=== PATIENT | female | born 1955 | race Caucasian/White ===

== ENCOUNTER → 2020-09-25 09:35 | Outpatient (CLI) | payer MEDICARE, SELFPAY ==
[2020-09-25 08:30] VITALS: BMI 42.5
[2020-09-25 10:24] LABS: Erythrocyte Sedimentation Rate 15 mm/hr (0-30); Hematocrit 40.1 % (37-47); Hemoglobin 12.8 g/dL (12.0-15.0); Mean Corp Hgb Conc 31.9 g/dL (32-36); Mean Corpuscular Hgb 29.9 pg (27.0-32.0); Mean Corpuscular Volume 93.7 fL (81-99); Mean Platelet Vol. 11.2 fl (6.2-12.0); Platelet Count 310 K/mm3 (150-450); Red Blood Count 4.28 M/mm3 (4.2-5.4); White Blood Count 9.5 K/mm3 (4.4-11.0)
[2020-09-25 10:48] LABS: PTHIN 321.1 pg/mL (18.4-80.1)
[2020-09-25 10:52] LABS: Vitamin B12 502 pg/mL (211-911)
[2020-09-25 10:58] LABS: ALB/GLOB Ratio 0.9 RATIO (0.9-2.4); AST(SGOT) 45 U/L (15-37); Alanine Aminotransfer ALT/SGPT 51 U/L (13-56); Albumin, Serum 3.9 g/dL (3.2-5.0); Alkaline Phosphatase 238 U/L (45-117); Anion Gap 6 (5-15); BUN 26 mg/dL (7-18); BUN/Creat Ratio 14.8 RATIO (10-20); Chloride 104 mmol/L (98-107); Creatinine, Serum 1.76 mg/dL (0.55-1.02); EST Glomerular Filtration Rate 31 mL/min (>60); Est Glom Filt Rate - Afr Amer 37 mL/min (>60); Globulin 4.3 g/dL (2.2-4.2); Glucose 156 mg/dL (74-106); Potassium 3.9 mmol/L (3.5-5.1); Protein, Total 8.2 g/dL (6.4-8.2); Sodium Level 139 mmol/L (136-145); Thyroid Stim Hormone (TSH) 4.77 uIU/mL (0.358-3.74)
[2020-09-25 18:34] LABS: CPK Total, Creatine Kinase 1081 U/L (26-192)
[2020-09-27 20:07] LABS: Free Kappa Light Chains 47.9 mg/L (3.3-19.4); Free Lambda Light Chains 24.2 mg/L (5.7-26.3)
[2020-09-29 16:07] LABS: Aldolase 12.3 U/L (3.3-10.3)
[2020-09-29 16:31] LABS: ANTINUCLEAR ANTIBODIES DIRECT Negative (Negative)
[2020-09-29 16:33] LABS: Myoglobin, Serum 908 ng/mL (25-58)
== END ==
PROVIDERS: Referring Provider Psychiatry & Neurology Neurology; Visit Provider Psychiatry & Neurology Neurology
DX: G62.9 Polyneuropathy, unspecified (principal); H02.409 Unspecified ptosis of unspecified eyelid; E11.9 Type 2 diabetes mellitus without complications; E55.9 Vitamin D deficiency, unspecified; E83.52 Hypercalcemia; M79.10 Myalgia, unspecified site; Z86.39 Personal history of other endocrine, nutritional and metabolic disease
CPT/HCPCS: 36415; 80053; 82085; 82550; 82607; 82652; 82746; 83874; 83883; 83970; 84443; 85027; 85652; 86038; 86225; 86235

== ENCOUNTER → 2020-10-09 15:36 | Outpatient (CLI) | payer MEDICARE, SELFPAY ==
[2020-09-25 08:30] VITALS: BMI 42.5
== END ==
PROVIDERS: Referring Provider Psychiatry & Neurology Neurology; Visit Provider Psychiatry & Neurology Neurology
DX: H02.409 Unspecified ptosis of unspecified eyelid (principal); G43.909 Migraine, unspecified, not intractable, without status migrainosus; G62.9 Polyneuropathy, unspecified; Z86.39 Personal history of other endocrine, nutritional and metabolic disease

== ENCOUNTER → 2020-11-06 15:23 | Outpatient (CLI) | payer MEDICARE, SELFPAY ==
[2020-11-06 14:34] VITALS: BMI 40.6
[2020-11-06 16:52] LABS: Hemoglobin A1c 6.5 % (3.8-5.6)
[2020-11-06 16:56] LABS: Cholesterol 279 mg/dL (200); High Density Lipoprotein 37 mg/dL; T4 Free Direct 1.09 ng/dL (0.76-1.46); Thyroid Stim Hormone (TSH) 1.46 uIU/mL (0.358-3.74); Triglycerides 399 mg/dL; Very Low Density Lipoprotein 80 mg/dL (5-40)
[2020-11-06 16:59] LABS: Microalbumin:Creatinine Ratio 93.6 mg/g CRE (<30 mg/g CRE)
== END ==
PROVIDERS: PCP Internal Medicine; Referring Provider Internal Medicine; Visit Provider Internal Medicine
DX: E11.9 Type 2 diabetes mellitus without complications (principal); R79.89 Other specified abnormal findings of blood chemistry; I10 Essential (primary) hypertension
CPT/HCPCS: 36415; 80061; 82043; 82570; 83036; 84439; 84443

== ENCOUNTER → 2020-11-19 15:45 | Outpatient (CLI) | payer MEDICARE, SELFPAY ==
[2020-11-06 14:34] VITALS: BMI 40.6
[2020-11-19 15:49] LABS: Bacteria 0 SEEN /hpf (None Seen); Mucous, Urine 0 SEEN /hpf (<or=2+); Red Blood Cells-Urine 0 SEEN /hpf (0-5); Squamous Epithelial Cells - UA 0 SEEN /hpf (5-10)
[2020-11-19 16:17] LABS: Color, Urine Yellow (Yellow); Glucose, Dipstick Normal (Normal); Ketone-Dipstick Negative (Negative); Leukocyte Esterase-Dipstick 500 /ul (Negative); Nitrite-Dipstick Negative (Negative); Occult Blood-Urine Negative /ul (Negative); Protein-Dipstick 15 mg/dl (Negative); Urine Bilirubin Dipstick Negative (Negative); Urine Clarity Sl. Cloudy (Clear); Urine Urobilinogen Normal (Normal)
[2020-11-19 17:36] LABS: Hyaline Cast 5-10 SEEN /lpf (0-5)
[2020-11-19 17:38] LABS: Transitional Epithelial - Ur 0-5 SEEN /hpf (0-5); White Blood Cells 10-25 SEEN /hpf (0-5)
[2020-11-19 17:40] LABS: Renal Epithelial Cells 0-5 SEEN /hpf (0-5)
== END ==
PROVIDERS: PCP Internal Medicine; Visit Provider Internal Medicine Nephrology
DX: N18.32 Chronic kidney disease, stage 3b (principal); N39.0 Urinary tract infection, site not specified
CPT/HCPCS: 81001; 87086; 87088

== ENCOUNTER → 2020-11-28 11:17 | Outpatient (CLI) | payer MEDICARE, SELFPAY ==
[2020-11-06 14:34] VITALS: BMI 40.6
--- NOTE | 2020-11-28 11:23 | US_ITS ---
STUDY: RENAL ULTRASOUND - COMPLETE REASON FOR EXAM: Female, 65 years old. CKD3B TECHNIQUE: Ultrasound evaluation of the kidneys was performed with real-time and static blake-scale imaging. COMPARISON: None. FINDINGS: RIGHT KIDNEY: Normal location of the right kidney, which is normal in size. The right kidney measures 9.2 cm x 5.4 cm x 5 cm. There is a normal cortex of the right kidney. The renal cortex measures 1.3 cm. There is no right renal mass or cyst. There are no right renal calculi. There is no right hydronephrosis. DISTAL RIGHT URETER: There is non-visualization of the distal right ureter. There is no demonstrated right ureterovesical junction calculus. There is no demonstrated right ureteral jet. LEFT KIDNEY: Normal location of the left kidney, which is normal in size. The left kidney measures 9.8 cm x 4.77 x 5.7 cm. There is a normal cortex of the left kidney. The renal cortex measures 2.1 cm. There is a 1.3 cm x 1.6 cm x 1.3 cm left renal cyst. There are no left renal calculi. There is no left hydronephrosis. DISTAL LEFT URETER: There is non-visualization of the distal left ureter. There is no demonstrated left ureterovesical junction calculus. There is no demonstrated left ureteral jet. BLADDER: The distended urinary bladder has a volume of 63 ml. The bladder cannot be assessed adequately due to lack of distention. US/Kidney and Bladder IMPRESSION: Left renal cyst. Electronically Signed: Bernardo Queen MD at 12:35 EST , Service support ,
[2020-11-28 13:34] LABS: CPK Total, Creatine Kinase 982 U/L (26-192); T4 Free Direct 0.86 ng/dL (0.76-1.46); Thyroid Stim Hormone (TSH) 3.74 uIU/mL (0.358-3.74)
[2020-12-02 20:07] LABS: Albumin 3.4 g/dL (2.9-4.4); Aldolase 10.9 U/L (3.3-10.3); Alpha-1-Globulins 0.2 g/dL (0.0-0.4); Alpha-2-Globulins 1.1 g/dL (0.4-1.0); Immunoglobulin A 164 mg/dL (87-352); Immunoglobulin G 1061 mg/dL (586-1602); Immunoglobulin M 77 mg/dL (26-217); PROEL- TOTAL PROTEIN 6.8 g/dL (6.0-8.5)
[2020-12-03 13:01] LABS: Myoglobin, Serum 966 ng/mL (25-58)
== END ==
PROVIDERS: Psychiatry & Neurology Neurology; PCP Internal Medicine; Referring Provider Internal Medicine Nephrology; Visit Provider Internal Medicine Nephrology
DX: N18.32 Chronic kidney disease, stage 3b (principal); E03.9 Hypothyroidism, unspecified; G62.9 Polyneuropathy, unspecified; G72.9 Myopathy, unspecified
CPT/HCPCS: 36415; 76770; 82085; 82550; 82784; 83874; 84165; 84439; 84443; 86334; 86335

== ENCOUNTER → 2020-12-31 11:55 | Outpatient (CLI) | payer MEDICARE, SELFPAY ==
[2020-11-06 14:34] VITALS: BMI 40.6
[2020-12-31 13:01] LABS: PTHIN 404.3 pg/mL (18.4-80.1)
[2020-12-31 13:14] LABS: Vitamin D,25 Hydroxy 11.6 ng/mL
[2020-12-31 13:35] LABS: Albumin, Serum 3.7 g/dL (3.2-5.0); BUN 25 mg/dL (7-18); BUN/Creat Ratio 14.6 RATIO (10-20); Calcium,Total 9.7 mg/dL (8.5-10.1); Chloride 102 mmol/L (98-107); Creatinine, Serum 1.71 mg/dL (0.55-1.02); EST Glomerular Filtration Rate 32 mL/min (>60); Est Glom Filt Rate - Afr Amer 38 mL/min (>60); Glucose 132 mg/dL (74-106); Phosphorus 2.5 mg/dL (2.5-4.9); Potassium 4.7 mmol/L (3.5-5.1); Sodium Level 135 mmol/L (136-145)
[2021-01-02 15:28] LABS: Vitamin D 1,25-Dihydroxy 61.7 pg/mL (19.9-79.3)
== END ==
PROVIDERS: PCP Internal Medicine; Visit Provider Internal Medicine Nephrology
DX: N18.32 Chronic kidney disease, stage 3b (principal); E21.0 Primary hyperparathyroidism; E83.52 Hypercalcemia
CPT/HCPCS: 36415; 80069; 82306; 82652; 83970

== ENCOUNTER → 2021-02-20 13:09 | Outpatient (CLI) | payer MEDICARE, SELFPAY ==
[2021-02-10 10:41] VITALS: BMI 40.6
[2021-02-20 15:34] LABS: Albumin, Serum 3.7 g/dL (3.2-5.0); BUN 22 mg/dL (7-18); BUN/Creat Ratio 12.3 RATIO (10-20); CPK Total, Creatine Kinase 912 U/L (26-192); Calcium,Total 11.1 mg/dL (8.5-10.1); Chloride 100 mmol/L (98-107); Creatinine, Serum 1.79 mg/dL (0.55-1.02); EST Glomerular Filtration Rate 30 mL/min (>60); Est Glom Filt Rate - Afr Amer 36 mL/min (>60); Glucose 188 mg/dL (74-106); Potassium 4.1 mmol/L (3.5-5.1); Sodium Level 138 mmol/L (136-145)
[2021-02-22 13:54] LABS: Myoglobin, Serum 935 ng/mL (25-58)
== END ==
PROVIDERS: Psychiatry & Neurology Neurology; PCP Internal Medicine; Visit Provider Internal Medicine
DX: G72.9 Myopathy, unspecified (principal); N18.32 Chronic kidney disease, stage 3b; E21.0 Primary hyperparathyroidism
CPT/HCPCS: 36415; 80069; 82550; 83874; 83970

== ENCOUNTER → 2021-03-13 14:21 | Outpatient (CLI) | payer MEDICARE, SELFPAY ==
[2020-11-06 14:34] VITALS: BMI 40.6
[2021-02-24 13:59] VITALS: BMI 40.6
[2021-03-13 15:43] LABS: Albumin, Serum 3.8 g/dL (3.2-5.0); BUN 39 mg/dL (7-18); BUN/Creat Ratio 22.9 RATIO (10-20); Calcium,Total 10.4 mg/dL (8.5-10.1); Chloride 100 mmol/L (98-107); EST Glomerular Filtration Rate 32 mL/min (>60); Est Glom Filt Rate - Afr Amer 39 mL/min (>60); Glucose 158 mg/dL (74-106); Phosphorus 3.3 mg/dL (2.5-4.9); Potassium 4.2 mmol/L (3.5-5.1); Sodium Level 136 mmol/L (136-145)
[2021-03-16 07:57] LABS: PTHIN 269.5 pg/mL (18.4-80.1)
== END ==
PROVIDERS: PCP Internal Medicine; Referring Provider Internal Medicine Nephrology; Visit Provider Internal Medicine Nephrology
DX: N18.32 Chronic kidney disease, stage 3b (principal); E21.0 Primary hyperparathyroidism
CPT/HCPCS: 36415; 80069; 83970

== ENCOUNTER → 2021-03-19 15:51 | Outpatient (CLI) | payer MEDICARE, SELFPAY ==
[2021-03-19 14:06] VITALS: BMI 40.6
--- NOTE | 2021-03-19 15:55 | RAD_ITS ---
STUDY: X-RAY - LEFT FOOT CLINICAL: Female, 66 years old. possible foreign body TECHNIQUE: 2 view(s) of the foot. COMPARISON: None. FINDINGS: There is a plantar calcaneal spur. Normal visualized subtalar, talonavicular, calcaneocuboid, tarsal and tarsometatarsal articulations. Normal metatarsi. There is degenerative arthrosis of the metatarsophalangeal joint of the hallux . Normal tibial and fibular sesamoid bones. Normal interphalangeal joint of the great toe. Normal phalanges of the great toe. Normal second through fifth metatarsophalangeal joints. Normal interphalangeal joints and phalanges of the lesser toes. The soft tissue structures are unremarkable. RAD/Foot 2 Views IMPRESSION: Degenerative changes of the first MTP joint. No demonstrate a radiopaque foreign body. If there is high index of suspicion for radiolucent foreign body (including glass), ultrasound recommended. Electronically Signed: aJcob Gastelum MD ([place]) at 14:48 EDT , Service support ,
== END ==
PROVIDERS: PCP Internal Medicine; Referring Provider Internal Medicine Endocrinology, Diabetes & Metabolism; Visit Provider Internal Medicine Endocrinology, Diabetes & Metabolism
DX: S99.922A Unspecified injury of left foot, initial encounter (principal)
CPT/HCPCS: 73620

== ENCOUNTER 2021-05-15 12:47 | Emergency (ER) | payer MEDICARE, SELFPAY ==
[2021-05-15 12:48] VITALS: BP 143/87; PULSE 99; RESP 20; TEMP 36.4; O2SAT 97; BMI 41.5
--- NOTE | 2021-05-15 13:54 | RAD_ITS ---
STUDY: X-RAY CHEST REASON FOR EXAM: Female, 66 years old. Cough TECHNIQUE: Single AP portable view of the chest. COMPARISON: None. FINDINGS: There is elevation of the right hemidiaphragm. The lungs are clear and expanded. There is no demonstrated pleural abnormality. Normal size heart. Normal mediastinum and khai. Normal visualized pulmonary arteries. There is atherosclerotic tortuosity of the aortic arch and descending thoracic aorta. There are diffuse degenerative changes of the visualized thoracic spine. Normal visualized ribs, clavicles, and shoulders. There is no demonstrated abnormality of the visualized soft tissue structures of the upper abdomen. RAD/Chest 1 View (Portable) IMPRESSION: No acute abnormality is seen. Electronically Signed: Bernardo Queen MD at 15:12 EDT , Service support ,
--- NOTE | 2021-05-15 13:54 | CT_ITS ---
STUDY: CT ABDOMEN AND PELVIS WITHOUT CONTRAST REASON FOR EXAM: Female, 66 years old. Right flank pain RADIATION DOSAGE (If Supplied By Facility): CTDIvol = ( 22.25 ) mGy, DLP = ( 1107.00 ) mGycm TECHNIQUE: Transaxial images were obtained from the dome of the diaphragm to the symphysis pubis without oral contrast, and without intravenous contrast. Sagittal and coronal images were reconstructed. Individualized dose optimization techniques were used for this CT. COMPARISON: None. FINDINGS: Calcified right hilar lymph nodes. Mild increased linear markings at the lung bases more prominent on the left side suggestive of scarring. The visualized portions of the heart are within normal limits. Normal liver. There are surgical clips in the gallbladder fossa consistent with a prior cholecystectomy. Normal spleen. Normal pancreas. Normal bilateral adrenal glands. Normal right kidney. 2 mm nonobstructive calculus in the upper pole calyx of the left kidney. Normal visualized stomach. Normal small intestine. Normal colon. The appendix is visualized and appears normal. There is scattered atherosclerotic calcification of the abdominal aorta, without a demonstrated aneurysm. Normal inferior vena cava. Normal retroperitoneum. Normal urinary bladder. Normal abdominal wall. There are diffuse degenerative changes of the visualized lumbar spine. CT/Abdomen/Pelvis without Cont IMPRESSION: Nonobstructive 2 mm calculus in the left kidney. The patient is status post cholecystectomy. Electronically Signed: Bernardo Queen MD at 15:10 EDT , Service support ,
--- NOTE | 2021-05-15 13:57 | EDS_ITS ---
HPI HPI - GI History of Present Illness Chief Complaint: Flank Pain Informant: patient Abdominal Pain/Flank Pain Onset: Today Context: Gradual Onset Timing: Continuous Location: Right Flank Current Severity: Mild Maximum Severity: Mild Nausea/Vomiting/Emesis GI Symptom: Negative for Nausea and Vomiting Diarrhea/Melena/Hematochezia GI Symptom: Negative for Diarrhea Associated Symptoms Associated Symptoms: Negative for Dysuria, Frequency, Hematuria and Urgency Narrative Narrative: Six 6-year-old female history of insulin-dependent diabetes, hypertension and prior kidney stones for which she is never needed surgery. States that she has had right flank pain dull and aching at times sharp this morning. Denies any nausea vomiting diarrhea. Denies any fever or chills. Denies any dysuria. She is never needed any surgical intervention for the k idney stones. Also states last night she did have an episode where she felt diaphoretic but was not having any pain at the time. She has had a cough. She wants to make sure she does not have pneumonia. Prior similar symptoms: Yes Recent Illness/Hospitalization: No PFSH PFSH Medical History (Updated 05/15/21 @ 16:[address] Robert Gottlieb MD) Anxiety Bilateral leg edema Chronic fatigue syndrome CKD (chronic kidney disease), stage III Depression Fibromyalgia GERD (gastroesophageal reflux disease) Glaucoma Gout History of thyroid nodule Hypertension Insomnia Lyme disease Macular degeneration Morbid obesity BENTLEY on CPAP Osteoporosis Sensorineural hearing loss of both ears Type 2 diabetes mellitus Vitamin D deficiency Home Medications CPAP #1 ea 09/24/20 [History Last Taken Unknown] aspirin 81 mg tablet,delayed release 81 mg PO DAILY 09/24/20 [History Last Taken Unknown] blood pressure monitor #1 ea 09/24/20 [History Last Taken Unknown] blood sugar diagnostic #10 ea 09/24/20 [History Last Taken Unknown] blood-glucose meter #1 ea 09/24/20 [History Last Taken Unknown] fluticasone propionate 50 mcg/actuation nasal spray,suspension 2 spray INTRANASAL DAILY 09/24/20 [History Last Taken Unknown] insulin aspart U-100 100 unit/mL (3 mL) subcutaneous pen See Rx Instructions .ROUTE .COMPLEX 09/24/20 [History Last Taken Unknown] lancets #100 ea 09/24/20 [History Last Taken Unknown] pen needle, diabetic 32 gauge x 1/4 #50 ea 09/24/20 [History Last Taken Unknown] vit C,E,zinc,Ky-fnpez-3-lutein-zeaxanthin 250 mg-2.5 mg-0.5 mg capsule 1 cap PO DAILY cap 09/24/20 [History Last Taken Unknown] alendronate 70 mg tablet 70 mg PO QWEEK #12 tab 11/26/20 [Rx Last Taken Unknown] allopurinol 300 mg tablet 300 mg PO DAILY #90 tab 11/26/20 [Rx Last Taken Unknown] duloxetine 60 mg capsule,delayed release 120 mg PO DAILY #180 cap 11/26/20 [Rx Last Taken Unknown] lisinopril 5 mg tablet 5 mg PO DAILY #90 tab 11/26/20 [Rx Last Taken Unknown] simethicone 80 mg chewable tablet 80 mg PO 4X/DAY PRN #30 tab 11/26/20 [Rx Last Taken Unknown] folic acid 1 mg tablet 1 mg PO DAILY #30 tab 01/06/21 [Rx Last Taken Unknown] insulin degludec 100 unit/mL (3 mL) subcutaneous pen 38 unit SC QHS ml 02/24/21 [History Last Taken Unknown] latanoprost 0.005 % eye drops 1 drp OPHTHALMIC (EYE) DAILY 02/24/21 [History Last Taken Unknown] saliva substitute combo no.9 15 ml MUCOUS MEMBRANE BID-QID PRN #1000 ml 02/24/21 [Rx Last Taken Unknown] dulaglutide 1.5 mg/0.5 mL subcutaneous pen injector 1.5 mg SC QWEEK #2 ml 02/27/21 [Rx Last Taken Unknown] ergocalciferol (vitamin D2) 1,250 mcg (50,000 unit) capsule 1,250 mcg PO .twice a week #24 cap 03/19/21 [Rx Last Taken Unknown] famotidine 20 mg tablet 20 mg PO DAILY PRN #30 tab 03/31/21 [Rx Last Taken Unknown] furosemide 20 mg tablet 40 mg PO DAILY #180 tab 03/31/21 [Rx Last Taken Unknown] amitriptyline 100 mg tablet 100 mg PO QHS #90 tab 04/06/21 [Rx Last Taken Unknown] buspirone 10 mg tablet 10 mg PO TID #270 tab 04/06/21 [Rx Last Taken Unknown] pantoprazole 40 mg tablet,delayed release 40 mg PO DAILY #90 tab 05/06/21 [Rx Last Taken Unknown] Allergy/AdvReac Type Severity Reaction Status Date / Time gemfibrozil AdvReac Unknown Myalgia Verified 05/15/21 12:50 Family History Brother Diabetes Mother Diabetes Heart disease Hypertension Grandmother Diabetes Sister Diabetes Heart disease Hypertension Thyroid disorder Father Kidney disease Grandfather Kidney disease Surgical History H/O: hysterectomy History of bilateral knee arthroplasty History of cholecystectomy Social History Smoking Status: Never smoker alcohol intake: never substance use type: does not use ROS ROS ED ROS Narrative Right flank pain. Review of Systems ROS Unobtainable: Denies due to encephalopathy Constitutional Constitutional ED: Denies fever(s) ENT ENT ED: Denies ear pain or sore throat Cardiovascular Cardiovascular: Denies chest pain Respiratory/Chest Respiratory/Chest: Reports cough; Denies dyspnea Gastrointestinal Gastrointestinal: Reports abdominal pain; Denies diarrhea, nausea or vomiting Genitourinary Genitourinary ED: Denies dysuria or hematuria Musculoskeletal Musculoskeletal: Denies myalgias Integumentary Denies rash Neurologic Neurologic: Denies headache(s) Psychiatric Psychiatric: Denies depression Endocrine Endocrinology: Denies polyuria Hematologic/Lymphatic Hematologic/Lymphatic: Denies easy bruising Allergic/Immunologic Allergic/Immunologic ED: Denies urticaria EXAM Physical Exam Narrative Exam Narrative: Well-appearing female no acute distress. Vital signs stable afebrile. HEENT exam normal. Lungs clear to auscultation bilaterally. Heart regular rate and rhythm no murmur. Abdomen soft nontender nondistended normal bowel sounds no peritoneal signs. When I push on her right upper quadrant the pains in her right CVA region. Moving all 4 extremities. Back nontender. Neurologically awake alert with no focal motor deficits. Const Vital Signs: 05/15/21 12:48 Temperature 97.5 F L Temperature Source Temporal Pulse Rate 99 Respiratory Rate 20 H Blood Pressure 143/87 H Blood Pressure Mean 105 Pulse Ox 97 Oxygen Delivery Method Room Air Positive well nourished, well developed and obese; Negative for cachectic, contractures or unkempt General Appearance ED: well developed and NAD; Negative for unkempt, cachectic or contractures Nutritional Appearance: obese; Negative for cachectic HEENT Reports moist mucous membranes normocephalic and atraumatic; Negative for trauma or tenderness Eyes PERRL and EOMs intact bilaterally General Eye ED: Negative for pale conjunctiva Neck no lymphadenopathy, supple and no JVD General: Negative for tenderness Resp normal respiratory effort and clear to auscultation bilaterally Auscultation: Negative for rales, rhonchi or wheezes Cardio regular rate, regular rhythm, S1 normal heart sound, S2 normal heart sound and no murmurs GI non-tender, non-distended and no masses Inspection: Negative for abdominal distention Auscultation: normoactive bowel sounds Palpation: soft; Negative for tender, guarding, rigid or rebound tenderness present Back/Spine no CVA tenderness General Back: Negative for CVA tenderness Cervical Spine: Negative for cervical spine tenderness Thoracic Spine / Upper Back: Negative for thoracic spinal tenderness Extremity full ROM General Extremety ED: Negative for edema or tenderness General Extremity: Negative for edema Neuro moves all extremities Sensorium / Orientation: alert, oriented to person, oriented to place and oriented to time; Negative for orientation impaired or confused Motor Exam: strength 5/5 throughout Psych mental status grossly normal Appearance: Negative for unkempt Skin Lesions: no lesions Rashes: no rashes MDM MDM MDM Narrative Medical decision making narrative: 66-year-old female with right flank pain. Concern for kidney stone. CAT scan labs are pending. She currently did not want anything for pain or nausea. She is also had a recent cough and 1 to be ruled out for pneumonia so a chest x-ray and a Covid test are also pending. Repeat exam patient doing well at 4:10 PM. Abdomen is benign. She now involved her test. She will be discharged home with follow-up with primary care physician. Urine had 6-10 white cells will be sent for urine culture but there was no blood or nitrites or any urinary symptoms so I am holding off on treatment. Lab Data Attestation: I reviewed the patient's lab results. Lab results narrative: CBC shows white count 6.9. Hemoglobin 11.6. Electrolytes unremarkable gap 6. Creatinine slightly elevated 1.44. Liver enzymes unremarkable alk phos 144. UA shows 5-10 white cells no bacteria no nitrates. Chest x-ray unremarkable read by myself the radiologist. CT flank study she has a renal stone but no acute ureteral calculi read by the radiologist and reviewed by me. Covid test negative. Labs: Laboratory Results - last 24 hr 05/15/21 05/15/21 05/15/21 13:30 13:30 14:35 WBC 6.9 RBC 3.78 L Hgb 11.6 L Hct 36.1 L MCV 95.5 MCH 30.7 MCHC 32.1 RDW Std Deviation 50.4 H RDW Coeff of Paulo 14.5 Plt Count 225 MPV 11.4 Immature Gran % (Auto) 0.400 Neut % (Auto) 55.0 Lymph % (Auto) 25.6 Sunflower % (Auto) 6.5 Eos % (Auto) 12.2 H Baso % (Auto) 0.3 Absolute Neuts (auto) 3.8 Absolute Lymphs (auto) 1.76 Nucleated RBC % 0 Sodium 138 Potassium 4.2 Chloride 107 Carbon Dioxide 25.0 Anion Gap 6 BUN 44 H Creatinine 1.44 H Estim Creat Clear Calc 29.00 Est GFR (MDRD) Af Amer 47 L Est GFR (MDRD) Non-Af 39 L BUN/Creatinine Ratio 30.6 H Glucose 167 H Calcium 10.0 Total Bilirubin 0.40 AST 45 H ALT 47 Alkaline Phosphatase 144 H Total Protein 7.5 Albumin 3.6 Globulin 3.9 Albumin/Globulin Ratio 0.9 Urine Color Yellow Urine Clarity Clear Urine pH 5.0 Ur Specific [place] 1.015 Urine Protein 15 H Urine Glucose (UA) Normal Urine Ketones Negative Urine Occult Blood Negative Urine Nitrite Negative Urine Bilirubin Negative Urine Urobilinogen Normal Ur Leukocyte Esterase 500 H Urine RBC 0 SEEN Urine WBC 5-10 SEEN Ur Squamous Epith Cells 0-5 SEEN Urine Bacteria 0 SEEN Urine Mucus 0 SEEN Radiography Diagnostic Testing: Radiology Impression Abdomen/Pelvis CT 05/15/21 13:54 IMPRESSION: Nonobstructive 2 mm calculus in the left kidney. The patient is status post cholecystectomy. Electronically Signed: Bernardo Queen MD at 15:10 EDT , Service support , Chest X-Ray 05/15/21 13:54 IMPRESSION: No acute abnormality is seen. Electronically Signed: Bernardo Queen MD at 15:12 EDT , Service support , Discharge Plan Triage Chief Complaint: Flank Pain ED Provider: Robert Gottlieb Dx/Rx/DC Orders Clinical Impression: Acute right flank pain Instructions: ED Flank Pain, Uncertain Cause Prescriptions: No Action (DME) lancets [Accu-Chek Softclix Lancets] Misc See Rx Instructions .ROUTE .MEDSUPPLY Qty: 100 RF: 0 (DME) Accu-Chek Christi Plus test strp Strip See Rx Instructions .ROUTE .MEDSUPPLY Qty: 10 RF: 0 vit C,E,zinc,Fv-kkhty-0-lutein-zeaxanthin 250 mg-2.5 mg-0.5 mg capsule 250-2.5-0.5 mg capsule 1 cap PO DAILY RF: 0 insulin aspart U-100 [Novolog Flexpen U-100 Insulin] 100 unit/mL (3 mL) insulin pen See Rx Instructions .ROUTE .COMPLEX RF: 0 (DME) pen needle, diabetic [Novofine 32] 32 gauge x 1/4 needle See Rx Instructions .ROUTE .MEDSUPPLY Qty: 50 RF: 0 (DME) CPAP See Rx Instructions .Route .MEDSUPPLY Qty: 1 RF: 0 (DME) blood-glucose meter Misc See Rx Instructions .ROUTE .MEDSUPPLY Qty: 1 RF: 0 (DME) blood pressure monitor [Blood Pressure Kit] Kit See Rx Instructions .ROUTE .MEDSUPPLY Qty: 1 RF: 0 aspirin 81 mg tablet,delayed release (DR/EC) 81 mg PO DAILY RF: 0 fluticasone propionate 50 mcg/actuation spray,suspension 2 spray INTRANASAL DAILY RF: 0 ergocalciferol (vitamin D2) 1,250 mcg (50,000 unit) capsule 1,250 mcg PO .twice a week Qty: 24 RF: 0 latanoprost 0.005 % drops 1 drp ophthalmic (eye) DAILY RF: 0 Tresiba FlexTouch U-100 100 unit/mL (3 mL) insulin pen 38 unit SC QHS RF: 0 Biotene Dry Mouth Oral Rinse Mouthwash 15 ml mucous membrane BID-QID PRN (Reason: dry mouth) Qty: 1000 RF: 2 folic acid 1 mg tablet 1 mg PO DAILY Qty: 30 RF: 0 buspirone 10 mg tablet 10 mg PO TID Qty: 270 RF: 0 amitriptyline 100 mg tablet 100 mg PO QHS Qty: 90 RF: 0 alendronate 70 mg tablet 70 mg PO QWEEK Qty: 12 RF: 2 allopurinol 300 mg tablet 300 mg PO DAILY Qty: 90 RF: 1 duloxetine 60 mg capsule,delayed release(DR/EC) 120 mg PO DAILY Qty: 180 RF: 1 lisinopril 5 mg tablet 5 mg PO DAILY Qty: 90 RF: 2 simethicone 80 mg tablet,chewable 80 mg PO 4X/DAY PRN (Reason: Flatulence) Qty: 30 RF: 1 Trulicity 1.5 mg/0.5 mL pen injector 1.5 mg SC QWEEK Qty: 2 RF: 2 famotidine 20 mg tablet 20 mg PO DAILY PRN (Reason: gerd) Qty: 30 RF: 1 furosemide 20 mg tablet 40 mg PO DAILY Qty: 180 RF: 1 pantoprazole 40 mg tablet,delayed release (DR/EC) 40 mg PO DAILY Qty: 90 RF: 2 Primary Care Provider: Vamsi Epperson Referrals: Vamsi Epperson MD [Primary Care Provider] - 3-5 Days if not improving Activity Restrictions/Additional Instructions: Plenty of fluids and rest. Tylenol Motrin for pain. Follow-up with your doctor if not improving in 3 to 5 days. We did send a urine culture if that shows any signs of infection we will notify you. Disposition Disposition: Home, Self Care
[2021-05-15 14:16] LABS: Absolute Lymphocyte Count 1.76 X10^3/uL (0.83-4.51); Absolute Neutrophil Count 3.8 X10^3/uL (2.0-7.7); Basophil# 0.02 X10^3/uL; Basophil% 0.3 % (0-1); Eosinophil# 0.84 X10^3/uL; Eosinophils% 12.2 % (0-5); Hematocrit 36.1 % (37-47); Hemoglobin 11.6 g/dL (12.0-15.0); Lymphocyte # 1.76 X10^3/ul (0.83-4.51); Lymphocyte % 25.6 % (19-41); Mean Corp Hgb Conc 32.1 g/dL (32-36); Mean Corpuscular Hgb 30.7 pg (27.0-32.0); Mean Corpuscular Volume 95.5 fL (81-99); Mean Platelet Vol. 11.4 fl (6.2-12.0); Monocyte# 0.45 X10^3/uL; Monocyte% 6.5 % (0-10); NRBC Flagged by Analyzer 0 % (0-5); Neutrophil # 3.78 X10^3/uL (2.7-7.7); Platelet Count 225 K/mm3 (150-450); RBC Distribution Width CV 14.5 % (11.6-14.6); RBC Distribution Width SD 50.4 fl (35.1-43.9); Red Blood Count 3.78 M/mm3 (4.2-5.4); White Blood Count 6.9 K/mm3 (4.4-11.0)
[2021-05-15 14:29] LABS: ALB/GLOB Ratio 0.9 RATIO (0.9-2.4); AST(SGOT) 45 U/L (15-37); Alanine Aminotransfer ALT/SGPT 47 U/L (13-56); Albumin, Serum 3.6 g/dL (3.2-5.0); Alkaline Phosphatase 144 U/L (45-117); Anion Gap 6 (5-15); BUN 44 mg/dL (7-18); BUN/Creat Ratio 30.6 RATIO (10-20); Chloride 107 mmol/L (98-107); Creatinine, Serum 1.44 mg/dL (0.55-1.02); EST Glomerular Filtration Rate 39 mL/min (>60); Est Glom Filt Rate - Afr Amer 47 mL/min (>60); Globulin 3.9 g/dL (2.2-4.2); Glucose 167 mg/dL (74-106); Potassium 4.2 mmol/L (3.5-5.1); Protein, Total 7.5 g/dL (6.4-8.2); Sodium Level 138 mmol/L (136-145)
[2021-05-15 14:42] LABS: Bacteria 0 SEEN /hpf (None Seen); Color, Urine Yellow (Yellow); Glucose, Dipstick Normal (Normal); Ketone-Dipstick Negative (Negative); Leukocyte Esterase-Dipstick 500 /ul (Negative); Mucous, Urine 0 SEEN /hpf (<or=2+); Nitrite-Dipstick Negative (Negative); Occult Blood-Urine Negative /ul (Negative); Protein-Dipstick 15 mg/dl (Negative); Red Blood Cells-Urine 0 SEEN /hpf (0-5); Specific Gravity, Urine 1.015 (1.002-1.030); Urine Bilirubin Dipstick Negative (Negative); Urine Clarity Clear (Clear); Urine Urobilinogen Normal (Normal)
[2021-05-15 14:50] LABS: Squamous Epithelial Cells - UA 0-5 SEEN /hpf (5-10); White Blood Cells 5-10 SEEN /hpf (0-5)
[2021-05-15] MEDS: 0.9% Normal Saline 1,000 ML 125 ML IV (15:09)
[2021-05-15 17:10] VITALS: BP 128/81; PULSE 87; PULSE 89; RESP 16; O2SAT 95
== END 2021-05-15 17:21 | disposition home or self-care (01) ==
PROVIDERS: Emergency Provider Emergency Medicine; PCP Internal Medicine
DX: R10.9 Unspecified abdominal pain (principal); E66.9 Obesity, unspecified; I12.9 Hypertensive chronic kidney disease with stage 1 through stage 4 chronic kidney disease, or unspecified chronic kidney disease; H40.9 Unspecified glaucoma; G47.33 Obstructive sleep apnea (adult) (pediatric); K21.9 Gastro-esophageal reflux disease without esophagitis; F41.9 Anxiety disorder, unspecified; F32.9 Major depressive disorder, single episode, unspecified; N18.30 Chronic kidney disease, stage 3 unspecified; Z79.82 Long term (current) use of aspirin; Z87.442 Personal history of urinary calculi; Z79.899 Other long term (current) drug therapy
CPT/HCPCS: 71045; 74176; 80053; 81001; 85025; 87086; 87088; 87426; 96360; 96361; 99284; J7030

== ENCOUNTER → 2021-05-18 13:51 | Outpatient (CLI) | payer MEDICARE, SELFPAY ==
[2021-05-18 15:37] LABS: Vitamin D,25 Hydroxy 51.6 ng/mL
[2021-05-18 15:46] LABS: Microalbumin,Random Urine 57.3 mg/L (NO RANGE EST.); Microalbumin:Creatinine Ratio 112.6 mg/g CRE (<30 mg/g CRE)
== END ==
PROVIDERS: PCP Internal Medicine; Referring Provider Nurse Practitioner Family; Visit Provider Nurse Practitioner Family
DX: E11.22 Type 2 diabetes mellitus with diabetic chronic kidney disease (principal); N18.32 Chronic kidney disease, stage 3b
CPT/HCPCS: 36415; 82043; 82306; 82570

== ENCOUNTER → 2021-06-23 16:34 | Outpatient (CLI) | payer MEDICARE, SELFPAY ==
[2020-11-06 14:34] VITALS: BMI 40.6
--- NOTE | 2021-06-23 16:36 | MRI_ITS ---
EXAM: MR HEAD WITHOUT INTRAVENOUS CONTRAST CLINICAL INDICATION: worsening headaches; ptosis TECHNIQUE: Multiplanar and multisequence MR images of the brain were obtained without intravenous contrast. This report was created using [employer] report generation technology. COMPARISON: None. FINDINGS: BRAIN AND EXTRA-AXIAL SPACES: Unremarkable. No intra- or extra-axial hemorrhage. No evidence of acute infarct. No intracranial mass or mass effect. There is preservation of the monzon/white matter interface. Posterior fossa structures are unremarkable. Ventricles are appropriate for age. No hydrocephalus. Basal cisterns are patent. SELLA: Unremarkable. Normal sella turcica, pituitary gland, infundibular stalk, optic chiasm and hypothalamus. AUDITORY SYSTEM: Unremarkable. The internal auditory canals are patent. BONES/JOINTS: Unremarkable. No discrete lytic or blastic abnormalities. SINUSES: Ethmoid and right frontal sinus disease. MASTOID AIR CELLS: Unremarkable as visualized. Clear. ORBITS: Unremarkable as visualized. Both globes, extraocular muscles, optic nerves and retrobulbar fat appear unremarkable. VASCULATURE: Unremarkable as visualized. Normal flow voids in the major intracranial circulation. MRI/Brain without Contrast IMPRESSION: Ethmoid and right frontal sinus disease. Electronically Signed: Osmel Chaney MD at 17:43 EDT , Service support ,
== END ==
PROVIDERS: PCP Internal Medicine; Referring Provider Psychiatry & Neurology Neurology; Visit Provider Psychiatry & Neurology Neurology
DX: H02.409 Unspecified ptosis of unspecified eyelid (principal); R51.9 Headache, unspecified
CPT/HCPCS: 70551

== ENCOUNTER → 2021-06-25 11:23 | Outpatient (CLI) | payer MEDICARE, SELFPAY ==
--- NOTE | 2021-06-25 17:09 | STRESSREP ---
Stress Test Report Date: 06-25-2021 Procedure: Exercise tolerance test/imaging study Indications: Fatigue, hypertension Consent: Per the patient Procedure: The patient exercised on a [place] protocol for 41 seconds completing not completing Stage I achieving a peak heart rate of 118 bpm (76% predicted maximal heart rate) with a peak blood pressure 118/70 mmHg and a peak MET capacity of 3 METs. The baseline ECG demonstrated sinus rhythm. The peak exercise ECG demonstrated somatic/motion artifact with no obvious ECG changes. There were no cardiac dysrhythmias pretest, during exercise, or recovery. The functional capacity was considered decreased. There was left shoulder discomfort pretest, during exercise, and recovery. The examination was discontinued secondary to dyspnea [place]: I cannot keep up, have to stop .. Impression: 1. Technically inadequate (percent predicted maximal heart rate less than 85%) exercise tolerance test 2. Peak exercise ECG somatic/motion artifact with no obvious ECG changes 3. There were no cardiac dysrhythmias pretest, during exercise, or recovery This note was generated with [employer] software. It may contain incorrect words, spelling, and punctuation that were not noted in checking the note before signing.
== END ==
PROVIDERS: PCP Internal Medicine; Referring Provider Nurse Practitioner Family; Visit Provider Nurse Practitioner Family
DX: I12.9 Hypertensive chronic kidney disease with stage 1 through stage 4 chronic kidney disease, or unspecified chronic kidney disease (principal); E78.00 Pure hypercholesterolemia, unspecified; N18.32 Chronic kidney disease, stage 3b; E11.22 Type 2 diabetes mellitus with diabetic chronic kidney disease; E11.65 Type 2 diabetes mellitus with hyperglycemia; Z79.4 Long term (current) use of insulin; R06.00 Dyspnea, unspecified; E66.01 Morbid (severe) obesity due to excess calories
CPT/HCPCS: 93017

== ENCOUNTER → 2021-07-24 06:13 | Outpatient (CLI) | payer MEDICARE, SELFPAY ==
--- NOTE | 2021-07-24 08:09 | STRESSREP ---
Stress Test Report Date: 07-24-2021 Procedure: Pharmacologic stress nuclear imaging study Indications: Shortness of breath/dyspnea on exertion; hypertension; mitral valve prolapse Consent: Per the patient Procedure: The patient underwent pharmacologic (Regadenoson 0.4mg ) evaluation with a peak heart rate of 100 beats per minute (64%predicted maximal heart rate) and a peak blood pressure of 120/60 mmHg. The baseline ECG demonstrated sinus rhythm. The peak pharmacologic ECG demonstrated no obvious ECG changes. There were no cardiac dysrhythmias pretest, during pharmacologic infusion, or recovery. There was no complaint of chest discomfort during pharmacologic infusion or recovery. The examination was discontinued secondary to completion of protocol. Impression: 1. Pharmacologic (Regadenoson) evaluation 2. Peak pharmacologic ECG with no obvious ECG changes. 3. There were no cardiac dysrhythmias pretest, during pharmacologic infusion, or recovery. 4. Nuclear images pending Myocardial perfusion imaging study: Technique: The patient was injected with millicuries of technetium 99m Cardiolite and subsequently rest SPECT Cardiolite nuclear imaging was obtained in the horizontal long, vertical long, and short axis views. The patient underwent pharmacologic (Regadenoson) evaluation with a peak heart rate of 100 beats per minute (64% percent predicted maximal heart rate) and a peak blood pressure of 120/60 mmHg. The patient was injected with millicuries of technetium 99m Cardiolite and subsequently stress SPECT Cardiolite nuclear imaging was obtained in the horizontal long, vertical long, and short axis views. A gated Cardiolite study at peak stress was obtained. Interpretation: Rest and stress SPECT Cardiolite nuclear imaging status post realignment, normalization, and attenuation correction demonstrate relative uniform tracer uptake and myocardial perfusion appearing within normal limits. There is end systolic thickening and brightening. The gated Cardiolite study demonstrates myocardial thickening and inward wall motion. The reported LVEF is 78%. Impression: 1. Rest and stress SPECT Cardiolite nuclear imaging demonstrate relative uniform tracer uptake and myocardial perfusion appearing within normal limits. 2. The gated Cardiolite study reports an LVEF of 78%. This note was generated with [employer] software. It may contain incorrect words, spelling, and punctuation that were not noted in checking the note before signing.
== END ==
PROVIDERS: PCP Internal Medicine; Referring Provider Nurse Practitioner Family; Visit Provider Nurse Practitioner Family
DX: R06.02 Shortness of breath (principal); R06.00 Dyspnea, unspecified; I34.1 Nonrheumatic mitral (valve) prolapse; E11.65 Type 2 diabetes mellitus with hyperglycemia; E66.01 Morbid (severe) obesity due to excess calories; E78.5 Hyperlipidemia, unspecified; I10 Essential (primary) hypertension; Z79.4 Long term (current) use of insulin
CPT/HCPCS: 78452; 93017; A9500; A4216; J2785

== ENCOUNTER 2021-09-17 11:31 | Emergency (ER) | payer MEDICARE, SELFPAY ==
[2021-09-17 11:32] VITALS: PULSE 109; RESP 18; TEMP 36.3; O2SAT 96; BMI 42.3
[2021-09-17 11:36] VITALS: BP 113/80
--- NOTE | 2021-09-17 11:52 | CT_ITS ---
STUDY: CT SOFT TISSUE NECK WITHOUT CONTRAST REASON FOR EXAM: Female, 66 years old. Swelling of the throat following ingestion of Biotene. RADIATION DOSAGE (If Supplied By Facility): CTDIvol = ( 19.11 ) mGy, DLP = ( 1069.37 ) mGycm TECHNIQUE: The patient was scanned in a multi-detector CT scanner. High resolution transaxial imaging was performed without the administration of intravenous contrast material. Sagittal and coronal images were reconstructed. Individualized dose optimization techniques were used for this CT. COMPARISON: None. FINDINGS: Normal bilateral parotid glands. 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 Normal bilateral parapharyngeal spaces. Normal bilateral carotid spaces. Normal bilateral sublingual and submandibular glands and spaces. Normal visualized nasopharynx. Normal retropharyngeal space. Normal perivertebral space. Calcific deposits are seen in the bilateral faucil tonsils. The visualized tongue, tongue base and oropharynx are normal. There are minimally enlarged lymph nodes of the neck, with preservation of normal saad architecture, consistent with a reactive lymph hyperplasia. There is no demonstrated solid or cystic mass lesion. Normal epiglottis, bilateral vallecula and hypopharynx. The pre-epiglottic and paraglottic adipose spaces are normal. Normal visualized bilateral piriform sinuses, aryepiglottic folds, vocal cords, and arytenoid-cricoid articulations. Normal subglottic trachea. Normal bilateral lobes of the thyroid gland. Normal visualized pulmonary apices. Normal visualized paranasal sinuses. There is degenerative changes of the cervical spine. CT/Soft Tissue Neck without Contr IMPRESSION: Clusters of small calcifications are seen within the tonsils. This may be secondary to chronic tonsillitis. Electronically Signed: Bernardo Queen MD at 12:30 EST , Service support ,
--- NOTE | 2021-09-17 11:55 | EX.ED.DYSGE1 ---
HPI History of Present Illness Chief Complaint: Foreign Body Informant: patient and EMS Onset/Context/Timing Onset: Today (20 minutes ago) Context: Sudden Onset Timing: Continuous Quality: see below Location: throat Current Severity: Moderate Maximum Severity: Moderate Worsened by: nothing Relieved by: nothing Narrative Narrative: Patient states she had a dry mouth this morning so she sprayed some Biotene in her mouth, she states it is kind of a gel that she switched around for a minute and then when she went to swallow it she had sudden onset of symptoms that she has had intermittently for the past several months, for which she went to see Dr. Sofia with gastroenterology yesterday and is scheduled for an EGD; symptoms include shortness of breath and trouble swallowing because of a tickle sensation in her throat. She points to the middle of her throat. She denies any chest symptoms but states it is hard to get a breath then. She states she felt fine prior to swallowing; she did not feel like she inhaled anything accidentally or aspirated. She has been coughing and choking ever since then. [facility] Medical History Anxiety Bilateral leg edema Chronic fatigue syndrome CKD (chronic kidney disease), stage III Diabetes Fibromyalgia GERD (gastroesophageal reflux disease) Glaucoma Gout Health care maintenance High cholesterol History of thyroid nodule Hyperlipidemia Hypertension Insomnia Lyme disease Macular degeneration Morbid obesity Obesity BENTLEY on CPAP Osteoporosis Sensorineural hearing loss of both ears Type 2 diabetes mellitus Vitamin D deficiency Home Medications CPAP #1 ea 09/24/20 [History Last Taken Unknown] aspirin 81 mg tablet,delayed release 81 mg PO DAILY 09/24/20 [History Last Taken Unknown] blood pressure monitor #1 ea 09/24/20 [History Last Taken Unknown] blood sugar diagnostic #10 ea 09/24/20 [History Last Taken Unknown] blood-glucose meter #1 ea 09/24/20 [History Last Taken Unknown] lancets #100 ea 09/24/20 [History Last Taken Unknown] pen needle, diabetic 32 gauge x 1/4 #50 ea 09/24/20 [History Last Taken Unknown] vit C,E,zinc,Hn-esxvp-1-lutein-zeaxanthin 250 mg-2.5 mg-0.5 mg capsule 1 cap PO DAILY cap 09/24/20 [History Last Taken Unknown] simethicone 80 mg chewable tablet 80 mg PO 4X/DAY PRN #30 tab 11/26/20 [Rx Last Taken Unknown] latanoprost 0.005 % eye drops 1 drp OPHTHALMIC (EYE) DAILY 02/24/21 [History Last Taken Unknown] saliva substitute combo no.9 15 ml MUCOUS MEMBRANE BID-QID PRN #1000 ml 02/24/21 [Rx Last Taken Unknown] furosemide 20 mg tablet 40 mg PO DAILY #180 tab 03/31/21 [Rx Last Taken Unknown] pantoprazole 40 mg tablet,delayed release 40 mg PO DAILY #90 tab 05/06/21 [Rx Last Taken Unknown] Tresiba FlexTouch U-100 100 unit/mL (3 mL) subcutaneous pen 44 unit SC QHS #15 ml NS 05/18/21 [Rx Last Taken Unknown] ezetimibe 10 mg tablet 10 mg PO DAILY #90 tab 05/19/21 [Rx Last Taken Unknown] insulin lispro 100 unit/mL subcutaneous pen 12 unit SUBCUT TID #15 ml 05/19/21 [Rx Last Taken Unknown] lisinopril 10 mg tablet 10 mg PO DAILY #90 tab 05/19/21 [Rx Last Taken Unknown] ergocalciferol (vitamin D2) 1,250 mcg (50,000 unit) capsule 1,250 mcg PO .twice a week #24 cap 06/03/21 [Rx Last Taken Unknown] fluticasone propionate 50 mcg/actuation nasal spray,suspension 2 spray INTRANASAL DAILY #16 g 06/15/21 [Rx Last Taken Unknown] amitriptyline 100 mg tablet 100 mg PO QHS #90 tab 07/06/21 [Rx Last Taken Unknown] buspirone 10 mg tablet 10 mg PO TID #270 tab 07/06/21 [Rx Last Taken Unknown] folic acid 1 mg tablet 1 mg PO DAILY #30 tab 07/06/21 [Rx Last Taken Unknown] loratadine 10 mg tablet 10 mg PO DAILY #30 tab 07/06/21 [Rx Last Taken Unknown] alendronate 70 mg tablet 70 mg PO QWEEK #12 tab 08/17/21 [Rx Last Taken Unknown] famotidine 20 mg tablet 20 mg PO DAILY PRN #30 tab 08/17/21 [Rx Last Taken Unknown] Trulicity 4.5 mg/0.5 mL subcutaneous pen injector 4.5 mg SUBCUT QWEEK #2 ml NS 08/18/21 [Rx Last Taken Unknown] allopurinol 300 mg tablet 300 mg PO DAILY #90 tab 09/16/21 [Rx Last Taken Unknown] duloxetine 60 mg capsule,delayed release 120 mg PO DAILY #180 cap 09/16/21 [Rx Last Taken Unknown] sucralfate 100 mg/mL oral suspension 10 ml PO QAC #1000 ml 09/16/21 [Rx Last Taken Unknown] Allergy/AdvReac Type Severity Reaction Status Date / Time gemfibrozil AdvReac Unknown Myalgia Verified 09/17/21 11:32 Family History Brother Diabetes Mother Diabetes Heart disease Hypertension Grandmother Diabetes Sister Diabetes Heart disease Hypertension Thyroid disorder Father Kidney disease Grandfather Kidney disease Surgical History H/O: hysterectomy History of bilateral knee arthroplasty History of cholecystectomy Social History Smoking Status: Never smoker alcohol intake: never substance use type: does not use ROS ROS ED Constitutional Constitutional ED: Denies chills or fever(s) Eyes Eyes: Denies change in vision or diplopia ENT ENT ED: Reports as per HPI and other Details: Denies excessive secretions ; Denies rhinorrhea or sore throat Cardiovascular Cardiovascular: Denies chest pain or palpitations Respiratory/Chest Respiratory/Chest: Reports as per HPI, cough and dyspnea; Denies chest tightness, dyspnea on exertion or hemoptysis Gastrointestinal Gastrointestinal: Denies abdominal pain, diarrhea, nausea or vomiting Genitourinary Genitourinary ED: Denies dysuria or hematuria Musculoskeletal Musculoskeletal: Denies back pain or neck pain Integumentary Denies abscess or rash Neurologic Neurologic: Denies headache(s), paresthesias or weakness Psychiatric Psychiatric: Denies anxiety or suicidal thoughts EXAM Physical Exam Const Vital Signs: 09/17/21 11:32 09/17/21 11:36 09/17/21 12:51 Temperature 97.3 F L Temperature Source Temporal Pulse Rate 109 H 96 Respiratory Rate 18 16 Blood Pressure 113/80 116/66 Blood Pressure Mean 91 82 Pulse Ox 96 93 Oxygen Delivery Method Room Air Room Air 09/17/21 14:03 Temperature Temperature Source Pulse Rate 99 Respiratory Rate 18 Blood Pressure 109/70 Blood Pressure Mean 83 Pulse Ox 97 Oxygen Delivery Method Room Air Positive well nourished and well developed General Appearance ED: well developed and NAD HEENT Reports moist mucous membranes HEENT Narrative: With tongue depressor to assist visualization, posterior oropharynx appears symmetric and without abnormality, however visualization is limited by strong gag reflex. No stridor. Externally neck normal in appearance. normocephalic and atraumatic Eyes PERRL and EOMs intact bilaterally Neck full ROM and supple Resp normal respiratory effort and clear to auscultation bilaterally Cardio regular rate, regular rhythm and no murmurs GI non-tender and non-distended Auscultation: normoactive bowel sounds Palpation: soft Back/Spine no CVA tenderness General Back: other FROM Extremity normal to inspection General Extremety ED: Negative for edema, pulses abnormal or tenderness General Extremity: Negative for edema or pulses abnormal Neuro oriented x3, CN's II-XII intact bilaterally and no sensory deficits noted Sensorium / Orientation: awake and alert Motor Exam: strength 5/5 throughout Psych Psych Narrative: Anxious Skin no rashes or lesions noted and no wounds MDM MDM MDM Narrative Medical decision making narrative: I did a CT to rule out epiglottis abnormality, mass/asymmetry, or other explanation for the patient's discomfort that could be seen on imaging. The chronic findings of possible tonsilloliths were noted, I did not see them clinically however it was a limited eval, unknown if these are related to her symptoms or not. The patient was improving with observation and no specific treatment, we gave her some water to drink and she drink without any difficulty and when I reevaluated her, she was well-appearing without any apparent discomfort, unlike before, and agreed that she was feeling much better. I discussed her clinical symptoms and her exam with Dr. Ruiz with otolaryngology, he is not in the office today given the holiday, but would be happy to see the patient as an outpatient after the weekend. He also asked if the patient was recently recovering from Covid as they have seen some laryngospasm-type symptoms and recovered Covid patients some of which you have long Covid. She has been vaccinated but has never had Covid and did not have it recently. Radiography Diagnostic Testing: Clinical Impression(s) from Imaging Studies Soft Tissue Neck CT 09/17/21 11:52 IMPRESSION: Clusters of small calcifications are seen within the tonsils. This may be secondary to chronic tonsillitis. Electronically Signed: Bernardo Queen MD at 12:30 EST , Service support , Discharge Plan Triage Chief Complaint: Foreign Body ED Provider: Javan Luther Dx/Rx/DC Orders Clinical Impression: Throat discomfort, Laryngospasm Instructions: Understanding Dysphagia Prescriptions: No Action (DME) lancets [Accu-Chek Softclix Lancets] Misc See Rx Instructions .ROUTE .MEDSUPPLY Qty: 100 RF: 0 (DME) Accu-Chek Christi Plus test strp Strip See Rx Instructions .ROUTE .MEDSUPPLY Qty: 10 RF: 0 vit C,E,zinc,Rd-vjnrv-0-lutein-zeaxanthin 250 mg-2.5 mg-0.5 mg capsule 250-2.5-0.5 mg capsule 1 cap PO DAILY RF: 0 (DME) pen needle, diabetic [Novofine 32] 32 gauge x 1/4 needle See Rx Instructions .ROUTE .MEDSUPPLY Qty: 50 RF: 0 (DME) CPAP See Rx Instructions .Route .MEDSUPPLY Qty: 1 RF: 0 (DME) blood-glucose meter Misc See Rx Instructions .ROUTE .MEDSUPPLY Qty: 1 RF: 0 (DME) blood pressure monitor [Blood Pressure Kit] Kit See Rx Instructions .ROUTE .MEDSUPPLY Qty: 1 RF: 0 aspirin 81 mg tablet,delayed release (DR/EC) 81 mg PO DAILY RF: 0 latanoprost 0.005 % drops 1 drp ophthalmic (eye) DAILY RF: 0 Biotene Dry Mouth Oral Rinse Mouthwash 15 ml mucous membrane BID-QID PRN (Reason: dry mouth) Qty: 1000 RF: 2 Tresiba FlexTouch U-100 100 unit/mL (3 mL) insulin pen 44 unit SC QHS Qty: 15 RF: 6 Trulicity 4.5 mg/0.5 mL pen injector 4.5 mg subcut QWEEK Qty: 2 RF: 6 amitriptyline 100 mg tablet 100 mg PO QHS Qty: 90 RF: 1 folic acid 1 mg tablet 1 mg PO DAILY Qty: 30 RF: 3 loratadine 10 mg tablet 10 mg PO DAILY Qty: 30 RF: 3 buspirone 10 mg tablet 10 mg PO TID Qty: 270 RF: 1 sucralfate [Carafate] 100 mg/mL suspension 10 ml PO QAC Qty: 1000 RF: 0 simethicone 80 mg tablet,chewable 80 mg PO 4X/DAY PRN (Reason: Flatulence) Qty: 30 RF: 1 furosemide 20 mg tablet 40 mg PO DAILY Qty: 180 RF: 1 pantoprazole 40 mg tablet,delayed release (DR/EC) 40 mg PO DAILY Qty: 90 RF: 2 insulin lispro [Humalog KwikPen Insulin] 100 unit/mL insulin pen 12 unit subcut TID Qty: 15 RF: 6 lisinopril 10 mg tablet 10 mg PO DAILY Qty: 90 RF: 3 ezetimibe [Zetia] 10 mg tablet 10 mg PO DAILY Qty: 90 RF: 3 ergocalciferol (vitamin D2) 1,250 mcg (50,000 unit) capsule 1,250 mcg PO .twice a week Qty: 24 RF: 3 fluticasone propionate 50 mcg/actuation spray,suspension 2 spray INTRANASAL DAILY Qty: 16 RF: 0 alendronate 70 mg tablet 70 mg PO QWEEK Qty: 12 RF: 2 famotidine 20 mg tablet 20 mg PO DAILY PRN (Reason: gerd) Qty: 30 RF: 1 allopurinol 300 mg tablet 300 mg PO DAILY Qty: 90 RF: 1 duloxetine 60 mg capsule,delayed release(DR/EC) 120 mg PO DAILY Qty: 180 RF: 1 Primary Care Provider: Vamsi Epperson Referrals: Salvador Ruiz MD [STAFF PHYSICIAN] - (Call for appointment to be seen after the weekend) Vamsi Epperson MD [Primary Care Provider] - Disposition Disposition: Home, Self Care
[2021-09-17 12:51] VITALS: BP 116/66; PULSE 96; RESP 16; O2SAT 93
[2021-09-17 14:03] VITALS: BP 109/70; PULSE 99; RESP 18; O2SAT 97
[2021-09-17 14:44] VITALS: BP 101/70; PULSE 97; RESP 20; O2SAT 95
--- NOTE | 2021-09-17 14:44 | ED.RN ---
called hospital transportation to inquire about a ride home
== END 2021-09-17 14:50 | disposition home or self-care (01) ==
PROVIDERS: Emergency Provider Emergency Medicine; PCP Internal Medicine
DX: J38.5 Laryngeal spasm (principal); R09.89 Other specified symptoms and signs involving the circulatory and respiratory systems; I12.9 Hypertensive chronic kidney disease with stage 1 through stage 4 chronic kidney disease, or unspecified chronic kidney disease; N18.30 Chronic kidney disease, stage 3 unspecified; E11.22 Type 2 diabetes mellitus with diabetic chronic kidney disease; E66.01 Morbid (severe) obesity due to excess calories; E78.00 Pure hypercholesterolemia, unspecified; G47.33 Obstructive sleep apnea (adult) (pediatric); K21.9 Gastro-esophageal reflux disease without esophagitis; F41.9 Anxiety disorder, unspecified; E55.9 Vitamin D deficiency, unspecified; M81.0 Age-related osteoporosis without current pathological fracture; M10.9 Gout, unspecified; M79.7 Fibromyalgia; Z68.41 Body mass index [BMI] 40.0-44.9, adult; Z79.4 Long term (current) use of insulin; Z79.82 Long term (current) use of aspirin; Z79.899 Other long term (current) drug therapy
CPT/HCPCS: 70490; 99283

== ENCOUNTER → 2021-09-22 14:37 | Outpatient (CLI) | payer MEDICARE, SELFPAY ==
--- NOTE | 2021-09-22 14:38 | BI_ITS ---
MAMMOGRAPHY - BILATERAL SCREENING 3-D TOMOSYNTHESIS REASON FOR EXAM: Female, 66 years old. Breast cancer screening PERTINENT HISTORY: No significant family history. TECHNIQUE: 2-D mammograms and 3-D Tomosynthesis of the breast (s) were performed. CAD was performed. COMPARISON: 08/22/2017 FINDINGS: The breast composition is composed of scattered fibroglandular density. Scattered benign calcifications are seen. No dense spiculated masses or suspicious microcalcifications are identified. No architectural distortion is identified. There is no skin thickening or retraction. There has been no significant change since the prior study. BI/SCRN MAMM (CAD)W/MIKALA BILAT IMPRESSION: No mammographic signs of malignancy. Routine yearly mammograms recommended. ASSESSMENT CATEGORY: BIRADS Category 1: Negative. A letter regarding these results will be sent to the patient by the facility within 30 days. FOLLOW UP RECOMMENDATION: Yearly follow up mammogram recommended. (A) Approximately 10% of breast cancers are not detected by mammography. A normal mammogram should not delay biopsy of a clinically suspicious abnormality. Electronically Signed: Haja Tanner MD at 16:19 EST Tel , Service support ,
--- NOTE | 2021-09-22 14:42 | BD_ITS ---
STUDY: DUAL ENERGY X-RAY ABSORPTIOMETRY / DXA REASON FOR EXAM: Female, 66 years old. Patient is postmenopausal. TECHNIQUE: Bone Mineral Density (BMD) measurements of lumbar spine and bilateral hips were obtained. COMPARISON: None. FINDINGS: Lumbar Spine (L1-L4): g/cm2 (0.915) / T-score (-1.2) / Z-score (0.7) Findings are suggestive of osteopenia with a low fracture risk. Left Femur Total: g/cm2 (0.855) / T-score (-0.7) / Z-score (0.6) Left Femoral Neck: g/cm2 (0.564) / T-score (-2.6) / Z-score (-1.0) Right Femur Total: g/cm2 (0.838) / T-score (-0.9) / Z-score (0.5) Right Femoral Neck: g/cm2 (0.573) / T-score (-2.5) / Z-score (-0.9) BD/Dexa Bone Density Study IMPRESSION: The patient is considered osteoporotic as outlined below according to World Fidel Organization (WHO) criteria with a high fracture risk. Reference Information: The T-score is the number of standard deviations above or below the standard which is normal for young adults at their peak bone mineral density. The World Health Organization (WHO) interprets the T-scores as follows: Above -1 Normal bone density Between -1 and -2.5 Osteopenia Equal to / or below -2.5 Osteoporosis As a practical clinical guideline, osteopenia may be graded as follows: Mild -1 through -1.5 Moderate -1.6 through -2.0 Severe -2.1 through -2.4 The Z-score is the number of standard deviations above or below age-matched controls. A Z-score of less than -1.5 would be considered abnormal. References: 1. NIH Osteoporosis and Related Bone Diseases www osteo.org 2. International Society for Clinical Densitometry www iscd.org 3. National Osteoporosis Foundation www nof.org Electronically Signed: Bernardo Queen MD at 15:12 EST , Service support ,
== END ==
PROVIDERS: PCP Internal Medicine; Visit Provider Nurse Practitioner Family
DX: M81.0 Age-related osteoporosis without current pathological fracture (principal); Z12.31 Encounter for screening mammogram for malignant neoplasm of breast
CPT/HCPCS: 77063; 77067; 77080

== ENCOUNTER 2021-09-29 09:51 | Outpatient (CLI) | payer MEDICARE, SELFPAY ==
--- NOTE | 2021-09-29 09:53 | US_ITS ---
STUDY: ABDOMINAL ULTRASOUND - RIGHT UPPER QUADRANT REASON FOR VISIT: Female, 66 years old hepatosplenomegaly TECHNIQUE: Ultrasound evaluation of the right upper quadrant was performed with real-time and static monzon-scale imaging. TECHNICAL QUALITY: Adequate. COMPARISON: None. FINDINGS: Liver: The liver is slightly enlarged and measures 18.6 cm. There is increased echogenicity consistent with fatty infiltration. The bile ducts are within normal limits. There is hepatic color flow. The direction of portal flow is hepatopetal. There is no demonstrated mass lesion. Gallbladder: The patient is status post cholecystectomy. Common Bile Duct (C.B.D.): The common bile duct measures 3.4 mm. Pancreas: Normal size of the head, body and tail of the pancreas. There is increased echogenicity of the pancreas. There is no demonstrated pancreatic mass or cyst. Right Kidney: Normal size of the right kidney. The right kidney measures 10 cm x 5.9 cm x 4.6 cm. Normal renal cortex. The right cortex measures 1 cm. There is no demonstrated renal mass or cyst. There is no right hydronephrosis. IMPRESSION: Fatty infiltration of the liver. Electronically Signed: Bernardo Queen MD at 15:39 EST , Service support , STUDY: ABDOMINAL ULTRASOUND - ELASTOGRAPHY REASON FOR VISIT: Female, 66 years old. Hepatosplenomegaly. TECHNIQUE: Liver stiffness measurements were obtained on a GeoVario RS 85 ultrasound machine using a CA 1-7 probe following the SRU guidelines. 3 measurements were obtained using a 2-D-SWE method. TheIQR/M was 18% suggesting a quality data set. TECHNICAL QUALITY: Adequate. COMPARISON: Comparison is made with prior study done earlier in the day. FINDINGS: Liver: Fatty infiltration of the liver. Median liver stiffness measured 10 kPa. US/Abdomen Limited IMPRESSION: Liver stiffness measures 10 kPa compatible with F3 Metavir score. Electronically Signed: Bernardo Queen MD at 15:40 EST , Service support ,
== END 2021-09-29 23:59 | disposition short-term general hospital (02) ==
LOC: US 09:52
PROVIDERS: PCP Internal Medicine; Referring Provider Internal Medicine Gastroenterology; Visit Provider Internal Medicine Gastroenterology
DX: R16.2 Hepatomegaly with splenomegaly, not elsewhere classified (principal)
CPT/HCPCS: 76705; 76981

== ENCOUNTER 2021-10-14 09:54 | Day surgery (SDC) | payer MEDICARE, SELFPAY ==
[2021-10-14] VITALS (8 sets, daily range): BP systolic 80–106; BP diastolic 44–70; PULSE 88–97; RESP 14–17; TEMP 36.2; O2SAT 92–100; BMI 41.6
--- NOTE | 2021-10-14 | IMM_PTH ---
PATIENT: YVES NIÑO LOC: EN U#:[id number] AGE/SX: 66/F ROOM: RE10/14/[address]: Dr. Earle Sofia DO : 1955 BED: DIS: 10/14/2021 SPEC #: [id number] RECD: 10/15/21 14:39 STATUS: SOU[facility]urtis REQ #: [id number] RHYS: 10/14/21 00:[address]: Earle Sofia DEPT: IMMUNOHISTOCHEMISTRY RECD BY: Karlee Barnhart ENTERED: 10/15/21 14:40 SP TYPE: IMMUNO OTHR DR: Dr. Vamsi Epperson MD Tissues: Stomach, NOS Procedures: H Pylori (initial) PHYSICIAN & INSTITUTION [facility] [id number] SPECIMEN INFORMATION: Tissue Source: A ? Lesser curvature of stomach Clinical Info: GERD, dysphagia Specimen Number: [id number] CPT code: 87006 METHODOLOGY: Deparaffinized sections of prefer/formalin-fixed tissue or PAP/DQ stained slides are incubated with monoclonal/polyclonal antibodies/oligonucleotide probes. Localization is made via biotin free immunoperoxidase method. Appropriate controls are performed and reacted as expected. Results on target cell population are indicated in the following table: RESULTS: ANTIBODY / CLONE RESULT Block A H Pylori (polyclonal) negative These tests were developed and their performance characteristics determined by [facility]. They may not have been cleared or approved by the U.S. Food and Drug Administration. The FDA has determined that such clearance or approval is not necessary. INTERPRETATION: A. Lesser curvature of stomach, biopsy: Negative for Helicobacter pylori organisms. PARISA:vinita 10/19/2021
[2021-10-14 10:40] LABS: Bedside Glucose 86 mg/dL (70-110)
[2021-10-14] MEDS: Lactated Ringers 1,000 ML 15 ML IV (10:44)
--- NOTE | 2021-10-14 11:02 | HP.PCM_ITS ---
History and Physical Date of Admission: 10/14/21 66 F who presents to the office today for GERD symptoms including burning in her stomach extending into throat, abdominal bloating for a majority of the time and belching. Protonix and famotidine utilized without improvement. CT abd/pel performed 05/15/21 with findings of calcified right hilar lymph nodes, mild increased linear markings at lung bases suggestive of scarring. Abdominal aorta showed scattered atherosclerotic calcification. History of DM II and follows endocrinology with most recent A1c 6.1. History of osteoporosis with recommended DEXA scan in the future. Uses CPAP machine at home, she has not set up with pulmonology in the area yet for sleep apnea; would like a referral. Fibromyalgia, Lyme disease, gout, chronic fatigue, CKD III. Prior to moving to this area she was being seen by speech therapy for difficulty swallowing with choking without aspiration. Has not required Heimlich maneuver or ED presentation for bolus removal. Reports a procedure that indicated the lower part of her esophagus was/is red and inflamed. Feels that she is filled with air and belches routinely and her mouth and tongue will become sore. Denies pain/discomfort. Previously taking Pepcid, charcoal tablets, protonix and one other medication she can?t recall. These would help sometimes and not other times. Has attempted diet change to reduce gas. Sometimes symptoms improve and worsen spontaneously. ROS Const Constitutional: Positive for fatigue, headache(s) and weakness Eyes Eyes: Positive for blurry vision ENT ENT: Positive for hearing loss, nasal congestion, headache(s), difficulty swallowing, hoarseness and sore throat Resp Respiratory: Positive for cough Cardio Cardiology: Positive for shortness of breath Gastro GI: Positive for bloating, heartburn and difficulty swallowing Musc Musculoskeletal: Positive for abnormal gait, joint pain, back pain, muscle cramps, muscle weakness, numbness, stiffness, tingling, Arthritis, sciatica and leg pain at night Neuro Neurology: Positive for abnormal gait, weakness, headache(s), numbness and tingling Psych Psychiatric: Positive for anxiety and Positive for depression Endo Endocrine: Positive for fatigue Exam Const General: cooperative and comfortable Nutritional Appearance: average body habitus and well nourished HENMT Head: normal to inspection Ears: hearing grossly normal bilaterally Nose: external nose normal Face and sinus: normal facial exam Mouth: oral mucosae normal Throat: posterior oropharynx normal Eyes General: appearance normal, both eyes and all related structures Neck Neck: normal visual inspection Chest Chest palpation & inspection: normal inspection of the chest and normal palpation of entire chest wall Resp Effort & Inspection: normal respiratory effort Auscultation: Bilateral: Clear to Auscultation Cardio Palpation: normal PMI Rate: regular rate Rhythm: regular rhythm GI Inspection: normal to inspection Auscultation: normal bowel sounds Percussion: normal to percussion Palpation: no hepatosplenomegaly Skin General: no rashes or lesions noted Neuro General: patient alert Extrem General: normal to inspection Psych Affect: normal affect Quality Reporting Tobacco Screening ([facility] 138) Smoking Status: Never smoker Assessment and Plan Assessment and Plan (1) GERD (gastroesophageal reflux disease): Status: Acute Plan - Dr. Og Friend, DO: I suspect that some of her symptoms of GERD and bloating are coming from her BiPAP machine. That does not lead to a lot of bloating and abdominal discomfort. Also under diagnosis could be hiatal hernia. She did have a small wound that was seen on CT scan but there was not a dynamic study. (2) Dysphagia: Status: Acute Orders: Orders: EGD Today Elastography Parenchyma/Organ Today Plan - Dr. Og Friend, DO: She will undergo an upper endoscopy to evaluate her upper GI tract and. Diagnosis does include eosinophilic esophagitis, esophagitis, esophageal ring, esophageal web and also hiatal hernia. She was explained alternatives benefits indication arguably if accepts a perforated like to have EGD to have ASA 3. Plan Details Other Medications: New: sucralfate (Carafate) Take three times a day, one hour before meals on an empty stomach. 10 mL PO QAC 1,000 mL 0RF I have re-examined the patient. There are no clinical changes since date of exam.
--- NOTE | 2021-10-14 11:15 | EGD_PTH ---
PATIENT: YVES NIÑO LOC: EN U#:[id number] AGE/SX: 66/F ROOM: RE10/14/[address]: Dr. Earle Sofia DO : 1955 BED: DIS: 10/14/2021 SPEC #: [id number] RECD: 10/14/21 12:43 STATUS: JEF REQ #: [id number] RHYS: 10/14/21 11:[address]: Earle Sofia DEPT: SURGICAL PATHOLOGY RECD BY: Flori Card ENTERED: 10/14/21 13:16 SP TYPE: EGD BIOPSY OT DR: Dr. Vamsi Epperson MD Tissues: A - Stomach, NOS B - Esophagus, NOS Procedures: Special Stain Group II Surgery Specimen Level IV Alcian Blue/PAS (control) HEADER OPERATION: EGD ([facility]) with biopsy and dilation PRE-OP DIAGNOSIS: GERD, dysphagia TISSUE SUBMITTED: A ? Lesser curvature of stomach, biopsy, B ? Distal esophagus biopsy MICROSCOPIC DIAGNOSIS A. Lesser curvature of stomach, biopsy: Mild gastritis. See microscopic description and comment. B. Distal esophagus, biopsy: Fragments of gastric mucosa with chronic inflammation. Intestinal metaplasia (goblet cell metaplasia) not identified. See comment. SJ:rg 10/15/2021 COMMENT A. The results of immunohistochemistry for Helicobacter pylori will be reported separately ([id number]). B. Alcian blue/PAS stain with matched control is used in the evaluation of the specimen. MICROSCOPIC DESCRIPTION Slides are reviewed. A. The specimen shows fragments of gastric mucosa with chronic inflammatory cell infiltrates in the lamina propria consisting of lymphocytes and plasma cells, consistent with mild chronic gastritis. Mild mucosal congestion and hemorrhage are also noted. GROSS DESCRIPTION A - Received in fixative is one container labeled with the patient's name and designated lesser curvature of stomach biopsy. The specimen consists of three irregular fragments of light bella soft tissue that in aggregate measure 0.8 x 0.5 x 0.1 cm. The specimen is totally submitted in one cassette. B - Received in fixative is one container labeled with the patient's name and designated distal esophagus biopsy. The specimen consists of three irregular fragments of light bella soft tissue that in aggregate measure 0.8 x 0.3 x 0.1 cm. The specimen is totally submitted in one cassette. / PARISA:vinita 10/14/2021 TC:3 CPT: 92718 x2, 99637
--- NOTE | 2021-10-14 11:36 | OP.EGD_ITS ---
Patient Name: Shawnee Mohr Procedure Date: 10/14/2021 11:01 AM Date of : 1955 Age: 66 Procedure: Upper GI endoscopy Indications: Dysphagia, Heartburn Providers: Earle Sofia DO Medicines: See the Anesthesia note for documentation of the administered medications Patient Profile: This is a 66 year old female. Refer to note in patient chart for documentation of history and physical. Patient has symptoms of chronic dysphagia and dysphagia with both liquids and solids. Complications: No immediate complications. Procedure: Pre-Anesthesia Assessment: - Prior to the procedure, a History and Physical was performed, and patient medications and allergies were reviewed. The patient is competent. The risks and benefits of the procedure and the sedation options and risks were discussed with the patient. All questions were answered and informed consent was obtained. Patient identification and proposed procedure were verified by the physician in the pre-procedure area. Mental Status Examination: alert and oriented. Airway Examination: normal oropharyngeal airway and neck mobility. Respiratory Examination: clear to auscultation. CV Examination: normal. Prophylactic Antibiotics: The patient does not require prophylactic antibiotics. Prior Anticoagulants: The patient has taken no previous anticoagulant or antiplatelet agents. ASA Grade Assessment: II - A patient with mild systemic disease. After reviewing the risks and benefits, the patient was deemed in satisfactory condition to undergo the procedure. The anesthesia plan was to use moderate sedation / analgesia (conscious sedation). Immediately prior to administration of medications, the patient was re-assessed for adequacy to receive sedatives. The heart rate, respiratory rate, oxygen saturations, blood pressure, adequacy of pulmonary ventilation, and response to care were monitored throughout the procedure. The physical status of the patient was re-assessed after the procedure. After obtaining informed consent, the endoscope was passed under direct vision. Throughout the procedure, the patient's blood pressure, pulse, and oxygen saturations were monitored continuously. The Endoscope was introduced through the mouth, and advanced to the second part of duodenum. The upper GI endoscopy was accomplished without difficulty. The patient tolerated the procedure well. Moderate Sedation: Moderate (conscious) sedation was administered by the endoscopy nurse and supervised by the endoscopist. The following parameters were monitored: oxygen saturation, heart rate, blood pressure, respiratory rate, EKG, adequacy of pulmonary ventilation, and response to care. Total physician intraservice time was 15 minutes. Scope In: 11:17:13 AM Scope Out: 11:25:29 AM Total Procedure Duration Time 0 hours 8 minutes 16 seconds Findings: GERD findings were visualized including intra-arytenoid mucosal thickening (posterior laryngitis). LA Grade A (one or more mucosal breaks less than 5 mm, not extending between tops of 2 mucosal folds) esophagitis with no bleeding was found 34 to 35 cm from the incisors. Biopsies were taken with a cold forceps for histology. Verification of patient identification for the specimen was done. Estimated blood loss was minimal. One benign-appearing, intrinsic stenosis was found 34 to 38 cm from the incisors. This stenosis was moderately severe and measured 6 cm (in length). The stenosis was traversed. A guidewire was placed and the scope was withdrawn. Dilation was performed with a Savary dilator with no resistance at 54 Fr. The dilation site was examined following endoscope reinsertion and showed moderate improvement in luminal narrowing. Estimated blood loss was minimal. Localized mild inflammation characterized by congestion (edema) was found on the lesser curvature of the stomach. Biopsies were taken with a cold forceps for histology. Verification of patient identification for the specimen was done. Estimated blood loss was minimal. The second portion of the duodenum was normal. Impression: - Intra-arytenoid mucosal thickening was found. - LA Grade A reflux esophagitis. Biopsied. - Benign-appearing esophageal stenosis. Dilated. - Gastritis. Biopsied. - Normal second portion of the duodenum. Recommendation: - Discharge patient to home. - Full liquid diet today. - Continue present medications. - Await pathology results. - Return to my office. -Gastric emptying study Procedure Code(s): --- Professional --- 09960, Esophagogastroduodenoscopy, flexible, transoral; with insertion of guide wire followed by passage of dilator(s) through esophagus over guide wire 70946, 59, Esophagogastroduodenoscopy, flexible, transoral; with biopsy, single or multiple 74782, 59, Moderate sedation services provided by the same physician or other qualified health family day care worker performing the diagnostic or therapeutic service that the sedation supports, requiring the presence of an independent trained observer to assist in the monitoring of the patient's level of consciousness and physiological status; initial 15 minutes of intraservice time, patient age 5 years or older CPT copyright 2017 [employer]. All rights reserved. The codes documented in this report are preliminary and upon director of outside sales review may be revised to meet current compliance requirements. Earle Sofia DO 10/14/2021 11:36:33 AM This report has been signed electronically. Number of Addenda: 1 Note Initiated On: 10/14/2021 11:01 AM Addendum Number: 1 Addendum Date: 06/03/2022 6:18:33 AM MAC was used instead of moderate sedation for the patient. Earle Sofia DO 06/03/2022 6:18:37 AM This report has been signed electronically.
--- NOTE | 2021-10-14 11:37 | OP.CCLET_ITS ---
06/03/2022 Vamsi Epperson MD [address] [place] [address] [place] [address] Re : Upper GI endoscopy procedure for Shawnee Mohr Dear Dr. Epperson This procedure was performed on Thursday, October 14, 2021. My impressions and recommendations are as follows: Impressions : - Intra-arytenoid mucosal thickening was found. - LA Grade A reflux esophagitis. Biopsied. - Benign-appearing esophageal stenosis. Dilated. - Gastritis. Biopsied. - Normal second portion of the duodenum. Recommendations : - Discharge patient to home. - Full liquid diet today. - Continue present medications. - Await pathology results. - Return to my office. -Gastric emptying study My findings are described in the full procedure note, which is enclosed. If I can be of further assistance, please feel free to contact me at . Sincerely, Earle Friend, 10/14/2021 11:36:33 AM This report has been signed electronically.
== END 2021-10-14 23:59 | disposition home or self-care (01) ==
LOC: EN 09:58 → AC 09:58
PROVIDERS: PCP Internal Medicine; Referring Provider Internal Medicine; Visit Provider Internal Medicine Gastroenterology
PROC: 0DJ08ZZ Inspection of Upper Intestinal Tract, Via Natural or Artificial Opening Endoscopic (ICD-10-PCS; CPT 43235; principal; 2021-10-14 11:10)
DX: K29.70 Gastritis, unspecified, without bleeding (principal); E11.22 Type 2 diabetes mellitus with diabetic chronic kidney disease; E11.40 Type 2 diabetes mellitus with diabetic neuropathy, unspecified; E11.39 Type 2 diabetes mellitus with other diabetic ophthalmic complication; J84.10 Pulmonary fibrosis, unspecified; Z79.4 Long term (current) use of insulin; N18.30 Chronic kidney disease, stage 3 unspecified; K21.00 Gastro-esophageal reflux disease with esophagitis, without bleeding; K22.2 Esophageal obstruction; F41.9 Anxiety disorder, unspecified; F32.A Depression, unspecified; I12.9 Hypertensive chronic kidney disease with stage 1 through stage 4 chronic kidney disease, or unspecified chronic kidney disease; M79.7 Fibromyalgia; G43.909 Migraine, unspecified, not intractable, without status migrainosus; M10.9 Gout, unspecified; E78.00 Pure hypercholesterolemia, unspecified; H35.30 Unspecified macular degeneration; E66.9 Obesity, unspecified; M81.0 Age-related osteoporosis without current pathological fracture; E55.9 Vitamin D deficiency, unspecified; G47.33 Obstructive sleep apnea (adult) (pediatric); H42 Glaucoma in diseases classified elsewhere; Z86.72 Personal history of thrombophlebitis; G25.81 Restless legs syndrome; Z79.899 Other long term (current) drug therapy; Z79.82 Long term (current) use of aspirin
CPT/HCPCS: 43248; 43239; 82962; 88305; 88313; 88342; J7120; C1769; J2405

== ENCOUNTER 2021-12-10 10:38 | Outpatient (CLI) | payer MEDICARE, SELFPAY ==
[2021-12-10 12:47] LABS: ALB/GLOB Ratio 0.9 RATIO (0.9-2.4); AST(SGOT) 37 U/L (15-37); Alanine Aminotransfer ALT/SGPT 41 U/L (13-56); Albumin, Serum 3.4 g/dL (3.2-5.0); Alkaline Phosphatase 149 U/L (45-117); Anion Gap 7 (5-15); BUN 68 mg/dL (7-18); BUN/Creat Ratio 27.3 RATIO (10-20); Calcium,Total 9.9 mg/dL (8.5-10.1); Chloride 105 mmol/L (98-107); Cholesterol 207 mg/dL (200); Creatinine, Serum 2.49 mg/dL (0.55-1.02); EST Glomerular Filtration Rate 21 mL/min (>60); Est Glom Filt Rate - Afr Amer 25 mL/min (>60); Globulin 3.6 g/dL (2.2-4.2); Glucose 172 mg/dL (74-106); High Density Lipoprotein 34 mg/dL; Potassium 5.1 mmol/L (3.5-5.1); Sodium Level 135 mmol/L (136-145); Thyroid Stim Hormone (TSH) 4.34 uIU/mL (0.358-3.74); Triglycerides 424 mg/dL
== END 2021-12-10 23:59 | disposition home or self-care (01) ==
LOC: BIMLAB 10:39
PROVIDERS: PCP Internal Medicine; Referring Provider Nurse Practitioner Family; Visit Provider Nurse Practitioner Family
DX: E11.22 Type 2 diabetes mellitus with diabetic chronic kidney disease (principal); Z79.4 Long term (current) use of insulin; N18.32 Chronic kidney disease, stage 3b; I12.9 Hypertensive chronic kidney disease with stage 1 through stage 4 chronic kidney disease, or unspecified chronic kidney disease; F41.9 Anxiety disorder, unspecified
CPT/HCPCS: 36415; 80053; 80061; 82306; 84443

== ENCOUNTER 2021-12-15 10:22 | Outpatient (CLI) | payer MEDICARE, SELFPAY ==
--- NOTE | 2021-12-15 10:25 | RAD_ITS ---
STUDY: AP AND BILATERAL DECUBITUS ABDOMEN SERIES (5 VIEWS) OF 0946 HOURS ON 12/15/2021 REASON FOR EXAM: 66-year-old female with abdominal pain--evaluate for constipation. TECHNIQUE: A 5 view abdomen series was performed including bilateral decubitus views. COMPARISON: None. FINDINGS: The intestinal gas pattern is unremarkable. The findings of mild constipation. There is no evidence of abnormal intra-abdominal calcifications or collections of air. There is no evidence of free air. The patient''s had a previous cholecystectomy. There is no organomegaly. There is mild demineralization. There are mild osteophytic degenerative changes of the lower thoracic and lumbar spine. RAD/Abd Inc Decub and/or Erect IMPRESSION: 1. Mild constipation. 2. Otherwise, unremarkable intestinal gas pattern. 3. No abnormal intra-abdominal calcifications or collections of air, nor evidence of free air. 4. No abdominal organomegaly. 5. Previous cholecystectomy. Electronically Signed: Duarte Rose MD at 17:27 EDT ,
== END 2021-12-15 23:59 | disposition home or self-care (01) ==
LOC: RAD 10:24
PROVIDERS: PCP Internal Medicine; Referring Provider Internal Medicine Gastroenterology; Visit Provider Internal Medicine Gastroenterology
DX: K59.00 Constipation, unspecified (principal)
CPT/HCPCS: 74019

== ENCOUNTER → 2022-01-27 | Outpatient (CLI) | payer MEDICARE, SELFPAY ==
[2022-01-27 12:23] LABS: Hematocrit 36.9 % (37-47); Hemoglobin 11.6 g/dL (12.0-15.0); Mean Corp Hgb Conc 31.4 g/dL (32-36); Mean Corpuscular Hgb 31.4 pg (27.0-32.0); Mean Corpuscular Volume 99.7 fL (81-99); Mean Platelet Vol. 12.2 fl (6.2-12.0); Platelet Count 234 K/mm3 (150-450); RBC Distribution Width CV 14.6 % (11.6-14.6); RBC Distribution Width SD 53.7 fl (35.1-43.9); White Blood Count 11.7 K/mm3 (4.4-11.0)
[2022-01-27 12:51] LABS: ALB/GLOB Ratio 0.9 RATIO (0.9-2.4); AST(SGOT) 45 U/L (15-37); Alanine Aminotransfer ALT/SGPT 49 U/L (13-56); Albumin, Serum 3.6 g/dL (3.2-5.0); Alkaline Phosphatase 154 U/L (45-117); Anion Gap 5 (5-15); BUN 47 mg/dL (7-18); BUN/Creat Ratio 20.3 RATIO (10-20); Calcium,Total 11.4 mg/dL (8.5-10.1); Chloride 102 mmol/L (98-107); Creatinine, Serum 2.31 mg/dL (0.55-1.02); EST Glomerular Filtration Rate 22 mL/min (>60); Est Glom Filt Rate - Afr Amer 27 mL/min (>60); Globulin 4.1 g/dL (2.2-4.2); Glucose 96 mg/dL (74-106); Potassium 5.1 mmol/L (3.5-5.1); Protein, Total 7.7 g/dL (6.4-8.2); Sodium Level 133 mmol/L (136-145)
== END | disposition home or self-care (01) ==
LOC: BIMLAB 09:54
PROVIDERS: PCP Internal Medicine; Referring Provider Nurse Practitioner Family; Visit Provider Nurse Practitioner Family
DX: R60.0 Localized edema (principal); N18.4 Chronic kidney disease, stage 4 (severe); R42 Dizziness and giddiness
CPT/HCPCS: 36415; 80053; 85027

== ENCOUNTER → 2022-01-28 | Outpatient (CLI) | payer MEDICARE, SELFPAY ==
[2022-01-28 12:47] LABS: Vitamin D,25 Hydroxy 90.8 ng/mL
[2022-01-28 13:10] LABS: PTHIN 169.1 pg/mL (18.4-80.1)
== END | disposition home or self-care (01) ==
LOC: POLAB3 10:56
PROVIDERS: PCP Internal Medicine; Visit Provider Internal Medicine Nephrology
DX: E67.3 Hypervitaminosis D (principal); E21.0 Primary hyperparathyroidism
CPT/HCPCS: 36415; 82306; 83970

== ENCOUNTER → 2022-03-03 | Outpatient (CLI) | payer MEDICARE, SELFPAY ==
[2022-03-03 15:28] LABS: Albumin, Serum 3.4 g/dL (3.2-5.0); BUN 45 mg/dL (7-18); BUN/Creat Ratio 24.7 RATIO (10-20); Calcium,Total 10.4 mg/dL (8.5-10.1); Chloride 105 mmol/L (98-107); Creatinine, Serum 1.82 mg/dL (0.55-1.02); EST Glomerular Filtration Rate 29 mL/min (>60); Est Glom Filt Rate - Afr Amer 36 mL/min (>60); Glucose 121 mg/dL (74-106); Sodium Level 136 mmol/L (136-145)
[2022-03-03 15:36] LABS: T4 Free Direct 0.78 ng/dL (0.76-1.46); Thyroid Stim Hormone (TSH) 1.96 uIU/mL (0.358-3.74)
== END | disposition home or self-care (01) ==
LOC: BIMLAB 11:44
PROVIDERS: PCP Internal Medicine; Referring Provider Internal Medicine Nephrology; Visit Provider Internal Medicine Nephrology
DX: N17.9 Acute kidney failure, unspecified (principal); R94.6 Abnormal results of thyroid function studies; R79.89 Other specified abnormal findings of blood chemistry
CPT/HCPCS: 36415; 80069; 84439; 84443

== ENCOUNTER → 2022-04-02 | Outpatient (CLI) | payer MEDICARE, SELFPAY ==
--- NOTE | 2022-04-02 11:18 | NEURO_ITS ---
NCS and/or EMG Patient Report Ordering Doctor: Judah Mora DATE OF SERVICE: 04/02/22 Indication: Bilateral upper extremity pain and weakness. Intermittent nerve pain in both hands. History of diabetes mellitus. Evaluate for neurogenic causes of pain. Findings: Nerve conduction studies were performed in the right and left upper extremities. The right median motor study recording the abductor pollicis brevis showed a normal amplitude, prolonged distal latency and slowed conduction velocity. The right ulnar motor study recording the abductor digiti minimi showed a normal amplitude, normal distal latency and normal conduction velocity. No conduction block or focal slowing was present across the elbow. The right median sensory response recording digit two showed a borderline amplitude, prolonged latency and markedly slowed conduction velocity. The right ulnar sensory response recording digit five showed a borderline amplitude, normal latency and mildly slowed conduction velocity. The right radial sensory response recording over the extensor snuff box showed a borderline amplitude, normal latency and mildly slowed conduction velocity. The left median motor study recording the abductor pollicis brevis showed a normal amplitude, prolonged distal latency and normal conduction velocity. The left ulnar motor study recording the abductor digiti minimi showed a normal amplitude, normal distal latency and normal conduction velocity. No conduction block or focal slowing was present across the elbow. The left median sensory response recording digit two showed a borderline amplitude, prolonged latency and markedly slowed conduction velocity. The left ulnar sensory response recording digit five showed a borderline amplitude, normal latency and mildly slowed conduction velocity. The left radial sensory response recording over the extensor snuff box showed a borderline amplitude, normal latency and mildly slowed conduction velocity. Needle EMG of the right upper extremity and cervical paraspinal muscles was performed. No denervation was seen in any muscle. Motor units in the deltoid w ere slightly large amplitude and long duration with normal recruitment. Motor units in the biceps were slightly long duration and mildly polyphasic with normal recruitment. All motor unit morphology, activation and recruitment patterns were normal. Needle EMG of the left abductor pollicis brevis was performed. Sparse active denervation was seen. All motor unit morphology and activation were normal, but there was a slightly reduced recruitment pattern. Impression: This is an abnormal study. There is electrophysiologic evidence of median neuropathy across the wrist on both sides. The pathophysiology is demyelination though there is evidence of mild axonal loss on the right. These findings are compatible with the clinical diagnosis of carpal tunnel syndrome. In addition, there is electrophysiologic evidence suggestive of a superimposed, mild, left C5/6 radiculopathy. Finally, the diffusely low sensory amplitudes as well as the diffusely slow conduction velocities are suggestive of an underlying peripheral polyneuropathy. This will be evaluated further when the patient returns for examination of her lower extremities next week. Axel Linton D.O. Multi Select Codes Neurology Neurology Interp Codes: 21976-15 Musc tst done w/nerv tst kumar (interp) (59), 43065-98 Musc test done w/n test comp (interp) and 39264-86 Nrv cndj test 9-10 studies (interp)
== END | disposition home or self-care (01) ==
LOC: PSN 09:59
PROVIDERS: PCP Internal Medicine; Referring Provider Psychiatry & Neurology Neurology; Visit Provider Psychiatry & Neurology Neurology
DX: E11.43 Type 2 diabetes mellitus with diabetic autonomic (poly)neuropathy (principal); M54.12 Radiculopathy, cervical region; M79.7 Fibromyalgia
CPT/HCPCS: 95885; 95886; 95911

== ENCOUNTER → 2022-04-07 | Outpatient (CLI) | payer MEDICARE, SELFPAY ==
--- NOTE | 2022-04-07 14:46 | NEURO ---
NCS and/or EMG Patient Report Ordering Doctor: Judah Mora DATE OF SERVICE: 04/07/22 Shawnee presents for electrodiagnostic testing of the lower limbs. She reports numbness and tingling in both legs with frequent falls. Electrodiagnostic findings: Left peroneal motor nerve demonstrates prolonged distal latency with reduced amplitude and normal conduction velocity. Right peroneal motor nerve demonstrates decreased amplitude. Left tibial motor nerve demonstrates prolonged distal latency with reduced amplitude and reduced conduction velocity. Right tibial motor nerve demonstrates normal distal latency with reduced amplitude and reduced conduction velocity. Prolonged tibial F wave bilaterally. Prolonged H reflex bilaterally. Sensory responses were unobtainable. On needle EMG, motor units of increased amplitude and duration noted bilaterally in the tibialis anterior, peroneus longus and gastrocnemius. No denervation noted in lumbar paraspinals. Electrodiagnostic impression: This is an abnormal study in the lower limbs. 1. Electrodiagnostic findings consistent with peripheral polyneuropathy, with motor and sensory nerve involvement. There is evidence of axonal loss. 2. No electrodiagnostic evidence is noted for lumbosacral radiculopathy
== END | disposition home or self-care (01) ==
LOC: PSN 08:51
PROVIDERS: PCP Internal Medicine; Referring Provider Psychiatry & Neurology Neurology; Visit Provider Psychiatry & Neurology Neurology
DX: M79.7 Fibromyalgia (principal); G62.9 Polyneuropathy, unspecified
CPT/HCPCS: 95886; 95912

== ENCOUNTER 2022-06-02 15:07 | Emergency (ER) | payer MEDICARE, SELFPAY ==
[2022-06-02 15:08] VITALS: BP 146/119; PULSE 104; RESP 18; TEMP 36.6; O2SAT 98; BMI 44.4
--- NOTE | 2022-06-02 16:36 | RAD_ITS ---
STUDY: LEFT ELBOW X-RAY SERIES OF 1721 HOURS ON 06/02/2022 REASON FOR EXAM: 67-year-old female with trauma to the elbow TECHNIQUE: 3 view(s) of the elbow. COMPARISON: None. FINDINGS: Mild to moderate osteophytic degenerative changes anteriorly in the joint. No fractures or dislocations. No osseous lytic, sclerotic or mass lesions are present. Normal surrounding soft tissues. RAD/Elbow min 3 Views IMPRESSION: 1. No fractures or dislocations. 2. Mild osteophytic degenerative changes anteriorly in the left elbow joint. 3. Minimal surrounding soft tissues. Electronically Signed: Duarte Rose MD at 18:31 EDT ,
--- NOTE | 2022-06-02 16:54 | EDS_ITS ---
HPI HPI - Fall History of Present Illness Chief Complaint: Fall Informant: patient Narrative Narrative: Patient was holding up her who was falling. She felt fine. But she could not hold him up. She lowered him down but she kind of fell herself. She fell backwards hit her head on the ground. She hit her elbows. She has a slight headache but no neck pain. She does not think she lost consciousness but is not sure. Her states that he sure she was at least dazed and confused for a period of time but not sure how long. She is not on any anticoagulation. She has soreness in both elbows but no numbness tingling or weakness. She also feels that she has a slightly sore back on the right but only if she moves or twists. No lower extremity pain. [facility] Medical History Abnormal thyroid function test Anemia Anxiety Arthritis Back pain Bilateral leg edema Blackout Chronic neck and back pain CKD (chronic kidney disease), stage III CPAP (continuous positive airway pressure) dependence Diabetes Dietary restriction Difficulty balancing when standing Dizziness Fatigue Fibromyalgia Gastric reflux GERD (gastroesophageal reflux disease) Glaucoma Gout Health care maintenance High cholesterol History of echocardiogram History of pain when walking History of renal disease History of stress test History of thyroid nodule Hx of phlebitis Hyperlipidemia Hypertension Hypertension Insomnia Insulin dependent diabetes mellitus Leg cramps Limb weakness Liver disease Loss of hearing Lyme disease Macular degeneration Migraine headache Morbid obesity Non-smoker Obesity BENTLEY on CPAP Osteoporosis Restless legs Sensorineural hearing loss of both ears Shoulder pain Type 2 diabetes mellitus Vitamin D deficiency Wears glasses Home Medications CPAP #1 ea 09/24/20 [History Last Taken Unknown] aspirin 81 mg tablet,delayed release 81 mg PO DAILY 09/24/20 [History Last Taken Unknown] blood pressure monitor (Blood Pressure Kit) #1 ea 09/24/20 [History Last Taken Unknown] blood sugar diagnostic (Accu-Chek Christi Plus test strips) #10 ea 09/24/20 [History Last Taken Unknown] blood-glucose meter #1 ea 09/24/20 [History Last Taken Unknown] lancets (Accu-Chek Softclix Lancets) #100 ea 09/24/20 [History Last Taken Unknown] pen needle, diabetic 32 gauge x 1/4 (Novofine 32) #50 ea 09/24/20 [History Last Taken Unknown] vit C,E,zinc,Me-kuxnl-7-lutein-zeaxanthin 250 mg-2.5 mg-0.5 mg capsule 1 cap PO DAILY 09/24/20 [History Last Taken Unknown] latanoprost 0.005 % eye drops 1 drp ophthalmic (eye) DAILY 02/24/21 [History Last Taken Unknown] furosemide 20 mg tablet 40 mg PO DAILY #180 tabs 03/31/21 [Rx Last Taken Unknown] ezetimibe 10 mg tablet (Zetia) 10 mg PO DAILY #90 tabs 05/19/21 [Rx Last Taken Unknown] ergocalciferol (vitamin D2) 1,250 mcg (50,000 unit) capsule 1,250 mcg PO .twice a week #24 caps 06/03/21 [Rx Last Taken Unknown] fluticasone propionate 50 mcg/actuation nasal spray,suspension 2 spray intranasal DAILY #16 grams 06/15/21 [Rx Last Taken Unknown] alendronate 70 mg tablet 70 mg PO QWEEK #12 tabs 08/17/21 [Rx Last Taken Unknown] insulin lispro 100 unit/mL subcutaneous pen (Humalog KwikPen (U-100) Insulin) 12 unit (0.12 mL) subcut TID #15 mL 11/18/21 [Rx Last Taken Unknown] allopurinol 300 mg tablet 300 mg PO DAILY #90 tabs 12/07/21 [Rx Last Taken Unknown] simethicone 80 mg chewable tablet 80 mg PO 4X/DAY PRN Flatulence #30 tabs 12/07/21 [Rx Last Taken Unknown] duloxetine 60 mg capsule,delayed release 120 mg PO DAILY #180 caps 12/21/21 [Rx Last Taken Unknown] lisinopril 2.5 mg tablet 2.5 mg PO DAILY #90 tabs 01/27/22 [Rx Last Taken Unknown] amitriptyline 150 mg tablet 150 mg PO QHS #30 tabs 01/28/22 [Rx Last Taken Unknown] buspirone 10 mg tablet 10 mg PO TID #270 tabs 01/28/22 [Rx Last Taken Unknown] folic acid 1 mg tablet 1 mg PO DAILY #30 tabs 01/28/22 [Rx Last Taken Unknown] loratadine 10 mg tablet 10 mg PO DAILY #30 tabs 01/28/22 [Rx Last Taken Unknown] famotidine 40 mg tablet 40 mg PO DAILY #30 tabs 02/08/22 [Rx Last Taken Unknown] ursodiol 250 mg tablet 250 mg PO BID #60 tabs 02/08/22 [Rx Last Taken Unknown] vitamin E 268 mg (400 unit) capsule 800 unit PO DAILY #60 caps 02/08/22 [Rx Last Taken Unknown] insulin degludec 100 unit/mL (3 mL) subcutaneous pen (Tresiba FlexTouch U-100 insulin) 40 unit (0.4 mL) subcut QHS #36 mL 02/23/22 [Rx Last Taken Unknown] Trulicity 4.5 mg/0.5 mL subcutaneous pen injector (dulaglutide) 4.5 mg (0.5 mL) subcut QWEEK #2 mL 04/06/22 [Rx Last Taken Unknown] cyclobenzaprine 10 mg tablet 5 - 10 mg PO TID PRN muscle spasm #30 tabs 05/24/22 [Rx Last Taken Unknown] metoclopramide HCl 5 mg tablet 5 mg PO QAC #90 tabs 05/28/22 [Rx Last Taken Unknown] Allergy/AdvReac Type Severity Reaction Status Date / Time saliva substitute Allergy Angioedema Verified 06/02/22 15:12 combination no.9 [From [employer] PBF] [id number] Reductase Allergy muscle pain Verified 06/02/22 15:12 Inhibitor gemfibrozil AdvReac Unknown Myalgia Verified 06/02/22 15:12 Family History Brother Diabetes Mother Diabetes Heart disease Hypertension Grandmother Diabetes Sister Diabetes Heart disease Hypertension Thyroid disorder Father Kidney disease Grandfather Kidney disease Surgical History H/O: hysterectomy History of bilateral knee arthroplasty History of cholecystectomy Hx of colonoscopy Social History Smoking Status: Never smoker alcohol intake: never substance use type: does not use ROS ROS ED Constitutional Constitutional ED: Denies chills, fever(s) or subjective Eyes Eyes: Denies change in vision ENT ENT ED: Denies rhinorrhea or sore throat Cardiovascular Cardiovascular: Denies chest pain, palpitations or racing heartbeat Respiratory/Chest Respiratory/Chest: Denies cough or dyspnea Gastrointestinal Gastrointestinal: Denies nausea or vomiting Genitourinary Genitourinary ED: Denies dysuria, hematuria or urinary frequency Musculoskeletal Musculoskeletal: Reports arthralgias and back pain; Denies neck pain Integumentary Denies Abrasions or rash Neurologic Neurologic: Reports headache(s); Denies paresthesias or weakness Hematologic/Lymphatic Hematologic/Lymphatic: Denies easy bleeding or easy bruising Allergic/Immunologic Allergic/Immunologic ED: Denies urticaria EXAM Physical Exam Const Vital Signs: 06/02/22 15:08 06/02/22 16:28 Temperature 97.9 F Temperature Source Temporal Pulse Rate 104 H Respiratory Rate 18 Respiratory Effort Normal Non-Labored Blood Pressure 146/119 H Blood Pressure Mean 128 Pulse Ox 98 Oxygen Delivery Method Room Air Positive well nourished and well developed Constitutional Narrative: Patient is awake alert nontoxic General Appearance ED: well developed and NAD HEENT Reports normocephalic HEENT Narrative: I am not seeing external trauma at this time. No contusion abrasion or bleeding. But she does have tenderness over the occiput. No cervical tenderness Eyes PERRL and EOMs intact bilaterally Neck full ROM and no lymphadenopathy General: Negative for tenderness Chest Wall inspection of chest normal and palpation of chest normal Resp normal respiratory effort Auscultation: Negative for rales, rhonchi or wheezes Cardio regular rate and regular rhythm GI non-tender, non-distended and no masses Palpation: soft Back/Spine Back/Spine Narrative: Mild soreness of the right paraspinal area. No midline tenderness. No rib tenderness. Neuro oriented x3, no focal motor deficits and no sensory deficits noted Sensorium / Orientation: alert Psych mental status grossly normal Skin Lesions: no lesions Rashes: no rashes Trauma: Negative for abrasion or laceration MDM MDM MDM Narrative Medical decision making narrative: CT scan of head is normal. X-rays of both elbows are negative. Urinalysis shows no significant sign of blood. I think patient can go home. Tylenol rest and ice is appropriate. We discussed reasons to return. Lab Data Attestation: I reviewed the patient's lab results. Labs: Laboratory Results - last 24 hr 06/02/22 17:30 Urine Color Yellow Urine Clarity Clear Urine pH 5.0 Ur Specific [place] 1.015 Urine Protein 30 H Urine Glucose (UA) 50 H Urine Ketones Negative Urine Occult Blood 10 H Urine Nitrite Negative Urine Bilirubin Negative Urine Urobilinogen Normal Ur Leukocyte Esterase 500 H Urine RBC 0-5 SEEN Urine WBC 5-10 SEEN Ur Squamous Epith Cells 0-5 SEEN Urine Bacteria 0 SEEN Urine Mucus 0 SEEN Radiography Diagnostic Testing: Clinical Impression(s) from Imaging Studies Elbow X-Ray 06/02/22 16:36 IMPRESSION: 1. No fractures or dislocations. 2. Mild osteophytic degenerative changes anteriorly in the left elbow joint. 3. Minimal surrounding soft tissues. Electronically Signed: Duarte Rose MD at 18:31 EDT , Brain CT 06/02/22 17:02 IMPRESSION: 1. No intracranial pathology. 2. No subdural, epidural, or intracerebral hematoma, hemorrhage or contusions. 3. No infarcts or mass lesions. 4. Normal calvarium without fractures 5. Findings compatible with a chronic right maxillary and right ethmoid sinusitis. Electronically Signed: Duarte Rose MD at 18:14 EDT Reading Location ID and State: [place] / [place] Tel , Service support , Elbow X-Ray 06/02/22 17:09 IMPRESSION: 1. No fractures or dislocations. 2. Mild osteophytic degenerative changes of the right elbow. 3. Normal surrounding soft tissues. Electronically Signed: Duarte Rose MD at 18:28 EDT , Discharge Plan Triage Chief Complaint: Fall ED Provider: Tuan Glover Dx/Rx/DC Orders Clinical Impression: Fall from slip, trip, or stumble, Closed head injury, Contusion of elbow, left, Contusion of elbow, right Instructions: ED Contusion, Elbow, ED Head Injury (Adult) Prescriptions: No Action (DME) lancets [Accu-Chek Softclix Lancets] Misc See Rx Instructions .ROUTE .MEDSUPPLY Qty: 100 Rx Instructions: As directed, Test 4 times daily before meals and at bedtime (DME) Accu-Chek Christi Plus test strp Strip See Rx Instructions .ROUTE .MEDSUPPLY Qty: 10 Rx Instructions: As directed; Test 4 times daily before meals and at bedtime vit C,E,zinc,Ir-ksaca-0-lutein-zeaxanthin 250 mg-2.5 mg-0.5 mg capsule 250-2.5-0.5 mg capsule 1 cap PO DAILY (DME) pen needle, diabetic [Novofine 32] 32 gauge x 1/4 needle See Rx Instructions .ROUTE .MEDSUPPLY Qty: 50 Rx Instructions: As directed; 4x/day (DME) CPAP See Rx Instructions .Route .MEDSUPPLY Qty: 1 Rx Instructions: 14 cm H2O (DME) blood-glucose meter [facility] [place] [facility] See Rx Instructions .ROUTE .MEDSUPPLY Qty: 1 Rx Instructions: As directed (DME) blood pressure monitor [Blood Pressure Kit] Kit See Rx Instructions .ROUTE .MEDSUPPLY Qty: 1 Rx Instructions: As directed aspirin 81 mg tablet,delayed release (DR/EC) 81 mg PO DAILY latanoprost 0.005 % drops 1 drp ophthalmic (eye) DAILY folic acid 1 mg tablet 1 mg PO DAILY Qty: 30 3RF amitriptyline 150 mg tablet 150 mg PO QHS Qty: 30 4RF buspirone 10 mg tablet 10 mg PO TID Qty: 270 1RF loratadine 10 mg tablet 10 mg PO DAILY Qty: 30 3RF famotidine 40 mg tablet 40 mg PO DAILY Qty: 30 5RF ursodiol 250 mg tablet 250 mg PO BID Qty: 60 5RF vitamin E 400 unit capsule 800 unit PO DAILY Qty: 60 5RF lisinopril 2.5 mg tablet 2.5 mg PO DAILY Qty: 90 2RF furosemide 20 mg tablet 40 mg PO DAILY Qty: 180 1RF ezetimibe [Zetia] 10 mg tablet 10 mg PO DAILY Qty: 90 3RF ergocalciferol (vitamin D2) 1,250 mcg (50,000 unit) capsule 1,250 mcg PO .twice a week Qty: 24 3RF fluticasone propionate 50 mcg/actuation spray,suspension 2 spray INTRANASAL DAILY Qty: 16 0RF Rx Instructions: administer into each nostril alendronate 70 mg tablet 70 mg PO QWEEK Qty: 12 2RF insulin lispro [Humalog KwikPen Insulin] 100 unit/mL insulin pen 12 unit subcut TID Qty: 15 6RF Rx Instructions: 12u with meals, 6u with snacks. +SSI 180-210+2; 211-240+3; 241-300+5; >300 +7 MDD 50 allopurinol 300 mg tablet 300 mg PO DAILY Qty: 90 0RF simethicone 80 mg tablet,chewable 80 mg PO 4X/DAY PRN (Reason: Flatulence) Qty: 30 1RF duloxetine 60 mg capsule,delayed release(DR/EC) 120 mg PO DAILY Qty: 180 1RF Tresiba FlexTouch U-100 100 unit/mL (3 mL) insulin pen 40 unit SC QHS Qty: 36 1RF Trulicity 4.5 mg/0.5 mL pen injector 4.5 mg subcut QWEEK Qty: 2 4RF cyclobenzaprine 10 mg tablet 5 - 10 mg PO TID PRN (Reason: muscle spasm) Qty: 30 0RF metoclopramide HCl 5 mg tablet 5 mg PO QAC Qty: 90 2RF Primary Care Provider: Vamsi Epperson Referrals: Vamsi Epperson MD [Primary Care Provider] - 3-5 Days if not improving Disposition Disposition: Home, Self Care
--- NOTE | 2022-06-02 17:02 | CT_ITS ---
STUDY: CT OF THE HEAD WITHOUT CONTRAST ADMINISTRATION OF 1707 HOURS ON 06/02/2022 REASON FOR EXAM: 67-year-old female with head trauma. RADIATION DOSAGE (If Supplied By Facility): CTDIvol = ( 44.99 ) mGy, DLP = ( 812.98 ) mGycm. TECHNIQUE: Transaxial CT imaging of the brain was performed without administration of intravenous contrast material. COMPARISON: No relevant priors. FINDINGS: Normal ventricular system amount of midline shift. No subdural, epidural, or intracerebral hematoma, hemorrhage or contusion. No infarcts or mass lesions. Normal sella and pituitary. Normal posterior fossa and brainstem. Normal calvarium without linear or depressed skull fractures. Complete opacification right maxillary sinus and opacification of the anterior right ethmoid sinus--findings compatible with a chronic right maxillary and right ethmoid sinusitis. CT/Brain/Head without Contrast IMPRESSION: 1. No intracranial pathology. 2. No subdural, epidural, or intracerebral hematoma, hemorrhage or contusions. 3. No infarcts or mass lesions. 4. Normal calvarium without fractures 5. Findings compatible with a chronic right maxillary and right ethmoid sinusitis. Electronically Signed: Duarte Rose MD at 18:14 EDT ,
--- NOTE | 2022-06-02 17:09 | RAD_ITS ---
STUDY: RIGHT ELBOW X-RAY SERIES OF 1715 HOURS ON 06/02/2022 REASON FOR EXAM: 67-year-old female with trauma to right elbow. TECHNIQUE: 3 view(s) of the elbow. COMPARISON: None. FINDINGS: No fractures or dislocations. Mild osteophytic degenerative changes of the elbow joint. No osseous lytic, sclerotic or mass lesions are evident. The surrounding soft tissues are normal. RAD/Elbow min 3 Views IMPRESSION: 1. No fractures or dislocations. 2. Mild osteophytic degenerative changes of the right elbow. 3. Normal surrounding soft tissues. Electronically Signed: Duarte Rose MD at 18:28 EDT ,
[2022-06-02 17:41] LABS: Bacteria 0 SEEN /hpf (None Seen); Mucous, Urine 0 SEEN /hpf (<or=2+)
[2022-06-02 17:44] LABS: Color, Urine Yellow (Yellow); Glucose, Dipstick 50 mg/dl (Normal); Ketone-Dipstick Negative (Negative); Leukocyte Esterase-Dipstick 500 /ul (Negative); Nitrite-Dipstick Negative (Negative); Occult Blood-Urine 10 /ul (Negative); Protein-Dipstick 30 mg/dl (Negative); Specific Gravity, Urine 1.015 (1.002-1.030); Urine Bilirubin Dipstick Negative (Negative); Urine Clarity Clear (Clear); Urine Urobilinogen Normal (Normal)
[2022-06-02 18:17] LABS: Squamous Epithelial Cells - UA 0-5 SEEN /hpf (5-10); White Blood Cells 5-10 SEEN /hpf (0-5)
[2022-06-02 18:18] LABS: Red Blood Cells-Urine 0-5 SEEN /hpf (0-5)
== END 2022-06-02 18:52 | disposition home or self-care (01) ==
PROVIDERS: Emergency Provider Emergency Medicine; PCP Internal Medicine; Visit Provider Emergency Medicine
DX: S09.8XXA Other specified injuries of head, initial encounter (principal); E11.22 Type 2 diabetes mellitus with diabetic chronic kidney disease; Z79.4 Long term (current) use of insulin; N18.30 Chronic kidney disease, stage 3 unspecified; E78.5 Hyperlipidemia, unspecified; R41.0 Disorientation, unspecified; I12.9 Hypertensive chronic kidney disease with stage 1 through stage 4 chronic kidney disease, or unspecified chronic kidney disease; S50.01XA Contusion of right elbow, initial encounter; S50.02XA Contusion of left elbow, initial encounter; Z79.82 Long term (current) use of aspirin; W01.10XA Fall on same level from slipping, tripping and stumbling with subsequent striking against unspecified object, initial encounter
CPT/HCPCS: 70450; 73080; 81001; 99282

== ENCOUNTER → 2022-06-03 | Outpatient (CLI) | payer MEDICARE, SELFPAY ==
[2022-06-03 16:56] LABS: Vitamin D,25 Hydroxy 19.4 ng/mL
== END | disposition home or self-care (01) ==
LOC: BIMLAB 15:18
PROVIDERS: PCP Internal Medicine; Referring Provider Internal Medicine; Visit Provider Internal Medicine
DX: M81.0 Age-related osteoporosis without current pathological fracture (principal)
CPT/HCPCS: 36415; 82306

== ENCOUNTER → 2022-06-07 | Outpatient (CLI) | payer MEDICARE, SELFPAY ==
[2022-06-07 17:49] LABS: Absolute Lymphocyte Count 1.93 X10^3/uL (0.83-4.51); Absolute Neutrophil Count 3.9 X10^3/uL (2.0-7.7); Basophil# 0.02 X10^3/uL; Basophil% 0.3 % (0-1); Eosinophils% 14.4 % (0-5); Hematocrit 39.1 % (37-47); Hemoglobin 12.4 g/dL (12.0-15.0); Lymphocyte # 1.93 X10^3/ul (0.83-4.51); Lymphocyte % 25.3 % (19-41); Mean Corp Hgb Conc 31.7 g/dL (32-36); Mean Corpuscular Hgb 29.9 pg (27.0-32.0); Mean Corpuscular Volume 94.2 fL (81-99); Mean Platelet Vol. 11.8 fl (6.2-12.0); Monocyte% 7.9 % (0-10); NRBC Flagged by Analyzer 0 % (0-5); Neutrophil # 3.94 X10^3/uL (2.7-7.7); Neutrophil % 51.7 % (47-70); Platelet Count 195 K/mm3 (150-450); RBC Distribution Width CV 13.4 % (11.6-14.6); RBC Distribution Width SD 46.8 fl (35.1-43.9); Red Blood Count 4.15 M/mm3 (4.2-5.4); White Blood Count 7.6 K/mm3 (4.4-11.0)
[2022-06-07 18:09] LABS: Erythrocyte Sedimentation Rate 40 mm/hr (0-30)
[2022-06-07 18:17] LABS: ALB/GLOB Ratio 0.8 RATIO (0.9-2.4); AST(SGOT) 39 U/L (15-37); Alanine Aminotransfer ALT/SGPT 38 U/L (13-56); Albumin, Serum 3.3 g/dL (3.2-5.0); Alkaline Phosphatase 159 U/L (45-117); Anion Gap 8 (5-15); BUN 29 mg/dL (7-18); CPK Total, Creatine Kinase 794 U/L (26-192); CRP 8.81 mg/L (0.0-3.0); Calcium,Total 9.8 mg/dL (8.5-10.1); Chloride 106 mmol/L (98-107); Creatinine, Serum 1.61 mg/dL (0.55-1.02); EST Glomerular Filtration Rate 34 mL/min (>60); Est Glom Filt Rate - Afr Amer 41 mL/min (>60); Globulin 4.1 g/dL (2.2-4.2); Glucose 122 mg/dL (74-106); Potassium 4.4 mmol/L (3.5-5.1); Protein, Total 7.4 g/dL (6.4-8.2); Sodium Level 139 mmol/L (136-145)
[2022-06-09 17:07] LABS: Aldolase 11.4 U/L (3.3-10.3)
[2022-06-10 11:03] LABS: Myoglobin, Serum 735 ng/mL (25-58)
== END | disposition home or self-care (01) ==
LOC: MTLAB 15:11
PROVIDERS: PCP Internal Medicine; Referring Provider Psychiatry & Neurology Neurology; Visit Provider Psychiatry & Neurology Neurology
DX: G72.9 Myopathy, unspecified (principal); I10 Essential (primary) hypertension
CPT/HCPCS: 36415; 80053; 82085; 82550; 83874; 85025; 85652; 86140

== ENCOUNTER → 2022-07-30 | Day surgery (SDC) | payer MEDICARE, SELFPAY ==
[2022-07-30] MEDS: Lidocaine Jelly 2% 20 ML Syringe (URO-JET) 1 APPLIC (09:00)
[2022-07-30 09:06] VITALS: BP 153/87; PULSE 98; RESP 16; TEMP 36.2; O2SAT 99
== END | disposition home or self-care (01) ==
PROVIDERS: PCP Internal Medicine; Referring Provider Internal Medicine; Visit Provider Internal Medicine Gastroenterology
PROC: F00ZJWZ Instrumental Swallowing and Oral Function Assessment using Swallowing Equipment (ICD-10-PCS; CPT 43235; principal; 2022-07-30 07:55)
DX: Z53.8 Procedure and treatment not carried out for other reasons (principal)
CPT/HCPCS: 91010

== ENCOUNTER 2022-09-07 11:43 | Day surgery (SDC) | payer MEDICARE, SELFPAY ==
[2022-09-07] VITALS (7 sets, daily range): BP systolic 109–131; BP diastolic 72–94; PULSE 76–91; RESP 16–18; TEMP 36.4–36.9; O2SAT 94–99; BMI 43.2
--- NOTE | 2022-09-07 | IMM_PTH ---
PATIENT: YVES NIÑO LOC: EN U#:[id number] AGE/SX: 67/F ROOM: RE09/07/[address]: Dr. Earle Sofia DO : 1955 BED: DIS: 09/07/2022 SPEC #: [id number] RECD: 09/10/22 07:38 STATUS: JEF REQ #: [id number] RHYS: 09/07/22 00:[address]: Earle Sofia DEPT: IMMUNOHISTOCHEMISTRY RECD BY: Karlee Barnhart ENTERED: 09/10/22 07:39 SP TYPE: IMMUNO OTHR DR: Dr. Vamsi Epperson MD Tissues: Esophagus, NOS Procedures: P53 (initial) KI-67 (add) PHYSICIAN & INSTITUTION [place] [id number] SPECIMEN INFORMATION: Tissue Source: Esophagus Clinical Info: Regurgitation Specimen Number: [id number] CPT code: 61432, 09829 METHODOLOGY: Deparaffinized sections of prefer/formalin-fixed tissue or PAP/DQ stained slides are incubated with monoclonal/polyclonal antibodies/oligonucleotide probes. Localization is made via biotin free immunoperoxidase method. Appropriate controls are performed and reacted as expected. Results on target cell population are indicated in the following table: RESULTS: ANTIBODY / CLONE RESULT P53 (DO-7) negative Ki-67 (30-9) positive, very low These tests were developed and their performance characteristics determined by [facility]. They may not have been cleared or approved by the U.S. Food and Drug Administration. The FDA has determined that such clearance or approval is not necessary. The above immunohistochemical/dualISH markers are ordered and reviewed by the Pathologist. INTERPRETATION: Esophagus, random biopsy: Negative for dysplasia. PARISA:vinita 09/10/2022
--- NOTE | 2022-09-07 11:49 | PCM.HP.BLA ---
History and Physical Date of Admission: 09/07/22 YVES NIÑO, is a 67 F who presents to the office today for 2 month f/u dysphagia, GERD, constipation, NAFLD. Her main concern is ongoing reflux of stomach contents; she reports this began yrs ago, no better with any treatments so far. Currently taking famotidine and metoclopramide, no improvement with either. No PPI due to CKD. The reflux doesn't seem acidic. It is typically the food she has just eaten. No feeling of food sticking on the way down. Reflux and regurgitation every day. She eats very carefully, small bite followed by liquid. Reports stomach pressure, pushes everything up all the way to her sinuses, can have stomach contents come out her nose then. She had swallowing therapy in [place] over a year ago before moving here, didn't help. Lots of belching. Denies abdominal bloating. Can have surprise flatus. Constipation better, having BM 2x per wk. Mouth is dry when she awakes. She uses CPAP w/ humidification. Tongue is red in morning. Has been tried on charcoal, simethicone, PPI w/o relief. Dilation of esophageal stenosis in 09/[address] Sofia has recommended repeat endoscopy in the future to and have a Hopper study in order to quantify how much the pH of her acid in her esophagus that may be contributing to her symptoms. She is frustrated with long hx of elevated CK, myoglobin w/o known cause. NAFLD -- Nonalcoholic steatohepatitis secondary to diabetes mellitus, obesity and metabolic syndrome.? Her fibrosis score is an F2 to F3.? It is closer to F3 to an F2.? She is on ursodiol, vitamin E and we considered a statin.? However she is allergic to statins.? We had wanted to introduce niacin but she cannot tolerate the side effects.? We encourage weight loss.? Myopathy may be contributing to MERCER diagnosis as studies have shown this inflammation affects kidneys and the liver. US abdomen 09.29.21 found liver measurement 18.6 cm with fatty infiltration. Increased echogenicity of the pancreas. Liver stiffness 10 kPa compatible with F3 Metavir Score. EGD performed 10.14.21 finding intra-arytenoid mucosal thickening; LA Grade A reflux esophagitis; benign-appearing esophageal stenosis, dilated to 54 Tunisian; gastritis. ROS Const Constitutional: Positive for fatigue, frequent falls, headache(s) and weakness ENT ENT: Positive for headache(s) and difficulty swallowing Gastro GI: Positive for bloating, difficulty swallowing and excessive flatus; No abdominal pain, belching, change in bowel habits, change in stool character, coffee ground emesis, constipation, cramping, diarrhea, heartburn, feeling full early, incontinent of stools, Vomiting blood/hematemesis, Blood in stool, loose stools, Black,tarry stools, nausea/dyspepsia, pain with swallowing, vomiting or other Musc Musculoskeletal: Positive for abnormal gait, joint pain, back pain, joint swelling, muscle weakness, numbness, stiffness, tingling, Arthritis and sciatica Skin Skin: No yellowing of the eye or itchy eyes Neuro Neurology: Positive for abnormal gait, weakness, frequent falls, headache(s), numbness and tingling Psych Psychiatric: Positive for anxiety, Positive for depression and Positive for obsessions/compulsions Endo Endocrine: Positive for fatigue Aller/Imm Allergy/Immunologic: No itchy eyes Brandon/Lymp Hematologic/Lymphatic: No easy bleeding or easy bruising Exam Const General: cooperative, comfortable and no acute distress Nutritional Appearance: obese Orientation: alert, awake and oriented x3 GI Inspection: obesity Palpation: soft Quality Reporting Tobacco Screening ([facility] 138) Smoking Status: Never smoker Assessment and Plan Assessment and Plan (1) Regurgitation of food: ?Status:?Acute ?Plan: 67 yr old female with chronic reflux and regurgitation. We will schedule her for EGD with Hopper pH. We will also get esophageal manometry. Continue famotidine Consider d/c reglan, consider gastric emptying study f/u after endoscopy I have examined the patient and the H&P has been reviewed. There are no clinical changes since date of exam.
[2022-09-07] MEDS: Lactated Ringers 1,000 ML 15 ML IV (12:50)
[2022-09-07 13:10] LABS: Bedside Glucose 102 mg/dL (74-106)
--- NOTE | 2022-09-07 13:30 | EGD_PTH ---
PATIENT: YVES NIÑO LOC: [facility] U#:[id number] AGE/SX: 67/F ROOM: RE09/07/[address]: Dr. Earle Sofia DO : 1955 BED: DIS: 09/07/2022 SPEC #: [id number] RECD: 09/07/22 15:43 STATUS: JEF REBlayne #: [id number] RHYS: 09/07/22 13:[address]: Earle Sofia DEPT: SURGICAL PATHOLOGY RECD BY: Benigno Siegel ENTERED: 09/08/22 10:11 SP TYPE: EGD BIOPSY MCKAY DR: Dr. Vamsi Epperson MD Tissues: Esophagus, NOS Procedures: Special Stain Group II Surgery Specimen Level IV Alcian Blue/PAS (control) HEADER OPERATION: EGD ? 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 Moderate chronic inflammation. Negative for dysplasia. See comment. PARISA:vinita 09/09/2022 COMMENT Alcian blue/PAS stain with matched control is used in the evaluation of the specimen. Immunohistochemistry ([id number]) for P53 and Ki-67 will be performed and results will be reported separately. MICROSCOPIC DESCRIPTION Slides are reviewed. GROSS DESCRIPTION Received in fixative is one container labeled with the patient's name and designated random esophagus. The specimen consists of multiple irregular fragments of light bella soft tissue that in aggregate measure 1 x 0.2 x 0.1 cm. The specimen is totally submitted in one cassette. / AM:vinita 09/08/2022 TC:3 CPT: 82492, 18361
--- NOTE | 2022-09-07 14:01 | OP.EGD_ITS ---
Patient Name: Shawnee Mohr Procedure Date: 09/07/2022 1:34 PM Date of : 1955 Age: 67 Procedure: Upper GI endoscopy Indications: Heartburn, Failure to respond to medical treatment Providers: Earle Sofia DO Referring MD: Vamsi Epperson MD Medicines: Monitored Anesthesia Care Patient Profile: This is a 67 year old female. Refer to note in patient chart for documentation of history and physical. Patient has symptoms of chronic chest pain, chronic cough and chronic heartburn. Complications: No immediate complications. Procedure: Pre-Anesthesia Assessment: - Prior to the procedure, a History and Physical was performed, and patient medications and allergies were reviewed. The risks and benefits of the procedure and the sedation options and risks were discussed with the patient. All questions were answered and informed consent was obtained. Patient identification and proposed procedure were verified by the physician. Mental Status Examination: normal. Prophylactic Antibiotics: The patient does not require prophylactic antibiotics. Prior Anticoagulants: The patient has taken no previous anticoagulant or antiplatelet agents. After reviewing the risks and benefits, the patient was deemed in satisfactory condition to undergo the procedure. The anesthesia plan was to use monitored anesthesia care (MAC). Immediately prior to administration of medications, the patient was re-assessed for adequacy to receive sedatives. The heart rate, respiratory rate, oxygen saturations, blood pressure, adequacy of pulmonary ventilation, and response to care were monitored throughout the procedure. The physical status of the patient was re-assessed after the procedure. After obtaining informed consent, the endoscope was passed under direct vision. Throughout the procedure, the patient's blood pressure, pulse, and oxygen saturations were monitored continuously. The gastroscope was introduced through the mouth, and advanced to the second part of duodenum. The upper GI endoscopy was accomplished without difficulty. The patient tolerated the procedure well. Scope In: 1:46:18 PM Scope Out: 1:52:16 PM Total Procedure Duration Time 0 hours 5 minutes 58 seconds Findings: Mucosal changes including ringed esophagus and small-caliber esophagus were found in the middle third of the esophagus and in the lower third of the esophagus. Biopsies were obtained from the proximal and distal esophagus with cold forceps for histology of suspected eosinophilic esophagitis. Verification of patient identification for the specimen was done. Estimated blood loss was minimal. The MCLEAN capsule with delivery system was introduced through the mouth and advanced into the esophagus, such that the MCLEAN pH capsule was positioned 40 cm from the incisors, which was 6 cm proximal to the GE junction. Suction was applied to the well of the MCLEAN pH capsule to suck in the adjacent mucosa of the esophagus using the external vacuum pump set at a minimum vacuum pressure of 550 mmHg for 30 seconds. The MCLEAN pH capsule was then deployed by depressing the plunger on top of the handle to advance the locking pin into the mucosa, thereby attaching the capsule to the esophagus. The plunger was then rotated a quarter turn clockwise to release the capsule from the delivery system. The delivery system was then withdrawn. Endoscopy was utilized for probe placement and diagnostic evaluation. Diffuse atrophic mucosa was found in the entire examined stomach. The second portion of the duodenum was normal. Impression: - Esophageal mucosal changes suggestive of eosinophilic esophagitis. Biopsied. - Gastric mucosal atrophy. - Normal second portion of the duodenum. - The MCLEAN pH capsule was positioned 40 cm from the incisors, which was 6 cm proximal to the GE junction. Recommendation: - Discharge patient to home. - Resume previous diet. - Continue present medications. - Await pathology results. - Repeat upper endoscopy in 1 year for surveillance based on pathology results. Procedure Code(s): --- Professional --- 55791, Esophagogastroduodenoscopy, flexible, transoral; with biopsy, single or multiple CPT copyright 2017 [employer]. All rights reserved. The codes documented in this report are preliminary and upon incident response coordinator review may be revised to meet current compliance requirements. Earle Sofia DO 09/07/2022 2:00:48 PM This report has been signed electronically. Number of Addenda: 0 Note Initiated On: 09/07/2022 1:34 PM
--- NOTE | 2022-09-07 14:02 | OP.CCLET_ITS ---
09/07/2022 Vamsi Epperson MD [address] [place] [address] [place] [address] Re : Upper GI endoscopy procedure for Shawnee Mohr Dear Dr. Epperson This procedure was performed on Wednesday, September 07, 2022. My impressions and recommendations are as follows: Impressions : - Esophageal mucosal changes suggestive of eosinophilic esophagitis. Biopsied. - Gastric mucosal atrophy. - Normal second portion of the duodenum. - The MCLEAN pH capsule was positioned 40 cm from the incisors, which was 6 cm proximal to the GE junction. Recommendations : - Discharge patient to home. - Resume previous diet. - Continue present medications. - Await pathology results. - Repeat upper endoscopy in 1 year for surveillance based on pathology results. My findings are described in the full procedure note, which is enclosed. If I can be of further assistance, please feel free to contact me at . Sincerely, Earle Friend, 09/07/2022 2:00:48 PM This report has been signed electronically.
--- NOTE | 2022-09-23 13:51 | HP.PCM_ITS ---
History and Physical Date of Admission: 09/07/22 Study: 48-hour?Hopper?pH capsule was placed on esophagus during EGD on 09/07/22 Study Findings?? ? 48-hour overview: no significant acid exposures ? Using data from the worst of the two days, acid exposure time is 1.7%.?Percent acid exposure time?is the single parameter which has been shown to best correlate with endoscopic damage. Normal is <4.4% on the worst day, therefore this result is?normal.? ? The?DeMeester Score?(normal is <14.72) on the worst of the two days is 6.9 which is?normal.?The DeMeester Score is a method of adding weights to six common pH me asurement parameters, and presenting esophageal acid exposure data as a cumulative score.? ? Symptom Index (SI)?>50% is significant (it indicates that >50% of the observed symptoms were associated with reflux).? In this study, the SI is 0% which is not significant. ? Symptom Association Probability (SAP)?helps to determine if there is a true correlation between symptoms and reflux. SAP >95% indicates a likely correlation.? In this study, the SAP is 0% which does not indicate a true correlation.? ? Interpretation ? Normal result Charges/Coding Procedures Gastroenterology [facility] Procedures [id number]: [id number] Gastroesophageal reflux test
== END 2022-09-07 15:07 | disposition home or self-care (01) ==
LOC: EN 11:44 → AC 11:47
PROVIDERS: PCP Internal Medicine; Referring Provider Internal Medicine; Visit Provider Internal Medicine Gastroenterology
PROC: (CPT 43239; principal; 2022-09-07 13:25)
DX: K22.70 Barrett's esophagus without dysplasia (principal); E11.22 Type 2 diabetes mellitus with diabetic chronic kidney disease; N18.4 Chronic kidney disease, stage 4 (severe); Z79.4 Long term (current) use of insulin; I12.9 Hypertensive chronic kidney disease with stage 1 through stage 4 chronic kidney disease, or unspecified chronic kidney disease; K76.0 Fatty (change of) liver, not elsewhere classified; G47.33 Obstructive sleep apnea (adult) (pediatric); E66.9 Obesity, unspecified; F41.9 Anxiety disorder, unspecified; F32.9 Major depressive disorder, single episode, unspecified; Z79.82 Long term (current) use of aspirin; Z79.899 Other long term (current) drug therapy
CPT/HCPCS: 43239; 82962; 88305; 88313; 88341; 88342; J7120; J2405

== ENCOUNTER → 2022-09-16 | Outpatient (CLI) | payer MEDICARE, SELFPAY ==
[2022-09-16 16:26] LABS: Bacteria 0 SEEN /hpf (None Seen); Red Blood Cells-Urine 0 SEEN /hpf (0-5)
[2022-09-16 17:09] LABS: Color, Urine Yellow (Yellow); Glucose, Dipstick Normal (Normal); Ketone-Dipstick 5 mg/dl (Negative); Leukocyte Esterase-Dipstick 25 /ul (Negative); Nitrite-Dipstick Negative (Negative); Occult Blood-Urine Negative /ul (Negative); Protein-Dipstick 30 mg/dl (Negative); Urine Bilirubin Dipstick Negative (Negative); Urine Clarity Sl. Cloudy (Clear); Urine Urobilinogen Normal (Normal)
[2022-09-16 17:36] LABS: Amorphous Sediment 1+ URATE; Hyaline Cast 0-5 SEEN /lpf (0-5); Mucous, Urine RARE /hpf (<or=2+); Squamous Epithelial Cells - UA 0-5 SEEN /hpf (5-10); White Blood Cells 0-5 SEEN /hpf (0-5)
[2022-09-16 18:22] LABS: Anion Gap 5 (5-15); BUN 36 mg/dL (7-18); BUN/Creat Ratio 23.5 RATIO (10-20); Chloride 106 mmol/L (98-107); Creatinine, Serum 1.53 mg/dL (0.55-1.02); EST Glomerular Filtration Rate 36 mL/min (>60); Est Glom Filt Rate - Afr Amer 44 mL/min (>60); Glucose 82 mg/dL (74-106); Potassium 4.7 mmol/L (3.5-5.1); Sodium Level 138 mmol/L (136-145)
== END | disposition home or self-care (01) ==
LOC: BIMLAB 16:25
PROVIDERS: PCP Internal Medicine; Referring Provider Internal Medicine; Visit Provider Internal Medicine
DX: R31.9 Hematuria, unspecified (principal); E11.9 Type 2 diabetes mellitus without complications
CPT/HCPCS: 36415; 80048; 81001

== ENCOUNTER → 2022-09-22 | Outpatient (CLI) | payer MEDICARE, SELFPAY ==
[2022-09-22 17:09] LABS: Vitamin B12 542 pg/mL (211-911)
[2022-09-22 17:46] LABS: Ferritin 39 ng/mL (8-252); Iron 37 ug/dL (50-170); Iron Binding Capacity,Total 252 ug/dL (250-450); PERCENT IRON SATURATION 14.7 % (15.0-55.0)
[2022-09-26 12:46] LABS: Gastrin, Serum 16 pg/mL (0-115)
== END | disposition home or self-care (01) ==
LOC: LAB 15:44
PROVIDERS: PCP Internal Medicine; Referring Provider Nurse Practitioner Adult Health; Visit Provider Nurse Practitioner Adult Health
DX: E11.65 Type 2 diabetes mellitus with hyperglycemia (principal); Z79.4 Long term (current) use of insulin; K29.40 Chronic atrophic gastritis without bleeding
CPT/HCPCS: 36415; 82607; 82728; 82746; 82941; 83540; 83550

== ENCOUNTER → 2023-01-11 | Outpatient (CLI) | payer MEDICARE, SELFPAY ==
--- NOTE | 2023-01-11 07:55 | US_ITS ---
STUDY: ABDOMINAL ULTRASOUND - ELASTOGRAPHY REASON FOR VISIT: Female, 67 years old. NAFLD TECHNIQUE: Liver stiffness measurements were obtained on a [employer] RS 85 ultrasound machine using a CA 1-7 probe following the SRU guidelines. 3 measurements were obtained using a 2-D-SWE method. TheIQR/M was 23% suggesting a quality data set. TECHNICAL QUALITY: Adequate. COMPARISON: Comparison is made with prior study done earlier in the day. FINDINGS: Liver: Fatty infiltration of the liver. Median liver stiffness measured 10.1 kPa. Abdomen: There is no demonstrated mass lesion. US/Elastography Parenchyma/Organ IMPRESSION: Liver stiffness measures 10.1 kPa compatible with F2-F3 (Mild to moderate liver fibrosis) Metavir score. Electronically Signed: Bernardo Queen MD at 15:39 EDT ,
--- NOTE | 2023-01-11 07:55 | US_ITS ---
STUDY: ABDOMINAL ULTRASOUND - RIGHT UPPER QUADRANT REASON FOR VISIT: Female, 67 years old . NAFLD TECHNIQUE: Ultrasound evaluation of the right upper quadrant was performed with real-time and static monzon-scale imaging. TECHNICAL QUALITY: Adequate. COMPARISON: Comparison is made with prior study dated September 29, 2021. FINDINGS: Liver: The liver is enlarged and measures 18 cm. There is increased echogenicity consistent with fatty infiltration. Focal fatty sparing is seen adjacent to the gallbladder fossa. The bile ducts are within normal limits. There is hepatic color flow. The direction of portal flow is hepatopetal. There is no demonstrated mass lesion. Gallbladder: The patient is status post cholecystectomy. Common Bile Duct (C.B.D.): The common bile duct measures 2.4 mm. Pancreas: Normal size of the head, body of the pancreas. The tail portion is obscured due to overlying bowel gas. There is normal echogenicity of the pancreas. There is no demonstrated pancreatic mass or cyst. Right Kidney: Normal size of the right kidney. The right kidney measures 10.3 cm x 5.7 cm x 5.1 cm. Normal renal cortex. The right cortex measures 1.1 cm. There is a 1.1 cm x 1.2 cm x 1 cm cyst. There is no right hydronephrosis. US/Abdomen Limited IMPRESSION: Hepatomegaly and fatty infiltration of the liver. Small right renal cyst. Electronically Signed: Bernardo Queen MD at 15:37 EDT ,
== END | disposition home or self-care (01) ==
LOC: US 07:50
PROVIDERS: PCP Internal Medicine; Referring Provider Nurse Practitioner Adult Health; Visit Provider Nurse Practitioner Adult Health
DX: K76.0 Fatty (change of) liver, not elsewhere classified (principal)
CPT/HCPCS: 76705; 76981

== ENCOUNTER → 2023-01-13 | Outpatient (CLI) | payer MEDICARE, SELFPAY ==
--- NOTE | 2023-01-13 09:57 | NM_ITS ---
CLINICAL: 67-year-old female with history of early satiety. SEMI-SOLID PHASE 99m Tc SULFUR COLLOID GASTRIC EMPTYING STUDY COMPARISON: Abdominal ultrasound report 01/11/2023 FINDINGS: The patient was administered 1.2 mCi of 99m Tc sulfur colloid mixed with oatmeal and consumed per os. Image acquisitions in the anterior-posterior projections were obtained for 60 minutes. There is prompt visualization of the stomach. There is no gastroesophageal reflux identified. The T ? linear fit was calculated to be 109.31 minutes, (Normal: 12-56 minutes). NM/Gastric Emptying Study IMPRESSION: 1. ABNORMAL 99m Tc sulfur colloid semi-solid phase (oatmeal) gastric emptying imaging examination. A. There is delayed semi-solid phase gastric emptying compared to normal controls with maintained first order kinetics throughout all components of the examination. (Hector et al, J Nucl Med Tech 38: 186, 2010). Electronically Signed: Haja Winn, at 21:53 EDT ,
== END | disposition home or self-care (01) ==
LOC: NM 09:54
PROVIDERS: PCP Internal Medicine; Referring Provider Nurse Practitioner Adult Health; Visit Provider Nurse Practitioner Adult Health
DX: R11.10 Vomiting, unspecified (principal)
CPT/HCPCS: 78264; A9541

== ENCOUNTER → 2023-02-28 | Outpatient (CLI) | payer MEDICARE, SELFPAY ==
[2023-02-28 12:02] LABS: Absolute Lymphocyte Count 1.07 X10^3/uL (0.83-4.51); Basophil# 0.03 X10^3/uL; Basophil% 0.3 % (0-1); Eosinophil# 0.27 X10^3/uL; Hemoglobin 12.7 g/dL (12.0-15.0); Lymphocyte # 1.07 X10^3/ul (0.83-4.51); Lymphocyte % 11.8 % (19-41); Mean Corpuscular Hgb 28.9 pg (27.0-32.0); Mean Corpuscular Volume 93.2 fL (81-99); Mean Platelet Vol. 11.1 fl (6.2-12.0); Monocyte# 0.62 X10^3/uL; Monocyte% 6.9 % (0-10); NRBC Flagged by Analyzer 0 % (0-5); Neutrophil # 7.02 X10^3/uL (2.7-7.7); Neutrophil % 77.8 % (47-70); Platelet Count 229 K/mm3 (150-450); RBC Distribution Width CV 14.6 % (11.6-14.6); RBC Distribution Width SD 50.1 fl (35.1-43.9)
[2023-02-28 12:32] LABS: ALB/GLOB Ratio 0.9 RATIO (0.9-2.4); AST(SGOT) 48 U/L (15-37); Alanine Aminotransfer ALT/SGPT 41 U/L (13-56); Albumin, Serum 3.5 g/dL (3.2-5.0); Alkaline Phosphatase 153 U/L (45-117); Anion Gap -1 (5-15); BUN 33 mg/dL (7-18); BUN/Creat Ratio 21.6 RATIO (10-20); Calcium,Total 9.7 mg/dL (8.5-10.1); Chloride 111 mmol/L (98-107); Cholesterol 250 mg/dL (200); Creatinine, Serum 1.53 mg/dL (0.55-1.02); EST Glomerular Filtration Rate 36 mL/min (>60); Est Glom Filt Rate - Afr Amer 43 mL/min (>60); Globulin 3.7 g/dL (2.2-4.2); Glucose 94 mg/dL (74-106); High Density Lipoprotein 48 mg/dL; Phosphorus 2.4 mg/dL (2.5-4.9); Protein, Total 7.2 g/dL (6.4-8.2); Sodium Level 135 mmol/L (136-145); Triglycerides 228 mg/dL; Very Low Density Lipoprotein 46 mg/dL (5-40)
[2023-02-28 12:35] LABS: PTHIN 197.2 pg/mL (18.4-80.1)
== END | disposition home or self-care (01) ==
LOC: LAB.FUTURE 11:18 → BIMLAB 11:19
PROVIDERS: PCP Internal Medicine; Visit Provider Internal Medicine Nephrology
DX: N18.32 Chronic kidney disease, stage 3b (principal); E11.22 Type 2 diabetes mellitus with diabetic chronic kidney disease; E83.52 Hypercalcemia
CPT/HCPCS: 36415; 80053; 80061; 82306; 82570; 83970; 84100; 84156; 85025

== ENCOUNTER → 2023-09-01 | Outpatient (CLI) | payer MEDICARE, SELFPAY ==
[2023-09-01 12:26] LABS: Hematocrit 40.7 % (37-47); Hemoglobin 12.4 g/dL (12.0-15.0); Mean Corp Hgb Conc 30.5 g/dL (32-36); Mean Corpuscular Hgb 28.6 pg (27.0-32.0); Mean Corpuscular Volume 93.8 fL (81-99); Mean Platelet Vol. 10.2 fl (6.2-12.0); Platelet Count 268 K/mm3 (150-450); RBC Distribution Width CV 15.1 % (11.6-14.6); RBC Distribution Width SD 51.8 fl (35.1-43.9); Red Blood Count 4.34 M/mm3 (4.2-5.4); White Blood Count 6.5 K/mm3 (4.4-11.0)
[2023-09-01 12:54] LABS: Vitamin B12 885 pg/mL (211-911); Vitamin D,25 Hydroxy 53.2 ng/mL
[2023-09-01 13:12] LABS: ALB/GLOB Ratio 0.8 RATIO (0.9-2.4); AST(SGOT) 48 U/L (15-37); Alanine Aminotransfer ALT/SGPT 36 U/L (13-56); Albumin, Serum 3.3 g/dL (3.2-5.0); Alkaline Phosphatase 173 U/L (45-117); Anion Gap 5 (5-15); BUN 29 mg/dL (7-18); Calcium,Total 9.6 mg/dL (8.5-10.1); Chloride 108 mmol/L (98-107); Cholesterol 217 mg/dL (200); Creatinine, Serum 1.53 mg/dL (0.55-1.02); EST Glomerular Filtration Rate 36 mL/min (>60); Est Glom Filt Rate - Afr Amer 43 mL/min (>60); Ferritin 34 ng/mL (8-252); Globulin 4.1 g/dL (2.2-4.2); Glucose 95 mg/dL (74-106); High Density Lipoprotein 44 mg/dL; Iron 45 ug/dL (50-170); Magnesium 2.1 mg/dL (1.6-2.6); Potassium 4.1 mmol/L (3.5-5.1); Protein, Total 7.4 g/dL (6.4-8.2); Sodium Level 139 mmol/L (136-145); Thyroid Stim Hormone (TSH) 1.92 uIU/mL (0.358-3.74); Triglycerides 267 mg/dL; Very Low Density Lipoprotein 53 mg/dL (5-40)
[2023-09-01 13:39] LABS: Hemoglobin A1c 6.1 % (3.8-5.6)
[2023-09-13 15:08] LABS: Cotinine Screen Blood <1.0 ng/mL (.); Nicotine Blood <1.0 ng/mL (.); Vitamin B1, Thiamine 135.6 nmol/L (66.5-200.0); Zinc, Plasma or Serum 79 ug/dL (44-115)
== END | disposition home or self-care (01) ==
LOC: LAB.FUTURE 11:36 → BIMLAB 11:54
PROVIDERS: PCP Internal Medicine
DX: Z01.812 Encounter for preprocedural laboratory examination (principal); E66.01 Morbid (severe) obesity due to excess calories; E11.9 Type 2 diabetes mellitus without complications; G47.33 Obstructive sleep apnea (adult) (pediatric); K21.9 Gastro-esophageal reflux disease without esophagitis; I10 Essential (primary) hypertension; Z01.89 Encounter for other specified special examinations
CPT/HCPCS: 36415; 80053; 80061; 80323; 82306; 82607; 82728; 82746; 83036; 83540; 83735; 84425; 84443; 84630; 85027; G0480

== ENCOUNTER 2023-09-11 13:59 | Emergency (ER) | payer MEDICARE, SELFPAY ==
[2023-09-11 14:00] VITALS: BP 167/100; PULSE 96; RESP 18; TEMP 35.8; O2SAT 94
[2023-09-11 14:09] VITALS: BMI 46.7
--- NOTE | 2023-09-11 14:37 | EKG12_ITS ---
Test Reason : Blood Pressure : / mmHG Vent. Rate : 092 BPM Atrial Rate : 092 BPM P-R Int : 166 ms QRS Dur : 098 ms QT Int : 358 ms P-R-T Axes : 042 -23 057 degrees QTc Int : 442 ms Normal sinus rhythm Moderate voltage criteria for LVH, may be normal variant ( R in aVL , [employer] product ) Nonspecific ST abnormality Abnormal ECG Confirmed by TIFFANIE GLEASON, ADELINA ([id number]), fashion editor EN GUTIERREZ ([id number]) on 09/12/2023 1:02:31 PM Referred By: GREG Confirmed By:ADELINA MORENO MD
--- NOTE | 2023-09-11 14:40 | NURSING ---
NO OLD EKG
--- NOTE | 2023-09-11 15:10 | RAD_ITS ---
EXAM: XR CHEST, 2 VIEWS CLINICAL INDICATION: SOB TECHNIQUE: Frontal and lateral views of the chest. COMPARISON: 05.15.21 FINDINGS: LUNGS AND PLEURAL SPACES: Lower lobe atelectasis. No pneumothorax. No effusion. HEART: Unremarkable. Cardiac silhouette not enlarged. MEDIASTINUM: Central airways and mediastinal contour are unremarkable. BONES/JOINTS: Unremarkable. No acute fracture. SOFT TISSUES: Unremarkable. RAD/Chest PA and Lateral IMPRESSION: Lower lobe atelectasis. Electronically Signed: Osmel Chaney MD at 15:27 EST ,
[2023-09-11 15:18] LABS: Absolute Lymphocyte Count 1.53 X10^3/uL (0.83-4.51); Absolute Neutrophil Count 5.5 X10^3/uL (2.0-7.7); Basophil# 0.05 X10^3/uL; Basophil% 0.6 % (0-1); Eosinophils% 7.2 % (0-5); Hematocrit 36.3 % (37-47); Hemoglobin 11.4 g/dL (12.0-15.0); Lymphocyte # 1.53 X10^3/ul (0.83-4.51); Lymphocyte % 18.4 % (19-41); Mean Corp Hgb Conc 31.4 g/dL (32-36); Mean Corpuscular Hgb 29.1 pg (27.0-32.0); Mean Corpuscular Volume 92.6 fL (81-99); Mean Platelet Vol. 9.9 fl (6.2-12.0); Monocyte# 0.59 X10^3/uL; Monocyte% 7.1 % (0-10); NRBC Flagged by Analyzer 0 % (0-5); Neutrophil # 5.48 X10^3/uL (2.7-7.7); Platelet Count 244 K/mm3 (150-450); Red Blood Count 3.92 M/mm3 (4.2-5.4); White Blood Count 8.3 K/mm3 (4.4-11.0)
--- NOTE | 2023-09-11 15:23 | ED.VIS.DYS ---
HPI <EMILY Emanuel - Last Filed: 09/11/23 16:38> History of Present Illness Chief Complaint: Shortness of Breath Narrative Narrative: Patient presenting today due to a dry cough and shortness of breath that she has had over the past few days. She reports that she feels like she cannot catch her breath. She reports having a little bit of midsternal chest tightness but denies chest pain. Symptoms are worsened with exertion. She does have a history of asthma, she has not had much wheezing. She denies any sick contacts. She reports that she has felt hot and cold at times. She denies any other flu-like symptoms. PE Risk Factors: Negative for Cancer, Prior DVT or PE, Recent immobilization, Recent surgery or Recent travel PFS <EMILY Emaunel - Last Filed: 09/11/23 16:38> [facility] Medical History Abnormal thyroid function test Anemia Anxiety Anxiety and depression Arthritis Back pain Bilateral leg edema Bilateral lower extremity edema Blackout Chronic neck and back pain CKD (chronic kidney disease), stage III CPAP (continuous positive airway pressure) dependence Depression Diabetes Dietary restriction Difficulty balancing when standing Difficulty swallowing Dizziness Essential hypertension Fatigue Fatty liver Fibromyalgia Fibrosis of liver Flu vaccine need GERD (gastroesophageal reflux disease) Glaucoma Gout Health care maintenance Hematuria High cholesterol History of echocardiogram History of pain when walking History of renal disease History of stress test History of thyroid nodule Hx of phlebitis Hyperlipidemia Injury of foot, left Insomnia Insulin dependent diabetes mellitus Leg cramps Limb weakness Liver disease Loss of hearing Lyme disease Macular degeneration Migraine headache Morbid obesity Myositis Non-smoker Obesity BENTLEY on CPAP Osteoporosis Polymyositis Restless legs Sensorineural hearing loss of both ears Shoulder pain Sinusitis Type 2 diabetes mellitus Vitamin D deficiency Wears glasses Home Medications CPAP #1 ea 09/24/20 [History Last Taken Unknown] aspirin 81 mg tablet,delayed release 81 mg PO DAILY 09/24/20 [History Last Taken Unknown] blood pressure monitor (Blood Pressure Kit) #1 ea 09/24/20 [History Last Taken Unknown] blood sugar diagnostic (Accu-Chek Christi Plus test strips) #10 ea 09/24/20 [History Last Taken Unknown] blood-glucose meter #1 ea 09/24/20 [History Last Taken Unknown] lancets (Accu-Chek Softclix Lancets) #100 ea 09/24/20 [History Last Taken Unknown] vit C,E,zinc,Ze-ammjf-6-lutein-zeaxanthin 250 mg-2.5 mg-0.5 mg capsule 1 cap PO DAILY 09/24/20 [History Last Taken Unknown] latanoprost 0.005 % eye drops 1 drp ophthalmic (eye) PRN PRN MACULAR DEGENRATION 02/24/21 [History Last Taken Unknown] simethicone 80 mg chewable tablet 80 mg PO 4X/DAY PRN Flatulence #30 tabs 12/07/21 [Rx Last Taken Unknown] vitamin E 268 mg (400 unit) capsule 800 unit PO DAILY #60 caps 02/08/22 [Rx Last Taken Unknown] Bilateral wrist splints #2 ea 06/07/22 [Rx Last Taken Unknown] Trulicity 4.5 mg/0.5 mL subcutaneous pen injector (dulaglutide) 4.5 mg (0.5 mL) subcut QWEEK #2 mL 07/27/22 [Rx Last Taken Unknown] pen needle, diabetic 32 gauge x 1/4 (Novofine 32) #200 ea 07/27/22 [Rx Last Taken Unknown] cholestyramine (with sugar) 4 gram oral powder 4 g PO DAILY #348.6 grams 08/12/22 [Rx Last Taken Unknown] fluticasone propionate 50 mcg/actuation nasal spray,suspension 2 spray intranasal PRN PRN Nasal Congestion 09/06/22 [History Last Taken Unknown] ursodiol 250 mg tablet See Rx Instructions .Route .COMPLEX #180 tabs 10/14/22 [Rx Last Taken Unknown] lisinopril 2.5 mg tablet See Rx Instructions .Route .COMPLEX #90 TABLETS 10/26/22 [Rx Last Taken Unknown] pantoprazole 40 mg tablet,delayed release 40 mg PO BID #180 tabs 01/04/23 [Rx Last Taken Unknown] ezetimibe 10 mg tablet (Zetia) 10 mg PO DAILY #60 tabs 02/28/23 [Rx Last Taken Unknown] insulin lispro 100 unit/mL subcutaneous pen (Humalog KwikPen (U-100) Insulin) 12 unit subcut TID 02/28/23 [History Last Taken Unknown] Jardiance 10 mg tablet (empagliflozin) 10 mg PO DAILY #30 tabs 03/14/23 [Rx Last Taken Unknown] denosumab 60 mg/mL subcutaneous syringe (Prolia) 60 mg subcut [id number] #1 mL 03/17/23 [Rx Last Taken Unknown] insulin degludec 100 unit/mL (3 mL) subcutaneous pen (Tresiba FlexTouch U-100 insulin) 40 unit (0.4 mL) subcut QHS #36 mL 07/11/23 [Rx Last Taken Unknown] duloxetine 60 mg capsule,delayed release See Rx Instructions .Route .COMPLEX #180 caps 08/01/23 [Rx Last Taken Unknown] cholecalciferol (vitamin D3) 1,250 mcg (50,000 unit) capsule 1,250 mcg PO QWEEK #30 caps 08/22/23 [Rx Last Taken Unknown] amitriptyline 100 mg tablet 200 mg (2 x 100 mg) PO QHS #180 tabs 08/23/23 [Rx Last Taken Unknown] buspirone 10 mg tablet 10 mg PO TID #270 tabs 08/23/23 [Rx Last Taken Unknown] cyclobenzaprine 10 mg tablet 5 - 10 mg (0.5 - 1 x 10 mg) PO TID PRN muscle spasm #270 tabs 08/23/23 [Rx Last Taken Unknown] loratadine 10 mg tablet 10 mg PO DAILY #90 tabs 08/23/23 [Rx Last Taken Unknown] pregabalin 150 mg capsule 150 mg PO BID #180 caps 08/23/23 [Rx Last Taken Unknown] rimegepant 75 mg disintegrating tablet (Nurtec ODT) 75 mg PO DAILY PRN migraine headache #8 tabs 08/23/23 [Rx Last Taken Unknown] albuterol sulfate 90 mcg/actuation aerosol inhaler (Ventolin HFA) 1 - 2 puff inhalation Q4H PRN PRN Wheezing #1 inh 09/11/23 [Rx Last Taken Unknown] Allergy/AdvReac Type Severity Reaction Status Date / Time saliva substitute Allergy Severe Angioedema Verified 09/11/23 14:00 combination no.9 [From Biotene PBF] gemfibrozil AdvReac Severe Myalgia Verified 09/11/23 14:00 [id number] Reductase AdvReac Severe muscle pain Verified 09/11/23 14:00 Inhibitor Family History Brother Diabetes Mother Diabetes Heart disease Hypertension Grandmother Diabetes Sister Diabetes Heart disease Hypertension Thyroid disorder Father Kidney disease Grandfather Kidney disease Surgical History H/O: hysterectomy History of bilateral knee arthroplasty History of cholecystectomy History of esophagogastroduodenoscopy (EGD) Hx of colonoscopy Social History Smoking Status: Never smoker second hand exposure: No alcohol intake: never substance use type: does not use yessenia/christian: Advent seatbelt use: always ROS <EMILY Emanuel - Last Filed: 09/11/23 16:38> ROS ED Constitutional Constitutional ED: Denies chills or fever(s) Cardiovascular Cardiovascular: Denies chest pain or palpitations Respiratory/Chest Respiratory/Chest: Reports cough, dyspnea and dyspnea on exertion Gastrointestinal Gastrointestinal: Denies abdominal pain, nausea or vomiting Musculoskeletal Musculoskeletal: Denies arthralgias or myalgias Integumentary Denies rash Neurologic Neurologic: Denies weakness EXAM <EMILY Emanuel - Last Filed: 09/11/23 16:38> Physical Exam Const Vital Signs: 09/11/23 14:00 09/11/23 14:10 09/11/23 16:11 Temperature 96.4 F L Temperature Source Temporal Pulse Rate 96 81 Respiratory Rate 18 20 H Respiratory Effort Short of Breath Respiratory Depth Normal Respiratory Pattern Normal Normal Blood Pressure 167/100 H Blood Pressure Mean 122 Pulse Ox 94 Oxygen Delivery Method Room Air Room Air Positive well nourished, well developed and no apparent distress General Appearance ED: well developed HEENT Reports normocephalic and head/scalp atraumatic Mouth ED: Yes moist mucous membranes normal Eyes PERRL and EOMs intact bilaterally Neck full ROM and supple Chest Wall inspection of chest normal Resp normal respiratory effort and clear to auscultation bilaterally Cardio regular rate and regular rhythm GI soft to palpation, non-tender, non-distended and no masses Back/Spine normal ROM and normal to inspection Extremity normal to inspection and full ROM Neuro oriented x3, CN's II-XII intact bilaterally, moves all extremities, no focal motor deficits and no sensory deficits noted Sensorium / Orientation: awake and alert Psych mental status grossly normal and thought process normal Skin no rashes or lesions noted and no wounds <Dr. Salvador Brennan, DO - Last Filed: 09/11/23 22:10> Physical Exam Const Vital Signs: 09/11/23 14:00 09/11/23 14:10 09/11/23 16:11 Temperature 96.4 F L Temperature Source Temporal Pulse Rate 96 81 Respiratory Rate 18 20 H Respiratory Effort Short of Breath Respiratory Depth Normal Respiratory Pattern Normal Normal Blood Pressure 167/100 H Blood Pressure Mean 122 Pulse Ox 94 Oxygen Delivery Method Room Air Room Air MDM <EMILY Emanuel - Last Filed: 09/11/23 16:38> [facility] MDM Narrative Medical decision making narrative: Patient presenting due to shortness of breath she has had over the past few days. She is nontoxic-appearing and in no acute distress, vitals are unremarkable aside from being hypertensive. Labs will be obtained to rule out leukocytosis, anemia, electrolyte abnormality, MARIO, and ACS. Chest x-ray will be obtained to rule out infiltrate and other cardiopulmonary abnormality. COVID and flu swabs will be obtained. She will be given breathing treatments. On reexamination patient reports that she has had a dry cough as well over the past few days. Initially she told me that she had a history of COPD, but talking with her further she does not have COPD. She does have an albuterol inhaler to use as needed for her asthma and is almost out of this, I will give her a refill. Examination is consistent with a viral illness. CBC shows a mild anemia, BMP shows CKD consistent with previous labs. Chest x-ray unremarkable. Given is not hypoxic, she will be discharged home in stable condition and is comfortable with plan. Lab Data Attestation: I reviewed the patient's lab results. Lab results narrative: H&H 11.4 and 36.3, BUN 28, creatinine 1.53, GFR 36, troponin 34 Labs: Laboratory Results - last 24 hr 09/11/23 15:06 WBC 8.3 RBC 3.92 L Hgb 11.4 L Hct 36.3 L MCV 92.6 MCH 29.1 MCHC 31.4 L RDW Std Deviation 51.0 H RDW Coeff of Paulo 15.0 H Plt Count 244 MPV 9.9 Immature Gran % (Auto) 0.700 Neut % (Auto) 66.0 Lymph % (Auto) 18.4 L Payette % (Auto) 7.1 Eos % (Auto) 7.2 H Baso % (Auto) 0.6 Absolute Neuts (auto) 5.5 Absolute Lymphs (auto) 1.53 Nucleated RBC % 0 Sodium 139 Potassium 4.2 Chloride 109 H Carbon Dioxide 27.0 Anion Gap 3 L BUN 28 H Creatinine 1.53 H Estim Creat Clear Calc 25.28 Est GFR (MDRD) Af Amer 43 L Est GFR (MDRD) Non-Af 36 L BUN/Creatinine Ratio 18.3 Glucose 103 Calcium 9.7 Troponin I High Sens 34 Radiography X-Ray: Read by ED Physician and Read by Radiologist Diagnostic Testing: Clinical Impression(s) from Imaging Studies Chest X-Ray 09/11/23 15:10 IMPRESSION: Lower lobe atelectasis. Electronically Signed: Osmel Chaney MD at 15:27 EST , EKG Initial EKG: Comments: 92 bpm, normal sinus rhythm, nonspecific ST abnormality, no ST elevation, reviewed and interpreted by attending ED physician <Dr. Salvador Brennan, DO - Last Filed: 09/11/23 22:10> [facility] Lab Data Labs: Laboratory Results - last 24 hr 09/11/23 15:06 WBC 8.3 RBC 3.92 L Hgb 11.4 L Hct 36.3 L MCV 92.6 MCH 29.1 MCHC 31.4 L RDW Std Deviation 51.0 H RDW Coeff of Paulo 15.0 H Plt Count 244 MPV 9.9 Immature Gran % (Auto) 0.700 Neut % (Auto) 66.0 Lymph % (Auto) 18.4 L Payette % (Auto) 7.1 Eos % (Auto) 7.2 H Baso % (Auto) 0.6 Absolute Neuts (auto) 5.5 Absolute Lymphs (auto) 1.53 Nucleated RBC % 0 Sodium 139 Potassium 4.2 Chloride 109 H Carbon Dioxide 27.0 Anion Gap 3 L BUN 28 H Creatinine 1.53 H Estim Creat Clear Calc 25.28 Est GFR (MDRD) Af Amer 43 L Est GFR (MDRD) Non-Af 36 L BUN/Creatinine Ratio 18.3 Glucose 103 Calcium 9.7 Troponin I High Sens 34 Radiography Diagnostic Testing: Clinical Impression(s) from Imaging Studies Chest X-Ray 09/11/23 15:10 IMPRESSION: Lower lobe atelectasis. Electronically Signed: Osmel Chaney MD at 15:27 EST Reading Location ID and State: [facility] / [place] , Service support , Treatment and Re-Evaluation :: I have personally performed a face to face assessment of the patient and have reviewed the IRAM Note. I performed a substantive portion of the visit including all aspects of the following. My collazo findings include: History: Patient presents with shortness of breath that has been getting worse over the past few days. Patient states her breathing is worse with any exertion. Patient states it is also worse when she goes out in the cold and when she lays flat. Patient states she is coughing up some green and yellow sputum. Patient admits to some subjective fevers and chills but did not take her temperature. Patient admits to some tightness in her chest. Exam: Vital signs are stable. Patient is afebrile. Patient is in no acute distress. Oral mucosa is pink and moist. Oropharynx is clear. Airway is patent. Neck is supple. Trachea is midline. There is no JVD. Heart was regular rate and rhythm. Lungs are clear and equal bilateral. Abdomen is soft. Bowel sounds are normal. There is no tenderness. Cranial nerves II through XII are intact. There are no focal motor or sensory deficits noted. Medical Decision Making: Differential diagnosis includes pneumonia, viral infection, cardiac dysrhythmia, cardiac ischemia, and electrolyte abnormality. COVID-19 rapid antigen will be obtained to assess for COVID-19 infection. Influenza a and influenza B antigens will be obtained to assess for influenza infection. EKG will be obtained to assess for cardiac dysrhythmia and cardiac ischemia. PA and lateral chest x-ray will be obtained to assess for pneumonia and pneumothorax. CBC will be obtained to assess for leukocytosis and anemia. Basic metabolic profile will be obtained to assess for electrolyte abnormality and renal function. High-sensitivity troponin will be obtained to assess for cardiac ischemia. Patient was given a DuoNeb aerosol here. Patient was also given a albuterol aerosol. EKG was obtained. On my independent interpretation, it shows normal sinus rhythm with a rate of 92. NV interval was within normal limits. QRS interval was within normal limits. QTc interval was within normal limits. There is borderline left axis deviation at -23. There are nonspecific ST-T wave changes noted. PA and lateral chest x-ray was obtained. There are 2 views. On my independent interpretation, lung gardner showed bibasilar atelectasis. There is normal cardiac silhouette. Bony thorax is normal. There is no acute process noted. Radiologist also interpreted the x-ray and agrees. CBC was reviewed. There is a mild anemia with a hemoglobin of 11.4 hematocrit 36.3. The remainder is within normal limits. Basic metabolic profile was reviewed. Creatinine was slightly elevated at 1.53 and BUN was 28. These are consistent with prior results. High-sensitivity troponin was reviewed and was normal at 34. COVID-19 rapid antigen was reviewed and was negative. Influenza A and influenza B antigens were reviewed and were negative. Patient was feeling better on reevaluation. Patient was advised of her findings. Patient was instructed to follow-up with her primary care physician in 5 to 7 days. Patient was instructed to return if worse in any way. Patient understood and was agreeable with the plan. All questions were answered. Discharge Plan Triage Chief Complaint: Shortness of Breath ED Midlevel Provider: Fabi Tabares ED Provider: Salvador Brennan Dx/Rx/DC Orders Prescriptions: No Action (DME) lancets [Accu-Chek Softclix Lancets] Misc See Rx Instructions .ROUTE .MEDSUPPLY Qty: 100 Rx Instructions: As directed, Test 4 times daily before meals and at bedtime (DME) Accu-Chek Christi Plus test strp Strip See Rx Instructions .ROUTE .MEDSUPPLY Qty: 10 Rx Instructions: As directed; Test 4 times daily before meals and at bedtime vit C,E,zinc,Qp-ejegj-7-lutein-zeaxanthin 250 mg-2.5 mg-0.5 mg capsule 250-2.5-0.5 mg capsule 1 cap PO DAILY (DME) CPAP See Rx Instructions .Route .MEDSUPPLY Qty: 1 Rx Instructions: 14 cm H2O (DME) blood-glucose meter Misc See Rx Instructions .ROUTE .MEDSUPPLY Qty: 1 Rx Instructions: As directed (DME) blood pressure monitor [Blood Pressure Kit] Kit See Rx Instructions .ROUTE .MEDSUPPLY Qty: 1 Rx Instructions: As directed aspirin 81 mg tablet,delayed release (DR/EC) 81 mg PO DAILY latanoprost 0.005 % drops 1 drp ophthalmic (eye) PRN PRN (Reason: MACULAR DEGENRATION) vitamin E 400 unit capsule 800 unit PO DAILY Qty: 60 5RF (DME) pen needle, diabetic [Novofine 32] 32 gauge x 1/4 needle See Rx Instructions .ROUTE .MEDSUPPLY Qty: 200 6RF Rx Instructions: As directed; 4x/day Trulicity 4.5 mg/0.5 mL pen injector 4.5 mg subcut QWEEK Qty: 2 4RF (DME) Bilateral wrist splints See Rx Instructions .Route .MEDSUPPLY Qty: 2 0RF Rx Instructions: As directed insulin lispro [Humalog KwikPen Insulin] 100 unit/mL insulin pen 12 unit subcut TID Rx Instructions: 12u with meals, 6u with snacks. +SSI 180-210+2; 211-240+3; 241-300+5; >300 +7 MDD 50 pantoprazole 40 mg tablet,delayed release (DR/EC) 40 mg PO BID Qty: 180 1RF buspirone 10 mg tablet 10 mg PO TID Qty: 270 1RF loratadine 10 mg tablet 10 mg PO DAILY Qty: 90 1RF amitriptyline 100 mg tablet 200 mg PO QHS Qty: 180 1RF Nurtec ODT 75 mg tablet,disintegrating 75 mg PO DAILY PRN (Reason: migraine headache) Qty: 8 5RF pregabalin 150 mg capsule 150 mg PO BID Qty: 180 1RF cyclobenzaprine 10 mg tablet 5 - 10 mg PO TID PRN (Reason: muscle spasm) Qty: 270 1RF fluticasone propionate 50 mcg/actuation spray,suspension 2 spray INTRANASAL PRN PRN (Reason: Nasal Congestion) Rx Instructions: administer into each nostril simethicone 80 mg tablet,chewable 80 mg PO 4X/DAY PRN (Reason: Flatulence) Qty: 30 1RF cholestyramine (with sugar) 4 gram powder 4 g PO DAILY Qty: 348.6 0RF Rx Instructions: administer w/meal; avoid other meds within 1hr before or 4-6hr after dose ursodiol 250 mg tablet See Rx Instructions .ROUTE .COMPLEX Qty: 180 3RF Dose Instruction: TAKE 1 TABLET BY MOUTH TWICE DAILY Rx Instructions: TAKE 1 TABLET BY MOUTH TWICE DAILY lisinopril 2.5 mg tablet See Rx Instructions .ROUTE .COMPLEX Qty: 90 2RF Dose Instruction: TAKE 1 TABLET BY MOUTH EVERY DAY Rx Instructions: TAKE 1 TABLET BY MOUTH EVERY DAY ezetimibe [Zetia] 10 mg tablet 10 mg PO DAILY Qty: 60 2RF Jardiance 10 mg tablet 10 mg PO DAILY Qty: 30 6RF Prolia 60 mg/mL syringe 60 mg subcut [id number] Qty: 1 0RF Tresiba FlexTouch U-100 100 unit/mL (3 mL) insulin pen 40 unit SC QHS Qty: 36 1RF duloxetine 60 mg capsule,delayed release(DR/EC) See Rx Instructions .ROUTE .COMPLEX Qty: 180 1RF Dose Instruction: TAKE 2 CAPSULES BY MOUTH DAILY Rx Instructions: TAKE 2 CAPSULES BY MOUTH DAILY cholecalciferol (vitamin D3) 1,250 mcg (50,000 unit) capsule 1,250 mcg PO QWEEK Qty: 30 1RF Primary Care Provider: Vamsi Epperson Referrals: Vamsi Epperson MD [Primary Care Provider] -
[2023-09-11 15:47] LABS: Anion Gap 3 (5-15); BUN 28 mg/dL (7-18); BUN/Creat Ratio 18.3 RATIO (10-20); Calcium,Total 9.7 mg/dL (8.5-10.1); Chloride 109 mmol/L (98-107); Creatinine, Serum 1.53 mg/dL (0.55-1.02); EST Glomerular Filtration Rate 36 mL/min (>60); Est Glom Filt Rate - Afr Amer 43 mL/min (>60); Estimated Creatinine Clearance 25.28 ml/min; Glucose 103 mg/dL (74-106); Potassium 4.2 mmol/L (3.5-5.1); Sodium Level 139 mmol/L (136-145); Troponin-I HS 34 pg/mL (3.0-54.0)
[2023-09-11 16:11] VITALS: PULSE 81; RESP 20
[2023-09-11] MEDS: Albuterol 2.5 MG/3 ML VIAL.NEB. INHALATION (16:11)
[2023-09-11] MEDS: Ipratropium/Albuterol Sulfate 3 ML AMPUL.NEB INHALATION (16:11)
== END 2023-09-11 16:31 | disposition home or self-care (01) ==
PROVIDERS: Physician Assistant; Emergency Provider Emergency Medicine; PCP Internal Medicine; Visit Provider Emergency Medicine
DX: R06.02 Shortness of breath (principal); E11.22 Type 2 diabetes mellitus with diabetic chronic kidney disease; Z79.4 Long term (current) use of insulin; N18.30 Chronic kidney disease, stage 3 unspecified; E78.00 Pure hypercholesterolemia, unspecified; I12.9 Hypertensive chronic kidney disease with stage 1 through stage 4 chronic kidney disease, or unspecified chronic kidney disease; Z99.89 Dependence on other enabling machines and devices; Z79.82 Long term (current) use of aspirin; Z79.899 Other long term (current) drug therapy; Z79.85 Long-term (current) use of injectable non-insulin antidiabetic drugs; K21.9 Gastro-esophageal reflux disease without esophagitis; M81.0 Age-related osteoporosis without current pathological fracture; G43.909 Migraine, unspecified, not intractable, without status migrainosus; F41.8 Other specified anxiety disorders; Z90.710 Acquired absence of both cervix and uterus; Z90.49 Acquired absence of other specified parts of digestive tract
CPT/HCPCS: 71046; 80048; 84484; 85025; 87428; 93005; 94640; 99283; A4216

== ENCOUNTER 2023-09-13 23:24 | Emergency (ER) | payer MEDICARE, SELFPAY ==
[2023-09-13 23:27] VITALS: BP 166/115; PULSE 105; RESP 20; TEMP 36.4; O2SAT 93; BMI 44.3
--- NOTE | 2023-09-13 23:28 | EX.ED.DYSGE1 ---
HPI History of Present Illness Chief Complaint: Weakness Informant: patient Narrative Narrative: Patient states that she is having trouble putting weight on her feet due to gout. She has a long history of gout. She used to be on allopurinol but has been off of it for a long time and she is not sure why. She states she has gout in her left foot now. This is a typical spot for it. It will sometimes occur in her right foot and her left wrist but it is not there too much. She states the left wrist is perfectly fine and the right foot is just minimally sore. She did slip getting out of bed this morning but she did not hurt herself. There was no impact. I also talked to her about her visit 2 days ago. She was evidently visiting her roommate/significant other in the ED. She had walked up the ramp. She states her foot was hurting so she got short of breath just from the effort of walking up the ramp. It was recommended she get seen. She is not having any pulmonary symptoms now. She is not having fevers or chills. No vomiting. Again, she slipped getting out of bed but did not hurt herself. Patient also states that she has an appointment here at 6 AM to get some blood work and EKG done for preoperative clearance. But she does not know what this is. I told her she did have blood work and EKG just on the 17 of this month and it certainly possible that that may substitute but I cannot say that for sure. I did not order the outpatient testing and cannot see on the computer what she is going to be tested for. [facility] Medical History Abnormal thyroid function test Anemia Anxiety Anxiety and depression Arthritis Back pain Bilateral lower extremity edema Blackout Chronic neck and back pain CKD (chronic kidney disease), stage III CPAP (continuous positive airway pressure) dependence Depression Diabetes Dietary restriction Difficulty balancing when standing Difficulty swallowing Dizziness Essential hypertension Fatigue Fatty liver Fibromyalgia Fibrosis of liver Flu vaccine need GERD (gastroesophageal reflux disease) Glaucoma Gout Hematuria High cholesterol History of echocardiogram History of pain when walking History of renal disease History of stress test History of thyroid nodule Hx of phlebitis Hyperlipidemia Insomnia Insulin dependent diabetes mellitus Leg cramps Limb weakness Liver disease Loss of hearing Lyme disease Macular degeneration Migraine headache Morbid obesity Myositis Non-smoker Obesity [place] on CPAP Osteoporosis Polymyositis Restless legs Sensorineural hearing loss of both ears Shoulder pain Sinusitis Type 2 diabetes mellitus Vitamin D deficiency Wears glasses Home Medications CPAP #1 ea 09/24/20 [History Last Taken Unknown] aspirin 81 mg tablet,delayed release 81 mg PO DAILY 09/24/20 [History Last Taken Unknown] blood pressure monitor (Blood Pressure Kit) #1 ea 09/24/20 [History Last Taken Unknown] blood sugar diagnostic (Accu-Chek Christi Plus test strips) #10 ea 09/24/20 [History Last Taken Unknown] blood-glucose meter #1 ea 09/24/20 [History Last Taken Unknown] lancets (Accu-Chek Softclix Lancets) #100 ea 09/24/20 [History Last Taken Unknown] vit C,E,zinc,Sb-opnbw-9-lutein-zeaxanthin 250 mg-2.5 mg-0.5 mg capsule 1 cap PO DAILY 09/24/20 [History Last Taken Unknown] latanoprost 0.005 % eye drops 1 drp ophthalmic (eye) PRN PRN MACULAR DEGENRATION 02/24/21 [History Last Taken Unknown] simethicone 80 mg chewable tablet 80 mg PO 4X/DAY PRN Flatulence #30 tabs 12/07/21 [Rx Last Taken Unknown] vitamin E 268 mg (400 unit) capsule 800 unit PO DAILY #60 caps 02/08/22 [Rx Last Taken Unknown] Bilateral wrist splints #2 ea 06/07/22 [Rx Last Taken Unknown] Trulicity 4.5 mg/0.5 mL subcutaneous pen injector (dulaglutide) 4.5 mg (0.5 mL) subcut QWEEK #2 mL 07/27/22 [Rx Last Taken Unknown] pen needle, diabetic 32 gauge x 1/4 (Novofine 32) #200 ea 07/27/22 [Rx Last Taken Unknown] cholestyramine (with sugar) 4 gram oral powder 4 g PO DAILY #348.6 grams 08/12/22 [Rx Last Taken Unknown] fluticasone propionate 50 mcg/actuation nasal spray,suspension 2 spray intranasal PRN PRN Nasal Congestion 09/06/22 [History Last Taken Unknown] ursodiol 250 mg tablet See Rx Instructions .Route .COMPLEX #180 tabs 10/14/22 [Rx Last Taken Unknown] lisinopril 2.5 mg tablet See Rx Instructions .Route .COMPLEX #90 TABLETS 10/26/22 [Rx Last Taken Unknown] pantoprazole 40 mg tablet,delayed release 40 mg PO BID #180 tabs 01/04/23 [Rx Last Taken Unknown] ezetimibe 10 mg tablet (Zetia) 10 mg PO DAILY #60 tabs 02/28/23 [Rx Last Taken Unknown] insulin lispro 100 unit/mL subcutaneous pen (Humalog KwikPen (U-100) Insulin) 12 unit subcut TID 02/28/23 [History Last Taken Unknown] Jardiance 10 mg tablet (empagliflozin) 10 mg PO DAILY #30 tabs 03/14/23 [Rx Last Taken Unknown] denosumab 60 mg/mL subcutaneous syringe (Prolia) 60 mg subcut [id number] #1 mL 03/17/23 [Rx Last Taken Unknown] insulin degludec 100 unit/mL (3 mL) subcutaneous pen (Tresiba FlexTouch U-100 insulin) 40 unit (0.4 mL) subcut QHS #36 mL 07/11/23 [Rx Last Taken Unknown] duloxetine 60 mg capsule,delayed release See Rx Instructions .Route .COMPLEX #180 caps 08/01/23 [Rx Last Taken Unknown] cholecalciferol (vitamin D3) 1,250 mcg (50,000 unit) capsule 1,250 mcg PO QWEEK #30 caps 08/22/23 [Rx Last Taken Unknown] amitriptyline 100 mg tablet 200 mg (2 x 100 mg) PO QHS #180 tabs 08/23/23 [Rx Last Taken Unknown] buspirone 10 mg tablet 10 mg PO TID #270 tabs 08/23/23 [Rx Last Taken Unknown] cyclobenzaprine 10 mg tablet 5 - 10 mg (0.5 - 1 x 10 mg) PO TID PRN muscle spasm #270 tabs 08/23/23 [Rx Last Taken Unknown] loratadine 10 mg tablet 10 mg PO DAILY #90 tabs 08/23/23 [Rx Last Taken Unknown] pregabalin 150 mg capsule 150 mg PO BID #180 caps 08/23/23 [Rx Last Taken Unknown] rimegepant 75 mg disintegrating tablet (Nurtec ODT) 75 mg PO DAILY PRN migraine headache #8 tabs 08/23/23 [Rx Last Taken Unknown] albuterol sulfate 90 mcg/actuation aerosol inhaler (Ventolin HFA) 1 - 2 puff inhalation Q4H PRN PRN Wheezing #1 inh 09/11/23 [Rx Last Taken Unknown] oxycodone-acetaminophen 5 mg-325 mg tablet 1 tab PO Q6H PRN PRN Pain 3 days #12 TABLETS 09/13/23 [Rx Last Taken Unknown] prednisone 20 mg tablet 40 mg (2 x 20 mg) PO DAILY 5 days #10 TABLETS 09/13/23 [Rx Last Taken Unknown] Allergy/AdvReac Type Severity Reaction Status Date / Time saliva substitute Allergy Severe Angioedema Verified 09/13/23 23:26 combination no.9 [From [email or web address] [facility]] gemfibrozil AdvReac Severe Myalgia Verified 09/13/23 23:26 [id number] Reductase AdvReac Severe muscle pain Verified 09/13/23 23:26 Inhibitor Family History Brother Diabetes Mother Diabetes Heart disease Hypertension Grandmother Diabetes Sister Diabetes Heart disease Hypertension Thyroid disorder Father Kidney disease Grandfather Kidney disease Surgical History H/O: hysterectomy History of bilateral knee arthroplasty History of cholecystectomy History of esophagogastroduodenoscopy (EGD) Hx of colonoscopy Social History Smoking Status: Never smoker second hand exposure: No alcohol intake: never substance use type: does not use yessenia/cheondoism: [employer] seatbelt use: always ROS ROS ED Constitutional Constitutional ED: Denies chills, fever(s), subjective or sweats ENT ENT ED: Denies sore throat Cardiovascular Cardiovascular: Denies chest pain or palpitations Respiratory/Chest Respiratory/Chest: Denies cough or dyspnea Gastrointestinal Gastrointestinal: Denies nausea or vomiting Musculoskeletal Musculoskeletal: Reports arthralgias and other Details: See history of present illness Integumentary Denies abscess Neurologic Neurologic: Denies paresthesias Hematologic/Lymphatic Hematologic/Lymphatic: Denies easy bleeding or easy bruising Allergic/Immunologic Allergic/Immunologic ED: Denies urticaria EXAM Physical Exam Narrative Exam Narrative: General: Patient awake alert very pleasant nontoxic appearing as I walk in the room. HEENT: No swelling. Oropharynx is normal. Speech is normal. She does look well-hydrated. Neck is supple. Heart is regular. She has a rate of about 85 now. I hear no murmur on her. Pulses including her left foot this mostly involved with the gout is normal. Lungs are clear bilaterally. Saturations are anywhere 93-96% on room air on the monitor showing no hypoxia. Abdomen is obese but otherwise normal bowel sounds soft and completely nontender. Extremities: She has bunions on both feet. There is minimal erythema on the right first MTP. There is some swelling and erythema on the left MTP. But no lymphangitic streaking. This looks to be most consistent with gout and is not typical for infection. There is no involvement of her left wrist that sometimes will get involved with gout. No swelling of the legs or arms. No pitting edema. No cord. No palpable lymphadenopathy. Neurologically she is awake alert appropriate no acute distress. Const Vital Signs: 09/13/23 23:27 09/13/23 23:30 09/14/23 00:57 Temperature 97.6 F L Temperature Source Temporal Pulse Rate 105 H 96 Respiratory Rate 20 H 18 Respiratory Effort Short of Breath Respiratory Pattern Tachypnea Blood Pressure 166/115 H 162/92 H Blood Pressure Mean 132 115 Pulse Ox 93 92 Oxygen Delivery Method Room Air Room Air MDM MDM MDM Narrative Medical decision making narrative: I talked with patient about options. She states she has had gout for many years. This is a typical location for her gout. This is a typical feeling for gout. It just hurts and she is having trouble walking because of this. We discussed that it is possible to admit her to the hospital but it would probably be better if we could control her symptoms and avoid exposure to illnesses that we may have inpatient. She is fine with that plan. She states she has taken prednisone before and has tolerated it without problems with her blood sugar. I will give her dose of that and pain meds here. I will not start allopurinol now as it is likely to worsen this. I did review her blood work just from 2 days ago. She has chronic renal insufficiency. But I do not think we need to repeat this blood work as she has been eating and drinking and doing well since that. I do not think x-rays are needed as she has not had trauma to this foot. She did slip out of bed but denies hurting this foot. The reason she slipped was because of soreness in this foot from her gout. I also reviewed her online prescribing report that shows no narcotics. Discharge Plan Triage Chief Complaint: Weakness ED Provider: Tuan Glover Dx/Rx/DC Orders Clinical Impression: Acute gout of left foot, History of gout Instructions: ED Gout Prescriptions: New prednisone 20 mg tablet 40 mg PO DAILY 5 Days Qty: 10 0RF oxycodone-acetaminophen [oxycodone-acetaminophen] 5-325 mg tablet 1 tab PO Q6H PRN PRN (Reason: Pain) 3 Days Qty: 12 0RF No Action (DME) lancets [Accu-Chek Softclix Lancets] Misc See Rx Instructions .ROUTE .MEDSUPPLY Qty: 100 Rx Instructions: As directed, Test 4 times daily before meals and at bedtime (DME) Accu-Chek Christi Plus test strp Strip See Rx Instructions .ROUTE .MEDSUPPLY Qty: 10 Rx Instructions: As directed; Test 4 times daily before meals and at bedtime vit C,E,zinc,Ff-gagxy-4-lutein-zeaxanthin 250 mg-2.5 mg-0.5 mg capsule 250-2.5-0.5 mg capsule 1 cap PO DAILY (DME) CPAP See Rx Instructions .Route .MEDSUPPLY Qty: 1 Rx Instructions: 14 cm H2O (DME) blood-glucose meter Misc See Rx Instructions .ROUTE .MEDSUPPLY Qty: 1 Rx Instructions: As directed (DME) blood pressure monitor [Blood Pressure Kit] Kit See Rx Instructions .ROUTE .MEDSUPPLY Qty: 1 Rx Instructions: As directed aspirin 81 mg tablet,delayed release (DR/EC) 81 mg PO DAILY latanoprost 0.005 % drops 1 drp ophthalmic (eye) PRN PRN (Reason: MACULAR DEGENRATION) vitamin E 400 unit capsule 800 unit PO DAILY Qty: 60 5RF (DME) pen needle, diabetic [Novofine 32] 32 gauge x 1/4 needle See Rx Instructions .ROUTE .MEDSUPPLY Qty: 200 6RF Rx Instructions: As directed; 4x/day Trulicity 4.5 mg/0.5 mL pen injector 4.5 mg subcut QWEEK Qty: 2 4RF (DME) Bilateral wrist splints See Rx Instructions .Route .MEDSUPPLY Qty: 2 0RF Rx Instructions: As directed insulin lispro [Humalog KwikPen Insulin] 100 unit/mL insulin pen 12 unit subcut TID Rx Instructions: 12u with meals, 6u with snacks. +SSI 180-210+2; 211-240+3; 241-300+5; >300 +7 MDD 50 pantoprazole 40 mg tablet,delayed release (DR/EC) 40 mg PO BID Qty: 180 1RF buspirone 10 mg tablet 10 mg PO TID Qty: 270 1RF loratadine 10 mg tablet 10 mg PO DAILY Qty: 90 1RF amitriptyline 100 mg tablet 200 mg PO QHS Qty: 180 1RF Nurtec ODT 75 mg tablet,disintegrating 75 mg PO DAILY PRN (Reason: migraine headache) Qty: 8 5RF pregabalin 150 mg capsule 150 mg PO BID Qty: 180 1RF cyclobenzaprine 10 mg tablet 5 - 10 mg PO TID PRN (Reason: muscle spasm) Qty: 270 1RF fluticasone propionate 50 mcg/actuation spray,suspension 2 spray INTRANASAL PRN PRN (Reason: Nasal Congestion) Rx Instructions: administer into each nostril albuterol sulfate [Ventolin HFA] 90 mcg/actuation HFA aerosol inhaler 1 - 2 puff inhalation Q4H PRN PRN (Reason: Wheezing) Qty: 1 0RF simethicone 80 mg tablet,chewable 80 mg PO 4X/DAY PRN (Reason: Flatulence) Qty: 30 1RF cholestyramine (with sugar) 4 gram powder 4 g PO DAILY Qty: 348.6 0RF Rx Instructions: administer w/meal; avoid other meds within 1hr before or 4-6hr after dose ursodiol 250 mg tablet See Rx Instructions .ROUTE .COMPLEX Qty: 180 3RF Dose Instruction: TAKE 1 TABLET BY MOUTH TWICE DAILY Rx Instructions: TAKE 1 TABLET BY MOUTH TWICE DAILY lisinopril 2.5 mg tablet See Rx Instructions .ROUTE .COMPLEX Qty: 90 2RF Dose Instruction: TAKE 1 TABLET BY MOUTH EVERY DAY Rx Instructions: TAKE 1 TABLET BY MOUTH EVERY DAY ezetimibe [Zetia] 10 mg tablet 10 mg PO DAILY Qty: 60 2RF Jardiance 10 mg tablet 10 mg PO DAILY Qty: 30 6RF Prolia 60 mg/mL syringe 60 mg subcut [id number] Qty: 1 0RF Tresiba FlexTouch U-100 100 unit/mL (3 mL) insulin pen 40 unit SC QHS Qty: 36 1RF duloxetine 60 mg capsule,delayed release(DR/EC) See Rx Instructions .ROUTE .COMPLEX Qty: 180 1RF Dose Instruction: TAKE 2 CAPSULES BY MOUTH DAILY Rx Instructions: TAKE 2 CAPSULES BY MOUTH DAILY cholecalciferol (vitamin D3) 1,250 mcg (50,000 unit) capsule 1,250 mcg PO QWEEK Qty: 30 1RF Primary Care Provider: Vamsi Epperson Referrals: Vamsi Epperson MD [Primary Care Provider] - Disposition Disposition: Home, Self Care Discharge Date/Time: 09/14/23 00:58
[2023-09-13] MEDS: predniSONE 20 MG Tablet 60 MG PO (23:58)
[2023-09-13] MEDS: oxyCODONE 5 MG Tablet PO (23:58)
[2023-09-14 00:57] VITALS: BP 162/92; PULSE 96; RESP 18; O2SAT 92
== END 2023-09-14 00:58 | disposition home or self-care (01) ==
LOC: ED 23:53
PROVIDERS: Emergency Provider Emergency Medicine; PCP Internal Medicine; Visit Provider Emergency Medicine
DX: M10.9 Gout, unspecified (principal); E11.22 Type 2 diabetes mellitus with diabetic chronic kidney disease; N18.30 Chronic kidney disease, stage 3 unspecified; E78.00 Pure hypercholesterolemia, unspecified; I12.9 Hypertensive chronic kidney disease with stage 1 through stage 4 chronic kidney disease, or unspecified chronic kidney disease
CPT/HCPCS: 99283

== ENCOUNTER 2023-09-20 09:29 | Inpatient (IN) | payer MEDICARE, SELFPAY ==
[2023-09-20] VITALS (13 sets, daily range): BP systolic 131–190; BP diastolic 84–112; PULSE 88–109; RESP 18–30; TEMP 36.8–37; O2SAT 76–96; BMI 44.2; BMI 43.3
--- NOTE | 2023-09-20 09:46 | EKG12_ITS ---
Test Reason : DYSPNEA Blood Pressure : / mmHG Vent. Rate : 106 BPM Atrial Rate : 106 BPM P-R Int : 138 ms QRS Dur : 094 ms QT Int : 334 ms P-R-T Axes : 053 -36 028 degrees QTc Int : 443 ms Sinus tachycardia Left axis deviation Minimal voltage criteria for LVH, may be normal variant ( R in aVL ) Abnormal ECG Confirmed by TIFFANIE GLEASON, ADELINA ([id number]), international editorial producer ALEXANDER HUNTER ([id number]) on 09/27/2023 8:16:24 AM Referred By: KARY Confirmed By:ADELINA MORENO MD
--- NOTE | 2023-09-20 09:48 | EX.ED.DYSGE1 ---
HPI History of Present Illness Chief Complaint: Shortness of Breath Informant: patient Onset/Context/Timing Onset: Days Context: Gradual Onset Narrative Narrative: Patient present secondary to increasing shortness of breath. She was seen here on the with shortness of breath and some chest heaviness. Workup was rather unremarkable. She was seen a few days later with gout in her left foot. She is currently on prednisone and oxycodone. Patient states that she continues to get increasing shortness of breath with cough. She was noted to be 76% on room air on arrival to the emergency room. She does report having a fever at home up to 101. [facility] Medical History Abnormal thyroid function test Anemia Anxiety Anxiety and depression Arthritis Back pain Bilateral lower extremity edema Blackout Chronic neck and back pain CKD (chronic kidney disease), stage III CPAP (continuous positive airway pressure) dependence Depression Diabetes Dietary restriction Difficulty balancing when standing Difficulty swallowing Dizziness Essential hypertension Fatigue Fatty liver Fibromyalgia Fibrosis of liver Flu vaccine need GERD (gastroesophageal reflux disease) Glaucoma Gout Hematuria High cholesterol History of echocardiogram History of pain when walking History of renal disease History of stress test History of thyroid nodule Hx of phlebitis Hyperlipidemia Insomnia Insulin dependent diabetes mellitus Leg cramps Limb weakness Liver disease Loss of hearing Lyme disease Macular degeneration Migraine headache Morbid obesity Myositis Non-smoker Obesity BENTLEY on CPAP Osteoporosis Polymyositis Restless legs Sensorineural hearing loss of both ears Shoulder pain Sinusitis Type 2 diabetes mellitus Vitamin D deficiency Wears glasses Home Medications CPAP #1 ea 09/24/20 [History Last Taken Unknown] aspirin 81 mg tablet,delayed release 81 mg PO DAILY 09/24/20 [History Last Taken Unknown] blood pressure monitor (Blood Pressure Kit) #1 ea 09/24/20 [History Last Taken Unknown] blood sugar diagnostic (Accu-Chek Christi Plus test strips) #10 ea 09/24/20 [History Last Taken Unknown] blood-glucose meter #1 ea 09/24/20 [History Last Taken Unknown] lancets (Accu-Chek Softclix Lancets) #100 ea 09/24/20 [History Last Taken Unknown] vit C,E,zinc,Bt-egwei-0-lutein-zeaxanthin 250 mg-2.5 mg-0.5 mg capsule 1 cap PO DAILY 09/24/20 [History Last Taken Unknown] latanoprost 0.005 % eye drops 1 drp ophthalmic (eye) PRN PRN MACULAR DEGENRATION 02/24/21 [History Last Taken Unknown] simethicone 80 mg chewable tablet 80 mg PO 4X/DAY PRN Flatulence #30 tabs 12/07/21 [Rx Last Taken Unknown] vitamin E 268 mg (400 unit) capsule 800 unit PO DAILY #60 caps 02/08/22 [Rx Last Taken Unknown] Bilateral wrist splints #2 ea 06/07/22 [Rx Last Taken Unknown] Trulicity 4.5 mg/0.5 mL subcutaneous pen injector (dulaglutide) 4.5 mg (0.5 mL) subcut QWEEK #2 mL 07/27/22 [Rx Last Taken Unknown] pen needle, diabetic 32 gauge x 1/4 (Novofine 32) #200 ea 07/27/22 [Rx Last Taken Unknown] cholestyramine (with sugar) 4 gram oral powder 4 g PO DAILY #348.6 grams 08/12/22 [Rx Last Taken Unknown] fluticasone propionate 50 mcg/actuation nasal spray,suspension 2 spray intranasal PRN PRN Nasal Congestion 09/06/22 [History Last Taken Unknown] ursodiol 250 mg tablet See Rx Instructions .Route .COMPLEX #180 tabs 10/14/22 [Rx Last Taken Unknown] lisinopril 2.5 mg tablet See Rx Instructions .Route .COMPLEX #90 TABLETS 10/26/22 [Rx Last Taken Unknown] pantoprazole 40 mg tablet,delayed release 40 mg PO BID #180 tabs 01/04/23 [Rx Last Taken Unknown] ezetimibe 10 mg tablet (Zetia) 10 mg PO DAILY #60 tabs 02/28/23 [Rx Last Taken Unknown] insulin lispro 100 unit/mL subcutaneous pen (Humalog KwikPen (U-100) Insulin) 12 unit subcut TID 02/28/23 [History Last Taken Unknown] Jardiance 10 mg tablet (empagliflozin) 10 mg PO DAILY #30 tabs 03/14/23 [Rx Last Taken Unknown] denosumab 60 mg/mL subcutaneous syringe (Prolia) 60 mg subcut [id number] #1 mL 03/17/23 [Rx Last Taken Unknown] insulin degludec 100 unit/mL (3 mL) subcutaneous pen (Tresiba FlexTouch U-100 insulin) 40 unit (0.4 mL) subcut QHS #36 mL 07/11/23 [Rx Last Taken Unknown] duloxetine 60 mg capsule,delayed release See Rx Instructions .Route .COMPLEX #180 caps 08/01/23 [Rx Last Taken Unknown] cholecalciferol (vitamin D3) 1,250 mcg (50,000 unit) capsule 1,250 mcg PO QWEEK #30 caps 08/22/23 [Rx Last Taken Unknown] amitriptyline 100 mg tablet 200 mg (2 x 100 mg) PO QHS #180 tabs 08/23/23 [Rx Last Taken Unknown] buspirone 10 mg tablet 10 mg PO TID #270 tabs 08/23/23 [Rx Last Taken Unknown] cyclobenzaprine 10 mg tablet 5 - 10 mg (0.5 - 1 x 10 mg) PO TID PRN muscle spasm #270 tabs 08/23/23 [Rx Last Taken Unknown] loratadine 10 mg tablet 10 mg PO DAILY #90 tabs 08/23/23 [Rx Last Taken Unknown] pregabalin 150 mg capsule 150 mg PO BID #180 caps 08/23/23 [Rx Last Taken Unknown] rimegepant 75 mg disintegrating tablet (Nurtec ODT) 75 mg PO DAILY PRN migraine headache #8 tabs 08/23/23 [Rx Last Taken Unknown] albuterol sulfate 90 mcg/actuation aerosol inhaler (Ventolin HFA) 1 - 2 puff inhalation Q4H PRN PRN Wheezing #1 inh 09/11/23 [Rx Last Taken Unknown] oxycodone-acetaminophen 5 mg-325 mg tablet 1 tab PO Q6H PRN PRN Pain 3 days #12 TABLETS 09/13/23 [Rx Last Taken Unknown] prednisone 20 mg tablet 40 mg (2 x 20 mg) PO DAILY 5 days #10 TABLETS 09/13/23 [Rx Last Taken Unknown] Allergy/AdvReac Type Severity Reaction Status Date / Time saliva substitute Allergy Severe Angioedema Verified 09/20/23 09:31 combination no.9 [From [employer] [facility]] gemfibrozil AdvReac Severe Myalgia Verified 09/20/23 09:31 [id number] Reductase AdvReac Severe muscle pain Verified 09/20/23 09:31 Inhibitor Family History Brother Diabetes Mother Diabetes Heart disease Hypertension Grandmother Diabetes Sister Diabetes Heart disease Hypertension Thyroid disorder Father Kidney disease Grandfather Kidney disease Surgical History H/O: hysterectomy History of bilateral knee arthroplasty History of cholecystectomy History of esophagogastroduodenoscopy (EGD) Hx of colonoscopy Social History Smoking Status: Never smoker second hand exposure: No alcohol intake: never substance use type: does not use yessenia/advent: Sabianist seatbelt use: always ROS ROS ED Constitutional Constitutional ED: Reports fever(s); Denies chills Eyes Eyes: Denies change in vision or discharge from eye(s) ENT ENT ED: Denies discharge from eye(s), rhinorrhea or sore throat Cardiovascular Cardiovascular: Reports chest pain; Denies palpitations Respiratory/Chest Respiratory/Chest: Reports cough and dyspnea Gastrointestinal Gastrointestinal: Denies abdominal pain, nausea or vomiting Genitourinary Genitourinary ED: Denies dysuria Musculoskeletal Musculoskeletal: Reports extremity pain; Denies back pain Integumentary Denies Abrasions or rash Neurologic Neurologic: Denies headache(s) or weakness Psychiatric Psychiatric: Denies anxiety or depression Allergic/Immunologic Allergic/Immunologic ED: Denies lip swelling or urticaria EXAM Physical Exam Const Vital Signs: 09/20/23 09:31 09/20/23 09:35 09/20/23 09:37 Temperature 98.5 F 98.5 F Temperature Source Oral Oral Pulse Rate 109 H 109 H Respiratory Rate 20 H 22 H Respiratory Effort Respiratory Pattern Blood Pressure 152/112 H 152/112 H Blood Pressure Mean 125 125 Pulse Ox 76 90 95 Oxygen Delivery Method Room Air Nasal Cannula Nasal Cannula Oxygen Flow Rate (L/min) 6 6 09/20/23 10:06 09/20/23 10:21 Temperature Temperature Source Pulse Rate 107 H Respiratory Rate 30 H Respiratory Effort Short of Breath Respiratory Pattern Tachypnea Blood Pressure Blood Pressure Mean Pulse Ox Oxygen Delivery Method Oxygen Flow Rate (L/min) Positive obese Nutritional Appearance: obese HEENT Reports dry mucous membranes Mouth ED: Yes dry mucous membranes Mouth: dry mucous membranes Eyes EOMs intact bilaterally Chest Wall inspection of chest normal and palpation of chest normal Resp Resp Narrative: Tachypnea with mild decreased air movement bilaterally. Cardio Rate: tachycardic GI non-tender Palpation: soft Extremity Extremity Narrative: Bilateral lower extremity edema. Increased edema to the left foot with some mild erythema over the MTP joints. No open wounds. Neuro oriented x3 and no sensory deficits noted Psych mental status grossly normal MDM MDM MDM Narrative Medical decision making narrative: At the time of my examination patient is on 6 L nasal cannula and satting 95%. She states she does have home oxygen that she can use as needed and typically only uses 2 L. Patient placed on director of cardiac rehabilitation. IV line established. Labwork obtained to evaluate for leukocytosis, anemia, and electrolyte derangement. EKG obtained to evaluate for cardiac arrhythmia/ischemia. Chest x-ray obtained to evaluate for acute lung pathology, cardiac size, or mediastinal abnormality. Aerosol treatments provided. History & Record Review Discussion w/independent historian: EMS personnel and Patient Additional record(s) reviewed:: Prior ED visit and Prior labs Lab Data Attestation: I reviewed the patient's lab results. Labs: Laboratory Results - last 24 hr 09/20/23 10:00 WBC 8.7 RBC 4.06 L Hgb 12.1 Hct 37.5 MCV 92.4 MCH 29.8 MCHC 32.3 RDW Std Deviation 50.9 H RDW Coeff of Paulo 15.0 H Plt Count 283 MPV 10.0 Immature Gran % (Auto) 1.400 H Neut % (Auto) 76.2 H Lymph % (Auto) 10.4 L Mercer % (Auto) 10.4 H Eos % (Auto) 1.3 Baso % (Auto) 0.3 Absolute Neuts (auto) 6.6 Absolute Lymphs (auto) 0.90 Nucleated RBC % 0 D-Dimer Quant (PE/DVT) 1.63 H* Sodium 139 Potassium 4.0 Chloride 108 H Carbon Dioxide 26.0 Anion Gap 5 BUN 22 H Creatinine 1.28 H Estim Creat Clear Calc 31.74 Est GFR (MDRD) Af Amer 53 L Est GFR (MDRD) Non-Af 44 L BUN/Creatinine Ratio 17.2 Glucose 162 H Lactic Acid 1.2 Calcium 9.9 Total Bilirubin 0.40 Direct Bilirubin 0.08 AST 17 ALT 29 Alkaline Phosphatase 161 H Troponin I High Sens 522 H* B-Natriuretic Peptide 226.2 H Total Protein 7.2 Albumin 3.1 L Globulin 4.1 Radiography Chest X-Ray - ED: 1 View, Read by ED Physician and Chronic Changes Diagnostic Testing: Clinical Impression(s) from Imaging Studies Chest X-Ray 09/20/23 10:40 IMPRESSION: Persistent bibasilar atelectasis, no interval change since the previous study Electronically Signed: Chencho Desai MD at 11:04 EST Reading Location ID and State: [address] [place] [address] , Service support , EKG Initial EKG: Attestation: I personally reviewed and interpreted this EKG as follows: Interpretation: Sinus Tachycardia (Tach at 106 with no evidence of acute ischemia.) Treatment and Re-Evaluation :: CBC reveals white count of 8.7 with a hemoglobin of 12.1. 76% neutrophils noted. Chemistry studies reveal a BUN of 22 and creatinine 1.28. This appears consistent with her prior values. Glucose is 162. Troponin is elevated at 522 and D-dimer is 1.63. BNP is 226. Lactic acid is normal at 1.2. Portable chest x-ray per my interpretation reveals chronic changes. Radiology interpretation reviewed. EKG is sinus tach at 106. Patient sent for CTA of the chest. On my interpretation of the CTA she does have large pulmonary emboli noted. She has started on a heparin bolus and drip. Patient's COVID test does come back positive. Patient has been updated with her test results and will be admitted. I will speak with the hospitalist. Discharge Plan Triage Chief Complaint: Shortness of Breath ED Provider: Allegra Juan Dx/Rx/DC Orders Clinical Impression: COVID-19, Respiratory failure, Elevated troponin, Pulmonary emboli Prescriptions: No Action (DME) lancets [Accu-Chek Softclix Lancets] Misc See Rx Instructions .ROUTE .MEDSUPPLY Qty: 100 Rx Instructions: As directed, Test 4 times daily before meals and at bedtime (DME) Accu-Chek Christi Plus test strp Strip See Rx Instructions .ROUTE .MEDSUPPLY Qty: 10 Rx Instructions: As directed; Test 4 times daily before meals and at bedtime vit C,E,zinc,Jv-flttl-8-lutein-zeaxanthin 250 mg-2.5 mg-0.5 mg capsule 250-2.5-0.5 mg capsule 1 cap PO DAILY (DME) CPAP See Rx Instructions .Route .MEDSUPPLY Qty: 1 Rx Instructions: 14 cm H2O (DME) blood-glucose meter Misc See Rx Instructions .ROUTE .MEDSUPPLY Qty: 1 Rx Instructions: As directed (DME) blood pressure monitor [Blood Pressure Kit] Kit See Rx Instructions .ROUTE .MEDSUPPLY Qty: 1 Rx Instructions: As directed aspirin 81 mg tablet,delayed release (DR/EC) 81 mg PO DAILY latanoprost 0.005 % drops 1 drp ophthalmic (eye) PRN PRN (Reason: MACULAR DEGENRATION) vitamin E 400 unit capsule 800 unit PO DAILY Qty: 60 5RF (DME) pen needle, diabetic [Novofine 32] 32 gauge x 1/4 needle See Rx Instructions .ROUTE .MEDSUPPLY Qty: 200 6RF Rx Instructions: As directed; 4x/day Trulicity 4.5 mg/0.5 mL pen injector 4.5 mg subcut QWEEK Qty: 2 4RF (DME) Bilateral wrist splints See Rx Instructions .Route .MEDSUPPLY Qty: 2 0RF Rx Instructions: As directed insulin lispro [Humalog KwikPen Insulin] 100 unit/mL insulin pen 12 unit subcut TID Rx Instructions: 12u with meals, 6u with snacks. +SSI 180-210+2; 211-240+3; 241-300+5; >300 +7 MDD 50 pantoprazole 40 mg tablet,delayed release (DR/EC) 40 mg PO BID Qty: 180 1RF buspirone 10 mg tablet 10 mg PO TID Qty: 270 1RF loratadine 10 mg tablet 10 mg PO DAILY Qty: 90 1RF amitriptyline 100 mg tablet 200 mg PO QHS Qty: 180 1RF Nurtec ODT 75 mg tablet,disintegrating 75 mg PO DAILY PRN (Reason: migraine headache) Qty: 8 5RF pregabalin 150 mg capsule 150 mg PO BID Qty: 180 1RF cyclobenzaprine 10 mg tablet 5 - 10 mg PO TID PRN (Reason: muscle spasm) Qty: 270 1RF fluticasone propionate 50 mcg/actuation spray,suspension 2 spray INTRANASAL PRN PRN (Reason: Nasal Congestion) Rx Instructions: administer into each nostril albuterol sulfate [Ventolin HFA] 90 mcg/actuation HFA aerosol inhaler 1 - 2 puff inhalation Q4H PRN PRN (Reason: Wheezing) Qty: 1 0RF prednisone 20 mg tablet 40 mg PO DAILY 5 Days Qty: 10 0RF oxycodone-acetaminophen [oxycodone-acetaminophen] 5-325 mg tablet 1 tab PO Q6H PRN PRN (Reason: Pain) 3 Days Qty: 12 0RF simethicone 80 mg tablet,chewable 80 mg PO 4X/DAY PRN (Reason: Flatulence) Qty: 30 1RF cholestyramine (with sugar) 4 gram powder 4 g PO DAILY Qty: 348.6 0RF Rx Instructions: administer w/meal; avoid other meds within 1hr before or 4-6hr after dose ursodiol 250 mg tablet See Rx Instructions .ROUTE .COMPLEX Qty: 180 3RF Dose Instruction: TAKE 1 TABLET BY MOUTH TWICE DAILY Rx Instructions: TAKE 1 TABLET BY MOUTH TWICE DAILY lisinopril 2.5 mg tablet See Rx Instructions .ROUTE .COMPLEX Qty: 90 2RF Dose Instruction: TAKE 1 TABLET BY MOUTH EVERY DAY Rx Instructions: TAKE 1 TABLET BY MOUTH EVERY DAY ezetimibe [Zetia] 10 mg tablet 10 mg PO DAILY Qty: 60 2RF Jardiance 10 mg tablet 10 mg PO DAILY Qty: 30 6RF Prolia 60 mg/mL syringe 60 mg subcut [id number] Qty: 1 0RF Tresiba FlexTouch U-100 100 unit/mL (3 mL) insulin pen 40 unit SC QHS Qty: 36 1RF duloxetine 60 mg capsule,delayed release(DR/EC) See Rx Instructions .ROUTE .COMPLEX Qty: 180 1RF Dose Instruction: TAKE 2 CAPSULES BY MOUTH DAILY Rx Instructions: TAKE 2 CAPSULES BY MOUTH DAILY cholecalciferol (vitamin D3) 1,250 mcg (50,000 unit) capsule 1,250 mcg PO QWEEK Qty: 30 1RF Primary Care Provider: Vamsi Epperson Referrals: Vamsi Epperson MD [Primary Care Provider] - Disposition Disposition: Acute Care Hospital [facility]
[2023-09-20] MEDS: Ipratropium/Albuterol Sulfate 3 ML AMPUL.NEB INHALATION (10:08)
[2023-09-20 10:14] LABS: Absolute Neutrophil Count 6.6 X10^3/uL (2.0-7.7); Basophil# 0.03 X10^3/uL; Basophil% 0.3 % (0-1); Eosinophil# 0.11 X10^3/uL; Eosinophils% 1.3 % (0-5); Hematocrit 37.5 % (37-47); Hemoglobin 12.1 g/dL (12.0-15.0); Lymphocyte % 10.4 % (19-41); Mean Corp Hgb Conc 32.3 g/dL (32-36); Mean Corpuscular Hgb 29.8 pg (27.0-32.0); Mean Corpuscular Volume 92.4 fL (81-99); Monocyte% 10.4 % (0-10); NRBC Flagged by Analyzer 0 % (0-5); Neutrophil % 76.2 % (47-70); Platelet Count 283 K/mm3 (150-450); RBC Distribution Width SD 50.9 fl (35.1-43.9); Red Blood Count 4.06 M/mm3 (4.2-5.4); White Blood Count 8.7 K/mm3 (4.4-11.0)
[2023-09-20] MEDS: Albuterol 2.5 MG/3 ML VIAL.NEB. INHALATION ×2 (10:15→10:19)
[2023-09-20 10:26] LABS: BNP,B-Type NATRIURETIC PEPTIDE 226.2 pg/mL (0-100)
[2023-09-20 10:28] LABS: D-Dimer Quantitative (DVT/PE) 1.63 FEU/ug/m (0.27-0.49)
--- NOTE | 2023-09-20 10:29 | ED.RN ---
d dimer 1.63. dr notrh
[2023-09-20 10:34] LABS: AST(SGOT) 17 U/L (15-37); Alanine Aminotransfer ALT/SGPT 29 U/L (13-56); Albumin, Serum 3.1 g/dL (3.2-5.0); Alkaline Phosphatase 161 U/L (45-117); Anion Gap 5 (5-15); BUN 22 mg/dL (7-18); BUN/Creat Ratio 17.2 RATIO (10-20); Bilirubin, Direct 0.08 mg/dL (0.00-0.30); Calcium,Total 9.9 mg/dL (8.5-10.1); Chloride 108 mmol/L (98-107); Creatinine, Serum 1.28 mg/dL (0.55-1.02); EST Glomerular Filtration Rate 44 mL/min (>60); Est Glom Filt Rate - Afr Amer 53 mL/min (>60); Estimated Creatinine Clearance 31.74 ml/min; Globulin 4.1 g/dL (2.2-4.2); Glucose 162 mg/dL (74-106); Lactic Acid 1.2 mmol/L (0.4-1.9); Protein, Total 7.2 g/dL (6.4-8.2); Sodium Level 139 mmol/L (136-145); Troponin-I HS (w/2H Reflex) 522 pg/mL (3.0-54.0)
--- NOTE | 2023-09-20 10:40 | RAD_ITS ---
STUDY: X-RAY CHEST REASON FOR EXAM: Female, 68 years old. sob TECHNIQUE: Single AP portable view of the chest. COMPARISON: 09/11/2023 FINDINGS: EKG leads overlie the chest Lungs are expanded with persistent bibasilar atelectatic changes, no interval change since the previous study. Normal size heart. Normal mediastinum and khai. Normal visualized pulmonary arteries. Normal visualized aortic arch and descending thoracic aorta. There are diffuse degenerative changes of the visualized thoracic spine. Normal visualized ribs, clavicles, and shoulders. There is no demonstrated abnormality of the visualized soft tissue structures of the upper abdomen. RAD/Chest 1 View (Portable) IMPRESSION: Persistent bibasilar atelectasis, no interval change since the previous study Electronically Signed: Chencho Desai MD at 11:04 EST ,
--- NOTE | 2023-09-20 11:40 | CT_ITS ---
We are attempting to reach an attending provider to discuss findings. An addendum with communication details will be sent when the communication is complete. EXAM: CT ANGIOGRAPHY CHEST WITHOUT AND WITH INTRAVENOUS CONTRAST CLINICAL INDICATION: pulmonary embolism TECHNIQUE: Helically acquired angiography images were obtained of the chest without and with intravenous contrast. This CT exam was performed using one or more of the following dose reduction techniques: automated exposure control, adjustment of the mA and/or kV according to patient size, and/or use of iterative reconstruction technique. MIP reconstructed images were created and reviewed. CONTRAST: IV 100mL Isovue-370 RADIATION DOSE: CTDIvol = 14.98 mGy, DLP = 523.92 mGy-cm COMPARISON: No relevant prior studies available. FINDINGS: PULMONARY ARTERIES: Abnormal intraluminal filling defect in the posterior aspect of the right main pulmonary artery bifurcation extending to the right upper lobe and right lower lobe pulmonary arteries. Normal in caliber. AORTA: Unremarkable. Normal in caliber. No evidence of dissection. GREAT VESSELS OF AORTIC ARCH: Unremarkable. Normal in caliber. No evidence of dissection. LUNGS AND PLEURAL SPACES: Peripheral peribronchial wall thickening in the lower lobes. Partial atelectasis in the left peripheral lung base. HEART: Unremarkable. Heart size is normal. No pericardial effusion. No significant coronary artery calcifications. MEDIASTINUM: Unremarkable. No mediastinal or hilar adenopathy. Esophagus is unremarkable. No hiatal hernia. THYROID: Unremarkable. No thyroid lesions. BONES/JOINTS: Unremarkable. No suspicious lytic or blastic abnormality. CT/CTA Chest W/WO Contrast IMPRESSION: 1. Positive for pulmonary thromboemboli in the right main pulmonary artery bifurcation extending to the right upper lobe and right lower lobe pulmonary arteries. 2. No CT evidence of right heart strain. 3. No CTA evidence of thoracic aortic aneurysm or dissection. 4. Surgical clips in the right upper quadrant of the abdomen from previous cholecystectomy. Electronically Signed: Hesham Funes MD at 12:09 EST ,
--- NOTE | 2023-09-20 12:06 | HP.PCM_ITS ---
HPI - General General Date of Admission: 09/20/23 Date of Service: 09/20/23 Chief Complaint: shortness of breath HPI Narrative YVES NIÑO, is a 68 F with a PMH as outlined who presents via the ED on 09/20/2023 with a complaint of shortness of breath. Her symptoms had been going on for over a week. She had been seen in the ED on 09/11/2023 for similar symptoms and associated chest heaviness. Workup then was reported as unremarkable. She was subsequently seen in the ED again for gout and discharged home on po prednisone and oxycodone. SHortness of breath however persisted so she came into the ED. She had an associated cough. Patient has oxygen at home that she uses for shortness of breath as needed. Upon arrival in the ED she was saturating at 76% on room air. She had also had a fever at home. Vitals with temperature of 98.5 Fahrenheit with pulse rate of 107, blood pressure 152/112 and respiratory rate of 30. She was saturating at 95% on 6 L of oxygen. CBC was unremarkable. Initial D-dimer was 1.63. Chemistry was significant for creatinine of 1.28 and initial troponin of 522. BNP was due to 6.2. CTA of the chest per my review showed large pulmonary emboli in the right main pulmonary artery and its branches. She has been admitted to be managed for acute hypoxic respiratory failure due to submassive PE with evidence of right heart strain. [facility] Medical History Abnormal thyroid function test Anemia Anxiety Anxiety and depression Arthritis Back pain Bilateral lower extremity edema Blackout Chronic neck and back pain CKD (chronic kidney disease), stage III CPAP (continuous positive airway pressure) dependence Depression Diabetes Dietary restriction Difficulty balancing when standing Difficulty swallowing Dizziness Essential hypertension Fatigue Fatty liver Fibromyalgia Fibrosis of liver Flu vaccine need GERD (gastroesophageal reflux disease) Glaucoma Gout Hematuria High cholesterol History of echocardiogram History of pain when walking History of renal disease History of stress test History of thyroid nodule Hx of phlebitis Hyperlipidemia Insomnia Insulin dependent diabetes mellitus Leg cramps Limb weakness Liver disease Loss of hearing Lyme disease Macular degeneration Migraine headache Morbid obesity Myositis Non-smoker Obesity [place] on CPAP Osteoporosis Polymyositis Restless legs Sensorineural hearing loss of both ears Shoulder pain Sinusitis Type 2 diabetes mellitus Vitamin D deficiency Wears glasses Home Medications CPAP #1 ea 09/24/20 [History Last Taken Unknown] aspirin 81 mg tablet,delayed release 81 mg PO DAILY 09/24/20 [History Last Taken Unknown] blood pressure monitor (Blood Pressure Kit) #1 ea 09/24/20 [History Last Taken Unknown] blood sugar diagnostic (Accu-Chek Christi Plus test strips) #10 ea 09/24/20 [Hist ory Last Taken Unknown] blood-glucose meter #1 ea 09/24/20 [History Last Taken Unknown] lancets (Accu-Chek Softclix Lancets) #100 ea 09/24/20 [History Last Taken Unknown] vit C,E,zinc,Zi-fnfsf-9-lutein-zeaxanthin 250 mg-2.5 mg-0.5 mg capsule 1 cap PO DAILY 09/24/20 [History Last Taken Unknown] latanoprost 0.005 % eye drops 1 drp ophthalmic (eye) PRN PRN MACULAR DEGENRATION 02/24/21 [History Last Taken Unknown] simethicone 80 mg chewable tablet 80 mg PO 4X/DAY PRN Flatulence #30 tabs 12/07/21 [Rx Last Taken Unknown] vitamin E 268 mg (400 unit) capsule 800 unit PO DAILY #60 caps 02/08/22 [Rx Last Taken Unknown] Bilateral wrist splints #2 ea 06/07/22 [Rx Last Taken Unknown] Trulicity 4.5 mg/0.5 mL subcutaneous pen injector (dulaglutide) 4.5 mg (0.5 mL) subcut QWEEK #2 mL 07/27/22 [Rx Last Taken Unknown] pen needle, diabetic 32 gauge x 1/4 (Novofine 32) #200 ea 07/27/22 [Rx Last Taken Unknown] cholestyramine (with sugar) 4 gram oral powder 4 g PO DAILY #348.6 grams 08/12/22 [Rx Last Taken Unknown] fluticasone propionate 50 mcg/actuation nasal spray,suspension 2 spray intranasal PRN PRN Nasal Congestion 09/06/22 [History Last Taken Unknown] ursodiol 250 mg tablet See Rx Instructions .Route .COMPLEX #180 tabs 10/14/22 [Rx Last Taken Unknown] lisinopril 2.5 mg tablet See Rx Instructions .Route .COMPLEX #90 TABLETS 10/26/22 [Rx Last Taken Unknown] pantoprazole 40 mg tablet,delayed release 40 mg PO BID #180 tabs 01/04/23 [Rx Last Taken Unknown] ezetimibe 10 mg tablet (Zetia) 10 mg PO DAILY #60 tabs 02/28/23 [Rx Last Taken Unknown] insulin lispro 100 unit/mL subcutaneous pen (Humalog KwikPen (U-100) Insulin) 12 unit subcut TID 02/28/23 [History Last Taken Unknown] Jardiance 10 mg tablet (empagliflozin) 10 mg PO DAILY #30 tabs 03/14/23 [Rx Last Taken Unknown] denosumab 60 mg/mL subcutaneous syringe (Prolia) 60 mg subcut [id number] #1 mL 03/17/23 [Rx Last Taken Unknown] insulin degludec 100 unit/mL (3 mL) subcutaneous pen (Tresiba FlexTouch U-100 insulin) 40 unit (0.4 mL) subcut QHS #36 mL 07/11/23 [Rx Last Taken Unknown] duloxetine 60 mg capsule,delayed release See Rx Instructions .Route .COMPLEX #180 caps 08/01/23 [Rx Last Taken Unknown] cholecalciferol (vitamin D3) 1,250 mcg (50,000 unit) capsule 1,250 mcg PO QWEEK #30 caps 08/22/23 [Rx Last Taken Unknown] amitriptyline 100 mg tablet 200 mg (2 x 100 mg) PO QHS #180 tabs 08/23/23 [Rx Last Taken Unknown] buspirone 10 mg tablet 10 mg PO TID #270 tabs 08/23/23 [Rx Last Taken Unknown] cyclobenzaprine 10 mg tablet 5 - 10 mg (0.5 - 1 x 10 mg) PO TID PRN muscle spasm #270 tabs 08/23/23 [Rx Last Taken Unknown] loratadine 10 mg tablet 10 mg PO DAILY #90 tabs 08/23/23 [Rx Last Taken Unknown] pregabalin 150 mg capsule 150 mg PO BID #180 caps 08/23/23 [Rx Last Taken Unknown] rimegepant 75 mg disintegrating tablet (Nurtec ODT) 75 mg PO DAILY PRN migraine headache #8 tabs 08/23/23 [Rx Last Taken Unknown] albuterol sulfate 90 mcg/actuation aerosol inhaler (Ventolin HFA) 1 - 2 puff inhalation Q4H PRN PRN Wheezing #1 inh 09/11/23 [Rx Last Taken Unknown] oxycodone-acetaminophen 5 mg-325 mg tablet 1 tab PO Q6H PRN PRN Pain 3 days #12 TABLETS 09/13/23 [Rx Last Taken Unknown] prednisone 20 mg tablet 40 mg (2 x 20 mg) PO DAILY 5 days #10 TABLETS 09/13/23 [Rx Last Taken Unknown] Allergy/AdvReac Type Severity Reaction Status Date / Time saliva substitute Allergy Severe Angioedema Verified 09/20/23 09:31 combination no.9 [From Immunity Project [facility]] gemfibrozil AdvReac Severe Myalgia Verified 09/20/23 09:31 Pdfnbfr-ULY-BmA Reductase AdvReac Severe muscle pain Verified 09/20/23 09:31 Inhibitor Family History Brother Diabetes Mother Diabetes Heart disease Hypertension Grandmother Diabetes Sister Diabetes Heart disease Hypertension Thyroid disorder Father Kidney disease Grandfather Kidney disease Surgical History H/O: hysterectomy History of bilateral knee arthroplasty History of cholecystectomy History of esophagogastroduodenoscopy (EGD) Hx of colonoscopy Social History Smoking Status: Never smoker second hand exposure: No alcohol intake: never substance use type: does not use yessenia/religious: Nondenominational seatbelt use: always ROS Review of Systems ROS Unobtainable: Denies due to encephalopathy Constitutional Constitutional: Reports malaise and weakness; Denies anorexia, chills, fatigue or fever(s) Eyes Eyes: Denies change in vision ENT HEENT: Denies dysphagia, epistaxis, headache(s), sore throat or throat swelling Cardiovascular Cardiovascular: Reports chest pain, orthopnea, palpitations and paroxysmal nocturnal dyspnea; Denies edema or syncope Respiratory/Chest Respiratory/Chest: Reports cough, shortness of breath at rest and shortness of breath with exertion; Denies wheezing Gastrointestinal Gastrointestinal: Denies abdominal pain, constipation, diarrhea, nausea or vomiting Musculoskeletal Musculoskeletal: Denies muscle weakness Integumentary Integumentary: Denies dry skin Neurologic Neurologic: Denies confusion, dizziness, focal weakness, headache(s) or numbness Psychiatric Psychiatric: Denies anxiety or depression Endocrine Endocrinology: Denies change in body appearance Hematologic/Lymphatic Hematologic/Lymphatic: Denies anemia Vital Signs Vital Signs Vital Signs: 09/20/23 09:31 09/20/23 09:35 09/20/23 09:37 Temperature 98.5 F 98.5 F Temperature Source Oral Oral Pulse Rate 109 H 109 H Respiratory Rate 20 H 22 H Respiratory Effort Respiratory Pattern Blood Pressure 152/112 H 152/112 H Blood Pressure Mean 125 125 Pulse Ox 76 90 95 Oxygen Delivery Method Room Air Nasal Cannula Nasal Cannula Oxygen Flow Rate (L/min) 6 6 09/20/23 10:06 09/20/23 10:21 Temperature Temperature Source Pulse Rate 107 H Respiratory Rate 30 H Respiratory Effort Short of Breath Respiratory Pattern Tachypnea Blood Pressure Blood Pressure Mean Pulse Ox Oxygen Delivery Method Oxygen Flow Rate (L/min) Weight Weight: 234 lb 5.622 oz Body Mass Index (BMI) 44.2 Physical Exam Const alert, oriented x3 and no apparent distress General Appearance: cooperative and well developed HEENT normocephalic, head/scalp atraumatic, moist oral mucous membranes and oropharynx normal Eyes PERRL and EOMs intact bilaterally Neck no lymphadenopathy, supple and no JVD Resp Resp Narrative: on 6L of oxygen by nasal canula. diminished breath sounds bibasally, no wheezes or crackles. Cardio regular rate, regular rhythm, S1 normal heart sound, S2 normal heart sound and no murmurs GI normal to inspection, nondistended, normoactive bowel sounds, soft to palpation and non-tender Extremity normal capillary refill, no clubbing, cyanosis or edema and no calf tenderness General Extremity: no tenderness to palpation of joints or extremities Skin General Skin Exam: no breakdown Neuro CN's II-XII intact bilaterally, no focal motor deficits, no sensory deficits noted and deep tendon reflexes 2+ bilaterally Psych thought process normal, cooperative and affect normal Appearance: appropriate Results Lab / Micro Data 09/20/23 10:00 09/20/23 10:00 Labs: Laboratory Results - last 24 hr 09/20/23 10:00: WBC 8.7, RBC 4.06 L, Hgb 12.1, Hct 37.5, MCV 92.4, MCH 29.8, MCHC 32.3, RDW Std Deviation 50.9 H, RDW Coeff of Paulo 15.0 H, Plt Count 283, MPV 10.0, Immature Gran % (Auto) 1.400 H, Neut % (Auto) 76.2 H, Lymph % (Auto) 10.4 L, [place] % (Auto) 10.4 H, Eos % (Auto) 1.3, Baso % (Auto) 0.3, Absolute Neuts (auto) 6.6, Absolute Lymphs (auto) 0.90, Nucleated RBC % 0, D-Dimer Quant (PE/DVT) 1.63 H*, Sodium 139, Potassium 4.0, Chloride 108 H, Carbon Dioxide 26.0, Anion Gap 5, BUN 22 H, Creatinine 1.28 H, Estim Creat Clear Calc 31.74, Est GFR (MDRD) Af Amer 53 L, Est GFR (MDRD) Non-Af 44 L, BUN/Creatinine Ratio 17.2, Glucose 162 H, Lactic Acid 1.2, Calcium 9.9, Total Bilirubin 0.40, Direct Bilirubin 0.08, AST 17, ALT 29, Alkaline Phosphatase 161 H, Troponin I High Sens 522 H*, B-Natriuretic Peptide 226.2 H, Total Protein 7.2, Albumin 3.1 L, Globulin 4.1 Micro: Microbiology 09/20/23 09:56 Nasal Secretion SARS-CoV-2 & FLU Antigen (Rapid) - Final SARS-CoV-2 (COVID 19) Imagaing Radiology Impression Chest X-Ray 09/20/23 10:40 IMPRESSION: Persistent bibasilar atelectasis, no interval change since the previous study Electronically Signed: Chencho Desai MD at 11:04 EST , Assessment & Plan Assessment/Plan (1) Pulmonary emboli: (2) Elevated troponin: (3) Respiratory failure: (4) COVID-19: PLAN: Plan #Acute hypoxic respiratory failure due to submassive PE with right ventricular strain * Admit to PCU * Started on heparin drip. * Check INR. Started on Remdesivir and Decadron also due to COVID. * Get 2D echo. Titrate oxygen to maintain saturation above 90%. * I think the elevated troponin and elevated BNP all due to the submassive PE a nd unnecessarily and non-STEMI. * consult pulmonology * will hold off on cardiology consult for now as elevated troponin may be due to PE; await 2D echo findings, and if it indicates otherwise, will consult cardiology. * #COVID-19 infection: As above. Start on remdesivir and decadron. Breathing treatment with bronchodilators. Titrate oxygen to maintain sats >90% #Submassive PE with right ventricular strain: As above #Type 2 diabetes mellitus on Lantus 40 units nightly. Insulin sliding scale. T actics ACHS. Also on Jardiance. #Hypertension: On lisinopril 2.5 mg daily as well as metoprolol. Also on Trulicity. #Recent diagnosis of gout: On prednisone and oxycodone #History of headaches: Has a history of migraines. On rimegapant. #Depression: On amitriptyline and buspirone DVT prophylaxis: On heparin drip as above CODE STATUS: Full code * Patient counseled extensively about different types of CODE STATUS including full code, DNR CCA and DNR CCA. Patient elects to be full code. * Total [id number] time 17 minutes. Total time spent on evaluation and management of patient, reviewing chart and specialist notes, discussing plan with patient, discussion with nursing and ancillary staff as well as documentation: 75mins Charges/Coding Visit Charges Inpatient E&M: 62305 Init Hosp L3 Procedures Hospitalists Procedures: 69727 Advncd Care Plan 30 Min
[2023-09-20 12:07] LABS: Reflex Troponin-HS? (from REC) Y
[2023-09-20 12:10] LABS: Prothrombin Time (Protime)PT. 13.2 SECONDS (11.7-14.9)
[2023-09-20] MEDS: Heparin Injection (Vial) 5,000 UNIT/ML VIAL 8000 UNIT IV (12:37)
[2023-09-20] MEDS: HEPARIN/D5w 25,000 UNITS 25,000 UNITS/250 ML IV.SOLN. 15 UNITS CONT INF ×2 (12:40→15:22)
[2023-09-20 12:41] LABS: Troponin-I HS 557 pg/mL (3.0-54.0)
--- NOTE | 2023-09-20 12:48 | ECHOD_ITS ---
Reason For Study: EMBOLI Procedure This was a limited 2D transthoracic echocardiogram. Exam performed portable in patient room. The exam was abbreviated due to the COVID 19 protocol. Left Ventricle Mildly dilated left ventricle. The estimated ejection fraction is 45-50 %. Right Ventricle Mildly dilated right ventricle. Mild global right ventricular systolic dysfunction. Atria Normal left atrium. The right atrium is mildly enlarged. Mitral Valve There is mild mitral annular calcification. No mitral valve insufficiency. Tricuspid Valve Normal tricuspid valve. Unable to estimate RV systolic pressure due to insufficient tricuspid regurgitant envelope. Aortic Valve Mild focal aortic valve calcification. Pulmonic Valve The pulmonic valve is not well visualized. Great Vessels Normal aortic root. Pericardium/Pleural No pericardial effusion. MMode/2D Measurements & Calculations LVIDd: 5.2 cm IVSd: 1.2 cm Ao root diam: 3.5 cm LVIDs: 3.7 cm LVPWd: 1.1 cm RVDd: 3.0 cm FS: 28.9 % LAV(MOD-bp): 52.9 ml LVAd ap4: 27.2 cm2 LVAd ap2: 25.6 cm2 LAV(MOD-bp) Indexed: 25.9 ml/m2 LVLd ap4: 8.2 cm LVLd ap2: 7.8 cm LAV(MOD-sp2): 47.9 ml EDV(MOD-sp4): 75.3 ml EDV(MOD-sp2): 69.7 ml LAV(MOD-sp4): 54.7 ml EDV(sp4-el): 76.0 ml EDV(sp2-el): 71.4 ml LVAs ap4: 17.7 cm2 LVAs ap2: 17.3 cm2 LVLs ap4: 7.1 cm LVLs ap2: 7.1 cm ESV(MOD-sp4): 37.9 ml ESV(MOD-sp2): 34.9 ml ESV(sp4-el): 37.6 ml ESV(sp2-el): 35.7 ml EF(MOD-sp4): 49.6 % EF(MOD-sp2): 50.0 % EF(sp4-el): 50.6 % SV(MOD-sp4): 37.4 ml SV(MOD-sp2): 34.8 ml SV(sp4-el): 38.4 ml LA dimension(2D): 3.8 cm LA A4 area: 19.1 cm2 RA A4 area: 14.7 cm2 ECHO/Echo Complete Interpretation Summary The estimated ejection fraction is 45-50 %. Mild LV systolic dysfunction There is mild global LV hypokinesia Mild RV systolic dysfunction with mildly dilated RV. No prior echocardiogram to compare Ordering Physician: Amara Cardenas Referring Physician: Vamsi Epperson Performed By: Melanie Manzo RDCS, RVT
[2023-09-20] MEDS: dexAMETHasone 4 MG Tablet 6 MG PO (15:12)
[2023-09-20] MEDS: Remdesivir 200 MG in 0.9% Normal Saline (250mL Bag) 210 ML 250 MG IV (15:39)
[2023-09-20 15:44] LABS: Alkaline Phosphatase 151 U/L (45-117); Troponin-I HS 509 pg/mL (3.0-54.0)
[2023-09-20 16:00] LABS: Bedside Glucose 113 mg/dL (74-106)
[2023-09-20 16:55] LABS: Troponin-I HS 469 pg/mL (3.0-54.0)
[2023-09-20 20:59] LABS: Troponin-I HS 302 pg/mL (3.0-54.0)
[2023-09-20] MEDS: busPIRone 5 MG Tablet 10 MG PO (22:24)
[2023-09-20] MEDS: Ursodiol 250 MG Tablet PO (22:25)
[2023-09-20] MEDS: Pantoprazole Sodium 40 MG Tablet PO (22:25)
[2023-09-20] MEDS: Amitriptyline 100 MG Tablet 200 MG PO (22:25)
[2023-09-20] MEDS: Pregabalin 75 MG Capsule 150 MG PO (22:26)
[2023-09-20] MEDS: Insulin Glargine-YFGN 100 UNIT/ML Pen 40 UNIT SC (22:27)
[2023-09-20] MEDS: Insulin Lispro 100 UNIT/ML INSULN.PEN SC (22:28)
[2023-09-20 22:54] LABS: Bedside Glucose 154 mg/dL (74-106)
[2023-09-21 03:10] LABS: Absolute Lymphocyte Count 1.68 X10^3/uL (0.83-4.51); Basophil# 0.03 X10^3/uL; Basophil% 0.4 % (0-1); Eosinophil# 0.04 X10^3/uL; Eosinophils% 0.5 % (0-5); Hematocrit 37.1 % (37-47); Hemoglobin 11.3 g/dL (12.0-15.0); Lymphocyte # 1.68 X10^3/ul (0.83-4.51); Lymphocyte % 21.4 % (19-41); Mean Corp Hgb Conc 30.5 g/dL (32-36); Mean Corpuscular Hgb 28.5 pg (27.0-32.0); Mean Corpuscular Volume 93.7 fL (81-99); Mean Platelet Vol. 10.2 fl (6.2-12.0); Monocyte% 12.7 % (0-10); NRBC Flagged by Analyzer 0 % (0-5); Neutrophil # 4.98 X10^3/uL (2.7-7.7); Neutrophil % 63.5 % (47-70); Platelet Count 281 K/mm3 (150-450); RBC Distribution Width CV 15.1 % (11.6-14.6); RBC Distribution Width SD 51.8 fl (35.1-43.9); Red Blood Count 3.96 M/mm3 (4.2-5.4); White Blood Count 7.9 K/mm3 (4.4-11.0)
[2023-09-21 03:34] LABS: ALB/GLOB Ratio 0.7 RATIO (0.9-2.4); AST(SGOT) 22 U/L (15-37); Alanine Aminotransfer ALT/SGPT 26 U/L (13-56); Albumin, Serum 2.9 g/dL (3.2-5.0); Alkaline Phosphatase 151 U/L (45-117); Anion Gap 5 (5-15); BUN 28 mg/dL (7-18); Calcium,Total 9.8 mg/dL (8.5-10.1); Chloride 107 mmol/L (98-107); Creatinine, Serum 1.75 mg/dL (0.55-1.02); EST Glomerular Filtration Rate 31 mL/min (>60); Est Glom Filt Rate - Afr Amer 37 mL/min (>60); Estimated Creatinine Clearance 23.22 ml/min; Globulin 3.9 g/dL (2.2-4.2); Glucose 124 mg/dL (74-106); Potassium 4.5 mmol/L (3.5-5.1); Protein, Total 6.8 g/dL (6.4-8.2); Sodium Level 139 mmol/L (136-145)
[2023-09-21 04:05] VITALS: BP 146/101; PULSE 86; RESP 18; TEMP 36.6; O2SAT 100
[2023-09-21 04:09] VITALS: O2SAT 95
[2023-09-21] MEDS: busPIRone 5 MG Tablet 10 MG PO ×3 (06:19→22:17)
[2023-09-21 09:00] VITALS: BP 140/93; PULSE 87; RESP 20; TEMP 36.9; O2SAT 93
[2023-09-21 09:02] LABS: Partial Thromboplast Time 56.8 Seconds (24.1-36.2)
[2023-09-21] MEDS: Remdesivir 100 MG in 0.9% Normal Saline (250mL Bag) 230 ML 250 MG IV (09:05)
[2023-09-21] MEDS: 0.9% Saline Lock 10 ML Syringe IV ×2 (09:05→14:52)
[2023-09-21] MEDS: Furosemide 40 MG/4 ML Vial IV (09:05)
[2023-09-21] MEDS: Loratadine 10 MG Tablet PO (09:12)
[2023-09-21] MEDS: Ursodiol 250 MG Tablet PO ×2 (09:12→22:18)
[2023-09-21] MEDS: Pregabalin 75 MG Capsule 150 MG PO ×2 (09:12→22:18)
[2023-09-21] MEDS: Aspirin E.C. 81 MG Tablet PO (09:12)
[2023-09-21] MEDS: Lisinopril 2.5 MG Tablet PO (09:12)
[2023-09-21] MEDS: Ezetimibe 10 MG Tablet PO (09:13)
[2023-09-21] MEDS: DULoxetine Hcl 60 MG Capsule 120 MG PO (09:13)
[2023-09-21] MEDS: Empagliflozin 10 MG Tablet PO (09:13)
[2023-09-21] MEDS: Pantoprazole Sodium 40 MG Tablet PO ×2 (09:13→22:18)
[2023-09-21] MEDS: HEPARIN/D5w 25,000 UNITS 25,000 UNITS/250 ML IV.SOLN. 13 UNITS CONT INF (09:17)
[2023-09-21 09:36] LABS: Bedside Glucose 112 mg/dL (74-106)
--- NOTE | 2023-09-21 10:37 | PCM.PROGNOTE ---
Subjective Subjective Patient seen and examined. She is starting to feel better. She is on 4L of oxygen. Review of systms is otherwise negative. Objective Data Objective Data Vital Signs: Vital Signs Temp Pulse Resp BP Pulse Ox O2 Del Method O2 Flow Rate 98.4 F 87 20 H 140/93 H 93 Nasal Cannula 4 09/21/23 09:00 09/21/23 09:00 09/21/23 09:00 09/21/23 09:00 09/21/23 09:00 09/21/23 09:00 09/21/23 09:00 Oxygen Flow Rate (L/min) 4 Oxygen Delivery Method Nasal Cannula Weight: 229 lb 8.019 oz Body Mass Index (BMI) 43.3 Intake & Output: Intake and Output for Last 24 Hours 09/19/23 09/20/23 09/21/23 23:59 23:59 23:59 Intake Total 914.75 / 914.75 282.5 / 282.5 Balance 914.75 / 914.75 282.5 / 282.5 Lab / Micro Data 09/21/23 02:54 09/21/23 02:54 Labs: Laboratory Results - last 24 hr 09/20/23 10:00: PT 13.2, INR 1.0, APTT 24.0 L 09/20/23 12:15: Troponin I High Sens 557 H* 09/20/23 14:36: Alkaline Phosphatase 151 H, Troponin I High Sens 509 H* 09/20/23 15:41: POC Glucose 113 H 09/20/23 16:16: Troponin I High Sens 469 H* 09/20/23 18:30: APTT 94.0 H* 09/20/23 20:20: Troponin I High Sens 302 H* 09/20/23 22:18: POC Glucose 154 H 09/21/23 02:54: WBC 7.9, RBC 3.96 L, Hgb 11.3 L, Hct 37.1, MCV 93.7, MCH 28.5, MCHC 30.5 L D, RDW Std Deviation 51.8 H, RDW Coeff of Paulo 15.1 H, Plt Count 281, MPV 10.2, Immature Gran % (Auto) 1.500 H, Neut % (Auto) 63.5, Lymph % (Auto) 21.4, [place] % (Auto) 12.7 H, Eos % (Auto) 0.5, Baso % (Auto) 0.4, Absolute Neuts (auto) 5.0, Absolute Lymphs (auto) 1.68, Nucleated RBC % 0, APTT 66.0 H, Sodium 139, Potassium 4.5, Chloride 107, Carbon Dioxide 27.0, Anion Gap 5, BUN 28 H, Creatinine 1.75 H, Estim Creat Clear Calc 23.22, Est GFR (MDRD) Af Amer 37 L, Est GFR (MDRD) Non-Af 31 L, BUN/Creatinine Ratio 16.0, Glucose 124 H, Calcium 9.8, Total Bilirubin 0.30, AST 22, ALT 26, Alkaline Phosphatase 151 H, Total Protein 6.8, Albumin 2.9 L, Globulin 3.9, Albumin/Globulin Ratio 0.7 L 09/21/23 08:40: APTT 56.8 H 09/21/23 09:04: POC Glucose 112 H Micro: Microbiology 09/20/23 09:56 Nasal Secretion SARS-CoV-2 & FLU Antigen (Rapid) - Final SARS-CoV-2 (COVID 19) Radiography Diagnostic Testing: Radiology Impression Chest X-Ray 09/20/23 10:40 IMPRESSION: Persistent bibasilar atelectasis, no interval change since the previous study Electronically Signed: Chencho Desai MD at 11:04 EST , Chest CTA 09/20/23 11:40 IMPRESSION: 1. Positive for pulmonary thromboemboli in the right main pulmonary artery bifurcation extending to the right upper lobe and right lower lobe pulmonary arteries. 2. No CT evidence of right heart strain. 3. No CTA evidence of thoracic aortic aneurysm or dissection. 4. Surgical clips in the right upper quadrant of the abdomen from previous cholecystectomy. Electronically Signed: Hesham Funes MD at 12:09 EST , ADDENDUM: 09/20/23 1228 IMPRESSION: 1. Positive for pulmonary thromboemboli in the right main pulmonary artery bifurcation extending to the right upper lobe and right lower lobe pulmonary arteries. 2. No CT evidence of right heart strain. 3. No CTA evidence of thoracic aortic aneurysm or dissection. 4. Surgical clips in the right upper quadrant of the abdomen from previous cholecystectomy. N.B. : The above Results were Read Back by Hesham Funes MD to Allegra Juan MD, and understanding confirmed on 09/20/2023 12:21:50 (ET). Electronically Signed: Hesham Funes MD at 12:09 EST , Echocardiogram 09/20/23 12:48 Interpretation Summary The estimated ejection fraction is 45-50 %. Mild LV systolic dysfunction There is mild global LV hypokinesia Mild RV systolic dysfunction with mildly dilated RV. No prior echocardiogram to compare Ordering Physician: Amara Cardenas Referring Physician: Vamsi Epperson Performed By: Melanie Manzo, RDCS, RVT Physical Exam Const alert, oriented x3 and no apparent distress General Appearance: cooperative and well developed HEENT normocephalic, head/scalp atraumatic, moist oral mucous membranes and oropharynx normal Eyes PERRL and EOMs intact bilaterally Neck no lymphadenopathy, supple and no JVD Resp Resp Narrative: on 4 L of oxygen by nasal canula. diminished breath sounds bibasally, no wheezes or crackles. Cardio regular rate, regular rhythm, S1 normal heart sound, S2 normal heart sound and no murmurs GI normal to inspection, nondistended, normoactive bowel sounds, soft to palpation and non-tender Extremity normal capillary refill, no clubbing, cyanosis or edema and no calf tenderness General Extremity: no tenderness to palpation of joints or extremities Skin General Skin Exam: no breakdown Neuro CN's II-XII intact bilaterally, no focal motor deficits, no sensory deficits noted and deep tendon reflexes 2+ bilaterally Motor Exam: strength 5/5 throughout and general weakness Psych thought process normal, cooperative and affect normal Appearance: appropriate Assessment & Plan Assessment/Plan (1) Pulmonary emboli: (2) Elevated troponin: (3) Respiratory failure: (4) COVID-19: PLAN: Plan #Acute hypoxic respiratory failure due to submassive PE with right ventricular strain Remains on heparin drip. Down to 4 L of oxygen. On remdesivir and Decadron for COVID. Troponins trended down. Elevated BNP also likely due to PE 2D echo showed EF of 45 to 50% with mild left ventricular systolic dysfunction and mild global ventricular hypokinesis with mild right ventricular systolic dysfunction with mildly dilated right ventricle. On heparin drip. pulmonology consulted In light of the decreased EF and left ventricular systolic dysfunction, cardiology also consulted. Dr. Elliott Tate informed by phone #COVID-19 infection: As above. Start on remdesivir and decadron. Breathing treatment with bronchodilators. Titrate oxygen to maintain sats >90% #Submassive PE with right ventricular strain: As above #Type 2 diabetes mellitus on Lantus 40 units nightly. Insulin sliding scale. Accuchecks ACHS. Also on Jardiance. #Hypertension: On lisinopril 2.5 mg daily as well as metoprolol. Also on Trulicity. #Recent diagnosis of gout: On prednisone and oxycodone #History of headaches: Has a history of migraines. On rimegapant. #Depression: On amitriptyline and buspirone DVT prophylaxis: On heparin drip as above CODE STATUS: Full code Total time spent on evaluation and management of patient, reviewing chart, discussing plan with patient, discussion with nursing and ancillary staff as well as documentation:42 mins Charges/Coding Visit Charges Inpatient E&M: 58818 [facility] Hosp L3
[2023-09-21] MEDS: RIMEGEPANT SULFATE 75 MG TAB.RAPDIS PO (10:42)
[2023-09-21] MEDS: dexAMETHasone 4 MG Tablet 6 MG PO (10:42)
[2023-09-21] MEDS: Cholestyramine/Sucrose 4 GM/PACKET PO (12:41)
--- NOTE | 2023-09-21 12:51 | EX.PCM.CONCC ---
Assessment & Plan Assessment/Plan (1) Pulmonary emboli: PLAN: Plan RECOMMENDATIONS: 1. Continue supplemental oxygen to maintain saturations at or above 90%. 2. Continue remdesivir and Decadron as ordered. 3. Okay to transition from heparin to either Eliquis or Xarelto, when feasible. 4. Anticipate 3 months of systemic anticoagulation after discharge. 5. Encourage incentive spirometer use and mobilize patient as tolerated. 6. Will sign off at this time. Please call with any additional questions. IMPRESSIONS: 1. Shortness of breath with associated hypoxemia Likely multifactorial in etiology with underlying pulmonary emboli and COVID-19 contributing. I suspect that her pulmonary emboli are likely the consequence of her COVID-19 infection. She does not endorse a history of prior thromboembolic disease or any recent prolonged immobility or travel. Recommend continuing supplemental oxygen to maintain saturations at or above 90%. The patient has already been initiated on remdesivir and Decadron, both of which will be continued. When feasible, the patient can be transition from heparin to either Eliquis or Xarelto. I would anticipate that the patient will require 3 months of therapy. Encourage incentive spirometer use and mobilize patient as tolerated. 2. History of morbid obesity/diabetes mellitus/depression/hypertension/gout Complicates care, management, recovery and prognosis. Continue home medications as indicated. This note was generated with [employer] dictation software. It may contain incorrect words, spelling, and punctuation that were not noted in checking the note before signing. HPI Consult Data Date of Consult: 09/22/23 HPI Narrative Reason for Consultation: Pulmonary embolism HPI Narrative: The patient is a 68-year-old female, with a history as outlined below, who presented to the emergency department on September 20 with progressive shortness of breath. The patient denies any history of venous thromboembolic disease. She denies any recent prolonged immobility or prolonged travel. The patient reported that she does not utilize supplemental oxygen at her baseline. She did report the presence of subjective fevers and chills prior to presentation to the emergency department. On presentation to the emergency department, the patient was noted to be afebrile and hemodynamically stable. She was hypoxemic, saturating 76% on room air. Initial laboratory evaluation revealed no evidence of a leukocytosis. Coagulation profile was notable for a D-dimer of 1.63. Chemistry profile was notable for a creatinine of 1.28. Troponin was elevated at 522 with a BNP of 226. Rapid COVID testing was positive. CTA chest was positive for pulmonary emboli in the right upper and lower lobes. There was no CT evidence of right heart strain. The patient was subsequently admitted to the hospital and has been placed on a continuous heparin infusion along with remdesivir and Decadron. Surface echocardiogram demonstrated a mildly dilated LV with an ejection fraction of 45 to 50%. The RV was mildly dilated with mild global RV systolic dysfunction. Right ventricular systolic pressure was unable to be estimated. [facility] Medical History Abnormal thyroid function test Anemia Anxiety Anxiety and depression Arthritis Back pain Bilateral lower extremity edema Blackout Chronic neck and back pain CKD (chronic kidney disease), stage III CPAP (continuous positive airway pressure) dependence Depression Diabetes Dietary restriction Difficulty balancing when standing Difficulty swallowing Dizziness Essential hypertension Fatigue Fatty liver Fibromyalgia Fibrosis of liver Flu vaccine need GERD (gastroesophageal reflux disease) Glaucoma Gout Hematuria High cholesterol History of echocardiogram History of pain when walking History of renal disease History of stress test History of thyroid nodule Hx of phlebitis Hyperlipidemia Insomnia Insulin dependent diabetes mellitus Leg cramps Limb weakness Liver disease Loss of hearing Lyme disease Macular degeneration Migraine headache Morbid obesity Myositis Non-smoker Obesity BENTLEY on CPAP Osteoporosis Polymyositis Restless legs Sensorineural hearing loss of both ears Shoulder pain Sinusitis Type 2 diabetes mellitus Vitamin D deficiency Wears glasses Home Medications CPAP #1 ea 09/24/20 [History Last Taken Unknown] aspirin 81 mg tablet,delayed release 81 mg PO DAILY 09/24/20 [History Last Taken Unknown] blood pressure monitor (Blood Pressure Kit) #1 ea 09/24/20 [History Last Taken Unknown] blood sugar diagnostic (Accu-Chek Christi Plus test strips) #10 ea 09/24/20 [History Last Taken Unknown] blood-glucose meter #1 ea 09/24/20 [History Last Taken Unknown] lancets (Accu-Chek Softclix Lancets) #100 ea 09/24/20 [History Last Taken Unknown] vit C,E,zinc,Kq-rsldi-3-lutein-zeaxanthin 250 mg-2.5 mg-0.5 mg capsule 1 cap PO DAILY 09/24/20 [History Last Taken Unknown] latanoprost 0.005 % eye drops 1 drp ophthalmic (eye) PRN PRN MACULAR DEGENRATION 02/24/21 [History Last Taken Unknown] simethicone 80 mg chewable tablet 80 mg PO 4X/DAY PRN Flatulence #30 tabs 12/07/21 [Rx Last Taken Unknown] vitamin E 268 mg (400 unit) capsule 800 unit PO DAILY #60 caps 02/08/22 [Rx Last Taken Unknown] Bilateral wrist splints #2 ea 06/07/22 [Rx Last Taken Unknown] Trulicity 4.5 mg/0.5 mL subcutaneous pen injector (dulaglutide) 4.5 mg (0.5 mL) subcut QWEEK #2 mL 07/27/22 [Rx Last Taken Unknown] pen needle, diabetic 32 gauge x 1/4 (Novofine 32) #200 ea 07/27/22 [Rx Last Taken Unknown] cholestyramine (with sugar) 4 gram oral powder 4 g PO DAILY #348.6 grams 08/12/22 [Rx Last Taken Unknown] fluticasone propionate 50 mcg/actuation nasal spray,suspension 2 spray intranasal PRN PRN Nasal Congestion 09/06/22 [History Last Taken Unknown] ursodiol 250 mg tablet See Rx Instructions .Route .COMPLEX #180 tabs 10/14/22 [Rx Last Taken Unknown] lisinopril 2.5 mg tablet See Rx Instructions .Route .COMPLEX #90 TABLETS 10/26/22 [Rx Last Taken Unknown] pantoprazole 40 mg tablet,delayed release 40 mg PO BID #180 tabs 01/04/23 [Rx Last Taken Unknown] ezetimibe 10 mg tablet (Zetia) 10 mg PO DAILY #60 tabs 02/28/23 [Rx Last Taken Unknown] insulin lispro 100 unit/mL subcutaneous pen (Humalog KwikPen (U-100) Insulin) 12 unit subcut TID 02/28/23 [History Last Taken Unknown] Jardiance 10 mg tablet (empagliflozin) 10 mg PO DAILY #30 tabs 03/14/23 [Rx Last Taken Unknown] denosumab 60 mg/mL subcutaneous syringe (Prolia) 60 mg subcut [id number] #1 mL 03/17/23 [Rx Last Taken Unknown] insulin degludec 100 unit/mL (3 mL) subcutaneous pen (Tresiba FlexTouch U-100 insulin) 40 unit (0.4 mL) subcut QHS #36 mL 10/16/23 [Rx Last Taken Unknown] duloxetine 60 mg capsule,delayed release See Rx Instructions .Route .COMPLEX #180 caps 08/01/23 [Rx Last Taken Unknown] cholecalciferol (vitamin D3) 1,250 mcg (50,000 unit) capsule 1,250 mcg PO QWEEK #30 caps 08/22/23 [Rx Last Taken Unknown] amitriptyline 100 mg tablet 200 mg (2 x 100 mg) PO QHS #180 tabs 08/23/23 [Rx Last Taken Unknown] buspirone 10 mg tablet 10 mg PO TID #270 tabs 08/23/23 [Rx Last Taken Unknown] cyclobenzaprine 10 mg tablet 5 - 10 mg (0.5 - 1 x 10 mg) PO TID PRN muscle spasm #270 tabs 08/23/23 [Rx Last Taken Unknown] loratadine 10 mg tablet 10 mg PO DAILY #90 tabs 08/23/23 [Rx Last Taken Unknown] pregabalin 150 mg capsule 150 mg PO BID #180 caps 08/23/23 [Rx Last Taken Unknown] rimegepant 75 mg disintegrating tablet (Nurtec ODT) 75 mg PO DAILY PRN migraine headache #8 tabs 08/23/23 [Rx Last Taken Unknown] albuterol sulfate 90 mcg/actuation aerosol inhaler (Ventolin HFA) 1 - 2 puff inhalation Q4H PRN PRN Wheezing #1 inh 09/11/23 [Rx Last Taken Unknown] oxycodone-acetaminophen 5 mg-325 mg tablet 1 tab PO Q6H PRN PRN Pain 3 days #12 TABLETS 09/13/23 [Rx Last Taken Unknown] prednisone 20 mg tablet 40 mg (2 x 20 mg) PO DAILY 5 days #10 TABLETS 09/13/23 [Rx Last Taken Unknown] Allergy/AdvReac Type Severity Reaction Status Date / Time saliva substitute Allergy Severe Angioedema Verified 09/20/23 09:31 combination no.9 [From [facility]] gemfibrozil AdvReac Severe Myalgia Verified 09/20/23 09:31 [id number] Reductase AdvReac Severe muscle pain Verified 09/20/23 09:31 Inhibitor Family History Brother Diabetes Mother Diabetes Heart disease Hypertension Grandmother Diabetes Sister Diabetes Heart disease Hypertension Thyroid disorder Father Kidney disease Grandfather Kidney disease Surgical History H/O: hysterectomy History of bilateral knee arthroplasty History of cholecystectomy History of esophagogastroduodenoscopy (EGD) Hx of colonoscopy Social History Smoking Status: Never smoker second hand exposure: No alcohol intake: never substance use type: does not use yessenia/yazidi: Islam seatbelt use: always ROS ROS Narrative 10 systems were reviewed with pertinent positives as noted in the HPI above. Physical Exam Const alert and no apparent distress Constitutional Narrative: Morbidly obese. General Appearance: cooperative HEENT normocephalic and head/scalp atraumatic Eyes PERRL, EOMs intact bilaterally and conjunctivae normal Neck supple General: trachea midline Chest inspection of chest normal Resp normal respiratory effort Auscultation: diminished lung sounds; Negative for rales, rhonchi or wheezes Cardio regular rate and regular rhythm GI normal to inspection, nondistended, normoactive bowel sounds Extremity no clubbing, cyanosis or edema Skin no rashes or lesions noted Neuro oriented x3, moves all extremities and no focal motor deficits Psych cooperative and affect normal Lab / Micro Data 09/22/23 03:19 09/22/23 03:19 Labs: Laboratory Results - last 24 hr 09/20/23 14:36: Alkaline Phosphatase 151 H, Troponin I High Sens 509 H* 09/20/23 15:41: POC Glucose 113 H 09/20/23 16:16: Troponin I High Sens 469 H* 09/20/23 18:30: APTT 94.0 H* 09/20/23 20:20: Troponin I High Sens 302 H* 09/20/23 22:18: POC Glucose 154 H 09/21/23 02:54: WBC 7.9, RBC 3.96 L, Hgb 11.3 L, Hct 37.1, MCV 93.7, MCH 28.5, MCHC 30.5 L D, RDW Std Deviation 51.8 H, RDW Coeff of Paulo 15.1 H, Plt Count 281, MPV 10.2, Immature Gran % (Auto) 1.500 H, Neut % (Auto) 63.5, Lymph % (Auto) 21.4, Young % (Auto) 12.7 H, Eos % (Auto) 0.5, Baso % (Auto) 0.4, Absolute Neuts (auto) 5.0, Absolute Lymphs (auto) 1.68, Nucleated RBC % 0, APTT 66.0 H, Sodium 139, Potassium 4.5, Chloride 107, Carbon Dioxide 27.0, Anion Gap 5, BUN 28 H, Creatinine 1.75 H, Estim Creat Clear Calc 23.22, Est GFR (MDRD) Af Amer 37 L, Est GFR (MDRD) Non-Af 31 L, BUN/Creatinine Ratio 16.0, Glucose 124 H, Calcium 9.8, Total Bilirubin 0.30, AST 22, ALT 26, Alkaline Phosphatase 151 H, Total Protein 6.8, Albumin 2.9 L, Globulin 3.9, Albumin/Globulin Ratio 0.7 L 09/21/23 08:40: APTT 56.8 H 09/21/23 09:04: POC Glucose 112 H Micro: Microbiology 09/20/23 09:56 Nasal Secretion SARS-CoV-2 & FLU Antigen (Rapid) - Final SARS-CoV-2 (COVID 19) Imagaing Radiology Impression Echocardiogram 09/20/23 12:48 Interpretation Summary The estimated ejection fraction is 45-50 %. Mild LV systolic dysfunction There is mild global LV hypokinesia Mild RV systolic dysfunction with mildly dilated RV. No prior echocardiogram to compare Ordering Physician: Amara Cardenas Referring Physician: Vamsi Epperson Performed By: Melanie Manzo, TONY, RVT Charges/Coding Visit Charges Inpatient E&M: 37499 Init Hosp L3
[2023-09-21 13:01] LABS: Bedside Glucose 109 mg/dL (74-106)
[2023-09-21 14:36] LABS: Partial Thromboplast Time 46.5 Seconds (24.1-36.2)
[2023-09-21 14:50] VITALS: O2SAT 86
[2023-09-21] MEDS: Heparin Injection (Vial) 5,000 UNIT/ML VIAL IV (14:57)
[2023-09-21 15:00] VITALS: BP 133/84; PULSE 101; RESP 20; TEMP 36.9; O2SAT 94
--- NOTE | 2023-09-21 16:30 | CASEMGMT ---
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 Pt voices understanding and consents to?assessment?at this time.? Pt is A/O at this time and answers all questions appropriately.?? Care providers, pharmacy, and demographics verified/updated at this time. PCP:Dr Epperson Specialists:Dr Cruz-neuro, Dr Sofia-GI, Dr Nagel-cardiology, Dr Cookie Londono-pulm Preferred Pharmacy:[facility] @ [place]. Insurance: [facility] Prescription Benefit:?yes LNOK: 23-yr-old son, Oliver. Sig other, Chau Mac Living Arrangements: Pt lives w/sig other, Chau, and 23-yr-old son, Oliver, in one-story apt w/no steps to enter. Pt states Chau is currently @ [facility] and she thinks he should be returning home around Oct 01. Pt states she is independent @ home w/ADL's and IADL's and manages her own appts and medications. Pt and Oliver usually get groceries together. Transportation:?Pt states drives self and states no transportation concerns at this time.? DME: States has the following DME:?shower chair, cane, walker, rollator, transport chair, functioning glucometer w/supplies. Pt states she had a pulse ox, but it is not working and she needs a new one. Pt does not have home O2. She states, if she is able to discharge home and needs O2, [employer] is her 1st preference. Pt states no need for further DME at this time.? HHC/SNF: No hx of either. Discussed discharge planning, including SNF and HHC. Pt states she is feeling weak and she is not sure that she will be able to discharge home, stating she is not sure how she will feel when she is ready for discharge and does not want to make that decision at this time. PLAN:??TBD by course of treatment and progress w/therapy. SNF vs Home w/HHC. Geovanna BSN?RN?CM
[2023-09-21 17:52] LABS: Bedside Glucose 151 mg/dL (74-106)
--- OUTSIDE RECORDS SUMMARY | 2023-09-21 19:44 | XMS RPT_ITS | CCD ---
Author Name Unknown Address [address] [place] [address] Organization [facility] Care Team Providers Care Fire Equipment Inspector Name Role Phone GAIL CUADRA Unavailable Unavailable CHELSEY CH Unavailable Unavailable Adedipe, Adefunke G Primary Care Provider Adedipe, Adefunke G Primary Care Provider EDGAR DENNIS Referring Unavailable ADEDIPE, ADEFUNKE G Primary Care Unavailable EDGAR DENNIS Referring Unavailable ADEDIPE, ADEFUNKE G Primary Care Unavailable EDGAR DENNIS Referring Unavailable ADEDIPE, ADEFUNKE G Primary Care Unavailable RAMOS, SAJAN R Referring Unavailable ADEDIPE, ADEFUNKE G Primary Care Unavailable NASH CUELLAR Referring Unavailable ADEDIPE, ADEFUNKE G Primary Care Unavailable JACK ROSA Referring Unavailable ADEDIPE, ADEFUNKE G Primary Care Unavailable RAMOS, SAJAN R Referring Unavailable ADEDIPE, ADEFUNKE G Primary Care Unavailable RAMOS, SAJAN R Referring Unavailable ADEDIPE, ADEFUNKE G Primary Care Unavailable RAMOS, SAJAN R Referring Unavailable ADEDIPE, ADEFUNKE G Primary Care Unavailable RAMOS, SAJAN R Referring Unavailable ADEDIPE, ADEFUNKE G Primary Care Unavailable RAMOS, SAJAN R Referring Unavailable ADEDIPE, ADEFUNKE G Primary Care Unavailable RAMOS, SAJAN R Referring Unavailable ADEDIPE, ADEFUNKE G Primary Care Unavailable RAMOS, SAJAN R Referring Unavailable ADEDIPE, ADEFUNKE G Primary Care Unavailable RAMOS, SAJAN R Referring Unavailable ADEDIPE, ADEFUNKE G Primary Care Unavailable RAMOS, SAJAN R Referring Unavailable ADEDIPE, ADEFUNKE G Primary Care Unavailable RAMOS, SAJAN R Referring Unavailable ADEDIPE, ADEFUNKE G Primary Care Unavailable RAMOS, SAJAN R Referring Unavailable ADEDIPE, ADEFUNKE G Primary Care Unavailable RAMOS, SAJAN R Referring Unavailable ADEDIPE, ADEFUNKE G Primary Care Unavailable ADEDIPE, ADEFUNKE G Primary Care Unavailable RAMOS, SAJAN R Referring Unavailable ADEDIPE, ADEFUNKE G Primary Care Unavailable Oleghe, Efewongbe B Primary Care Provider Ole Faulkner MD Unavailable [phone] Oleghe, Efewongbe B Primary Care Provider Ole Faulkner MD Unavailable Oleghe, Efewongbe B Primary Care Provider Oleghe, Efewongbe B Primary Care Provider TIFFANY WALDEN Attending Unavailable OLEGHE, EFEWONGBE Primary Care Unavailable CIRA, OLE Attending Unavailable STEPHANIE PEREIRA Referring Unavailable OLEGHE, EFEWONGBE Primary Care Unavailable CIRA, OLE Attending Unavailable OLEGHE, EFEWONGBE Primary Care Unavailable BRENT BANG Attending Unavailable OLEGHE, EFEWONGBE Primary Care Unavailable BRENT BAGN Attending Unavailable OLEGHE, EFEWONGBE Primary Care Unavailable BRENT BANG Attending Unavailable OLEGHE, EFEWONGBE Primary Care Unavailable CIRA, OLE Attending Unavailable OLEGHE, EFEWONGBE Primary Care Unavailable CIRA, OLE Attending Unavailable OLEGHE, EFEWONGBE Primary Care Unavailable TIFFANY WALDEN Attending Unavailable OLEGHE, EFEWONGBE Primary Care Unavailable CIRA, OLE Attending Unavailable CIRA, OLE Admitting Unavailable OLEGHE, EFEWONGBE Primary Care Unavailable BERNADINE ALVARADO Attending Unavailable BERNADINE ALVARADO Referring Unavailable OLEGHE, EFEWONGBE Primary Care Unavailable CIRA, OLE Admitting Unavailable CIRA, OLE Attending Unavailable OLEGHE, EFEWONGBE Primary Care Unavailable Allergies Allergy Classification Reported Allergen(s) Allergy Type Date of Onset Reaction(s) Facility (20 sources) Gemfibrozil Drug Allergy 0 Other (See Comments) [place] (20 sources) Biotin Drug Allergy 3 Anaphylaxis [facility] (20 sources) HMG-CoA reductase inhibitor Propensity to adverse reactions 3 Other [facility] (3 sources) Sodium Fluoride Drug Allergy 3 Shortness of breath [facility] Medications Current Medications Medication Drug Class(es) Dates Sig (Normalized) Sig (Original) activated charcoal 260 mg oral capsule (20 sources) Start: 03-10-2020 take 1 capsule by mouth twice daily as needed CHARCOCAPS 260 MG CAPS Take 1 capsule by mouth 2 times daily as needed for Flatulence (bloating, belching) 120 capsule 3 03/10/2020 Active Completed/Discontinued Medications Medication Drug Class(es) Dates Sig (Normalized) Sig (Original) barium sulfate 40 % reconsitutable suspension (1 source) Start: 02-25-2020 End: 02-25-2020 barium sulfate 40 % reconsitutable suspension barium sulfate 40 % suspension 80 mL (1 source) Start: 02-25-2020 End: 02-25-2020 barium sulfate 40 % suspension 80 mL 1 ml ketorolac tromethamine 15 mg/ml cartridge (1 source) Nonsteroidal Anti-inflammatory Drug, Cyclooxygenase Inhibitor Start: 05-20-2020 End: 05-20-2020 ketorolac (TORADOL) injection 15 mg 1000 ml sodium chloride 9 mg/ml injection (2 sources) Start: 08-29-2023 End: 08-29-2023 sodium chloride 0.9 % infusion technetium sestamibi (CARDIOLITE) injection 25 millicurie (1 source) Start: 11-22-2019 End: 11-22-2019 technetium sestamibi (CARDIOLITE) injection 25 millicurie technetium Tc-99m sulfur colloid (Nycomed-SC) radio-isotope solution 1.1 millicurie (2 sources) Start: 06-30-2023 End: 06-30-2023 technetium Tc-99m sulfur colloid (Nycomed-SC) radio-isotope solution 1.1 millicurie Problems Active Problems Problem Classification Problem Date Documented Date Episodic/Chronic Abdominal pain (3 sources) Indigestion; Translations: [Epigastric pain] Onset: 3 06-23-2023 Episodic Anxiety disorders (20 sources) Mixed anxiety and depressive disorder; Translations: [Anxiety and depression] Onset: 8 07-25-2018 Chronic Chronic kidney disease (20 sources) Chronic kidney disease, stage 3 (moderate); Translations: [Chronic kidney disease stage 3] Onset: 7 07-25-2018 Chronic Diabetes mellitus with complications (2 sources) Diabetes mellitus; Translations: [Other specified diabetes mellitus with other specified complication] 05-12-2023 Chronic Diabetes mellitus without complication (20 sources) Type 2 diabetes mellitus; Translations: [Diabetes mellitus] Onset: 8 07-25-2018 Chronic Disorders of lipid metabolism (20 sources) Mixed hyperlipidemia; Translations: [Mixed hyperlipidemia] Onset: 8 07-25-2018 Chronic Esophageal disorders (20 sources) Gastroesophageal reflux disease; Translations: [Gastroesophageal reflux disease without esophagitis] Onset: 8 07-25-2018 Chronic Essential hypertension (20 sources) Hypertensive disorder; Translations: [Essential (primary) hypertension] Onset: 8 07-25-2018 Chronic Gout and other crystal arthropathies (20 sources) Gout; Translations: [Gout] Onset: 8 07-25-2018 Chronic Malaise and fatigue (20 sources) Chronic fatigue syndrome; Translations: [Chronic fatigue syndrome] Onset: 8 07-25-2018 Chronic Menopausal disorders (20 sources) Postmenopausal bleeding; Translations: [PMB (postmenopausal bleeding)] Onset: 9 01-10-2019 Chronic Nutritional deficiencies (20 sources) Vitamin D deficiency; Translations: [Vitamin D deficiency] Onset: 7 07-25-2018 Chronic Osteoporosis (20 sources) Osteoporosis; Translations: [Osteoporosis] Onset: 8 07-25-2018 Chronic Other connective tissue disease (20 sources) Impingement syndrome of right shoulder region; Translations: [Impingement syndrome of right shoulder] Onset: 8 07-25-2018 Other connective tissue disease (20 sources) Impingement syndrome of left shoulder region; Translations: [Impingement syndrome of left shoulder] Onset: 8 07-25-2018 Other diseases of kidney and ureters (20 sources) Hyperparathyroidism due to renal insufficiency; Translations: [Hyperparathyroidism due to renal insufficiency] Onset: 8 08-08-2018 Chronic Other diseases of kidney and ureters (20 sources) Cyst of kidney; Translations: [Cyst of right kidney] Onset: 8 07-25-2018 Other disorders of stomach and duodenum (14 sources) Delayed gastric emptying; Translations: [Functional dyspepsia] 06-23-2023 Episodic Other disorders of stomach and duodenum (2 sources) Functional dyspepsia; Translations: [Functional dyspepsia] Onset: 3 Episodic Other female genital disorders (20 sources) Complex endometrial hyperplasia; Translations: [Complex endometrial hyperplasia] Onset: 9 02-15-2019 Chronic Other female genital disorders (20 sources) Endometrial hyperplasia; Translations: [Endometrial hyperplasia] 03-15-2019 Chronic Other nervous system disorders (20 sources) Postoperative pain ; Translations: [Postoperative pain] 03-15-2019 Episodic Other nervous system disorders (20 sources) Meralgia paresthetica of left leg; Translations: [Meralgia paraesthetica, left] Onset: 0 02-11-2020 Other nutritional; endocrine; and metabolic disorders (20 sources) Morbid obesity; Translations: [Morbid (severe) obesity due to excess calories] Onset: 8 07-25-2018 Chronic Other nutritional; endocrine; and metabolic disorders (4 sources) H/O: metabolic disorder; Translations: [History of hypercalcemia] Onset: 8 08-08-2018 Episodic Other nutritional; endocrine; and metabolic disorders (2 sources) Weight loss; Translations: [Weight Loss] Onset: 3 Episodic Residual codes; unclassified (20 sources) Obstructive sleep apnea syndrome; Translations: [Obstructive sleep apnea (adult) (pediatric)] Onset: 8 09-01-2018 Chronic Residual codes; unclassified (2 sources) Obstructive sleep apnea (adult) (pediatric); Translations: [Obstructive sleep apnea (adult) (pediatric)] Onset: 3 Chronic Retinal detachments; defects; vascular occlusion; and retinopathy (20 sources) Degenerative disorder of macula ; Translations: [Macular degeneration] Onset: 8 07-25-2018 Chronic Spondylosis; intervertebral disc disorders; other back problems (1 source) Cervical radiculopathy; Translations: [Cervical radiculopathy] Chronic Thyroid disorders (20 sources) Goiter; Translations: [Thyromegaly] Onset: 0 10-22-2019 Chronic Past or Other Problems Problem Classification Problem Date Documented Da te Episodic/Chronic Other aftercare (20 sources) Surgical follow-up; Translations: [Postop check] Onset: 04-14-2019 Resolved: 05-14-2019 05-14-2019 Episodic Other and unspecified benign neoplasm (20 sources) Parathyroid adenoma; Translations: [Parathyroid adenoma] Onset: 11-13-2019 11-13-2019 Episodic Other connective tissue disease (20 sources) Fibromyalgia; Translations: [Fibromyalgia] Onset: 07-25-2018 07-25-2018 Episodic Other connective tissue disease (20 sources) Muscle atrophy; Translations: [Atrophy of muscle of thigh] Onset: 02-11-2020 02-11-2020 Episodic Other diseases of kidney and ureters (1 source) Cyst of kidney, acquired; Translations: [Cyst of kidney, acquired] Onset: 11-24-2017 Episodic Other female genital disorders (20 sources) Polyp of corpus uteri; Translations: [Polyp, corpus uteri] Onset: 02-15-2019 02-15-2019 Episodic Other gastrointestinal disorders (20 sources) Oropharyngeal dysphagia; Translations: [Oropharyngeal dysphagia] Onset: 10-22-2019 10-22-2019 Episodic Other infections; including parasitic (20 sources) History of Lyme disease; Translations: [History of Lyme disease] Onset: 07-25-2018 07-25-2018 Episodic Other liver diseases (20 sources) Alkaline phosphatase raised; Translations: [Elevated alkaline phosphatase level] Onset: 11-23-2016 07-25-2018 Episodic Other lower respiratory disease (20 sources) Dyspnea; Translations: [Dyspnea] Onset: 11-29-2019 02-08-2020 Episodic Residual codes; unclassified (20 sources) Postmenopausal state; Translations: [Postmenopausal] Onset: 01-10-2019 01-10-2019 Episodic Residual codes; unclassified (20 sources) Insomnia; Translations: [Insomnia] Onset: 07-25-2018 07-25-2018 Episodic Residual codes; unclassified (20 sources) Edema of lower extremity; Translations: [Bilateral leg edema] Onset: 07-25-2018 07-25-2018 Episodic Residual codes; unclassified (20 sources) H/O: Disorder; Translations: [H/O metabolic and nutritional disorder] Onset: 08-08-2018 02-08-2020 Episodic Spondylosis; intervertebral disc disorders; other back problems (2 sources) Low back pain; Translations: [Neck pain] Episodic Unclassified (1 source) Encounter for screening mammogram for malignant neoplasm of breast; Translations: [Encounter for screening mammogram for malignant neoplasm of breast] Onset: 08-22-2017 Episodic Unclassified (20 sources) Patient encounter status; Translations: [Screening for HPV (human papillomavirus)] Onset: 01-10-2019 Resolved: 02-09-2019 02-09-2019 Results Test Name Value Interpretation Reference Range Facil ity Vital Signs Date Time Vital Sign Value Performing Clinician Faci [facility] 08-29-2023 11:35-0500 Diastolic blood pressure 86 mm[Hg] Ole Faulkner MD Work Phone: [employer] [facility] 08-29-2023 11:35-0500 Heart rate 75 /min Ole Faulkner MD Work Phone: [employer] [facility] 08-29-2023 11:35-0500 Respiratory rate 18 /min Ole Faulkner MD Work Phone: [facility] 08-29-2023 11:35-0500 SaO2% (BldA) [Mass fraction] 98 % Ole Faulkner MD Work Phone: [employer] [facility] 08-29-2023 11:35-0500 Systolic blood pressure 128 mm[Hg] Ole Faulkner MD Work Phone: [employer] [facility] 08-29-2023 11:17-0500 Body temperature 97.5 [degF] Ole Faulkner MD Work Phone: [facility] 08-08-2023 10:05-0500 Body height 154.3 cm Brent Bang MD Work Phone: [employer] [facility] 08-08-2023 10:05-0500 Body mass index (BMI) [Ratio] 43.25 kg/m2 Brent Bang MD Work Phone: [employer] [facility] 08-08-2023 10:05-0500 Body weight 102.97 kg Brent Bang MD Work Phone: [facility] [employer] [facility] 08-08-2023 10:05-0500 Diastolic blood pressure 85 mm[Hg] Brent Bang MD Work Phone: [facility] 08-08-2023 10:05-0500 Heart rate 92 /min Brent Bang MD Work Phone: [facility] 08-08-2023 10:05-0500 Systolic blood pressure 131 mm[Hg] Brent Bang MD Work Phone: [facility] 07-25-2023 09:11-0400 Body height 154.3 cm Brent Bang MD Work Phone: [facility] 07-25-2023 09:11-0400 Body mass index (BMI) [Ratio] 43.74 kg/m2 Brent Bang MD Work Phone: [facility] 07-25-2023 09:11-0400 Body weight 104.15 kg Brent Bang MD Work Phone: [facility] 07-25-2023 09:11-0400 Diastolic blood pressure 85 mm[Hg] Brent Bang MD Work Phone: [facility] 07-25-2023 09:11-0400 Heart rate 93 /min Brent Bang MD Work Phone: [facility] 07-25-2023 09:11-0400 Systolic blood pressure 127 mm[Hg] Brent Bang MD Work Phone: [facility] 06-23-2023 10:20-0400 Diastolic blood pressure 97 mm[Hg] Ole Faulkner MD Work Phone: [facility] 06-23-2023 10:20-0400 Heart rate 91 /min Ole Faulkner MD Work Phone: [facility] 06-23-2023 10:20-0400 SaO2% (BldA) [Mass fraction] 95 % Ole Faulkner MD Work Phone: [facility] [facility] 06-23-2023 10:20-0400 Systolic blood pressure 113 mm[Hg] Ole Faulkner MD Work Phone: [facility] [facility] [employer] [facility] 06-23-2023 09:59-0400 Body temperature 98.2 [degF] Ole Faulkner MD Work Phone: [facility] 06-23-2023 09:59-0400 Respiratory rate 16 /min Ole Faulkner MD Work Phone: [facility] [facility] 06-23-2023 09:28-0400 Body height 154.3 cm Ole Faulkner MD Work Phone: [facility] 06-23-2023 09:28-0400 Body mass index (BMI) [Ratio] 44.39 kg/m2 Ole Faulkner MD Work Phone: [facility] 06-23-2023 09:28-0400 Body weight 105.69 kg Ole Faulkner MD Work Phone: [facility] [facility] [employer] [facility] 02-18-2023 13:36-0400 Body height 154.[address] Work Phone: [facility] 02-18-2023 13:36-0400 Body mass index (BMI) [Ratio] 44.5 kg/m2 Estephania Wniter RD Work Phone: [facility] 02-18-2023 13:36-0400 Body weight 105.[address] Work Phone: [employer] [facility] 05-20-2020 11:49-0400 BMI (Body Mass Index) 40.24 kg/m2 [facility] [place] [place] 05-20-2020 11:49-0400 Body Temperature 98.2 [degF] [facility] [employer] [facility], [place] 05-20-2020 11:49-0400 Body [facility] [place] [facility] [place] 05-20-2020 11:49-0400 BP Diastolic 89 mm[Hg] [facility] [employer] [facility] [place] 05-20-2020 11:49-0400 BP Systolic 143 mm[Hg] [facility] [place] 05-20-2020 11:49-0400 Height 157.5 cm [facility] [place] 05-20-2020 11:49-0400 Pulse (Heart Rate) 89 /min [employer] [facility] [employer] [facility], [place] 05-20-2020 11:49-0400 Pulse Oximetry 98 % [facility] [place] 05-20-2020 11:49-0400 Respiratory Rate 16 /min [facility] Encounters Encounter Date Encounter Type Care Provider Facility Start: 09-07-2023 End: 09-07-2023 ambulatory TIFFANYJONO WALDEN [facility] Start: 09-05-2023 End: 09-05-2023 ambulatory OLE FAULKNER [facility] Start: 09-05-2023 End: 09-05-2023 Telemedicine consultation with patient Ole Faulkner MD Work Phone: [facility] [place] Procedures Date Procedure Procedure Detail Performing Clinician Start: 06-30-2023 Gastric emptying cynthia ging study Bernadine Alvarado [employer] TECHNICIAN Work Phone: Start: 09-22-[address] Work Phone: Start: 05-30-2020 Mri spinal canal cer vical w/o contrast matrl EDGAR DENNIS Start: 05-30-2020 Mri spinal canal cer vical w/o contrast matrl Sajan Yaw Ramos Work Phone: Start: 05-20-2020 Radex spine cervical 4 or 5 views EDGAR DENNIS Start: 05-20-2020 Radex spine thoracic 3 views EDGAR DENNIS Start: 02-29-2020 Brncdilat rspse spmt ry pre&post-brncdilat admn EDGAR DENNIS Start: 02-29-2020 Us retroperitoneal r eal time w/image limited EDGAR DENNIS Start: 02-29-2020 Brncdilat rspse spmt ry pre&post-brncdilat admn Nash Cuellar Work Phone: Start: 02-29-2020 Us retroperitoneal r eal time w/image limited Jack Rosa Work Phone: Start: 02-26-2020 BOTANICAL TECHNICAL OFFICER EVAL AND TREAT ZAC DENNIS Start: 02-25-2020 Swallowing funcj w/cineradiograpy/vidradiog EDGAR TEDDY Start: 11-22-2019 Parathyroid planar i maging w/wo subtraction EDGAR MCCRAYENS Start: 11-22-2019 Parathyroid planar i maging w/wo subtraction Edgar Dennis Work Phone: Start: 11-10-2019 Us soft tissue head & neck real time imge docm EDGARAAYUSH DENNIS Start: 11-10-2019 Echo tthrc r-t 2d w/ wom-mode compl spec&colr d EDGARAAYUSH DENNIS Start: 11-10-2019 Echo transthorac r-t 2d w/wo m-mode rec comp EDGAR DENNIS Plan of Treatment Date Care Activity Detail Author Start: 09-28-2026 Colon cancer screen [facility]: Start: 09-28-2026 Screening for malignant neoplasm of colon Colon cancer screen colonoscopy [place], [place] Start: 07-29-2026 DTaP/Tdap/Td vaccine (2 - Td) DTaP/Tdap/Td vaccine (2 - Td) [facility] Work Phone: Start: 07-29-2026 DTaP/Tdap/Td Vaccines (2 - Td or Tdap) DTaP/Tdap/Td Vaccines (2 - Td or Tdap) [employer] [facility] Start: 09-05-2023 End: 09-05-2023 Telemedicine consultation with patient 09/05/2023 2:00 PM EST Telemed[facility] [place] [address] [place] [address] [place] [address] [facility] [place] Start: 08-29-2023 End: 08-29-2023 Admission to same day surgery center 08/29/2023 12:00 PM EST - 08/29/2023 12:20 PM EST Surgery [facility] End[facility] [address] [place] [address] Ole Faulkner MD [address] [place] [address] EGD WITH BIOPSY [51211 (CPT )] [facility] Endoscopy Immunizations Immunization Date Immunization Notes Care Provider Fa cility 06-26-2021 influenza virus vacc ine, unspecified formulation Brent Bang MD Work Phone: [facility] [employer] [facility] 05-27-2021 influenza virus vacc ine, unspecified formulation Estephania Winter RD Work Phone: [facility] 06-13-2019 influenza virus vacc ine, unspecified formulation [facility] [employer] Work Phone: 01-29-2019 zoster recombinant adjuvanted vaccine (SHINGRIX) 50 MCG/0.5ML SUSR injection [facility] [employer] [facility] Work Phone: 07-26-2018 Influenza Vaccine, unspecified formulation [facility] [employer] Phone: 07-26-2018 influenza, injectabl e, quadrivalent, contains preservative [facility] [employer] Phone: 08-22-2017 Influenza Vaccine, unspecified formulation [facility] [employer] [facility] Work Phone: 08-22-2017 influenza virus vacc ine, unspecified formulation [facility] [employer] [facility] Work Phone: 08-22-2017 influenza, injectabl e, quadrivalent, contains preservative [facility] [employer] Phone: 08-22-2017 pneumococcal conjuga te vaccine, 13 valent [facility] [employer] Phone: 07-29-2016 pneumococcal polysaccharide vaccine, 23 valent [facility] [employer] [facility] Work Phone: 07-29-2016 tetanus toxoid, redu sadaf diphtheria toxoid, and acellular pertussis vaccine, adsorbed [facility] [employer] [facility] Work Phone: Payers Date Payer Category Payer Medicare [facility] MEDICARE [facility] MEDICARE ADVANTAGE [id number] 2022-Present [phone] [address] [address] [place] [address] Medicare HMO [id number] 2019 Medicare [facility] MEDICARE [facility] MEDICARE COMPLETE xxxxxxxxx 2019-Present xxxxxxxxx [id number] 2019 Medicare UHC MEDICARE UHC MEDICARE COMPLETE [id number] 2019-Present [id number] 2019 Medicare [id number] 2018 Unknown YONATHAN CHAVEZ [facility] xxxxxxxxxxx 2018-Present [phone] [address] [place] [address] xxxxxxxxxxx [id number] 2018 Unknown [id number] 1955 Unknown [id number] [id number]2 1955 Unknown [id number] 2.16.840.1.215887.3.579.2.182 1955 Unknown [id number] 2.16.840.1.037543.3.579.2.182 1955 Unknown [id number] 2.16.840.1.788970.3.579.2.182 1955 Unknown [id number] 2.16.840.1.898443.3.579.2.182 1955 Unknown [id number] 2.16.840.1.300446.3.579.2.182 1955 Unknown [id number] 2.16.840.1.671674.3.579.2.182 1955 Unknown [id number] 2.16.840.1.866353.3.579.2.182 1955 Unknown [id number] 2.16.840.1.705777.3.579.2. 1955 Unknown [id number] 2.16.840.1.031963.3.579.2.182 1955 Unknown [id number] 2.16840.1.805024.3.579.2. 1955 Unknown [id number] 2.16.840.1.689436.3.579.2.182 1955 Unknown [id number] 2.16.840.1.996078.3.579.2. 1955 Unknown [id number] 2.16.840.1.635912.3.579.2.182 1955 Unknown [id number] 2.16.840.1.004868.3.579.2.182 1955 Unknown [id number] 2.16.840.1.353356.3.579.2.182 1955 Unknown [id number] 2.16.840.1.998975.3.579.2. 1955 Unknown [id number] 2.16.840.1.421809.3.579.2. 1955 Unknown [id number] 2.16.840.1.793193.3.579.2. 1955 Unknown [id number] [id number]2 Social History Date Type Detail Facility Start: 10-31-2019 End: 02-08-2023 Tobacco smoking status NHIS Never smoker [employer] Phone: Start: 10-31-2019 End: 03-27-2020 Alcohol intake Current non-drinker of alcohol (finding) [facility]: Sex Assigned At Female [employer] Phone: Exposure to SARS-CoV -2 (event) Unable to assess [facility] Start: 03-27-2020 End: 02-08-2023 Tobacco use and exposure Never used [facility] Start: 05-20-2020 Alcohol intake Lifetime non-d gabriel (finding) [facility] Start: 05-20-2020 History SDOH Alcohol Frequency 1 [facility] Start: 02-08-2023 End: 05-12-2023 Exposure to SARS-CoV-2 (event) Not sure [facility] Start: 02-08-2023 Alcohol intake Ex-drinker (finding) [facility] Start: 1955 Sex Assigned At Not on file [facility] [employer] Start: 02-08-2023 History of Social function [facility] Start: 02-08-2023 [facility] Procedure Code Equipment Code Equipment Origin al Text Equipment Identifier Dates Use TWICE DAILY [id number] Start: 06-20-2019 Pt test 4x daily befire meals and bedtime dx e11.65 [id number] Start: 03-26-2019 1 Device by Does not apply route 4 times daily (before meals and nightly) [id number] Start: 03-26-2019 Test 4x daily Dx E11.65 [id number] Start: 01-09-2020 Test 4 times emanuel ly before meals and bedtime [id number] Start: 01-09-2020 Use 4 times axel y (before meals and nightly) [id number] Start: 04-02-2020 Clinical Notes 04-21-2021 to 09-05-2023 Estephania Winter, RD - 09/05/2023 2:00 PM ESTOp Note - Ole Faulkner MD - 08/29/2023 10:57 AM ESTOp Note - Ole Faulkner MD - 08/29/2023 10:57 AM Kulwinder Faulkner MD - 08/29/2023 10:38 AM EST Note Date & Type Note Facility 09-05-2023 History of Present illness Narrative [facility] NUTRITION ASSESSMENT / DIET & EXERCISE SURGICAL WEIGHT LOSS MANAGEMENT PROGRAM Date: 09/05/23 Patient Name: Shawnee Mohr Date of : 1955 Type of Assessment: [x] Surgical Patient - Pre-op Follow Up Assessment Weight Metrics: Today's Height: N/A-VV Today's Weight: N/A_VV Surgeon: Dr. 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 Depression Diabetes (HCC) Difficulty sleeping Dizziness Fatigue Fatty liver GERD (gastroesophageal reflux disease) HTN (hypertension) Hx: UTI (urinary tract infection) Liver fibrosis Memory difficulties Morbid obesity, unspecified obesity type (HCC) Muscle weakness BENTLEY (obstructive sleep apnea) Snoring SOBOE (shortness of breath on exertion) Current Medications: has a current medication list which includes the following prescription(s): amitriptyline, buspirone, cholecalciferol, cyanocobalamin, duloxetine, folic acid, insulin lispro, jardiance, latanoprost, linzess, lisinopril, loratadine, metoclopramide, multiple vitamins-minerals, pantoprazole, pregabalin, caretouch cpap & bipap hose, rimegepant sulfate, tresiba flextouch, trulicity, ursodiol, and vitamin e. Weight History Patient has been considering weight loss surgery for months Primary reason(s) for weight loss improve health Number of years over weight > 10 PREVIOUS WEIGHT LOSS ATTEMPTS Method When Amount lost Amount regained Most successful Tops Years ago 10 lb Weight Watchers Years ago 30 lb Post Weight Loss Surgery- Type: Patient's current diet quality, relative to the Past weight loss surgery diet is: [x] N/A CURRENT MEAL PLANNING Self Meals planned by X Food shopping done by X Meals cooked by X EXERCISE/CURRENT ACTIVITY ADLs CURRENT EATING HABITS/ADDITIONAL INFORMATION 24 Hour Recall completed: Yes Breakfast: cream of wheat; protein shake Lunch: 1 slice of bread with meat or plain meat Dinner: baked pork chop (loin) with carrots and mashed potatoes Snack: SF jello Drinks: mostly water throughout the day SUPPORT SYSTEM A. Family knowledgeable about/supportive of plans for weight loss surgery: Yes B. Patient understands that they must have someone in their home 18/04 for the first week following surgery, or that they must be able to stay with someone for the first week Yes C. Co-workers knowledgeable about/supportive of plans for weight loss surgery: N/A KNOWLEDGE AND EDUCATION ASSESSMENT AND PLAN Patient's level of knowledge regarding the changes that will have to be made in their diet following weight loss surgery is: [x] Excellent - patient is well informed. RECOMMENDATIONS AND PLAN [x] Educational Materials Provided [x]Strategies for Eating handout given to and discussed with patient [x] Patient cleared for weight loss surgery Patient able to state major diet changes that need to be made following surgery Patient states/demonstrates readiness to make necessary diet changes Diagnoses: GERD Note: Pt presents virtually for follow up BNA. Pt last seen by this RD January 2023. Per diet recall, noted above, pt has not been skipping meals and is including protein q meal/snack. Pt drinking water throughout the day. Pt asking what more appointments has to complete. Routing to team. Pt without further nutrition questions. Pt doing well. Pt cleared by nutrition for WLS. Pt informed at time of visit. Goals: Continue frequent meals and protein q meal Materials Provided:None Follow up: PRN Pt encouraged to call/MyChart with questions. Patient was identified and seen today via Telehealth by agreement and consent. I used the following Telehealth technology: Audio capability only. Total length of call 20 minutes. The patient was offered and advised video for a more comprehensive evaluation, but the patient declined or was unable to use video. Patient location: Patient Location: Home. This patient encounter is appropriate and reasonable under the circumstances: Pt preference . The patient has been advised of the potential risks and limitations of this mode of treatment (including but not limited to the absence of in-person examination) and has agreed to be treated in a remote fashion in spite of them. Any and all of the patient's/patient's family's questions on this issue have been answered and I have made no promises or guarantees to the patient. The patient has also been advised to contact this office for worsening conditions or problems, and seek emergency medical treatment and/or call 911 if the patient deems either necessary. The patient stated that they are currently in the state [facility]. If the patient is a minor, permission has been obtained by the parent or guardian for the patient to receive medical care at this visit. Bariatric Nutrition Assessment completed by: Estephania Winter RD documented in this encounter [facility] 08-29-2023 Note Patient: Shawnee das Procedure Summary Date: 08/29/23 Room / Location: [place] [address] / [facility] Gastroenterology Anesthesia Start: 1100 Anesthesia Stop: 1115 Procedure: EGD WITH BIOPSY Diagnosis: GERD (gastroesophageal reflux disease) (GERD (gastroesophageal reflux disease) [K21.9]) Providers: Ole Faulkner MD Responsible Provider: Darius Tong MD Anesthesia Type: TIVA ASA Status: 3 Anesthesia Type: TIVA Vitals Value Taken Time BP 138/81 08/29/23 1115 Temp 36.1 ?C (97 ?F) 08/29/23 1115 Pulse 72 08/29/23 1115 Resp 16 08/29/23 1115 SpO2 97 % 08/29/23 1115 Anesthesia Post Evaluation Patient location during evaluation: PACU Patient participation: complete - patient participated Level of consciousness: awake and alert Pain management: satisfactory to patient Airway patency: patent Dental Injury: no Cardiovascular status: acceptable, blood pressure returned to baseline and hemodynamically stable Respiratory status: acceptable and spontaneous ventilation Hydration status: euvolemic Nausea/Vomiting: controlled No notable events documented. Patient can be discharged once all PACU criteria has been met. [facility] 08-29-2023 Note Patient: Shawnee das Procedure Summary Date: 08/29/23 Room / Location: [place] [address] / [facility] Gastroenterology Anesthesia Start: 1100 Anesthesia Stop: 1115 Procedure: EGD WITH BIOPSY Diagnosis: GERD (gastroesophageal reflux disease) (GERD (gastroesophageal reflux disease) [K21.9]) Providers: Ole Faulkner MD Responsible Provider: Darius Tong MD Anesthesia Type: TIVA ASA Status: 3 Anesthesia Type: TIVA Vitals Value Taken Time BP 138/81 08/29/23 1115 Temp 36.1 ?C (97 ?F) 08/29/23 1115 Pulse 72 08/29/23 1115 Resp 16 08/29/23 1115 SpO2 97 % 08/29/23 1115 Anesthesia Post Evaluation Patient location during evaluation: PACU Patient participation: complete - patient participated Level of consciousness: awake and alert Pain management: satisfactory to patient Multimodal analgesia pain management approach Airway patency: patent Two or more strategies used to mitigate risk of obstructive sleep apnea Cardiovascular status: acceptable and hemodynamically stable Respiratory status: acceptable Hydration status: acceptable No notable events documented. MIPS #430 PONV Patient did not receive an inhalational anesthetic (XX430) MIPS # 424 Perioperative Temperature Management Anesthesia time was less than 60 minutes (4256F) MIPS #477 Multimodal Pain Management Not emergent case Patient was not administered multimodal pain management (G2149) Patient reports no pain in PACU (G2149) MIPS #404 Anesthesiology Smoking Abstinence The patient is not a current smoker (e.g. cigarette, cigar, pipe, e-cigarette/vaping/marijuana) If no stop here (G9644) I completed my handoff to the receiving clinician during which we: 1. Identified the patient 2. Identified the responsible provider 3. Reviewed the pertinent medical history 4. Discussed the surgical course 5. Reviewed intra-op anesthesia management and issues during anesthesia 6. Set expectations for post-procedure period 7. Allowed opportunity for questions and acknowledgement of understanding. [facility] 08-29-2023 Note [facility] Patient Name: Shawnee Mohr Procedure Date: 08/29/2023 10:57 AM Gender: Female Date of : 1955 Age: 68 Admit Type: Outpatient Note Status: Finalized Endoscopist: Ole Faulkner MD, [id number] Procedure: Upper GI endoscopy Indications: Heartburn Findings: Mild inflammation was found in the gastric antrum. Biopsies were taken with a cold forceps for Helicobacter pylori testing. A small hiatal hernia was present. Fluid was found in the middle third of the esophagus, mucousy consistency. LA Grade A (one or more mucosal breaks less than 5 mm, not extending between tops of 2 mucosal folds) esophagitis with no bleeding was found at the gastroesophageal junction. Biopsies were taken with a cold forceps for histology. Impression: - Gastritis. Biopsied. - Small hiatal hernia. - Fluid in the middle third of the esophagus, mucousy. - LA Grade A reflux esophagitis with no bleeding. Rule out Ghosh's esophagus. Biopsied. Recommendation: - Patient has a contact number available for emergencies. The signs and symptoms of potential delayed complications were discussed with the patient. Return to normal activities tomorrow. Written discharge instructions were provided to the patient. - Resume previous diet. - Continue present medications. - Await pathology results. Referring MD: Alexis Epperson Medicines: Monitored Anesthesia Care Procedure: Pre-Anesthesia Assessment: - Prior to the procedure, a History and Physical was performed, and patient medications and allergies were reviewed. The patient's tolerance of previous anesthesia was also reviewed. The risks and benefits of the procedure and the sedation options and risks were discussed with the patient. All questions were answered, and informed consent was obtained. Prior Anticoagulants: The patient has taken no anticoagulant or antiplatelet agents. ASA Grade Assessment: per anesthesia endoscopic documentation. After reviewing the risks and benefits, the patient was deemed in satisfactory condition to undergo the procedure. - The anesthesia plan was to use monitored anesthesia care (MAC). After obtaining informed consent, the endoscope was passed under direct vision. Throughout the procedure, the patient's blood pressure, pulse, and oxygen saturations were monitored continuously. The Endoscope was introduced through the mouth, and advanced to the second part of duodenum. The upper GI endoscopy was accomplished without difficulty. The patient tolerated the procedure well. Complications: No immediate complications. Procedure Code(s): --- Professional --- 64078, Esophagogastroduodenoscopy, flexible, transoral; with biopsy, single or multiple --- Technical --- 46792, Esophagogastroduodenoscopy, flexible, transoral; with biopsy, single or multiple Diagnosis Code(s): --- Professional --- K29.70, Gastritis, unspecified, without bleeding K44.9, Diaphragmatic hernia without obstruction or gangrene R12, Heartburn --- Technical --- K29.70, Gastritis, unspecified, without bleeding K44.9, Diaphragmatic hernia without obstruction or gangrene R12, Heartburn CPT copyright 2021 [employer]. All rights reserved. The codes documented in this report are preliminary and upon service rig operator review may be revised to meet current compliance requirements. Attending Participation: I personally performed the entire procedure. Ole Faulkner MD. Ole Faulkner MD 08/29/2023 12:32:54 PM This report has been signed electronically. 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 No date: Depression No date: Diabetes (HCC) No date: Difficulty sleeping No date: Dizziness No date: Fatigue No date: Fatty liver No date: GERD (gastroesophageal reflux disease) No date: HTN (hypertension) No date: Hx: UTI (urinary tract infection) No date: Liver fibrosis No date: Memory difficulties No date: Morbid obesity, unspecified obesity type (HCC) No date: Muscle weakness No date: BENTLEY (obstructive sleep apnea) No date: Snoring No date: SOBOE (shortness of breath on exertion) Past Surgical History: Past Surgical History: No date: CHOLECYSTECTOMY Comment: Freddy MEDINA 2018: HYSTERECTOMY Comment: Yaneli No date: TOTAL KNEE ARTHROPLASTY; Right Comment: Christy MEDINA No date: TOTAL KNEE ARTHROPLASTY; Left Social History: TOBACCO: reports that she has never smoked. She has never used smokeless tobacco. ETOH: reports that she does not currently use alcohol. Social History Substance and Sexual Activity Drug Use Not Currently Family History: Family History Problem Relation Name Age of Onset ? Diabetes Mother ? Multiple sclerosis Mother ? Clotting disorder Father ? Arthritis Sister Screening: Postmenopausal Clinical information reviewed: Meds Physical Exam Airway Mallampati: II TM distance: >3 FB Neck ROM: full Mouth Open: normalendotracheal tube in place Cardiovascular Dental dentition normal Pulmonary Abdominal Anesthesia Plan patient is NPO appropriate Any family history or previous problems with anesthesia no ASA 3 TIVA Any family history or previous problems with anesthesia no The patient is not a current smoker. Anesthetic plan and risks discussed with patient. BENTLEY Screening Labs: No results found for: WBC , HGB , HCT , MCV , PLT No results found for: NA , K , CL , CO2 , BUN , CREATININE , GLUCOSE , CALCIUM , PROT , BILIRUBINFL , ALKPHOS , AST , ALT , EGFR , GLOB No echocardiogram results found for the past 14 days No results found for this or any previous visit. [facility] 08-29-2023 Note Endoscopy History an d Physical HPI: Shawnee Mohr is a 68 y.o. female who presents with gerd history of ghosh's and is undergoing preoperative workup for weight reduction surgery. BMI is There is no height or weight on file to calculate BMI. 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 Depression Diabetes (HCC) Difficulty sleeping Dizziness Fatigue Fatty liver GERD (gastroesophageal reflux disease) HTN (hypertension) Hx: UTI (urinary tract infection) Liver fibrosis Memory difficulties Morbid obesity, unspecified obesity type (HCC) Muscle weakness BENTLEY (obstructive sleep apnea) Snoring SOBOE (shortness of breath on exertion) PSHx: Past Surgical History: Procedure Laterality Date CHOLE[place]STECTOMY [place] [facility] [place]STERECT[place] 2018 [place] TOTAL KNEE ARTHROPLASTY Right [place] [facility] TOTAL KNEE ARTHROPLASTY Left PFMHx: Family History Problem Relation Name Age of Onset Diabetes Mother Multiple sclerosis Mother Clotting disorder Father Arthritis Sister ALL: Allergies Allergen Reactions Biotin Anaphylaxis Statins Other Muscle pain / fatigue, dry mouth MEDS: @MEDCMED@ SOCIAL Hx: Social History Socioeconomic History Marital status: Spouse name: Not on file Number of children: Not on file Years of education: Not on file Highest education level: Not on file Occupational History Not on file Tobacco Use Smoking status: Never Smokeless tobacco: Never Substance and Sexual Activity Alcohol use: Not Currently Drug use: Not Currently Sexual activity: Not Currently Other Topics Concern Not on file Social History Narrative Not on file Social Determinants of Health Financial Resource Strain: Not on file Food Insecurity: Not on file Transportation Needs: Not on file Physical Activity: Not on file Stress: Not on file Social Connections: Not on file Intimate Partner Violence: Not on file Housing Stability: Not on file Review of Systems: I personally reviewed the patient intake form with the patient. The ROS is negative except for what is listed in HPI. Physical Examination: There were no vitals taken for this visit. She stands @FLOWAMB(11)@ tall with a weight of @FLOWAMB(14)@ , resulting in a BMI of There is no height or weight on file to calculate BMI.. General: The patient is awake, alert, and oriented, and is in no apparent distress. Normal affect. Head and Neck: Normocephalic and atraumatic. Supple, no thyromegaly. Cardiac: Regular rate and rhythm without evidence of murmur. No obvious carotid bruits. Respiratory: Clear to auscultation bilaterally. Good inspiratory effort. Abdomen: Soft, non tender, non distended Extremities: Ambulatory without assistance. Neurological: Intact sensation in 4 extremities, no focal deficits notes. Skin: No rashes or lesions noted. Warm and dry. Rectal: Not done. Hernia: no hernias found on exam Assessment and Plan Active Problems: There are no active Hospital Problems. Plan: 68 y.o. female who presents with gerd Morbid obesity with There is no height or weight on file to calculate BMI.. EGD with biopsy Patient counseled on risks, benefits, and alternatives of treatment plan at length. Patient states an understanding and willingness to proceed with plan. [facility] 08-29-2023 Note Formatting of this n ote might be different from the original. [facility]: Shawnee Moh[facility] Procedure Date: 08/29/2023 10:57 AM Gender: Female Date of : 1955 Age: 68 Admit Type: Outpatient Note Status: Finalized Endoscopist: Ole Faulkner MD, [id number] Procedure: Upper GI endoscopy Indications: Heartburn Findings: Mild inflammation was found in the gastric antrum. Biopsies were taken with a cold forceps for Helicobacter pylori testing. A small hiatal hernia was present. Fluid was found in the middle third of the esophagus, mucousy consistency. LA Grade A (one or more mucosal breaks less than 5 mm, not extending between tops of 2 mucosal folds) esophagitis with no bleeding was found at the gastroesophageal junction. Biopsies were taken with a cold forceps for histology. Impression: - Gastritis. Biopsied. - Small hiatal hernia. - Fluid in the middle third of the esophagus, mucousy. - LA Grade A reflux esophagitis with no bleeding. Rule out Ghosh's esophagus. Biopsied. Recommendation: - Patient has a contact number available for emergencies. The signs and symptoms of potential delayed complications were discussed with the patient. Return to normal activities tomorrow. Written discharge instructions were provided to the patient. - Resume previous diet. - Continue present medications. - Await pathology results. Referring MD: Alexis Epperson Medicines: Monitored Anesthesia Care Procedure: Pre-Anesthesia Assessment: - Prior to the procedure, a History and Physical was performed, and patient medications and allergies were reviewed. The patient's tolerance of previous anesthesia was also reviewed. The risks and benefits of the procedure and the sedation options and risks were discussed with the patient. All questions were answered, and informed consent was obtained. Prior Anticoagulants: The patient has taken no anticoagulant or antiplatelet agents. ASA Grade Assessment: per anesthesia endoscopic documentation. After reviewing the risks and benefits, the patient was deemed in satisfactory condition to undergo the procedure. - The anesthesia plan was to use monitored anesthesia care (MAC). After obtaining informed consent, the endoscope was passed under direct vision. Throughout the procedure, the patient's blood pressure, pulse, and oxygen saturations were monitored continuously. The Endoscope was introduced through the mouth, and advanced to the second part of duodenum. The upper GI endoscopy was accomplished without difficulty. The patient tolerated the procedure well. Complications: No immediate complications. Procedure Code(s): --- Professional --- 53441, Esophagogastroduodenoscopy, flexible, transoral; with biopsy, single or multiple --- Technical --- 52966, Esophagogastroduodenoscopy, flexible, transoral; with biopsy, single or multiple Diagnosis Code(s): --- Professional --- K29.70, Gastritis, unspecified, without bleeding K44.9, Diaphragmatic hernia without obstruction or gangrene R12, Heartburn --- Technical --- K29.70, Gastritis, unspecified, without bleeding K44.9, Diaphragmatic hernia without obstruction or gangrene R12, Heartburn CPT copyright 2021 [employer]. All rights reserved. The codes documented in this report are preliminary and upon service rig operator review may be revised to meet current compliance requirements. Attending Participation: I personally performed the entire procedure. Ole Faulkner MD. Ole Faulkner MD 08/29/2023 12:32:54 PM This report has been signed electronically. Number of Addenda: 0 Note Initiated On: 08/29/2023 10:57 AM [facility] 08-29-2023 Note Formatting of this n ote might be different from the original. [facility] Name: Shawnee Mohr Procedure Date: 08/29/2023 10:57 AM Gender: Female Date of : 1955 Age: 68 Admit Type: Outpatient Note Status: Finalized Endoscopist: Ole Faulkner MD, [id number] Procedure: Upper GI endoscopy Indications: Heartburn Findings: Mild inflammation was found in the gastric antrum. Biopsies were taken with a cold forceps for Helicobacter pylori testing. A small hiatal hernia was present. Fluid was found in the middle third of the esophagus, mucousy consistency. LA Grade A (one or more mucosal breaks less than 5 mm, not extending between tops of 2 mucosal folds) esophagitis with no bleeding was found at the gastroesophageal junction. Biopsies were taken with a cold forceps for histology. Impression: - Gastritis. Biopsied. - Small hiatal hernia. - Fluid in the middle third of the esophagus, mucousy. - LA Grade A reflux esophagitis with no bleeding. Rule out Ghosh's esophagus. Biopsied. Recommendation: - Patient has a contact number available for emergencies. The signs and symptoms of potential delayed complications were discussed with the patient. Return to normal activities tomorrow. Written discharge instructions were provided to the patient. - Resume previous diet. - Continue present medications. - Await pathology results. Referring MD: Alexis Epperson Medicines: Monitored Anesthesia Care Procedure: Pre-Anesthesia Assessment: - Prior to the procedure, a History and Physical was performed, and patient medications and allergies were reviewed. The patient's tolerance of previous anesthesia was also reviewed. The risks and benefits of the procedure and the sedation options and risks were discussed with the patient. All questions were answered, and informed consent was obtained. Prior Anticoagulants: The patient has taken no anticoagulant or antiplatelet agents. ASA Grade Assessment: per anesthesia endoscopic documentation. After reviewing the risks and benefits, the patient was deemed in satisfactory condition to undergo the procedure. - The anesthesia plan was to use monitored anesthesia care (MAC). After obtaining informed consent, the endoscope was passed under direct vision. Throughout the procedure, the patient's blood pressure, pulse, and oxygen saturations were monitored continuously. The Endoscope was introduced through the mouth, and advanced to the second part of duodenum. The upper GI endoscopy was accomplished without difficulty. The patient tolerated the procedure well. Complications: No immediate complications. Procedure Code(s): --- Professional --- 71214, Esophagogastroduodenoscopy, flexible, transoral; with biopsy, single or multiple --- Technical --- 00500, Esophagogastroduodenoscopy, flexible, transoral; with biopsy, single or multiple Diagnosis Code(s): --- Professional --- K29.70, Gastritis, unspecified, without bleeding K44.9, Diaphragmatic hernia without obstruction or gangrene R12, Heartburn --- Technical --- K29.70, Gastritis, unspecified, without bleeding K44.9, Diaphragmatic hernia without obstruction or gangrene R12, Heartburn CPT copyright 202 [employer]. All rights reserved. The codes documented in this report are preliminary and upon service rig operator review may be revised to meet current compliance requirements. Attending Participation: I personally performed the entire procedure. Ole Faulkner MD. Ole Faulkner MD 08/29/2023 12:32:54 PM This report has been signed electronically. Number of Addenda: 0 Note Initiated On: 08/29/2023 10:57 AM [facility] 08-29-2023 [facility] Shawnee Moh[facility] Procedure Date: 08/29/2023 10:57 AM Gender: Female Date of : 1955 Age: 68 Admit Type: Outpatient Note Status: Finalized Endoscopist: Ole Faulkner MD, [id number] Procedure: Upper GI endoscopy Indications: Heartburn Findings: Mild inflammation was found in the gastric antrum. Biopsies were taken with a cold forceps for Helicobacter pylori testing. A small hiatal hernia was present. Fluid was found in the middle third of the esophagus, mucousy consistency. LA Grade A (one or more mucosal breaks less than 5 mm, not extending between tops of 2 mucosal folds) esophagitis with no bleeding was found at the gastroesophageal junction. Biopsies were taken with a cold forceps for histology. Impression: - Gastritis. Biopsied. - Small hiatal hernia. - Fluid in the middle third of the esophagus, mucousy. - LA Grade A reflux esophagitis with no bleeding. Rule out Ghosh's esophagus. Biopsied. Recommendation: - Patient has a contact number available for emergencies. The signs and symptoms of potential delayed complications were discussed with the patient. Return to normal activities tomorrow. Written discharge instructions were provided to the patient. - Resume previous diet. - Continue present medications. - Await pathology results. Referring MD: Alexis Epperson Medicines: Monitored Anesthesia Care Procedure: Pre-Anesthesia Assessment: - Prior to the procedure, a History and Physical was performed, and patient medications and allergies were reviewed. The patient's tolerance of previous anesthesia was also reviewed. The risks and benefits of the procedure and the sedation options and risks were discussed with the patient. All questions were answered, and informed consent was obtained. Prior Anticoagulants: The patient has taken no anticoagulant or antiplatelet agents. ASA Grade Assessment: per anesthesia endoscopic documentation. After reviewing the risks and benefits, the patient was deemed in satisfactory condition to undergo the procedure. - The anesthesia plan was to use monitored anesthesia care (MAC). After obtaining informed consent, the endoscope was passed under direct vision. Throughout the procedure, the patient's blood pressure, pulse, and oxygen saturations were monitored continuously. The Endoscope was introduced through the mouth, and advanced to the second part of duodenum. The upper GI endoscopy was accomplished without difficulty. The patient tolerated the procedure well. Complications: No immediate complications. Procedure Code(s): --- Professional --- 06054, Esophagogastroduodenoscopy, flexible, transoral; with biopsy, single or multiple --- Technical --- 63026, Esophagogastroduodenoscopy, flexible, transoral; with biopsy, single or multiple Diagnosis Code(s): --- Professional --- K29.70, Gastritis, unspecified, without bleeding K44.9, Diaphragmatic hernia without obstruction or gangrene R12, Heartburn --- Technical --- K29.70, Gastritis, unspecified, without bleeding K44.9, Diaphragmatic hernia without obstruction or gangrene R12, Heartburn CPT copyright 2021 [employer]. All rights reserved. The codes documented in this report are preliminary and upon service rig operator review may be revised to meet current compliance requirements. Attending Participation: I personally performed the entire procedure. Ole Faulkner MD. Ole Faulkner MD 08/29/2023 12:32:54 PM This report has been signed electronically. Number of Addenda: 0 Note Initiated On: 08/29/2023 10:57 AM documented in this encounter [facility] 08-29-2023 History and physical note Images from the original note were not included. Endoscopy History and Physical HPI: Shawnee Mohr is a 68 y.o. female who presents with gerd history of ghosh's and is undergoing preoperative workup for weight reduction surgery. BMI is There is no height or weight on file to calculate BMI. 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 Depression Diabetes (HCC) Difficulty sleeping Dizziness Fatigue Fatty liver GERD (gastroesophageal reflux disease) HTN (hypertension) Hx: UTI (urinary tract infection) Liver fibrosis Memory difficulties Morbid obesity, unspecified obesity type (HCC) Muscle weakness BENTLEY (obstructive sleep apnea) Snoring SOBOE (shortness of breath on exertion) PSHx: Past Surgical History: Procedure Laterality Date [place]LE[place]ST[place]OMY [place] [facility] [place]STERE[place] 2018 [place] TOTAL KNEE ARTHROPLASTY Right [place] TOTAL KNEE ARTHROPLASTY Left PFMHx: Family History Problem Relation Name Age of Onset Diabetes Mother Multiple sclerosis Mother Clotting disorder Father Arthritis Sister ALL: Allergies Allergen Reactions Biotin Anaphylaxis Statins Other Muscle pain / fatigue, dry mouth MEDS: @MEDCMED@ SOCIAL Hx: Social History Socioeconomic History Marital status: Spouse name: Not on file Number of children: Not on file Years of education: Not on file Highest education level: Not on file Occupational History Not on file Tobacco Use Smoking status: Never Smokeless tobacco: Never Substance and Sexual Activity Alcohol use: Not Currently Drug use: Not Currently Sexual activity: Not Currently Other Topics Concern Not on file Social History Narrative Not on file Social Determinants of Health Financial Resource Strain: Not on file Food Insecurity: Not on file Transportation Needs: Not on file Physical Activity: Not on file Stress: Not on file Social Connections: Not on file Intimate Partner Violence: Not on file Housing Stability: Not on file Review of Systems: I personally reviewed the patient intake form with the patient. The ROS is negative except for what is listed in HPI. Physical Examination: There were no vitals taken for this visit. She stands @FLOWAMB(11)@ tall with a weight of @FLOWAMB(14)@ , resulting in a BMI of There is no height or weight on file to calculate BMI.. General: The patient is awake, alert, and oriented, and is in no apparent distress. Normal affect. Head and Neck: Normocephalic and atraumatic. Supple, no thyromegaly. Cardiac: Regular rate and rhythm without evidence of murmur. No obvious carotid bruits. Respiratory: Clear to auscultation bilaterally. Good inspiratory effort. Abdomen: Soft, non tender, non distended Extremities: Ambulatory without assistance. Neurological: Intact sensation in 4 extremities, no focal deficits notes. Skin: No rashes or lesions noted. Warm and dry. Rectal: Not done. Hernia: no hernias found on exam Assessment and Plan Active Problems: There are no active Hospital Problems. Plan: 68 y.o. female who presents with gerd Morbid obesity with There is no height or weight on file to calculate BMI.. EGD with biopsy Patient counseled on risks, benefits, and alternatives of treatment plan at length. Patient states an understanding and willingness to proceed with plan. [facility] Phone: 08-29-2023 History and physical note Images from the original note were not included. Endoscopy History and Physical HPI: Shawnee Mohr is a 68 y.o. female who presents with gerd history of ghosh's and is undergoing preoperative workup for weight reduction surgery. BMI is There is no height or weight on file to calculate BMI. 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 Depression Diabetes (HCC) Difficulty sleeping Dizziness Fatigue Fatty liver GERD (gastroesophageal reflux disease) HTN (hypertension) Hx: UTI (urinary tract infection) Liver fibrosis Memory difficulties Morbid obesity, unspecified obesity type (HCC) Muscle weakness BENTLEY (obstructive sleep apnea) Snoring SOBOE (shortness of breath on exertion) PSHx: Past Surgical History: Procedure Laterality Date CHOLECYSTECTOMY [place] [facility] HYSTERECTOMY 2018 [place] TOTAL KNEE ARTHROPLASTY Right [place] TOTAL KNEE ARTHROPLASTY Left PFMHx: Family History Problem Relation Name Age of Onset Diabetes Mother Multiple sclerosis Mother Clotting disorder Father Arthritis Sister ALL: Allergies Allergen Reactions Biotin Anaphylaxis Statins Other Muscle pain / fatigue, dry mouth MEDS: @MEDCMED@ SOCIAL Hx: Social History Socioeconomic History Marital status: Spouse name: Not on file Number of children: Not on file Years of education: Not on file Highest education level: Not on file Occupational History Not on file Tobacco Use Smoking status: Never Smokeless tobacco: Never Substance and Sexual Activity Alcohol use: Not Currently Drug use: Not Currently Sexual activity: Not Currently Other Topics Concern Not on file Social History Narrative Not on file Social Determinants of Health Financial Resource Strain: Not on file Food Insecurity: Not on file Transportation Needs: Not on file Physical Activity: Not on file Stress: Not on file Social Connections: Not on file Intimate Partner Violence: Not on file Housing Stability: Not on file Review of Systems: I personally reviewed the patient intake form with the patient. The ROS is negative except for what is listed in HPI. Physical Examination: There were no vitals taken for this visit. She stands @FLOWAMB(11)@ tall with a weight of @FLOWAMB(14)@ , resulting in a BMI of There is no height or weight on file to calculate BMI.. General: The patient is awake, alert, and oriented, and is in no apparent distress. Normal affect. Head and Neck: Normocephalic and atraumatic. Supple, no thyromegaly. Cardiac: Regular rate and rhythm without evidence of murmur. No obvious carotid bruits. Respiratory: Clear to auscultation bilaterally. Good inspiratory effort. Abdomen: Soft, non tender, non distended Extremities: Ambulatory without assistance. Neurological: Intact sensation in 4 extremities, no focal deficits notes. Skin: No rashes or lesions noted. Warm and dry. Rectal: Not done. Hernia: no hernias found on exam Assessment and Plan Active Problems: There are no active Hospital Problems. Plan: 68 y.o. female who presents with gerd Morbid obesity with There is no height or weight on file to calculate BMI.. EGD with biopsy Patient counseled on risks, benefits, and alternatives of treatment plan at length. Patient states an understanding and willingness to proceed with plan. documented in this encounter [facility] 08-22-2023 Telephone encounter Note Spoke with this patient, she has been scheduled for phone visit for Nut with MB [facility] 08-22-2023 Miscellaneous Notes Spoke with this patient, she has been scheduled for phone visit for Nut with MB Call to patient to schedule with MB, had to [facility] asking for a call back to reschedule Addended by: BERNADINE ALVARADO on: 08/08/2023 02:15 PM Modules accepted: Orders Nicotine order signed. Addended by: MEAGAN BINGHAM on: 08/08/2023 02:10 PM Modules accepted: Orders Just spoke to patient. Can you call her to schedule follow up visit with MB? Thank you! Got her, spoke with patient, she was confirming future appts. Patient left me a VM, I think she is ret your call Tonja. 2nd voicemail asking for a call back for scheduling. Lvm asking patient to call us back to schedule with KASEY Please call patient to schedule bna fu with KASEY, thanks! Spoke with patient, she has been rescheduled for 07/[address] [place] [address] Bang. Please call patient to schedule d/e with Dr. Bang. Patient no showed April visit which was her 2nd. Spoke to patient on the phone and let her know that someone would reach out for scheduling. Authorization for Testing Initiated. Company Name & Number Contacted for Auth: [facility] Name of Pain Management Physician: Laxmi Hernandez Name of Procedure: GES Cpt Code: 26200 Diagnosis Code: E11.9, K30 Location of Procedure: Is Auth Required: Call Reference #: [id number] Pending Case #: Clinical Reviewer: Additional Info if given: Approved Case reference: [id number] Date Range for Approved Auth: 06/28/2023 - 08/12/2023 Test scheduled 06/30/2023, last dose of Trulicty was 06/19/2023. Insurance verification - Kareen @ [phone] called and given approval #. Called pt. Reviewed EGD findings. Discussed order for GES. To hold GLP1 dose for 7 days prior to test. Pt verbalized understanding. Given phone number for Central Scheduling. Addended by: BERNADINE ALVARADO on: 06/23/2023 10:09 AM Modules accepted: Orders Endoscopic Findings: Esophagus: Grossly normal to GE junction Esophagogastric junction: There was mild esophagitis, biopsy not taken due to significant food burden in stomach as below Stomach: Mild gastritis noted in the antrum, biopsies taken for H. Pylori with a cold forceps. There was a large amount of food in the stomach. Duodenum: Grossly normal, without ulcers or other lesions Note, the procedure was significantly obscured by food. Due to aspiration risk, the esophagus was not biopsied, this was due to minimal inflammation as well as the large food burden and aspiration risk for further time under anesthesia. GES ordered per TB. Orders mailed Addended by: BERNADINE ALVARADO on: 02/28/2023 08:37 AM Modules accepted: Orders Orders signed. Pt did have EGD 09/16. Will discuss need to repeat with TB. Addended by: ALLEGRA PALOMARES on: 02/26/2023 12:56 PM Modules accepted: Orders Orders pended, Pre-op checklist scanned, EGD order sent to [facility] Encounter Diagnoses Name Primary? BENTLEY (obstructive sleep apnea) Yes Primary hypertension Gastroesophageal reflux disease without esophagitis Type 2 diabetes mellitus without complication, unspecified whether predatory animal exterminator insulin use (HCC) I have recommended proceeding with the evaluation and work-up for the primary procedure as outlined below: Requested records from GI Specialist Dr. Latesha Faulkner PATIENT SUMMARY Shawnee Mohr 68 y.o. female with Body mass index is 43.36 kg/m . Laparoscopic Mat-en-Y Gastric Bypass and Laparoscopic Liver Biopsy DM[x] HTN[x] BENTLEY[x] GERD[x] HL[x] OA[] Date of Surgery: TBD ALEXIS EPPERSON INITIAL TESTING RESULTS Labwork [x] CMP, TSH, Fasting Lipid Profile, Mg, Zinc, Vit B1 (whole blood), Vit B12, 25-OH Vit D, Fe, Ferritin, Folate Tobacco [x] Serum Nicotine / Cotinine [] Negative [] Positive PLEASE ADD SERUM NICOTINE/COTININE WITH INITIAL LABS ON ALL LRYGB PROCEDURES EGD [x] Dx: [] GERD [x] Dyspepsia [] Other Pathology [x] H. pylori [] Negative [] Positive UGI [] [] not ordered US Abdomen [x] [] not ordered BENTLEY eval [] [] On CPAP / Obtain settings Hematology [] [] Hypercoagulation panel Toxicology [] [] Urine drug screen [] EtOH screen Addtional [x] [x] Hgb A1c INITIAL CONSULTATIONS CLEARANCE / MANAGEMENT Psychology [x] Dietitian [x] Cardiology [x] Pulmonary [x] Others [] []Heme/Onc []Psychiatry []Pain mgmt PSD [x] Physician supervised diet: []None [x]3 mos []6 mos Preop diet [x] Preop low calorie diet: []None []1 wk [x]2 wks FINAL PRE-OP TESTING RESULTS Labwork [x] [x]Pre-op CBC [x]BMP []Serum Nicotine / Cotinine EKG [x] CXR [x] POST-OP MEDICATIONS Ulcer Ppx [x] Omeprazole 20 mg PO [x]QD []BID Gallstone Ppx [x] Ursodiol 300 mg [x]BID DVT Ppx [x] DVT prophylaxis per final preop visit estimated risk Estimated calculated risk: % Schedule final pre-operative office visit with surgeon, pre-operative education class, and pre-operative exercise class prior to date of surgery ATTESTATION I reviewed with the patient the details of the proposed operation. The risks benefits and options were discussed. Risks included but were not limited to bleeding, infection, damage to other surrounding organs, cardio-pulmonary complications related to anesthesia, conversion from laparoscopic to and open procedure, the need for reoperative or endoscopic therapy, the potential for prolonged mechanical ventilation, and . All questions were fully answered to the patient's satisfaction and they wish to proceed with surgical intervention. Greater than 51% of the 45 minute visit was spent as face to face encounter, counseling the patient and discussing the risks,benefits and options of surgery as well as the perioperative care plan. The patient was seen and examined independently and relevant data including a full chart rreview was performed by myself. Initial New [facility] surgical patient Navigation & Financial Counseling Discussion Patient Communication: In office SURGEON: [] JZ [] AD [] MP [x] TB [] LM PROCEDURE: [] LRYGB [] LSG [] SAYRA-S [] SAYRA [] UNDECIDED [] REV: SPECIFY: Confirmed pt wants to continue with surgical program/plan [] YES [] NO (complete program withdrawal note/process) CO-MORBIDS: [] NONE [] DM []HTN [] BENTLEY []GERD [] OTH: PRIVATE PAY: [] NO []YES DATE OF INITIAL BENEFITS VERIFICATION: TRANSFER FU: [] YES [] NO PRIMARY INSURANCE: Payor: [employer] MEDICARE / Plan: [facility] MEDICARE ADVANTAGE [id number] / Product Type: Medicare HMO / BENEFIT ON PLAN: [] NO [] YES BENEFIT MAX: [] NO [] YES -- BENEFIT MAX: $ EMPLOYER: DIET AND EXERCISE (DE) REQUIREMENT PRIMARY [] NONE [x]3M [] 6M []9M [] Medicare 4 Months [] SPR (3M) []OTHER: SECONDARY INSURANCE: BENEFIT ON PLAN: [] NO [] YES BENEFIT MAX: [] NO [] YES -- BENEFIT MAX: $ AUTH REQUIRED FROM SECONDARY [] NO [] YES DIET AND EXERCISE REQUIREMENT SECONDARY [] NONE []3M [] 6M [] Medicare 4 months [] SPR (3M) []OTHER: ___ [x] Discussed with patient: Financial cost overview (document signed and pt given copy at new pt consult visit with surgeon), Initial appointments: Bariatric Nutrition Assessment (BNA) & Diet and Exercise (DE) Patient to look for yellow envelope in mail. This yellow envelope will contain orders for labs, testing and required clearances. Pt encouraged to complete early in program to prevent delays. Encourage blood work to be draw by 1st DE appointment. [x] Reviewed OOP cost, including: [] Optifast cost of approximately $130-140/week x weeks immediately prior to surgery - used to induce rapid weight loss which results in decrease in size of liver and therefore facilitates laparoscopically surgery approach. [x] Overview of inpatient admission benefits - estimated inpatient co-pays, deductibles and/or co-insurance - Estimated OOP costs form reviewed with patient, and copy given to patient at new pt visit. [x] Reviewed next steps with patient: 1) Scheduled at new pt surgeon visit: Licensing Worker (RD) for a Nutrition Assessment (BNA) and Pre-operative Diet and Exercise (DE) appointment #1. [x] Patient reminded to arrive 15 minutes early for check in. Late arrivals may need to be rescheduled. 2) Schedule: Diet and Exercise Apt #2 only scheduled after initial BNA and DE completed, 3) Behavioral Health apt scheduled after DE started. Reviewed rational and goal of Behavioral Health appointments. 4) [x] Reinforced need to cancel any WMI appointments 48 hours in advance. Cautioned NS/Same day cancellations may result in delay in program or program completion hold. Noted: DE series needs to be a monthly series or insurance company may require repeat of the entire series. 5) [x] Smoker/tobacco products including vaping: reviewed need for cessation before surgery clearance and life long abstinence after surgery for best outcomes. Patient navigation to surgery: [x] Explained to patient that average time from initial consult to date of surgery can be 6-8 months. - Process can take longer if there are cancelled appointments, delays in testing and/or additional clearances that needs to be completed. - Reviewed importance of patient active engagement in making and keeping appointments to keep the process moving. - Reinforced need to cancel appointments at least 48 hours in advance. Reviewed that instances of No Shows and Same Day Appointment Cancellations may result in program/surgery delay or hold. [x] Patient advised of importance of having voicemail and MyChart for office communications and lab/testing results before and after surgery. documented in this encounter [facility] 08-10-2023 History of Present illness Narrative ENDOSCOPY ORDERS To be scheduled with: Dr. Faulkner Patient is: Pre-op/Pre-Bariatric Surgery CPT code: EGD with biopsy- CPT 86944 Diagnosis: GERD- K21.9 If pre-op, Diet & Exercise Requirements are, and started/scheduled on : 3 months Home O2: No Known Difficult Intubation: No Is patient on a GLP-1 agonist? Yes If yes- which one? Trulicity (dulaglutide) Please advise that patient hold this medication for 1 week before EGD Will need to follow Clear Liquid Diet for 24 hours prior to test. Left VM for call back. documented in this encounter [facility] 08-10-2023 History of Present illness Narrative ENDOSCOPY ORDERS To be scheduled with: Dr. Faulkner Patient is: Pre-op/Pre-Bariatric Surgery CPT code: EGD with biopsy- CPT 64237 Diagnosis: GERD- K21.9 If pre-op, Diet & Exercise Requirements are, and started/scheduled on : 3 months Home O2: No Known Difficult Intubation: No Is patient on a GLP-1 agonist? Yes If yes- which one? Trulicity (dulaglutide) Please advise that patient hold this medication for 1 week before EGD Will need to follow Clear Liquid Diet for 24 hours prior to test. Left VM for call back. LVM Pt scheduled 08/29/23 at 12:00 [facility] printed documented in this encounter [facility] 08-08-2023 Note Addended by: BERNADINE JACKSON on: 08/08/2023 02:15 PM Modules accepted: [facility] 08-08-2023 Note Addended by: MEAGAN BINGHAM on: 08/08/2023 02:10 PM Modules accepted: [facility] 08-08-2023 Telephone encounter Note Call to patient to schedule with MB, had to [facility] asking for a call back to reschedule [facility] 08-08-2023 Miscellaneous Notes Call to patient to schedule with KASEY, had to [facility] asking for a call back to reschedule Addended by: BERNADINE ALVARADO on: 08/08/2023 02:15 PM Modules accepted: Orders Nicotine order signed. Addended by: MEAGAN BINGHAM on: 08/08/2023 02:10 PM Modules accepted: Orders Just spoke to patient. Can you call her to schedule follow up visit with MB? Thank you! Got her, spoke with patient, she was confirming future appts. Patient left me a VM, I think she is ret your call Tonja. 2nd voicemail asking for a call back for scheduling. Lvm asking patient to call us back to schedule with MB Please call patient to schedule bna fu with MB, thanks! Spoke with patient, she has been rescheduled for 07/[address] [place] [address] Bang. Please call patient to schedule d/e with Dr. Bang. Patient no showed April visit which was her 2nd. Spoke to patient on the phone and let her know that someone would reach out for scheduling. Authorization for Testing Initiated. Company Name & Number Contacted for Auth: [facility] Name of Pain Management Physician: Laxmi Hernandez Name of Procedure: GES Cpt Code: 04439 Diagnosis Code: E11.9, K30 Location of Procedure: Is Auth Required: Call Reference #: [id number] Pending Case #: Clinical Reviewer: Additional Info if given: Approved Case reference: [id number] Date Range for Approved Auth: 06/28/2023 - 08/12/2023 Test scheduled 06/30/2023, last dose of Trulicty was 06/19/2023. Insurance verification - Kareen @ [phone] called and given approval #. Called pt. Reviewed EGD findings. Discussed order for GES. To hold GLP1 dose for 7 days prior to test. Pt verbalized understanding. Given phone number for Central Scheduling. Addended by: BERNADINE ALVARADO on: 06/23/2023 10:09 AM Modules accepted: Orders Endoscopic Findings: Esophagus: Grossly normal to GE junction Esophagogastric junction: There was mild esophagitis, biopsy not taken due to significant food burden in stomach as below Stomach: Mild gastritis noted in the antrum, biopsies taken for H. Pylori with a cold forceps. There was a large amount of food in the stomach. Duodenum: Grossly normal, without ulcers or other lesions Note, the procedure was significantly obscured by food. Due to aspiration risk, the esophagus was not biopsied, this was due to minimal inflammation as well as the large food burden and aspiration risk for further time under anesthesia. GES ordered per TB. Orders mailed Addended by: BERNADINE ALVARADO on: 02/28/2023 08:37 AM Modules accepted: Orders Orders signed. Pt did have EGD 09/16. Will discuss need to repeat with TB. Addended by: ALLEGRA PALOMARES on: 02/26/2023 12:56 PM Modules accepted: Orders Orders pended, Pre-op checklist scanned, EGD order sent to ALS PLAN Encounter Diagnoses Name Primary? BENTLEY (obstructive sleep apnea) Yes Primary hypertension Gastroesophageal reflux disease without esophagitis Type 2 diabetes mellitus without complication, unspecified whether mcfp insulin use (HCC) I have recommended proceeding with the evaluation and work-up for the primary procedure as outlined below: Requested records from GI Specialist Dr. Latesha Faulkner PATIENT SUMMARY Shawnee Mohr 68 y.o. female with Body mass index is 43.36 kg/m . Laparoscopic Mat-en-Y Gastric Bypass and Laparoscopic Liver Biopsy DM[x] HTN[x] BENTLEY[x] GERD[x] HL[x] OA[] Date of Surgery: TBD ALEXIS EPPERSON INITIAL TESTING RESULTS Labwork [x] CMP, TSH, Fasting Lipid Profile, Mg, Zinc, Vit B1 (whole blood), Vit B12, 25-OH Vit D, Fe, Ferritin, Folate Tobacco [x] Serum Nicotine / Cotinine [] Negative [] Positive PLEASE ADD SERUM NICOTINE/COTININE WITH INITIAL LABS ON ALL LRYGB PROCEDURES EGD [x] Dx: [] GERD [x] Dyspepsia [] Other Pathology [x] H. pylori [] Negative [] Positive UGI [] [] not ordered US Abdomen [x] [] not ordered BENTLEY eval [] [] On CPAP / Obtain settings Hematology [] [] Hypercoagulation panel Toxicology [] [] Urine drug screen [] EtOH screen Addtional [x] [x] Hgb A1c INITIAL CONSULTATIONS CLEARANCE / MANAGEMENT Psychology [x] Dietitian [x] Cardiology [x] Pulmonary [x] Others [] []Heme/Onc []Psychiatry []Pain mgmt PSD [x] Physician supervised diet: []None [x]3 mos []6 mos Preop diet [x] Preop low calorie diet: []None []1 wk [x]2 wks FINAL PRE-OP TESTING RESULTS Labwork [x] [x]Pre-op CBC [x]BMP []Serum Nicotine / Cotinine EKG [x] CXR [x] POST-OP MEDICATIONS Ulcer Ppx [x] Omeprazole 20 mg PO [x]QD []BID Gallstone Ppx [x] Ursodiol 300 mg [x]BID DVT Ppx [x] DVT prophylaxis per final preop visit estimated risk Estimated calculated risk: % Schedule final pre-operative office visit with surgeon, pre-operative education class, and pre-operative exercise class prior to date of surgery ATTESTATION I reviewed with the patient the details of the proposed operation. The risks benefits and options were discussed. Risks included but were not limited to bleeding, infection, damage to other surrounding organs, cardio-pulmonary complications related to anesthesia, conversion from laparoscopic to and open procedure, the need for reoperative or endoscopic therapy, the potential for prolonged mechanical ventilation, and . All questions were fully answered to the patient's satisfaction and they wish to proceed with surgical intervention. Greater than 51% of the 45 minute visit was spent as face to face encounter, counseling the patient and discussing the risks,benefits and options of surgery as well as the perioperative care plan. The patient was seen and examined independently and relevant data including a full chart rreview was performed by myself. Initial New [facility] surgical patient Navigation & Financial Counseling Discussion Patient Communication: In office SURGEON: [] JCrispin [] AD [] MP [x] TB [] LM PROCEDURE: [] LRYGB [] LSG [] SAYRA-S [] SAYRA [] UNDECIDED [] REV: SPECIFY: Confirmed pt wants to continue with surgical program/plan [] YES [] NO (complete program withdrawal note/process) CO-MORBIDS: [] NONE [] DM []HTN [] BENTLEY []GERD [] OTH: PRIVATE PAY: [] NO []YES DATE OF INITIAL BENEFITS VERIFICATION: TRANSFER FU: [] YES [] NO PRIMARY INSURANCE: Payor: [employer] MEDICARE / Plan: [facility] MEDICARE ADVANTAGE [id number] / Product Type: Medicare HMO / BENEFIT ON PLAN: [] NO [] YES BENEFIT MAX: [] NO [] YES -- BENEFIT MAX: $ EMPLOYER: DIET AND EXERCISE (DE) REQUIREMENT PRIMARY [] NONE [x]3M [] 6M []9M [] Medicare 4 Months [] SPR (3M) []OTHER: SECONDARY INSURANCE: BENEFIT ON PLAN: [] NO [] YES BENEFIT MAX: [] NO [] YES -- BENEFIT MAX: $ AUTH REQUIRED FROM SECONDARY [] NO [] YES DIET AND EXERCISE REQUIREMENT SECONDARY [] NONE []3M [] 6M [] Medicare 4 months [] SPR (3M) []OTHER: ___ [x] Discussed with patient: Financial cost overview (document signed and pt given copy at new pt consult visit with surgeon), Initial appointments: Bariatric Nutrition Assessment (BNA) & Diet and Exercise (DE) Patient to look for yellow envelope in mail. This yellow envelope will contain orders for labs, testing and required clearances. Pt encouraged to complete early in program to prevent delays. Encourage blood work to be draw by 1st DE appointment. [x] Reviewed OOP cost, including: [] Optifast cost of approximately $130-140/week x weeks immediately prior to surgery - used to induce rapid weight loss which results in decrease in size of liver and therefore facilitates laparoscopically surgery approach. [x] Overview of inpatient admission benefits - estimated inpatient co-pays, deductibles and/or co-insurance - Estimated OOP costs form reviewed with patient, and copy given to patient at new pt visit. [x] Reviewed next steps with patient: 1) Scheduled at new pt surgeon visit: Licensing Worker (RD) for a Nutrition Assessment (BNA) and Pre-operative Diet and Exercise (DE) appointment #1. [x] Patient reminded to arrive 15 minutes early for check in. Late arrivals may need to be rescheduled. 2) Schedule: Diet and Exercise Apt #2 only scheduled after initial BNA and DE completed, 3) Behavioral Health apt scheduled after DE started. Reviewed rational and goal of Behavioral Health appointments. 4) [x] Reinforced need to cancel any WMI appointments 48 hours in advance. Cautioned NS/Same day cancellations may result in delay in program or program completion hold. Noted: DE series needs to be a monthly series or insurance company may require repeat of the entire series. 5) [x] Smoker/tobacco products including vaping: reviewed need for cessation before surgery clearance and life long abstinence after surgery for best outcomes. Patient navigation to surgery: [x] Explained to patient that average time from initial consult to date of surgery can be 6-8 months. - Process can take longer if there are cancelled appointments, delays in testing and/or additional clearances that needs to be completed. - Reviewed importance of patient active engagement in making and keeping appointments to keep the process moving. - Reinforced need to cancel appointments at least 48 hours in advance. Reviewed that instances of No Shows and Same Day Appointment Cancellations may result in program/surgery delay or hold. [x] Patient advised of importance of having voicemail and MyChart for office communications and lab/testing results before and after surgery. documented in this encounter [facility] 08-08-2023 Note Addended by: BERNADINE JACKSON on: 08/08/2023 02:15 PM Modules accepted: Orders [facility] 08-08-2023 Note Addended by: BERNADINE JACKSON on: 08/08/2023 02:15 PM Modules accepted: Orders [facility] 08-08-2023 Note Addended by: BERNADINE JACKSON on: 08/08/2023 02:15 PM Modules accepted: Orders [facility] 08-08-2023 Note Addended by: BERNADINE JACKSON on: 08/08/2023 02:15 PM Modules accepted: Orders [facility] 08-08-2023 Telephone encounter Note Nicotine order signed. [facility] 08-08-2023 Note Addended by: MEAGAN BINGHAM on: 08/08/2023 02:10 PM Modules accepted: Orders [facility] 08-08-2023 Note Addended by: MEAGAN BINGHAM on: 08/08/2023 02:10 PM Modules accepted: Orders [facility] 08-08-2023 Note Addended by: MEAGAN BINGHAM on: 08/08/2023 02:10 PM Modules accepted: Orders [facility] 08-08-2023 Note Addended by: MEAGAN BINGHAM on: 08/08/2023 02:10 PM Modules accepted: Orders [facility] 08-08-2023 Telephone encounter Note Just spoke to patient. Can you call her to schedule follow up visit with MB? Thank you! [facility] 11-13-2023 Note [facility] SURGICAL WEIGHT LOSS MANAGEMENT PROGRAM PROGRESS NOTE FOLLOW UP Patient: Shawnee Mohr Date of : 1955 Service Date: 08/08/2023 DE Visit number: 3 of 3 Pre Program Weight Metrics Date of Initial Consultation:@FLOWLAST([id number])@ Initial Weight: @FLOWLAST([id number])@ Initial BMI: @FLOWLAST([id number])@ [place] Body Weight: @FLOWLAST([id number])@ Excess Body Weight: @FLOWLAST([id number])@ Follow Up Weight Metrics Last Three Weights Including Today's Weight: Wt Readings from Last 3 Encounters: 08/08/23 227 lb (103 kg) 07/25/23 229 lb 9.6 oz (104 kg) 06/23/23 233 lb (106 kg) Today's BMI: BMI: 43.24 %EBWL: % EBWL: % Weight Chance Since Last Visit: Weight Change: -2.6 lbs Weight Change from Initial DE/SPR Weight: Total Weight Change: Non-Surg Weight on File> lbs Patient has the following question(s): none Falls Risk Assessment Patient doestake medications which affect BP or mental status Patient does not have newly prescribed or changed dosage of medications within past 30 days which affect BP or mental status Patient has fallen in the past 2 months Patient does notdemonstrate unsteady gait Patient uses the following ambulatory assistive devices: cane Patient states the presence of the following traits which increases risk of fall: weakness Patient is not on home O2 Completed by: Gabrielle Foster MA [facility] 08-08-2023 History of Present illness Narrative [facility] [place] SURGICAL WEIGHT LOSS MANAGEMENT PROGRAM PROGRESS NOTE FOLLOW UP Patient: Shawnee Mohr Date of : 1955 Service Date: 08/08/2023 DE Visit number: 3 of 3 Pre Program Weight Metrics Date of Initial Consultation:@FLOWLAST([id number])@ Initial Weight: @FLOWLAST([id number])@ Initial BMI: @FLOWLAST([id number])@ [place] Body Weight: @FLOWLAST([id number])@ Excess Body Weight: @FLOWLAST([id number])@ Follow Up Weight Metrics Last Three Weights Including Today's Weight: Wt Readings from Last 3 Encounters: 08/08/23 227 lb (103 kg) 07/25/23 229 lb 9.6 oz (104 kg) 06/23/23 233 lb (106 kg) Today's BMI: BMI: 43.24 %EBWL: % EBWL: <UNK>% Weight Chance Since Last Visit: Weight Change: -2.6 lbs Weight Change from Initial DE/SPR Weight: Total Weight Change: <No Previous Non-Surg Weight on File> lbs Patient has the following question(s): none Falls Risk Assessment Patient doestake medications which affect BP or mental status Patient does not have newly prescribed or changed dosage of medications within past 30 days which affect BP or mental status Patient has fallen in the past 2 months Patient does notdemonstrate unsteady gait Patient uses the following ambulatory assistive devices: cane Patient states the presence of the following traits which increases risk of fall: weakness Patient is not on home O2 Completed by: Gabrielle Foster MA [facility] WEIGHT LOSS MANAGEMENT PROGRAM PHYSICIAN SUPERVISED DIET AND EXERCISE SURGICAL PREPARATORY REGIMEN - FOLLOW UP Patient is here today for follow up of their physician supervised diet and exercise in preparation for weight loss surgery Weight trend since last visit: lost 3 pounds. This patient's excess weight is causing the following co-morbid conditions at this time: DM, GERD, Fatty Liver Disease, HTN, and BENTLEY with or without CPAP The patient does not have any acute complaints. Physical Examination: BP 131/85 Pulse 92 Ht 5' 0.75 (1.543 m) Wt 227 lb (103 kg) BMI 43.25 kg/m Awake, alert, and oriented, no apparent distress. No respiratory distress, no conversational dyspnea Neurologic: Intact x 4 extremities, no focal deficits notes. No slurred speech Ambulatory without assistance. Assessment of Current Diet and Exercise Current Diet After dinner / night eating: none Breakfast: daily (protein shake) Carbohydrate with protein: yes Cravings: no significant cravings Sugar sweetened beverages: none Plan: --Obesity Class III, Elevated BMI Diet and exercise (DE) Following with bariatric surgery Advised patient that they must adhere to regular monthly visits to meet the requirements of the insurance company. Additionally, they must demonstrate meal plan adoption to show readiness for the changes that will be required following surgery. Diet recommendations provided to patient verbally and in the form of handouts; they understood and agreed with plan. -Jardiance and Trulicity - tolerating well -Discussed cessation of the following prior to and after surgery: caffeine (will try making own decaffeinated tea) --HTN: stable, continue meds per outpatient providers --Diabetes, continue meds per outpatient providers --CKD: Ms. 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 --Sleep apnea: CPAP compliant --GERD: continue PPI --Fatty liver: continue lifestyle modifications, and plan for bariatric surgery. Follow up with PCP for further management and follow up --Ms. Mohr states she was told she has stomach and esophageal cancer, she has questions for the surgical team and she will reach out to them. I will also send a message to the surgeon Dr. Faulkner Advised patient to continue to adhere to regular monthly visits to meet the requirements of the insurance company. Additionally, they must adopt meal plan recommendations to demonstrate readiness for the changes that will be required following surgery. Patient's eating behaviors does demonstrates adoption of eating plan recommendations. Physician diet recommendations provided to the patient. Plan of care discussed with patient, all questions answered, they agree with plan of care. Medical decision making: Patient's medical conditions place them at a moderate risk of complications, morbidity, and mortality. Patient: [] To return in one month for follow up [x] Has completed insurance required monthly diet and exercise series [] Needs to continue monthly visits until authorization/surgery date obtained. (Matheson) No orders of the defined types were placed in this encounter. Current Meds Patient's Medications New Prescriptions No medications on file Previous Medications AMITRIPTYLINE (ELAVIL) 150 MG TABLET Take 150 mg by mouth Nightly. BUSPIRONE (BUSPAR) 10 MG TABLET Take 10 mg by mouth 3 times daily. CHOLECALCIFEROL (VITAMIN D-3) 1.25 MG (32540 UT) CAPSULE Take 50,000 Units by mouth 1 (one) time per week. CYANOCOBALAMIN (VITAMIN B-12 IJ) Inject as directed every 30 (thirty) days. DULOXETINE (CYMBALTA) [address] CAPSULE Take 120 mg by mouth daily. FOLIC ACID (FOLVITE) 1 MG TABLET Take 1,000 mcg by mouth daily. INSULIN LISPRO (HUMALOG) 100 UNIT/ML INJECTION 12 Units 3 times daily. Plus sliding scale JARDIANCE 10 MG Take 10 mg by mouth daily. LATANOPROST (XALATAN) 0.005 % OPHTHALMIC SOLUTION 1 drop before bedtime. LINZESS 145 MCG CAPSULE daily. LISINOPRIL 2.5 MG TABLET Take 2.5 mg by mouth daily. LORATADINE (CLARITIN) 10 MG TABLET Take 10 mg by mouth daily. METOCLOPRAMIDE (REGLAN) 5 MG TABLET 5 mg 3 times daily. MULTIPLE VITAMINS-MINERALS (PRESERVISION AREDS 2 PO) Take by mouth 2 times daily. PANTOPRAZOLE (PROTONIX) 40 MG EC TABLET Take 40 mg by mouth at noon and 40 mg in the evening. PREGABALIN (LYRICA) 50 MG CAPSULE Take 50 mg by mouth at noon and 50 mg in the evening. RESPIRATORY THERAPY SUPPLIES (CARETOUCH CPAP & BIPAP HOSE) MISC Nightly. RIMEGEPANT SULFATE 75 MG TABLET DISPERSIBLE Take 75 mg by mouth. As needed TRESIBA FLEXTOUCH 100 UNIT/ML INJECTION 40 Units Nightly. TRULICITY 4.5 MG/0.5ML SOLUTION PEN-INJECTOR 4.5 mg 1 (one) time per week. URSODIOL (ACTIGALL) 250 MG TABLET Take 250 mg by mouth 2 times daily. VITAMIN E 180 MG (400 UNIT) CAPSULE Take 2 capsules by mouth at noon and 2 capsules in the evening. Modified Medications No medications on file Discontinued Medications No medications on file I reviewed all of the patient's medications and diagnoses listed in Epic. documented in this encounter [facility] 07-25-2023 Note [facility] SURGICAL WEIGHT LOSS MANAGEMENT PROGRAM PROGRESS NOTE FOLLOW UP Patient: Shawnee Mohr Date of : 1955 Service Date: 07/25/2023 DE Visit number: 2 of 3 Pre Program Weight Metrics Date of Initial Consultation:@FLOWLAST([id number])@ Initial Weight: @FLOWLAST([id number])@ Initial BMI: @FLOWLAST([id number])@ [place] Body Weight: @FLOWLAST([id number])@ Excess Body Weight: @FLOWLAST([id number])@ Follow Up Weight Metrics Last Three Weights Including Today's Weight: Wt Readings from Last 3 Encounters: 07/25/23 229 lb 9.6 oz (104 kg) 06/23/23 233 lb (106 kg) 02/18/23 233 lb 9.6 oz (106 kg) Today's BMI: BMI: 43.74 %EBWL: % EBWL: % Weight Chance Since Last Visit: Weight Change: 229.6 lbs Weight Change from Initial DE/SPR Weight: Total Weight Change: Non-Surg Weight on File> lbs Patient has the following question(s): none Falls Risk Assessment Patient doestake medications which affect BP or mental status Patient does not have newly prescribed or changed dosage of medications within past 30 days which affect BP or mental status Patient has fallen in the past 2 months Patient does notdemonstrate unsteady gait Patient uses the following ambulatory assistive devices: cane Patient states the presence of the following traits which increases risk of fall: balance off Patient is not on home O2 Completed by: Gabrielle Foster MA [facility] 07-25-2023 History of Present illness Narrative [facility] WEIGHT LOSS MANAGEMENT PROGRAM PROGRESS NOTE FOLLOW UP Patient: Shawnee Mohr Date of : 1955 Service Date: 07/25/2023 DE Visit number: 2 of 3 Pre Program Weight Metrics Date of Initial Consultation:@FLOWLAST([id number])@ Initial Weight: @FLOWLAST([id number])@ Initial BMI: @FLOWLAST([id number])@ [place] Body Weight: @FLOWLAST([id number])@ Excess Body Weight: @FLOWLAST([id number])@ Follow Up Weight Metrics Last Three Weights Including Today's Weight: Wt Readings from Last 3 Encounters: 07/25/23 229 lb 9.6 oz (104 kg) 06/23/23 233 lb (106 kg) 02/18/23 233 lb 9.6 oz (106 kg) Today's BMI: BMI: 43.74 %EBWL: % EBWL: <UNK>% Weight Chance Since Last Visit: Weight Change: 229.6 lbs Weight Change from Initial DE/SPR Weight: Total Weight Change: <No Previous Non-Surg Weight on File> lbs Patient has the following question(s): none Falls Risk Assessment Patient doestake medications which affect BP or mental status Patient does not have newly prescribed or changed dosage of medications within past 30 days which affect BP or mental status Patient has fallen in the past 2 months Patient does notdemonstrate unsteady gait Patient uses the following ambulatory assistive devices: cane Patient states the presence of the following traits which increases risk of fall: balance off Patient is not on home O2 Completed by: Gabrielle Foster MA [facility] WEIGHT LOSS MANAGEMENT PROGRAM PHYSICIAN SUPERVISED DIET AND EXERCISE SURGICAL PREPARATORY REGIMEN - FOLLOW UP Patient is here today for follow up of their physician supervised diet and exercise in preparation for weight loss surgery Weight trend since last visit: weight stable. This patient's excess weight is causing the following co-morbid conditions at this time: DM, GERD, Fatty Liver Disease, HTN, and BNETLEY with or without CPAP The patient does not have any acute complaints. Physical Examination: BP 127/85 Pulse 93 Ht 5' 0.75 (1.543 m) Wt 229 lb 9.6 oz (104 kg) BMI 43.74 kg/m Awake, alert, and oriented, no apparent distress. No respiratory distress, no conversational dyspnea Neurologic: Intact x 4 extremities, no focal deficits notes. No slurred speech Ambulatory without assistance. Assessment of Current Diet and Exercise Current Diet After dinner / night eating: none Breakfast: daily (protein shake) Carbohydrate with protein: yes Cravings: no significant cravings Sugar sweetened beverages: none Plan: --Obesity Class III, Elevated BMI Diet and exercise (DE) Following with bariatric surgery Advised patient that they must adhere to regular monthly visits to meet the requirements of the insurance company. Additionally, they must demonstrate meal plan adoption to show readiness for the changes that will be required following surgery. Diet recommendations provided to patient verbally and in the form of handouts; they understood and agreed with plan. -Jardiance and Trulicity -Discussed cessation of the following prior to and after surgery: carbonation, caffeine, NSAIDs, alcohol, tobacco. Patient understood and agreed. --HTN: stable, continue meds per outpatient providers --Diabetes, continue meds per outpatient providers --CKD: Ms. 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 --Sleep apnea: CPAP compliant --GERD: continue PPI --Fatty liver: continue lifestyle modifications, and plan for bariatric surgery. Follow up with PCP for further management and follow up Advised patient to continue to adhere to regular monthly visits to meet the requirements of the insurance company. Additionally, they must adopt meal plan recommendations to demonstrate readiness for the changes that will be required following surgery. Patient's eating behaviors does demonstrates adoption of eating plan recommendations. Physician diet recommendations provided to the patient. Plan of care discussed with patient, all questions answered, they agree with plan of care. Medical decision making: Patient's medical conditions place them at a moderate risk of complications, morbidity, and mortality. Patient: [x] To return in one month for follow up [] Has completed insurance required monthly diet and exercise series [] Needs to continue monthly visits until authorization/surgery date obtained. (Matheson) No orders of the defined types were placed in this encounter. Current Meds Patient's Medications New Prescriptions No medications on file Previous Medications AMITRIPTYLINE (ELAVIL) 150 MG TABLET Take 150 mg by mouth Nightly. BUSPIRONE (BUSPAR) 10 MG TABLET Take 10 mg by mouth 3 times daily. CHOLECALCIFEROL (VITAMIN D-3) 1.25 MG (56921 UT) CAPSULE Take 50,000 Units by mouth 1 (one) time per week. CYANOCOBALAMIN (VITAMIN B-12 IJ) Inject as directed every 30 (thirty) days. DULOXETINE (CYMBALTA) [address] CAPSULE Take 120 mg by mouth daily. FOLIC ACID (FOLVITE) 1 MG TABLET Take 1,000 mcg by mouth daily. INSULIN LISPRO (HUMALOG) 100 UNIT/ML INJECTION 12 Units 3 times daily. Plus sliding scale JARDIANCE 10 MG Take 10 mg by mouth daily. LATANOPROST (XALATAN) 0.005 % OPHTHALMIC SOLUTION 1 drop before bedtime. LINZESS 145 MCG CAPSULE daily. LISINOPRIL 2.5 MG TABLET Take 2.5 mg by mouth daily. LORATADINE (CLARITIN) 10 MG TABLET Take 10 mg by mouth daily. METOCLOPRAMIDE (REGLAN) 5 MG TABLET 5 mg 3 times daily. MULTIPLE VITAMINS-MINERALS (PRESERVISION AREDS 2 PO) Take by mouth 2 times daily. PANTOPRAZOLE (PROTONIX) 40 MG EC TABLET Take 40 mg by mouth at noon and 40 mg in the evening. PREGABALIN (LYRICA) 50 MG CAPSULE Take 50 mg by mouth at noon and 50 mg in the evening. RESPIRATORY THERAPY SUPPLIES (CARETOUCH CPAP & BIPAP HOSE) MISC Nightly. RIMEGEPANT SULFATE 75 MG TABLET DISPERSIBLE Take 75 mg by mouth. As needed TRESIBA FLEXTOUCH 100 UNIT/ML INJECTION 40 Units Nightly. TRULICITY 4.5 MG/0.5ML SOLUTION PEN-INJECTOR 4.5 mg 1 (one) time per week. URSODIOL (ACTIGALL) 250 MG TABLET Take 250 mg by mouth 2 times daily. VITAMIN E 180 MG (400 UNIT) CAPSULE Take 2 capsules by mouth at noon and 2 capsules in the evening. Modified Medications No medications on file Discontinued Medications No medications on file I reviewed all of the patient's medications and diagnoses listed in Epic. documented in this encounter [facility] 07-12-2023 Telephone encounter Note Got her, spoke with patient, she was confirming future appts. [facility] 07-11-2023 Telephone encounter Note Patient left me a VM, I think she is ret your call Otnja. [facility] 07-11-2023 Miscellaneous Notes Patient left me a VM, I think she is ret your call Tonja. 2nd voicemail asking for a call back for scheduling. Lvm asking patient to call us back to schedule with MB Please call patient to schedule bna fu with MB, thanks! Spoke with patient, she has been rescheduled for 07/[address] [place] [address] Bang. Please call patient to schedule d/e with Dr. Bang. Patient no showed April visit which was her 2nd. Spoke to patient on the phone and let her know that someone would reach out for scheduling. Authorization for Testing Initiated. Company Name & Number Contacted for Auth: [facility] Name of Pain Management Physician: Laxmi Hernandez Name of Procedure: GES Cpt Code: 08457 Diagnosis Code: E11.9, K30 Location of Procedure: Is Auth Required: Call Reference #: [id number] Pending Case #: Clinical Reviewer: Additional Info if given: Approved Case reference: [id number] Date Range for Approved Auth: 06/28/2023 - 08/12/2023 Test scheduled 06/30/2023, last dose of Trulicty was 06/19/2023. Insurance verification - Kareen @ [phone] called and given approval #. Called pt. Reviewed EGD findings. Discussed order for GES. To hold GLP1 dose for 7 days prior to test. Pt verbalized understanding. Given phone number for Central Scheduling. Addended by: BERNADINE ALVARADO on: 06/23/2023 10:09 AM Modules accepted: Orders Endoscopic Findings: Esophagus: Grossly normal to GE junction Esophagogastric junction: There was mild esophagitis, biopsy not taken due to significant food burden in stomach as below Stomach: Mild gastritis noted in the antrum, biopsies taken for H. Pylori with a cold forceps. There was a large amount of food in the stomach. Duodenum: Grossly normal, without ulcers or other lesions Note, the procedure was significantly obscured by food. Due to aspiration risk, the esophagus was not biopsied, this was due to minimal inflammation as well as the large food burden and aspiration risk for further time under anesthesia. GES ordered per TB. Orders mailed Addended by: BERNADINE ALVARADO on: 02/28/2023 08:37 AM Modules accepted: Orders Orders signed. Pt did have EGD 09/16. Will discuss need to repeat with TB. Addended by: ALLEGRA PALOMARES on: 02/26/2023 12:56 PM Modules accepted: Orders Orders pended, Pre-op checklist scanned, EGD order sent to [facility] Encounter Diagnoses Name Primary? BENTLEY (obstructive sleep apnea) Yes Primary hypertension Gastroesophageal reflux disease without esophagitis Type 2 diabetes mellitus without complication, unspecified whether predatory animal exterminator insulin use (HCC) I have recommended proceeding with the evaluation and work-up for the primary procedure as outlined below: Requested records from GI Specialist Dr. Latesha Faulkner PATIENT SUMMARY Shawnee Mohr 68 y.o. female with Body mass index is 43.36 kg/m . Laparoscopic Mat-en-Y Gastric Bypass and Laparoscopic Liver Biopsy DM[x] HTN[x] BENTLEY[x] GERD[x] HL[x] OA[] Date of Surgery: TBD ANNMARIECATHIEMILDRED EPPERSON INITIAL TESTING RESULTS Labwork [x] CMP, TSH, Fasting Lipid Profile, Mg, Zinc, Vit B1 (whole blood), Vit B12, 25-OH Vit D, Fe, Ferritin, Folate Tobacco [x] Serum Nicotine / Cotinine [] Negative [] Positive PLEASE ADD SERUM NICOTINE/COTININE WITH INITIAL LABS ON ALL LRYGB PROCEDURES EGD [x] Dx: [] GERD [x] Dyspepsia [] Other Pathology [x] H. pylori [] Negative [] Positive UGI [] [] not ordered US Abdomen [x] [] not ordered BENTLEY eval [] [] On CPAP / Obtain settings Hematology [] [] Hypercoagulation panel Toxicology [] [] Urine drug screen [] EtOH screen Addtional [x] [x] Hgb A1c INITIAL CONSULTATIONS CLEARANCE / MANAGEMENT Psychology [x] Dietitian [x] Cardiology [x] Pulmonary [x] Others [] []Heme/Onc []Psychiatry []Pain mgmt PSD [x] Physician supervised diet: []None [x]3 mos []6 mos Preop diet [x] Preop low calorie diet: []None []1 wk [x]2 wks FINAL PRE-OP TESTING RESULTS Labwork [x] [x]Pre-op CBC [x]BMP []Serum Nicotine / Cotinine EKG [x] CXR [x] POST-OP MEDICATIONS Ulcer Ppx [x] Omeprazole 20 mg PO [x]QD []BID Gallstone Ppx [x] Ursodiol 300 mg [x]BID DVT Ppx [x] DVT prophylaxis per final preop visit estimated risk Estimated calculated risk: % Schedule final pre-operative office visit with surgeon, pre-operative education class, and pre-operative exercise class prior to date of surgery ATTESTATION I reviewed with the patient the details of the proposed operation. The risks benefits and options were discussed. Risks included but were not limited to bleeding, infection, damage to other surrounding organs, cardio-pulmonary complications related to anesthesia, conversion from laparoscopic to and open procedure, the need for reoperative or endoscopic therapy, the potential for prolonged mechanical ventilation, and . All questions were fully answered to the patient's satisfaction and they wish to proceed with surgical intervention. Greater than 51% of the 45 minute visit was spent as face to face encounter, counseling the patient and discussing the risks,benefits and options of surgery as well as the perioperative care plan. The patient was seen and examined independently and relevant data including a full chart rreview was performed by myself. Initial New [facility] surgical patient Navigation & Financial Counseling Discussion Patient Communication: In office SURGEON: [] JCrispin [] AD [] MP [x] TB [] LM PROCEDURE: [] LRYGB [] LSG [] SAYRA-S [] SAYRA [] UNDECIDED [] REV: SPECIFY: Confirmed pt wants to continue with surgical program/plan [] YES [] NO (complete program withdrawal note/process) CO-MORBIDS: [] NONE [] DM []HTN [] BENTLEY []GERD [] OTH: PRIVATE PAY: [] NO []YES DATE OF INITIAL BENEFITS VERIFICATION: TRANSFER FU: [] YES [] NO PRIMARY INSURANCE: Payor: [employer] MEDICARE / Plan: UHC AARP MEDICARE ADVANTAGE [id number] / Product Type: Medicare HMO / BENEFIT ON PLAN: [] NO [] YES BENEFIT MAX: [] NO [] YES -- BENEFIT MAX: $ EMPLOYER: DIET AND EXERCISE (DE) REQUIREMENT PRIMARY [] NONE [x]3M [] 6M []9M [] Medicare 4 Months [] SPR (3M) []OTHER: SECONDARY INSURANCE: BENEFIT ON PLAN: [] NO [] YES BENEFIT MAX: [] NO [] YES -- BENEFIT MAX: $ AUTH REQUIRED FROM SECONDARY [] NO [] YES DIET AND EXERCISE REQUIREMENT SECONDARY [] NONE []3M [] 6M [] Medicare 4 months [] SPR (3M) []OTHER: ___ [x] Discussed with patient: Financial cost overview (document signed and pt given copy at new pt consult visit with surgeon), Initial appointments: Bariatric Nutrition Assessment (BNA) & Diet and Exercise (DE) Patient to look for yellow envelope in mail. This yellow envelope will contain orders for labs, testing and required clearances. Pt encouraged to complete early in program to prevent delays. Encourage blood work to be draw by 1st DE appointment. [x] Reviewed OOP cost, including: [] Optifast cost of approximately $130-140/week x weeks immediately prior to surgery - used to induce rapid weight loss which results in decrease in size of liver and therefore facilitates laparoscopically surgery approach. [x] Overview of inpatient admission benefits - estimated inpatient co-pays, deductibles and/or co-insurance - Estimated OOP costs form reviewed with patient, and copy given to patient at new pt visit. [x] Reviewed next steps with patient: 1) Scheduled at new pt surgeon visit: Licensing Worker (RD) for a Nutrition Assessment (BNA) and Pre-operative Diet and Exercise (DE) appointment #1. [x] Patient reminded to arrive 15 minutes early for check in. Late arrivals may need to be rescheduled. 2) Schedule: Diet and Exercise Apt #2 only scheduled after initial BNA and DE completed, 3) Behavioral Health apt scheduled after DE started. Reviewed rational and goal of Behavioral Health appointments. 4) [x] Reinforced need to cancel any WMI appointments 48 hours in advance. Cautioned NS/Same day cancellations may result in delay in program or program completion hold. Noted: DE series needs to be a monthly series or insurance company may require repeat of the entire series. 5) [x] Smoker/tobacco products including vaping: reviewed need for cessation before surgery clearance and life long abstinence after surgery for best outcomes. Patient navigation to surgery: [x] Explained to patient that average time from initial consult to date of surgery can be 6-8 months. - Process can take longer if there are cancelled appointments, delays in testing and/or additional clearances that needs to be completed. - Reviewed importance of patient active engagement in making and keeping appointments to keep the process moving. - Reinforced need to cancel appointments at least 48 hours in advance. Reviewed that instances of No Shows and Same Day Appointment Cancellations may result in program/surgery delay or hold. [x] Patient advised of importance of having voicemail and MyChart for office communications and lab/testing results before and after surgery. documented in this encounter [facility] 07-08-2023 Telephone encounter Note 2nd voicemail asking for a call back for scheduling. [facility] 07-08-2023 Miscellaneous Notes 2nd voicemail asking for a call back for scheduling. Lvm asking patient to call us back to schedule with KASEY Please call patient to schedule bna fu with MB, thanks! Spoke with patient, she has been rescheduled for 07/[address] [place] [address] Bang. Please call patient to schedule d/e with Dr. Bang. Patient no showed April visit which was her 2nd. Spoke to patient on the phone and let her know that someone would reach out for scheduling. Authorization for Testing Initiated. Company Name & Number Contacted for Auth: [facility] Name of Pain Management Physician: Laxmi Hernandez Name of Procedure: GES Cpt Code: 99011 Diagnosis Code: E11.9, K30 Location of Procedure: Is Auth Required: Call Reference #: [id number] Pending Case #: Clinical Reviewer: Additional Info if given: Approved Case reference: [id number] Date Range for Approved Auth: 06/28/2023 - 08/12/2023 Test scheduled 06/30/2023, last dose of Trulicty was 06/19/2023. Insurance verification - Kareen @ [phone] called and given approval #. Called pt. Reviewed EGD findings. Discussed order for GES. To hold GLP1 dose for 7 days prior to test. Pt verbalized understanding. Given phone number for Central Scheduling. Addended by: BERNADINE ALVARADO on: 06/23/2023 10:09 AM Modules accepted: Orders Endoscopic Findings: Esophagus: Grossly normal to GE junction Esophagogastric junction: There was mild esophagitis, biopsy not taken due to significant food burden in stomach as below Stomach: Mild gastritis noted in the antrum, biopsies taken for H. Pylori with a cold forceps. There was a large amount of food in the stomach. Duodenum: Grossly normal, without ulcers or other lesions Note, the procedure was significantly obscured by food. Due to aspiration risk, the esophagus was not biopsied, this was due to minimal inflammation as well as the large food burden and aspiration risk for further time under anesthesia. GES ordered per TB. Orders mailed Addended by: BERNADINE ALVARADO on: 02/28/2023 08:37 AM Modules accepted: Orders Orders signed. Pt did have EGD 09/16. Will discuss need to repeat with TB. Addended by: ALLEGRA PALOMARES on: 02/26/2023 12:56 PM Modules accepted: Orders Orders pended, Pre-op checklist scanned, EGD order sent to [facility] Encounter Diagnoses Name Primary? BENTLEY (obstructive sleep apnea) Yes Primary hypertension Gastroesophageal reflux disease without esophagitis Type 2 diabetes mellitus without complication, unspecified whether predatory animal exterminator insulin use (HCC) I have recommended proceeding with the evaluation and work-up for the primary procedure as outlined below: Requested records from GI Specialist Dr. Latesha Faulkner PATIENT SUMMARY Shawnee Mohr 68 y.o. female with Body mass index is 43.36 kg/m . Laparoscopic Mat-en-Y Gastric Bypass and Laparoscopic Liver Biopsy DM[x] HTN[x] BENTLEY[x] GERD[x] HL[x] OA[] Date of Surgery: TBD ALEXIS EPPERSON INITIAL TESTING RESULTS Labwork [x] CMP, TSH, Fasting Lipid Profile, Mg, Zinc, Vit B1 (whole blood), Vit B12, 25-OH Vit D, Fe, Ferritin, Folate Tobacco [x] Serum Nicotine / Cotinine [] Negative [] Positive PLEASE ADD SERUM NICOTINE/COTININE WITH INITIAL LABS ON ALL LRYGB PROCEDURES EGD [x] Dx: [] GERD [x] Dyspepsia [] Other Pathology [x] H. pylori [] Negative [] Positive UGI [] [] not ordered US Abdomen [x] [] not ordered BENTLEY eval [] [] On CPAP / Obtain settings Hematology [] [] Hypercoagulation panel Toxicology [] [] Urine drug screen [] EtOH screen Addtional [x] [x] Hgb A1c INITIAL CONSULTATIONS CLEARANCE / MANAGEMENT Psychology [x] Dietitian [x] Cardiology [x] Pulmonary [x] Others [] []Heme/Onc []Psychiatry []Pain mgmt PSD [x] Physician supervised diet: []None [x]3 mos []6 mos Preop diet [x] Preop low calorie diet: []None []1 wk [x]2 wks FINAL PRE-OP TESTING RESULTS Labwork [x] [x]Pre-op CBC [x]BMP []Serum Nicotine / Cotinine EKG [x] CXR [x] POST-OP MEDICATIONS Ulcer Ppx [x] Omeprazole 20 mg PO [x]QD []BID Gallstone Ppx [x] Ursodiol 300 mg [x]BID DVT Ppx [x] DVT prophylaxis per final preop visit estimated risk Estimated calculated risk: % Schedule final pre-operative office visit with surgeon, pre-operative education class, and pre-operative exercise class prior to date of surgery ATTESTATION I reviewed with the patient the details of the proposed operation. The risks benefits and options were discussed. Risks included but were not limited to bleeding, infection, damage to other surrounding organs, cardio-pulmonary complications related to anesthesia, conversion from laparoscopic to and open procedure, the need for reoperative or endoscopic therapy, the potential for prolonged mechanical ventilation, and . All questions were fully answered to the patient's satisfaction and they wish to proceed with surgical intervention. Greater than 51% of the 45 minute visit was spent as face to face encounter, counseling the patient and discussing the risks,benefits and options of surgery as well as the perioperative care plan. The patient was seen and examined independently and relevant data including a full chart rreview was performed by myself. Initial New [facility] surgical patient Navigation & Financial Counseling Discussion Patient Communication: In office SURGEON: [] JZ [] AD [] MP [x] TB [] LM PROCEDURE: [] LRYGB [] LSG [] SAYRA-S [] SAYRA [] UNDECIDED [] REV: SPECIFY: Confirmed pt wants to continue with surgical program/plan [] YES [] NO (complete program withdrawal note/process) CO-MORBIDS: [] NONE [] DM []HTN [] BENTLEY []GERD [] OTH: PRIVATE PAY: [] NO []YES DATE OF INITIAL BENEFITS VERIFICATION: TRANSFER FU: [] YES [] NO PRIMARY INSURANCE: Payor: [employer] MEDICARE / Plan: [facility] MEDICARE ADVANTAGE [id number] / Product Type: Medicare HMO / BENEFIT ON PLAN: [] NO [] YES BENEFIT MAX: [] NO [] YES -- BENEFIT MAX: $ EMPLOYER: DIET AND EXERCISE (DE) REQUIREMENT PRIMARY [] NONE [x]3M [] 6M []9M [] Medicare 4 Months [] SPR (3M) []OTHER: SECONDARY INSURANCE: BENEFIT ON PLAN: [] NO [] YES BENEFIT MAX: [] NO [] YES -- BENEFIT MAX: $ AUTH REQUIRED FROM SECONDARY [] NO [] YES DIET AND EXERCISE REQUIREMENT SECONDARY [] NONE []3M [] 6M [] Medicare 4 months [] SPR (3M) []OTHER: ___ [x] Discussed with patient: Financial cost overview (document signed and pt given copy at new pt consult visit with surgeon), Initial appointments: Bariatric Nutrition Assessment (BNA) & Diet and Exercise (DE) Patient to look for yellow envelope in mail. This yellow envelope will contain orders for labs, testing and required clearances. Pt encouraged to complete early in program to prevent delays. Encourage blood work to be draw by 1st DE appointment. [x] Reviewed OOP cost, including: [] Optifast cost of approximately $130-140/week x weeks immediately prior to surgery - used to induce rapid weight loss which results in decrease in size of liver and therefore facilitates laparoscopically surgery approach. [x] Overview of inpatient admission benefits - estimated inpatient co-pays, deductibles and/or co-insurance - Estimated OOP costs form reviewed with patient, and copy given to patient at new pt visit. [x] Reviewed next steps with patient: 1) Scheduled at new pt surgeon visit: Licensing Worker (RD) for a Nutrition Assessment (BNA) and Pre-operative Diet and Exercise (DE) appointment #1. [x] Patient reminded to arrive 15 minutes early for check in. Late arrivals may need to be rescheduled. 2) Schedule: Diet and Exercise Apt #2 only scheduled after initial BNA and DE completed, 3) Behavioral Health apt scheduled after DE started. Reviewed rational and goal of Behavioral Health appointments. 4) [x] Reinforced need to cancel any WMI appointments 48 hours in advance. Cautioned NS/Same day cancellations may result in delay in program or program completion hold. Noted: DE series needs to be a monthly series or insurance company may require repeat of the entire series. 5) [x] Smoker/tobacco products including vaping: reviewed need for cessation before surgery clearance and life long abstinence after surgery for best outcomes. Patient navigation to surgery: [x] Explained to patient that average time from initial consult to date of surgery can be 6-8 months. - Process can take longer if there are cancelled appointments, delays in testing and/or additional clearances that needs to be completed. - Reviewed importance of patient active engagement in making and keeping appointments to keep the process moving. - Reinforced need to cancel appointments at least 48 hours in advance. Reviewed that instances of No Shows and Same Day Appointment Cancellations may result in program/surgery delay or hold. [x] Patient advised of importance of having voicemail and MyChart for office communications and lab/testing results before and after surgery. documented in this encounter [facility] 07-06-2023 Telephone encounter Note Lvm asking patient to call us back to schedule with KASEY [facility] 07-06-2023 Miscellaneous Notes Lvm asking patient to call us back to schedule with KASEY Please call patient to schedule bna fu with KASEY, thanks! Spoke with patient, she has been rescheduled for 07/[address] [place] [address] Bang. Please call patient to schedule d/e with Dr. Bang. Patient no showed April visit which was her 2nd. Spoke to patient on the phone and let her know that someone would reach out for scheduling. Authorization for Testing Initiated. Company Name & Number Contacted for Auth: [facility] Name of Pain Management Physician: Laxmi Hernandez Name of Procedure: GES Cpt Code: 56759 Diagnosis Code: E11.9, K30 Location of Procedure: Is Auth Required: Call Reference #: [id number] Pending Case #: Clinical Reviewer: Additional Info if given: Approved Case reference: [id number] Date Range for Approved Auth: 06/28/2023 - 08/12/2023 Test scheduled 06/30/2023, last dose of Trulicty was 06/19/2023. Insurance verification - Kareen @ [phone] called and given approval #. Called pt. Reviewed EGD findings. Discussed order for GES. To hold GLP1 dose for 7 days prior to test. Pt verbalized understanding. Given phone number for Central Scheduling. Addended by: BERNADINE ALVARADO on: 06/23/2023 10:09 AM Modules accepted: Orders Endoscopic Findings: Esophagus: Grossly normal to GE junction Esophagogastric junction: There was mild esophagitis, biopsy not taken due to significant food burden in stomach as below Stomach: Mild gastritis noted in the antrum, biopsies taken for H. Pylori with a cold forceps. There was a large amount of food in the stomach. Duodenum: Grossly normal, without ulcers or other lesions Note, the procedure was significantly obscured by food. Due to aspiration risk, the esophagus was not biopsied, this was due to minimal inflammation as well as the large food burden and aspiration risk for further time under anesthesia. GES ordered per TB. Orders mailed Addended by: BERNADINE ALVARADO on: 02/28/2023 08:37 AM Modules accepted: Orders Orders signed. Pt did have EGD 09/16. Will discuss need to repeat with TB. Addended by: ALLEGRA PALOMARES on: 02/26/2023 12:56 PM Modules accepted: Orders Orders pended, Pre-op checklist scanned, EGD order sent to [facility] Encounter Diagnoses Name Primary? BENTLEY (obstructive sleep apnea) Yes Primary hypertension Gastroesophageal reflux disease without esophagitis Type 2 diabetes mellitus without complication, unspecified whether predatory animal exterminator insulin use (HCC) I have recommended proceeding with the evaluation and work-up for the primary procedure as outlined below: Requested records from GI Specialist Dr. Latesha Faulkner PATIENT SUMMARY Shawnee Mohr 68 y.o. female with Body mass index is 43.36 kg/m . Laparoscopic Mat-en-Y Gastric Bypass and Laparoscopic Liver Biopsy DM[x] HTN[x] BENTLEY[x] GERD[x] HL[x] OA[] Date of Surgery: TBD ALEXIS EPPERSON INITIAL TESTING RESULTS Labwork [x] CMP, TSH, Fasting Lipid Profile, Mg, Zinc, Vit B1 (whole blood), Vit B12, 25-OH Vit D, Fe, Ferritin, Folate Tobacco [x] Serum Nicotine / Cotinine [] Negative [] Positive PLEASE ADD SERUM NICOTINE/COTININE WITH INITIAL LABS ON ALL LRYGB PROCEDURES EGD [x] Dx: [] GERD [x] Dyspepsia [] Other Pathology [x] H. pylori [] Negative [] Positive UGI [] [] not ordered US Abdomen [x] [] not ordered BENTLEY eval [] [] On CPAP / Obtain settings Hematology [] [] Hypercoagulation panel Toxicology [] [] Urine drug screen [] EtOH screen Addtional [x] [x] Hgb A1c INITIAL CONSULTATIONS CLEARANCE / MANAGEMENT Psychology [x] Dietitian [x] Cardiology [x] Pulmonary [x] Others [] []Heme/Onc []Psychiatry []Pain mgmt PSD [x] Physician supervised diet: []None [x]3 mos []6 mos Preop diet [x] Preop low calorie diet: []None []1 wk [x]2 wks FINAL PRE-OP TESTING RESULTS Labwork [x] [x]Pre-op CBC [x]BMP []Serum Nicotine / Cotinine EKG [x] CXR [x] POST-OP MEDICATIONS Ulcer Ppx [x] Omeprazole 20 mg PO [x]QD []BID Gallstone Ppx [x] Ursodiol 300 mg [x]BID DVT Ppx [x] DVT prophylaxis per final preop visit estimated risk Estimated calculated risk: % Schedule final pre-operative office visit with surgeon, pre-operative education class, and pre-operative exercise class prior to date of surgery ATTESTATION I reviewed with the patient the details of the proposed operation. The risks benefits and options were discussed. Risks included but were not limited to bleeding, infection, damage to other surrounding organs, cardio-pulmonary complications related to anesthesia, conversion from laparoscopic to and open procedure, the need for reoperative or endoscopic therapy, the potential for prolonged mechanical ventilation, and . All questions were fully answered to the patient's satisfaction and they wish to proceed with surgical intervention. Greater than 51% of the 45 minute visit was spent as face to face encounter, counseling the patient and discussing the risks,benefits and options of surgery as well as the perioperative care plan. The patient was seen and examined independently and relevant data including a full chart rreview was performed by myself. Initial New [facility] surgical patient Navigation & Financial Counseling Discussion Patient Communication: In office SURGEON: [] KANNAN [] AD [] MP [x] TB [] LM PROCEDURE: [] LRYGB [] LSG [] SAYRA-S [] SAYRA [] UNDECIDED [] REV: SPECIFY: Confirmed pt wants to continue with surgical program/plan [] YES [] NO (complete program withdrawal note/process) CO-MORBIDS: [] NONE [] DM []HTN [] BENTLEY []GERD [] OTH: PRIVATE PAY: [] NO []YES DATE OF INITIAL BENEFITS VERIFICATION: TRANSFER FU: [] YES [] NO PRIMARY INSURANCE: Payor: [employer] MEDICARE / Plan: [facility] MEDICARE ADVANTAGE [id number] / Product Type: Medicare HMO / BENEFIT ON PLAN: [] NO [] YES BENEFIT MAX: [] NO [] YES -- BENEFIT MAX: $ EMPLOYER: DIET AND EXERCISE (DE) REQUIREMENT PRIMARY [] NONE [x]3M [] 6M []9M [] Medicare 4 Months [] SPR (3M) []OTHER: SECONDARY INSURANCE: BENEFIT ON PLAN: [] NO [] YES BENEFIT MAX: [] NO [] YES -- BENEFIT MAX: $ AUTH REQUIRED FROM SECONDARY [] NO [] YES DIET AND EXERCISE REQUIREMENT SECONDARY [] NONE []3M [] 6M [] Medicare 4 months [] SPR (3M) []OTHER: ___ [x] Discussed with patient: Financial cost overview (document signed and pt given copy at new pt consult visit with surgeon), Initial appointments: Bariatric Nutrition Assessment (BNA) & Diet and Exercise (DE) Patient to look for yellow envelope in mail. This yellow envelope will contain orders for labs, testing and required clearances. Pt encouraged to complete early in program to prevent delays. Encourage blood work to be draw by 1st DE appointment. [x] Reviewed OOP cost, including: [] Optifast cost of approximately $130-140/week x weeks immediately prior to surgery - used to induce rapid weight loss which results in decrease in size of liver and therefore facilitates laparoscopically surgery approach. [x] Overview of inpatient admission benefits - estimated inpatient co-pays, deductibles and/or co-insurance - Estimated OOP costs form reviewed with patient, and copy given to patient at new pt visit. [x] Reviewed next steps with patient: 1) Scheduled at new pt surgeon visit: Licensing Worker (RD) for a Nutrition Assessment (BNA) and Pre-operative Diet and Exercise (DE) appointment #1. [x] Patient reminded to arrive 15 minutes early for check in. Late arrivals may need to be rescheduled. 2) Schedule: Diet and Exercise Apt #2 only scheduled after initial BNA and DE completed, 3) Behavioral Health apt scheduled after DE started. Reviewed rational and goal of Behavioral Health appointments. 4) [x] Reinforced need to cancel any WMI appointments 48 hours in advance. Cautioned NS/Same day cancellations may result in delay in program or program completion hold. Noted: DE series needs to be a monthly series or insurance company may require repeat of the entire series. 5) [x] Smoker/tobacco products including vaping: reviewed need for cessation before surgery clearance and life long abstinence after surgery for best outcomes. Patient navigation to surgery: [x] Explained to patient that average time from initial consult to date of surgery can be 6-8 months. - Process can take longer if there are cancelled appointments, delays in testing and/or additional clearances that needs to be completed. - Reviewed importance of patient active engagement in making and keeping appointments to keep the process moving. - Reinforced need to cancel appointments at least 48 hours in advance. Reviewed that instances of No Shows and Same Day Appointment Cancellations may result in program/surgery delay or hold. [x] Patient advised of importance of having voicemail and MyChart for office communications and lab/testing results before and after surgery. documented in this encounter [facility] 07-05-2023 Telephone encounter Note Please call patient to schedule bna fu with MB, thanks! [facility] Miscellaneous Notes Please call patient to schedule bna fu with MB, thanks! Spoke with patient, she has been rescheduled for 07/[address] [place] [address] Bang. Please call patient to schedule d/e with Dr. Bang. Patient no showed April visit which was her 2nd. Spoke to patient on the phone and let her know that someone would reach out for scheduling. Authorization for Testing Initiated. Company Name & Number Contacted for Auth: [facility] Name of Pain Management Physician: Laxmi Hernandez Name of Procedure: GES Cpt Code: 02140 Diagnosis Code: E11.9, K30 Location of Procedure: Is Auth Required: Call Reference #: [id number] Pending Case #: Clinical Reviewer: Additional Info if given: Approved Case reference: [id number] Date Range for Approved Auth: 06/28/2023 - 08/12/2023 Test scheduled 06/30/2023, last dose of Trulicty was 06/19/2023. Insurance verification - Kareen @ [phone] called and given approval #. Called pt. Reviewed EGD findings. Discussed order for GES. To hold GLP1 dose for 7 days prior to test. Pt verbalized understanding. Given phone number for Central Scheduling. Addended by: BERNADINE ALVARADO on: 06/23/2023 10:09 AM Modules accepted: Orders Endoscopic Findings: Esophagus: Grossly normal to GE junction Esophagogastric junction: There was mild esophagitis, biopsy not taken due to significant food burden in stomach as below Stomach: Mild gastritis noted in the antrum, biopsies taken for H. Pylori with a cold forceps. There was a large amount of food in the stomach. Duodenum: Grossly normal, without ulcers or other lesions Note, the procedure was significantly obscured by food. Due to aspiration risk, the esophagus was not biopsied, this was due to minimal inflammation as well as the large food burden and aspiration risk for further time under anesthesia. GES ordered per TB. Orders mailed Addended by: BERNADINE ALVARADO on: 02/28/2023 08:37 AM Modules accepted: Orders Orders signed. Pt did have EGD 09/16. Will discuss need to repeat with TB. Addended by: ALLEGRA PALOMARES on: 02/26/2023 12:56 PM Modules accepted: Orders Orders pended, Pre-op checklist scanned, EGD order sent to [facility] PL[facility] Encounter Diagnoses Name Primary? BENTLEY (obstructive sleep apnea) Yes Primary hypertension Gastroesophageal reflux disease without esophagitis Type 2 diabetes mellitus without complication, unspecified whether predatory animal exterminator insulin use (HCC) I have recommended proceeding with the evaluation and work-up for the primary procedure as outlined below: Requested records from GI Specialist Dr. Latesha Faulkner PATIENT SUMMARY Shawnee Mohr 68 y.o. female with Body mass index is 43.36 kg/m . Laparoscopic Mat-en-Y Gastric Bypass and Laparoscopic Liver Biopsy DM[x] HTN[x] BENTLEY[x] GERD[x] HL[x] OA[] Date of Surgery: TBD ALEXIS EPPERSON INITIAL TESTING RESULTS Labwork [x] CMP, TSH, Fasting Lipid Profile, Mg, Zinc, Vit B1 (whole blood), Vit B12, 25-OH Vit D, Fe, Ferritin, Folate Tobacco [x] Serum Nicotine / Cotinine [] Negative [] Positive PLEASE ADD SERUM NICOTINE/COTININE WITH INITIAL LABS ON ALL LRYGB PROCEDURES EGD [x] Dx: [] GERD [x] Dyspepsia [] Other Pathology [x] H. pylori [] Negative [] Positive UGI [] [] not ordered US Abdomen [x] [] not ordered BENTLEY eval [] [] On CPAP / Obtain settings Hematology [] [] Hypercoagulation panel Toxicology [] [] Urine drug screen [] EtOH screen Addtional [x] [x] Hgb A1c INITIAL CONSULTATIONS CLEARANCE / MANAGEMENT Psychology [x] Dietitian [x] Cardiology [x] Pulmonary [x] Others [] []Heme/Onc []Psychiatry []Pain mgmt PSD [x] Physician supervised diet: []None [x]3 mos []6 mos Preop diet [x] Preop low calorie diet: []None []1 wk [x]2 wks FINAL PRE-OP TESTING RESULTS Labwork [x] [x]Pre-op CBC [x]BMP []Serum Nicotine / Cotinine EKG [x] CXR [x] POST-OP MEDICATIONS Ulcer Ppx [x] Omeprazole 20 mg PO [x]QD []BID Gallstone Ppx [x] Ursodiol 300 mg [x]BID DVT Ppx [x] DVT prophylaxis per final preop visit estimated risk Estimated calculated risk: % Schedule final pre-operative office visit with surgeon, pre-operative education class, and pre-operative exercise class prior to date of surgery ATTESTATION I reviewed with the patient the details of the proposed operation. The risks benefits and options were discussed. Risks included but were not limited to bleeding, infection, damage to other surrounding organs, cardio-pulmonary complications related to anesthesia, conversion from laparoscopic to and open procedure, the need for reoperative or endoscopic therapy, the potential for prolonged mechanical ventilation, and . All questions were fully answered to the patient's satisfaction and they wish to proceed with surgical intervention. Greater than 51% of the 45 minute visit was spent as face to face encounter, counseling the patient and discussing the risks,benefits and options of surgery as well as the perioperative care plan. The patient was seen and examined independently and relevant data including a full chart rreview was performed by myself. Initial New [facility] surgical patient Navigation & Financial Counseling Discussion Patient Communication: In office SURGEON: [] KANNAN [] AD [] MP [x] TB [] LM PROCEDURE: [] LRYGB [] LSG [] SAYRA-S [] SAYRA [] UNDECIDED [] REV: SPECIFY: Confirmed pt wants to continue with surgical program/plan [] YES [] NO (complete program withdrawal note/process) CO-MORBIDS: [] NONE [] DM []HTN [] BENTLEY []GERD [] OTH: PRIVATE PAY: [] NO []YES DATE OF INITIAL BENEFITS VERIFICATION: TRANSFER FU: [] YES [] NO PRIMARY INSURANCE: Payor: [employer] MEDICARE / Plan: [facility] MEDICARE ADVANTAGE [id number] / Product Type: Medicare HMO / BENEFIT ON PLAN: [] NO [] YES BENEFIT MAX: [] NO [] YES -- BENEFIT MAX: $ EMPLOYER: DIET AND EXERCISE (DE) REQUIREMENT PRIMARY [] NONE [x]3M [] 6M []9M [] Medicare 4 Months [] SPR (3M) []OTHER: SECONDARY INSURANCE: BENEFIT ON PLAN: [] NO [] YES BENEFIT MAX: [] NO [] YES -- BENEFIT MAX: $ AUTH REQUIRED FROM SECONDARY [] NO [] YES DIET AND EXERCISE REQUIREMENT SECONDARY [] NONE []3M [] 6M [] Medicare 4 months [] SPR (3M) []OTHER: ___ [x] Discussed with patient: Financial cost overview (document signed and pt given copy at new pt consult visit with surgeon), Initial appointments: Bariatric Nutrition Assessment (BNA) & Diet and Exercise (DE) Patient to look for yellow envelope in mail. This yellow envelope will contain orders for labs, testing and required clearances. Pt encouraged to complete early in program to prevent delays. Encourage blood work to be draw by 1st DE appointment. [x] Reviewed OOP cost, including: [] Optifast cost of approximately $130-140/week x weeks immediately prior to surgery - used to induce rapid weight loss which results in decrease in size of liver and therefore facilitates laparoscopically surgery approach. [x] Overview of inpatient admission benefits - estimated inpatient co-pays, deductibles and/or co-insurance - Estimated OOP costs form reviewed with patient, and copy given to patient at new pt visit. [x] Reviewed next steps with patient: 1) Scheduled at new pt surgeon visit: Licensing Worker (RD) for a Nutrition Assessment (BNA) and Pre-operative Diet and Exercise (DE) appointment #1. [x] Patient reminded to arrive 15 minutes early for check in. Late arrivals may need to be rescheduled. 2) Schedule: Diet and Exercise Apt #2 only scheduled after initial BNA and DE completed, 3) Behavioral Health apt scheduled after DE started. Reviewed rational and goal of Behavioral Health appointments. 4) [x] Reinforced need to cancel any WMI appointments 48 hours in advance. Cautioned NS/Same day cancellations may result in delay in program or program completion hold. Noted: DE series needs to be a monthly series or insurance company may require repeat of the entire series. 5) [x] Smoker/tobacco products including vaping: reviewed need for cessation before surgery clearance and life long abstinence after surgery for best outcomes. Patient navigation to surgery: [x] Explained to patient that average time from initial consult to date of surgery can be 6-8 months. - Process can take longer if there are cancelled appointments, delays in testing and/or additional clearances that needs to be completed. - Reviewed importance of patient active engagement in making and keeping appointments to keep the process moving. - Reinforced need to cancel appointments at least 48 hours in advance. Reviewed that instances of No Shows and Same Day Appointment Cancellations may result in program/surgery delay or hold. [x] Patient advised of importance of having voicemail and MyChart for office communications and lab/testing results before and after surgery. documented in this encounter [facility] 07-01-2023 Telephone encounter Note Spoke with patient, she has been rescheduled for 07/[address] [place] [address] Bang. [facility] 07-01-2023 Miscellaneous Notes Spoke with patient, she has been rescheduled for 07/[address] [place] [address] Bang. Please call patient to schedule d/e with Dr. Bang. Patient no showed April visit which was her 2nd. Spoke to patient on the phone and let her know that someone would reach out for scheduling. Authorization for Testing Initiated. Company Name & Number Contacted for Auth: [facility] Name of Pain Management Physician: Laxmi Hernandez Name of Procedure: GES Cpt Code: 43241 Diagnosis Code: E11.9, K30 Location of Procedure: Is Auth Required: Call Reference #: [id number] Pending Case #: Clinical Reviewer: Additional Info if given: Approved Case reference: [id number] Date Range for Approved Auth: 06/28/2023 - 08/12/2023 Test scheduled 06/30/2023, last dose of Trulicty was 06/19/2023. Insurance verification - Kareen @ [phone] called and given approval #. Called pt. Reviewed EGD findings. Discussed order for GES. To hold GLP1 dose for 7 days prior to test. Pt verbalized understanding. Given phone number for Central Scheduling. Addended by: BERNADINE ALVARADO on: 06/23/2023 10:09 AM Modules accepted: Orders Endoscopic Findings: Esophagus: Grossly normal to GE junction Esophagogastric junction: There was mild esophagitis, biopsy not taken due to significant food burden in stomach as below Stomach: Mild gastritis noted in the antrum, biopsies taken for H. Pylori with a cold forceps. There was a large amount of food in the stomach. Duodenum: Grossly normal, without ulcers or other lesions Note, the procedure was significantly obscured by food. Due to aspiration risk, the esophagus was not biopsied, this was due to minimal inflammation as well as the large food burden and aspiration risk for further time under anesthesia. GES ordered per TB. Orders mailed Addended by: BERNADINE ALVARADO on: 02/28/2023 08:37 AM Modules accepted: Orders Orders signed. Pt did have EGD 09/16. Will discuss need to repeat with TB. Addended by: ALLEGRA PALOMARES on: 02/26/2023 12:56 PM Modules accepted: Orders Orders pended, Pre-op checklist scanned, EGD order sent to [facility] Encounter Diagnoses Name Primary? BENTLEY (obstructive sleep apnea) Yes Primary hypertension Gastroesophageal reflux disease without esophagitis Type 2 diabetes mellitus without complication, unspecified whether predatory animal exterminator insulin use (HCC) I have recommended proceeding with the evaluation and work-up for the primary procedure as outlined below: Requested records from GI Specialist Dr. Latesha Faulkner PATIENT SUMMARY Shawnee Mohr 68 y.o. female with Body mass index is 43.36 kg/m . Laparoscopic Mat-en-Y Gastric Bypass and Laparoscopic Liver Biopsy DM[x] HTN[x] BENTLEY[x] GERD[x] HL[x] OA[] Date of Surgery: TBD ALEXIS EPPERSON INITIAL TESTING RESULTS Labwork [x] CMP, TSH, Fasting Lipid Profile, Mg, Zinc, Vit B1 (whole blood), Vit B12, 25-OH Vit D, Fe, Ferritin, Folate Tobacco [x] Serum Nicotine / Cotinine [] Negative [] Positive PLEASE ADD SERUM NICOTINE/COTININE WITH INITIAL LABS ON ALL LRYGB PROCEDURES EGD [x] Dx: [] GERD [x] Dyspepsia [] Other Pathology [x] H. pylori [] Negative [] Positive UGI [] [] not ordered US Abdomen [x] [] not ordered BENTLEY eval [] [] On CPAP / Obtain settings Hematology [] [] Hypercoagulation panel Toxicology [] [] Urine drug screen [] EtOH screen Addtional [x] [x] Hgb A1c INITIAL CONSULTATIONS CLEARANCE / MANAGEMENT Psychology [x] Dietitian [x] Cardiology [x] Pulmonary [x] Others [] []Heme/Onc []Psychiatry []Pain mgmt PSD [x] Physician supervised diet: []None [x]3 mos []6 mos Preop diet [x] Preop low calorie diet: []None []1 wk [x]2 wks FINAL PRE-OP TESTING RESULTS Labwork [x] [x]Pre-op CBC [x]BMP []Serum Nicotine / Cotinine EKG [x] CXR [x] POST-OP MEDICATIONS Ulcer Ppx [x] Omeprazole 20 mg PO [x]QD []BID Gallstone Ppx [x] Ursodiol 300 mg [x]BID DVT Ppx [x] DVT prophylaxis per final preop visit estimated risk Estimated calculated risk: % Schedule final pre-operative office visit with surgeon, pre-operative education class, and pre-operative exercise class prior to date of surgery ATTESTATION I reviewed with the patient the details of the proposed operation. The risks benefits and options were discussed. Risks included but were not limited to bleeding, infection, damage to other surrounding organs, cardio-pulmonary complications related to anesthesia, conversion from laparoscopic to and open procedure, the need for reoperative or endoscopic therapy, the potential for prolonged mechanical ventilation, and . All questions were fully answered to the patient's satisfaction and they wish to proceed with surgical intervention. Greater than 51% of the 45 minute visit was spent as face to face encounter, counseling the patient and discussing the risks,benefits and options of surgery as well as the perioperative care plan. The patient was seen and examined independently and relevant data including a full chart rreview was performed by myself. Initial New [facility] surgical patient Navigation & Financial Counseling Discussion Patient Communication: In office SURGEON: [] JCrispin [] AD [] MP [x] TB [] LM PROCEDURE: [] LRYGB [] LSG [] SAYRA-S [] SAYRA [] UNDECIDED [] REV: SPECIFY: Confirmed pt wants to continue with surgical program/plan [] YES [] NO (complete program withdrawal note/process) CO-MORBIDS: [] NONE [] DM []HTN [] BENTLEY []GERD [] OTH: PRIVATE PAY: [] NO []YES DATE OF INITIAL BENEFITS VERIFICATION: TRANSFER FU: [] YES [] NO PRIMARY INSURANCE: Payor: [facility] MEDICARE / Plan: [facility] MEDICARE ADVANTAGE [id number] / Product Type: Medicare HMO / BENEFIT ON PLAN: [] NO [] YES BENEFIT MAX: [] NO [] YES -- BENEFIT MAX: $ EMPLOYER: DIET AND EXERCISE (DE) REQUIREMENT PRIMARY [] NONE [x]3M [] 6M []9M [] Medicare 4 Months [] SPR (3M) []OTHER: SECONDARY INSURANCE: BENEFIT ON PLAN: [] NO [] YES BENEFIT MAX: [] NO [] YES -- BENEFIT MAX: $ AUTH REQUIRED FROM SECONDARY [] NO [] YES DIET AND EXERCISE REQUIREMENT SECONDARY [] NONE []3M [] 6M [] Medicare 4 months [] SPR (3M) []OTHER: ___ [x] Discussed with patient: Financial cost overview (document signed and pt given copy at new pt consult visit with surgeon), Initial appointments: Bariatric Nutrition Assessment (BNA) & Diet and Exercise (DE) Patient to look for yellow envelope in mail. This yellow envelope will contain orders for labs, testing and required clearances. Pt encouraged to complete early in program to prevent delays. Encourage blood work to be draw by 1st DE appointment. [x] Reviewed OOP cost, including: [] Optifast cost of approximately $130-140/week x weeks immediately prior to surgery - used to induce rapid weight loss which results in decrease in size of liver and therefore facilitates laparoscopically surgery approach. [x] Overview of inpatient admission benefits - estimated inpatient co-pays, deductibles and/or co-insurance - Estimated OOP costs form reviewed with patient, and copy given to patient at new pt visit. [x] Reviewed next steps with patient: 1) Scheduled at new pt surgeon visit: Licensing Worker (RD) for a Nutrition Assessment (BNA) and Pre-operative Diet and Exercise (DE) appointment #1. [x] Patient reminded to arrive 15 minutes early for check in. Late arrivals may need to be rescheduled. 2) Schedule: Diet and Exercise Apt #2 only scheduled after initial BNA and DE completed, 3) Behavioral Health apt scheduled after DE started. Reviewed rational and goal of Behavioral Health appointments. 4) [x] Reinforced need to cancel any WMI appointments 48 hours in advance. Cautioned NS/Same day cancellations may result in delay in program or program completion hold. Noted: DE series needs to be a monthly series or insurance company may require repeat of the entire series. 5) [x] Smoker/tobacco products including vaping: reviewed need for cessation before surgery clearance and life long abstinence after surgery for best outcomes. Patient navigation to surgery: [x] Explained to patient that average time from initial consult to date of surgery can be 6-8 months. - Process can take longer if there are cancelled appointments, delays in testing and/or additional clearances that needs to be completed. - Reviewed importance of patient active engagement in making and keeping appointments to keep the process moving. - Reinforced need to cancel appointments at least 48 hours in advance. Reviewed that instances of No Shows and Same Day Appointment Cancellations may result in program/surgery delay or hold. [x] Patient advised of importance of having voicemail and MyChart for office communications and lab/testing results before and after surgery. documented in this encounter [facility] 07-01-2023 Telephone encounter Note Please call patient to schedule d/e with Dr. Bang. Patient no showed April visit which was her 2nd. Spoke to patient on the phone and let her know that someone would reach out for scheduling. [facility] 06-30-2023 Telephone encounter Note Pt. Calling to confirm appt. for 06.30.23 at 8:00am [facility] 06-30-2023 Miscellaneous Notes Pt. Calling to confirm appt. for 06.30.23 at 8:00am documented in this encounter [facility] 06-28-2023 Telephone encounter Note Authorization for Testing Initiated. Company Name & Number Contacted for Auth: [facility] Name of Pain Management Physician: Laxmi Hernandez Name of Procedure: GES Cpt Code: 62696 Diagnosis Code: E11.9, K30 Location of Procedure: Is Auth Required: Call Reference #: [id number] Pending Case #: Clinical Reviewer: Additional Info if given: Approved Case reference: [id number] Date Range for Approved Auth: 06/28/2023 - 08/12/2023 Test scheduled 06/30/2023, last dose of Trulicty was 06/19/2023. Insurance verification - Kareen @ [phone] called and given approval #. [facility] 06-28-2023 Miscellaneous Notes Authorization for Testing Initiated. Company Name & Number Contacted for Auth: [facility] Name of Pain Management Physician: Laxmi Hernandez Name of Procedure: GES Cpt Code: 19956 Diagnosis Code: E11.9, K30 Location of Procedure: Is Auth Required: Call Reference #: [id number] Pending Case #: Clinical Reviewer: Additional Info if given: Approved Case reference: [id number] Date Range for Approved Auth: 06/28/2023 - 08/12/2023 Test scheduled 06/30/2023, last dose of Trulicty was 06/19/2023. Insurance verification - Kareen @ [phone] called and given approval #. Called pt. Reviewed EGD findings. Discussed order for GES. To hold GLP1 dose for 7 days prior to test. Pt verbalized understanding. Given phone number for Central Scheduling. Addended by: BERNADINE ALVARADO on: 06/23/2023 10:09 AM Modules accepted: Orders Endoscopic Findings: Esophagus: Grossly normal to GE junction Esophagogastric junction: There was mild esophagitis, biopsy not taken due to significant food burden in stomach as below Stomach: Mild gastritis noted in the antrum, biopsies taken for H. Pylori with a cold forceps. There was a large amount of food in the stomach. Duodenum: Grossly normal, without ulcers or other lesions Note, the procedure was significantly obscured by food. Due to aspiration risk, the esophagus was not biopsied, this was due to minimal inflammation as well as the large food burden and aspiration risk for further time under anesthesia. GES ordered per TB. Orders mailed Addended by: BERNADINE ALVARADO on: 02/28/2023 08:37 AM Modules accepted: Orders Orders signed. Pt did have EGD 09/16. Will discuss need to repeat with TB. Addended by: ALLEGRA PALOMARES on: 02/26/2023 12:56 PM Modules accepted: Orders Orders pended, Pre-op checklist scanned, EGD order sent to ALS PLAN Encounter Diagnoses Name Primary? BENTLEY (obstructive sleep apnea) Yes Primary hypertension Gastroesophageal reflux disease without esophagitis Type 2 diabetes mellitus without complication, unspecified whether predatory animal exterminator insulin use (HCC) I have recommended proceeding with the evaluation and work-up for the primary procedure as outlined below: Requested records from GI Specialist Dr. Latesha Faulkner PATIENT SUMMARY Shawnee Mohr 68 y.o. female with Body mass index is 43.36 kg/m . Laparoscopic Mat-en-Y Gastric Bypass and Laparoscopic Liver Biopsy DM[x] HTN[x] BENTLEY[x] GERD[x] HL[x] OA[] Date of Surgery: TBD ALEXIS EPPERSON INITIAL TESTING RESULTS Labwork [x] CMP, TSH, Fasting Lipid Profile, Mg, Zinc, Vit B1 (whole blood), Vit B12, 25-OH Vit D, Fe, Ferritin, Folate Tobacco [x] Serum Nicotine / Cotinine [] Negative [] Positive PLEASE ADD SERUM NICOTINE/COTININE WITH INITIAL LABS ON ALL LRYGB PROCEDURES EGD [x] Dx: [] GERD [x] Dyspepsia [] Other Pathology [x] H. pylori [] Negative [] Positive UGI [] [] not ordered US Abdomen [x] [] not ordered BENTLEY eval [] [] On CPAP / Obtain settings Hematology [] [] Hypercoagulation panel Toxicology [] [] Urine drug screen [] EtOH screen Addtional [x] [x] Hgb A1c INITIAL CONSULTATIONS CLEARANCE / MANAGEMENT Psychology [x] Dietitian [x] Cardiology [x] Pulmonary [x] Others [] []Heme/Onc []Psychiatry []Pain mgmt PSD [x] Physician supervised diet: []None [x]3 mos []6 mos Preop diet [x] Preop low calorie diet: []None []1 wk [x]2 wks FINAL PRE-OP TESTING RESULTS Labwork [x] [x]Pre-op CBC [x]BMP []Serum Nicotine / Cotinine EKG [x] CXR [x] POST-OP MEDICATIONS Ulcer Ppx [x] Omeprazole 20 mg PO [x]QD []BID Gallstone Ppx [x] Ursodiol 300 mg [x]BID DVT Ppx [x] DVT prophylaxis per final preop visit estimated risk Estimated calculated risk: % Schedule final pre-operative office visit with surgeon, pre-operative education class, and pre-operative exercise class prior to date of surgery ATTESTATION I reviewed with the patient the details of the proposed operation. The risks benefits and options were discussed. Risks included but were not limited to bleeding, infection, damage to other surrounding organs, cardio-pulmonary complications related to anesthesia, conversion from laparoscopic to and open procedure, the need for reoperative or endoscopic therapy, the potential for prolonged mechanical ventilation, and . All questions were fully answered to the patient's satisfaction and they wish to proceed with surgical intervention. Greater than 51% of the 45 minute visit was spent as face to face encounter, counseling the patient and discussing the risks,benefits and options of surgery as well as the perioperative care plan. The patient was seen and examined independently and relevant data including a full chart rreview was performed by myself. Initial New [facility] surgical patient Navigation & Financial Counseling Discussion Patient Communication: In office SURGEON: [] KANNAN [] AD [] MP [x] TB [] LM PROCEDURE: [] LRYGB [] LSG [] SAYRA-S [] SAYRA [] UNDECIDED [] REV: SPECIFY: Confirmed pt wants to continue with surgical program/plan [] YES [] NO (complete program withdrawal note/process) CO-MORBIDS: [] NONE [] DM []HTN [] BENTLEY []GERD [] OTH: PRIVATE PAY: [] NO []YES DATE OF INITIAL BENEFITS VERIFICATION: TRANSFER FU: [] YES [] NO PRIMARY INSURANCE: Payor: [employer] MEDICARE / Plan: [facility] MEDICARE ADVANTAGE [id number] / Product Type: Medicare HMO / BENEFIT ON PLAN: [] NO [] YES BENEFIT MAX: [] NO [] YES -- BENEFIT MAX: $ EMPLOYER: DIET AND EXERCISE (DE) REQUIREMENT PRIMARY [] NONE [x]3M [] 6M []9M [] Medicare 4 Months [] SPR (3M) []OTHER: SECONDARY INSURANCE: BENEFIT ON PLAN: [] NO [] YES BENEFIT MAX: [] NO [] YES -- BENEFIT MAX: $ AUTH REQUIRED FROM SECONDARY [] NO [] YES DIET AND EXERCISE REQUIREMENT SECONDARY [] NONE []3M [] 6M [] Medicare 4 months [] SPR (3M) []OTHER: ___ [x] Discussed with patient: Financial cost overview (document signed and pt given copy at new pt consult visit with surgeon), Initial appointments: Bariatric Nutrition Assessment (BNA) & Diet and Exercise (DE) Patient to look for yellow envelope in mail. This yellow envelope will contain orders for labs, testing and required clearances. Pt encouraged to complete early in program to prevent delays. Encourage blood work to be draw by 1st DE appointment. [x] Reviewed OOP cost, including: [] Optifast cost of approximately $130-140/week x weeks immediately prior to surgery - used to induce rapid weight loss which results in decrease in size of liver and therefore facilitates laparoscopically surgery approach. [x] Overview of inpatient admission benefits - estimated inpatient co-pays, deductibles and/or co-insurance - Estimated OOP costs form reviewed with patient, and copy given to patient at new pt visit. [x] Reviewed next steps with patient: 1) Scheduled at new pt surgeon visit: Licensing Worker (RD) for a Nutrition Assessment (BNA) and Pre-operative Diet and Exercise (DE) appointment #1. [x] Patient reminded to arrive 15 minutes early for check in. Late arrivals may need to be rescheduled. 2) Schedule: Diet and Exercise Apt #2 only scheduled after initial BNA and DE completed, 3) Behavioral Health apt scheduled after DE started. Reviewed rational and goal of Behavioral Health appointments. 4) [x] Reinforced need to cancel any WMI appointments 48 hours in advance. Cautioned NS/Same day cancellations may result in delay in program or program completion hold. Noted: DE series needs to be a monthly series or insurance company may require repeat of the entire series. 5) [x] Smoker/tobacco products including vaping: reviewed need for cessation before surgery clearance and life long abstinence after surgery for best outcomes. Patient navigation to surgery: [x] Explained to patient that average time from initial consult to date of surgery can be 6-8 months. - Process can take longer if there are cancelled appointments, delays in testing and/or additional clearances that needs to be completed. - Reviewed importance of patient active engagement in making and keeping appointments to keep the process moving. - Reinforced need to cancel appointments at least 48 hours in advance. Reviewed that instances of No Shows and Same Day Appointment Cancellations may result in program/surgery delay or hold. [x] Patient advised of importance of having voicemail and MyChart for office communications and lab/testing results before and after surgery. documented in this encounter [facility] 06-27-2023 Telephone encounter Note Called pt. Reviewed EGD findings. Discussed order for GES. To hold GLP1 dose for 7 days prior to test. Pt verbalized understanding. Given phone number for Central Scheduling. [facility] 06-27-2023 Miscellaneous Notes Called pt. Reviewed EGD findings. Discussed order for GES. To hold GLP1 dose for 7 days prior to test. Pt verbalized understanding. Given phone number for Central Scheduling. Addended by: BERNADINE ALVARADO on: 06/23/2023 10:09 AM Modules accepted: Orders Endoscopic Findings: Esophagus: Grossly normal to GE junction Esophagogastric junction: There was mild esophagitis, biopsy not taken due to significant food burden in stomach as below Stomach: Mild gastritis noted in the antrum, biopsies taken for H. Pylori with a cold forceps. There was a large amount of food in the stomach. Duodenum: Grossly normal, without ulcers or other lesions Note, the procedure was significantly obscured by food. Due to aspiration risk, the esophagus was not biopsied, this was due to minimal inflammation as well as the large food burden and aspiration risk for further time under anesthesia. GES ordered per TB. Orders mailed Addended by: BERNADINE ALVARADO on: 02/28/2023 08:37 AM Modules accepted: Orders Orders signed. Pt did have EGD 09/16. Will discuss need to repeat with TB. Addended by: ALLEGRA PALOMARES on: 02/26/2023 12:56 PM Modules accepted: Orders Orders pended, Pre-op checklist scanned, EGD order sent to ALS PLAN Encounter Diagnoses Name Primary? BENTLEY (obstructive sleep apnea) Yes Primary hypertension Gastroesophageal reflux disease without esophagitis Type 2 diabetes mellitus without complication, unspecified whether predatory animal exterminator insulin use (HCC) I have recommended proceeding with the evaluation and work-up for the primary procedure as outlined below: Requested records from GI Specialist Dr. Latesha Faulkner PATIENT SUMMARY Shawnee Mohr 68 y.o. female with Body mass index is 43.36 kg/m . Laparoscopic Mat-en-Y Gastric Bypass and Laparoscopic Liver Biopsy DM[x] HTN[x] BENTLEY[x] GERD[x] HL[x] OA[] Date of Surgery: TBD ALEXIS EPPERSON INITIAL TESTING RESULTS Labwork [x] CMP, TSH, Fasting Lipid Profile, Mg, Zinc, Vit B1 (whole blood), Vit B12, 25-OH Vit D, Fe, Ferritin, Folate Tobacco [x] Serum Nicotine / Cotinine [] Negative [] Positive PLEASE ADD SERUM NICOTINE/COTININE WITH INITIAL LABS ON ALL LRYGB PROCEDURES EGD [x] Dx: [] GERD [x] Dyspepsia [] Other Pathology [x] H. pylori [] Negative [] Positive UGI [] [] not ordered US Abdomen [x] [] not ordered BENTLEY eval [] [] On CPAP / Obtain settings Hematology [] [] Hypercoagulation panel Toxicology [] [] Urine drug screen [] EtOH screen Addtional [x] [x] Hgb A1c INITIAL CONSULTATIONS CLEARANCE / MANAGEMENT Psychology [x] Dietitian [x] Cardiology [x] Pulmonary [x] Others [] []Heme/Onc []Psychiatry []Pain mgmt PSD [x] Physician supervised diet: []None [x]3 mos []6 mos Preop diet [x] Preop low calorie diet: []None []1 wk [x]2 wks FINAL PRE-OP TESTING RESULTS Labwork [x] [x]Pre-op CBC [x]BMP []Serum Nicotine / Cotinine EKG [x] CXR [x] POST-OP MEDICATIONS Ulcer Ppx [x] Omeprazole 20 mg PO [x]QD []BID Gallstone Ppx [x] Ursodiol 300 mg [x]BID DVT Ppx [x] DVT prophylaxis per final preop visit estimated risk Estimated calculated risk: % Schedule final pre-operative office visit with surgeon, pre-operative education class, and pre-operative exercise class prior to date of surgery ATTESTATION I reviewed with the patient the details of the proposed operation. The risks benefits and options were discussed. Risks included but were not limited to bleeding, infection, damage to other surrounding organs, cardio-pulmonary complications related to anesthesia, conversion from laparoscopic to and open procedure, the need for reoperative or endoscopic therapy, the potential for prolonged mechanical ventilation, and . All questions were fully answered to the patient's satisfaction and they wish to proceed with surgical intervention. Greater than 51% of the 45 minute visit was spent as face to face encounter, counseling the patient and discussing the risks,benefits and options of surgery as well as the perioperative care plan. The patient was seen and examined independently and relevant data including a full chart rreview was performed by myself. Initial New [facility] surgical patient Navigation & Financial Counseling Discussion Patient Communication: In office SURGEON: [] JZ [] AD [] MP [x] TB [] LM PROCEDURE: [] LRYGB [] LSG [] SAYRA-S [] SAYRA [] UNDECIDED [] REV: SPECIFY: Confirmed pt wants to continue with surgical program/plan [] YES [] NO (complete program withdrawal note/process) CO-MORBIDS: [] NONE [] DM []HTN [] BENTLEY []GERD [] OTH: PRIVATE PAY: [] NO []YES DATE OF INITIAL BENEFITS VERIFICATION: TRANSFER FU: [] YES [] NO PRIMARY INSURANCE: Payor: [employer] MEDICARE / Plan: [employer] MEDICARE ADVANTAGE [id number] / Product Type: Medicare HMO / BENEFIT ON PLAN: [] NO [] YES BENEFIT MAX: [] NO [] YES -- BENEFIT MAX: $ EMPLOYER: DIET AND EXERCISE (DE) REQUIREMENT PRIMARY [] NONE [x]3M [] 6M []9M [] Medicare 4 Months [] SPR (3M) []OTHER: SECONDARY INSURANCE: BENEFIT ON PLAN: [] NO [] YES BENEFIT MAX: [] NO [] YES -- BENEFIT MAX: $ AUTH REQUIRED FROM SECONDARY [] NO [] YES DIET AND EXERCISE REQUIREMENT SECONDARY [] NONE []3M [] 6M [] Medicare 4 months [] SPR (3M) []OTHER: ___ [x] Discussed with patient: Financial cost overview (document signed and pt given copy at new pt consult visit with surgeon), Initial appointments: Bariatric Nutrition Assessment (BNA) & Diet and Exercise (DE) Patient to look for yellow envelope in mail. This yellow envelope will contain orders for labs, testing and required clearances. Pt encouraged to complete early in program to prevent delays. Encourage blood work to be draw by 1st DE appointment. [x] Reviewed OOP cost, including: [] Optifast cost of approximately $130-140/week x weeks immediately prior to surgery - used to induce rapid weight loss which results in decrease in size of liver and therefore facilitates laparoscopically surgery approach. [x] Overview of inpatient admission benefits - estimated inpatient co-pays, deductibles and/or co-insurance - Estimated OOP costs form reviewed with patient, and copy given to patient at new pt visit. [x] Reviewed next steps with patient: 1) Scheduled at new pt surgeon visit: Licensing Worker (RD) for a Nutrition Assessment (BNA) and Pre-operative Diet and Exercise (DE) appointment #1. [x] Patient reminded to arrive 15 minutes early for check in. Late arrivals may need to be rescheduled. 2) Schedule: Diet and Exercise Apt #2 only scheduled after initial BNA and DE completed, 3) Behavioral Health apt scheduled after DE started. Reviewed rational and goal of Behavioral Health appointments. 4) [x] Reinforced need to cancel any WMI appointments 48 hours in advance. Cautioned NS/Same day cancellations may result in delay in program or program completion hold. Noted: DE series needs to be a monthly series or insurance company may require repeat of the entire series. 5) [x] Smoker/tobacco products including vaping: reviewed need for cessation before surgery clearance and life long abstinence after surgery for best outcomes. Patient navigation to surgery: [x] Explained to patient that average time from initial consult to date of surgery can be 6-8 months. - Process can take longer if there are cancelled appointments, delays in testing and/or additional clearances that needs to be completed. - Reviewed importance of patient active engagement in making and keeping appointments to keep the process moving. - Reinforced need to cancel appointments at least 48 hours in advance. Reviewed that instances of No Shows and Same Day Appointment Cancellations may result in program/surgery delay or hold. [x] Patient advised of importance of having voicemail and MyChart for office communications and lab/testing results before and after surgery. documented in this encounter [facility] 06-23-2023 Note Discharged to home . Accompanied by Linda marquez . AVS and education reviewed with patient and Linda, both verbalized understanding. Mode of transportation private vehicle Belongings sent. [facility] 06-23-2023 Note Addended by: BERNADINE JACKSON on: 06/23/2023 10:09 AM Modules accepted: Orders [facility] 06-23-2023 Note Patient: Shawnee das Procedure Summary Date: 06/23/23 Room / Location: [place] [address] / [facility] OR Anesthesia Start: 946 Anesthesia Stop: 957 Procedure: EGD WITH BIOPSY Diagnosis: Dyspepsia (Dyspepsia [R10.13]) Surgeons: Ole Faulkner MD Responsible Provider: No Anesthesiologist - zeinab/MD [place] Anesthesia Type: general, TIVA ASA Status: 3 Anesthesia Type: general, TIVA Vitals Value Taken Time BP 126/79 06/23/23 1001 Temp 36.8 ?C (98.2 ?F) 06/23/23 0959 Pulse 93 06/23/23 1004 Resp 16 06/23/23 0959 SpO2 95 % 06/23/23 1004 Vitals shown include unfiled device data. Anesthesia Post Evaluation Patient location during evaluation: PACU Patient participation: complete - patient participated Level of consciousness: awake and alert Pain management: satisfactory to patient Airway patency: patent Dental Injury: no Cardiovascular status: acceptable, blood pressure returned to baseline and hemodynamically stable Respiratory status: acceptable and spontaneous ventilation Hydration status: euvolemic Nausea/Vomiting: controlled No notable events documented. Patient can be discharged once all PACU criteria has been met. [facility] 06-23-2023 Note Patient: Shawnee das Procedure Summary Date: 06/23/23 Room / Location: [place] [address] / [facility] Anesthesia Start: 946 Anesthesia Stop: 957 Procedure: EGD WITH BIOPSY Diagnosis: Dyspepsia (Dyspepsia [R10.13]) Surgeons: Ole Faulkner MD Responsible Provider: Jannet Anesthesiologist - Salena/MD [place] Anesthesia Type: general, TIVA ASA Status: 3 Anesthesia Type: general, TIVA Vitals Value Taken Time BP 126/79 06/23/23 1001 Temp 36.8 ?C (98.2 ?F) 06/23/23 0959 Pulse 91 06/23/23 1003 Resp 16 06/23/23 0959 SpO2 95 % 06/23/23 1003 Vitals shown include unfiled device data. Anesthesia Post Evaluation Patient location during evaluation: PACU Patient participation: complete - patient participated Level of consciousness: awake and alert Pain management: satisfactory to patient Multimodal analgesia pain management approach Airway patency: patent Two or more strategies used to mitigate risk of obstructive sleep apnea Cardiovascular status: acceptable and hemodynamically stable Respiratory status: acceptable Hydration status: acceptable No notable events documented. MIPS #[id number] PONV Patient did not receive an inhalational anesthetic ([id number]) MIPS # 424 Perioperative Temperature Management Anesthesia time was less than 60 minutes (4256F) MIPS #477 Multimodal Pain Management Not emergent case Patient was not administered multimodal pain management (G2149) Patient reports no pain in PACU (G2149) MIPS #404 Anesthesiology Smoking Abstinence The patient is not a current smoker (e.g. cigarette, cigar, pipe, e-cigarette/vaping/marijuana) If no stop here (G9644) I completed my handoff to the receiving clinician during which we: 1. Identified the patient 2. Identified the responsible provider 3. Reviewed the pertinent medical history 4. Discussed the surgical course 5. Reviewed intra-op anesthesia management and issues during anesthesia 6. Set expectations for post-procedure period 7. Allowed opportunity for questions and acknowledgement of understanding. [facility] 06-23-2023 Note Formatting of this n ote might be different from the original. Discharged to home . Accompanied by Linda marquez . AVS and education reviewed with patient and Linda, both verbalized understanding. Mode of transportation private vehicle Belongings sent. [facility] 06-23-2023 Miscellaneous Notes Discharged to home . Accompanied by Linda marquez . AVS and education reviewed with patient and Linda, both verbalized understanding. Mode of transportation private vehicle Belongings sent. POC blood glucose 114 in pacu Images from the original note were not included. . Shawnee Mohr 1955 ESOPHAGOGASTRODUODENOSCOPY (EGD) NOTE Date of Procedure: 06/23/2023 Indication: History of GERD and Ghosh's esophagitis Referring provider: Dr. Epperson Surgeon: Ole Faulkner MD, FACS Procedure Detail: A physical exam was performed. Informed consent was obtained from the patient after explaining all the risks (perforation, bleeding, missed lesions, trauma to adjacent organs, infection and adverse effects to the medicine) , benefits and alternatives to the procedure which the patient appeared to understand and so stated. A timeout procedure was performed. The patient was connected to the monitoring devices and placed in the left lateral position. Continuous oxygen was provided with a nasal cannula and IV medicine administered through a indwelling cannula. After adequate sedation was achieved, the esophagus was intubated and the scope advanced under direct visualization to the extent of the second portion of the duodenum. Detailed exam of the oropharynx was not performed. If any concerns; ENT evaluation is recommended. The patient was subsequently transferred to the recovery area in satisfactory condition. Estimated blood loss was <5cc. Specimens per endoscopic findings below. Endoscopic Findings: Esophagus: Grossly normal to GE junction Esophagogastric junction: There was mild esophagitis, biopsy not taken due to significant food burden in stomach as below Stomach: Mild gastritis noted in the antrum, biopsies taken for H. Pylori with a cold forceps. There was a large amount of food in the stomach. Duodenum: Grossly normal, without ulcers or other lesions Note, the procedure was significantly obscured by food. Due to aspiration risk, the esophagus was not biopsied, this was due to minimal inflammation as well as the large food burden and aspiration risk for further time under anesthesia. Recommendations: Follow up biopsy results Continue with recommended work-up as noted in office visit note. 0942 blood sugar 116 documented in this encounter [facility] 06-23-2023 Note Formatting of this n ote might be different from the original. POC blood glucose 114 in pacu [facility] 06-23-2023 Note Addended by: BERNADINE JACKSON on: 06/23/2023 10:09 AM Modules accepted: Orders [facility] 06-23-2023 Note Addended by: BERNADINE JACKSON on: 06/23/2023 10:09 AM Modules accepted: Orders [facility] 06-23-2023 Note Addended by: BERNADINE JACKSON on: 06/23/2023 10:09 AM Modules accepted: Orders [facility] 06-23-2023 Note Addended by: BERNADINE JACKSON on: 06/23/2023 10:09 AM Modules accepted: Orders [facility] 06-23-2023 Note Addended by: BERNADINE JACKSON on: 06/23/2023 10:09 AM Modules accepted: Orders T [facility] 06-23-2023 Note Addended by: BERNADINE JACKSON on: 06/23/2023 10:09 AM Modules accepted: Orders [facility] 06-23-2023 Note Addended by: BERNADINE JACKSON on: 06/23/2023 10:09 AM Modules accepted: Orders T [facility] 06-23-2023 Note Addended by: BERNADINE JACKSON on: 06/23/2023 10:09 AM Modules accepted: Orders T [facility] 06-23-2023 Note Addended by: BERNADINE JACKSON on: 06/23/2023 10:09 AM Modules accepted: Orders T [facility] 06-23-2023 Note Addended by: BERNADINE JACKSON on: 06/23/2023 10:09 AM Modules accepted: Orders T [facility] 06-23-2023 Note Addended by: BERNADINE JACKSON on: 06/23/2023 10:09 AM Modules accepted: Orders T [facility] 06-23-2023 Note Addended by: BERNADINE JACKSON on: 06/23/2023 10:09 AM Modules accepted: Orders [facility] 06-23-2023 Hospital Discharge instructions Clari Mei RN - 06/23/2023 10:07 AM EDT Anesthesia and Activity: DO NOT drive, operate machinery, drink any alcohol or take sleeping pills today Avoid making critical decisions, signing legal documents, or performing any activity that requires alertness for the rest of the day. You may experience a tickling, dry throat or mouth. You may be hoarse. Use lozenges and warm saltwater gargles. Notify your physician if these symptoms persist longer than 48 hours. Rest the remainder of the day. You may resume normal activity tomorrow. DIET: You may resume a normal diet unless notified or recommended by your physician. You may be eager to eat a large meal after fasting, but it is a good idea to start with light meals and ease into solid foods the first day. If your stomach is upset, try clear liquids and bland, low fat foods like toast or rice. Drink plenty of fluids for the first 24 hours (unless your physician states otherwise) MEDICATION: Resume your normal home medications unless notified or recommended by your physician. Ask your physician when you can resume any blood thinners, such as Coumadin, Eliquis, Plavix, Aspirin or non-steroidal anti-inflammatory medications, such as Advil/Motrin (ibuprofen), Aleve (naproxen) Follow-up Appointment: If biopsies were taken or polyps were removed the office will call you with pathology reports in 7-10 days. Not all areas of EGD were able to be biopsied due to presence of food in stomach If you do not hear from them during that time frame please call your physician. A follow-up appointment has been recommended pending a gastric emptying study as discussed with Dr. Faulkner When to call for help: Call your doctor immediately or seek medical care if you experience: Severe pain or vomiting Coughing up more than a teaspoon of blood A fever greater than 101 degrees Redness or swelling of arm from the IV site for more than 48 hours Sudden onset of chest pain or shortness of breath IF YOU ARE UNABLE TO REACH YOUR PHYSICIAN GO TO NEAREST EMERGENCY DEPARTMENT OR CALL 911 documented in this encounter [facility] 06-23-2023 Telephone encounter Note Endoscopic Findings: Esophagus: Grossly normal to GE junction Esophagogastric junction: There was mild esophagitis, biopsy not taken due to significant food burden in stomach as below Stomach: Mild gastritis noted in the antrum, biopsies taken for H. Pylori with a cold forceps. There was a large amount of food in the stomach. Duodenum: Grossly normal, without ulcers or other lesions Note, the procedure was significantly obscured by food. Due to aspiration risk, the esophagus was not biopsied, this was due to minimal inflammation as well as the large food burden and aspiration risk for further time under anesthesia. GES ordered per TB. [facility] 06-23-2023 Note Endoscopy History an d Physical HPI: Shawnee Mohr is a 68 y.o. female who presents with gerd and is undergoing preoperative workup for weight reduction surgery. BMI is There is no height or weight on file to calculate BMI. 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 Depression Diabetes (HCC) Difficulty sleeping Dizziness Fatigue Fatty liver GERD (gastroesophageal reflux disease) HTN (hypertension) Hx: UTI (urinary tract infection) Liver fibrosis Memory difficulties Morbid obesity, unspecified obesity type (HCC) Muscle weakness BENTLEY (obstructive sleep apnea) Snoring SOBOE (shortness of breath on exertion) PSHx: Past Surgical History: Procedure Laterality Date [place] [facility] [place] [place] TOTAL KNEE ARTHROPLASTY Right [place] [facility] TOTAL KNEE ARTHROPLASTY Left PFMHx: Family History Problem Relation Name Age of Onset Diabetes Mother Multiple sclerosis Mother Clotting disorder Father Arthritis Sister ALL: Allergies Allergen Reactions Biotin Anaphylaxis Statins Other Muscle pain / fatigue, dry mouth MEDS: @MEDCMED@ SOCIAL Hx: Social History Socioeconomic History Marital status: Spouse name: Not on file Number of children: Not on file Years of education: Not on file Highest education level: Not on file Occupational History Not on file Tobacco Use Smoking status: Never Smokeless tobacco: Never Substance and Sexual Activity Alcohol use: Not Currently Drug use: Not Currently Sexual activity: Not Currently Other Topics Concern Not on file Social History Narrative Not on file Social Determinants of Health Financial Resource Strain: Not on file Food Insecurity: Not on file Transportation Needs: Not on file Physical Activity: Not on file Stress: Not on file Social Connections: Not on file Intimate Partner Violence: Not on file Housing Stability: Not on file Review of Systems: I personally reviewed the patient intake form with the patient. The ROS is negative except for what is listed in HPI. Physical Examination: There were no vitals taken for this visit. She stands @FLOWAMB(11)@ tall with a weight of @FLOWAMB(14)@ , resulting in a BMI of There is no height or weight on file to calculate BMI.. General: The patient is awake, alert, and oriented, and is in no apparent distress. Normal affect. Head and Neck: Normocephalic and atraumatic. Supple, no thyromegaly. Cardiac: Regular rate and rhythm without evidence of murmur. No obvious carotid bruits. Respiratory: Clear to auscultation bilaterally. Good inspiratory effort. Abdomen: Soft, non tender, non distended Extremities: Ambulatory without assistance. Neurological: Intact sensation in 4 extremities, no focal deficits notes. Skin: No rashes or lesions noted. Warm and dry. Rectal: Not done. Hernia: no hernias found on exam Assessment and Plan Active Problems: There are no active Hospital Problems. Plan: 68 y.o. female who presents with gerd Morbid obesity with There is no height or weight on file to calculate BMI.. EGD with biopsy Patient counseled on risks, benefits, and alternatives of treatment plan at length. Patient states an understanding and willingness to proceed with plan. [facility] 06-23-2023 Note Formatting of this n ote might be different from the original. Images from the original note were not included. . Shawnee Ramirezthiago 1955 ESOPHAGOGASTRODUODENOSCOPY (EGD) NOTE Date of Procedure: 06/23/2023 Indication: History of GERD and Ghosh's esophagitis Referring provider: Dr. Epperson Surgeon: Ole Faulkner MD, FACS Procedure Detail: A physical exam was performed. Informed consent was obtained from the patient after explaining all the risks (perforation, bleeding, missed lesions, trauma to adjacent organs, infection and adverse effects to the medicine) , benefits and alternatives to the procedure which the patient appeared to understand and so stated. A timeout procedure was performed. The patient was connected to the monitoring devices and placed in the left lateral position. Continuous oxygen was provided with a nasal cannula and IV medicine administered through a indwelling cannula. After adequate sedation was achieved, the esophagus was intubated and the scope advanced under direct visualization to the extent of the second portion of the duodenum. Detailed exam of the oropharynx was not performed. If any concerns; ENT evaluation is recommended. The patient was subsequently transferred to the recovery area in satisfactory condition. Estimated blood loss was <5cc. Specimens per endoscopic findings below. Endoscopic Findings: Esophagus: Grossly normal to GE junction Esophagogastric junction: There was mild esophagitis, biopsy not taken due to significant food burden in stomach as below Stomach: Mild gastritis noted in the antrum, biopsies taken for H. Pylori with a cold forceps. There was a large amount of food in the stomach. Duodenum: Grossly normal, without ulcers or other lesions Note, the procedure was significantly obscured by food. Due to aspiration risk, the esophagus was not biopsied, this was due to minimal inflammation as well as the large food burden and aspiration risk for further time under anesthesia. Recommendations: Follow up biopsy results Continue with recommended work-up as noted in office visit note. [facility] 06-23-2023 History and physical note Images from the original note were not included. Endoscopy History and Physical HPI: Shawnee Mohr is a 68 y.o. female who presents with gerd and is undergoing preoperative workup for weight reduction surgery. BMI is There is no height or weight on file to calculate BMI. 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 Depression Diabetes (HCC) Difficulty sleeping Dizziness Fatigue Fatty liver GERD (gastroesophageal reflux disease) HTN (hypertension) Hx: UTI (urinary tract infection) Liver fibrosis Memory difficulties Morbid obesity, unspecified obesity type (HCC) Muscle weakness BENTLEY (obstructive sleep apnea) Snoring SOBOE (shortness of breath on exertion) PSHx: Past Surgical History: Procedure Laterality Date [facility]STECTOMY [place] [facility] [place] TOTAL KNEE ARTHROPLASTY Right [place] [facility] TOTAL KNEE ARTHROPLASTY Left PFMHx: Family History Problem Relation Name Age of Onset Diabetes Mother Multiple sclerosis Mother Clotting disorder Father Arthritis Sister ALL: Allergies Allergen Reactions Biotin Anaphylaxis Statins Other Muscle pain / fatigue, dry mouth MEDS: @MEDCMED@ SOCIAL Hx: Social History Socioeconomic History Marital status: Spouse name: Not on file Number of children: Not on file Years of education: Not on file Highest education level: Not on file Occupational History Not on file Tobacco Use Smoking status: Never Smokeless tobacco: Never Substance and Sexual Activity Alcohol use: Not Currently Drug use: Not Currently Sexual activity: Not Currently Other Topics Concern Not on file Social History Narrative Not on file Social Determinants of Health Financial Resource Strain: Not on file Food Insecurity: Not on file Transportation Needs: Not on file Physical Activity: Not on file Stress: Not on file Social Connections: Not on file Intimate Partner Violence: Not on file Housing Stability: Not on file Review of Systems: I personally reviewed the patient intake form with the patient. The ROS is negative except for what is listed in HPI. Physical Examination: There were no vitals taken for this visit. She stands @FLOWAMB(11)@ tall with a weight of @FLOWAMB(14)@ , resulting in a BMI of There is no height or weight on file to calculate BMI.. General: The patient is awake, alert, and oriented, and is in no apparent distress. Normal affect. Head and Neck: Normocephalic and atraumatic. Supple, no thyromegaly. Cardiac: Regular rate and rhythm without evidence of murmur. No obvious carotid bruits. Respiratory: Clear to auscultation bilaterally. Good inspiratory effort. Abdomen: Soft, non tender, non distended Extremities: Ambulatory without assistance. Neurological: Intact sensation in 4 extremities, no focal deficits notes. Skin: No rashes or lesions noted. Warm and dry. Rectal: Not done. Hernia: no hernias found on exam Assessment and Plan Active Problems: There are no active Hospital Problems. Plan: 68 y.o. female who presents with gerd Morbid obesity with There is no height or weight on file to calculate BMI.. EGD with biopsy Patient counseled on risks, benefits, and alternatives of treatment plan at length. Patient states an understanding and willingness to proceed with plan. [facility] Work Phone: 06-23-2023 History and physical note Images from the original note were not included. Endoscopy History and Physical HPI: Shawnee Mohr is a 68 y.o. female who presents with gerd and is undergoing preoperative workup for weight reduction surgery. BMI is There is no height or weight on file to calculate BMI. 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 Depression Diabetes (HCC) Difficulty sleeping Dizziness Fatigue Fatty liver GERD (gastroesophageal reflux disease) HTN (hypertension) Hx: UTI (urinary tract infection) Liver fibrosis Memory difficulties Morbid obesity, unspecified obesity type (HCC) Muscle weakness BENTLEY (obstructive sleep apnea) Snoring SOBOE (shortness of breath on exertion) PSHx: Past Surgical History: Procedure Laterality Date [place]STECTOMY [place] [facility] [place] [place] TOTAL KNEE ARTHROPLASTY Right [place] [facility] TOTAL KNEE ARTHROPLASTY Left PFMHx: Family History Problem Relation Name Age of Onset Diabetes Mother Multiple sclerosis Mother Clotting disorder Father Arthritis Sister ALL: Allergies Allergen Reactions Biotin Anaphylaxis Statins Other Muscle pain / fatigue, dry mouth MEDS: @MEDCMED@ SOCIAL Hx: Social History Socioeconomic History Marital status: Spouse name: Not on file Number of children: Not on file Years of education: Not on file Highest education level: Not on file Occupational History Not on file Tobacco Use Smoking status: Never Smokeless tobacco: Never Substance and Sexual Activity Alcohol use: Not Currently Drug use: Not Currently Sexual activity: Not Currently Other Topics Concern Not on file Social History Narrative Not on file Social Determinants of Health Financial Resource Strain: Not on file Food Insecurity: Not on file Transportation Needs: Not on file Physical Activity: Not on file Stress: Not on file Social Connections: Not on file Intimate Partner Violence: Not on file Housing Stability: Not on file Review of Systems: I personally reviewed the patient intake form with the patient. The ROS is negative except for what is listed in HPI. Physical Examination: There were no vitals taken for this visit. She stands @FLOWAMB(11)@ tall with a weight of @FLOWAMB(14)@ , resulting in a BMI of There is no height or weight on file to calculate BMI.. General: The patient is awake, alert, and oriented, and is in no apparent distress. Normal affect. Head and Neck: Normocephalic and atraumatic. Supple, no thyromegaly. Cardiac: Regular rate and rhythm without evidence of murmur. No obvious carotid bruits. Respiratory: Clear to auscultation bilaterally. Good inspiratory effort. Abdomen: Soft, non tender, non distended Extremities: Ambulatory without assistance. Neurological: Intact sensation in 4 extremities, no focal deficits notes. Skin: No rashes or lesions noted. Warm and dry. Rectal: Not done. Hernia: no hernias found on exam Assessment and Plan Active Problems: There are no active Hospital Problems. Plan: 68 y.o. female who presents with gerd Morbid obesity with There is no height or weight on file to calculate BMI.. EGD with biopsy Patient counseled on risks, benefits, and alternatives of treatment plan at length. Patient states an understanding and willingness to proceed with plan. documented in this encounter [facility] 06-23-2023 Note Formatting of this n ote might be different from the original. 0942 blood sugar 116 [facility] 06-22-2023 Note Patient: Shawnee das Procedure Information Date/Time: 06/23/23 1100 Procedure: EGD WITH BIOPSY Location: [facility] / [facility] Surgeons: Ole Faulkner MD Relevant Problems Anesthesia (+) BENTLEY (obstructive sleep apnea) Cardio (+) HTN (hypertension) GI (+) GERD (gastroesophageal reflux disease) Pulmonary (+) BENTLEY (obstructive sleep apnea) Past Medical History: Past Medical History: No date: Anxiety No date: Back pain 11/2022: Ghosh esophagus No date: Depression No date: Diabetes (HCC) No date: Difficulty sleeping No date: Dizziness No date: Fatigue No date: Fatty liver No date: GERD (gastroesophageal reflux disease) No date: HTN (hypertension) No date: Hx: UTI (urinary tract infection) No date: Liver fibrosis No date: Memory difficulties No date: Morbid obesity, unspecified obesity type (HCC) No date: Muscle weakness No date: BENTLEY (obstructive sleep apnea) No date: Snoring No date: SOBOE (shortness of breath on exertion) Past Surgical History: Past Surgical History: No date: CHOLECYSTECTOMY Comment: [facility] 2018: HYSTERECTOMY Comment: [place] No date: TOTAL KNEE ARTHROPLASTY; Right Comment: Christy Hernandez CAR[place] No date: TOTAL KNEE ARTHROPLASTY; Left Social History: TOBACCO: reports that she has never smoked. She has never used smokeless tobacco. ETOH: reports that she does not currently use alcohol. Social History Substance and Sexual Activity Drug Use Not Currently Family History: Family History Problem Relation Name Age of Onset ? Diabetes Mother ? Multiple sclerosis Mother ? Clotting disorder Father ? Arthritis Sister Screening: unknown Clinical information reviewed: Physical Exam Airway Mallampati: III TM distance: >3 FB Neck ROM: full Mouth Open: normalendotracheal tube not in place Cardiovascular Dental (+) Poor, Loose, chipped Comments: Very poor dentition. Informed of risk Pulmonary Abdominal (+) obese Anesthesia Plan patient is NPO appropriate Any family history or previous problems with anesthesia no ASA 3 general and TIVA Any family history or previous problems with anesthesia no The patient is not a current smoker. Anesthetic plan and risks discussed with patient. BENTLEY Screening Labs: No results found for: WBC , HGB , HCT , MCV , PLT No results found for: NA , K , CL , CO2 , BUN , CREATININE , GLUCOSE , CALCIUM , PROT , BILIRUBINFL , ALKPHOS , AST , ALT , EGFR , GLOB No echocardiogram results found for the past 14 days No results found for this or any previous visit. [facility] 05-12-2023 History of Present illness Narrative [facility] SURGICAL WEIGHT LOSS MANAGEMENT PROGRAM PHYSICIAN SUPERVISED DIET AND EXERCISE SURGICAL PREPARATORY REGIMEN PROGRESS NOTE INITIAL EVALUATION Patient: Shawnee Mohr Service Date: 05/12/2023 Date of : 1955 Navigation Plan: Patient History/Assessment Summary: The patient is a pleasant 68 y.o. year old female, who stands tall with a weight of pounds, resulting in a BMI of There is no height or weight on file to calculate BMI. kg/m2. They have been overweight for years, have tried and failed multiple previous diet attempts, and is now in the process of undergoing evaluation for surgical treatment of their severe obesity and DM, GERD, Fatty Liver Disease, HTN, and BENTLEY with or without CPAP. They are here today to initiate monthly physician supervised diet and exercise as part of their surgical preparatory regimen. The patient does not have any acute complaints. 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 Depression Diabetes (HCC) Difficulty sleeping Dizziness Fatigue Fatty liver GERD (gastroesophageal reflux disease) HTN (hypertension) Hx: UTI (urinary tract infection) Liver fibrosis Memory difficulties Morbid obesity, unspecified obesity type (HCC) Muscle weakness BENTLEY (obstructive sleep apnea) Snoring SOBOE (shortness of breath on exertion) Past Surgical History: Procedure Laterality Date CHOLE[place]STECTOMY [place] [facility]ST[facility] [place] TOTAL KNEE ARTHROPLASTY Right [place] [facility] TOTAL KNEE ARTHROPLASTY Left Family History Problem Relation Name Age of Onset Diabetes Mother Multiple sclerosis Mother Clotting disorder Father Arthritis Sister Social History Tobacco Use Smoking status: Never Smokeless tobacco: Never Substance Use Topics Alcohol use: Not Currently Current Meds Patient's Medications New Prescriptions No medications on file Previous Medications AMITRIPTYLINE (ELAVIL) 150 MG TABLET Take 150 mg by mouth Nightly. BUSPIRONE (BUSPAR) 10 MG TABLET Take 10 mg by mouth 3 times daily. CHOLECALCIFEROL (VITAMIN D-3) 1.25 MG (22327 UT) CAPSULE Take 50,000 Units by mouth 1 (one) time per week. CYANOCOBALAMIN (VITAMIN B-12 IJ) Inject as directed every 30 (thirty) days. DULOXETINE (CYMBALTA) [address] CAPSULE Take 120 mg by mouth daily. FOLIC ACID (FOLVITE) 1 MG TABLET Take 1,000 mcg by mouth daily. INSULIN LISPRO (HUMALOG) 100 UNIT/ML INJECTION 12 Units 3 times daily. Plus sliding scale JARDIANCE 10 MG Take 10 mg by mouth daily. LATANOPROST (XALATAN) 0.005 % OPHTHALMIC SOLUTION 1 drop before bedtime. LINZESS 145 MCG CAPSULE daily. LISINOPRIL 2.5 MG TABLET Take 2.5 mg by mouth daily. LORATADINE (CLARITIN) 10 MG TABLET Take 10 mg by mouth daily. METOCLOPRAMIDE (REGLAN) 5 MG TABLET 5 mg 3 times daily. MULTIPLE VITAMINS-MINERALS (PRESERVISION AREDS 2 PO) Take by mouth 2 times daily. PANTOPRAZOLE (PROTONIX) 40 MG EC TABLET Take 40 mg by mouth at noon and 40 mg in the evening. PREGABALIN (LYRICA) 50 MG CAPSULE Take 50 mg by mouth at noon and 50 mg in the evening. RESPIRATORY THERAPY SUPPLIES (CARETOUCH CPAP & BIPAP HOSE) MISC Nightly. RIMEGEPANT SULFATE 75 MG TABLET DISPERSIBLE Take 75 mg by mouth. As needed TRESIBA FLEXTOUCH 100 UNIT/ML INJECTION 40 Units Nightly. TRULICITY 4.5 MG/0.5ML SOLUTION PEN-INJECTOR 4.5 mg 1 (one) time per week. URSODIOL (ACTIGALL) 250 MG TABLET Take 250 mg by mouth 2 times daily. VITAMIN E 180 MG (400 UNIT) CAPSULE Take 2 capsules by mouth at noon and 2 capsules in the evening. Modified Medications No medications on file Discontinued Medications No medications on file This patient's excess weight is causing the following co-morbid conditions at this time:DM, GERD, Fatty Liver Disease, HTN, and BENTLEY with or without CPAP Initial Diet & Exercise/SPR Visit Weight Metrics: Date of Initial Diet & Exercise Visit: Initial Weight: Initial BMI: [place] Body Weight: Excess Body Weight: Physical Examination: Weight 229 lbs BP 164/89, HR 98 General: Alert and oriented x 4, obese, no distress. normocephalic and atraumatic Cardiac: Regular rate and rhythm without evidence of murmur Respiratory: Clear to auscultation bilaterally; No evidence of respiratory distress Musculoskeletal: No edema of extremities, wheelchair Neurological: Intact x 4 extremities, nonfocal neurologic exam, no focal deficits notes. Current Diet This patient s current diet is: inconsistent breakfast Reviewed PAST DIET HISTORY FORM and CURRENT DIET HISTORY FORM with patient (located in [employer]) I reviewed all of the patient's medications and diagnoses listed in Epic. Zero sugar beverages Stevia instead of sugar Comfort foods include: none Current Eating Behaviors This patients demonstrates the following behaviors as they relate to eating: no stress eating Eats approximately 3-4 times per day. Plan: --Obesity Class III, Elevated BMI Diet and exercise (DE) Following with bariatric surgery Advised patient that they must adhere to regular monthly visits to meet the requirements of the insurance company. Additionally, they must demonstrate meal plan adoption to show readiness for the changes that will be required following surgery. Diet recommendations provided to patient verbally and in the form of handouts; they understood and agreed with plan. -Jardiance and Trulicity --HTN: stable, continue meds per outpatient providers, Discussed blood pressure could decrease with weight loss, potentially resulting in dizziness/lightheadedness (which can result in fall/injury). Patient understood. Adequate hydration and follow up with PCP for abnormal blood pressures and possible medication adjustments discussed - patient understood and agreed. --Diabetes, continue meds per outpatient providers, discussed blood glucose could decrease with weight loss. Patient understood. They are aware of symptoms of hypoglycemia and treatment of hypoglycemia. Patient will follow up with their outpatient providers for diabetes management and possible adjustment of medications. --CKD: Ms. 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 --Sleep apnea: CPAP compliant --GERD: continue PPI --Fatty liver Plan of care discussed with patient, all questions answered, they agree with plan of care. Medical decision making: Patient's medical conditions place them at a moderate risk of complications, morbidity, and mortality. Patient to return for follow up in one month. No orders of the defined types were placed in this encounter. Brent Bang MD 05/12/2023 2:07 PM documented in this encounter [facility] 05-12-2023 History of Present illness Narrative [facility] SURGICAL WEIGHT LOSS MANAGEMENT PROGRAM PHYSICIAN SUPERVISED DIET AND EXERCISE SURGICAL PREPARATORY REGIMEN PROGRESS NOTE INITIAL EVALUATION Patient: Shawnee Mohr Service Date: 05/12/2023 Date of : 1955 Navigation Plan: Patient History/Assessment Summary: The patient is a pleasant 68 y.o. year old female, who stands tall with a weight of pounds, resulting in a BMI of There is no height or weight on file to calculate BMI. kg/m2. Addendum: BMI based on height 02/18/23 and weight 05/12/23 = 43.6 They have been overweight for years, have tried and failed multiple previous diet attempts, and is now in the process of undergoing evaluation for surgical treatment of their severe obesity and DM, GERD, Fatty Liver Disease, HTN, and BENTLEY with or without CPAP. They are here today to initiate monthly physician supervised diet and exercise as part of their surgical preparatory regimen. The patient does not have any acute complaints. 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 Depression Diabetes (HCC) Difficulty sleeping Dizziness Fatigue Fatty liver GERD (gastroesophageal reflux disease) HTN (hypertension) Hx: UTI (urinary tract infection) Liver fibrosis Memory difficulties Morbid obesity, unspecified obesity type (HCC) Muscle weakness BENTLEY (obstructive sleep apnea) Snoring SOBOE (shortness of breath on exertion) Past Surgical History: Procedure Laterality Date CHOLECYSTECTOMY [place] [facility] HYSTERECTOMY 2018 [place] TOTAL KNEE ARTHROPLASTY Right [place] [facility] TOTAL KNEE ARTHROPLASTY Left Family History Problem Relation Name Age of Onset Diabetes Mother Multiple sclerosis Mother Clotting disorder Father Arthritis Sister Social History Tobacco Use Smoking status: Never Smokeless tobacco: Never Substance Use Topics Alcohol use: Not Currently Current Meds Patient's Medications New Prescriptions No medications on file Previous Medications AMITRIPTYLINE (ELAVIL) 150 MG TABLET Take 150 mg by mouth Nightly. BUSPIRONE (BUSPAR) 10 MG TABLET Take 10 mg by mouth 3 times daily. CHOLECALCIFEROL (VITAMIN D-3) 1.25 MG (90392 UT) CAPSULE Take 50,000 Units by mouth 1 (one) time per week. CYANOCOBALAMIN (VITAMIN B-12 IJ) Inject as directed every 30 (thirty) days. DULOXETINE (CYMBALTA) [address] CAPSULE Take 120 mg by mouth daily. FOLIC ACID (FOLVITE) 1 MG TABLET Take 1,000 mcg by mouth daily. INSULIN LISPRO (HUMALOG) 100 UNIT/ML INJECTION 12 Units 3 times daily. Plus sliding scale JARDIANCE 10 MG Take 10 mg by mouth daily. LATANOPROST (XALATAN) 0.005 % OPHTHALMIC SOLUTION 1 drop before bedtime. LINZESS 145 MCG CAPSULE daily. LISINOPRIL 2.5 MG TABLET Take 2.5 mg by mouth daily. LORATADINE (CLARITIN) 10 MG TABLET Take 10 mg by mouth daily. METOCLOPRAMIDE (REGLAN) 5 MG TABLET 5 mg 3 times daily. MULTIPLE VITAMINS-MINERALS (PRESERVISION AREDS 2 PO) Take by mouth 2 times daily. PANTOPRAZOLE (PROTONIX) 40 MG EC TABLET Take 40 mg by mouth at noon and 40 mg in the evening. PREGABALIN (LYRICA) 50 MG CAPSULE Take 50 mg by mouth at noon and 50 mg in the evening. RESPIRATORY THERAPY SUPPLIES (CARETOUCH CPAP & BIPAP HOSE) MISC Nightly. RIMEGEPANT SULFATE 75 MG TABLET DISPERSIBLE Take 75 mg by mouth. As needed TRESIBA FLEXTOUCH 100 UNIT/ML INJECTION 40 Units Nightly. TRULICITY 4.5 MG/0.5ML SOLUTION PEN-INJECTOR 4.5 mg 1 (one) time per week. URSODIOL (ACTIGALL) 250 MG TABLET Take 250 mg by mouth 2 times daily. VITAMIN E 180 MG (400 UNIT) CAPSULE Take 2 capsules by mouth at noon and 2 capsules in the evening. Modified Medications No medications on file Discontinued Medications No medications on file This patient's excess weight is causing the following co-morbid conditions at this time:DM, GERD, Fatty Liver Disease, HTN, and BENTLEY with or without CPAP Initial Diet & Exercise/SPR Visit Weight Metrics: Date of Initial Diet & Exercise Visit: Initial Weight: Initial BMI: [place] Body Weight: Excess Body Weight: Physical Examination: Weight 229 lbs BP 164/89, HR 98 General: Alert and oriented x 4, obese, no distress. normocephalic and atraumatic Cardiac: Regular rate and rhythm without evidence of murmur Respiratory: Clear to auscultation bilaterally; No evidence of respiratory distress Musculoskeletal: No edema of extremities, wheelchair Neurological: Intact x 4 extremities, nonfocal neurologic exam, no focal deficits notes. Current Diet This patient s current diet is: inconsistent breakfast Reviewed PAST DIET HISTORY FORM and CURRENT DIET HISTORY FORM with patient (located in [facility]) I reviewed all of the patient's medications and diagnoses listed in Epic. Zero sugar beverages Stevia instead of sugar Comfort foods include: none Current Eating Behaviors This patients demonstrates the following behaviors as they relate to eating: no stress eating Eats approximately 3-4 times per day. Plan: --Obesity Class III, Elevated BMI Diet and exercise (DE) Following with bariatric surgery Advised patient that they must adhere to regular monthly visits to meet the requirements of the insurance company. Additionally, they must demonstrate meal plan adoption to show readiness for the changes that will be required following surgery. Diet recommendations provided to patient verbally and in the form of handouts; they understood and agreed with plan. -Jardiance and Trulicity --HTN: stable, continue meds per outpatient providers, Discussed blood pressure could decrease with weight loss, potentially resulting in dizziness/lightheadedness (which can result in fall/injury). Patient understood. Adequate hydration and follow up with PCP for abnormal blood pressures and possible medication adjustments discussed - patient understood and agreed. --Diabetes, continue meds per outpatient providers, discussed blood glucose could decrease with weight loss. Patient understood. They are aware of symptoms of hypoglycemia and treatment of hypoglycemia. Patient will follow up with their outpatient providers for diabetes management and possible adjustment of medications. --CKD: Ms. 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 --Sleep apnea: CPAP compliant --GERD: continue PPI --Fatty liver Plan of care discussed with patient, all questions answered, they agree with plan of care. Medical decision making: Patient's medical conditions place them at a moderate risk of complications, morbidity, and mortality. Patient to return for follow up in one month. No orders of the defined types were placed in this encounter. Brent Bang MD 05/12/2023 2:07 PM documented in this encounter [facility] 03-02-2023 Telephone encounter Note Orders mailed [facility] 03-02-2023 Miscellaneous Notes Orders mailed Addended by: BERNADINE ALVARADO on: 02/28/2023 08:37 AM Modules accepted: Orders Orders signed. Pt did have EGD 09/16. Will discuss need to repeat with TB. Addended by: ALLEGRA PALOMARES on: 02/26/2023 12:56 PM Modules accepted: Orders Orders pended, Pre-op checklist scanned, EGD order sent to ALS PLAN Encounter Diagnoses Name Primary? BENTLEY (obstructive sleep apnea) Yes Primary hypertension Gastroesophageal reflux disease without esophagitis Type 2 diabetes mellitus without complication, unspecified whether predatory animal exterminator insulin use (HCC) I have recommended proceeding with the evaluation and work-up for the primary procedure as outlined below: Requested records from GI Specialist Dr. Latesha Faulkner PATIENT SUMMARY Shawnee Mohr 68 y.o. female with Body mass index is 43.36 kg/m . Laparoscopic Mat-en-Y Gastric Bypass and Laparoscopic Liver Biopsy DM[x] HTN[x] BENTLEY[x] GERD[x] HL[x] OA[] Date of Surgery: TBD ALEXIS EPPERSON INITIAL TESTING RESULTS Labwork [x] CMP, TSH, Fasting Lipid Profile, Mg, Zinc, Vit B1 (whole blood), Vit B12, 25-OH Vit D, Fe, Ferritin, Folate Tobacco [x] Serum Nicotine / Cotinine [] Negative [] Positive PLEASE ADD SERUM NICOTINE/COTININE WITH INITIAL LABS ON ALL LRYGB PROCEDURES EGD [x] Dx: [] GERD [x] Dyspepsia [] Other Pathology [x] H. pylori [] Negative [] Positive UGI [] [] not ordered US Abdomen [x] [] not ordered BENTLEY eval [] [] On CPAP / Obtain settings Hematology [] [] Hypercoagulation panel Toxicology [] [] Urine drug screen [] EtOH screen Addtional [x] [x] Hgb A1c INITIAL CONSULTATIONS CLEARANCE / MANAGEMENT Psychology [x] Dietitian [x] Cardiology [x] Pulmonary [x] Others [] []Heme/Onc []Psychiatry []Pain mgmt PSD [x] Physician supervised diet: []None [x]3 mos []6 mos Preop diet [x] Preop low calorie diet: []None []1 wk [x]2 wks FINAL PRE-OP TESTING RESULTS Labwork [x] [x]Pre-op CBC [x]BMP []Serum Nicotine / Cotinine EKG [x] CXR [x] POST-OP MEDICATIONS Ulcer Ppx [x] Omeprazole 20 mg PO [x]QD []BID Gallstone Ppx [x] Ursodiol 300 mg [x]BID DVT Ppx [x] DVT prophylaxis per final preop visit estimated risk Estimated calculated risk: % Schedule final pre-operative office visit with surgeon, pre-operative education class, and pre-operative exercise class prior to date of surgery ATTESTATION I reviewed with the patient the details of the proposed operation. The risks benefits and options were discussed. Risks included but were not limited to bleeding, infection, damage to other surrounding organs, cardio-pulmonary complications related to anesthesia, conversion from laparoscopic to and open procedure, the need for reoperative or endoscopic therapy, the potential for prolonged mechanical ventilation, and . All questions were fully answered to the patient's satisfaction and they wish to proceed with surgical intervention. Greater than 51% of the 45 minute visit was spent as face to face encounter, counseling the patient and discussing the risks,benefits and options of surgery as well as the perioperative care plan. The patient was seen and examined independently and relevant data including a full chart rreview was performed by myself. Initial New [facility] surgical patient Navigation & Financial Counseling Discussion Patient Communication: In office SURGEON: [] JZ [] AD [] MP [x] TB [] LM PROCEDURE: [] LRYGB [] LSG [] SAYRA-S [] SAYRA [] UNDECIDED [] REV: SPECIFY: Confirmed pt wants to continue with surgical program/plan [] YES [] NO (complete program withdrawal note/process) CO-MORBIDS: [] NONE [] DM []HTN [] BENTLEY []GERD [] OTH: PRIVATE PAY: [] NO []YES DATE OF INITIAL BENEFITS VERIFICATION: TRANSFER FU: [] YES [] NO PRIMARY INSURANCE: Payor: [facility] MED[facility] / Plan: [facility] MEDICARE ADVANTAGE [id number] / Product Type: Medicare HMO / BENEFIT ON PLAN: [] NO [] YES BENEFIT MAX: [] NO [] YES -- BENEFIT MAX: $ EMPLOYER: DIET AND EXERCISE (DE) REQUIREMENT PRIMARY [] NONE [x]3M [] 6M []9M [] Medicare 4 Months [] SPR (3M) []OTHER: SECONDARY INSURANCE: BENEFIT ON PLAN: [] NO [] YES BENEFIT MAX: [] NO [] YES -- BENEFIT MAX: $ AUTH REQUIRED FROM SECONDARY [] NO [] YES DIET AND EXERCISE REQUIREMENT SECONDARY [] NONE []3M [] 6M [] Medicare 4 months [] SPR (3M) []OTHER: ___ [x] Discussed with patient: Financial cost overview (document signed and pt given copy at new pt consult visit with surgeon), Initial appointments: Bariatric Nutrition Assessment (BNA) & Diet and Exercise (DE) Patient to look for yellow envelope in mail. This yellow envelope will contain orders for labs, testing and required clearances. Pt encouraged to complete early in program to prevent delays. Encourage blood work to be draw by 1st DE appointment. [x] Reviewed OOP cost, including: [] Optifast cost of approximately $130-140/week x weeks immediately prior to surgery - used to induce rapid weight loss which results in decrease in size of liver and therefore facilitates laparoscopically surgery approach. [x] Overview of inpatient admission benefits - estimated inpatient co-pays, deductibles and/or co-insurance - Estimated OOP costs form reviewed with patient, and copy given to patient at new pt visit. [x] Reviewed next steps with patient: 1) Scheduled at new pt surgeon visit: Licensing Worker (RD) for a Nutrition Assessment (BNA) and Pre-operative Diet and Exercise (DE) appointment #1. [x] Patient reminded to arrive 15 minutes early for check in. Late arrivals may need to be rescheduled. 2) Schedule: Diet and Exercise Apt #2 only scheduled after initial BNA and DE completed, 3) Behavioral Health apt scheduled after DE started. Reviewed rational and goal of Behavioral Health appointments. 4) [x] Reinforced need to cancel any WMI appointments 48 hours in advance. Cautioned NS/Same day cancellations may result in delay in program or program completion hold. Noted: DE series needs to be a monthly series or insurance company may require repeat of the entire series. 5) [x] Smoker/tobacco products including vaping: reviewed need for cessation before surgery clearance and life long abstinence after surgery for best outcomes. Patient navigation to surgery: [x] Explained to patient that average time from initial consult to date of surgery can be 6-8 months. - Process can take longer if there are cancelled appointments, delays in testing and/or additional clearances that needs to be completed. - Reviewed importance of patient active engagement in making and keeping appointments to keep the process moving. - Reinforced need to cancel appointments at least 48 hours in advance. Reviewed that instances of No Shows and Same Day Appointment Cancellations may result in program/surgery delay or hold. [x] Patient advised of importance of having voicemail and MyChart for office communications and lab/testing results before and after surgery. documented in this encounter [facility] 02-28-2023 Note Addended by: BERNADINE JACKSON on: 02/28/2023 08:37 AM Modules accepted: Orders [facility] 02-28-2023 Note Addended by: BERNADINE JACKSON on: 02/28/2023 08:37 AM Modules accepted: Orders [facility] 02-28-2023 Note Addended by: BERNADINE JACKSON on: 02/28/2023 08:37 AM Modules accepted: Orders [facility] 02-28-2023 Note Addended by: BERNADINE JACKSON on: 02/28/2023 08:37 AM Modules accepted: Orders [facility] 02-28-2023 Note Addended by: BERNADINE JACKSON on: 02/28/2023 08:37 AM Modules accepted: Orders [facility] 02-28-2023 Note Addended by: BERNADINE JACKSON on: 02/28/2023 08:37 AM Modules accepted: Orders [facility] 02-28-2023 Note Addended by: BERNADINE JACKSON on: 02/28/2023 08:37 AM Modules accepted: Orders [facility] 02-28-2023 Note Addended by: BERNADINE JACKSON on: 02/28/2023 08:37 AM Modules accepted: Orders [facility] 02-28-2023 Note Addended by: BERNADINE JACKSON on: 02/28/2023 08:37 AM Modules accepted: Orders [facility] 02-28-2023 Note Addended by: BERNADINE JACKSON on: 02/28/2023 08:37 AM Modules accepted: Orders [facility] 02-28-2023 Note Addended by: BERNADINE JCAKSON on: 02/28/2023 08:37 AM Modules accepted: Orders T [facility] 02-28-2023 Note Addended by: BERNADINE JACKSON on: 02/28/2023 08:37 AM Modules accepted: Orders T [facility] 02-28-2023 Note Addended by: BERNADINE JACKSON on: 02/28/2023 08:37 AM Modules accepted: Orders T [facility] 02-28-2023 Note Addended by: BERNADINE JACKSON on: 02/28/2023 08:37 AM Modules accepted: Orders [facility] 02-28-2023 Miscellaneous Notes Addended by: BERNADINE ALVARADO on: 02/28/2023 08:37 AM Modules accepted: Orders Orders signed. Pt did have EGD 09/16. Will discuss need to repeat with TB. Addended by: ALLEGRA PALOMARES on: 02/26/2023 12:56 PM Modules accepted: Orders Orders pended, Pre-op checklist scanned, EGD order sent to ALS PLAN Encounter Diagnoses Name Primary? BENTLEY (obstructive sleep apnea) Yes Primary hypertension Gastroesophageal reflux disease without esophagitis Type 2 diabetes mellitus without complication, unspecified whether mcfp insulin use (HCC) I have recommended proceeding with the evaluation and work-up for the primary procedure as outlined below: Requested records from GI Specialist Dr. Latesha Faulkner PATIENT SUMMARY Shawnee Mohr 68 y.o. female with Body mass index is 43.36 kg/m . Laparoscopic Mat-en-Y Gastric Bypass and Laparoscopic Liver Biopsy DM[x] HTN[x] BENTLEY[x] GERD[x] HL[x] OA[] Date of Surgery: TBD ALEXIS EPPERSON INITIAL TESTING RESULTS Labwork [x] CMP, TSH, Fasting Lipid Profile, Mg, Zinc, Vit B1 (whole blood), Vit B12, 25-OH Vit D, Fe, Ferritin, Folate Tobacco [x] Serum Nicotine / Cotinine [] Negative [] Positive PLEASE ADD SERUM NICOTINE/COTININE WITH INITIAL LABS ON ALL LRYGB PROCEDURES EGD [x] Dx: [] GERD [x] Dyspepsia [] Other Pathology [x] H. pylori [] Negative [] Positive UGI [] [] not ordered US Abdomen [x] [] not ordered BENTLEY eval [] [] On CPAP / Obtain settings Hematology [] [] Hypercoagulation panel Toxicology [] [] Urine drug screen [] EtOH screen Addtional [x] [x] Hgb A1c INITIAL CONSULTATIONS CLEARANCE / MANAGEMENT Psychology [x] Dietitian [x] Cardiology [x] Pulmonary [x] Others [] []Heme/Onc []Psychiatry []Pain mgmt PSD [x] Physician supervised diet: []None [x]3 mos []6 mos Preop diet [x] Preop low calorie diet: []None []1 wk [x]2 wks FINAL PRE-OP TESTING RESULTS Labwork [x] [x]Pre-op CBC [x]BMP []Serum Nicotine / Cotinine EKG [x] CXR [x] POST-OP MEDICATIONS Ulcer Ppx [x] Omeprazole 20 mg PO [x]QD []BID Gallstone Ppx [x] Ursodiol 300 mg [x]BID DVT Ppx [x] DVT prophylaxis per final preop visit estimated risk Estimated calculated risk: % Schedule final pre-operative office visit with surgeon, pre-operative education class, and pre-operative exercise class prior to date of surgery ATTESTATION I reviewed with the patient the details of the proposed operation. The risks benefits and options were discussed. Risks included but were not limited to bleeding, infection, damage to other surrounding organs, cardio-pulmonary complications related to anesthesia, conversion from laparoscopic to and open procedure, the need for reoperative or endoscopic therapy, the potential for prolonged mechanical ventilation, and . All questions were fully answered to the patient's satisfaction and they wish to proceed with surgical intervention. Greater than 51% of the 45 minute visit was spent as face to face encounter, counseling the patient and discussing the risks,benefits and options of surgery as well as the perioperative care plan. The patient was seen and examined independently and relevant data including a full chart rreview was performed by myself. Initial New [facility] surgical patient Navigation & Financial Counseling Discussion Patient Communication: In office SURGEON: [] KANNAN [] IMER [] MP [x] TB [] LM PROCEDURE: [] LRYGB [] LSG [] SAYRA-S [] SAYRA [] UNDECIDED [] REV: SPECIFY: Confirmed pt wants to continue with surgical program/plan [] YES [] NO (complete program withdrawal note/process) CO-MORBIDS: [] NONE [] DM []HTN [] BENTLEY []GERD [] OTH: PRIVATE PAY: [] NO []YES DATE OF INITIAL BENEFITS VERIFICATION: TRANSFER FU: [] YES [] NO PRIMARY INSURANCE: Payor: [employer] MEDICARE / Plan: [facility] MEDICARE ADVANTAGE [id number] / Product Type: Medicare HMO / BENEFIT ON PLAN: [] NO [] YES BENEFIT MAX: [] NO [] YES -- BENEFIT MAX: $ EMPLOYER: DIET AND EXERCISE (DE) REQUIREMENT PRIMARY [] NONE [x]3M [] 6M []9M [] Medicare 4 Months [] SPR (3M) []OTHER: SECONDARY INSURANCE: BENEFIT ON PLAN: [] NO [] YES BENEFIT MAX: [] NO [] YES -- BENEFIT MAX: $ AUTH REQUIRED FROM SECONDARY [] NO [] YES DIET AND EXERCISE REQUIREMENT SECONDARY [] NONE []3M [] 6M [] Medicare 4 months [] SPR (3M) []OTHER: ___ [x] Discussed with patient: Financial cost overview (document signed and pt given copy at new pt consult visit with surgeon), Initial appointments: Bariatric Nutrition Assessment (BNA) & Diet and Exercise (DE) Patient to look for yellow envelope in mail. This yellow envelope will contain orders for labs, testing and required clearances. Pt encouraged to complete early in program to prevent delays. Encourage blood work to be draw by 1st DE appointment. [x] Reviewed OOP cost, including: [] Optifast cost of approximately $130-140/week x weeks immediately prior to surgery - used to induce rapid weight loss which results in decrease in size of liver and therefore facilitates laparoscopically surgery approach. [x] Overview of inpatient admission benefits - estimated inpatient co-pays, deductibles and/or co-insurance - Estimated OOP costs form reviewed with patient, and copy given to patient at new pt visit. [x] Reviewed next steps with patient: 1) Scheduled at new pt surgeon visit: Licensing Worker (RD) for a Nutrition Assessment (BNA) and Pre-operative Diet and Exercise (DE) appointment #1. [x] Patient reminded to arrive 15 minutes early for check in. Late arrivals may need to be rescheduled. 2) Schedule: Diet and Exercise Apt #2 only scheduled after initial BNA and DE completed, 3) Behavioral Health apt scheduled after DE started. Reviewed rational and goal of Behavioral Health appointments. 4) [x] Reinforced need to cancel any WMI appointments 48 hours in advance. Cautioned NS/Same day cancellations may result in delay in program or program completion hold. Noted: DE series needs to be a monthly series or insurance company may require repeat of the entire series. 5) [x] Smoker/tobacco products including vaping: reviewed need for cessation before surgery clearance and life long abstinence after surgery for best outcomes. Patient navigation to surgery: [x] Explained to patient that average time from initial consult to date of surgery can be 6-8 months. - Process can take longer if there are cancelled appointments, delays in testing and/or additional clearances that needs to be completed. - Reviewed importance of patient active engagement in making and keeping appointments to keep the process moving. - Reinforced need to cancel appointments at least 48 hours in advance. Reviewed that instances of No Shows and Same Day Appointment Cancellations may result in program/surgery delay or hold. [x] Patient advised of importance of having voicemail and MyChart for office communications and lab/testing results before and after surgery. documented in this encounter [facility] 02-28-2023 Telephone encounter Note Orders signed. Pt did have EGD 09/16. Will discuss need to repeat with TB. [facility] 02-26-2023 Note Addended by: ALLEGRA PALOMARES on: 02/26/2023 12:56 PM Modules accepted: Orders [facility] 02-26-2023 Note Addended by: ALLEGRA PALOMARES on: 02/26/2023 12:56 PM Modules accepted: Orders [facility] 02-26-2023 Note Addended by: ALLEGRA PALOMARES on: 02/26/2023 12:56 PM Modules accepted: Orders [facility] 02-26-2023 Note Addended by: ALLEGRA PALOMARES on: 02/26/2023 12:56 PM Modules accepted: Orders [facility] 02-26-2023 Note Addended by: ALLEGRA PALOMARES on: 02/26/2023 12:56 PM Modules accepted: Orders [facility] 02-26-2023 Note Addended by: ALLEGRA PALOMARES on: 02/26/2023 12:56 PM Modules accepted: Orders [facility] 02-26-2023 Note Addended by: ALLEGRA PALOMARES on: 02/26/2023 12:56 PM Modules accepted: Orders [facility] 02-26-2023 Note Addended by: ALLEGRA PALOMARES on: 02/26/2023 12:56 PM Modules accepted: Orders [facility] 02-26-2023 Note Addended by: ALLEGRA PALOMARES on: 02/26/2023 12:56 PM Modules accepted: Orders [facility] 02-26-2023 Note Addended by: ALLEGRA PALOMARES on: 02/26/2023 12:56 PM Modules accepted: Orders [facility] 02-26-2023 Note Addended by: ALLEGRA PALOMARES on: 02/26/2023 12:56 PM Modules accepted: Orders [facility] 02-26-2023 Note Addended by: ALLEGRA PALOMARES on: 02/26/2023 12:56 PM Modules accepted: Orders [facility] 02-26-2023 Note Addended by: ALLEGRA PALOMARES on: 02/26/2023 12:56 PM Modules accepted: Orders [facility] 02-26-2023 Note Addended by: ALLEGRA PALOMARES on: 02/26/2023 12:56 PM Modules accepted: Orders [facility] 02-26-2023 Note Addended by: ALLEGRA PALOMARES on: 02/26/2023 12:56 PM Modules accepted: Orders [facility] 02-26-2023 Miscellaneous Notes Addended by: ALLEGRA PALOMARES on: 02/26/2023 12:56 PM Modules accepted: Orders Orders pended, Pre-op checklist scanned, EGD order sent to ALS PLAN Encounter Diagnoses Name Primary? BENTLEY (obstructive sleep apnea) Yes Primary hypertension Gastroesophageal reflux disease without esophagitis Type 2 diabetes mellitus without complication, unspecified whether predatory animal exterminator insulin use (HCC) I have recommended proceeding with the evaluation and work-up for the primary procedure as outlined below: Requested records from GI Specialist Dr. Latesha Faulkner PATIENT SUMMARY Shawnee Mohr 68 y.o. female with Body mass index is 43.36 kg/m . Laparoscopic Mat-en-Y Gastric Bypass and Laparoscopic Liver Biopsy DM[x] HTN[x] BENTLEY[x] GERD[x] HL[x] OA[] Date of Surgery: TBD ALEXIS EPPERSON INITIAL TESTING RESULTS Labwork [x] CMP, TSH, Fasting Lipid Profile, Mg, Zinc, Vit B1 (whole blood), Vit B12, 25-OH Vit D, Fe, Ferritin, Folate Tobacco [x] Serum Nicotine / Cotinine [] Negative [] Positive PLEASE ADD SERUM NICOTINE/COTININE WITH INITIAL LABS ON ALL LRYGB PROCEDURES EGD [x] Dx: [] GERD [x] Dyspepsia [] Other Pathology [x] H. pylori [] Negative [] Positive UGI [] [] not ordered US Abdomen [x] [] not ordered BENTLEY eval [] [] On CPAP / Obtain settings Hematology [] [] Hypercoagulation panel Toxicology [] [] Urine drug screen [] EtOH screen Addtional [x] [x] Hgb A1c INITIAL CONSULTATIONS CLEARANCE / MANAGEMENT Psychology [x] Dietitian [x] Cardiology [x] Pulmonary [x] Others [] []Heme/Onc []Psychiatry []Pain mgmt PSD [x] Physician supervised diet: []None [x]3 mos []6 mos Preop diet [x] Preop low calorie diet: []None []1 wk [x]2 wks FINAL PRE-OP TESTING RESULTS Labwork [x] [x]Pre-op CBC [x]BMP []Serum Nicotine / Cotinine EKG [x] CXR [x] POST-OP MEDICATIONS Ulcer Ppx [x] Omeprazole 20 mg PO [x]QD []BID Gallstone Ppx [x] Ursodiol 300 mg [x]BID DVT Ppx [x] DVT prophylaxis per final preop visit estimated risk Estimated calculated risk: % Schedule final pre-operative office visit with surgeon, pre-operative education class, and pre-operative exercise class prior to date of surgery ATTESTATION I reviewed with the patient the details of the proposed operation. The risks benefits and options were discussed. Risks included but were not limited to bleeding, infection, damage to other surrounding organs, cardio-pulmonary complications related to anesthesia, conversion from laparoscopic to and open procedure, the need for reoperative or endoscopic therapy, the potential for prolonged mechanical ventilation, and . All questions were fully answered to the patient's satisfaction and they wish to proceed with surgical intervention. Greater than 51% of the 45 minute visit was spent as face to face encounter, counseling the patient and discussing the risks,benefits and options of surgery as well as the perioperative care plan. The patient was seen and examined independently and relevant data including a full chart rreview was performed by myself. Initial New [facility] surgical patient Navigation & Financial Counseling Discussion Patient Communication: In office SURGEON: [] JCrispin [] AD [] MP [x] TB [] LM PROCEDURE: [] LRYGB [] LSG [] SAYRA-S [] SAYRA [] UNDECIDED [] REV: SPECIFY: Confirmed pt wants to continue with surgical program/plan [] YES [] NO (complete program withdrawal note/process) CO-MORBIDS: [] NONE [] DM []HTN [] BENTLEY []GERD [] OTH: PRIVATE PAY: [] NO []YES DATE OF INITIAL BENEFITS VERIFICATION: TRANSFER FU: [] YES [] NO PRIMARY INSURANCE: Payor: [facility] MEDICARE / Plan: [facility] MEDICARE ADVANTAGE [id number] / Product Type: Medicare HMO / BENEFIT ON PLAN: [] NO [] YES BENEFIT MAX: [] NO [] YES -- BENEFIT MAX: $ EMPLOYER: DIET AND EXERCISE (DE) REQUIREMENT PRIMARY [] NONE [x]3M [] 6M []9M [] Medicare 4 Months [] SPR (3M) []OTHER: SECONDARY INSURANCE: BENEFIT ON PLAN: [] NO [] YES BENEFIT MAX: [] NO [] YES -- BENEFIT MAX: $ AUTH REQUIRED FROM SECONDARY [] NO [] YES DIET AND EXERCISE REQUIREMENT SECONDARY [] NONE []3M [] 6M [] Medicare 4 months [] SPR (3M) []OTHER: ___ [x] Discussed with patient: Financial cost overview (document signed and pt given copy at new pt consult visit with surgeon), Initial appointments: Bariatric Nutrition Assessment (BNA) & Diet and Exercise (DE) Patient to look for yellow envelope in mail. This yellow envelope will contain orders for labs, testing and required clearances. Pt encouraged to complete early in program to prevent delays. Encourage blood work to be draw by 1st DE appointment. [x] Reviewed OOP cost, including: [] Optifast cost of approximately $130-140/week x weeks immediately prior to surgery - used to induce rapid weight loss which results in decrease in size of liver and therefore facilitates laparoscopically surgery approach. [x] Overview of inpatient admission benefits - estimated inpatient co-pays, deductibles and/or co-insurance - Estimated OOP costs form reviewed with patient, and copy given to patient at new pt visit. [x] Reviewed next steps with patient: 1) Scheduled at new pt surgeon visit: Licensing Worker (RD) for a Nutrition Assessment (BNA) and Pre-operative Diet and Exercise (DE) appointment #1. [x] Patient reminded to arrive 15 minutes early for check in. Late arrivals may need to be rescheduled. 2) Schedule: Diet and Exercise Apt #2 only scheduled after initial BNA and DE completed, 3) Behavioral Health apt scheduled after DE started. Reviewed rational and goal of Behavioral Health appointments. 4) [x] Reinforced need to cancel any WMI appointments 48 hours in advance. Cautioned NS/Same day cancellations may result in delay in program or program completion hold. Noted: DE series needs to be a monthly series or insurance company may require repeat of the entire series. 5) [x] Smoker/tobacco products including vaping: reviewed need for cessation before surgery clearance and life long abstinence after surgery for best outcomes. Patient navigation to surgery: [x] Explained to patient that average time from initial consult to date of surgery can be 6-8 months. - Process can take longer if there are cancelled appointments, delays in testing and/or additional clearances that needs to be completed. - Reviewed importance of patient active engagement in making and keeping appointments to keep the process moving. - Reinforced need to cancel appointments at least 48 hours in advance. Reviewed that instances of No Shows and Same Day Appointment Cancellations may result in program/surgery delay or hold. [x] Patient advised of importance of having voicemail and MyChart for office communications and lab/testing results before and after surgery. documented in this encounter [facility] 02-26-2023 History of Present illness Narrative ENDOSCOPY ORDERS To be scheduled with: Dr. Faulkner Patient is: Pre-op/Pre-Bariatric Surgery CPT code: EGD with biopsy- CPT 47274 Diagnosis: Dyspepsia- K30 If pre-op, Diet & Exercise Requirements are, and started/scheduled on 04/08/2023: 3 months Home O2: No Known Difficult Intubation: No Pt scheduled MSC 06/23/23 at 12:30 printed documented in this encounter [facility] 02-26-2023 Telephone encounter Note Orders pended, Pre-op checklist scanned, EGD order sent to ALS [facility] 02-26-2023 Telephone encounter Note PLAN Encounter Diagnoses Name Primary? BENTLEY (obstructive sleep apnea) Yes Primary hypertension Gastroesophageal reflux disease without esophagitis Type 2 diabetes mellitus without complication, unspecified whether mcfp insulin use (HCC) I have recommended proceeding with the evaluation and work-up for the primary procedure as outlined below: Requested records from GI Specialist Dr. Latesha Faulkner PATIENT SUMMARY Shawnee Mohr 68 y.o. female with Body mass index is 43.36 kg/m . Laparoscopic Mat-en-Y Gastric Bypass and Laparoscopic Liver Biopsy DM[x] HTN[x] BENTLEY[x] GERD[x] HL[x] OA[] Date of Surgery: TBD ALEXIS EPPERSON INITIAL TESTING RESULTS Labwork [x] CMP, TSH, Fasting Lipid Profile, Mg, Zinc, Vit B1 (whole blood), Vit B12, 25-OH Vit D, Fe, Ferritin, Folate Tobacco [x] Serum Nicotine / Cotinine [] Negative [] Positive PLEASE ADD SERUM NICOTINE/COTININE WITH INITIAL LABS ON ALL LRYGB PROCEDURES EGD [x] Dx: [] GERD [x] Dyspepsia [] Other Pathology [x] H. pylori [] Negative [] Positive UGI [] [] not ordered US Abdomen [x] [] not ordered BENTLEY eval [] [] On CPAP / Obtain settings Hematology [] [] Hypercoagulation panel Toxicology [] [] Urine drug screen [] EtOH screen Addtional [x] [x] Hgb A1c INITIAL CONSULTATIONS CLEARANCE / MANAGEMENT Psychology [x] Dietitian [x] Cardiology [x] Pulmonary [x] Others [] []Heme/Onc []Psychiatry []Pain mgmt PSD [x] Physician supervised diet: []None [x]3 mos []6 mos Preop diet [x] Preop low calorie diet: []None []1 wk [x]2 wks FINAL PRE-OP TESTING RESULTS Labwork [x] [x]Pre-op CBC [x]BMP []Serum Nicotine / Cotinine EKG [x] CXR [x] POST-OP MEDICATIONS Ulcer Ppx [x] Omeprazole 20 mg PO [x]QD []BID Gallstone Ppx [x] Ursodiol 300 mg [x]BID DVT Ppx [x] DVT prophylaxis per final preop visit estimated risk Estimated calculated risk: % Schedule final pre-operative office visit with surgeon, pre-operative education class, and pre-operative exercise class prior to date of surgery ATTESTATION I reviewed with the patient the details of the proposed operation. The risks benefits and options were discussed. Risks included but were not limited to bleeding, infection, damage to other surrounding organs, cardio-pulmonary complications related to anesthesia, conversion from laparoscopic to and open procedure, the need for reoperative or endoscopic therapy, the potential for prolonged mechanical ventilation, and . All questions were fully answered to the patient's satisfaction and they wish to proceed with surgical intervention. Greater than 51% of the 45 minute visit was spent as face to face encounter, counseling the patient and discussing the risks,benefits and options of surgery as well as the perioperative care plan. The patient was seen and examined independently and relevant data including a full chart rreview was performed by myself. [facility] 02-18-2023 History of Present illness Narrative [facility] BARIATRIC NUTRITION ASSESSMENT / DIET & EXERCISE SURGICAL WEIGHT LOSS MANAGEMENT PROGRAM Date: 02/18/23 Patient Name: Shawnee Mohr Date of : 1955 Type of Assessment: [x] Surgical Patient - Pre-op Initial Assessment Weight Metrics: Today's Height: 5' 0.75 (1.543 m) Today's Weight: 233 lb 9.6 oz (106 kg) Today's BMI: Body mass index is 44.5 kg/m . Surgeon: Dr. 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 Depression Diabetes (HCC) Difficulty sleeping Dizziness Fatigue Fatty liver GERD (gastroesophageal reflux disease) HTN (hypertension) Hx: UTI (urinary tract infection) Liver fibrosis Memory difficulties Morbid obesity, unspecified obesity type (HCC) Muscle weakness BENTLEY (obstructive sleep apnea) Snoring SOBOE (shortness of breath on exertion) Current Medications: has a current medication list which includes the following prescription(s): amitriptyline, buspirone, cholecalciferol, cyanocobalamin, duloxetine, folic acid, insulin lispro, jardiance, latanoprost, linzess, lisinopril, loratadine, metoclopramide, multiple vitamins-minerals, pantoprazole, pregabalin, caretouch cpap & bipap hose, rimegepant sulfate, tresiba flextouch, trulicity, ursodiol, and vitamin e. Weight History Patient has been considering weight loss surgery for a few months Primary reason(s) for weight loss improve health Number of years over weight > 10 PREVIOUS WEIGHT LOSS ATTEMPTS Method When Amount lost Amount regained Most successful Tops Years ago 10 lb Weight Watchers Years ago 30 lb Post Weight Loss Surgery- Type: Patient's current diet quality, relative to the Past weight loss surgery diet is: [x] N/A CURRENT MEAL PLANNING Self Meals planned by X Food shopping done by X Meals cooked by X CURRENT EATING HABITS/ADDITIONAL INFORMATION 24 Hour Recall completed: Yes Breakfast: water or sf lemonade with meds (if eat in am is small, like a muffin) Lunch: sandwich-fast food fish sw w/out bun Dinner: baked steak; green beans; instant mashed potatoes with gravy Snack: while watching tv have pretzels or popcorn Drinks: no coffee; iced tea-32 oz per day Comments: Coke Zero 16 oz/day SUPPORT SYSTEM A. Family knowledgeable about/supportive of plans for weight loss surgery: Yes B. Patient understands that they must have someone in their home 24/ for the first week following surgery, or that they must be able to stay with someone for the first week Yes C. Co-workers knowledgeable about/supportive of plans for weight loss surgery: N/A KNOWLEDGE AND EDUCATION ASSESSMENT AND PLAN Patient's level of knowledge regarding the changes that will have to be made in their diet following weight loss surgery is: [x] Excellent - patient is well informed. Current eating practices that will require change with surgery: Meal Frequency RECOMMENDATIONS AND PLAN [x] Educational Materials Provided [x]Strategies for Eating handout given to and discussed with patient [x] Anticipate clearing patient for weight loss surgery, but need to see patient again: [x] after patient reviews educational materials [x] See goals noted below Diagnoses: GERD Note: Pt reports for initial BNA. D/E to begin 04/08/2023-3M. Pt with Ghosh's Esophagus-dx 1 month ago, per pt; Esophagus widened; pt also has Atrophic Gastritis; Pt reports frequent falls; pt describes as brain doesn't tell feet to move-Pt states PCP aware. Per diet recall, pt skips breakfast; pt includes soft foods to aid with swallowing. Pt drinks water throughout day, plus 32 oz caffeinated tea and Diet Coke. Currently no exercise. Labs N/A-will monitor as available. Reviewed BNA packet and rationale for post-op bariatric diet protocol. Pt agreeable to, and aided in developing, the goals as noted below. Goals: Include breakfast every day (ie: egg, yogurt, cottage cheese) Begin weaning caffeine Materials Provided: BNA packet Follow up: 4 weeks Pt encouraged to call/MyChart with questions. Bariatric Nutrition Assessment completed by: Estephania Winter RD documented in this encounter [facility] 02-18-2023 History of Present illness Narrative [facility] BARIATRIC NUTRITION ASSESSMENT / DIET & EXERCISE SURGICAL WEIGHT LOSS MANAGEMENT PROGRAM Date: 02/18/23 Patient Name: Shawnee Mohr Date of : 1955 Type of Assessment: [x] Surgical Patient - Pre-op Initial Assessment Weight Metrics: Today's Height: 5' 0.75 (1.543 m) Today's Weight: 233 lb 9.6 oz (106 kg) Today's BMI: Body mass index is 44.5 kg/m . Surgeon: Dr. 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 Depression Diabetes (HCC) Difficulty sleeping Dizziness Fatigue Fatty liver GERD (gastroesophageal reflux disease) HTN (hypertension) Hx: UTI (urinary tract infection) Liver fibrosis Memory difficulties Morbid obesity, unspecified obesity type (HCC) Muscle weakness BENTLEY (obstructive sleep apnea) Snoring SOBOE (shortness of breath on exertion) Current Medications: has a current medication list which includes the following prescription(s): amitriptyline, buspirone, cholecalciferol, cyanocobalamin, duloxetine, folic acid, insulin lispro, jardiance, latanoprost, linzess, lisinopril, loratadine, metoclopramide, multiple vitamins-minerals, pantoprazole, pregabalin, caretouch cpap & bipap hose, rimegepant sulfate, tresiba flextouch, trulicity, ursodiol, and vitamin e. Weight History Patient has been considering weight loss surgery for a few months Primary reason(s) for weight loss improve health Number of years over weight > 10 PREVIOUS WEIGHT LOSS ATTEMPTS Method When Amount lost Amount regained Most successful Tops Years ago 10 lb Weight Watchers Years ago 30 lb Post Weight Loss Surgery- Type: Patient's current diet quality, relative to the Past weight loss surgery diet is: [x] N/A CURRENT MEAL PLANNING Self Meals planned by X Food shopping done by X Meals cooked by X CURRENT EATING HABITS/ADDITIONAL INFORMATION 24 Hour Recall completed: Yes Breakfast: water or sf lemonade with meds (if eat in am is small, like a muffin) Lunch: sandwich-fast food fish sw w/out bun Dinner: baked steak; green beans; instant mashed potatoes with gravy Snack: while watching tv have pretzels or popcorn Drinks: no coffee; iced tea-32 oz per day Comments: [employer] Zero 16 oz/day SUPPORT SYSTEM A. Family knowledgeable about/supportive of plans for weight loss surgery: Yes B. Patient understands that they must have someone in their home / for the first week following surgery, or that they must be able to stay with someone for the first week Yes C. Co-workers knowledgeable about/supportive of plans for weight loss surgery: N/A KNOWLEDGE AND EDUCATION ASSESSMENT AND PLAN Patient's level of knowledge regarding the changes that will have to be made in their diet following weight loss surgery is: [x] Excellent - patient is well informed. Current eating practices that will require change with surgery: Meal Frequency RECOMMENDATIONS AND PLAN [x] Educational Materials Provided [x]Strategies for Eating handout given to and discussed with patient [x] Anticipate clearing patient for weight loss surgery, but need to see patient again: [x] after patient reviews educational materials [x] See goals noted below Diagnoses: GERD Note: Pt reports for initial BNA. D/E to begin 04/08/2023-3M. Pt with Ghosh's Esophagus-dx 1 month ago, per pt; Esophagus widened; pt also has Atrophic Gastritis; Pt reports frequent falls; pt describes as brain doesn't tell feet to move-Pt states PCP aware. Per diet recall, pt skips breakfast; pt includes soft foods to aid with swallowing. Pt drinks water throughout day, plus 32 oz caffeinated tea and Diet Coke. Currently no exercise. Labs N/A-will monitor as available. Reviewed BNA packet and rationale for post-op bariatric diet protocol. Pt agreeable to, and aided in developing, the goals as noted below. Goals: Include breakfast every day (ie: egg, yogurt, cottage cheese) Begin weaning caffeine Materials Provided: BNA packet Follow up: 4 weeks Pt encouraged to call/MyChart with questions. Bariatric Nutrition Assessment completed by: Estephania Winter RD documented in this encounter [facility] 02-08-2023 Note Initial New [facility] surg ical patient Navigation & Financial Counseling Discussion Patient Communication: In office SURGEON: [] KANNAN [] AD [] MP [x] TB [] LM PROCEDURE: [] LRYGB [] LSG [] SAYRA-S [] SAYRA [] UNDECIDED [] REV: SPECIFY: Confirmed pt wants to continue with surgical program/plan [] YES [] NO (complete program withdrawal note/process) CO-MORBIDS: [] NONE [] DM []HTN [] BENTLEY []GERD [] OTH: PRIVATE PAY: [] NO []YES DATE OF INITIAL BENEFITS VERIFICATION: TRANSFER FU: [] YES [] NO PRIMARY INSURANCE: Payor: [employer] MEDICARE / Plan: [facility] MEDICARE ADVANTAGE [id number] / Product Type: Medicare HMO / BENEFIT ON PLAN: [] NO [] YES BENEFIT MAX: [] NO [] YES -- BENEFIT MAX: $ EMPLOYER: DIET AND EXERCISE (DE) REQUIREMENT PRIMARY [] NONE [x]3M [] 6M []9M [] Medicare 4 Months [] SPR (3M) []OTHER: SECONDARY INSURANCE: BENEFIT ON PLAN: [] NO [] YES BENEFIT MAX: [] NO [] YES -- BENEFIT MAX: $ AUTH REQUIRED FROM SECONDARY [] NO [] YES DIET AND EXERCISE REQUIREMENT SECONDARY [] NONE []3M [] 6M [] Medicare 4 months [] SPR (3M) []OTHER: ___ [x] Discussed with patient: Financial cost overview (document signed and pt given copy at new pt consult visit with surgeon), Initial appointments: Bariatric Nutrition Assessment (BNA) & Diet and Exercise (DE) Patient to look for yellow envelope in mail. This yellow envelope will contain orders for labs, testing and required clearances. Pt encouraged to complete early in program to prevent delays. Encourage blood work to be draw by 1st DE appointment. [x] Reviewed OOP cost, including: [] Optifast cost of approximately $130-140/week x weeks immediately prior to surgery - used to induce rapid weight loss which results in decrease in size of liver and therefore facilitates laparoscopically surgery approach. [x] Overview of inpatient admission benefits - estimated inpatient co-pays, deductibles and/or co-insurance - Estimated OOP costs form reviewed with patient, and copy given to patient at new pt visit. [x] Reviewed next steps with patient: 1) Scheduled at new pt surgeon visit: Licensing Worker (RD) for a Nutrition Assessment (BNA) and Pre-operative Diet and Exercise (DE) appointment #1. [x] Patient reminded to arrive 15 minutes early for check in. Late arrivals may need to be rescheduled. 2) Schedule: Diet and Exercise Apt #2 only scheduled after initial BNA and DE completed, 3) Behavioral Health apt scheduled after DE started. Reviewed rational and goal of Behavioral Health appointments. 4) [x] Reinforced need to cancel any WMI appointments 48 hours in advance. Cautioned NS/Same day cancellations may result in delay in program or program completion hold. Noted: DE series needs to be a monthly series or insurance company may require repeat of the entire series. 5) [x] Smoker/tobacco products including vaping: reviewed need for cessation before surgery clearance and life long abstinence after surgery for best outcomes. Patient navigation to surgery: [x] Explained to patient that average time from initial consult to date of surgery can be 6-8 months. - Process can take longer if there are cancelled appointments, delays in testing and/or additional clearances that needs to be completed. - Reviewed importance of patient active engagement in making and keeping appointments to keep the process moving. - Reinforced need to cancel appointments at least 48 hours in advance. Reviewed that instances of No Shows and Same Day Appointment Cancellations may result in program/surgery delay or hold. [x] Patient advised of importance of having voicemail and MyChart for office communications and lab/testing results before and after surgery. [facility] 02-08-2023 Telephone encounter Note Initial New [facility] surgical patient Navigation & Financial Counseling Discussion Patient Communication: In office SURGEON: [] KANNAN [] AD [] MP [x] TB [] LM PROCEDURE: [] LRYGB [] LSG [] SAYRA-S [] SAYRA [] UNDECIDED [] REV: SPECIFY: Confirmed pt wants to continue with surgical program/plan [] YES [] NO (complete program withdrawal note/process) CO-MORBIDS: [] NONE [] DM []HTN [] BENTLEY []GERD [] OTH: PRIVATE PAY: [] NO []YES DATE OF INITIAL BENEFITS VERIFICATION: TRANSFER FU: [] YES [] NO PRIMARY INSURANCE: Payor: [facility] MEDICARE / Plan: [facility] MEDICARE ADVANTAGE [id number] / Product Type: Medicare HMO / BENEFIT ON PLAN: [] NO [] YES BENEFIT MAX: [] NO [] YES -- BENEFIT MAX: $ EMPLOYER: DIET AND EXERCISE (DE) REQUIREMENT PRIMARY [] NONE [x]3M [] 6M []9M [] Medicare 4 Months [] SPR (3M) []OTHER: SECONDARY INSURANCE: BENEFIT ON PLAN: [] NO [] YES BENEFIT MAX: [] NO [] YES -- BENEFIT MAX: $ AUTH REQUIRED FROM SECONDARY [] NO [] YES DIET AND EXERCISE REQUIREMENT SECONDARY [] NONE []3M [] 6M [] Medicare 4 months [] SPR (3M) []OTHER: ___ [x] Discussed with patient: Financial cost overview (document signed and pt given copy at new pt consult visit with surgeon), Initial appointments: Bariatric Nutrition Assessment (BNA) & Diet and Exercise (DE) Patient to look for yellow envelope in mail. This yellow envelope will contain orders for labs, testing and required clearances. Pt encouraged to complete early in program to prevent delays. Encourage blood work to be draw by 1st DE appointment. [x] Reviewed OOP cost, including: [] Optifast cost of approximately $130-140/week x weeks immediately prior to surgery - used to induce rapid weight loss which results in decrease in size of liver and therefore facilitates laparoscopically surgery approach. [x] Overview of inpatient admission benefits - estimated inpatient co-pays, deductibles and/or co-insurance - Estimated OOP costs form reviewed with patient, and copy given to patient at new pt visit. [x] Reviewed next steps with patient: 1) Scheduled at new pt surgeon visit: Licensing Worker (RD) for a Nutrition Assessment (BNA) and Pre-operative Diet and Exercise (DE) appointment #1. [x] Patient reminded to arrive 15 minutes early for check in. Late arrivals may need to be rescheduled. 2) Schedule: Diet and Exercise Apt #2 only scheduled after initial BNA and DE completed, 3) Behavioral Health apt scheduled after DE started. Reviewed rational and goal of Behavioral Health appointments. 4) [x] Reinforced need to cancel any WMI appointments 48 hours in advance. Cautioned NS/Same day cancellations may result in delay in program or program completion hold. Noted: DE series needs to be a monthly series or insurance company may require repeat of the entire series. 5) [x] Smoker/tobacco products including vaping: reviewed need for cessation before surgery clearance and life long abstinence after surgery for best outcomes. Patient navigation to surgery: [x] Explained to patient that average time from initial consult to date of surgery can be 6-8 months. - Process can take longer if there are cancelled appointments, delays in testing and/or additional clearances that needs to be completed. - Reviewed importance of patient active engagement in making and keeping appointments to keep the process moving. - Reinforced need to cancel appointments at least 48 hours in advance. Reviewed that instances of No Shows and Same Day Appointment Cancellations may result in program/surgery delay or hold. [x] Patient advised of importance of having voicemail and MyChart for office communications and lab/testing results before and after surgery. [facility] 02-08-2023 Note BARIATRIC AND METABO LIC SURGERY [facility] INITIAL EVALUATION - HISTORY AND PHYSICAL 02/08/23 PATIENT: Shawnee Mohr DATE OF : 1955 ----- HISTORY OF PRESENT ILLNESS Chief Complaint: Morbid Obesity and associated comorbid conditions. Shawnee Mohr is a 68 y.o. female with morbid obesity and associated comorbid conditions who [facility] for bariatric surgery. The patient stands Height: 5' 0.75 (154.3 cm) ([facility]) tall with a weight of Weight: 227 lb 9.6 oz (103 kg) , and has a BMI of Body mass index is 43.36 kg/m?.. The patient has failed multiple attempts at non-surgical weight loss, and is now seeking surgical intervention to promote permanent and consistent weight loss. The patient suffers from multiple co-morbidities as a result of morbid obesity as outlined in the past medical history. The patient denies a history of myocardia infarction, deep vein thrombosis, pulmonary embolism, renal failure, hepatic failure, stroke, and seizure. She does not smoke, and does not drink alcohol. Reports she was referred by GI specialist. Got second opinion from General Surgeon who all recommended that she be seen by Bariatric Surgeon. Review of Systems Constitutional: Negative for fatigue and fever. HENT: Negative for congestion, rhinorrhea and trouble swallowing. Respiratory: Negative for cough, chest tightness and shortness of breath. Cardiovascular: Negative for chest pain, palpitations and leg swelling. Gastrointestinal: Negative for abdominal distention, abdominal pain, blood in stool, constipation, diarrhea and nausea. GERD Genitourinary: Negative for dysuria, flank pain, frequency and urgency. Musculoskeletal: Negative for arthralgias, back pain and myalgias. Skin: Negative for color change and rash. Neurological: Negative for light-headedness and headaches. Psychiatric/Behavioral: Negative for dysphoric mood. The patient is not nervous/anxious. PAST HISTORIES Past Medical History: Diagnosis Date Anxiety Back pain Depression Diabetes (HCC) Difficulty sleeping Dizziness Fatigue Fatty liver GERD (gastroesophageal reflux disease) HTN (hypertension) Hx: UTI (urinary tract infection) Memory difficulties Morbid obesity, unspecified obesity type (HCC) Muscle weakness BENTLEY (obstructive sleep apnea) Snoring SOBOE (shortness of breath on exertion) Past Surgical History: Procedure Laterality Date CHOLECYSTECTOMY [place] [facility] HYSTERECTOMY 2018 [place] TOTAL KNEE ARTHROPLASTY Right [place] [facility] TOTAL KNEE ARTHROPLASTY Left Family History Problem Relation Name Age of Onset Diabetes Mother Multiple sclerosis Mother Clotting disorder Father Arthritis Sister Social History Tobacco Use Smoking status: Never Smokeless tobacco: Never Substance Use Topics Alcohol use: Not Currently Patient's Medications New Prescriptions No medications on file Previous Medications AMITRIPTYLINE (ELAVIL) 150 MG TABLET Take 150 mg by mouth Nightly. BUSPIRONE (BUSPAR) 10 MG TABLET Take 10 mg by mouth 3 times daily. CHOLECALCIFEROL (VITAMIN D-3) 1.25 MG (21283 UT) CAPSULE Take 50,000 Units by mouth 1 (one) time per week. CYANOCOBALAMIN (VITAMIN B-12 IJ) Inject as directed every 30 (thirty) days. DULOXETINE (CYMBALTA) [address] CAPSULE Take 120 mg by mouth daily. FOLIC ACID (FOLVITE) 1 MG TABLET Take 1,000 mcg by mouth daily. INSULIN LISPRO (HUMALOG) 100 UNIT/ML INJECTION 12 Units 3 times daily. Plus sliding scale JARDIANCE 10 MG Take 10 mg by mouth daily. LATANOPROST (XALATAN) 0.005 % OPHTHALMIC SOLUTION 1 drop before bedtime. LINZESS 145 MCG CAPSULE daily. LISINOPRIL 2.5 MG TABLET Take 2.5 mg by mouth daily. LORATADINE (CLARITIN) 10 MG TABLET Take 10 mg by mouth daily. METOCLOPRAMIDE (REGLAN) 5 MG TABLET 5 mg 3 times daily. MULTIPLE VITAMINS-MINERALS (PRESERVISION AREDS 2 PO) Take by mouth 2 times daily. PANTOPRAZOLE (PROTONIX) 40 MG EC TABLET Take 40 mg by mouth at noon and 40 mg in the evening. PREGABALIN (LYRICA) 50 MG CAPSULE Take 50 mg by mouth at noon and 50 mg in the evening. RESPIRATORY THERAPY SUPPLIES (CARETOUCH CPAP & BIPAP HOSE) MISC Nightly. RIMEGEPANT SULFATE 75 MG TABLET DISPERSIBLE Take 75 mg by mouth. As needed TRESIBA FLEXTOUCH 100 UNIT/ML INJECTION 40 Units Nightly. TRULICITY 4.5 MG/0.5ML SOLUTION PEN-INJECTOR 4.5 mg 1 (one) time per week. URSODIOL (ACTIGALL) 250 MG TABLET Take 250 mg by mouth 2 times daily. VITAMIN E 180 MG (400 UNIT) CAPSULE Take 2 capsules by mouth at noon and 2 capsules in the evening. Modified Medications No medications on file Discontinued Medications No medications on file Allergies Allergen Reactions Biotin Anaphylaxis Statins Other Muscle pain / fatigue, dry mouth PHYSICAL EXAM BP (!) 1 (more content not included)... [facility] 04-21-2021 Note HNO ID: [id number] Author: Lebron Downing Service: ? Author Type: Physician Type: Progress Notes Filed: 04/21/2021 1:51 PM Note Text: Initial Office Visit Subjective: This 66 year old female presents to clinic for diabetic foot check. Patient has no issues with her foot. She is here essentially to have a diabetic foot exam. She does have bunion of b/l feet but does not have any issues. Patient admits to being diabetic for +30 years now. Patient =B/T/N in feet at this time. Patient +pain in legs when walking. No other pedal complaints at this time. No change in medications or medical history since last visit. PAIN EVALUATION No data found in the last 1 encounters. Hemoglobin A1C (%) Date Value 02/03/2018 7.2 12/24/2017 7.2 08/30/2017 8.2 04/18/2017 8.4 11/23/2016 7.4 PCP: Cheng Becerril MD, MD PAST MEDICAL HISTORY Diagnosis Date - Anxiety and depression - Bilateral leg edema - Chronic fatigue syndrome - Cyst of right kidney 12/26/2017 - Elevated alkaline phosphatase level - Fibromyalgia - GERD (gastroesophageal reflux disease) - Gout - History of Lyme disease - Hypertension - Insomnia - Macular degeneration - Mixed hyperlipidemia - Morbid obesity (HCC) - BENTLEY on CPAP - Osteoporosis - Type 2 diabetes, uncontrolled, with neuropathy (HCC) Dr. Reyna - Vitamin D deficiency Current Outpatient Medications Medication Sig - CPAP CPAP Active 0 .Route .MEDSUPPLY September 24, 2020 12:17pm 14 cm H2O - alendronate (FOSAMAX) 70 mg tablet Take 70 mg by mouth. - amitriptyline (ELAVIL) 100 mg tablet - ACCU-CHEK GUIDE TEST STRIPS test strip - busPIRone (BUSPAR) 10 mg tablet Take 3 tablets by mouth once daily. - Cimetidine 800 mg tablet Take 800 mg by mouth. - folic acid 1 mg tablet - insulin lispro (HUMALOG KWIKPEN INSULIN) 100 unit/mL Sliding scale 140-160 4 units, 160-180 6 units, 180-200 8 units 200 or higher 10 units. max 30 UNITS DAILY - latanoprost (XALATAN) 0.005 % ophthalmic solution - lisinopril (ZESTRIL, PRINIVIL) 5 mg tablet Take 5 mg by mouth. - pantoprazole DR (PROTONIX) 40 mg tablet Take by mouth. - simethicone, chewable (MYLICON) 80 mg chewable tablet Take 80 mg by mouth. - TRULICITY 1.5 mg/0.5 mL pnij Inject 1.5 mg subcutaneously once each week. - insulin glargine (BASAGLAR KWIKPEN U-100 INSULIN) 100 unit/mL (3 mL) inpn Inject 25 Units subcutaneously daily at bedtime. - aspirin, enteric coated (ECOTRIN LOW STRENGTH) 81 mg EC tablet Take 1 tablet by mouth once daily. - furosemide (LASIX) 20 mg tablet Take 1 tablet by mouth once daily. (Patient taking differently: Take 40 mg by mouth once daily. ) - lidocaine (LIDODERM) 5 % Apply 1 patch as directed once daily and remove after 12 hours (12 hrs on/12 hrs off) - diclofenac sodium (VOLTAREN) 1 % topical gel Lower extremities:Apply 4 g of 1% gel to affected area 4 times daily (maximum: 16 g per joint per day). Upper extremities: Apply 2 g of 1% gel to affected area 4 times daily (maximum: 8 g per joint per day) - multivitamin with minerals (ICAPS PLUS) tablet Take 1 tablet by mouth once daily. - DULoxetine (CYMBALTA) 60 mg capsule TAKE 2 CAPSULES BY MOUTH ONCE DAILY - ergocalciferol, vitamin D2, (VITAMIN D) 50,000 unit capsule Take 1 capsule by mouth once each week. (Every Tuesday, for example) (Patient taking differently: Take 50,000 Units by mouth two times a week. (Every Tuesday, for example) ) - allopurinol (ZYLOPRIM) 300 mg tablet Take 1 tablet by mouth daily at bedtime. - fluticasone (FLONASE) 50 mcg/actuation nasal spray Use 2 Sprays in each nostril daily at bedtime. - potassium chloride (KLOR-CON 10) 10 mEq tablet Take 1 tablet by mouth once daily. - albuterol HFA (PROAIR HFA) 90 mcg/actuation inhaler Inhale 1-2 Puffs as instructed every 4 hours as needed for Wheezing/Shortness of Breath. - gabapentin (NEURONTIN) 300 mg capsule Take 1 cap (300 mg) in AM, 1 cap (300 mg) in afternoon, and 2 caps (600 mg) in evening. - clonazePAM (KLONOPIN) 1 mg tablet Take 1 tablet by mouth daily at bedtime for 90 days. - omeprazole (PRILOSEC) 20 mg capsule Take 1 capsule by mouth once daily. - glimepiride (AMARYL) 4 mg tablet Take 1 tablet with breakfast and 1 tablet with dinner - traZODone (DESYREL) 100 mg tablet Take 1 tablet by mouth daily at bedtime. - felodipine ER (PLENDIL) 10 mg 24 hr tablet Take 1 tablet by mouth once daily. - atorvastatin (LIPITOR) 40 mg tablet Take 1 tablet by mouth daily at bedtime. - gemfibrozil (LOPID) 600 mg tablet Take 1 tablet by mouth twice daily. No current facility-administered medications for this visit. ALLERGIES Allergen Reactions - Gabapentin Intolerance - Fynmklh-Pok-Kze Red* Intolerance PAST SURGICAL HISTORY Procedure Laterality Date - PAST SURGICAL HISTORY OF 2006 bilateral knee replacements - REMOVAL GALLBLADDER 1994 laparoscopic cholecystectomy FAMILY HISTORY Problem Relation Age of On (more content not included)... [facility] 04-21-2021 Note HNO ID: [id number] Author: Silvia Bragg Service: ? Author Type: ? Type: Progress Notes Filed: 04/21/2021 1:51 PM Note Text: New patient. Visit for bilateral foot pain, bilateral bunion, and diabetic foot care/exam. Patient had xray prior to visit. Silvia Bragg [facility] 04-21-2021 Note HNO ID: [id number] Author: Carie Allen RT(R) Service: Radiology Author Type: Dog Day Care Attendant Type: Progress Notes Filed: 04/21/2021 12:39 PM Note Text: Radiology Service Progress Note PATIENT NAME: Shawnee Mohr DATE OF SERVICE: April 21, 2021 TIME: 12:38 PM PATIENT IDENTITY VERIFICATION COMPLETED USING TWO (2) IDENTIFIERS: Name and Date of confirmed by patient verbally. FALL SCREENING: Has the patient had 2 falls in the last year or 1 fall with injury or currently using an Ambulatory Assistive Device (Walker, Cane, Wheelchair, Crutches, etc.)? No PATIENT GENDER DATA: Female. status: : No status: NO. PATIENT RELEVANT IMPLANT DATA REVIEWED: Not Applicable RADIOLOGY DEPARTMENT: General X-ray: Exam(s) Completed: Lower Extremity X-Ray(s): Foot, Bilateral and Wt. Bearing PERIPHERAL IV DATA: Not applicable SIGNED BY: RT Turner(R) April 21, 2021 12:38 PM [facility]* Diagnosis Gastroesophageal reflux disease without esophagitis- Primary Esophageal reflux documented in this encounter [facility]* Diagnosis BENTLEY (obstructive sleep apnea) Obstructive sleep apnea (adult) (pediatric) Primary hypertension Unspecified essential hypertension Gastroesophageal reflux disease without esophagitis Esophageal reflux Type 2 diabetes mellitus without complication, unspecified whether mcfp insulin use (HCC) Morbid obesity, unspecified obesity type (HCC) documented in this encounter [facility]* Diagnosis Ghosh's esophagus with dysplasia- Primary BENTLEY (obstructive sleep apnea) Obstructive sleep apnea (adult) (pediatric) Primary hypertension Unspecified essential hypertension Gastroesophageal reflux disease without esophagitis Esophageal reflux Type 2 diabetes mellitus without complication, unspecified whether predatory animal exterminator insulin use (HCC) Morbid obesity, unspecified obesity type (HCC) documented in this encounter [facility]* Diagnosis Ghosh's esophagus with dysplasia- Primary BENTLEY (obstructive sleep apnea) Obstructive sleep apnea (adult) (pediatric) Primary hypertension Unspecified essential hypertension Gastroesophageal reflux disease without esophagitis Esophageal reflux Type 2 diabetes mellitus without complication, unspecified whether mcfp insulin use (HCC) Morbid obesity, unspecified obesity type (HCC) [facility]* Diagnosis Morbid obesity due to excess calories (HCC)- Primary BENTLEY (obstructive sleep apnea) Obstructive sleep apnea (adult) (pediatric) Hypertension, unspecified type Other specified diabetes mellitus with other specified complication, unspecified whether predatory animal exterminator insulin use (HCC) documented [facility] encounter [facility]* Diagnosis Dyspepsia Dyspepsia and other specified disorders of function of stomach documented [facility]* Diagnosis Ghosh's esophagus with dysplasia- Primary BENTLEY (obstructive sleep apnea) Obstructive sleep apnea (adult) (pediatric) Primary hypertension Unspecified essential hypertension Gastroesophageal reflux disease without esophagitis Esophageal reflux Type 2 diabetes mellitus without complication, unspecified whether mcfp insulin use (HCC) Morbid obesity, unspecified obesity type (HCC) Delayed gastric emptying Dyspepsia and other specified disorders of function of stomach documented in [facility]* Diagnosis Ghosh's esophagus with dysplasia- Primary BENTLEY (obstructive sleep apnea) Obstructive sleep apnea (adult) (pediatric) Primary hypertension Unspecified essential hypertension Gastroesophageal reflux disease without esophagitis Esophageal reflux Type 2 diabetes mellitus without complication, unspecified whether mcfp insulin use (HCC) Morbid obesity, unspecified obesity type (HCC) Delayed gastric emptying Dyspepsia and other specified disorders of function of stomach [facility]* Diagnosis Type 2 diabetes mellitus without complication, unspecified whether mcfp insulin use (HCC) Delayed gastric emptying Dyspepsia and other specified disorders of function of stomach [facility]* Diagnosis Ghosh's esophagus with dysplasia- Primary BENTLEY (obstructive sleep apnea) Obstructive sleep apnea (adult) (pediatric) Primary hypertension Unspecified essential hypertension Gastroesophageal reflux disease without esophagitis Esophageal reflux Type 2 diabetes mellitus without complication, unspecified whether predatory animal exterminator insulin use (HCC) Morbid obesity, unspecified obesity type (HCC) Delayed gastric emptying Dyspepsia and other specified disorders of function of stomach Type 2 diabetes mellitus without complication, unspecified whether predatory animal exterminator insulin use (HCC) Delayed gastric emptying Dyspepsia and other specified disorders of function of stomach [facility]* Diagnosis Ghosh's esophagus with dysplasia- Primary BENTLEY (obstructive sleep apnea) Obstructive sleep apnea (adult) (pediatric) Primary hypertension Unspecified essential hypertension Gastroesophageal reflux disease without esophagitis Esophageal reflux Type 2 diabetes mellitus without complication, unspecified whether mcfp insulin use (HCC) Morbid obesity, unspecified obesity type (HCC) Delayed gastric emptying Dyspepsia and other specified disorders of function of stomach Type 2 diabetes mellitus without complication, unspecified whether mcfp insulin use (HCC) Delayed gastric emptying Dyspepsia and other specified disorders of function of stomach documented [facility]* Diagnosis Ghosh's esophagus with dysplasia- Primary BENTLEY (obstructive sleep apnea) Obstructive sleep apnea (adult) (pediatric) Primary hypertension Unspecified essential hypertension Gastroesophageal reflux disease without esophagitis Esophageal reflux Type 2 diabetes mellitus without complication, unspecified whether mcfp insulin use (HCC) Morbid obesity, unspecified obesity type (HCC) Delayed gastric emptying Dyspepsia and other specified disorders of function of stomach Type 2 diabetes mellitus without complication, unspecified whether mcfp insulin use (HCC) Delayed gastric emptying Dyspepsia and other specified disorders of function of stomach [facility] Diagnosis Ghosh's esophagus with dysplasia- Primary BENTLEY (obstructive sleep apnea) Obstructive sleep apnea (adult) (pediatric) Primary hypertension Unspecified essential hypertension Gastroesophageal reflux disease without esophagitis Esophageal reflux Type 2 diabetes mellitus without complication, unspecified whether mcfp insulin use (HCC) Morbid obesity, unspecified obesity type (HCC) Delayed gastric emptying Dyspepsia and other specified disorders of function of stomach Type 2 diabetes mellitus without complication, unspecified whether predatory animal exterminator insulin use (HCC) Delayed gastric emptying Dyspepsia and other specified disorders of function of stomach [facility]* Diagnosis Ghosh's esophagus with dysplasia- Primary BENTLEY (obstructive sleep apnea) Obstructive sleep apnea (adult) (pediatric) Primary hypertension Unspecified essential hypertension Gastroesophageal reflux disease without esophagitis Esophageal reflux Type 2 diabetes mellitus without complication, unspecified whether predatory animal exterminator insulin use (HCC) Morbid obesity, unspecified obesity type (HCC) Delayed gastric emptying Dyspepsia and other specified disorders of function of stomach Type 2 diabetes mellitus without complication, unspecified whether predatory animal exterminator insulin use (HCC) Delayed gastric emptying Dyspepsia and other specified disorders of function of stomach [facility]* Diagnosis Morbid obesity due to excess calories (HCC)- Primary Hypertension, unspecified type [facility]* Diagnosis Morbid obesity due to excess calories (HCC)- Primary Hypertension, unspecified type [facility]* Diagnosis Ghosh's esophagus with dysplasia- Primary BENTLEY (obstructive sleep apnea) Obstructive sleep apnea (adult) (pediatric) Primary hypertension Unspecified essential hypertension Gastroesophageal reflux disease without esophagitis Esophageal reflux Type 2 diabetes mellitus without complication, unspecified whether predatory animal exterminator insulin use (HCC) Morbid obesity, unspecified obesity type (HCC) Delayed gastric emptying Dyspepsia and other specified disorders of function of stomach Encounter for screening for tobacco use Pre-operative laboratory examination Pre-procedural laboratory examination Type 2 diabetes mellitus without complication, unspecified whether mcfp insulin use (HCC) Delayed gastric emptying Dyspepsia and other specified disorders of function of stomach documented in this encounter [facility] note* Diagnosis Morbid obesity due to excess calories (HCC)- Primary Hypertension, unspecified type documented in this encounter [facility] note* Diagnosis Ghosh's esophagus with dysplasia- Primary BENTLEY (obstructive sleep apnea) Obstructive sleep apnea (adult) (pediatric) Primary hypertension Unspecified essential hypertension Gastroesophageal reflux disease without esophagitis Esophageal reflux Type 2 diabetes mellitus without complication, unspecified whether mcfp insulin use (HCC) Morbid obesity, unspecified obesity type (HCC) Delayed gastric emptying Dyspepsia and other specified disorders of function of stomach Encounter for screening for tobacco use Pre-operative laboratory examination Pre-procedural laboratory examination Type 2 diabetes mellitus without complication, unspecified whether predatory animal exterminator insulin use (HCC) Delayed gastric emptying Dyspepsia and other specified disorders of function of stomach GERD (gastroesophageal reflux disease) Esophageal reflux documented in this encounter [facility] note* Diagnosis GERD (gastroesophageal reflux disease) Esophageal reflux documented in this encounter [facility] note* Diagnosis Gastroesophageal reflux disease without esophagitis- Primary Esophageal reflux documented in this encounter [facility] Discharge instructions* Attachments The following attachments cannot be sent through Care Everywhere. * Upper GI Endoscopy Discharge Instructions (Fijian) * Moderate Sedation in Adults Discharge Instructions (Fijian) [facility] Consultation (Routine) - Pending Review Specialty Diagnoses / Procedures Referred By Adrian davies Referred To Contact Pulmonary Disease / Pulmonology Diagnoses BENTLEY (obstructive sleep apnea) Primary hypertension Morbid obesity, unspecified obesity type (HCC) Procedures [facility] OFFICE[facility]OUTPATIENT [facility] 60-74 MINUTES Bernadine Alvarado NP [address] [place] [address] [facility] [address] [place] [address] Referral ID Status Reason Start Date Expiration Date Visits Requested Visits Authorized [id number] Pending Review Specialty Services Required 02/28/2023 02/28/2024 1 1 * Consultation (Elective) - Pending Review Specialty Diagnoses / Procedures Referred By Adrian davies Referred To Contact Cardiology Diagnoses Primary hypertension Type 2 diabetes mellitus without complication, unspecified whether mcfp insulin use (HCC) Morbid obesity, unspecified obesity type (HCC) Procedures [facility] OFFICE/OUTPATIENT NEW HIGH MDM 60-74 MINUTES Bernadine Alvarado NP [address] [place] [address] [address] [facility] [address] [place] [address] Referral ID Status Reason Start Date Expiration Date Visits Requested Visits Authorized [id number] Pending Review Specialty Services Required 02/28/2023 02/28/2024 1 1 [facility] Summary Purpose Family History No Family History Records FoundNo Family History Records FoundNo Family History Records FoundNo Family History Records FoundNo Family History Records Found Advance Directives No Advanced Directives Records FoundDocuments on File Type Date Recorded Patient Pain Management Physician Expl anation Advance Directives and Living Will Power of Studio Musician Latest Code Status on File Code Status Date Activated Date Inactivated Comments Full Code 03/15/2019 10:23 AM 03/15/2019 3:07 PM Documents on File Type Date Recorded Patient Pain Management Physician Expl anation Advance Directives and Living Will Power of Studio Musician Latest Code Status on File Code Status Date Activated Date Inactivated Comments Full Code 03/15/2019 10:23 AM 03/15/2019 3:07 PM Documents on File Type Date Recorded Patient Pain Management Physician Expl anation ACP-Advance Directive ACP-Power of Studio Musician Documents on File Type Date Recorded Patient Pain Management Physician Expl anation ACP-Advance Directive ACP-Power of Studio Musician Latest Code Status on File Code Status Date Activated Date Inactivated Comments Full Code 06/23/2023 9:13 AM 06/23/2023 12:37 PM Latest Code Status on File Code Status Date Activated Date Inactivated Comments Full Code 06/23/2023 9:13 AM 06/23/2023 12:37 PM Latest Code Status on File Code Status Date Activated Date Inactivated Comments Full Code 08/29/2023 10:42 AM 08/29/2023 1:42 PM Code Status History Code Status Date Activated Date Inactivated Comments Full Code 06/23/2023 9:13 AM 06/23/2023 12:37 PM Latest Code Status on File Code Status Date Activated Date Inactivated Comments Full Code 08/29/2023 10:42 AM 08/29/2023 1:42 PM Code Status History Code Status Date Activated Date Inactivated Comments Full Code 06/23/2023 9:13 AM 06/23/2023 12:37 PM Reason for Referral Status Reason Specialty Diagnoses / Procedures Referred By Contact Referred To Contact Pending Review Echocardiography Diagnoses Type 2 diabetes, uncontrolled, with neuropathy (HCC) Shortness of breath Procedures ECHO 2D WO Color Doppler Complete HC 2D ECHO WITHOUT CONTRAST - WITH DOP/COLOR FLOW Edgar Dennis PA [address] [place] [address] [facility] [address] [place] [address] Status Reason Specialty Diagnoses / Procedures Referred By Contact Referred To Contact Not Required - [facility] Diagnoses Oropharyngeal dysphagia Procedures FL Modified Barium Swallow W Video Sajan Ramos MD [address] [place] [address] Status Reason Specialty Diagnoses / Procedures Re ferred By Contact Referred To Contact Not Required - [facility] Diagnoses Shortness of breath Procedures Full PFT Study With Bronchodilator Nash Cuellar MD [address] [place] [address] Status Reason Specialty Diagnoses / Procedures Re ferred By Contact Referred To Contact Manual Review Required - [facility] Diagnoses Renal cyst Procedures US RETROPERITONEAL LIMITED Jack Rosa MD [address] [facility] [place] [address] Status Reason Specialty Diagnoses / Procedures Referre d By Contact Referred To Contact Closed Radiology Diagnoses Cervical radiculopathy Procedures MRI CERVICAL SPINE WO CONTRAST Sajan Ramos MD [address] [place] [address] Status Reason Specialty Diagnoses / Procedures Referre d By Contact Referred To Contact Open Radiology Diagnoses Oropharyngeal dysphagia Procedures US HEAD NECK SOFT TISSUE THYROID Edgar Dennis, EMILY [address] [address] Specialty Diagnoses / Procedures Referred By Contac t Referred To Contact Radiology Diagnoses Type 2 diabetes mellitus without complication, unspecified whether mcfp insulin use (HCC) Delayed gastric emptying Procedures NM gastric emptying solid Bernadine Alvarado NP [address] [place] [address] Referral ID Status Reason Start Date Expiration Date V isits Requested Visits Authorized [id number] Pending Review 06/23/2023 12/20/2023 3 3 Specialty Diagnoses / Procedures Referred By Contac t Referred To Contact Pulmonary Disease / Pulmonology Diagnoses BENTLEY (obstructive sleep apnea) Primary hypertension Morbid obesity, unspecified obesity type (HCC) Procedures [facility] OFFICE/OUTPATIENT NEW HIGH MDM 60-74 MINUTES Bernadine Alvarado NP [address] [place] [address] [facility] [address] [place] [address] Referral ID Status Reason Start Date Expiration Date Visits Requested Visits Authorized [id number] Pending Review Specialty Services Required 02/28/2023 02/28/2024 1 1 Specialty Diagnoses / Procedures Referred By Contac t Referred To Contact Cardiology Diagnoses Primary hypertension Type 2 diabetes mellitus without complication, unspecified whether predatory animal exterminator insulin use (HCC) Morbid obesity, unspecified obesity type (HCC) Procedures [facility] OFFICE/OUTPATIENT NEW HIGH MDM 60-74 MINUTES Bernadine Alvarado NP [address] [place] [address] [address] [place] [address] Referral ID Status Reason Start Date Expiration Date V isits Requested Visits Authorized [id number] Closed Specialty Services Required 02/28/2023 02/28/2024 1 1 Referral ID Status Reason Start Date Expiration Date V isits Requested Visits Authorized [id number] Authorized 06/23/2023 12/20/2023 3 3 Assessments Diagnosis Type 2 diabetes, uncontrolled, with neuropathy (HCC) Type II or unspecified type diabetes mellitus with neurological manifestations, uncontrolled Shortness of breath Diagnosis History of hypercalcemia Personal history of other endocrine, metabolic, and immunity disorders Hyperparathyroidism due to renal insufficiency (HCC) Secondary hyperparathyroidism (of renal origin) Parathyroid adenoma Benign neoplasm of parathyroid gland Diagnosis Oropharyngeal dysphagia Dysphagia, oropharyngeal phase Diagnosis Shortness of breath Diagnosis Renal cyst Unspecified congenital cystic kidney disease Diagnosis Cervical radiculopathy Brachial neuritis or radiculitis nos Diagnosis Neck pain Cervicalgia Midline low back pain without sciatica, unspecified chronicity Diagnosis Oropharyngeal dysphagia Dysphagia, oropharyngeal phase History of Present Illness * Junito Walter SLP - 02/25/2020 1:00 PM EDT [facility] Speech Language Pathology Shawnee Mohr 1955 02/25/2020 We saw your patient today for a Modified Barium Swallow. It was concluded that your patient could benefit from outpatient swallowing therapy to: improve swallow function tolerate the least restrictive diet strengthen the muscles for swallowing learn strategies for a safer swallow Neuromuscular electrical stimulation (e-stim) is also recommended. Please include e-stim for dysphagia in your order, if in agreement. If you are in agreement with swallowing therapy, please fax an order for speech therapy with a treatment diagnosis (such as dysphagia), signed, and dated to either of our locations: [id number] [place] [id number] Thank you for your referral. Signature: documented in this encounter* Vanna Mccollum SLP - 03/04/2020 9:00 AM EDT [facility] Outpatient Speech Language Pathology Adult Daily Note Shawnee Mohr : 1955 Date: 03/04/2020 Visit Information: [employer] Medicare Total # of Visits Approved: (Medical necessity.) Total # of Visits to Date: 1 No Show: 0 Canceled Appointment: 0 Plan of care signed (Y/N): Faxed Certification Period: 02/25/2020-03/25/2020 Interventions used this date: Dysphagia Treatment and Instruction in Compensatory Strategies Subjective: Buttonhole Marker Goals: 1. Patient will tolerate least restrictive diet with no overt s/s of difficulty or aspiration. Short Term Goals: Pt to be seen 1-2x/week for 4-6 wks 1. Pt will improve hyolaryngeal elevation by performing hyolaryngeal exercises (Nader, Shaker, Falsetto, etc) with 90% accuracy in order to strengthen and establish a more effective swallow. Patient completed falsetto x3. CTAR exercises completed 10x. Patient tried both tennis ball and rolled towel and preferred the rolled towel. 2. Pt will complete pharyngeal strengthening exercises (such as the Lisa, Effortful swallow, etc)with 90% accuracy in order to strengthen and establish and more effective swallow. Effortful swallow 5 x, Lisa X5, lingual press 1x, posterior tongue press: 10x. 3. Pt will demonstrate swallow strategies for safe and efficient swallow of diet consistencies independently. Discussed diet consistency with patient: minced moist and safe swallow strategies: small bites/sips, multiple swallows to clear residue, Sit up for all meals, and remain upright after meals. 4. Pt will tolerate the recommended diet level with no s/s of aspiration. *E-stim was recommended by evaluating therapist at [facility]. Will contact doctors's office. Patient reports having difficulty with larger pieces and eating softer foods. Behavior: Alert and Cooperative Objective/Assessment: Patient progressing towards goals: Pain Assessment: Patient demonstrated no s/s of pain. MODIFIED [place]ILGORE FALL RISK ASSESSMENT: History of Falling (has patient fallen in the past 30 days?): No (0 points) Secondary Diagnosis (is there more than 1 medical diagnosis in patient s medical history?): Yes (15 points) Ambulatory Aid: No device is used (0 points) Gait: Normal/bedrest/wheelchair (0 points) Mental Status: Oriented to own ability (0 points) Total points = 15 Fall Risk Level: low 0 24: Low Risk - implement low risk fall prevention interventions 25 44: Medium risk 45 and higher: High Risk Plan: Continue with current goals Patient/Caregiver Education: Patient/Caregiver educated on session. Patient/Caregiver stated verbal understanding of directions. Time in:0900 Time out:1000 Minutes seen:60 Signature: documented in this encounter* Vanna Mccollum SLP - 03/06/2020 8:00 AM EDT [facility] Outpatient Speech Language Pathology Adult Daily Note Shawnee Mohr : 1955 Date: 03/06/2020 Visit Information: BOTANICAL TECHNICAL OFFICER Insurance Information: [facility] Medicare[facility] Medicare Total # of Visits Approved: (Medical necessity.) Total # of Visits to Date: 2 No Show: 0 Canceled Appointment: 0 Plan of care signed (Y/N): Faxed Certification Period: 02/25/2020-03/25/2020 Interventions used this date: Dysphagia Treatment and Instruction in Compensatory Strategies Subjective: Mcc Goals: 1. Patient will tolerate least restrictive diet with no overt s/s of difficulty or aspiration. Short Term Goals: Pt to be seen 1-2x/week for 4-6 wks 1. Pt will improve hyolaryngeal elevation by performing hyolaryngeal exercises (Nader, Shaker, Falsetto, etc) with 90% accuracy in order to strengthen and establish a more effective swallow. Patient completed falsetto x3. CTAR exercises completed 10x. [place] introduced and patient completed:10X.Mandibular protrusion 10x. Falsetto:10x. 2. Pt will complete pharyngeal strengthening exercises (such as the Lisa, Effortful swallow, etc)with 90% accuracy in order to strengthen and establish and more effective swallow. Effortful swallow 5 x, lingual press 10x, posterior tongue press: 10x. 3. Pt will demonstrate swallow strategies for safe and efficient swallow of diet consistencies independently. Patient reports consuming minced moist diet and using safe swallow strategies: small bites/sips, multiple swallows to clear residue, Sit up for all meals, and remain upright after meals. 4. Pt will tolerate the recommended diet level with no s/s of aspiration. *E-stim was recommended by evaluating therapist at [facility]. Doctors's office was closed on Tuesday. Secretaries will continue to call for order for E-stim and dysphagia diagnosis. Behavior: Alert and Cooperative Objective/Assessment: Patient progressing towards goals: Pain Assessment: Patient demonstrated no s/s of pain. MODIFIED KILGORE FALL RISK ASSESSMENT: History of Falling (has patient fallen in the past 30 days?): No (0 points) Secondary Diagnosis (is there more than 1 medical diagnosis in patient s medical history?): Yes (15 points) Ambulatory Aid: No device is used (0 points) Gait: Normal/bedrest/wheelchair (0 points) Mental Status: Oriented to own ability (0 points) Total points = 15 Fall Risk Level: low 0 24: Low Risk - implement low risk fall prevention interventions 25 44: Medium risk 45 and higher: High Risk Plan: Continue with current goals Patient/Caregiver Education: Patient/Caregiver educated on session. Patient/Caregiver stated verbal understanding of directions. Time in:0800 Time out:0900 Minutes seen:60 documented in this encounter* Vanna Mccollum SLP - 03/20/2020 9:00 AM EDT [facility] Outpatient Speech Language Pathology Adult Daily Note Shawnee Mohr : 1955 Date: 03/20/2020 Visit Information: BOTANICAL TECHNICAL OFFICER Insurance Information: [employer] Medicare.[employer] Medicare Total # of Visits Approved: (Medical necessity.) Total # of Visits to Date: 3 No Show: 0 Canceled Appointment: 2 Plan of care signed (Y/N): Faxed Certification Period: 02/25/2020-03/25/2020 Interventions used this date: Dysphagia Treatment and Instruction in Compensatory Strategies Subjective: Patient reports improved swallowing. Some difficulty with small pills. It is recommended that she take medication with applesauce. Mcc Goals: 1. Patient will tolerate least restrictive diet with no overt s/s of difficulty or aspiration. Short Term Goals: Pt to be seen 1-2x/week for 4-6 wks 1. Pt will improve hyolaryngeal elevation by performing hyolaryngeal exercises (Nader, Shaker, Falsetto, etc) with 90% accuracy in order to strengthen and establish a more effective swallow. Patient did not complete falsetto secondary to hoarse vocal quality: this exercise now on hold at this time. CTAR exercises completed 30x holding each for one second . [place] patient completed:10X. Mandibular protrusion 10x. 2. Pt will complete pharyngeal strengthening exercises (such as the Lisa, Effortful swallow, etc)with 90% accuracy in order to strengthen and establish and more effective swallow. Effortful swallow 5 x, lingual press 10x, posterior tongue press: 10x. Lisa: 10 x. 3. Pt will demonstrate swallow strategies for safe and efficient swallow of diet consistencies independently. Patient reports consuming bite sized diet and using safe swallow strategies: small bites/sips, multiple swallows to clear residue, Sit up for all meals, and remain upright after meals. 4. Pt will tolerate the recommended diet level with no s/s of aspiration. *E-stim was recommended by evaluating therapist at [facility]. Doctors's office contacted again this date regarding order for electrical stimulation and dysphagia. *Recommend that the Patient see an ENT for the increasing hoarseness and the continuous drainage. Patient also mentioned that she was to have surgery in 2018 for a deviated septum, which she did not have as she had a change in insurance. Behavior: Alert and Cooperative Objective/Assessment: Patient progressing towards goals: Pain Assessment: Patient demonstrated no s/s of pain. Time in:0900 Time out:1000 Minutes seen:60 documented in this encounter* Vanna Mccollum SLP - 03/18/2020 9:00 AM EDT Therapy Cancellation/No-show Note Date: 03/18/2020 Patient Name: Shawnee Mohr : 1955 Visit Information: BOTANICAL TECHNICAL OFFICER Insurance Information: [facility] Medicare. Total # of Visits Approved: (Medical necessity.) Total # of Visits to Date: 2 No Show: 0 Canceled Appointment: 2 For today's appointment patient: Cancelled Reason given by patient: No transportation Follow-up needed: Pt has future appointments scheduled, no follow up needed Comments: Signature: documented in this encounter* Vanna Mccollum SLP - 03/25/2020 10:00 AM EDT Therapy Cancellation/No-show Note Date: 03/25/2020 Patient Name: Shawnee Mohr : 1955 Visit Information: BOTANICAL TECHNICAL OFFICER Insurance Information: [facility] Medicare. Total # of Visits Approved: (Medical necessity) Total # of Visits to Date: 3 No Show: 0 Canceled Appointment: 3 For today's appointment patient: Cancelled Reason given by patient: Conflicting appointment Follow-up needed: Pt has future appointments scheduled, no follow up needed Comments: Signature: documented in this encounter* Vanna Mccollum SLP - 04/01/2020 10:00 AM EDT [facility] Outpatient Speech Language Pathology Adult Daily Note Shawnee Mele Onur : 1955 Date: 04/01/2020 Visit Information: BOTANICAL TECHNICAL OFFICER Insurance Information: [facility] Medicare.[employer] Medicare Total # of Visits Approved: (Medical necessity.) Total # of Visits to Date: 4 No Show: 0 Canceled Appointment: 3 Plan of care signed (Y/N): Faxed Certification Period: 02/25/2020-03/25/2020 Interventions used this date: Dysphagia Treatment and Instruction in Compensatory Strategies Subjective: Patient reports improved swallowing. Some difficulty with small pills. It is recommended that she take medication with applesauce. Buttonhole Marker Goals: 1. Patient will tolerate least restrictive diet with no overt s/s of difficulty or aspiration. Short Term Goals: Pt to be seen 1-2x/week for 4-6 wks 1. Pt will improve hyolaryngeal elevation by performing hyolaryngeal exercises (Nader, Shaker, Falsetto, etc) with 90% accuracy in order to strengthen and establish a more effective swallow. Patient did not complete falsetto secondary to hoarse vocal quality: this exercise now on hold at this time. CTAR exercises completed 30x holding each for one second and isometric: squeeze on a rolled up towel and hold for 60 seconds. [place] patient completed:10X. 2. Pt will complete pharyngeal strengthening exercises (such as the Lisa, Effortful swallow, etc)with 90% accuracy in order to strengthen and establish and more effective swallow. Lingual press 10x, posterior tongue press: 10x. Mandibular protrusion with lingual press:10X Effortful swallow 10x. Pt will demonstrate swallow strategies for safe and efficient swallow of diet consistencies independently. Patient reports hamburger and rice crackers appeared to get stuck. 4. Pt will tolerate the recommended diet level with no s/s of aspiration. Patient took sips of water in the session without overt s/s of aspiration. 5.Pt will tolerate 30 minutes of JEAN to suprahyoidal musculature to improve hyolaryngeal elevation,increase UES elongation, and laryngeal excursion to decrease pyriform sinus retention and decrease the risk of penetration and aspiration during oral intake at an intensity of 9-12. Patient tolerated 30 minutes of JEAN at an intensity level of 7. 6.Pt will improve hyolaryngeal elevation by performing hyolaryngeal exercises (Nader, Shaker, Lisa, Falsetto, etc) with 90% accuracy in combination with the BOTANICAL TECHNICAL OFFICER using JEAN to the suprahyoidal musculature to facilitate muscle reeducation and strength to establish a more effective swallow. Patient completed the [place] 10 x. Effortful swallow 10x. *Recommend that the Patient see an ENT for the increasing hoarseness and the continuous drainage. Patient has an appointment with Dr. Quintana 04/17/2020 Behavior: Alert and Cooperative Objective/Assessment: Patient progressing towards goals: Pain Assessment: Patient demonstrated no s/s of pain. Time in:1000 Time out:1100 Minutes seen:60 documented in this encounter* Lara Ghosh SLP - 04/08/2020 1:00 PM EDT Therapy Cancellation/No-show Note Date: 04/08/2020 Patient Name: Shawnee Mohr : 1955 Visit Information: BOTANICAL TECHNICAL OFFICER Insurance Information: [employer] Medicare. Total # of Visits Approved: (medical necessity.) Total # of Visits to Date: 6 No Show: 0 Canceled Appointment: 4 For today's appointment patient: Cancelled Reason given by patient: No transportation Follow-up needed: Pt has future appointments scheduled, no follow up needed Comments: Signature: documented in this encounter* Vanna Mccollum SLP - 04/10/2020 9:00 AM EDT Therapy Cancellation/No-show Note Date: 04/10/2020 Patient Name: Shawnee Mohr : 1955 Visit Information: BOTANICAL TECHNICAL OFFICER Insurance Information: [facility] Medicare. Total # of Visits Approved: (Medical necessity.) Total # of Visits to Date: 6 No Show: 0 Canceled Appointment: 5 For today's appointment patient: Cancelled Reason given by patient: Patient ill Follow-up needed: Pt has future appointments scheduled, no follow up needed Comments: Signature: documented in this encounter* Vanna Mccollum SLP - 04/15/2020 1:00 PM EDT [facility] Outpatient Speech Language Pathology Adult Daily Note Shawnee Wileyluis : 1955 Date: 04/15/2020 Visit Information: BOTANICAL TECHNICAL OFFICER Insurance Information: [employer] Medicare.[employer] Medicare Total # of Visits to Date: 7 No Show: 0 Canceled Appointment: 4 Note cancel appointment revised. Plan of care signed (Y/N): Faxed Certification Period: 02/25/2020-03/25/2020 Interventions used this date: Dysphagia Treatment and Instruction in Compensatory Strategies Subjective: Patient reports improved swallowing. Some difficulty with small pills. It is recommended that she take medication with applesauce. Mcc Goals: 1. Patient will tolerate least restrictive diet with no overt s/s of difficulty or aspiration. Short Term Goals: Pt to be seen 1-2x/week for 4-6 wks 1. Pt will improve hyolaryngeal elevation by performing hyolaryngeal exercises (Nader, Shaker, Falsetto, etc) with 90% accuracy in order to strengthen and establish a more effective swallow. Patient did not complete falsetto secondary to hoarse vocal quality: this exercise now on hold at this time. [place]: patient completed:10X. 2. Pt will complete pharyngeal strengthening exercises (such as the Lisa, Effortful swallow, etc)with 90% accuracy in order to strengthen and establish and more effective swallow. Lingual press 10x: posterior tongue press: 10x.Efortful swallow: 15. Mandibular protrusion with lingual press:15X Effortful swallow 10x. Pt will demonstrate swallow strategies for safe and efficient swallow of diet consistencies independently. Patient reports having problems with pizza and pasta getting gimmed-up in her throat. 4. Pt will tolerate the recommended diet level with no s/s of aspiration. Patient reported difficulty swallowing a wayne cracker, stating that it was getting stuck in her throat. She used a liquid wash to clear. No difficulty with liquids. 5.Pt will tolerate 30 minutes of JEAN to suprahyoidal musculature to improve hyolaryngeal elevation,increase UES elongation, and laryngeal excursion to decrease pyriform sinus retention and decrease the risk of penetration and aspiration during oral intake at an intensity of 9-12. Patient tolerated 30 minutes of JEAN at an intensity level of 10. 6.Pt will improve hyolaryngeal elevation by performing hyolaryngeal exercises (Nader, Shaker, Lisa, Falsetto, etc) with 90% accuracy in combination with the BOTANICAL TECHNICAL OFFICER using JEAN to the suprahyoidal musculature to facilitate muscle reeducation and strength to establish a more effective swallow. Patient completed the [place] 10 x. Effortful swallow x15. *Recommend that the Patient see an ENT for the increasing hoarseness and the continuous drainage. Patient has an appointment with Dr. Quintana 04/17/2020 Behavior: Alert and Cooperative Objective/Assessment: Patient progressing towards goals: Pain Assessment: Patient demonstrated no s/s of pain. Time in:1300 Time out:1400 Minutes seen:60 documented in this encounter* Vanna Mccollum SLP - 04/24/2020 11:00 AM [facility]T [facility] [facility] Outpatient Speech Language Pathology Adult Daily Note Shawnee Mohr : 1955 Date: 04/24/2020 Visit Information: BOTANICAL TECHNICAL OFFICER Insurance Information: [facility] Medicare.[employer] Medicare Total # of Visits Approved: (Medical necessity.) Total # of Visits to Date: 9 No Show: 0 Canceled Appointment: 4 Note cancel appointment revised. Plan of care signed (Y/N): Faxed Certification Period: 03/26/2020-04/25/2020 Interventions used this date: Dysphagia Treatment and Instruction in Compensatory Strategies Subjective: Patient reports improved swallowing. Some difficulty with small pills. It is recommended that she take medication with applesauce. Buttonhole Marker Goals: 1. Patient will tolerate least restrictive diet with no overt s/s of difficulty or aspiration. Short Term Goals: Pt to be seen 1-2x/week for 4-6 wks 1. Pt will improve hyolaryngeal elevation by performing hyolaryngeal exercises (Nader, Shaker, Falsetto, etc) with 90% accuracy in order to strengthen and establish a more effective swallow. Patient did not complete falsetto secondary to hoarse vocal quality: this exercise now on hold at this time. [place]: patient completed:10X. 2. Pt will complete pharyngeal strengthening exercises (such as the Lisa, Effortful swallow, etc)with 90% accuracy in order to strengthen and establish and more effective swallow. Lingual press 10x: posterior tongue press: 15x.Efortful swallow: 10. Lingual A-P- movement 10x. Mandibular protrusion with lingual press:15X. CTAR 30x holding one second. 3.Pt will demonstrate swallow strategies for safe and efficient swallow of diet consistencies independently. Patient states that she uses a liquid wash and tucks her chin. 4. Pt will tolerate the recommended diet level with no s/s of aspiration. Patient reported difficulty, with one pill sticking, which she cleared with a liquid wash. No difficulty with liquids. 5.Pt will tolerate 30 minutes of JEAN to suprahyoidal musculature to improve hyolaryngeal elevation,increase UES elongation, and laryngeal excursion to decrease pyriform sinus retention and decrease the risk of penetration and aspiration during oral intake at an intensity of 9-12. Patient tolerated 30 minutes of JEAN at an intensity level of 11, while performing [place] 10x 6.Pt will improve hyolaryngeal elevation by performing hyolaryngeal exercises (Nader, Shaker, Lisa, Falsetto, etc) with 90% accuracy in combination with the BOTANICAL TECHNICAL OFFICER using JEAN to the suprahyoidal musculature to facilitate muscle reeducation and strength to establish a more effective swallow. Patient completed the [place] 10 x. Lisa 10x. *Recommend that the Patient see an ENT for the increasing hoarseness and the continuous drainage. Patient will make an appointment with Dr. Quintana as the 04/17/2020, was cancelled by the patient secondary to a family emergency. Patient encouraged to call and re-s hdule. Behavior: Alert and Cooperative Improved vocal quality this date. Objective/Assessment: Patient progressing towards goals: Pain Assessment: Patient demonstrated no s/s of pain. Time in: Time out:1000 Minutes seen:60 documented in this encounter* Vanna Mccollum SLP - 04/29/2020 4:00 PM EDT [facility] Outpatient Speech Language Pathology Adult Daily Note Shawnee Mohr : 1955 Date: 04/29/2020 Visit Information: BOTANICAL TECHNICAL OFFICER Insurance Information: [facility] Medicare.[employer] Medicare Total # of Visits Approved: (medical necessity.) Total # of Visits to Date: 10 No Show: 0 Canceled Appointment: 4 Plan of care signed (Y/N): Faxed Certification Period: 04/26/2020-05/26/2020 Interventions used this date: Dysphagia Treatment and Instruction in Compensatory Strategies Subjective: Patient reports improved swallowing. Some difficulty with small pills. It is recommended that she take medication with applesauce. Mcc Goals: 1. Patient will tolerate least restrictive diet with no overt s/s of difficulty or aspiration. Short Term Goals: Pt to be seen 1-2x/week for 4-6 wks 1. Pt will improve hyolaryngeal elevation by performing hyolaryngeal exercises (Nader, Shaker, Falsetto, etc) with 90% accuracy in order to strengthen and establish a more effective swallow. Patient did not complete falsetto secondary to hoarse vocal quality: this exercise now on hold at this time. [place]: patient completed:6X. 2. Pt will complete pharyngeal strengthening exercises (such as the Lisa, Effortful swallow, etc)with 90% accuracy in order to strengthen and establish and more effective swallow. Lingual press 10x: posterior tongue press: 10x.Mandibular protrusion with lingual press:15X. CTAR 30x holding one second. 3.Pt will demonstrate swallow strategies for safe and efficient swallow of diet consistencies independently. Patient states that she uses a liquid wash and tucks her chin. 4. Pt will tolerate the recommended diet level with no s/s of aspiration. Patient reported difficulty, with hill pieces in an omlette. No difficulty with liquids. 5.Pt will tolerate 30 minutes of JEAN to suprahyoidal musculature to improve hyolaryngeal elevation,increase UES elongation, and laryngeal excursion to decrease pyriform sinus retention and decrease the risk of penetration and aspiration during oral intake at an intensity of 9-12. Patient tolerated 30 minutes of JEAN at an intensity level of 12, while performing [place] 10x and CTAR. 6.Pt will improve hyolaryngeal elevation by performing hyolaryngeal exercises (Nader, Shaker, Lisa, Falsetto, etc) with 90% accuracy in combination with the BOTANICAL TECHNICAL OFFICER using JEAN to the suprahyoidal musculature to facilitate muscle reeducation and strength to establish a more effective swallow. Patient completed the [place] 10 x. *Recommend that the Patient see an ENT for the increasing hoarseness and the continuous drainage. Patient will make an appointment with Dr. Quintana as the 04/17/2020, was cancelled by the patient secondary to a family emergency. Patient encouraged to call and re-schedule Behavior: Alert and Cooperative Continued goodI vocal quality this date. Objective/Assessment: Patient progressing towards goals: Pain Assessment: Patient demonstrated no s/s of pain. Time in:1600 Time out:1700 Minutes seen:60 documented in this encounter* Vanna Mccollum SLP - 05/01/2020 11:00 AM EDT [facility] Outpatient Speech Language Pathology Adult Daily Note Shawnee Mohr : 1955 Date: 05/01/2020 Visit Information: BOTANICAL TECHNICAL OFFICER Insurance Information: [facility] Medicare.[employer] Medicare Total # of Visits Approved: (Medical necessity.) Total # of Visits to Date: 11 No Show: 0 Canceled Appointment: 4 Plan of care signed (Y/N): Faxed Certification Period: 04/26/2020-05/26/2020 Interventions used this date: Dysphagia Treatment and Instruction in Compensatory Strategies Subjective: Patient reports vocal quality is much better and that she has an occasional throat clear. Mcc Goals: 1. Patient will tolerate least restrictive diet with no overt s/s of difficulty or aspiration. Short Term Goals: Pt to be seen 1-2x/week for 4-6 wks 1. Pt will improve hyolaryngeal elevation by performing hyolaryngeal exercises (Nader, Shaker, Falsetto, etc) with 90% accuracy in order to strengthen and establish a more effective swallow. Patient attempted falsetto but c/o her throat was tickling. This exercise continues to be on hold at this time. [place]: patient completed:10X. 2. Pt will complete pharyngeal strengthening exercises (such as the Lisa, Effortful swallow, etc)with 90% accuracy in order to strengthen and establish and more effective swallow. Lingual press 10x: posterior tongue press: 10x.Mandibular protrusion with lingual press:10X. CTAR 30x holding one second. 3.Pt will demonstrate swallow strategies for safe and efficient swallow She reports taking small bites and using a liquid wash when needed. Patient reminded regarding chintuck. 4. Pt will tolerate the recommended diet level with no s/s of aspiration. Patient reported no difficulty with solids or liquids yesterday 5.Pt will tolerate 30 minutes of JEAN to suprahyoidal musculature to improve hyolaryngeal elevation,increase UES elongation, and laryngeal excursion to decrease pyriform sinus retention and decrease the risk of penetration and aspiration during oral intake at an intensity of 9-12. Patient tolerated 30 minutes of JEAN at an intensity level of 10, while performing [place] 10x and CTAR. 6.Pt will improve hyolaryngeal elevation by performing hyolaryngeal exercises (Nader, Shaker, Lisa, Falsetto, etc) with 90% accuracy in combination with the BOTANICAL TECHNICAL OFFICER using JEAN to the suprahyoidal musculature to facilitate muscle reeducation and strength to establish a more effective swallow. Patient completed the [place] 10 x. *Recommend that the Patient see an ENT for the increasing hoarseness and the continuous drainage. Patient will make an appointment with Dr. Quintana as the 04/17/2020, was cancelled by the patient secondary to a family emergency. Patient encouraged to call and re-schedule Behavior: Alert and Cooperative Continued goodI vocal quality this date. Objective/Assessment: Patient progressing towards goals: Pain Assessment: Patient demonstrated no s/s of pain. Time in:1100 Time out:1200 Minutes seen:60 documented in this encounter* Vanna Mccollum SLP - 05/06/2020 9:00 AM EDT [][facility] [][facility] [place] [address] [address] [address] [place] [address] [facility] Outpatient Speech Language Pathology Adult Discharge Note NAME:Shawnee Mohr : 1955 (65 y.o.) Patient Diagnosis: oropharyngeal dysphagia:R 13.12 Referring Physician:Dr. Sajan Ramos Date of Evaluation:02/25/2020 Treatment Diagnosis: Oropharyngeal dysphagia ICD10 tx dx code:R13.12. Today's Date: 05/06/2020 Treatment Dates: From: to 05/06/2020 TREATMENT ADMINISTERED: Dysphagia Treatment and Estim PROGRESS TO DATE: 1. Pt will improve hyolaryngeal elevation by performing hyolaryngeal exercises (Nader, Shaker, Falsetto, etc) with 90% accuracy in order to strengthen and establish a more effective swallow. This exercise (Falsetto)continues to be on hold at this time due to hoarseness. The patient did complete the [place]. Partially achieved. 2. Pt will complete pharyngeal strengthening exercises (such as the Lisa, Effortful swallow, etc)with 90% accuracy in order to strengthen and establish and more effective swallow. Goal met. 3.Pt will demonstrate swallow strategies for safe and efficient swallow Patient is following all compensatory strategies: small bites, using a liquid wash, and chin tuck. Goal met. 4. Pt will tolerate the recommended diet level with no s/s of aspiration. The patient recognizes foods that cause coughing. She follows her safe swallow guidelines. Goal met. 5.Pt will tolerate 30 minutes of JEAN to suprahyoidal musculature to improve hyolaryngeal elevation,increase UES elongation, and laryngeal excursion to decrease pyriform sinus retention and decrease the risk of penetration and aspiration during oral intake at an intensity of 9-12. Patient tolerated 30 minutes of JEAN at an intensity level on average of 11. Goal partially achieved. 6.Pt will improve hyolaryngeal elevation by performing hyolaryngeal exercises (Nader, Shaker, Lisa, Falsetto, etc) with 90% accuracy in combination with the BOTANICAL TECHNICAL OFFICER using JEAN to the suprahyoidal musculature to facilitate muscle reeducation and strength to establish a more effective swallow. Goal met. ACHIEVEMENT OF GOALS: Achieved goals:2, 3, 4, 6. Partialy achieved: 1, 5. REASON FOR DISCHARGE: Speech therapy is no longer deemed necessary at this time DISCHARGE EDUCATION/RECOMMENDATIONS: Continue home exercise program as directed Discharge NOMS: Discharged Level 6: CI Initial:5:CJ Electronically signed by: Vanna Mccollum M.A., [facility]-BOTANICAL TECHNICAL OFFICER Date: 05/06/2020, 4:21 PM * Vanna Mccollum SLP - 05/06/2020 9:00 AM EDT [facility] Adult Daily Note Shawnee Mohr : 1955 Date: 05/06/2020 Visit Information: BOTANICAL TECHNICAL OFFICER Insurance Information: [facility] Medicare.[employer] Medicare Total # of Visits Approved: (Medical necessity) Total # of Visits to Date: 12 No Show: 0 Canceled Appointment: 4 Plan of care signed (Y/N): Faxed Certification Period: 04/26/2020-05/26/2020 Interventions used this date: Dysphagia Treatment and Instruction in Compensatory Strategies Subjective: Patient reports vocal quality is much better and that she has an occasional throat clear. Mcc Goals: 1. Patient will tolerate least restrictive diet with no overt s/s of difficulty or aspiration. Short Term Goals: Pt to be seen 1-2x/week for 4-6 wks 1. Pt will improve hyolaryngeal elevation by performing hyolaryngeal exercises (Nader, Shaker, Falsetto, etc) with 90% accuracy in order to strengthen and establish a more effective swallow. This exercise (Falsetto)continues to be on hold at this time due to hoarseness. [place]: patientcompleted:12X. 2. Pt will complete pharyngeal strengthening exercises (such as the Lisa, Effortful swallow, etc)with 90% accuracy in order to strengthen and establish and more effective swallow. CTAR 30x holding each one for one second. Lisa:2x. Patient encouraged to do the effortful swallow:5x. 3.Pt will demonstrate swallow strategies for safe and efficient swallow She reports taking small bites and using a liquid wash as needed. Patient reminded to use a chin tuck. This may also decrease the amount of air and burping that she is experiencing. 4. Pt will tolerate the recommended diet level with no s/s of aspiration. Patient reported difficulties pierogies over the weekend. The patient consumed a Brenda Doone and proceeded to cough on the small crumbly pieces. She used a liquid wash to clear the vallecular spaces and pyriform sinuses 5.Pt will tolerate 30 minutes of JEAN to suprahyoidal musculature to improve hyolaryngeal elevation,increase UES elongation, and laryngeal excursion to decrease pyriform sinus retention and decrease the risk of penetration and aspiration during oral intake at an intensity of 9-12. Patient tolerated 30 minutes of JEAN at an intensity level of 11, while performing [place] 10x, and effortful swallow. 6.Pt will improve hyolaryngeal elevation by performing hyolaryngeal exercises (Nader, Shaker, Lisa, Falsetto, etc) with 90% accuracy in combination with the BOTANICAL TECHNICAL OFFICER using JEAN to the suprahyoidal musculature to facilitate muscle reeducation and strength to establish a more effective swallow. Patient completed the [place] 12 x. She also completed effortful swallow 5x. *Recommend that the Patient see an ENT for the increasing hoarseness and the continuous drainage. Patient will make an appointment with Dr. Quintana as the 04/17/2020, was cancelled by the patient secondary to a family emergency. Patient stated that she will make an appointment. Behavior: Alert and Cooperative Patient's vocal quality is slightly hoarse this date. Objective/Assessment: Discharge this date. Pain Assessment: Patient demonstrated no s/s of pain. Time in:0900 Time out:1000 Minutes seen:60 documented in this encounter* Vanna Mccollum SLP - 03/11/2020 9:00 AM EDT Speech Therapy Cancellation/No-show Note Patient Name: Shawnee Shabazz Onur : 1955 Date: 03/11/2020 Visit Information: BOTANICAL TECHNICAL OFFICER Insurance Information: [employer] [facility] Medicare. Total # of Visits Approved: (medical necessity.) Total # of Visits to Date: 2 No Show: 0 Canceled Appointment: 1 For today's appointment patient: [x] Cancelled [] Rescheduled appointment [] No-show Reason given by patient: [x] Patient ill [] Conflicting appointment [] No transportation [] Conflict with work [] No reason given [] Other: Comments: Electronically signed by: Vanna Mccollum CCC-BOTANICAL TECHNICAL OFFICER, Date: 03/11/2020, Time: 9:06 AM documented in this encounter* Vanna Mccollum SLP - 04/22/2020 9:00 AM EDT [facility] Outpatient Speech Language Pathology Adult Daily Note Shawnee Mohr : 1955 Date: 04/22/2020 Visit Information: BOTANICAL TECHNICAL OFFICER Insurance Information: [facility] Medicare.[employer] Medicare Total # of Visits Approved: (Medical necessity.) Total # of Visits to Date: 8 No Show: 0 Canceled Appointment: 4 Note cancel appointment revised. Plan of care signed (Y/N): Faxed Certification Period: 03/26/2020-04/25/2020 Interventions used this date: Dysphagia Treatment and Instruction in Compensatory Strategies Subjective: Patient reports improved swallowing. Some difficulty with small pills. It is recommended that she take medication with applesauce. Mcc Goals: 1. Patient will tolerate least restrictive diet with no overt s/s of difficulty or aspiration. Short Term Goals: Pt to be seen 1-2x/week for 4-6 wks 1. Pt will improve hyolaryngeal elevation by performing hyolaryngeal exercises (Nader, Shaker, Falsetto, etc) with 90% accuracy in order to strengthen and establish a more effective swallow. Patient did not complete falsetto secondary to hoarse vocal quality: this exercise now on hold at this time. [place]: patient completed:10X. 2. Pt will complete pharyngeal strengthening exercises (such as the Lisa, Effortful swallow, etc)with 90% accuracy in order to strengthen and establish and more effective swallow. Lingual press 10x: posterior tongue press: 10x.Efortful swallow: 10. Mandibular protrusion with lingual press:15X Effortful swallow 10x. Pt will demonstrate swallow strategies for safe and efficient swallow of diet consistencies independently. Patient reports having problems with macaroni noodles and lettuce : gimmed-up in her throat. 4. Pt will tolerate the recommended diet level with no s/s of aspiration. Patient reported difficulty swallowing pasta items. No difficulty with liquids. 5.Pt will tolerate 30 minutes of JEAN to suprahyoidal musculature to improve hyolaryngeal elevation,increase UES elongation, and laryngeal excursion to decrease pyriform sinus retention and decrease the risk of penetration and aspiration during oral intake at an intensity of 9-12. Patient tolerated 30 minutes of JEAN at an intensity level of 10. 6.Pt will improve hyolaryngeal elevation by performing hyolaryngeal exercises (Nader, Shaker, Lisa, Falsetto, etc) with 90% accuracy in combination with the BOTANICAL TECHNICAL OFFICER using JEAN to the suprahyoidal musculature to facilitate muscle reeducation and strength to establish a more effective swallow. Patient completed the [place] 10 x. Effortful swallow x10. *Recommend that the Patient see an ENT for the increasing hoarseness and the continuous drainage. Patient had an appointment with Dr. Quintana 04/17/2020, which the patient had to cancel secondary to a family emergency. Behavior: Alert and Cooperative Objective/Assessment: Patient progressing towards goals: Pain Assessment: Patient demonstrated no s/s of pain. Time in:0900 Time out:1000 Minutes seen:60 documented in this encounter* Vanna Mccollum SLP - 04/03/2020 1:00 PM EDT [facility] Outpatient Speech Language Pathology Adult Daily Note Shawnee Shabazz Onur : 1955 Date: 04/03/2020 Visit Information: BOTANICAL TECHNICAL OFFICER Insurance Information: [facility] Medicare.[employer] Medicare Total # of Visits Approved: (medical necessity.) Total # of Visits to Date: 5 No Show: 0 Canceled Appointment: 3 Plan of care signed (Y/N): Faxed Certification Period: 02/25/2020-03/25/2020 Interventions used this date: Dysphagia Treatment and Instruction in Compensatory Strategies Subjective: Patient reports improved swallowing. Some difficulty with small pills. It is recommended that she take medication with applesauce. Buttonhole Marker Goals: 1. Patient will tolerate least restrictive diet with no overt s/s of difficulty or aspiration. Short Term Goals: Pt to be seen 1-2x/week for 4-6 wks 1. Pt will improve hyolaryngeal elevation by performing hyolaryngeal exercises (Nader, Shaker, Falsetto, etc) with 90% accuracy in order to strengthen and establish a more effective swallow. Patient did not complete falsetto secondary to hoarse vocal quality: this exercise now on hold at this time. CTAR exercises completed 30x holding each for one second . [place]: patient completed:10X. 2. Pt will complete pharyngeal strengthening exercises (such as the Lisa, Effortful swallow, etc)with 90% accuracy in order to strengthen and establish and more effective swallow. Lingual press 10x: posterior tongue press: 10x. Mandibular protrusion with lingual press:10X Effortful swallow 10x. Pt will demonstrate swallow strategies for safe and efficient swallow of diet consistencies independently. Patient reports eating Rice Krispies without it getting stuck. 4. Pt will tolerate the recommended diet level with no s/s of aspiration. Not addressed. 5.Pt will tolerate 30 minutes of JEAN to suprahyoidal musculature to improve hyolaryngeal elevation,increase UES elongation, and laryngeal excursion to decrease pyriform sinus retention and decrease the risk of penetration and aspiration during oral intake at an intensity of 9-12. Patient tolerated 30 minutes of JEAN at an intensity level of 8. 6.Pt will improve hyolaryngeal elevation by performing hyolaryngeal exercises (Nader, Shaker, Lisa, Falsetto, etc) with 90% accuracy in combination with the BOTANICAL TECHNICAL OFFICER using JEAN to the suprahyoidal musculature to facilitate muscle reeducation and strength to establish a more effective swallow. Patient completed the [place] 10 x. Effortful swallow 9x. *Recommend that the Patient see an ENT for the increasing hoarseness and the continuous drainage. Patient has an appointment with Dr. Quintana 04/17/2020 Behavior: Alert and Cooperative Objective/Assessment: Patient progressing towards goals: Pain Assessment: Patient demonstrated no s/s of pain. Time in:1000 Time out:1100 Minutes seen:60 documented in this encounter* Vanna Mccollum SLP - 03/27/2020 9:00 AM EDT [facility] Outpatient Speech Language Pathology Adult Daily Note Shawnee Mohr : 1955 Date: 03/27/2020 Visit Information: BOTANICAL TECHNICAL OFFICER Insurance Information: [facility] [employer] Medicare.[employer] Medicare Total # of Visits Approved: (Medically necessary) Total # of Visits to Date: 4 No Show: 0 Canceled Appointment: 3 Plan of care signed (Y/N): Faxed Certification Period: 02/25/2020-03/25/2020 Interventions used this date: Dysphagia Treatment and Instruction in Compensatory Strategies Subjective: Patient reports improved swallowing. Some difficulty with small pills. It is recommended that she take medication with applesauce. Buttonhole Marker Goals: 1. Patient will tolerate least restrictive diet with no overt s/s of difficulty or aspiration. Short Term Goals: Pt to be seen 1-2x/week for 4-6 wks 1. Pt will improve hyolaryngeal elevation by performing hyolaryngeal exercises (Nader, Shaker, Falsetto, etc) with 90% accuracy in order to strengthen and establish a more effective swallow. Patient did not complete falsetto secondary to hoarse vocal quality: this exercise now on hold at this time. CTAR exercises completed 30x holding each for one second and isometric: squeeze on a rolled up towel and hold for 60 seconds. . [place] patient completed:10X. 2. Pt will complete pharyngeal strengthening exercises (such as the Lisa, Effortful swallow, etc)with 90% accuracy in order to strengthen and establish and more effective swallow. Lingual press 10x, posterior tongue press: 10x. Mandibular protrusion with lingual press:10X 3. Pt will demonstrate swallow strategies for safe and efficient swallow of diet consistencies independently. Patient reports eating drinking without difficulty. Patient reports taking smaller bites/sips, choose foods that take less effort, and puts medication in applesauce 4. Pt will tolerate the recommended diet level with no s/s of aspiration. *E-stim was recommended by evaluating therapist at [facility] [place] contacted again this date, spoke with Agnieszka regarding order for electrical stimulation and dysphagia. Requested if the doctor is agreable, it be faxed to . *Recommend that the Patient see an ENT for the increasing hoarseness and the continuous drainage. Patient has an appointment with Dr. Quintana 04/17/2020 Behavior: Alert and Cooperative Objective/Assessment: Patient progressing towards goals: Pain Assessment: Patient demonstrated no s/s of pain. Time in:0900 Time out:1000 Minutes seen:60 documented in this encounter Discharge Instructions * Attachments The following attachments cannot be sent through Care Everywhere. * Cervical: Exercises (Fijian) documented in this encounter Additional Source Comments INFORMATION SOURCE (unrecogn ized section and content) DATE CREATED AUTHOR AUTHOR'S ORGANIZ ATION 02/15/2020 [facility] DATE CREATED AUTHOR AUTHOR'S ORGANIZ ATION 06/01/2020 [facility] DATE CREATED AUTHOR AUTHOR'S ORGANIZ ATION 10/25/2021 [facility] DATE CREATED AUTHOR AUTHOR'S ORGANIZ ATION 09/15/2023 [facility] Reason for Visit (unrecogniz ed section and content) Status Reason Specialty Diagnoses / Procedures Referred By Contact Referred To Contact Pending Status Check - [facility] Diagnoses History of hypercalcemia Hyperparathyroidism due to renal insufficiency (HCC) Parathyroid adenoma Procedures NM PARATHYORID W SPECT NM Parathyroid Scan HC NM PARATHYROID SCAN Edgar Dennis, PA [address] [place] [address] Status Reason Specialty Diagnoses / Procedures Referred By Contact Referred To Contact Not Required - [facility] Diagnoses Oropharyngeal dysphagia Procedures FL Modified Barium Swallow W Video Sajan Ramos MD [address] [place] [address] Status Reason Specialty Diagnoses / Procedures Re ferred By Contact Referred To Contact Not Required - [facility] Diagnoses Shortness of breath Procedures Full PFT Study With Bronchodilator Nash Cuellar MD [address] [place] [address] Status Reason Specialty Diagnoses / Procedures Re ferred By Contact Referred To Contact Manual Review Required - [facility] Diagnoses Renal cyst Procedures US RETROPERITONEAL LIMITED Jack Rosa MD [address] [place] [address] Status Reason Specialty Diagnoses / Procedures Referred By Contact Referred To Contact Authorized Specialty Services Required Speech Pathology / Speech Therapy Diagnoses Dysarthria Procedures Visits based on medical necessity copay $35 per visits Follows medicare guidelines Effective 12/26/19 Ref#[id number] 03/03@155 spoke to tonja re: benefits/ca TELEHEALTH 06/25/2020 Sajan Ramos MD [address] [place] [address] Dominik Sage, BOTANICAL TECHNICAL OFFICER Status Reason Specialty Diagnoses / Procedures Referre d By Contact Referred To Contact Closed Radiology Diagnoses Cervical radiculopathy Procedures MRI CERVICAL SPINE WO CONTRAST Sajan Ramos MD [address] [place] [address] Reason Comments Shoulder Pain Right upper arm, cecilio ulder, right side of neck pain x 1 week, worse yesterday Status Reason Specialty Diagnoses / Procedures Referre d By Contact Referred To Contact Open Radiology Diagnoses Oropharyngeal dysphagia Procedures US HEAD NECK SOFT TISSUE THYROID Edgar Dennis, PA [address] [address] Reason Comments Nutrition Counseling BNA initial Reason Onset Date Comments Financial File 02/08/2023 Financial File 2 023 Surgery Scheduling 02/08/2023 Initial Sched uling - Orders Pended Reason Onset Date Comments Financial File 02/08/2023 Financial File 2 023 Surgery Scheduling 02/08/2023 Initial Sched uling - Orders Pended Reason Comments Obesity Reason Comments EGD EGD order Specialty Diagnoses / Procedures Referred By Contjerod t Referred To Contact Diagnoses Dyspepsia Dyspepsia [R10.13] Procedures VA EGD TRANSORAL BIOPSY SINGLE/MULTIPLE EGD WITH BIOPSY Ole Faulkner MD [address] [facility] [address] [place] [address] [facility] [address] [facility] [address] [place] [address] Referral ID Status Reason Start Date Expiration Date Visits Re quested Visits Authorized [id number] 1 1 Reason Onset Date Comments Financial File 02/08/2023 Financial File 2 023 Surgery Scheduling 02/08/2023 Initial Sched uling - Orders Pended Reason Onset Date Comments Financial File 02/08/2023 Financial File 2 023 Surgery Scheduling 02/08/2023 Initial Sched uling - Orders Pended Prior Authorization 02/08/2023 GES approved Specialty Diagnoses / Procedures Referred By Contac t Referred To Contact Radiology Diagnoses Type 2 diabetes mellitus without complication, unspecified whether predatory animal exterminator insulin use (HCC) Delayed gastric emptying Procedures NM gastric emptying solid Bernadine Alvarado NP [address] [facility] [address] [place] [address] Referral ID Status Reason Start Date Expiration Date V isits Requested Visits Authorized [id number] Authorized 06/23/2023 12/20/2023 3 3 Reason Comments Weight Loss D/E 2 of 3 Reason Comments Weight Loss D/E 3 of 3 final Specialty Diagnoses / Procedures Referred By Adrian davies Referred To Contact Diagnoses GERD (gastroesophageal reflux disease) GERD (gastroesophageal reflux disease) [K21.9] Procedures VA EGD TRANSORAL BIOPSY SINGLE/MULTIPLE EGD WITH BIOPSY Ole Faulkner MD [address] [place] [address] [facility] [address] [place] [address] Referral ID Status Reason Start Date Expiration Date Visits Re quested Visits Authorized [id number] 1 1 Reason Comments Nutrition Counseling BNA Follow Up Care Teams (unrecognized sec tion and content) Fire Equipment Inspector Relationship Specialty Start Date End Date Alexis Epperson [address] [place] [address] PCP - General Internal Medicine 01/27/23 Ole Faulkner MD [address] [facility] [address] [place] [address] Surgeon General Surgery 02/04/23 Fire Equipment Inspector Relationship Specialty Start Date End Date Alexis Epperson [address] [place] [address] PCP - General Internal Medicine 01/27/23 Ole Faulkner MD [address] [facility] [address] [place] [address] Surgeon General Surgery 02/04/23 Fire Equipment Inspector Relationship Specialty Start Date End Date Alexis Epperson [address] [place] [address] PCP - General Internal Medicine 01/27/23 Ole Faulkner MD [address] [facility] [address] [place] [address] Surgeon General Surgery 02/04/23 Fire Equipment Inspector Relationship Specialty Start Date End Date Alexis Epperson [address] [place] [address] PCP - General Internal Medicine 01/27/23 Ole Faulkner MD [address] [place] [address] [address] [place], [place] [id number] Surgeon General Surgery 02/04/23 Fire Equipment Inspector Relationship Specialty Start Date End Date MichaelAlexis riggs PCP - General Internal Medicine 01/27/23 Ole Faulkner MD [address] [place] [address] [address] [place], [place] [id number] Surgeon General Surgery 02/04/23 Fire Equipment Inspector Relationship Specialty Start Date End Date Annmarie Eppersoncathiemildred Becerra PCP - General Internal Medicine 01/27/23 Ole Faulkner MD [address] [place] [address] [address] [place], [place] [id number] Surgeon General Surgery 02/04/23 Fire Equipment Inspector Relationship Specialty Start Date End Date Alexis Epperson PCP - General Internal Medicine 01/27/23 Ole Faulkner MD [address] [place] [address] [address] [place] [address] Surgeon General Surgery 02/04/23 Fire Equipment Inspector Relationship Specialty Start Date End Date MichaelarmandoAlexis christianson PCP - General Internal Medicine 01/27/23 Ole Faulkner MD [address] [place] [address] [address] [place], [place] [id number] Surgeon General Surgery 02/04/23 Fire Equipment Inspector Relationship Specialty Start Date End Date Alexis Epperson PCP - General Internal Medicine 01/27/23 Ole Faulkner MD [address] [place] [address] [address] [place], [place] [id number] Surgeon General Surgery 02/04/23 Fire Equipment Inspector Relationship Specialty Start Date End Date Alexis Epperson PCP - General Internal Medicine 01/27/23 Ole Faulkner MD [address] [place] [address] [address] [place], [place] [id number] Surgeon General Surgery 02/04/23 Fire Equipment Inspector Relationship Specialty Start Date End Date Alexis Epperson PCP - General Internal Medicine 01/27/23 Ole Faulkner MD [address] [place] [address] [address] [place], [place] [id number] Surgeon General Surgery 02/04/23 Fire Equipment Inspector Relationship Specialty Start Date End Date Alexis Epperson PCP - General Internal Medicine 01/27/23 Ole Faulkner MD [address] [place] [address] [address] [place] [address] Surgeon General Surgery 02/04/23 Fire Equipment Inspector Relationship Specialty Start Date End Date Alexis Epperson PCP - General Internal Medicine 01/27/23 Ole Faulkner MD [address] [place] [address] [address] [place] [address] Surgeon General Surgery 02/04/23 Fire Equipment Inspector Relationship Specialty Start Date End Date Alexis Epperson PCP - General Internal Medicine 01/27/23 Ole Faulkner MD [address] [place] [address] Surgeon General Surgery 02/04/23 Fire Equipment Inspector Relationship Specialty Start Date End Date Michaeloneil Annmariezoienatalie Hernan PCP - General Internal Medicine 01/27/23 Ole Faulkner MD [address] [place] [address] [address] [place] [address] Surgeon General Surgery 02/04/23 Fire Equipment Inspector Relationship Specialty Start Date End Date Michaeloneil Annmariezoienatalie Hernan PCP - General Internal Medicine 01/27/23 Ole Faulkner MD [address] [place] [address] [address] [place] [address] Surgeon General Surgery 02/04/23 Fire Equipment Inspector Relationship Specialty Start Date End Date Michaeloneil Annmariejonny Becerra PCP - General Internal Medicine 01/27/23 Ole Faulkner MD [address] [place] [address] Surgeon General Surgery 02/04/23 Fire Equipment Inspector Relationship Specialty Start Date End Date Michaeloneil Annmariecathiemildred Hernan PCP - General Internal Medicine 01/27/23 Ole Faulkner MD [address] [place], [place] [id number] Surgeon General Surgery 02/04/23 Fire Equipment Inspector Relationship Specialty Start Date End Date MichaelarmandoAnnmarie christiansonzoienatalie Hernan PCP - General Internal Medicine 01/27/23 Ole Faulkner MD [address] [place], [place] [id number] Surgeon General Surgery 02/04/23 Fire Equipment Inspector Relationship Specialty Start Date End Date Annmarie Eppersoncathiemildred Hernan PCP - General Internal Medicine 01/27/23 Ole Faulkner MD [address] [place] [address] [address] [place] [address] Surgeon General Surgery 02/04/23 Fire Equipment Inspector Relationship Specialty Start Date End Date MichaelarmandoAnnmarie christiansoncathiemildred Hernan PCP - General Internal Medicine 01/27/23 Ole Faulkner MD [address] [place] [address] Surgeon General Surgery 02/04/23 Fire Equipment Inspector Relationship Specialty Start Date End Date Alexis Epperson Hernan PCP - General Internal Medicine 01/27/23 Ole Faulkner MD [address] [place] [address] Surgeon General Surgery 02/04/23 Fire Equipment Inspector Relationship Specialty Start Date End Date Alexis Epperson [address] [facility] [address] [place] [address] PCP - General Internal Medicine 08/25/23 Ole Faulkner MD [address] [facility] [address] [place] [address] Surgeon General Surgery 02/04/23 Fire Equipment Inspector Relationship Specialty Start Date End Date Chuyita Eppersonnatalie Hernan [address] [facility] [address] [place] [address] PCP - General Internal Medicine 08/25/23 Ole Faulkner MD [address] [facility] [address] [place], [place] [phone] Surgeon General Surgery 02/04/23 Continuous Active and Recently Administ ered Medications (unrecognized section and content) FOR RECORDS PERTAINING TO PATIENTS WHO ARE OR HAVE BEEN ENROLLED IN A CHEMICAL DEPENDENCY/SUBSTANCEABUSE PROGRAM, SOME INFORMATION MAY BE OMITTED. This clinical summary was aggregated from multiple sources. Caution should be exercised in using it in the provision of clinical care. This summary normalizes information from multiple sources, and as a consequence, information in this document may materially change the coding, format and clinical context of patient data. In addition, data may be omitted in some cases. CLINICAL DECISIONS SHOULD BE BASED ON THE PRIMARY CLINICAL RECORDS. [facility]. provides no warranty or guarantee of the accuracy or completeness of information in this document.
[2023-09-21 21:18] LABS: Partial Thromboplast Time 59.6 Seconds (24.1-36.2)
[2023-09-21 22:06] VITALS: BP 130/85; PULSE 89; RESP 18; TEMP 36.7; O2SAT 96
[2023-09-21] MEDS: Amitriptyline 100 MG Tablet 200 MG PO (22:18)
[2023-09-21] MEDS: Latanoprost 0.005% 1 Bottle 1 DRP OPHTHALMIC (22:18)
[2023-09-21] MEDS: Insulin Glargine-YFGN 100 UNIT/ML Pen 40 UNIT SC (22:21)
[2023-09-21 22:47] LABS: Bedside Glucose 148 mg/dL (74-106)
[2023-09-22] VITALS (11 sets, daily range): BP systolic 108–125; BP diastolic 55–88; PULSE 73–80; RESP 12–22; TEMP 36.4–36.7; O2SAT 88–99
[2023-09-22 03:58] LABS: Absolute Lymphocyte Count 1.35 X10^3/uL (0.83-4.51); Absolute Neutrophil Count 4.7 X10^3/uL (2.0-7.7); Basophil# 0.02 X10^3/uL; Basophil% 0.3 % (0-1); Eosinophil# 0.03 X10^3/uL; Eosinophils% 0.4 % (0-5); Hematocrit 37.2 % (37-47); Hemoglobin 11.3 g/dL (12.0-15.0); Lymphocyte # 1.35 X10^3/ul (0.83-4.51); Lymphocyte % 19.6 % (19-41); Mean Corp Hgb Conc 30.4 g/dL (32-36); Mean Corpuscular Hgb 28.7 pg (27.0-32.0); Mean Corpuscular Volume 94.4 fL (81-99); Mean Platelet Vol. 11.3 fl (6.2-12.0); Monocyte# 0.75 X10^3/uL; Monocyte% 10.9 % (0-10); NRBC Flagged by Analyzer 0 % (0-5); Neutrophil # 4.67 X10^3/uL (2.7-7.7); Neutrophil % 67.8 % (47-70); Platelet Count 244 K/mm3 (150-450); RBC Distribution Width CV 15.1 % (11.6-14.6); RBC Distribution Width SD 52.9 fl (35.1-43.9); Red Blood Count 3.94 M/mm3 (4.2-5.4); White Blood Count 6.9 K/mm3 (4.4-11.0)
[2023-09-22 04:15] LABS: Anion Gap 5 (5-15); BUN 35 mg/dL (7-18); BUN/Creat Ratio 22.2 RATIO (10-20); Calcium,Total 9.6 mg/dL (8.5-10.1); Chloride 105 mmol/L (98-107); Creatinine, Serum 1.58 mg/dL (0.55-1.02); EST Glomerular Filtration Rate 35 mL/min (>60); Est Glom Filt Rate - Afr Amer 42 mL/min (>60); Estimated Creatinine Clearance 25.72 ml/min; Glucose 148 mg/dL (74-106); Potassium 4.1 mmol/L (3.5-5.1); Sodium Level 139 mmol/L (136-145)
[2023-09-22 04:27] LABS: Partial Thromboplast Time 63.2 Seconds (24.1-36.2)
[2023-09-22] MEDS: busPIRone 5 MG Tablet 10 MG PO ×3 (05:51→23:08)
[2023-09-22] MEDS: Remdesivir 100 MG in 0.9% Normal Saline (250mL Bag) 230 ML 250 MG IV (09:21)
[2023-09-22] MEDS: 0.9% Saline Lock 10 ML Syringe IV (09:22)
[2023-09-22] MEDS: RIMEGEPANT SULFATE 75 MG TAB.RAPDIS PO (09:22)
[2023-09-22] MEDS: dexAMETHasone 4 MG Tablet 6 MG PO (09:24)
[2023-09-22] MEDS: Pantoprazole Sodium 40 MG Tablet PO ×2 (09:24→23:09)
[2023-09-22] MEDS: Loratadine 10 MG Tablet PO (09:24)
[2023-09-22] MEDS: Pregabalin 75 MG Capsule 150 MG PO ×2 (09:24→23:09)
[2023-09-22] MEDS: Aspirin E.C. 81 MG Tablet PO (09:24)
[2023-09-22] MEDS: Empagliflozin 10 MG Tablet PO (09:24)
[2023-09-22] MEDS: APIXABAN 5 MG TABLET 10 MG PO ×2 (09:24→23:09)
[2023-09-22] MEDS: Lisinopril 2.5 MG Tablet PO (09:24)
[2023-09-22] MEDS: Ezetimibe 10 MG Tablet PO (09:25)
[2023-09-22] MEDS: DULoxetine Hcl 60 MG Capsule 120 MG PO (09:25)
[2023-09-22] MEDS: Ursodiol 250 MG Tablet PO ×2 (09:25→23:09)
[2023-09-22 09:47] LABS: Bedside Glucose 126 mg/dL (74-106)
--- NOTE | 2023-09-22 11:23 | DS.PCM_ITS ---
Providers Date of Admission: 09/20/23 Primary Care Physician: Dr. 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: [facility] / Pulmonary Medicine Routine Consulting Provider: [facility] Reason for Consult: acute submassive PE EMERGENT Consult: No Notified: Yes Date Notified: 09/20/23 Time Notified: 14:14 Method of Notification: Text 09/21/23 09:27 Consult: Cardiology Routine Consulting Provider: Bebeto Gallagher Reason for Consult: elevated troponin,LV systolic dysfuncion on echo EMERGENT Consult: No Notified: Yes Date Notified: 09/21/23 Time Notified: 09:27 Method of Notification: Verbal Reason For Visit: PULMONARY EMBOLISM Diagnosis Discharge Diagnosis (1) Pulmonary emboli: Status: Acute Code(s): I26.99 - Other pulmonary embolism without acute cor pulmonale Plan #Acute hypoxic respiratory failure due to submassive PE with right ventricular strain * Remains on heparin drip. Down to 4 L of oxygen. * On remdesivir and Decadron for COVID. * Troponins trended down. Elevated BNP also likely due to PE * 2D echo showed EF of 45 to 50% with mild left ventricular systolic dysfunction and mild global ventricular hypokinesis with mild right ventricular systolic dysfunction with mildly dilated right ventricle. * On heparin drip. * pulmonology consulted * In light of the decreased EF and left ventricular systolic dysfunction, cardiology also consulted. Dr. Elliott Tate informed by phone * #COVID-19 infection: As above. Start on remdesivir and decadron. Breathing treatment with bronchodilators. Titrate oxygen to maintain sats >90% #Submassive PE with right ventricular strain: As above #Type 2 diabetes mellitus on Lantus 40 units nightly. Insulin sliding scale. Accuchecks ACHS. Also on Jardiance. #Hypertension: On lisinopril 2.5 mg daily as well as metoprolol. Also on Trulicity. #Recent diagnosis of gout: On prednisone and oxycodone #History of headaches: Has a history of migraines. On rimegapant. #Depression: On amitriptyline and buspirone DVT prophylaxis: On heparin drip as above CODE STATUS: Full code * Total time spent on evaluation and management of patient, reviewing chart, discussing plan with patient, discussion with nursing and ancillary staff as well as documentation:42 mins Medications at Discharge Home Medications CPAP #1 ea 09/24/20 aspirin 81 mg tablet,delayed release 81 mg PO DAILY 09/24/20 blood pressure monitor (Blood Pressure Kit) #1 ea 09/24/20 blood sugar diagnostic (Accu-Chek Christi Plus test strips) #10 ea 09/24/20 blood-glucose meter #1 ea 09/24/20 lancets (Accu-Chek Softclix Lancets) #100 ea 09/24/20 vit C,E,zinc,Pg-svnuu-6-lutein-zeaxanthin 250 mg-2.5 mg-0.5 mg capsule 1 cap PO DAILY 09/24/20 latanoprost 0.005 % eye drops 1 drp ophthalmic (eye) PRN PRN MACULAR DEGENRATION 02/24/21 simethicone 80 mg chewable tablet 80 mg PO 4X/DAY PRN Flatulence #30 tabs 12/07/21 vitamin E 268 mg (400 unit) capsule 800 unit PO DAILY #60 caps 02/08/22 Bilateral wrist splints #2 ea 06/07/22 Trulicity 4.5 mg/0.5 mL subcutaneous pen injector (dulaglutide) 4.5 mg (0.5 mL) subcut QWEEK #2 mL 07/27/22 pen needle, diabetic 32 gauge x 1/4 (Novofine 32) #200 ea 07/27/22 cholestyramine (with sugar) 4 gram oral powder 4 g PO DAILY #348.6 grams 08/12/22 fluticasone propionate 50 mcg/actuation nasal spray,suspension 2 spray intranasal PRN PRN Nasal Congestion 09/06/22 ursodiol 250 mg tablet See Rx Instructions .Route .COMPLEX #180 tabs 10/14/22 lisinopril 2.5 mg tablet See Rx Instructions .Route .COMPLEX #90 TABLETS 10/26/22 pantoprazole 40 mg tablet,delayed release 40 mg PO BID #180 tabs 01/04/23 ezetimibe 10 mg tablet (Zetia) 10 mg PO DAILY #60 tabs 02/28/23 insulin lispro 100 unit/mL subcutaneous pen (Humalog KwikPen (U-100) Insulin) 12 unit subcut TID 02/28/23 Jardiance 10 mg tablet (empagliflozin) 10 mg PO DAILY #30 tabs 03/14/23 denosumab 60 mg/mL subcutaneous syringe (Prolia) 60 mg subcut [id number] #1 mL 03/17/23 insulin degludec 100 unit/mL (3 mL) subcutaneous pen (Tresiba FlexTouch U-100 insulin) 40 unit (0.4 mL) subcut QHS #36 mL 07/11/23 duloxetine 60 mg capsule,delayed release See Rx Instructions .Route .COMPLEX #180 caps 08/01/23 cholecalciferol (vitamin D3) 1,250 mcg (50,000 unit) capsule 1,250 mcg PO QWEEK #30 caps 08/22/23 amitriptyline 100 mg tablet 200 mg (2 x 100 mg) PO QHS #180 tabs 08/23/23 buspirone 10 mg tablet 10 mg PO TID #270 tabs 08/23/23 cyclobenzaprine 10 mg tablet 5 - 10 mg (0.5 - 1 x 10 mg) PO TID PRN muscle spasm #270 tabs 08/23/23 loratadine 10 mg tablet 10 mg PO DAILY #90 tabs 08/23/23 pregabalin 150 mg capsule 150 mg PO BID #180 caps 08/23/23 rimegepant 75 mg disintegrating tablet (Nurtec ODT) 75 mg PO DAILY PRN migraine headache #8 tabs 08/23/23 albuterol sulfate 90 mcg/actuation aerosol inhaler (Ventolin HFA) 1 - 2 puff inhalation Q4H PRN PRN Wheezing #1 inh 09/11/23 oxycodone-acetaminophen 5 mg-325 mg tablet 1 tab PO Q6H PRN PRN Pain 3 days #12 TABLETS 09/13/23 prednisone 20 mg tablet 40 mg (2 x 20 mg) PO DAILY 5 days #10 TABLETS 09/13/23 apixaban 5 mg (74 tabs) tablets in a dose pack (Eliquis DVT-PE Treat 30D Start) 5 mg PO BID #74 tabs 09/22/23 dexamethasone 6 mg tablet 6 mg PO DAILY #7 tabs 09/22/23 metoprolol tartrate 25 mg tablet 12.5 mg (1/2 x 25 mg) PO BID #30 tabs 09/22/23 Weight / BMI Weight Weight: 229 lb 8.019 oz Body Mass Index (BMI) 43.3 ABG / Lab / Microbiology Data 09/22/23 03:19 09/22/23 03:19 Laboratory: Laboratory Results - last 24 hr 09/21/23 12:41: POC Glucose 109 H 09/21/23 14:15: APTT 46.5 H 09/21/23 17:34: POC Glucose 151 H 09/21/23 20:50: APTT 59.6 H 09/21/23 22:04: POC Glucose 148 H 09/22/23 03:19: WBC 6.9, RBC 3.94 L, Hgb 11.3 L, Hct 37.2, MCV 94.4, MCH 28.7, MCHC 30.4 L, RDW Std Deviation 52.9 H, RDW Coeff of Paulo 15.1 H, Plt Count 244, MPV 11.3, Immature Gran % (Auto) 1.000 H, Neut % (Auto) 67.8, Lymph % (Auto) 19.6, [place] % (Auto) 10.9 H, Eos % (Auto) 0.4, Baso % (Auto) 0.3, Absolute Neuts (auto) 4.7, Absolute Lymphs (auto) 1.35, Nucleated RBC % 0, APTT 63.2 H, Sodium 139, Potassium 4.1, Chloride 105, Carbon Dioxide 29.0, Anion Gap 5, BUN 35 H, Creatinine 1.58 H, Estim Creat Clear Calc 25.72, Est GFR (MDRD) Af Amer 42 L, Est GFR (MDRD) Non-Af 35 L, BUN/Creatinine Ratio 22.2 H, Glucose 148 H, Calcium 9.6 09/22/23 09:17: POC Glucose 126 H Microbiology: Microbiology 09/20/23 09:56 Nasal Secretion SARS-CoV-2 & FLU Antigen (Rapid) - Final SARS-CoV-2 (COVID 19) D/C Instructions Discharge Diet: Low fat / Low cholesterol Weight Bearing Status: Weight bearing as tolerated Call your doctor if you observe: Fever of 101 or Higher, Shortness of breath, Dizziness, Swelling in the ankles and Chest pain Discharge Plan Admission Admit Date/Time: 09/20/23 12:33 Primary Reason for Your Visit: PE Attending Provider: Amara Cardenas Primary Care Provider: Vamsi Epperson Consulting Providers: Bebeto Gallagher Instructions Patient Instructions: Embolism Pulmonary Dc Discharge Orders/Prescriptions Prescriptions: New Epifanio DVT-PE Treat 30D Start 5 mg (74 tabs) tablets,dose pack 5 mg PO BID Qty: 74 2RF Rx Instructions: take 2 tab (10mg) twice daily for 7 days, till Sep 29 2022, then continue on one tab (5mg) twice daily. metoprolol tartrate 25 mg tablet 12.5 mg PO BID Qty: 30 1RF dexamethasone 6 mg tablet 6 mg PO DAILY Qty: 7 0RF Continued (DME) lancets [Accu-Chek Softclix Lancets] Misc See Rx Instructions .ROUTE .MEDSUPPLY Qty: 100 Rx Instructions: As directed, Test 4 times daily before meals and at bedtime (DME) Accu-Chek Christi Plus test strp Strip See Rx Instructions .ROUTE .MEDSUPPLY Qty: 10 Rx Instructions: As directed; Test 4 times daily before meals and at bedtime vit C,E,zinc,Je-qpmct-7-lutein-zeaxanthin 250 mg-2.5 mg-0.5 mg capsule 250-2.5-0.5 mg capsule 1 cap PO DAILY (DME) CPAP See Rx Instructions .Route .MEDSUPPLY Qty: 1 Rx Instructions: 14 cm H2O (DME) blood-glucose meter Misc See Rx Instructions .ROUTE .MEDSUPPLY Qty: 1 Rx Instructions: As directed (DME) blood pressure monitor [Blood Pressure Kit] Kit See Rx Instructions .ROUTE .MEDSUPPLY Qty: 1 Rx Instructions: As directed aspirin 81 mg tablet,delayed release (DR/EC) 81 mg PO DAILY latanoprost 0.005 % drops 1 drp ophthalmic (eye) PRN PRN (Reason: MACULAR DEGENRATION) vitamin E 400 unit capsule 800 unit PO DAILY Qty: 60 5RF (DME) pen needle, diabetic [Novofine 32] 32 gauge x 1/4 needle See Rx Instructions .ROUTE .MEDSUPPLY Qty: 200 6RF Rx Instructions: As directed; 4x/day Trulicity 4.5 mg/0.5 mL pen injector 4.5 mg subcut QWEEK Qty: 2 4RF (DME) Bilateral wrist splints See Rx Instructions .Route .MEDSUPPLY Qty: 2 0RF Rx Instructions: As directed insulin lispro [Humalog KwikPen Insulin] 100 unit/mL insulin pen 12 unit subcut TID Rx Instructions: 12u with meals, 6u with snacks. +SSI 180-210+2; 211-240+3; 241-300+5; >300 +7 MDD 50 pantoprazole 40 mg tablet,delayed release (DR/EC) 40 mg PO BID Qty: 180 1RF buspirone 10 mg tablet 10 mg PO TID Qty: 270 1RF loratadine 10 mg tablet 10 mg PO DAILY Qty: 90 1RF amitriptyline 100 mg tablet 200 mg PO QHS Qty: 180 1RF Nurtec ODT 75 mg tablet,disintegrating 75 mg PO DAILY PRN (Reason: migraine headache) Qty: 8 5RF pregabalin 150 mg capsule 150 mg PO BID Qty: 180 1RF cyclobenzaprine 10 mg tablet 5 - 10 mg PO TID PRN (Reason: muscle spasm) Qty: 270 1RF fluticasone propionate 50 mcg/actuation spray,suspension 2 spray INTRANASAL PRN PRN (Reason: Nasal Congestion) Rx Instructions: administer into each nostril albuterol sulfate [Ventolin HFA] 90 mcg/actuation HFA aerosol inhaler 1 - 2 puff inhalation Q4H PRN PRN (Reason: Wheezing) Qty: 1 0RF prednisone 20 mg tablet 40 mg PO DAILY 5 Days Qty: 10 0RF oxycodone-acetaminophen 5-325 mg tablet 1 tab PO Q6H PRN PRN (Reason: Pain) 3 Days Qty: 12 0RF simethicone 80 mg tablet,chewable 80 mg PO 4X/DAY PRN (Reason: Flatulence) Qty: 30 1RF cholestyramine (with sugar) 4 gram powder 4 g PO DAILY Qty: 348.6 0RF Rx Instructions: administer w/meal; avoid other meds within 1hr before or 4-6hr after dose ursodiol 250 mg tablet See Rx Instructions .ROUTE .COMPLEX Qty: 180 3RF Dose Instruction: TAKE 1 TABLET BY MOUTH TWICE DAILY Rx Instructions: TAKE 1 TABLET BY MOUTH TWICE DAILY lisinopril 2.5 mg tablet See Rx Instructions .ROUTE .COMPLEX Qty: 90 2RF Dose Instruction: TAKE 1 TABLET BY MOUTH EVERY DAY Rx Instructions: TAKE 1 TABLET BY MOUTH EVERY DAY ezetimibe [Zetia] 10 mg tablet 10 mg PO DAILY Qty: 60 2RF Jardiance 10 mg tablet 10 mg PO DAILY Qty: 30 6RF Prolia 60 mg/mL syringe 60 mg subcut [id number] Qty: 1 0RF Tresiba FlexTouch U-100 100 unit/mL (3 mL) insulin pen 40 unit SC QHS Qty: 36 1RF duloxetine 60 mg capsule,delayed release(DR/EC) See Rx Instructions .ROUTE .COMPLEX Qty: 180 1RF Dose Instruction: TAKE 2 CAPSULES BY MOUTH DAILY Rx Instructions: TAKE 2 CAPSULES BY MOUTH DAILY cholecalciferol (vitamin D3) 1,250 mcg (50,000 unit) capsule 1,250 mcg PO QWEEK Qty: 30 1RF Referrals / Follow Up: Sean Nagel MD [Med Staff - Active Staff] - Within 2 Weeks Vamsi Epperson MD [Primary Care Provider] - 09/29/23 2:15 pm Judah Mora MD [Non-Staff -Ordering Privileges] - 09/27/23 11:00 am Disposition Disposition (needs filled in before D/C Order can be placed): Home, Self Care
--- NOTE | 2023-09-22 11:38 | PHA.DC.MR.R ---
Pharmacy [place] Med Reconciliation Pharmacy Service has performed discharge medication reconciliation for this patient. Attempted to travel [employer] x2 via telephone due to COVID precautions but patient did not answer. The patient's discharge medication list was reviewed for discrepancies and discrepancies were resolved. Medications at Discharge Home Medications CPAP #1 ea 09/24/20 aspirin 81 mg tablet,delayed release 81 mg PO DAILY 09/24/20 blood pressure monitor (Blood Pressure Kit) #1 ea 09/24/20 blood sugar diagnostic (Accu-Chek Christi Plus test strips) #10 ea 09/24/20 blood-glucose meter #1 ea 09/24/20 lancets (Accu-Chek Softclix Lancets) #100 ea 09/24/20 vit C,E,zinc,Qk-alzyb-5-lutein-zeaxanthin 250 mg-2.5 mg-0.5 mg capsule 1 cap PO DAILY 09/24/20 latanoprost 0.005 % eye drops 1 drp ophthalmic (eye) PRN PRN MACULAR DEGENRATION 02/24/21 simethicone 80 mg chewable tablet 80 mg PO 4X/DAY PRN Flatulence #30 tabs 12/07/21 vitamin E 268 mg (400 unit) capsule 800 unit PO DAILY #60 caps 02/08/22 Bilateral wrist splints #2 ea 06/07/22 Trulicity 4.5 mg/0.5 mL subcutaneous pen injector (dulaglutide) 4.5 mg (0.5 mL) subcut QWEEK #2 mL 07/27/22 pen needle, diabetic 32 gauge x 1/4 (Novofine 32) #200 ea 07/27/22 cholestyramine (with sugar) 4 gram oral powder 4 g PO DAILY #348.6 grams 08/12/22 fluticasone propionate 50 mcg/actuation nasal spray,suspension 2 spray intranasal PRN PRN Nasal Congestion 09/06/22 ursodiol 250 mg tablet See Rx Instructions .Route .COMPLEX #180 tabs 10/14/22 lisinopril 2.5 mg tablet See Rx Instructions .Route .COMPLEX #90 TABLETS 10/26/22 pantoprazole 40 mg tablet,delayed release 40 mg PO BID #180 tabs 01/04/23 ezetimibe 10 mg tablet (Zetia) 10 mg PO DAILY #60 tabs 02/28/23 insulin lispro 100 unit/mL subcutaneous pen (Humalog KwikPen (U-100) Insulin) 12 unit subcut TID 02/28/23 Jardiance 10 mg tablet (empagliflozin) 10 mg PO DAILY #30 tabs 03/14/23 denosumab 60 mg/mL subcutaneous syringe (Prolia) 60 mg subcut [id number] #1 mL 03/17/23 insulin degludec 100 unit/mL (3 mL) subcutaneous pen (Tresiba FlexTouch U-100 insulin) 40 unit (0.4 mL) subcut QHS #36 mL 07/11/23 duloxetine 60 mg capsule,delayed release See Rx Instructions .Route .COMPLEX #180 caps 08/01/23 cholecalciferol (vitamin D3) 1,250 mcg (50,000 unit) capsule 1,250 mcg PO QWEEK #30 caps 08/22/23 amitriptyline 100 mg tablet 200 mg (2 x 100 mg) PO QHS #180 tabs 08/23/23 buspirone 10 mg tablet 10 mg PO TID #270 tabs 08/23/23 cyclobenzaprine 10 mg tablet 5 - 10 mg (0.5 - 1 x 10 mg) PO TID PRN muscle spasm #270 tabs 08/23/23 loratadine 10 mg tablet 10 mg PO DAILY #90 tabs 08/23/23 pregabalin 150 mg capsule 150 mg PO BID #180 caps 08/23/23 rimegepant 75 mg disintegrating tablet (Nurtec ODT) 75 mg PO DAILY PRN migraine headache #8 tabs 08/23/23 albuterol sulfate 90 mcg/actuation aerosol inhaler (Ventolin HFA) 1 - 2 puff inhalation Q4H PRN PRN Wheezing #1 inh 09/11/23 oxycodone-acetaminophen 5 mg-325 mg tablet 1 tab PO Q6H PRN PRN Pain 3 days #12 TABLETS 09/13/23 apixaban 5 mg (74 tabs) tablets in a dose pack (Eliquis DVT-PE Treat 30D Start) 5 mg PO BID #74 tabs 09/22/23 dexamethasone 6 mg tablet 6 mg PO DAILY #7 tabs 09/22/23 metoprolol tartrate 25 mg tablet 12.5 mg (1/2 x 25 mg) PO BID #30 tabs 09/22/23
--- NOTE | 2023-09-22 12:00 | PCM.PN.CARD ---
Subjective Subjective I was contacted by Dr. Maloney regarding Ms. Mohr echocardiogram finding of mildly reduced EF of 45 to 50% in the setting of acute PE and acute COVID infection. Patient has slight elevated troponin which trended down due to hypoxemic respiratory failure in the setting of acute COVID infection and submassive PE. Given the patient's situation of COVID did not physically see the patient. Discussed the case with Dr. Ronald Maloney, who has contacted me regarding the echo finding and for recommendation regarding management of the slightly depressed EF. patient did not have any chest pain. EF is mildly reduced 45 to 50% with mildly elevated troponin in the setting of acute COVID infection and acute submassive PE. Continue treatment of COVID and PE as per primary team. Consider adding lisinopril 2.5 mg daily and Toprol-XL as part of guideline directed therapy. Consider repeat outpatient echocardiogram and obtain a stress test as outpatient once patient is able to. Follow-up with cardiology as outpatient within 2 weeks Objective Data Vital Signs: Vital Signs Temp Pulse Resp BP Pulse Ox O2 Del Method O2 Flow Rate 97.5 F L 74 16 119/88 H 88 Nasal Cannula 2 09/22/23 09:20 09/22/23 09:20 09/22/23 09:20 09/22/23 09:20 09/22/23 11:03 09/22/23 09:20 09/22/23 11:03 Oxygen Flow Rate (L/min) [ 2 AMBULATING with Oxygen #1] Oxygen Flow Rate (L/min) [At 2 REST with Oxygen] Oxygen Flow Rate (L/min) 2 Oxygen Delivery Method Nasal Cannula Weight: 229 lb 8.019 oz Body Mass Index (BMI) 43.3 Intake & Output: Intake and Output for Last 24 Hours 09/20/23 09/21/23 09/22/23 23:59 23:59 23:59 Intake Total 914.75 / 914.75 1406.38 / 1406.38 426.12 / 426.12 Output Total 2500 / 2500 200 / 200 Balance 914.75 / 914.75 -1093.62 / -1093.62 226.12 / 226.12 Lab / Micro Data 09/22/23 03:19 09/22/23 03:19 Labs: Laboratory Results - last 24 hr 09/21/23 12:41: POC Glucose 109 H 09/21/23 14:15: APTT 46.5 H 09/21/23 17:34: POC Glucose 151 H 09/21/23 20:50: APTT 59.6 H 09/21/23 22:04: POC Glucose 148 H 09/22/23 03:19: WBC 6.9, RBC 3.94 L, Hgb 11.3 L, Hct 37.2, MCV 94.4, MCH 28.7, MCHC 30.4 L, RDW Std Deviation 52.9 H, RDW Coeff of Paulo 15.1 H, Plt Count 244, MPV 11.3, Immature Gran % (Auto) 1.000 H, Neut % (Auto) 67.8, Lymph % (Auto) 19.6, [place] % (Auto) 10.9 H, Eos % (Auto) 0.4, Baso % (Auto) 0.3, Absolute Neuts (auto) 4.7, Absolute Lymphs (auto) 1.35, Nucleated RBC % 0, APTT 63.2 H, Sodium 139, Potassium 4.1, Chloride 105, Carbon Dioxide 29.0, Anion Gap 5, BUN 35 H, Creatinine 1.58 H, Estim Creat Clear Calc 25.72, Est GFR (MDRD) Af Amer 42 L, Est GFR (MDRD) Non-Af 35 L, BUN/Creatinine Ratio 22.2 H, Glucose 148 H, Calcium 9.6 09/22/23 09:17: POC Glucose 126 H Cardiology Labs/Tests 09/21/23 14:15: APTT 46.5 H 09/21/23 20:50: APTT 59.6 H 09/22/23 03:19: WBC 6.9, RBC 3.94 L, Hgb 11.3 L, Hct 37.2, MCV 94.4, MCH 28.7, MCHC 30.4 L, Plt Count 244, MPV 11.3, Immature Gran % (Auto) 1.000 H, Neut % (Auto) 67.8, Lymph % (Auto) 19.6, [place] % (Auto) 10.9 H, Eos % (Auto) 0.4, Baso % (Auto) 0.3, Absolute Neuts (auto) 4.7, Nucleated RBC % 0, APTT 63.2 H, Sodium 139, Potassium 4.1, Chloride 105, Carbon Dioxide 29.0, Anion Gap 5, BUN 35 H, Creatinine 1.58 H, Est GFR (MDRD) Af Amer 42 L, Est GFR (MDRD) Non-Af 35 L, BUN/Creatinine Ratio 22.2 H, Glucose 148 H, Calcium 9.6 Rhythm: EKG: ECHO: Stress Test: Cardiac Cath: PCI: CT Surgery: Holter monitor: EPS: PPM: CXR: Chest CT Scan:
[2023-09-22] MEDS: Cholestyramine/Sucrose 4 GM/PACKET PO (12:10)
--- NOTE | 2023-09-22 13:26 | CASEMGMT ---
Discharge Planning A list of?HH providers including quality and resource use data and consistent with the patient's preferred geographic region, medical needs, and insurance network was created in [employer] Guide.? This list was provided to the RN NOAH. Cherelle Vo, Discharge Planning Asst.
--- NOTE | 2023-09-22 13:31 | CT_ITS ---
STUDY: CT BRAIN WITHOUT CONTRAST REASON FOR EXAM: Female, 68 years old. altered mental status RADIATION DOSAGE (If Supplied By Facility): CTDIvol = ( 44.99 ) mGy, DLP = ( 779.24 ) mGycm TECHNIQUE: Transaxial CT imaging of the brain was performed without administration of intravenous contrast material. Individualized dose optimization techniques were used for this CT. COMPARISON: 06/02/2022 CT head FINDINGS: Normal soft tissue structures. Normal calvarium. Normal size ventricles and extra-axial spaces for the patient''s age. Normal white matter tracts of the cerebral hemispheres. Normal basal ganglia and thalami. Normal brainstem. Normal cerebellum. There is no intracranial hemorrhage. There are no findings of an acute ischemic infarction. Fluid layering within the ethmoid and right frontal sinuses are noted. CT/Brain/Head without Contrast IMPRESSION: No evidence of acute intracranial bleed, mass or ischemia. Electronically Signed: Christian Mccarthy DO at 14:41 EST ,
--- NOTE | 2023-09-22 13:32 | PN_ITS ---
Subjective Subjective Patient seen and examined. Plan was to discharge patient today. Patient was initially lethargic this morning but during my review she was able to wake up and talk to me. However patient was noted to be even more lethargic and less responsive. I was contacted by case management in light of her persistent lethargy and weakness. Discharge plans therefore canceled. Objective Data Objective Data Vital Signs: Vital Signs Temp Pulse Resp BP Pulse Ox O2 Del Method O2 Flow Rate 97.5 F L 74 16 119/88 H 88 Nasal Cannula 2 09/22/23 09:20 09/22/23 09:20 09/22/23 09:20 09/22/23 09:20 09/22/23 11:03 09/22/23 09:20 09/22/23 11:03 Oxygen Flow Rate (L/min) [ 2 AMBULATING with Oxygen #1] Oxygen Flow Rate (L/min) [At 2 REST with Oxygen] Oxygen Flow Rate (L/min) 2 Oxygen Delivery Method Nasal Cannula Weight: 229 lb 8.019 oz Body Mass Index (BMI) 43.3 Intake & Output: Intake and Output for Last 24 Hours 09/20/23 09/21/23 09/22/23 23:59 23:59 23:59 Intake Total 914.75 / 914.75 1406.38 / 1406.38 666.12 / 666.12 Output Total 2500 / 2500 200 / 200 Balance 914.75 / 914.75 -1093.62 / -1093.62 466.12 / 466.12 Lab / Micro Data 09/22/23 03:19 09/22/23 03:19 Labs: Laboratory Results - last 24 hr 09/21/23 14:15: APTT 46.5 H 09/21/23 17:34: POC Glucose 151 H 09/21/23 20:50: APTT 59.6 H 09/21/23 22:04: POC Glucose 148 H 09/22/23 03:19: WBC 6.9, RBC 3.94 L, Hgb 11.3 L, Hct 37.2, MCV 94.4, MCH 28.7, MCHC 30.4 L, RDW Std Deviation 52.9 H, RDW Coeff of Paulo 15.1 H, Plt Count 244, MPV 11.3, Immature Gran % (Auto) 1.000 H, Neut % (Auto) 67.8, Lymph % (Auto) 19.6, [place] % (Auto) 10.9 H, Eos % (Auto) 0.4, Baso % (Auto) 0.3, Absolute Neuts (auto) 4.7, Absolute Lymphs (auto) 1.35, Nucleated RBC % 0, APTT 63.2 H, Sodium 139, Potassium 4.1, Chloride 105, Carbon Dioxide 29.0, Anion Gap 5, BUN 35 H, Creatinine 1.58 H, Estim Creat Clear Calc 25.72, Est GFR (MDRD) Af Amer 42 L, Est GFR (MDRD) Non-Af 35 L, BUN/Creatinine Ratio 22.2 H, Glucose 148 H, Calcium 9.6 09/22/23 09:17: POC Glucose 126 H Micro: Microbiology 09/20/23 09:56 Nasal Secretion SARS-CoV-2 & FLU Antigen (Rapid) - Final SARS-CoV-2 (COVID 19) Physical Exam Const alert Orientation / Consciousness: lethargic HEENT normocephalic, head/scalp atraumatic, moist oral mucous membranes and oropharynx normal Eyes PERRL and EOMs intact bilaterally Neck no lymphadenopathy, supple and no JVD Resp Resp Narrative: on 2 L of oxygen by nasal canula. diminished breath sounds bibasally, no wheezes or crackles. Cardio regular rate, regular rhythm, S1 normal heart sound, S2 normal heart sound and no murmurs GI normal to inspection, nondistended, normoactive bowel sounds, soft to palpation and non-tender Extremity normal capillary refill, no clubbing, cyanosis or edema and no calf tenderness General Extremity: no tenderness to palpation of joints or extremities Skin General Skin Exam: no breakdown Neuro Neuro Narrative: weak, lethargic Motor Exam: strength 5/5 throughout and general weakness Psych thought process normal, cooperative and affect normal Psych Narrative: weak and lethargic Assessment & Plan Assessment/Plan (1) Pulmonary emboli: PLAN: Plan #Acute hypoxic respiratory failure due to submassive PE with right ventricular strain * Remains on heparin drip. Down to 2 L of oxygen. * On remdesivir and Decadron for COVID. * Troponins trended down. Elevated BNP also likely due to PE * 2D echo showed EF of 45 to 50% with mild left ventricular systolic dysfunction and mild global ventricular hypokinesis with mild right ventricular systolic dysfunction with mildly dilated right ventricle. * On heparin drip. * pulmonology on board * In light of the decreased EF and left ventricular systolic dysfunction, cardiology also consulted. Discussed with Dr. Melvin Tate the covering fish fryer and in light of patient having PE which could also explain his symptoms, recommendations for patient to follow-up with cardiology on outpatient basis. Cardiology recommended initiating patient on low-dose me toprolol so patient started on metoprolol 12.5 mg twice daily. She is already on lisinopril 2.5 mg daily. #Acute encephalopathy * Patient was lethargic this morning when I reviewed her but she was able to wake up and talk to me. She had had no active complaints then but said she felt tired. I was informed later in the day that patient was still lethargic and weak. * In light of patient having been on heparin drip, will get a stat CT to rule out any acute intracranial pathology. She also has COVID, so will make sure she doesn have an ischemic stroke as well. Patient also has a history of BENTLEY so we will get stat ABG to see if she is hypercapnic or hypoxic. * PT/OT on board. Fall precautions. * #COVID-19 infection: As above. Onn remdesivir and decadron. Breathing treatment with bronchodilators. Titrate oxygen to maintain sats >90% #Submassive PE with right ventricular strain: As above #Type 2 diabetes mellitus on Lantus 40 units nightly. Insulin sliding scale. Accuchecks ACHS. Also on Jardiance. #Hypertension: On lisinopril 2.5 mg daily as well as metoprolol. Also on Trulicity. #Recent diagnosis of gout: On prednisone and oxycodone #History of headaches: Has a history of migraines. On rimegapant. #Depression: On amitriptyline and buspirone DVT prophylaxis: On heparin drip as above CODE STATUS: Full code * Total time spent on evaluation and management of patient, reviewing chart, discussing plan with patient, discussion with nursing and ancillary staff as well as documentation:45 mins Charges/Coding Visit Charges Inpatient E&M: 07791 [facility]
--- NOTE | 2023-09-22 13:36 | CASEMGMT ---
RN NOAH NOTE: Per Dr Cardenas this AM, plan for discharge today. CM reviewed therapy's notes and spoke w/pt earlier today,who stated she would like to go home and that she was interested in HHC and 1st choice was [facility] [place]. List of HHC options that was prepared by Cherelle, systems requirements planner, was taken to pt's room. Referral made w/[facility] @ [facility] [place], they are able to accept, w/SOC slated for Sat. Home O2 testing was completed and pt qualified for home o2 @ 2 lm continuously. Script obtained and sent to [employer] via [employer]. Pulse ox taken to room for RN to give to pt @ discharge and to instruct on use. RN CM to room to discuss transportation home, (as pt had told RN CM earlier that she was not sure who was taking her home) and to review home O2 set-up process. Pt sleeping and difficult to awaken. When pt did awaken, noted she was confused and stated, The television is physically out there and made several other confused statements. Pt even stated to this RN CM that she is feeling confused. Pt also kept falling back asleep/lethargic when talking w/santiago BASS CM. Dr Cardenas made aware of lethargy and confusion and placing orders. Discharge cx'd. [facility] @ [facility] [place] made aware. Geovanna SNYDERN KALI ZAMORA
[2023-09-22 14:07] LABS: Bedside Glucose 215 mg/dL (74-106)
[2023-09-22 15:44] LABS: Base Excess 0 mmol/L (-2 to +2); Bicarbonate 26.3 mmol/L (22-26); Blood Gas Specimen Type ART; Mode Not entered; O2 Delivery Device Cannula; PO2 74 mmHG (75-100); SITE L Radial; SO2 93 % (95-99); Total Carbon Dioxide 28 mmol/L; pCO2 50.9 mmHg (35-45); pH 7.32 (7.35-7.45)
[2023-09-22 18:08] LABS: Bedside Glucose 162 mg/dL (74-106)
[2023-09-22 23:05] LABS: Bedside Glucose 147 mg/dL (74-106)
[2023-09-22] MEDS: Amitriptyline 100 MG Tablet 200 MG PO (23:08)
[2023-09-22] MEDS: Insulin Glargine-YFGN 100 UNIT/ML Pen 40 UNIT SC (23:10)
[2023-09-22] MEDS: Latanoprost 0.005% 1 Bottle 1 DRP OPHTHALMIC (23:11)
[2023-09-23] VITALS (9 sets, daily range): BP systolic 101–136; BP diastolic 63–81; PULSE 70–81; RESP 12–19; TEMP 36.3–36.8; O2SAT 88–97
[2023-09-23 06:24] LABS: Absolute Lymphocyte Count 1.79 X10^3/uL (0.83-4.51); Absolute Neutrophil Count 3.1 X10^3/uL (2.0-7.7); Basophil# 0.01 X10^3/uL; Basophil% 0.2 % (0-1); Eosinophil# 0.05 X10^3/uL; Eosinophils% 0.9 % (0-5); Hematocrit 38.4 % (37-47); Hemoglobin 11.5 g/dL (12.0-15.0); Lymphocyte # 1.79 X10^3/ul (0.83-4.51); Lymphocyte % 31.6 % (19-41); Mean Corp Hgb Conc 29.9 g/dL (32-36); Mean Corpuscular Hgb 28.4 pg (27.0-32.0); Mean Corpuscular Volume 94.8 fL (81-99); Mean Platelet Vol. 10.7 fl (6.2-12.0); Monocyte# 0.66 X10^3/uL; Monocyte% 11.6 % (0-10); NRBC Flagged by Analyzer 0 % (0-5); Neutrophil # 3.14 X10^3/uL (2.7-7.7); Neutrophil % 55.3 % (47-70); Platelet Count 263 K/mm3 (150-450); RBC Distribution Width CV 15.1 % (11.6-14.6); RBC Distribution Width SD 52.8 fl (35.1-43.9); Red Blood Count 4.05 M/mm3 (4.2-5.4); White Blood Count 5.7 K/mm3 (4.4-11.0)
[2023-09-23 06:31] LABS: Allen Test Positive; Base Excess -1 mmol/L (-2 to +2); Bicarbonate 25.5 mmol/L (22-26); Blood Gas Specimen Type ART; Comment 12/8 12 40%; Mode Not entered; O2 Delivery Device BiPAP; PO2 102 mmHG (75-100); SITE L Radial; SO2 97 % (95-99); Total Carbon Dioxide 27 mmol/L; pCO2 52.2 mmHg (35-45)
[2023-09-23 06:39] LABS: Anion Gap 4 (5-15); BUN 48 mg/dL (7-18); BUN/Creat Ratio 29.1 RATIO (10-20); Calcium,Total 10.2 mg/dL (8.5-10.1); Chloride 108 mmol/L (98-107); Creatinine, Serum 1.65 mg/dL (0.55-1.02); EST Glomerular Filtration Rate 33 mL/min (>60); Est Glom Filt Rate - Afr Amer 40 mL/min (>60); Estimated Creatinine Clearance 24.62 ml/min; Glucose 89 mg/dL (74-106); Potassium 4.7 mmol/L (3.5-5.1); Sodium Level 139 mmol/L (136-145)
[2023-09-23 09:37] LABS: Bedside Glucose 75 mg/dL (74-106)
[2023-09-23] MEDS: Remdesivir 100 MG in 0.9% Normal Saline (250mL Bag) 230 ML 250 MG IV (10:49)
[2023-09-23] MEDS: Ursodiol 250 MG Tablet PO ×2 (10:53→20:49)
[2023-09-23] MEDS: dexAMETHasone 4 MG Tablet 6 MG PO (10:53)
[2023-09-23] MEDS: APIXABAN 5 MG TABLET 10 MG PO ×2 (10:53→20:50)
[2023-09-23] MEDS: Loratadine 10 MG Tablet PO (10:54)
[2023-09-23] MEDS: Ezetimibe 10 MG Tablet PO (10:54)
[2023-09-23] MEDS: Pregabalin 75 MG Capsule 150 MG PO (10:54)
[2023-09-23] MEDS: Aspirin E.C. 81 MG Tablet PO (10:54)
[2023-09-23] MEDS: DULoxetine Hcl 60 MG Capsule 120 MG PO (10:55)
[2023-09-23] MEDS: Lisinopril 2.5 MG Tablet PO (10:55)
[2023-09-23] MEDS: Pantoprazole Sodium 40 MG Tablet PO ×2 (10:55→22:07)
[2023-09-23] MEDS: Empagliflozin 10 MG Tablet PO (10:57)
--- NOTE | 2023-09-23 11:06 | CT_ITS ---
We are attempting to reach an attending provider to discuss findings. An addendum with communication details will be sent when the communication is complete. STUDY: CTA HEAD AND NECK WITH CONTRAST REASON FOR EXAM: Female, 68 years old. Confusion, stroke like symptoms RADIATION DOSAGE (If Supplied By Facility): CTDIvol = ( 31.75 ) mGy, DLP = ( 1573.14 ) mGycm TECHNIQUE: CT angiography was performed with a multi-detector CT scanner. Data acquisition was obtained from the skull base through the vertex following intravenous administration of IV 75mL Isovue-370. MIP images were reconstructed from the axial data set. Post-processing of the angiographic images was performed, with multiplanar reformation and 3D reconstruction. Individualized dose optimization techniques were used for this CT. COMPARISON: No relevant priors. FINDINGS: Normal bilateral petrous carotid arteries. Normal right cavernous carotid artery with a normal supraclinoid bifurcation. Normal left cavernous carotid artery with a normal supraclinoid bifurcation. Normal right A1 segments of the anterior cerebral artery. Normal left A1 segments of the anterior cerebral artery. Normal intact anterior communicating artery (ACOM). Normal bilateral A2 segments of the anterior cerebral arteries. Normal right M1 and M2 segments of the middle cerebral arteries, with a normal M1 bifurcation. Normal left M1 and M2 segments of the middle cerebral arteries, with a normal M1 bifurcation. Normal right posterior communicating artery (PCOM). Normal left posterior communicating artery (PCOM). Normal bilateral vertebral arteries. Normal basilar artery with a normal basilar bifurcation. The visualized bilateral superior cerebellar (SCA) arteries are normal. Normal bilateral P1, P2 and visualized P3 segments of the posterior cerebral arteries. There is no demonstrated aneurysm of the [place]. There is no acute abnormality of the visualized brain. AORTIC ARCH: Normal visualized aortic arch. Normal origins of the brachiocephalic, left common carotid, and left subclavian arteries. There is moderate pulmonary embolism seen in the right upper chest. RIGHT CAROTID ARTERIES: Normal right common carotid artery (CCA). Normal right common carotid bulb. Normal origin of the right internal carotid (ICA) artery without a hemodynamically significant stenosis. Normal visualized cervical portion of the right internal carotid artery. Normal origin of the right external carotid artery (ECA). LEFT CAROTID ARTERIES: Normal left common carotid artery (CCA). Normal left common carotid bulb. Normal origin of the left internal carotid (ICA) artery without a hemodynamically significant stenosis. Normal visualized cervical portion of the left internal carotid artery. Normal origin of the left external carotid artery (ECA). VERTEBRAL ARTERIES: Normal bilateral vertebral arteries. CT/CTA Head AND Neck W/ Contrast IMPRESSION: Normal CTA Head and neck with contrast. Right pulmonary embolism. Electronically Signed: Javan Harkins MD at 12:32 EST ,
--- NOTE | 2023-09-23 11:06 | MRI_ITS ---
ACR Level 3 findings have been noted. An addendum which confirms receipt of the report will follow. EXAM: MR HEAD WITHOUT INTRAVENOUS CONTRAST CLINICAL INDICATION: stroke like symptoms TECHNIQUE: Multiplanar and multisequence MR images of the brain were obtained without intravenous contrast. COMPARISON: CT head and CT angiogram head, 09/22/2023. MRI brain, 06/23/2021. FINDINGS: BRAIN AND EXTRA-AXIAL SPACES: There is a very subtle focus of restricted diffusion measuring approximately 3 mm in the peripheral aspect of the posterior limb of the left internal capsule at the thalamocapsular junction suggesting a small acute infarct. Minimal periventricular T2 and T2 FLAIR hyperintensity is nonspecific although most commonly due to chronic microvascular ischemic changes. No intracranial hemorrhage or pathologic extra-axial fluid. No mass or mass effect. No shift of midline structures. No hydrocephalus. Patent basal cisterns. Posterior fossa structures are unremarkable. SELLA: No significant abnormality. Normal sella turcica, pituitary gland, infundibular stalk, optic chiasm and hypothalamus. AUDITORY SYSTEM: No significant abnormality. The internal auditory canals are patent. BONES/JOINTS: No significant abnormality. No discrete lytic or blastic abnormalities. SINUSES: Diffuse mucosal thickening in the paranasal sinuses with intermediate T2 hyperintense substance in the right maxillary sinus which is likely inspissated secretions rather than fungal elements. MASTOID AIR CELLS: Left mastoid effusion. ORBITS: Normal as visualized. Both globes, extraocular muscles, optic nerves and retrobulbar fat appear unremarkable. VASCULATURE: Normal as visualized. Normal flow voids in the major intracranial circulation. MRI/Brain without Contrast IMPRESSION: 1. There is a very subtle focus of restricted diffusion measuring approximately 3 mm in the peripheral aspect of the posterior limb of the left internal capsule at the thalamocapsular junction suggesting a small acute infarct. Correlate for associated neurologic sign/symptoms as this may indicate a tiny lacunar type infarct. 2. Mild chronic microvascular ischemic changes. Electronically Signed: Benjie Staples DO at 16:57 EST ,
--- NOTE | 2023-09-23 11:10 | PN_ITS ---
Subjective Subjective Patient seen and examined. She complains of double vision; she is a bit more coherent today. She was on BIPAP at time of review due to hypercapnia per ABG yesterday. Review of systems is otherwise negative. Objective Data Objective Data Vital Signs: Vital Signs Temp Pulse Resp BP Pulse Ox O2 Del Method O2 Flow Rate 97.7 F L 73 17 111/65 95 Nasal Cannula 2 09/23/23 10:30 09/23/23 10:30 09/23/23 10:30 09/23/23 10:30 09/23/23 10:30 09/23/23 10:45 09/23/23 10:45 FiO2 40 09/23/23 05:34 Oxygen Flow Rate (L/min) [ 2 AMBULATING with Oxygen #1] Oxygen Flow Rate (L/min) [At 2 REST with Oxygen] Oxygen Flow Rate (L/min) 2 Oxygen Delivery Method Nasal Cannula Weight: 229 lb 8.019 oz Body Mass Index (BMI) 43.3 Intake & Output: Intake and Output for Last 24 Hours 09/21/23 09/22/23 09/23/23 23:59 23:59 23:59 Intake Total 1406.38 / 1406.38 666.12 / 666.12 Output Total 2500 / 2500 200 / 200 Balance -1093.62 / -1093.62 466.12 / 466.12 Lab / Micro Data 09/23/23 05:31 09/23/23 05:31 Labs: Laboratory Results - last 24 hr 09/22/23 13:45: POC Glucose 215 H 09/22/23 17:48: POC Glucose 162 H 09/22/23 22:43: POC Glucose 147 H 09/23/23 05:31: WBC 5.7, RBC 4.05 L, Hgb 11.5 L, Hct 38.4, MCV 94.8, MCH 28.4, MCHC 29.9 L, RDW Std Deviation 52.8 H, RDW Coeff of Paulo 15.1 H, Plt Count 263, MPV 10.7, Immature Gran % (Auto) 0.400, Neut % (Auto) 55.3, Lymph % (Auto) 31.6, [place] % (Auto) 11.6 H, Eos % (Auto) 0.9, Baso % (Auto) 0.2, Absolute Neuts (auto) 3.1, Absolute Lymphs (auto) 1.79, Nucleated RBC % 0, Sodium 139, Potassium 4.7, Chloride 108 H, Carbon Dioxide 27.0, Anion Gap 4 L, BUN 48 H, Creatinine 1.65 H, Estim Creat Clear Calc 24.62, Est GFR (MDRD) Af Amer 40 L, Est GFR (MDRD) Non-Af 33 L, BUN/Creatinine Ratio 29.1 H, Glucose 89, Calcium 10.2 H 09/23/23 09:16: POC Glucose 75 Micro: Microbiology 09/20/23 10:04 Blood Culture (Wb) - Anticubital Right Blood Culture - Preliminary No growth in 48 hours. 09/20/23 10:00 Blood Culture (Wb) - Anticubital Left Blood Culture - Preliminary No growth in 48 hours. 09/20/23 09:56 Nasal Secretion SARS-CoV-2 & FLU Antigen (Rapid) - Final SARS-CoV-2 (COVID 19) ABG Data ABG results: ABG 09/22/23 09/23/23 15:41 06:26 Specimen Type ART ART Sample Site L Radial L Radial pH 7.32 L 7.30 L Bicarbonate Actual 26.3 H 25.5 Total CO2 28 27 Base Excess 0 -1 O2 Saturation 93 L 97 O2 % 2.0 40.0 ABG pCO2 50.9 H 52.2 H ABG pO2 74 L 102 H Raphael Test Positive O2 Delivery Device Cannula BiPAP Vent Mode Not entered Not entered Clinical Comments 09/02 12 40% Radiography Diagnostic Testing: Radiology Impression Brain CT 09/22/23 13:31 IMPRESSION: No evidence of acute intracranial bleed, mass or ischemia. Electronically Signed: Christian Mccarthy DO at 14:41 EST , Physical Exam Const alert Constitutional Narrative: confused, General Appearance: cooperative and well developed Orientation / Consciousness: lethargic HEENT normocephalic, head/scalp atraumatic, moist oral mucous membranes and oropharynx normal Eyes PERRL and EOMs intact bilaterally Neck no lymphadenopathy, supple and no JVD Resp Resp Narrative: on 2 L of oxygen by nasal canula. diminished breath sounds bibasally, no wheezes or crackles. Cardio regular rate, regular rhythm, S1 normal heart sound, S2 normal heart sound and no murmurs GI normal to inspection, nondistended, normoactive bowel sounds, soft to palpation and non-tender Extremity normal capillary refill, no clubbing, cyanosis or edema and no calf tenderness General Extremity: no tenderness to palpation of joints or extremities Skin General Skin Exam: no breakdown Neuro CN's II-XII intact bilaterally Neuro Narrative: weak, lethargic, complains of double vision, has intermittent confusion. Motor Exam: general weakness Psych Psych Narrative: weak and lethargic Appearance: appropriate Assessment & Plan Assessment/Plan (1) Pulmonary emboli: PLAN: Plan #Acute hypoxic respiratory failure due to submassive PE with right ventricular strain * now on eliquis * On remdesivir and Decadron for COVID. * Troponins trended down. Elevated BNP also likely due to PE * 2D echo showed EF of 45 to 50% with mild left ventricular systolic dysfunction and mild global ventricular hypokinesis with mild right ventricular systolic dysfunction with mildly dilated right ventricle. * pulmonology was on board but has signed off * In light of the decreased EF and left ventricular systolic dysfunction, cardiology also consulted. Discussed with Dr. Melvin Tate the covering sane nurse and in light of patient having PE which could also explain his symptoms, recommendations for patient to follow-up with cardiology on outpatient basis. Cardiology recommended initiating patient on low-dose metoprolol so patient started on metoprolol 12.5 mg twice daily. She is already on lisinopril 2.5 mg daily. #Acute encephalopathy * Patient still remains a bit enlarged lethargic and complaining of double vision. ABG done yesterday showed elevated pCO2 so she was started on BiPAP. * CT of the brain done was negative for any acute intracranial pathology. However patient now complains of double vision and remains weak and debilitated and lethargic * Will get MRI of the brain to rule out a stroke definitely and also get CT of the head and neck. Neurology consulted. * Hold all sedative meds. * PT OT on board. Fall precautions. * #COVID-19 infection: As above. On remdesivir and decadron. Breathing treatment with bronchodilators. Titrate oxygen to maintain sats >90% #Submassive PE with right ventricular strain: As above #Type 2 diabetes mellitus on Lantus 40 units nightly. Insulin sliding scale. Accuchecks ACHS. Also on Jardiance. #Hypertension: On lisinopril 2.5 mg daily as well as metoprolol. Also on Trulicity. #Recent diagnosis of gout: On prednisone and oxycodone. Hold oxycodone and dc prednisone also. #History of headaches: Has a history of migraines. On rimegapant. #Depression: On amitriptyline and buspirone DVT prophylaxis: On eliquis CODE STATUS: Full code * Total time spent on evaluation and management of patient, reviewing chart, discussing plan with patient, discussion with nursing and ancillary staff as well as documentation:33 mins Charges/Coding Visit Charges Inpatient E&M: 57151 Subs Hosp L2
[2023-09-23] MEDS: 0.9% Saline Lock 10 ML Syringe IV ×3 (12:46→20:51)
[2023-09-23] MEDS: Cholestyramine/Sucrose 4 GM/PACKET PO (13:12)
[2023-09-23 13:32] LABS: Bedside Glucose 53 mg/dL (74-106)
[2023-09-23 13:32] LABS: Bedside Glucose 86 mg/dL (74-106)
--- NOTE | 2023-09-23 13:54 | NEURO.CONS ---
Assessment and Plan: Neuro Assessment/Plan YVES NIÑO is a 68 F with a past medical history of PE and COVID on anticaogulation, being evaluated by Teleneurology for sudden AMS yesterday when previously she was stable. No clear medications that were given. History concerning for seizure vs stroke/TIA. Exam is largely nonfocal - has dysarthria and delirium but not clearly focal symptoms. Ddx includes transient seizure, cerebrovascular event. Cannot rule out new infection but unlikely given her improvement on her own Plan: - MRI Brain when possible - repeat UA if above is normal - delirium precautions. I personally attended this patient and spent a total time of 30minutes evaluating this patient including clinical assessment, review of chart, medical history imaging, and determining appropriate treatment and workup. HPI Consult Data Date of Consult: 09/23/23 HPI Narrative HPI Narrative: YVES NIÑO, is a 68 F who presents with acute respiratory failure. Acute hypoxic respiratory failure due to submassive PE with right ventricular strain Remains on heparin drip. Down to 4 L of oxygen. On remdesivir and Decadron for COVID. Troponins trended down. Elevated BNP also likely due to PE 2D echo showed EF of 45 to 50% with mild left ventricular systolic dysfunction and mild global ventricular hypokinesis with mild right ventricular systolic dysfunction with mildly dilated right ventricle. On heparin drip. pulmonology consulted In light of the decreased EF and left ventricular systolic dysfunction, cardiology also consulted. Dr. Elliott Tate informed by phone #COVID-19 infection: As above. Start on remdesivir and decadron. Breathing treatment with bronchodilators. Titrate oxygen to maintain sats >90% Initially admitted 09/20 with SOB. She was planned for discharge 09/22, but per note:Patient was initially lethargic this morning but during my review she was able to wake up and talk to me. However patient was noted to be even more lethargic and less responsive. I was contacted by case management in light of her persistent lethargy and weakness. Discharge plans therefore canceled. Neurologic History Pt is feeling better today, woke up aroudn 10am this morning. Slept all day yesterday. She feels improved but still a little confussed. [facility] Medical History Abnormal thyroid function test Anemia Anxiety Anxiety and depression Arthritis Back pain Bilateral lower extremity edema Blackout Chronic neck and back pain CKD (chronic kidney disease), stage III CPAP (continuous positive airway pressure) dependence Depression Diabetes Dietary restriction Difficulty balancing when standing Difficulty swallowing Dizziness Essential hypertension Fatigue Fatty liver Fibromyalgia Fibrosis of liver Flu vaccine need GERD (gastroesophageal reflux disease) Glaucoma Gout Hematuria High cholesterol History of echocardiogram History of pain when walking History of renal disease History of stress test History of thyroid nodule Hx of phlebitis Hyperlipidemia Insomnia Insulin dependent diabetes mellitus Leg cramps Limb weakness Liver disease Loss of hearing Lyme disease Macular degeneration Migraine headache Morbid obesity Myositis Non-smoker Obesity BENTLEY on CPAP Osteoporosis Polymyositis Restless legs Sensorineural hearing loss of both ears Shoulder pain Sinusitis Type 2 diabetes mellitus Vitamin D deficiency Wears glasses Home Medications CPAP #1 ea 09/24/20 [History Last Taken Unknown] aspirin 81 mg tablet,delayed release 81 mg PO DAILY heart health 09/24/20 [History Last Taken Unknown] blood pressure monitor (Blood Pressure Kit) #1 ea 09/24/20 [History Last Taken Unknown] blood sugar diagnostic (Accu-Chek Christi Plus test strips) #10 ea 09/24/20 [History Last Taken Unknown] blood-glucose meter #1 ea 09/24/20 [History Last Taken Unknown] lancets (Accu-Chek Softclix Lancets) #100 ea 09/24/20 [History Last Taken Unknown] vit C,E,zinc,Vn-jvhnz-9-lutein-zeaxanthin 250 mg-2.5 mg-0.5 mg capsule 1 cap PO DAILY vitamin 09/24/20 [History Last Taken Unknown] latanoprost 0.005 % eye drops 1 drp ophthalmic (eye) PRN PRN MACULAR DEGENRATION 02/24/21 [History Last Taken Unknown] simethicone 80 mg chewable tablet 80 mg PO 4X/DAY PRN Flatulence #30 tabs 12/07/21 [Rx Last Taken Unknown] vitamin E 268 mg (400 unit) capsule 800 unit PO DAILY vitamin #60 caps 02/08/22 [Rx Last Taken Unknown] Bilateral wrist splints #2 ea 06/07/22 [Rx Last Taken Unknown] Trulicity 4.5 mg/0.5 mL subcutaneous pen injector (dulaglutide) 4.5 mg (0.5 mL) subcut QWEEK diabetes #2 mL 11/01/22 [Rx Last Taken Unknown] pen needle, diabetic 32 gauge x 1/4 (Novofine 32) #200 ea 07/27/22 [Rx Last Taken Unknown] cholestyramine (with sugar) 4 gram oral powder 4 g PO DAILY digestion #348.6 grams 08/12/22 [Rx Last Taken Unknown] fluticasone propionate 50 mcg/actuation nasal spray,suspension 2 spray intranasal PRN PRN Nasal Congestion 09/06/22 [History Last Taken Unknown] ursodiol 250 mg tablet See Rx Instructions .Route .COMPLEX gallstones #180 tabs 10/14/22 [Rx Last Taken Unknown] lisinopril 2.5 mg tablet See Rx Instructions .Route .COMPLEX blood pressure #90 TABLETS 10/26/22 [Rx Last Taken Unknown] pantoprazole 40 mg tablet,delayed release 40 mg PO BID reflux #180 tabs 01/04/23 [Rx Last Taken Unknown] ezetimibe 10 mg tablet (Zetia) 10 mg PO DAILY #60 tabs 02/28/23 [Rx Last Taken Unknown] insulin lispro 100 unit/mL subcutaneous pen (Humalog KwikPen (U-100) Insulin) 12 unit subcut TID 02/28/23 [History Last Taken Unknown] Jardiance 10 mg tablet (empagliflozin) 10 mg PO DAILY #30 tabs 03/14/23 [Rx Last Taken Unknown] denosumab 60 mg/mL subcutaneous syringe (Prolia) 60 mg subcut [id number] bone health #1 mL 03/17/23 [Rx Last Taken Unknown] insulin degludec 100 unit/mL (3 mL) subcutaneous pen (Tresiba FlexTouch U-100 insulin) 40 unit (0.4 mL) subcut QHS #36 mL 07/11/23 [Rx Last Taken Unknown] duloxetine 60 mg capsule,delayed release See Rx Instructions .Route .COMPLEX #180 caps 08/01/23 [Rx Last Taken Unknown] cholecalciferol (vitamin D3) 1,250 mcg (50,000 unit) capsule 1,250 mcg PO QWEEK vitamin #30 caps 08/22/23 [Rx Last Taken Unknown] amitriptyline 100 mg tablet 200 mg (2 x 100 mg) PO QHS sleep #180 tabs 08/23/23 [Rx Last Taken Unknown] buspirone 10 mg tablet 10 mg PO TID mental health #270 tabs 08/23/23 [Rx Last Taken Unknown] cyclobenzaprine 10 mg tablet 5 - 10 mg (0.5 - 1 x 10 mg) PO TID PRN muscle spasm #270 tabs 08/23/23 [Rx Last Taken Unknown] loratadine 10 mg tablet 10 mg PO DAILY allergies #90 tabs 08/23/23 [Rx Last Taken Unknown] pregabalin 150 mg capsule 150 mg PO BID pain #180 caps 08/23/23 [Rx Last Taken Unknown] rimegepant 75 mg disintegrating tablet (Nurtec ODT) 75 mg PO DAILY PRN migraine headache #8 tabs 08/23/23 [Rx Last Taken Unknown] albuterol sulfate 90 mcg/actuation aerosol inhaler (Ventolin HFA) 1 - 2 puff inhalation Q4H PRN PRN Wheezing #1 inh 09/11/23 [Rx Last Taken Unknown] oxycodone-acetaminophen 5 mg-325 mg tablet 1 tab PO Q6H PRN PRN Pain 3 days #12 TABLETS 09/13/23 [Rx Last Taken Unknown] apixaban 5 mg (74 tabs) tablets in a dose pack ([employer] DVT-PE Treat 30D Start) 5 mg PO BID #74 tabs 09/22/23 [Rx Last Taken Unknown] dexamethasone 6 mg tablet 6 mg PO DAILY #7 tabs 09/22/23 [Rx Last Taken Unknown] metoprolol tartrate 25 mg tablet 12.5 mg (1/2 x 25 mg) PO BID #30 tabs 09/22/23 [Rx Last Taken Unknown] Allergy/AdvReac Type Severity Reaction Status Date / Time saliva substitute Allergy Severe Angioedema Verified 09/20/23 09:31 combination no.9 [From [facility] gemfibrozil AdvReac Severe Myalgia Verified 09/20/23 09:31 Funliua-TIP-YwZ Reductase AdvReac Severe muscle pain Verified 09/20/23 09:31 Inhibitor Family History Brother Diabetes Mother Diabetes Heart disease Hypertension Grandmother Diabetes Sister Diabetes Heart disease Hypertension Thyroid disorder Father Kidney disease Grandfather Kidney disease Surgical History H/O: hysterectomy History of bilateral knee arthroplasty History of cholecystectomy History of esophagogastroduodenoscopy (EGD) Hx of colonoscopy Social History Smoking Status: Unknown if ever smoked second hand exposure: No alcohol intake: never substance use type: does not use yessenia/protestant: L[employer]-Day seatbelt use: always Vital Signs Vital Signs Vital Signs: 09/22/23 14:00 09/22/23 15:20 09/22/23 16:34 Temperature 97.9 F Temperature Source Oral Pulse Rate 76 74 Respiratory Rate 16 22 H Respiratory Effort Normal Non-Labored Respiratory Depth Normal Respiratory Pattern Normal Normal Blood Pressure 108/75 Blood Pressure Mean 86 Blood Pressure Source Monitor Blood Pressure Position Semi-Fowlers Blood Pressure Location Right Arm Pulse Ox 94 97 Oxygen Delivery Method Nasal Cannula Nasal Cannula Oxygen Flow Rate (L/min) 2 2 Fraction of Inspired Oxygen (FIO2) 40 09/22/23 21:01 09/22/23 23:05 09/22/23 23:40 Temperature 98.0 F Temperature Source Oral Pulse Rate 73 Respiratory Rate 16 Respiratory Effort Respiratory Depth Respiratory Pattern Blood Pressure 110/55 L Blood Pressure Mean 73 Blood Pressure Source Blood Pressure Position Blood Pressure Location Pulse Ox 94 95 98 Oxygen Delivery Method Nasal Cannula Nasal Cannula CPAP Oxygen Flow Rate (L/min) 2 2 Fraction of Inspired Oxygen (FIO2) 40 09/22/23 22:00 09/22/23 23:42 09/23/23 04:01 Temperature Temperature Source Pulse Rate 80 70 Respiratory Rate 20 H 14 Respiratory Effort Normal Non-Labored Respiratory Depth Normal Respiratory Pattern Normal Normal Normal Blood Pressure Blood Pressure Mean Blood Pressure Source Blood Pressure Position Blood Pressure Location Pulse Ox 99 97 Oxygen Delivery Method Nasal Cannula Oxygen Flow Rate (L/min) 2 Fraction of Inspired Oxygen (FIO2) 40 40 09/23/23 05:34 09/23/23 06:00 09/23/23 07:38 Temperature 98.2 F Temperature Source Oral Pulse Rate 71 Respiratory Rate 16 Respiratory Effort Normal Non-Labored Respiratory Depth Normal Respiratory Pattern Normal Blood Pressure 113/81 H Blood Pressure Mean 91 Blood Pressure Source Blood Pressure Position Blood Pressure Location Pulse Ox 97 94 Oxygen Delivery Method Bi-pap Bi-pap Nasal Cannula Oxygen Flow Rate (L/min) 2 Fraction of Inspired Oxygen (FIO2) 40 09/23/23 09:20 09/23/23 09:25 09/23/23 10:30 Temperature 97.7 F L Temperature Source Oral Pulse Rate 73 Respiratory Rate 17 Respiratory Effort Respiratory Depth Respiratory Pattern Blood Pressure 111/65 Blood Pressure Mean 80 Blood Pressure Source Monitor Blood Pressure Position Semi-Fowlers Blood Pressure Location Right Forearm Pulse Ox 88 94 95 Oxygen Delivery Method Room Air Nasal Cannula Nasal Cannula Oxygen Flow Rate (L/min) 2 2 Fraction of Inspired Oxygen (FIO2) 09/23/23 10:45 Temperature Temperature Source Pulse Rate Respiratory Rate Respiratory Effort Normal Non-Labored Respiratory Depth Normal Respiratory Pattern Normal Blood Pressure Blood Pressure Mean Blood Pressure Source Blood Pressure Position Blood Pressure Location Pulse Ox Oxygen Delivery Method Nasal Cannula Oxygen Flow Rate (L/min) 2 Fraction of Inspired Oxygen (FIO2) Weight Weight: 104.1 kg Body Mass Index (BMI) 43.3 NIHSS NIHSS Nursing Documentation NIHSS Nursing Documentation: NIHSS: Ischemic Stroke/TIA Start: 09/23/23 11:25 Freq: Q4H Status: Active Protocol: Activity Type Activity Date Activity User E-sign Co-sign Detail Recorded Client Recorded Date Recorded By Document 09/23/23 11:25 Desktop 09/23/23 11:37 09/23/23 11:25 NIH Stroke Scale [NIHSS] A score of 0 is normal or asymptomatic . Total possible score is 42. Inpatient: RN or Physician to activate a stroke alert for onset of new stroke symptoms or with NIHSS increase >/= 3 points. Following change in neurological status, NIHSS will be performed per physician order or more frequently PRN. -1a. Level of Consciousness Alert; keenly responsive -1b. LOC Questions Answers one question correctly. -1c. LOC Commands Performs both tasks correctly . -2. Best Gaze Normal -3. Visual No visual loss -4. Facial Palsy Normal symmetrical movements -5a. Left Arm No drift; arm holds 90 (or 45 ) degrees for full 10 seconds -5b. Right Arm No drift; arm holds 90 (or 45 ) degrees for full 10 seconds -6a. Left Leg No drift; leg holds 30-degree position for full 5 seconds -6b. Right Leg No drift; leg holds 30-degree position for full 5 seconds -7. Limb Ataxia Present in 1 limb -8. Sensory Normal; no sensory loss -9. Best Language No aphasia; normal -10. Dysarthria Normal -11. Extinction and Inattention No abnormality -Total 2 Query Text:A score of 0 is normal or asymptomatic. Total possible score is 42 . ED: Notify Physician for NIHSS increase by > / = 3 points. Inpatient: RN or Physician to activate a stroke alert for NIHSS increase of > / = 3 points. Coma Scale [Assess] -Eye Opening Spontaneous -Motor Obeys Commands -Verbal Oriented [Total] -Coma Scale Total 15 NIHSS 1a. Level of Consciousness: Alert; keenly responsive 1b. LOC Questions: Answers one question correctly. 1c. LOC Commands: Performs both tasks correctly. 2. Best Gaze: Normal 3. Visual: No visual loss 4. Facial Palsy: Normal symmetrical movements 5a. Left Arm: Drift; arm drifts downward but doesn?t hit the bed 5b. Right Arm: Drift; arm drifts downward but doesn?t hit the bed 6a. Left Leg: No drift; leg holds 30-degree position for full 5 seconds 6b. Right Leg: No drift; leg holds 30-degree position for full 5 seconds 7. Limb Ataxia: Absent 8. Sensory: Normal; no sensory loss 9. Best Language: No aphasia; normal 10. Dysarthria: [id number] dysarthria; 11. Extinction and Inattention: No abnormality Total: 4 Physical Exam Narrative -? General: Laying comfortably in bed; in no acute distress. -? HENT: Normal oropharynx and mucosa. Normal external appearance of ears and nose. Exophthalmos. -? Neck: Supple, no pain or tenderness -? CV:? No peripheral edema. -? Pulmonary:? Normal respiratory effort. -? Ext: No cyanosis, edema, or deformity -? Skin: No rash. Normal palpation of skin.? -? Musculoskeletal: full range of motion; no joint tenderness. Normal digits and nails by inspection. No clubbing. -? NEURO: -? Mental Status: The patient was alert, oriented to place and intermittently to time. Not oriented clearly to situation -? Language: speech is mildly dysarthric.? Naming, repetition, fluency, and comprehension intact. -? Cranial Nerves: EOMI, visual gardner full, no facial asymmetry, facial sensation intact, hearing intact, tongue midline -? Motor: poor attention and has drift b/l in both arms. b/l legs antigravity -? Tone: is normal and bulk is normal -? Sensation- Intact to light touch bilaterally -? Coordination: No dysmetria on [id number], finger follow finger or [id number]-wgsq-[id number]. -? Gait- deferred Lab / Micro Data 09/23/23 05:31 09/23/23 05:31 Labs: Laboratory Results - last 24 hr 09/22/23 13:45: POC Glucose 215 H 09/22/23 17:48: POC Glucose 162 H 09/22/23 22:43: POC Glucose 147 H 09/23/23 05:31: WBC 5.7, RBC 4.05 L, Hgb 11.5 L, Hct 38.4, MCV 94.8, MCH 28.4, MCHC 29.9 L, RDW Std Deviation 52.8 H, RDW Coeff of Paulo 15.1 H, Plt Count 263, MPV 10.7, Immature Gran % (Auto) 0.400, Neut % (Auto) 55.3, Lymph % (Auto) 31.6, Nicollet % (Auto) 11.6 H, Eos % (Auto) 0.9, Baso % (Auto) 0.2, Absolute Neuts (auto) 3.1, Absolute Lymphs (auto) 1.79, Nucleated RBC % 0, Sodium 139, Potassium 4.7, Chloride 108 H, Carbon Dioxide 27.0, Anion Gap 4 L, BUN 48 H, Creatinine 1.65 H, Estim Creat Clear Calc 24.62, Est GFR (MDRD) Af Amer 40 L, Est GFR (MDRD) Non-Af 33 L, BUN/Creatinine Ratio 29.1 H, Glucose 89, Calcium 10.2 H 09/23/23 09:16: POC Glucose 75 09/23/23 12:40: POC Glucose 53 L 09/23/23 13:11: POC Glucose 86 Micro: Microbiology 09/23/23 12:38 Stool Clostridioides difficile (PCR) - Final 09/20/23 10:04 Blood Culture (Wb) - Anticubital Right Blood Culture - Preliminary No growth in 48 hours. 09/20/23 10:00 Blood Culture (Wb) - Anticubital Left Blood Culture - Preliminary No growth in 48 hours. ABG Data ABG results: ABG 09/22/23 09/23/23 15:41 06:26 Specimen Type ART ART Sample Site L Radial L Radial pH 7.32 L 7.30 L Bicarbonate Actual 26.3 H 25.5 Total CO2 28 27 Base Excess 0 -1 O2 Saturation 93 L 97 O2 % 2.0 40.0 ABG pCO2 50.9 H 52.2 H ABG pO2 74 L 102 H Raphael Test Positive O2 Delivery Device Cannula BiPAP Vent Mode Not entered Not entered Clinical Comments 09/02 12 40% Imagaing Radiology Impression Brain CT 09/22/23 13:31 IMPRESSION: No evidence of acute intracranial bleed, mass or ischemia. Electronically Signed: Christian Mccarthy DO at 14:41 EST , Head/Neck CTA 09/23/23 11:06 IMPRESSION: Normal CTA Head and neck with contrast. Right pulmonary embolism. Electronically Signed: Javan Harkins MD at 12:32 EST , ADDENDUM: 09/23/23 1243 IMPRESSION: Normal CTA Head and neck with contrast. Right pulmonary embolism. N.B. : The above Results were Read Back by Javan Harkins MD to Elpidio Avilez RN, and understanding confirmed on 09/23/2023 12:36:40 (ET). Electronically Signed: Javan Harkins MD at 12:32 EST , Active Medications Active Medications Active Medications: Current Medications Generic Name Dose Route Start Last Admin Trade Name Freq PRN Reason Stop Dose Admin Acetaminophen 650 mg 09/20/23 14:05 Acetaminophen 325 Mg Tablet PO Q6H PRN PRN Pain 1-10 Or Fever >100.7 Amitriptyline HCl 200 mg 09/20/23 22:00 09/22/23 23:08 Amitriptyline 100 Mg Tablet PO 200 mg QHS KATE Administration Apixaban 10 mg 09/22/23 10:00 09/23/23 10:53 Apixaban 5 Mg Tablet PO 10 mg BID KATE Administration Aspirin 81 mg 09/21/23 10:00 09/23/23 10:54 Aspirin E.C. 81 Mg Tablet PO 81 mg DAILY KATE Administration Buspirone HCl 10 mg 09/20/23 22:00 09/23/23 06:52 Buspirone 5 Mg Tablet PO Not Given TID KATE Cholestyramine Resin 4 gm 09/21/23 12:00 09/23/23 13:12 Cholestyramine/Sucrose 4 Gm/Packet PO 4 gm DAILY@1200 KATE Administration Dexamethasone 6 mg 09/20/23 14:05 09/23/23 10:53 Dexamethasone 4 Mg Tablet PO 6 mg DAILY KATE Administration Dextrose 0 gm 09/20/23 14:05 Dextrose 50%-Water 25 Gm/50 Ml Disp.Syrin IV X1 PRN HYPOGLYCEMIA Protocol Duloxetine HCl 120 mg 09/21/23 10:00 09/23/23 10:55 Duloxetine Hcl 60 Mg Capsule PO 120 mg DAILY KATE Administration Ezetimibe 10 mg 09/21/23 10:00 09/23/23 10:54 Ezetimibe 10 Mg Tablet PO 10 mg DAILY KATE Administration Empagliflozin 10 mg 09/21/23 10:00 09/23/23 10:57 Empagliflozin 10 Mg Tablet PO 10 mg DAILY KATE Administration Fluticasone Propionate 2 spray 09/21/23 10:00 Fluticasone 0.05% 1 Forman Nasal.Sry NASAL DAILY PRN NASAL CONGESTION Glucagon 1 mg 09/20/23 14:05 Glucagon 1 Mg/Ml Syringe IM X1 PRN HYPOGLYCEMIA Remdesivir 100 mg/ Sodium 250 mls @ 250 mls/hr 09/21/23 10:00 09/23/23 10:49 Chloride IV 09/24/23 10:59 250 mls/hr DAILY [facility] Administration Protocol Insulin Glargine 40 unit 09/20/23 22:00 09/22/23 23:10 Insulin Glargine-Yfgn 100 Unit/Ml Pen SC 40 unit QHS KATE Administration Insulin Human Lispro 0 unit 09/20/23 16:00 09/23/23 12:47 Insulin Lispro 100 Unit/Ml Insuln.Pen SC Not Given ACHS [facility] Protocol Insulin Human Lispro 12 unit 09/20/23 17:00 09/23/23 12:47 Insulin Lispro 100 Unit/Ml Insuln.Pen SC Not Given TIDCM [facility] Latanoprost 1 drp 09/21/23 22:00 09/22/23 23:11 Latanoprost 0.005% 1 Bottle OPHTHALMIC 1 drp QHS [facility] Administration Lisinopril 2.5 mg 09/21/23 10:00 09/23/23 10:55 Lisinopril 2.5 Mg Tablet PO 2.5 mg DAILY [facility] Administration Protocol Loratadine 10 mg 09/21/23 10:00 09/23/23 10:54 Loratadine 10 Mg Tablet PO 10 mg DAILY [facility] Administration Metoprolol Tartrate 12.5 mg 09/23/23 22:00 Metoprolol Tartrate 25 Mg Tablet PO BID [facility] Protocol Nitroglycerin 0.4 mg 09/20/23 14:05 Nitroglycerin (Inpatient Use) 0.4 Mg Tab.Subl SL Q5M PRN CARDIAC/CHEST PAIN Ondansetron HCl 4 mg 09/20/23 14:05 Ondansetron 4 Mg/2 Ml Vial IV Q8H PRN PRN NAUSEA/VOMITING Pantoprazole Sodium 40 mg 09/20/23 22:00 09/23/23 10:55 Pantoprazole Sodium 40 Mg Tablet PO 40 mg BID [facility] Administration Simethicone 80 mg 09/20/23 14:53 Simethicone 80 Mg Chewable Tablet PO 4X/DAY PRN Flatulence Sodium Chloride 10 - 40 ml 09/20/23 14:21 09/23/23 12:46 0.9% Saline Lock 10 Ml Syringe IV 10 ml UD PRN Administration SALINE FLUSH Ursodiol 250 mg 09/20/23 22:00 09/23/23 10:53 Ursodiol 250 Mg Tablet PO 250 mg BID KATE Administration
--- NOTE | 2023-09-23 15:38 | NURSING ---
NIHSS not done on time due to patient being off floor for MRI of Brain. NIHSS will be completed when patient returns to the floor.
[2023-09-23] MEDS: busPIRone 5 MG Tablet 10 MG PO ×2 (16:28→20:49)
[2023-09-23 16:54] LABS: Bedside Glucose 136 mg/dL (74-106)
[2023-09-23] MEDS: Latanoprost 0.005% 1 Bottle 1 DRP OPHTHALMIC (20:49)
[2023-09-23] MEDS: Metoprolol Tartrate 25 MG Tablet 12.5 MG PO (20:49)
[2023-09-23] MEDS: Amitriptyline 100 MG Tablet 200 MG PO (20:50)
[2023-09-23] MEDS: Insulin Glargine-YFGN 100 UNIT/ML Pen 40 UNIT SC (22:07)
[2023-09-23 22:27] LABS: Bedside Glucose 126 mg/dL (74-106)
[2023-09-24] VITALS (15 sets, daily range): BP systolic 90–128; BP diastolic 60–89; PULSE 67–80; RESP 12–18; TEMP 36.3–36.7; O2SAT 93–100; BMI 43.3
[2023-09-24] MEDS: busPIRone 5 MG Tablet 10 MG PO ×3 (05:10→22:37)
[2023-09-24 08:32] LABS: Absolute Lymphocyte Count 2.37 X10^3/uL (0.83-4.51); Absolute Neutrophil Count 3.6 X10^3/uL (2.0-7.7); Basophil# 0.01 X10^3/uL; Basophil% 0.1 % (0-1); Eosinophil# 0.23 X10^3/uL; Eosinophils% 3.4 % (0-5); Hemoglobin 11.4 g/dL (12.0-15.0); Lymphocyte # 2.37 X10^3/ul (0.83-4.51); Lymphocyte % 34.6 % (19-41); Mean Corp Hgb Conc 30.8 g/dL (32-36); Mean Corpuscular Hgb 29.2 pg (27.0-32.0); Mean Corpuscular Volume 94.9 fL (81-99); Monocyte% 8.8 % (0-10); NRBC Flagged by Analyzer 0 % (0-5); Neutrophil % 52.7 % (47-70); Platelet Count 260 K/mm3 (150-450); RBC Distribution Width CV 15.1 % (11.6-14.6); RBC Distribution Width SD 53.1 fl (35.1-43.9); White Blood Count 6.8 K/mm3 (4.4-11.0)
[2023-09-24 08:47] LABS: Bedside Glucose 63 mg/dL (74-106)
[2023-09-24 08:48] LABS: Anion Gap 4 (5-15); BUN 50 mg/dL (7-18); BUN/Creat Ratio 32.9 RATIO (10-20); Calcium,Total 10.2 mg/dL (8.5-10.1); Chloride 108 mmol/L (98-107); Creatinine, Serum 1.52 mg/dL (0.55-1.02); EST Glomerular Filtration Rate 36 mL/min (>60); Est Glom Filt Rate - Afr Amer 44 mL/min (>60); Estimated Creatinine Clearance 26.73 ml/min; Glucose 63 mg/dL (74-106); Potassium 4.9 mmol/L (3.5-5.1); Sodium Level 137 mmol/L (136-145)
[2023-09-24] MEDS: Remdesivir 100 MG in 0.9% Normal Saline (250mL Bag) 230 ML 250 MG IV (10:53)
[2023-09-24] MEDS: APIXABAN 5 MG TABLET 10 MG PO ×2 (10:55→22:39)
[2023-09-24] MEDS: Ursodiol 250 MG Tablet PO ×2 (10:55→22:38)
[2023-09-24] MEDS: Ezetimibe 10 MG Tablet PO (10:55)
[2023-09-24] MEDS: dexAMETHasone 4 MG Tablet 6 MG PO (10:56)
[2023-09-24] MEDS: Pantoprazole Sodium 40 MG Tablet PO ×2 (10:56→22:39)
[2023-09-24] MEDS: Loratadine 10 MG Tablet PO (10:56)
[2023-09-24] MEDS: DULoxetine Hcl 60 MG Capsule 120 MG PO (10:56)
[2023-09-24] MEDS: Aspirin E.C. 81 MG Tablet PO (10:57)
[2023-09-24 11:22] LABS: Bedside Glucose 108 mg/dL (74-106)
--- NOTE | 2023-09-24 11:30 | PCM.PROGNOTE ---
Subjective Subjective Patient seen and examined. She was more alert today. She still complained of blurring of her vision. She does not have a glasses here and says she does not have anyone who can bring her glasses in. She still feels very weak and is open to placement for short-term rehab. Of note MRI of the brain done yesterday on account of confusion was positive for stroke. She remains on Eliquis and aspirin. Objective Data Objective Data Vital Signs: Vital Signs Temp Pulse Resp BP Pulse Ox O2 Del Method O2 Flow Rate 97.9 F 71 18 90/60 96 Nasal Cannula 2 09/24/23 08:15 09/24/23 08:15 09/24/23 08:15 09/24/23 10:49 09/24/23 08:15 09/24/23 10:00 09/24/23 10:00 FiO2 30 09/24/23 04:05 Oxygen Flow Rate (L/min) [ 2 AMBULATING with Oxygen #1] Oxygen Flow Rate (L/min) [At 2 REST with Oxygen] Oxygen Flow Rate (L/min) 2 Oxygen Delivery Method Nasal Cannula Weight: 229 lb 8.019 oz Body Mass Index (BMI) 43.3 Intake & Output: Intake and Output for Last 24 Hours 09/22/23 09/23/23 09/24/23 23:59 23:59 23:59 Intake Total 666.12 / 666.12 250 / 250 Output Total 200 / 200 900 / 900 600 / 600 Balance 466.12 / 466.12 -650 / -650 -600 / -600 Lab / Micro Data 09/24/23 07:13 09/24/23 07:13 Labs: Laboratory Results - last 24 hr 09/23/23 12:40: POC Glucose 53 L 09/23/23 13:11: POC Glucose 86 09/23/23 16:13: POC Glucose 136 H 09/23/23 22:05: POC Glucose 126 H 09/24/23 07:13: WBC 6.8, RBC 3.90 L, Hgb 11.4 L, Hct 37.0, MCV 94.9, MCH 29.2, MCHC 30.8 L, RDW Std Deviation 53.1 H, RDW Coeff of Paulo 15.1 H, Plt Count 260, MPV 11.0, Immature Gran % (Auto) 0.400, Neut % (Auto) 52.7, Lymph % (Auto) 34.6, Dawes % (Auto) 8.8, Eos % (Auto) 3.4, Baso % (Auto) 0.1, Absolute Neuts (auto) 3.6, Absolute Lymphs (auto) 2.37, Nucleated RBC % 0, Sodium 137, Potassium 4.9, Chloride 108 H, Carbon Dioxide 25.0, Anion Gap 4 L, BUN 50 H, Creatinine 1.52 H, Estim Creat Clear Calc 26.73, Est GFR (MDRD) Af Amer 44 L, Est GFR (MDRD) Non-Af 36 L, BUN/Creatinine Ratio 32.9 H, Glucose 63 L, Calcium 10.2 H 09/24/23 08:11: POC Glucose 63 L 09/24/23 11:02: POC Glucose 108 H Micro: Microbiology 09/23/23 12:38 Stool Clostridioides difficile (PCR) - Final 09/20/23 10:04 Blood Culture (Wb) - Anticubital Right Blood Culture - Preliminary No growth in 48 hours. 09/20/23 10:00 Blood Culture (Wb) - Anticubital Left Blood Culture - Preliminary No growth in 48 hours. 09/20/23 09:56 Nasal Secretion SARS-CoV-2 & FLU Antigen (Rapid) - Final SARS-CoV-2 (COVID 19) Radiography Diagnostic Testing: Radiology Impression Brain MRI 09/23/23 11:06 IMPRESSION: 1. There is a very subtle focus of restricted diffusion measuring approximately 3 mm in the peripheral aspect of the posterior limb of the left internal capsule at the thalamocapsular junction suggesting a small acute infarct. Correlate for associated neurologic sign/symptoms as this may indicate a tiny lacunar type infarct. 2. Mild chronic microvascular ischemic changes. Electronically Signed: Benjie Staples DO at 16:57 EST , ADDENDUM: 09/23/23 1310 IMPRESSION: 1. There is a very subtle focus of restricted diffusion measuring approximately 3 mm in the peripheral aspect of the posterior limb of the left internal capsule at the thalamocapsular junction suggesting a small acute infarct. Correlate for associated neurologic sign/symptoms as this may indicate a tiny lacunar type infarct. 2. Mild chronic microvascular ischemic changes. N.B. : Fatmata Nguyen RN, confirmed on 09/23/2023 17:26:23 (ET) that the healthcare facility has received the radiology report. Electronically Signed: Benjie Staples DO at 16:57 EST , Head/Neck CTA 09/23/23 11:06 IMPRESSION: Normal CTA Head and neck with contrast. Right pulmonary embolism. Electronically Signed: Javan Harkins MD at 12:32 EST , ADDENDUM: 09/23/23 1243 IMPRESSION: Normal CTA Head and neck with contrast. Right pulmonary embolism. N.B. : The above Results were Read Back by Javan Harkins MD to Elpidio Avilez RN, and understanding confirmed on 09/23/2023 12:36:40 (ET). Electronically Signed: Javan Harkins MD at 12:32 EST , Physical Exam Const alert, oriented x3 and no apparent distress Constitutional Narrative: more alert and communicative today. General Appearance: cooperative and well developed HEENT normocephalic, head/scalp atraumatic, moist oral mucous membranes and oropharynx normal Eyes PERRL and EOMs intact bilaterally Neck no lymphadenopathy, supple and no JVD Resp Resp Narrative: on 2 L of oxygen by nasal canula. diminished breath sounds bibasally, no wheezes or crackles. Cardio regular rate, regular rhythm, S1 normal heart sound, S2 normal heart sound and no murmurs GI normal to inspection, nondistended, normoactive bowel sounds, soft to palpation and non-tender Extremity normal capillary refill, no clubbing, cyanosis or edema and no calf tenderness General Extremity: no tenderness to palpation of joints or extremities Skin General Skin Exam: no breakdown Neuro CN's II-XII intact bilaterally, no focal motor deficits, no sensory deficits noted and deep tendon reflexes 2+ bilaterally Neuro Narrative: more alert and communicative today, though she still feels generally weak. Motor Exam: strength 5/5 throughout and general weakness Psych thought process normal, cooperative and affect normal Psych Narrative: weak and lethargic Mood & Affect: flat affect Assessment & Plan Assessment/Plan (1) Pulmonary emboli: PLAN: Plan #Acute hypoxic respiratory failure due to submassive PE with right ventricular strain now on eliquis On remdesivir and Decadron for COVID. Troponins trended down. Elevated BNP also likely due to PE 2D echo showed EF of 45 to 50% with mild left ventricular systolic dysfunction and mild global ventricular hypokinesis with mild right ventricular systolic dysfunction with mildly dilated right ventricle. pulmonology was on board but has signed off In light of the decreased EF and left ventricular systolic dysfunction, cardiology also consulted. Discussed with Dr. Melvin Tate the covering laborer salvage and in light of patient having PE which could also explain his symptoms, recommendations for patient to follow-up with cardiology on outpatient basis. Cardiology recommended initiating patient on low-dose metoprolol so patient started on metoprolol 12.5 mg twice daily. She is already on lisinopril 2.5 mg daily. #Acute encephalopathy due to acute CVA and medication Patient still remains a bit enlarged lethargic and complaining of double vision. ABG done yesterday showed elevated pCO2 so she was started on BiPAP. CT of the brain done was negative for any acute intracranial pathology. However patient now complains of double vision and remains weak and debilitated and lethargic CTA head and neck showed no acute intracranial pathology MRI of the brain showed very subtle focus of restricted diffusion measuring approximately 3 mm in the peripheral aspect of the posterior limb of the left internal capsule at the thalamocapsular junction suggesting a small acute infarct Currently on aspirin admitted to me. Unable to put on Plavix as well as she is on Eliquis and so this would constitute a high risk of bleeding. Not on statin due to allergies and muscle pain Hold all sedative meds. PT OT on board. Fall precautions. #COVID-19 infection: As above. On remdesivir and decadron. Breathing treatment with bronchodilators. Titrate oxygen to maintain sats >90% #Submassive PE with right ventricular strain: As above #Type 2 diabetes mellitus on Lantus 40 units nightly. Insulin sliding scale. Accuchecks ACHS. Also on Jardiance. #Hypertension: On lisinopril 2.5 mg daily as well as metoprolol. Also on Trulicity. #Recent diagnosis of gout: On prednisone and oxycodone. Prednisone DC'd and oxycodone on hold. #History of headaches: Has a history of migraines. On rimegapant. #Depression: On amitriptyline and buspirone DVT prophylaxis: On eliquis CODE STATUS: Full code Disposition: Patient still feeling very weak and lethargic so she is amenable to placement in acute rehab. Case management on board. Total time spent on evaluation and management of patient, reviewing chart, discussing plan with patient, discussion with nursing and ancillary staff as well as documentation:32 mins Charges/Coding Visit Charges Inpatient E&M: 63888 Subs Hosp L2
[2023-09-24] MEDS: Metoprolol Tartrate 25 MG Tablet 12.5 MG PO ×2 (12:34→22:41)
[2023-09-24] MEDS: Lisinopril 2.5 MG Tablet PO (12:35)
[2023-09-24] MEDS: Empagliflozin 10 MG Tablet PO (12:36)
[2023-09-24] MEDS: Cholestyramine/Sucrose 4 GM/PACKET PO (12:36)
[2023-09-24] MEDS: 0.9% Saline Lock 10 ML Syringe IV (12:36)
--- NOTE | 2023-09-24 12:50 | CASEMGMT ---
Social Work SW spoke w/pt in room in regard to discharge plan. Pt agreeable to going somewhere for rehab. SW gave pt list of prison facilities from [facility], in pt's insurance network, preferred geographic area, complete w/quality and resource use data. Pt would like to go to [facility], her significant other is there. SW explained will make referral, pt will be here through the weekend. Pt states understanding. SW to follow up w/referral Tuesday. NICOLASA Chavez
--- NOTE | 2023-09-24 12:55 | CASEMGMT ---
Social Work SW met w/pt, completed PHQ-9, pt scored a 6. Most symptoms due to medical issues and not being able to do what she normally does at present. However, pt does have depression at baseline. Pt does take medication. She has been in counseling in the past, not at present. Pt open to seeing someone when she goes to SNF, and in the community. SW added for pt to have counseling/psychology follow up to the SNF discharge instructions. NICOLASA Chavez
[2023-09-24 16:51] LABS: Bedside Glucose 85 mg/dL (74-106)
[2023-09-24] MEDS: Amitriptyline 100 MG Tablet 200 MG PO (22:37)
[2023-09-24] MEDS: Miconazole Nitrate 43 GM Bottle 1 APPLIC TOPICAL (22:40)
[2023-09-24] MEDS: Latanoprost 0.005% 1 Bottle 1 DRP OPHTHALMIC (22:45)
[2023-09-25] VITALS (12 sets, daily range): BP systolic 96–132; BP diastolic 73–99; PULSE 65–75; RESP 12–18; TEMP 36.4–36.7; O2SAT 92–99; BMI 43.3
[2023-09-25 00:30] LABS: Bedside Glucose 114 mg/dL (74-106)
[2023-09-25 05:57] LABS: Absolute Lymphocyte Count 2.74 X10^3/uL (0.83-4.51); Absolute Neutrophil Count 2.9 X10^3/uL (2.0-7.7); Basophil# 0.02 X10^3/uL; Basophil% 0.3 % (0-1); Eosinophil# 0.21 X10^3/uL; Eosinophils% 3.2 % (0-5); Hematocrit 37.1 % (37-47); Hemoglobin 11.4 g/dL (12.0-15.0); Lymphocyte # 2.74 X10^3/ul (0.83-4.51); Lymphocyte % 41.6 % (19-41); Mean Corp Hgb Conc 30.7 g/dL (32-36); Mean Corpuscular Hgb 28.8 pg (27.0-32.0); Mean Corpuscular Volume 93.7 fL (81-99); Mean Platelet Vol. 9.9 fl (6.2-12.0); Monocyte# 0.69 X10^3/uL; Monocyte% 10.5 % (0-10); NRBC Flagged by Analyzer 0 % (0-5); Neutrophil % 43.9 % (47-70); Platelet Count 277 K/mm3 (150-450); RBC Distribution Width CV 15.1 % (11.6-14.6); RBC Distribution Width SD 52.6 fl (35.1-43.9); Red Blood Count 3.96 M/mm3 (4.2-5.4); White Blood Count 6.6 K/mm3 (4.4-11.0)
[2023-09-25 06:15] LABS: Anion Gap 4 (5-15); BUN 54 mg/dL (7-18); BUN/Creat Ratio 32.7 RATIO (10-20); Calcium,Total 9.8 mg/dL (8.5-10.1); Chloride 109 mmol/L (98-107); Creatinine, Serum 1.65 mg/dL (0.55-1.02); EST Glomerular Filtration Rate 33 mL/min (>60); Est Glom Filt Rate - Afr Amer 40 mL/min (>60); Estimated Creatinine Clearance 24.62 ml/min; Glucose 83 mg/dL (74-106); Potassium 4.9 mmol/L (3.5-5.1); Sodium Level 139 mmol/L (136-145)
[2023-09-25] MEDS: busPIRone 5 MG Tablet 10 MG PO ×3 (06:34→22:42)
[2023-09-25 08:48] LABS: Bedside Glucose 64 mg/dL (74-106)
--- NOTE | 2023-09-25 10:25 | PN_ITS ---
Subjective Subjective Patient seen and examined. She was lethargic but arousable. She had no active complaints. She is on room air. She has remained hemodynamically stable. Objective Data Objective Data Vital Signs: Vital Signs Temp Pulse Resp BP Pulse Ox O2 Del Method O2 Flow Rate 97.8 F 65 16 124/77 H 93 Room Air 2 09/25/23 06:40 09/25/23 06:40 09/25/23 06:40 09/25/23 06:40 09/25/23 08:39 09/25/23 08:39 09/24/23 21:43 FiO2 30 09/25/23 01:32 Oxygen Flow Rate (L/min) [ 2 AMBULATING with Oxygen #1] Oxygen Flow Rate (L/min) [At 2 REST with Oxygen] Oxygen Flow Rate (L/min) 2 Oxygen Delivery Method Room Air Weight: 229 lb 8.019 oz Body Mass Index (BMI) 43.3 Intake & Output: Intake and Output for Last 24 Hours 09/23/23 09/24/23 09/25/23 23:59 23:59 23:59 Intake Total 250 / 250 250 / 250 Output Total 900 / 900 800 / 800 300 / 300 Balance -650 / -650 -550 / -550 -300 / -300 Lab / Micro Data 09/25/23 05:37 09/25/23 05:37 Labs: Laboratory Results - last 24 hr 09/24/23 11:02: POC Glucose 108 H 09/24/23 16:33: POC Glucose 85 09/24/23 22:35: POC Glucose 114 H 09/25/23 05:37: WBC 6.6, RBC 3.96 L, Hgb 11.4 L, Hct 37.1, MCV 93.7, MCH 28.8, MCHC 30.7 L, RDW Std Deviation 52.6 H, RDW Coeff of Paulo 15.1 H, Plt Count 277, MPV 9.9, Immature Gran % (Auto) 0.500, Neut % (Auto) 43.9 L, Lymph % (Auto) 41.6 H, Gage % (Auto) 10.5 H, Eos % (Auto) 3.2, Baso % (Auto) 0.3, Absolute Neuts (auto) 2.9, Absolute Lymphs (auto) 2.74, Nucleated RBC % 0, Sodium 139, Potassium 4.9, Chloride 109 H, Carbon Dioxide 26.0, Anion Gap 4 L, BUN 54 H, Creatinine 1.65 H, Estim Creat Clear Calc 24.62, Est GFR (MDRD) Af Amer 40 L, Est GFR (MDRD) Non-Af 33 L, BUN/Creatinine Ratio 32.7 H, Glucose 83, Calcium 9.8 09/25/23 08:24: POC Glucose 64 L Micro: Microbiology 09/23/23 12:38 Stool Clostridioides difficile (PCR) - Final 09/20/23 10:04 Blood Culture (Wb) - Anticubital Right Blood Culture - Preliminary No growth in 48 hours. 09/20/23 10:00 Blood Culture (Wb) - Anticubital Left Blood Culture - Preliminary No growth in 48 hours. 09/20/23 09:56 Nasal Secretion SARS-CoV-2 & FLU Antigen (Rapid) - Final SARS-CoV-2 (COVID 19) Physical Exam Const Constitutional Narrative: mildly lethargic. General Appearance: cooperative and well developed Orientation / Consciousness: lethargic HEENT normocephalic, head/scalp atraumatic, moist oral mucous membranes and oropharynx normal Eyes PERRL and EOMs intact bilaterally Neck no lymphadenopathy, supple and no JVD Resp Resp Narrative: on 2 L of oxygen by nasal canula. diminished breath sounds bibasally, no wheezes or crackles. Cardio regular rate, regular rhythm, S1 normal heart sound, S2 normal heart sound and no murmurs GI normal to inspection, nondistended, normoactive bowel sounds, soft to palpation and non-tender Extremity normal capillary refill, no clubbing, cyanosis or edema and no calf tenderness General Extremity: no tenderness to palpation of joints or extremities Skin General Skin Exam: no breakdown Neuro CN's II-XII intact bilaterally, no focal motor deficits, no sensory deficits noted and deep tendon reflexes 2+ bilaterally Neuro Narrative: lethargic Motor Exam: strength 5/5 throughout and general weakness Psych Psych Narrative: weak and lethargic Mood & Affect: flat affect Assessment & Plan Assessment/Plan (1) Pulmonary emboli: PLAN: Plan #Acute hypoxic respiratory failure due to submassive PE with right ventricular strain * now on eliquis * On remdesivir and Decadron for COVID. * Troponins trended down. Elevated BNP also likely due to PE * 2D echo showed EF of 45 to 50% with mild left ventricular systolic dysfunction and mild global ventricular hypokinesis with mild right ventricular systolic dysfunction with mildly dilated right ventricle. * pulmonology was on board but has signed off * In light of the decreased EF and left ventricular systolic dysfunction, cardiology also consulted. Discussed with Dr. Melvin Tate the covering clinical training specialist and in light of patient having PE which could also explain his symptoms, recommendations for patient to follow-up with cardiology on outpatient basis. Cardiology recommended initiating patient on low-dose metoprolol so patient started on metoprolol 12.5 mg twice daily. * She is already on lisinopril 2.5 mg daily. * #Acute encephalopathy due to acute CVA and medication * Patient still lethargic. ABG showed elevated pCO2 so she was started on BIPAP. On BIPAP prn. * CT of the brain done was negative for any acute intracranial pathology. * CTA head and neck showed no acute intracranial pathology * MRI of the brain showed very subtle focus of restricted diffusion measuring approximately 3 mm in the peripheral aspect of the posterior limb of the left internal capsule at the thalamocapsular junction suggesting a small acute infarct * Currently on aspirin. Unable to put on Plavix as well as she is on Eliquis and so this would constitute a high risk of bleeding. Not on statin due to allergies and muscle pain * Hold all sedative meds. * PT OT on board. Fall precautions. * #COVID-19 infection: As above. On remdesivir and decadron. Breathing treatment with bronchodilators. Titrate oxygen to maintain sats >90% #Submassive PE with right ventricular strain: As above #Type 2 diabetes mellitus on Lantus 40 units nightly. Insulin sliding scale. Accuchecks ACHS. Also on Jardiance. #Hypertension: On lisinopril 2.5 mg daily as well as metoprolol. Also on Trulicity. #Recent diagnosis of gout: prednisone and oxycodone discontinued due to lethargy #History of headaches: Has a history of migraines. On rimegapant. #Depression: On amitriptyline and buspirone DVT prophylaxis: On eliquis CODE STATUS: Full code * Disposition; awaiting placement Total time spent on evaluation and management of patient, reviewing chart, discussing plan with patient, discussion with nursing and ancillary staff as well as documentation:30 mins Charges/Coding Visit Charges Inpatient E&M: 99108 Subs Hosp L2
[2023-09-25] MEDS: APIXABAN 5 MG TABLET 10 MG PO ×2 (10:36→22:42)
[2023-09-25] MEDS: DULoxetine Hcl 60 MG Capsule 120 MG PO (10:36)
[2023-09-25] MEDS: dexAMETHasone 4 MG Tablet 6 MG PO (10:37)
[2023-09-25] MEDS: Ursodiol 250 MG Tablet PO ×2 (10:37→22:42)
[2023-09-25] MEDS: Aspirin E.C. 81 MG Tablet PO (10:37)
[2023-09-25] MEDS: Lisinopril 2.5 MG Tablet PO (10:37)
[2023-09-25] MEDS: Pantoprazole Sodium 40 MG Tablet PO ×2 (10:37→22:41)
[2023-09-25] MEDS: Loratadine 10 MG Tablet PO (10:37)
[2023-09-25] MEDS: Empagliflozin 10 MG Tablet PO (10:37)
[2023-09-25] MEDS: Metoprolol Tartrate 25 MG Tablet 12.5 MG PO ×2 (10:38→22:42)
[2023-09-25] MEDS: Ezetimibe 10 MG Tablet PO (10:39)
[2023-09-25] MEDS: Cholestyramine/Sucrose 4 GM/PACKET PO (12:02)
[2023-09-25] MEDS: Miconazole Nitrate 43 GM Bottle 1 APPLIC TOPICAL ×2 (12:04→22:43)
[2023-09-25 12:25] LABS: Bedside Glucose 132 mg/dL (74-106)
[2023-09-25 17:18] LABS: Bedside Glucose 161 mg/dL (74-106)
[2023-09-25] MEDS: Amitriptyline 100 MG Tablet 200 MG PO (22:41)
[2023-09-25] MEDS: Latanoprost 0.005% 1 Bottle 1 DRP OPHTHALMIC (22:42)
[2023-09-25 23:11] LABS: Bedside Glucose 147 mg/dL (74-106)
[2023-09-26] VITALS (11 sets, daily range): BP systolic 108–142; BP diastolic 70–85; PULSE 63–74; RESP 12–20; TEMP 36.4–36.8; O2SAT 92–96; BMI 43.3
[2023-09-26] MEDS: busPIRone 5 MG Tablet 10 MG PO ×3 (05:15→21:58)
[2023-09-26 07:08] LABS: Anion Gap 4 (5-15); BUN 58 mg/dL (7-18); BUN/Creat Ratio 36.7 RATIO (10-20); Calcium,Total 10.5 mg/dL (8.5-10.1); Chloride 110 mmol/L (98-107); Creatinine, Serum 1.58 mg/dL (0.55-1.02); EST Glomerular Filtration Rate 35 mL/min (>60); Est Glom Filt Rate - Afr Amer 42 mL/min (>60); Estimated Creatinine Clearance 25.72 ml/min; Glucose 135 mg/dL (74-106); Potassium 4.9 mmol/L (3.5-5.1); Sodium Level 135 mmol/L (136-145)
[2023-09-26 08:06] LABS: Bedside Glucose 125 mg/dL (74-106)
[2023-09-26 08:36] LABS: Absolute Lymphocyte Count 2.75 X10^3/uL (0.83-4.51); Absolute Neutrophil Count 4.9 X10^3/uL (2.0-7.7); Basophil# 0.04 X10^3/uL; Basophil% 0.5 % (0-1); Eosinophil# 0.32 X10^3/uL; Eosinophils% 3.6 % (0-5); Hematocrit 44.2 % (37-47); Hemoglobin 12.8 g/dL (12.0-15.0); Lymphocyte # 2.75 X10^3/ul (0.83-4.51); Lymphocyte % 31.1 % (19-41); Mean Corpuscular Hgb 28.1 pg (27.0-32.0); Mean Corpuscular Volume 97.1 fL (81-99); Mean Platelet Vol. 10.3 fl (6.2-12.0); Monocyte# 0.78 X10^3/uL; Monocyte% 8.8 % (0-10); NRBC Flagged by Analyzer 0 % (0-5); Neutrophil # 4.89 X10^3/uL (2.7-7.7); Neutrophil % 55.4 % (47-70); Platelet Count 264 K/mm3 (150-450); RBC Distribution Width CV 14.6 % (11.6-14.6); RBC Distribution Width SD 52.8 fl (35.1-43.9); Red Blood Count 4.55 M/mm3 (4.2-5.4); White Blood Count 8.8 K/mm3 (4.4-11.0)
[2023-09-26] MEDS: DULoxetine Hcl 60 MG Capsule 120 MG PO (09:20)
[2023-09-26] MEDS: Ezetimibe 10 MG Tablet PO (09:20)
[2023-09-26] MEDS: Loratadine 10 MG Tablet PO (09:20)
[2023-09-26] MEDS: Ursodiol 250 MG Tablet PO ×2 (09:20→22:00)
[2023-09-26] MEDS: Empagliflozin 10 MG Tablet PO (09:21)
[2023-09-26] MEDS: Miconazole Nitrate 43 GM Bottle 1 APPLIC TOPICAL (09:21)
[2023-09-26] MEDS: Pantoprazole Sodium 40 MG Tablet PO ×2 (09:21→22:00)
[2023-09-26] MEDS: Metoprolol Tartrate 25 MG Tablet 12.5 MG PO ×2 (09:21→21:59)
[2023-09-26] MEDS: Aspirin E.C. 81 MG Tablet PO (09:21)
[2023-09-26] MEDS: APIXABAN 5 MG TABLET 10 MG PO ×2 (09:21→22:00)
[2023-09-26] MEDS: Lisinopril 2.5 MG Tablet PO (09:21)
[2023-09-26] MEDS: dexAMETHasone 4 MG Tablet 6 MG PO (09:21)
--- NOTE | 2023-09-26 10:23 | PN.HOSP_ITS ---
Subjective Subjective Doing well, no issues overnight. Does not appear confused Objective Data Objective Data Vital Signs: Vital Signs Temp Pulse Resp BP Pulse Ox O2 Del Method O2 Flow Rate 97.7 F L 67 16 129/81 H 94 Room Air 2 09/26/23 09:00 09/26/23 09:21 09/26/23 09:00 09/26/23 09:00 09/26/23 09:00 09/26/23 09:00 09/24/23 21:43 FiO2 40 09/26/23 07:40 Oxygen Flow Rate (L/min) [ 2 AMBULATING with Oxygen #1] Oxygen Flow Rate (L/min) [At 2 REST with Oxygen] Oxygen Flow Rate (L/min) 2 Oxygen Delivery Method Room Air Weight: 229 lb 8.019 oz Body Mass Index (BMI) 43.3 Intake & Output: Intake and Output for Last 24 Hours 09/25/23 09/26/23 09/27/23 03:59 03:59 03:59 Intake Total 250 / 250 1460 / 1460 Output Total 800 / 800 2050 / 2050 650 / 650 Balance -550 / -550 -590 / -590 -650 / -650 Lab / Micro Data 09/26/23 08:26 09/26/23 06:22 Labs: Laboratory Results - last 24 hr 09/25/23 11:59: POC Glucose 132 H 09/25/23 16:57: POC Glucose 161 H 09/25/23 22:39: POC Glucose 147 H 09/26/23 06:22: WBC Cancelled, Corrected WBC Cancelled, RBC Cancelled, Hgb Cancelled, Hct Cancelled, MCV Cancelled, MCH Cancelled, MCHC Cancelled, RDW Std Deviation Cancelled, RDW Coeff of Paulo Cancelled, Plt Count Cancelled, MPV Cancelled, Immature Gran % (Auto) Cancelled, Neut % (Auto) Cancelled, Lymph % (Auto) Cancelled, Mingo % (Auto) Cancelled, Eos % (Auto) Cancelled, Baso % (Auto) Cancelled, Absolute Neuts (auto) Cancelled, Absolute Lymphs (auto) Cancelled, Total Counted Cancelled, Neutrophils % (Manual) Cancelled, Band Neutrophils % Cancelled, Lymphocytes % (Manual) Cancelled, Monocytes % (Manual) Cancelled, Eosinophils % (Manual) Cancelled, Basophils % (Manual) Cancelled, Metamyelocytes % Cancelled, Myelocytes % Cancelled, Promyelocytes % Cancelled, Blast Cells % Cancelled, Plasma Cell % (Manual) Cancelled, Other Cells % Cancelled, Nucleated RBC % Cancelled, Nucleated RBCs/100 WBC Cancelled, Differential Comment Cancelled, Diff Path Review Cancelled, Hypersegmented Neuts Cancelled, Atypical Lymphocytes Cancelled, Reactive Lymphocytes Cancelled, Smudge Cells Cancelled, Toxic Granulation Cancelled, Toxic Vacuolation Cancelled, Dohle Bodies Cancelled, Trav Rods Cancelled, Platelet Estimate Cancelled, Plt Morphology Comment Cancelled, RBC Morphology Cancelled 09/26/23 06:22: RBC Morphology Cancelled, Polychromasia Cancelled, Hypochromasia Cancelled, Poikilocytosis Cancelled, Basophilic Stippling Cancelled, Anisocytosis Cancelled, Microcytosis Cancelled, Macrocytosis Cancelled, Spherocytes Cancelled, Sickle Cells Cancelled, Target Cells Cancelled, Tear Drop Cells Cancelled, Ovalocytes Cancelled, Stomatocytes Cancelled, Quevedo-Avon Bodies Cancelled, Barton Cells Cancelled, Bite Cells Cancelled, Crenated Cell Cancelled, Acanthocytes (Spur) Cancelled, Rouleaux Cancelled, Schistocytes Cancelled, Sodium 135 L, Potassium 4.9, Chloride 110 H, Carbon Dioxide 21.0, Anion Gap 4 L, BUN 58 H, Creatinine 1.58 H, Estim Creat Clear Calc 25.72, Est GFR (MDRD) Af Amer 42 L, Est GFR (MDRD) Non-Af 35 L, BUN/Creatinine Ratio 36.7 H , Glucose 135 H, Calcium 10.5 H 09/26/23 07:45: POC Glucose 125 H 09/26/23 08:26: WBC 8.8, RBC 4.55, Hgb 12.8, Hct 44.2, MCV 97.1, MCH 28.1, MCHC 29.0 L D, RDW Std Deviation 52.8 H, RDW Coeff of Paulo 14.6, Plt Count 264, MPV 10.3, Immature Gran % (Auto) 0.600, Neut % (Auto) 55.4, Lymph % (Auto) 31.1, Mingo % (Auto) 8.8, Eos % (Auto) 3.6, Baso % (Auto) 0.5, Absolute Neuts (auto) 4.9, Absolute Lymphs (auto) 2.75, Nucleated RBC % 0 Micro: Microbiology 09/20/23 10:04 Blood Culture (Wb) - Anticubital Right Blood Culture - Final No growth in 5 days. 09/20/23 10:00 Blood Culture (Wb) - Anticubital Left Blood Culture - Final No growth in 5 days. 09/23/23 12:38 Stool Clostridioides difficile (PCR) - Final 09/20/23 09:56 Nasal Secretion SARS-CoV-2 & FLU Antigen (Rapid) - Final SARS-CoV-2 (COVID 19) Physical Exam Narrative General: Alert, Oriented x3, Cooperative, No apparent distress HEENT: Atraumatic, PERRLA, EOMI, Normocephalic Oral: Moist Mucosa Neck: Supple, No JVD Lungs: Diminished, Normal air movement, No rhonchi, No wheeze, No rales Cardiovascular: Regular rate, Regular Rhythm, Normal S1, Normal S2, No murmurs Abdomen: Soft, Non Tender, Non-Distended, No Hepato-splenomegaly Extremities: No edema, Capillary Refill Less than 3 Seconds Skin: No rashes, No breakdown Musculoskeletal: No Tenderness to Palpation of Joints or Extremities Neurological: Moves all extremities, no focal deficits, Motor Exam 5/5 strength throughout, Sensory exam intact to light touch and pain Psych/Mental Status: Normal Affect, Appropriate Assessment & Plan Assessment/Plan (1) Pulmonary emboli: PLAN: Plan #Acute hypoxic respiratory failure due to submassive PE with right ventricular strain * now on eliquis * On remdesivir and Decadron for COVID. * Troponins trended down. Elevated BNP also likely due to PE * 2D echo showed EF of 45 to 50% with mild left ventricular systolic dysfunction and mild global ventricular hypokinesis with mild right ventricular systolic dysfunction with mildly dilated right ventricle. * She is already on lisinopril 2.5 mg daily. * Continue with metoprolol 12.5 milligrams p.o. twice daily #Acute encephalopathy due to acute CVA and medication * Awake and appears less encephalopathic today compared to previous documentation * CT of the brain done was negative for any acute intracranial pathology. * CTA head and neck showed no acute intracranial pathology * MRI of the brain showed very subtle focus of restricted diffusion measuring approximately 3 mm in the peripheral aspect of the posterior limb of the left internal capsule at the thalamocapsular junction suggesting a small acute infarct * Currently on aspirin. Unable to put on Plavix as well as she is on Eliquis and so this would constitute a high risk of bleeding. Not on statin due to allergies and muscle pain * Hold all sedative meds. * PT OT on board. Fall precautions. #COVID-19 infection: As above. On remdesivir and decadron. Breathing treatment with bronchodilators. Titrate oxygen to maintain sats >90% #Type 2 diabetes mellitus on Lantus 40 units nightly. Insulin sliding scale. Accuchecks ACHS. Also on Jardiance. Will monitor and make adjustments as necessary #Hypertension: On lisinopril 2.5 mg daily as well as metoprolol. Also on Trulicity. Will monitor and make adjustments as necessary #Recent diagnosis of gout: prednisone and oxycodone discontinued due to lethargy #History of headaches: Has a history of migraines. On rimegapant. #Depression: On amitriptyline and buspirone DVT: Eliquis Charges/Coding Visit Charges Inpatient E&M: 37901 Subs Hosp L2
[2023-09-26] MEDS: Insulin Lispro 100 UNIT/ML INSULN.PEN SC ×2 (12:11→17:10)
[2023-09-26] MEDS: Cholestyramine/Sucrose 4 GM/PACKET PO (12:11)
[2023-09-26 12:31] LABS: Bedside Glucose 171 mg/dL (74-106)
[2023-09-26 17:30] LABS: Bedside Glucose 199 mg/dL (74-106)
[2023-09-26] MEDS: Amitriptyline 100 MG Tablet 200 MG PO (21:58)
[2023-09-26] MEDS: Insulin Glargine-YFGN 100 UNIT/ML Pen 40 UNIT SC (22:01)
[2023-09-26] MEDS: Latanoprost 0.005% 1 Bottle 1 DRP OPHTHALMIC (22:05)
[2023-09-26 22:31] LABS: Bedside Glucose 173 mg/dL (74-106)
[2023-09-27 01:41] VITALS: BMI 43.3
--- NOTE | 2023-09-27 01:57 | CPS ---
pt keeps taking bipap off, so its off for the night but pt did have it on up until this point.
[2023-09-27 02:09] LABS: Amphetamine Urine VISTA NEGATIVE (<1000 ng/mL); Barbiturate Urine VISTA NEGATIVE (< 200 ng/mL); Benzodiazepine Urine VISTA NEGATIVE (< 200 ng/mL); Cocaine Urine VISTA NEGATIVE (< 300 ng/mL); Ecstacy Urine VISTA NEGATIVE (< 500 ng/mL); Methadone Urine VISTA NEGATIVE (< 300 ng/mL); PCP Urine VISTA NEGATIVE (< 25 ng/mL); THC Urine VISTA NEGATIVE (< 50 ng/mL); Vista UDS pH Range 5
[2023-09-27 05:00] VITALS: BP 125/74; PULSE 72; RESP 18; TEMP 36.6; O2SAT 95
[2023-09-27] MEDS: busPIRone 5 MG Tablet 10 MG PO ×3 (05:36→20:56)
[2023-09-27 08:11] LABS: Absolute Lymphocyte Count 2.17 X10^3/uL (0.83-4.51); Basophil# 0.03 X10^3/uL; Basophil% 0.4 % (0-1); Eosinophil# 0.21 X10^3/uL; Eosinophils% 2.6 % (0-5); Hematocrit 41.2 % (37-47); Hemoglobin 12.8 g/dL (12.0-15.0); Lymphocyte # 2.17 X10^3/ul (0.83-4.51); Mean Corp Hgb Conc 31.1 g/dL (32-36); Mean Corpuscular Hgb 28.5 pg (27.0-32.0); Mean Corpuscular Volume 91.8 fL (81-99); Mean Platelet Vol. 10.4 fl (6.2-12.0); Monocyte# 0.58 X10^3/uL; Monocyte% 7.2 % (0-10); NRBC Flagged by Analyzer 0 % (0-5); Neutrophil # 5.01 X10^3/uL (2.7-7.7); Neutrophil % 62.3 % (47-70); Platelet Count 289 K/mm3 (150-450); RBC Distribution Width CV 14.4 % (11.6-14.6); RBC Distribution Width SD 48.5 fl (35.1-43.9); Red Blood Count 4.49 M/mm3 (4.2-5.4)
[2023-09-27 08:20] LABS: Bedside Glucose 90 mg/dL (74-106)
[2023-09-27 09:13] LABS: Anion Gap 4 (5-15); BUN 52 mg/dL (7-18); BUN/Creat Ratio 35.4 RATIO (10-20); Calcium,Total 10.7 mg/dL (8.5-10.1); Chloride 110 mmol/L (98-107); Creatinine, Serum 1.47 mg/dL (0.55-1.02); EST Glomerular Filtration Rate 38 mL/min (>60); Est Glom Filt Rate - Afr Amer 45 mL/min (>60); Estimated Creatinine Clearance 27.64 ml/min; Glucose 96 mg/dL (74-106); Potassium 5.1 mmol/L (3.5-5.1); Sodium Level 138 mmol/L (136-145)
--- NOTE | 2023-09-27 09:43 | PN.HOSP_ITS ---
Subjective Subjective Doing well, no issues overnight Objective Data Objective Data Vital Signs: Vital Signs Temp Pulse Resp BP Pulse Ox O2 Del Method O2 Flow Rate 97.8 F 72 18 125/74 H 95 Room Air 2 09/27/23 05:00 09/27/23 05:00 09/27/23 05:00 09/27/23 05:00 09/27/23 05:00 09/27/23 07:49 09/24/23 21:43 FiO2 21 09/26/23 23:24 Oxygen Flow Rate (L/min) [ 2 AMBULATING with Oxygen #1] Oxygen Flow Rate (L/min) [At 2 REST with Oxygen] Oxygen Flow Rate (L/min) 2 Oxygen Delivery Method Room Air Weight: 229 lb 8.019 oz Body Mass Index (BMI) 43.3 Intake & Output: Intake and Output for Last 24 Hours 09/26/23 09/27/23 09/28/23 03:59 03:59 03:59 Intake Total 1460 / 1460 600 / 600 Output Total 2050 / 2050 2400 / 2400 Balance -590 / -590 -1800 / -1800 Lab / Micro Data 09/27/23 07:45 09/27/23 07:45 Labs: Laboratory Results - last 24 hr 09/26/23 12:10: POC Glucose 171 H 09/26/23 17:08: POC Glucose 199 H 09/26/23 21:51: POC Glucose 173 H 09/27/23 01:00: Urine Opiates Screen NEGATIVE, Urine Methadone Screen NEGATIVE, Ur Barbiturates Screen NEGATIVE, Ur Phencyclidine Scrn NEGATIVE, Ur Amphetamines Screen NEGATIVE, MDMA (Ecstasy) Screen NEGATIVE, U Benzodiazepines Scrn NEGATIVE, Urine Cocaine Screen NEGATIVE, U Cannabinoids Screen NEGATIVE, Ur Drug Screen Comment 09/27/23 07:45: WBC 8.0, RBC 4.49, Hgb 12.8, Hct 41.2, MCV 91.8 D, MCH 28.5, MC HC 31.1 L D, RDW Std Deviation 48.5 H, RDW Coeff of Paulo 14.4, Plt Count 289, MPV 10.4, Immature Gran % (Auto) 0.500, Neut % (Auto) 62.3, Lymph % (Auto) 27.0, [place] % (Auto) 7.2, Eos % (Auto) 2.6, Baso % (Auto) 0.4, Absolute Neuts (auto) 5.0, Absolute Lymphs (auto) 2.17, Nucleated RBC % 0, Sodium 138, Potassium 5.1, Chloride 110 H, Carbon Dioxide 24.0, Anion Gap 4 L, BUN 52 H, Creatinine 1.47 H, Estim Creat Clear Calc 27.64, Est GFR (MDRD) Af Amer 45 L, Est GFR (MDRD) Non-Af 38 L, BUN/Creatinine Ratio 35.4 H, Glucose 96, Calcium 10.7 H 09/27/23 07:56: POC Glucose 90 Micro: Microbiology 09/20/23 10:04 Blood Culture (Wb) - Anticubital Right Blood Culture - Final No growth in 5 days. 09/20/23 10:00 Blood Culture (Wb) - Anticubital Left Blood Culture - Final No growth in 5 days. 09/23/23 12:38 Stool Clostridioides difficile (PCR) - Final 09/20/23 09:56 Nasal Secretion SARS-CoV-2 & FLU Antigen (Rapid) - Final SARS-CoV-2 (COVID 19) Physical Exam Narrative General: Alert, Oriented x3, Cooperative, No apparent distress HEENT: Atraumatic, PERRLA, EOMI, Normocephalic Oral: Moist Mucosa Neck: Supple, No JVD Lungs: Diminished, Normal air movement, No rhonchi, No wheeze, No rales Cardiovascular: Regular rate, Regular Rhythm, Normal S1, Normal S2, No murmurs Abdomen: Soft, Non Tender, Non-Distended, No Hepato-splenomegaly Extremities: No edema, Capillary Refill Less than 3 Seconds Skin: No rashes, No breakdown Musculoskeletal: No Tenderness to Palpation of Joints or Extremities Neurological: Moves all extremities, no focal deficits, Motor Exam 5/5 strength throughout, Sensory exam intact to light touch and pain Psych/Mental Status: Normal Affect, Appropriate Assessment & Plan Assessment/Plan (1) Pulmonary emboli: PLAN: Plan 1. Acute hypoxic respiratory failure due to submassive PE with right ventr icular strain/COVID * now on eliquis * On remdesivir and Decadron for COVID. * Troponins trended down. Elevated BNP also likely due to PE * 2D echo showed EF of 45 to 50% with mild left ventricular systolic dysfunction and mild global ventricular hypokinesis with mild right ventricular systolic dysfunction with mildly dilated right ventricle. * She is already on lisinopril 2.5 mg daily. * Continue with metoprolol 12.5 milligrams p.o. twice daily 2. Acute encephalopathy due to acute CVA and medication * Awake and appears less encephalopathic today compared to previous documentat ion * CT of the brain done was negative for any acute intracranial pathology. * CTA head and neck showed no acute intracranial pathology * MRI of the brain showed very subtle focus of restricted diffusion measuring approximately 3 mm in the peripheral aspect of the posterior limb of the left internal capsule at the thalamocapsular junction suggesting a small acute infarct * Currently on aspirin. Unable to put on Plavix as well as she is on Eliquis a nd so this would constitute a high risk of bleeding. Not on statin due to allergies and muscle pain * Hold all sedative meds. * PT OT on board. Fall precautions. 3. Type 2 diabetes mellitus ? On Lantus 40 units nightly. Insulin sliding scale. ? Accuchecks ACHS. Also on Jardiance. ? Will monitor and make adjustments as necessary 4. Hypertension ? Blood pressures are stable on lisinopril 2.5 mg daily as well as metoprolol. ? Will monitor and make adjustments as necessary 5. Recent diagnosis of gout ? Prednisone and oxycodone discontinued due to lethargy 6. History of migraines ? Stable ? On rimegapant. 7. Depression ? Stable ? On amitriptyline and buspirone DVT: Eliqumaura Charges/Coding Visit Charges Inpatient E&M: 06411 Subs Hosp L2
[2023-09-27 10:43] VITALS: BP 111/72; PULSE 73; RESP 18; TEMP 36.3; O2SAT 96
[2023-09-27] MEDS: DULoxetine Hcl 60 MG Capsule 120 MG PO (10:49)
[2023-09-27] MEDS: dexAMETHasone 4 MG Tablet 6 MG PO (10:49)
[2023-09-27] MEDS: Loratadine 10 MG Tablet PO (10:49)
[2023-09-27] MEDS: Miconazole Nitrate 43 GM Bottle 1 APPLIC TOPICAL ×2 (10:50→20:59)
[2023-09-27] MEDS: Aspirin E.C. 81 MG Tablet PO (10:50)
[2023-09-27] MEDS: Empagliflozin 10 MG Tablet PO (10:51)
[2023-09-27] MEDS: APIXABAN 5 MG TABLET 10 MG PO ×2 (10:51→20:57)
[2023-09-27 10:52] VITALS: PULSE 73
[2023-09-27] MEDS: Ursodiol 250 MG Tablet PO ×2 (10:52→20:56)
[2023-09-27] MEDS: Lisinopril 2.5 MG Tablet PO (10:52)
[2023-09-27] MEDS: Ezetimibe 10 MG Tablet PO (10:52)
[2023-09-27] MEDS: Metoprolol Tartrate 25 MG Tablet 12.5 MG PO (10:52)
[2023-09-27] MEDS: Pantoprazole Sodium 40 MG Tablet PO ×2 (10:52→20:57)
--- NOTE | 2023-09-27 11:42 | CASEMGMT ---
Referral was sent to [facility] (formerly [place]) as this was patient's preference. [facility] has accepted patient and will start the pre-cert process. Plan: [facility] pending insurance approval. Katrin TAYLOR
[2023-09-27] MEDS: Cholestyramine/Sucrose 4 GM/PACKET PO (12:12)
[2023-09-27 12:34] LABS: Bedside Glucose 107 mg/dL (74-106)
[2023-09-27 12:44] VITALS: O2SAT 95
[2023-09-27 15:37] VITALS: BMI 43.3
[2023-09-27] MEDS: Insulin Lispro 100 UNIT/ML INSULN.PEN SC ×2 (16:54→20:57)
[2023-09-27 16:57] VITALS: BP 121/70; PULSE 72; RESP 16; TEMP 36.7; O2SAT 94
[2023-09-27 17:21] LABS: Bedside Glucose 173 mg/dL (74-106)
[2023-09-27 20:55] VITALS: BP 95/68; PULSE 66; RESP 18; TEMP 36; O2SAT 95
[2023-09-27] MEDS: Amitriptyline 100 MG Tablet 200 MG PO (20:57)
[2023-09-27] MEDS: Latanoprost 0.005% 1 Bottle 1 DRP OPHTHALMIC (20:58)
[2023-09-27] MEDS: Insulin Glargine-YFGN 100 UNIT/ML Pen 40 UNIT SC (20:58)
[2023-09-27 21:09] VITALS: BMI 43.3
[2023-09-27 21:25] LABS: Bedside Glucose 171 mg/dL (74-106)
--- NOTE | 2023-09-27 23:24 | CPS ---
pt did not want to go on our bipap at this time-pt in no resp distress and on room air-nurse aware
[2023-09-28 03:00] VITALS: BP 117/87; PULSE 61; RESP 16; TEMP 36; O2SAT 93
[2023-09-28] MEDS: busPIRone 5 MG Tablet 10 MG PO (06:13)
[2023-09-28 08:25] LABS: Bedside Glucose 102 mg/dL (74-106)
--- NOTE | 2023-09-28 09:56 | TREXTCAR_ITS ---
Diet Diet Order/Speech Therapy: 09/20/23 14:05 Diet: Cardiac: Calorie-Controlled Food consistency:: Soft & Bite Sized Liquid Consistency:: Regular/Thin Type of Dietary Supplement:: Glucerna Shake Diet Comments: No straws, Distant supervision, 120mL glucerna w/ meals How many daily calories?: 1800 calorie Routine Orders/Code Status Routine Lab Work: CBC and BMP Therapies Physical Therapy: Eval and Treat Occupational Therapy: Eval and Treat Problem/Diagnosis (1) Pulmonary emboli: Status: Acute Code(s): I26.99 - Other pulmonary embolism without acute cor pulmonale Plan 1. Acute hypoxic respiratory failure due to submassive PE with right ventricular strain/COVID * now on eliquis * On remdesivir and Decadron for COVID. * Troponins trended down. Elevated BNP also likely due to PE * 2D echo showed EF of 45 to 50% with mild left ventricular systolic dysfunction and mild global ventricular hypokinesis with mild right ventricular systolic dysfunction with mildly dilated right ventricle. * She is already on lisinopril 2.5 mg daily. * Continue with metoprolol 12.5 milligrams p.o. twice daily 2. Acute encephalopathy due to acute CVA and medication * Awake and appears less encephalopathic today compared to previous documentation * CT of the brain done was negative for any acute intracranial pathology. * CTA head and neck showed no acute intracranial pathology * MRI of the brain showed very subtle focus of restricted diffusion measuring approximately 3 mm in the peripheral aspect of the posterior limb of the left internal capsule at the thalamocapsular junction suggesting a small acute infarct * Currently on aspirin. Unable to put on Plavix as well as she is on Eliquis and so this would constitute a high risk of bleeding. Not on statin due to allergies and muscle pain * Hold all sedative meds. * PT OT on board. Fall precautions. 3. Type 2 diabetes mellitus ? On Lantus 40 units nightly. Insulin sliding scale. ? Accuchecks ACHS. Also on Jardiance. ? Will monitor and make adjustments as necessary 4. Hypertension ? Blood pressures are stable on lisinopril 2.5 mg daily as well as metoprolol. ? Will monitor and make adjustments as necessary 5. Recent diagnosis of gout ? Prednisone and oxycodone discontinued due to lethargy 6. History of migraines ? Stable ? On rimegapant. 7. Depression ? Stable ? On amitriptyline and buspirone DVT: Eliquis Allergies/Procedures Done in Hospital Allergies saliva substitute combination no.9 [From Biotene PBF] Allergy (Severe, Verified 09/20/23 09:31) Angioedema gemfibrozil Adverse Reaction (Severe, Verified 09/20/23 09:31) Myalgia [id number] Reductase Inhibitor Adverse Reaction (Severe, Verified 09/20/23 09:31) muscle pain Procedures: 2-D Echocardiogram Type of Care/Length of Stay Estimated LOS: Convalescent Care Less Than 30 days Type of Care Needed: Skilled Rehab Potential: Good Prognosis: Good Additional Orders/Day of Discharge Additional Orders: Please refer pt for counseling/psychology services while at facility Day of Discharge: 09/28/23 Dietary and Speech Recommendations Dietitian Recommendations/Changes: continue cardiac, 1800 calorie controlled diet as tolerated; will add 120mL glucerna w/ meals for additional nutrition if consumed. Discharge Plan Admission Admit Date/Time: 09/20/23 12:33 Primary Reason for Your Visit: PE Attending Provider: Darrin Murcia Primary Care Provider: Vamsi Epperson Consulting Providers: Arslan Amor; Shaista Sloan; Christina Tobias; Didi Sosa; Ondina Blas; Jeremiah Lackey; Krystyna Sneed; Ravindra Stack; Darius Lorenz; Munira Evans ret; Lebron Delong; Roseann Stiles; Inga Pastrana; Mabel Padron; Tuan Cohen; Henok Sam; Santi Alvarado; Gila Lovell; Clarisse Abdul; Amara Cardenas Instructions Patient Instructions: Embolism Pulmonary Dc Discharge Orders/Prescriptions Prescriptions: New metoprolol tartrate 25 mg tablet 12.5 mg PO BID Qty: 30 1RF Eliquis 5 mg Tablet 10 mg PO BID Qty: 0 0RF Continued (DME) lancets [Accu-Chek Softclix Lancets] Misc See Rx Instructions .ROUTE .MEDSUPPLY Qty: 100 Rx Instructions: As directed, Test 4 times daily before meals and at bedtime (DME) Accu-Chek Christi Plus test strp Strip See Rx Instructions .ROUTE .MEDSUPPLY Qty: 10 Rx Instructions: As directed; Test 4 times daily before meals and at bedtime vit C,E,zinc,Jh-nwhdo-6-lutein-zeaxanthin 250 mg-2.5 mg-0.5 mg capsule 250-2.5-0.5 mg capsule 1 cap PO DAILY (DME) CPAP See Rx Instructions .Route .MEDSUPPLY Qty: 1 Rx Instructions: 14 cm H2O (DME) blood-glucose meter Misc See Rx Instructions .ROUTE .MEDSUPPLY Qty: 1 Rx Instructions: As directed (DME) blood pressure monitor [Blood Pressure Kit] Kit See Rx Instructions .ROUTE .MEDSUPPLY Qty: 1 Rx Instructions: As directed aspirin 81 mg tablet,delayed release (DR/EC) 81 mg PO DAILY latanoprost 0.005 % drops 1 drp ophthalmic (eye) PRN PRN (Reason: MACULAR DEGENRATION) vitamin E 400 unit capsule 800 unit PO DAILY Qty: 60 5RF (DME) pen needle, diabetic [Novofine 32] 32 gauge x 1/4 needle See Rx Instructions .ROUTE .MEDSUPPLY Qty: 200 6RF Rx Instructions: As directed; 4x/day Trulicity 4.5 mg/0.5 mL pen injector 4.5 mg subcut QWEEK Qty: 2 4RF (DME) Bilateral wrist splints See Rx Instructions .Route .MEDSUPPLY Qty: 2 0RF Rx Instructions: As directed insulin lispro [Humalog KwikPen Insulin] 100 unit/mL insulin pen 12 unit subcut TID Rx Instructions: 12u with meals, 6u with snacks. +SSI 180-210+2; 211-240+3; 241-300+5; >300 +7 MDD 50 pantoprazole 40 mg tablet,delayed release (DR/EC) 40 mg PO BID Qty: 180 1RF buspirone 10 mg tablet 10 mg PO TID Qty: 270 1RF loratadine 10 mg tablet 10 mg PO DAILY Qty: 90 1RF amitriptyline 100 mg tablet 200 mg PO QHS Qty: 180 1RF Nurtec ODT 75 mg tablet,disintegrating 75 mg PO DAILY PRN (Reason: migraine headache) Qty: 8 5RF pregabalin 150 mg capsule 150 mg PO BID Qty: 180 1RF cyclobenzaprine 10 mg tablet 5 - 10 mg PO TID PRN (Reason: muscle spasm) Qty: 270 1RF fluticasone propionate 50 mcg/actuation spray,suspension 2 spray INTRANASAL PRN PRN (Reason: Nasal Congestion) Rx Instructions: administer into each nostril albuterol sulfate [Ventolin HFA] 90 mcg/actuation HFA aerosol inhaler 1 - 2 puff inhalation Q4H PRN PRN (Reason: Wheezing) Qty: 1 0RF simethicone 80 mg tablet,chewable 80 mg PO 4X/DAY PRN (Reason: Flatulence) Qty: 30 1RF cholestyramine (with sugar) 4 gram powder 4 g PO DAILY Qty: 348.6 0RF Rx Instructions: administer w/meal; avoid other meds within 1hr before or 4-6hr after dose ursodiol 250 mg tablet See Rx Instructions .ROUTE .COMPLEX Qty: 180 3RF Dose Instruction: TAKE 1 TABLET BY MOUTH TWICE DAILY Rx Instructions: TAKE 1 TABLET BY MOUTH TWICE DAILY lisinopril 2.5 mg tablet See Rx Instructions .ROUTE .COMPLEX Qty: 90 2RF Dose Instruction: TAKE 1 TABLET BY MOUTH EVERY DAY Rx Instructions: TAKE 1 TABLET BY MOUTH EVERY DAY ezetimibe [Zetia] 10 mg tablet 10 mg PO DAILY Qty: 60 2RF Jardiance 10 mg tablet 10 mg PO DAILY Qty: 30 6RF Prolia 60 mg/mL syringe 60 mg subcut [id number] Qty: 1 0RF Tresiba FlexTouch U-100 100 unit/mL (3 mL) insulin pen 40 unit SC QHS Qty: 36 1RF duloxetine 60 mg capsule,delayed release(DR/EC) See Rx Instructions .ROUTE .COMPLEX Qty: 180 1RF Dose Instruction: TAKE 2 CAPSULES BY MOUTH DAILY Rx Instructions: TAKE 2 CAPSULES BY MOUTH DAILY cholecalciferol (vitamin D3) 1,250 mcg (50,000 unit) capsule 1,250 mcg PO QWEEK Qty: 30 1RF Discontinued oxycodone-acetaminophen 5-325 mg tablet 1 tab PO Q6H PRN PRN (Reason: Pain) 3 Days Qty: 12 0RF Referrals / Follow Up: Sean Nagel MD [Med Staff - Active Staff] - Within 2 Weeks Vamsi Epperson MD [Primary Care Provider] - 09/29/23 2:15 pm Judah Mora MD [Non-Staff -Ordering Privileges] - 09/27/23 11:00 am Disposition Disposition (needs filled in before D/C Order can be placed[facility]
[2023-09-28 10:07] VITALS: BP 78/53; PULSE 83; RESP 16; TEMP 36.3; O2SAT 95
[2023-09-28] MEDS: dexAMETHasone 4 MG Tablet 6 MG PO (10:14)
[2023-09-28] MEDS: Loratadine 10 MG Tablet PO (10:14)
[2023-09-28] MEDS: DULoxetine Hcl 60 MG Capsule 120 MG PO (10:14)
[2023-09-28] MEDS: Aspirin E.C. 81 MG Tablet PO (10:15)
[2023-09-28] MEDS: APIXABAN 5 MG TABLET 10 MG PO (10:15)
[2023-09-28] MEDS: Miconazole Nitrate 43 GM Bottle 1 APPLIC TOPICAL (10:15)
[2023-09-28] MEDS: Empagliflozin 10 MG Tablet PO (10:15)
[2023-09-28] MEDS: Ursodiol 250 MG Tablet PO (10:16)
[2023-09-28] MEDS: Ezetimibe 10 MG Tablet PO (10:16)
[2023-09-28] MEDS: Pantoprazole Sodium 40 MG Tablet PO (10:16)
--- NOTE | 2023-09-28 10:30 | CASEMGMT ---
Patient was approved to go to [facility]. SW notified physician and patient. Plan: d/c to [facility] under skilled level of care on a convalescent stay. [facility] will transport patient. Katrin TAYLOR
--- NOTE | 2023-09-28 10:53 | PHA.DC.MR.R ---
Pharmacy [place] Med Reconciliation Pharmacy Service has performed discharge medication reconciliation for this patient. The patient's discharge medication list was reviewed for discrepancies and discrepancies were resolved. Medications at Discharge Home Medications CPAP #1 ea 09/24/20 aspirin 81 mg tablet,delayed release 81 mg PO DAILY heart health 09/24/20 blood pressure monitor (Blood Pressure Kit) #1 ea 09/24/20 blood sugar diagnostic (Accu-Chek Christi Plus test strips) #10 ea 09/24/20 blood-glucose meter #1 ea 09/24/20 lancets (Accu-Chek Softclix Lancets) #100 ea 09/24/20 vit C,E,zinc,Qg-ftzno-6-lutein-zeaxanthin 250 mg-2.5 mg-0.5 mg capsule 1 cap PO DAILY vitamin 09/24/20 latanoprost 0.005 % eye drops 1 drp ophthalmic (eye) PRN PRN MACULAR DEGENRATION 02/24/21 simethicone 80 mg chewable tablet 80 mg PO 4X/DAY PRN Flatulence #30 tabs 12/07/21 vitamin E 268 mg (400 unit) capsule 800 unit PO DAILY vitamin #60 caps 02/08/22 Bilateral wrist splints #2 ea 06/07/22 Trulicity 4.5 mg/0.5 mL subcutaneous pen injector (dulaglutide) 4.5 mg (0.5 mL) subcut QWEEK diabetes #2 mL 07/27/22 pen needle, diabetic 32 gauge x 1/4 (Novofine 32) #200 ea 07/27/22 cholestyramine (with sugar) 4 gram oral powder 4 g PO DAILY digestion #348.6 grams 08/12/22 fluticasone propionate 50 mcg/actuation nasal spray,suspension 2 spray intranasal PRN PRN Nasal Congestion 09/06/22 ursodiol 250 mg tablet See Rx Instructions .Route .COMPLEX gallstones #180 tabs 10/14/22 lisinopril 2.5 mg tablet See Rx Instructions .Route .COMPLEX blood pressure #90 TABLETS 10/26/22 pantoprazole 40 mg tablet,delayed release 40 mg PO BID reflux #180 tabs 01/04/23 ezetimibe 10 mg tablet (Zetia) 10 mg PO DAILY #60 tabs 02/28/23 insulin lispro 100 unit/mL subcutaneous pen (Humalog KwikPen (U-100) Insulin) 12 unit subcut TID 02/28/23 Jardiance 10 mg tablet (empagliflozin) 10 mg PO DAILY #30 tabs 03/14/23 denosumab 60 mg/mL subcutaneous syringe (Prolia) 60 mg subcut [id number] bone health #1 mL 03/17/23 insulin degludec 100 unit/mL (3 mL) subcutaneous pen (Tresiba FlexTouch U-100 insulin) 40 unit (0.4 mL) subcut QHS #36 mL 07/11/23 duloxetine 60 mg capsule,delayed release See Rx Instructions .Route .COMPLEX #180 caps 08/01/23 cholecalciferol (vitamin D3) 1,250 mcg (50,000 unit) capsule 1,250 mcg PO QWEEK vitamin #30 caps 08/22/23 amitriptyline 100 mg tablet 200 mg (2 x 100 mg) PO QHS sleep #180 tabs 08/23/23 buspirone 10 mg tablet 10 mg PO TID mental health #270 tabs 08/23/23 cyclobenzaprine 10 mg tablet 5 - 10 mg (0.5 - 1 x 10 mg) PO TID PRN muscle spasm #270 tabs 08/23/23 loratadine 10 mg tablet 10 mg PO DAILY allergies #90 tabs 08/23/23 pregabalin 150 mg capsule 150 mg PO BID pain #180 caps 08/23/23 rimegepant 75 mg disintegrating tablet (Nurtec ODT) 75 mg PO DAILY PRN migraine headache #8 tabs 08/23/23 albuterol sulfate 90 mcg/actuation aerosol inhaler (Ventolin HFA) 1 - 2 puff inhalation Q4H PRN PRN Wheezing #1 inh 09/11/23 metoprolol tartrate 25 mg tablet 12.5 mg (1/2 x 25 mg) PO BID #30 tabs 09/22/23 apixaban 5 mg tablet (Eliquis) 10 mg (2 x 5 mg) PO BID #0 tabs 09/28/23
[2023-09-28 11:04] VITALS: BP 88/59; BP 88/64
--- NOTE | 2023-09-28 11:17 | CASEMGMT ---
Discharge Planning Discharge orders, signed med list, and transport time sent to [facility] via [facility]. [facility] will transport patient by wheelchair at 12p. Nursing and SW updated. Cherelle Vo, Discharge Planning Asst.
[2023-09-28 11:31] VITALS: BMI 43.3
--- NOTE | 2023-09-28 12:04 | NURSING ---
1204 Report called to Nicole @ [facility] bam Posada
--- NOTE | 2023-09-28 13:20 | DS.PCM_ITS ---
Providers Date of Admission: 09/20/23 Primary Care Physician: Dr. 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 / Pulmonary Medicine Routine Consulting Provider: Pulmonary Medicine kaden [place] Reason for Consult: acute submassive PE EMERGENT Consult: No Notified: Yes Date Notified: 09/20/23 Time Notified: 14:14 Method of Notification: Text 09/23/23 11:09 Neurology [Consult: Tele-Neurology] Routine Consulting Provider: [facility] Reason for Consult: altered mental status, double vision EMERGENT Consult: No Notified: Yes Date Notified: 09/23/23 Time Notified: 11:09 Method of Notification: [facility] Service Nursing Unit Staff Notify [facility] of Tele-Neurology Consult: Yes Reason For Visit: PULMONARY EMBOLISM Diagnosis Discharge Diagnosis (1) Pulmonary emboli: Status: Acute Code(s): I26.99 - Other pulmonary embolism without acute cor pulmonale Medications at Discharge Home Medications CPAP #1 ea 09/24/20 aspirin 81 mg tablet,delayed release 81 mg PO DAILY heart health 09/24/20 blood pressure monitor (Blood Pressure Kit) #1 ea 09/24/20 blood sugar diagnostic (Accu-Chek Christi Plus test strips) #10 ea 09/24/20 blood-glucose meter #1 ea 09/24/20 lancets (Accu-Chek Softclix Lancets) #100 ea 09/24/20 vit C,E,zinc,Bw-prclk-5-lutein-zeaxanthin 250 mg-2.5 mg-0.5 mg capsule 1 cap PO DAILY vitamin 09/24/20 latanoprost 0.005 % eye drops 1 drp ophthalmic (eye) PRN PRN MACULAR DEGENRATION 02/24/21 simethicone 80 mg chewable tablet 80 mg PO 4X/DAY PRN Flatulence #30 tabs 12/07/21 vitamin E 268 mg (400 unit) capsule 800 unit PO DAILY vitamin #60 caps 02/08/22 Bilateral wrist splints #2 ea 06/07/22 Trulicity 4.5 mg/0.5 mL subcutaneous pen injector (dulaglutide) 4.5 mg (0.5 mL) subcut QWEEK diabetes #2 mL 07/27/22 pen needle, diabetic 32 gauge x 1/4 (Novofine 32) #200 ea 07/27/22 cholestyramine (with sugar) 4 gram oral powder 4 g PO DAILY digestion #348.6 grams 08/12/22 fluticasone propionate 50 mcg/actuation nasal spray,suspension 2 spray intranasal PRN PRN Nasal Congestion 09/06/22 ursodiol 250 mg tablet See Rx Instructions .Route .COMPLEX gallstones #180 tabs 10/14/22 lisinopril 2.5 mg tablet See Rx Instructions .Route .COMPLEX blood pressure #90 TABLETS 10/26/22 pantoprazole 40 mg tablet,delayed release 40 mg PO BID reflux #180 tabs 01/04/23 ezetimibe 10 mg tablet (Zetia) 10 mg PO DAILY #60 tabs 02/28/23 insulin lispro 100 unit/mL subcutaneous pen (Humalog KwikPen (U-100) Insulin) 12 unit subcut TID 02/28/23 Jardiance 10 mg tablet (empagliflozin) 10 mg PO DAILY #30 tabs 03/14/23 denosumab 60 mg/mL subcutaneous syringe (Prolia) 60 mg subcut [id number] bone health #1 mL 03/17/23 insulin degludec 100 unit/mL (3 mL) subcutaneous pen (Tresiba FlexTouch U-100 insulin) 40 unit (0.4 mL) subcut QHS #36 mL 07/11/23 duloxetine 60 mg capsule,delayed release See Rx Instructions .Route .COMPLEX #180 caps 08/01/23 cholecalciferol (vitamin D3) 1,250 mcg (50,000 unit) capsule 1,250 mcg PO QWEEK vitamin #30 caps 08/22/23 amitriptyline 100 mg tablet 200 mg (2 x 100 mg) PO QHS sleep #180 tabs 08/23/23 buspirone 10 mg tablet 10 mg PO TID mental health #270 tabs 08/23/23 cyclobenzaprine 10 mg tablet 5 - 10 mg (0.5 - 1 x 10 mg) PO TID PRN muscle spasm #270 tabs 08/23/23 loratadine 10 mg tablet 10 mg PO DAILY allergies #90 tabs 08/23/23 pregabalin 150 mg capsule 150 mg PO BID pain #180 caps 08/23/23 rimegepant 75 mg disintegrating tablet (Nurtec ODT) 75 mg PO DAILY PRN migraine headache #8 tabs 08/23/23 albuterol sulfate 90 mcg/actuation aerosol inhaler (Ventolin HFA) 1 - 2 puff inhalation Q4H PRN PRN Wheezing #1 inh 09/11/23 metoprolol tartrate 25 mg tablet 12.5 mg (1/2 x 25 mg) PO BID #30 tabs 09/22/23 apixaban 5 mg tablet (Eliquis) 10 mg (2 x 5 mg) PO BID #0 tabs 09/28/23 Hospital Course Operations None Procedures 2-D Echocardiogram Summary of Care Provided Minutes Spent on Discharge: 35 Hospital Course: Per HPI: YVES NIÑO, is a 68 F with a PMH as outlined who presents via the ED on 09/20/2023 with a complaint of shortness of breath. Her symptoms had been going on for over a week. She had been seen in the ED on 09/11/2023 for similar symptoms and associated chest heaviness. Workup then was reported as unremarkable. She was subsequently seen in the ED again for gout and discharged home on po prednisone and oxycodone. SHortness of breath however persisted so she came into the ED. She had an associated cough. Patient has oxygen at home that she uses for shortness of breath as needed. Upon arrival in the ED she was saturating at 76% on room air. She had also had a fever at home. Vitals with temperature of 98.5 Fahrenheit with pulse rate of 107, blood pressure 152/112 and respiratory rate of 30. She was saturating at 95% on 6 L of oxygen. CBC was unremarkable. Initial D-dimer was 1.63. Chemistry was significant for creatinine of 1.28 and initial troponin of 522. BNP was due to 6.2. CTA of the chest per my review showed large pulmonary emboli in the right main pulmonary artery and its branches. She has been admitted to be managed for acute hypoxic respiratory failure due to submassive PE with evidence of right heart strain. Hospital Course: 1.Acute hypoxic respiratory failure secondary to a submassive PE with right ventricular strain and COVID?68-year-old female presented to the hospital with shortness of breath going on for about a week prior to admission. She was found to have a submassive PE and COVID. She was started on Eliquis and she will need 7 more doses of the 10 mg of Eliquis starting tonight and then she can transition to 5 mg p.o. twice daily at the [facility]. She is also completed 9 days of her Decadron so this will be discontinued on discharge and she has completed remdesivir. She did have a 2D echo given the the findings of her CTA of the chest indicating a PE and her EF on echo was 45 to 50% with mild left ventricular systolic dysfunction and mild global ventricular hypokinesis with mild right ventricular systolic dysfunction and a mildly dilated right ventricle. She is already on lisinopril 2.5 mg daily and she takes from home 12.5 mg of p.o. metoprolol twice daily. She has had some intermittent episodes of hypotension though maps have remained above 65 and this is likely related to her PE and her inactivity while here in the hospital. There is no issue with holding her lisinopril or her metoprolol at the [facility] if necessary. I discussed with her the plan for discharge to the [facility] today and she expressed understanding of the risk benefits of going and would like to go today. 2. Acute CVA?unclear as to when symptoms began as she is had initially some encephalopathy. However, because of her encephalopathy and her continued encephalopathy a CT of the brain was done which initially was negative and she had an MRI of the brain that showed a very subtle focus of restricted diffusion about 3 mm in the peripheral aspect of the posterior limb of the left internal capsule of the thalamic capsular junction sick next thing a small acute infarct. She was already on aspirin and then was on Eliquis for the PE so no further antiplatelets could be added and she has an allergy to statins therefore she is on maximal therapy at this time. Her encephalopathy prior to discharge has resolved. 3. Type 2 diabetes, hypertension, anxiety, depression,, recent diagnosis of gout, history of migraines are all chronic medical conditions which complicate her care. Her home medications were continued where appropriate Physical Exam Narrative General: Alert, Oriented x3, Cooperative, No apparent distress HEENT: Atraumatic, PERRLA, EOMI, Normocephalic Oral: Moist Mucosa Neck: Supple, No JVD Lungs: Diminished, Normal air movement, No rhonchi, No wheeze, No rales Cardiovascular: Regular rate, Regular Rhythm, Normal S1, Normal S2, No murmurs Abdomen: Soft, Non Tender, Non-Distended, No Hepato-splenomegaly Extremities: No edema, Capillary Refill Less than 3 Seconds Skin: No rashes, No breakdown Musculoskeletal: No Tenderness to Palpation of Joints or Extremities Neurological: Moves all extremities, no focal deficits, Motor Exam 5/5 strength throughout, Sensory exam intact to light touch and pain Psych/Mental Status: Normal Affect, Appropriate Weight / BMI Weight Weight: 229 lb 8.019 oz Body Mass Index (BMI) 43.3 ABG / Lab / Microbiology Data 09/27/23 07:45 09/27/23 07:45 Laboratory: Laboratory Results - last 24 hr 09/27/23 16:52: POC Glucose 173 H 09/27/23 20:46: POC Glucose 171 H 09/28/23 08:02: POC Glucose 102 Microbiology: Microbiology 09/20/23 10:04 Blood Culture (Wb) - Anticubital Right Blood Culture - Final No growth in 5 days. 09/20/23 10:00 Blood Culture (Wb) - Anticubital Left Blood Culture - Final No growth in 5 days. 09/23/23 12:38 Stool Clostridioides difficile (PCR) - Final 09/20/23 09:56 Nasal Secretion SARS-CoV-2 & FLU Antigen (Rapid) - Final SARS-CoV-2 (COVID 19) D/C Instructions Discharge Diet: Low fat / Low cholesterol Weight Bearing Status: Weight bearing as tolerated Call your doctor if you observe: Fever of 101 or Higher, Shortness of breath, Dizziness, Swelling in the ankles and Chest pain Meaningful Use Info Meaningful Use Diagnoses (Choose all that apply): None applicable Discharge Plan Admission Admit Date/Time: 09/20/23 12:33 Primary Reason for Your Visit: PE Attending Provider: Darrin Murcia Primary Care Provider: Vamsi Epperson Consulting Providers: Arslan Amor; Shaista Sloan; Christina Tobias; Didi Sosa; Ondina Blas; Jeremiah Lackey; Krystyna Sneed; Ravindra Stack; Darius Lorenz; Joelle Evans; Lebron Delong; Roseann Stiles; Inga Pastrana; Mabel Padron; Tuan Cohen; Henok Sam; Santi Alvarado; Gila Lovell; Clarisse Abdul; Amara Cardenas Instructions Patient Instructions: Embolism Pulmonary Dc Discharge Orders/Prescriptions Prescriptions: New metoprolol tartrate 25 mg tablet 12.5 mg PO BID Qty: 30 1RF Eliquis 5 mg Tablet 10 mg PO BID Qty: 0 0RF Continued (DME) lancets [Accu-Chek Softclix Lancets] Misc See Rx Instructions .ROUTE .MEDSUPPLY Qty: 100 Rx Instructions: As directed, Test 4 times daily before meals and at bedtime (DME) Accu-Chek Christi Plus test strp Strip See Rx Instructions .ROUTE .MEDSUPPLY Qty: 10 Rx Instructions: As directed; Test 4 times daily before meals and at bedtime vit C,E,zinc,Zq-krlyj-8-lutein-zeaxanthin 250 mg-2.5 mg-0.5 mg capsule 250-2.5-0.5 mg capsule 1 cap PO DAILY (DME) CPAP See Rx Instructions .Route .MEDSUPPLY Qty: 1 Rx Instructions: 14 cm H2O (DME) blood-glucose meter Misc See Rx Instructions .ROUTE .MEDSUPPLY Qty: 1 Rx Instructions: As directed (DME) blood pressure monitor [Blood Pressure Kit] Kit See Rx Instructions .ROUTE .MEDSUPPLY Qty: 1 Rx Instructions: As directed aspirin 81 mg tablet,delayed release (DR/EC) 81 mg PO DAILY latanoprost 0.005 % drops 1 drp ophthalmic (eye) PRN PRN (Reason: MACULAR DEGENRATION) vitamin E 400 unit capsule 800 unit PO DAILY Qty: 60 5RF (DME) pen needle, diabetic [Novofine 32] 32 gauge x 1/4 needle See Rx Instructions .ROUTE .MEDSUPPLY Qty: 200 6RF Rx Instructions: As directed; 4x/day Trulicity 4.5 mg/0.5 mL pen injector 4.5 mg subcut QWEEK Qty: 2 4RF (DME) Bilateral wrist splints See Rx Instructions .Route .MEDSUPPLY Qty: 2 0RF Rx Instructions: As directed insulin lispro [Humalog KwikPen Insulin] 100 unit/mL insulin pen 12 unit subcut TID Rx Instructions: 12u with meals, 6u with snacks. +SSI 180-210+2; 211-240+3; 241-300+5; >300 +7 MDD 50 pantoprazole 40 mg tablet,delayed release (DR/EC) 40 mg PO BID Qty: 180 1RF buspirone 10 mg tablet 10 mg PO TID Qty: 270 1RF loratadine 10 mg tablet 10 mg PO DAILY Qty: 90 1RF amitriptyline 100 mg tablet 200 mg PO QHS Qty: 180 1RF Nurtec ODT 75 mg tablet,disintegrating 75 mg PO DAILY PRN (Reason: migraine headache) Qty: 8 5RF pregabalin 150 mg capsule 150 mg PO BID Qty: 180 1RF cyclobenzaprine 10 mg tablet 5 - 10 mg PO TID PRN (Reason: muscle spasm) Qty: 270 1RF fluticasone propionate 50 mcg/actuation spray,suspension 2 spray INTRANASAL PRN PRN (Reason: Nasal Congestion) Rx Instructions: administer into each nostril albuterol sulfate [Ventolin HFA] 90 mcg/actuation HFA aerosol inhaler 1 - 2 puff inhalation Q4H PRN PRN (Reason: Wheezing) Qty: 1 0RF simethicone 80 mg tablet,chewable 80 mg PO 4X/DAY PRN (Reason: Flatulence) Qty: 30 1RF cholestyramine (with sugar) 4 gram powder 4 g PO DAILY Qty: 348.6 0RF Rx Instructions: administer w/meal; avoid other meds within 1hr before or 4-6hr after dose ursodiol 250 mg tablet See Rx Instructions .ROUTE .COMPLEX Qty: 180 3RF Dose Instruction: TAKE 1 TABLET BY MOUTH TWICE DAILY Rx Instructions: TAKE 1 TABLET BY MOUTH TWICE DAILY lisinopril 2.5 mg tablet See Rx Instructions .ROUTE .COMPLEX Qty: 90 2RF Dose Instruction: TAKE 1 TABLET BY MOUTH EVERY DAY Rx Instructions: TAKE 1 TABLET BY MOUTH EVERY DAY ezetimibe [Zetia] 10 mg tablet 10 mg PO DAILY Qty: 60 2RF Jardiance 10 mg tablet 10 mg PO DAILY Qty: 30 6RF Prolia 60 mg/mL syringe 60 mg subcut [id number] Qty: 1 0RF Tresiba FlexTouch U-100 100 unit/mL (3 mL) insulin pen 40 unit SC QHS Qty: 36 1RF duloxetine 60 mg capsule,delayed release(DR/EC) See Rx Instructions .ROUTE .COMPLEX Qty: 180 1RF Dose Instruction: TAKE 2 CAPSULES BY MOUTH DAILY Rx Instructions: TAKE 2 CAPSULES BY MOUTH DAILY cholecalciferol (vitamin D3) 1,250 mcg (50,000 unit) capsule 1,250 mcg PO QWEEK Qty: 30 1RF Discontinued oxycodone-acetaminophen 5-325 mg tablet 1 tab PO Q6H PRN PRN (Reason: Pain) 3 Days Qty: 12 0RF Referrals / Follow Up: Sean Nagel MD [Med Staff - Active Staff] - Within 2 Weeks Vamsi Epperson MD [Primary Care Provider] - 09/29/23 2:15 pm Judah Mora MD [Non-Staff -Ordering Privileges] - 09/27/23 11:00 am Disposition Disposition (needs filled in before D/C Order can be placed): [facility] Facility Charges/Coding Visit Charges Inpatient E&M: 40173 Disch Hosp >30min
== END 2023-09-28 11:54 | DRG 177 ==
LOC: ED 11:53 → PCU 13:50
PROVIDERS: Admitting Provider Student in an Organized Health Care Education/Training Program; Emergency Provider Emergency Medicine; PCP Internal Medicine; Visit Provider Family Medicine
DX: U07.1 COVID-19 (principal); I26.09 Other pulmonary embolism with acute cor pulmonale; J96.01 Acute respiratory failure with hypoxia; I63.89 Other cerebral infarction; G92.8 Other toxic encephalopathy; Z68.41 Body mass index [BMI] 40.0-44.9, adult; N18.30 Chronic kidney disease, stage 3 unspecified; E11.22 Type 2 diabetes mellitus with diabetic chronic kidney disease; E66.01 Morbid (severe) obesity due to excess calories; Z79.4 Long term (current) use of insulin; F32.A Depression, unspecified; I12.9 Hypertensive chronic kidney disease with stage 1 through stage 4 chronic kidney disease, or unspecified chronic kidney disease; E78.00 Pure hypercholesterolemia, unspecified; M10.9 Gout, unspecified; G47.33 Obstructive sleep apnea (adult) (pediatric); Z79.52 Long term (current) use of systemic steroids; Z79.82 Long term (current) use of aspirin; Z79.84 Long term (current) use of oral hypoglycemic drugs; Z79.899 Other long term (current) drug therapy
CPT/HCPCS: 36415; 36600; 70450; 70496; 70498; 70551; 71045; 71275; 80048; 80053; 80076; 80307; 82803; 82962; 83605; 83880; 84075; 84484; 85025; 85379; 85610; 85730; 87040; 87428; 87493; 92526; 92610; 93005; 93306; 94002; 94003; 94640; 94762; 97110; 97112; 97116; 97161; 97164; 97166; 97168; 97530; 97535; 99252; 99284; J7050; Q9957; Q9967; A4216; G0463; J0248; J1940

== ENCOUNTER 2023-10-02 04:13 | Inpatient (IN) | payer MEDICARE, SELFPAY ==
[2023-10-02] VITALS (39 sets, daily range): BP systolic 66–154; BP diastolic 42–101; PULSE 63–83; RESP 12–18; TEMP 35.3–36.9; O2SAT 91–100; BMI 44.6; BMI 41.8
--- NOTE | 2023-10-02 04:25 | CT_ITS ---
INDICATION: altered mental status EXAMINATION: CT BRAIN - CT Head or Brain W/O Contrast Injection TECHNIQUE: Multiple axial images were obtained of the head without intravenous contrast. A radiation dose optimization technique was used for this scan. IV Contrast dosage and agent: None. RADIATION DOSAGE (If Supplied By Facility): CTDIvol = ( 44.99 ) mGy, DLP = ( 796.11 ) mGycm COMPARISON: 09/14/2023. FINDINGS: BRAIN PARENCHYMA: No intra- or extra-axial hemorrhage. No evidence of acute infarct. No intracranial mass or mass effect. There is preservation of the monzon/white matter interface. Posterior fossa structures are unremarkable. CSF SPACES: Appropriate for age. No hydrocephalus. Basal cisterns are patent. CALVARIUM, SKULL BASE, PARANASAL SINUSES AND MASTOID AIR CELLS: Mucosal thickening in the paranasal sinuses. Complete opacification of the right maxillary sinus. No discrete lytic or blastic abnormalities. ORBITS: Both globes, extraocular muscles, optic nerves and retrobulbar fat appear unremarkable. ASPECTS Score for Acute Strokes: 10 CT/Brain/Head without Contrast IMPRESSION: Mucosal thickening in the paranasal sinuses. Complete opacification of the right maxillary sinus. There is no acute intracranial abnormality. Electronically Signed: Jessica Daniel MD at 6:12 EST ,
--- NOTE | 2023-10-02 04:25 | EKG12_ITS ---
Test Reason : FALL Blood Pressure : / mmHG Vent. Rate : 067 BPM Atrial Rate : 067 BPM P-R Int : 238 ms QRS Dur : 106 ms QT Int : 408 ms P-R-T Axes : -06 -29 - degrees QTc Int : 431 ms Sinus rhythm with 1st degree A-V block Otherwise normal ECG Confirmed by TIFFANIE GLEASON, ADELINA ([id number]), film editor supervisor EN GUTIERREZ ([id number]) on 10/04/2023 9:35:32 AM Referred By: Confirmed By:ADELINA MORENO MD
--- NOTE | 2023-10-02 04:25 | CT_ITS ---
INDICATION: trauma EXAMINATION: CT CERVICAL SPINE - CT Spine Cervical W/O Contrast Injection TECHNIQUE: Helically acquired images were obtained of the cervical spine. 2D reformatted images were reviewed. A radiation dose optimization technique was used for this scan. IV Contrast dosage and agent: None. RADIATION DOSAGE (If Supplied By Facility): CTDIvol = ( 30.74 ) mGy, DLP = ( 640.01 ) mGycm COMPARISON: No relevant prior comparison study available FINDINGS: Normal craniovertebral junction. Normal anterior atlantoaxial articulation. Normal odontoid process. There is straightening of the normal cervical lordosis. Normal vertebral bodies and posterior osseous elements. C2-3: Normal endplates. Normal disc height and morphology. Normal central canal and intervertebral neuroforamina. C3-4, C4-5, C5-6, C6-7: Endplate spondylosis. Central and paracentral disc bulge. Degenerative changes of the bilateral facet joints and uncovertebral joints. Moderate to severe narrowing of the central canal and the bilateral intervertebral neural foramina. C7-T1: Normal endplates. Normal disc height and morphology. Normal central canal and intervertebral neuroforamina. Normal visualized soft tissue structures. CT/Spine Cervical without Contras IMPRESSION: Multilevel degenerative changes, as described above. Electronically Signed: Jessica Daniel MD at 6:26 EST ,
--- NOTE | 2023-10-02 04:27 | EX.ED.DYSGE1 ---
HPI History of Present Illness Chief Complaint: Fall Informant: patient, EMS and SNF Narrative Narrative: Patient sent in from [facility] after being found on the floor next to her recliner. It is unclear whether she fell. Patient is confused and answers the same question with different answers when asked repeatedly. She tells me she only has some pain in her left calf. Patient was admitted in late August with COVID-19 and pulmonary emboli. While here she had episodes of encephalopathy. 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 Discharge summary documents that her encephalopathy had resolved at the time of discharge. She is currently on Eliquis. [facility] Medical History Abnormal thyroid function test Anemia Anxiety Anxiety and depression Arthritis Back pain Bilateral lower extremity edema Blackout Chronic neck and back pain CKD (chronic kidney disease), stage III CPAP (continuous positive airway pressure) dependence Depression Diabetes Dietary restriction Difficulty balancing when standing Difficulty swallowing Dizziness Essential hypertension Fatigue Fatty liver Fibromyalgia Fibrosis of liver Flu vaccine need GERD (gastroesophageal reflux disease) Glaucoma Gout Hematuria High cholesterol History of echocardiogram History of pain when walking History of renal disease History of stress test History of thyroid nodule Hx of phlebitis Hyperlipidemia Insomnia Insulin dependent diabetes mellitus Leg cramps Limb weakness Liver disease Loss of hearing Lyme disease Macular degeneration Migraine headache Morbid obesity Myositis Non-smoker Obesity BENTLEY on CPAP Osteoporosis Polymyositis Restless legs Sensorineural hearing loss of both ears Shoulder pain Sinusitis Type 2 diabetes mellitus Vitamin D deficiency Wears glasses Home Medications CPAP #1 ea 09/24/20 [History Last Taken Unknown] aspirin 81 mg tablet,delayed release 81 mg PO DAILY heart health 09/24/20 [History Last Taken Unknown] blood pressure monitor (Blood Pressure Kit) #1 ea 09/24/20 [History Last Taken Unknown] blood sugar diagnostic (Accu-Chek Christi Plus test strips) #10 ea 09/24/20 [History Last Taken Unknown] blood-glucose meter #1 ea 09/24/20 [History Last Taken Unknown] lancets (Accu-Chek Softclix Lancets) #100 ea 09/24/20 [History Last Taken Unknown] latanoprost 0.005 % eye drops 1 drp ophthalmic (eye) PRN PRN MACULAR DEGENRATION 02/24/21 [History Last Taken Unknown] simethicone 80 mg chewable tablet 80 mg PO 4X/DAY PRN Flatulence #30 tabs 12/07/21 [Rx Last Taken Unknown] vitamin E 268 mg (400 unit) capsule 800 unit PO DAILY vitamin #60 caps 02/08/22 [Rx Last Taken Unknown] Bilateral wrist splints #2 ea 06/07/22 [Rx Last Taken Unknown] Trulicity 4.5 mg/0.5 mL subcutaneous pen injector (dulaglutide) 4.5 mg (0.5 mL) subcut QWEEK diabetes #2 mL 07/27/22 [Rx Last Taken Unknown] pen needle, diabetic 32 gauge x 1/4 (Novofine 32) #200 ea 07/27/22 [Rx Last Taken Unknown] cholestyramine (with sugar) 4 gram oral powder 4 g PO DAILY digestion #348.6 grams 08/12/22 [Rx Last Taken Unknown] fluticasone propionate 50 mcg/actuation nasal spray,suspension 2 spray intranasal PRN PRN Nasal Congestion 09/06/22 [History Last Taken Unknown] lisinopril 2.5 mg tablet See Rx Instructions .Route .COMPLEX blood pressure #90 TABLETS 10/26/22 [Rx Last Taken Unknown] pantoprazole 40 mg tablet,delayed release 40 mg PO BID reflux #180 tabs 01/04/23 [Rx Last Taken Unknown] ezetimibe 10 mg tablet (Zetia) 10 mg PO DAILY #60 tabs 02/28/23 [Rx Last Taken Unknown] insulin lispro 100 unit/mL subcutaneous pen (Humalog KwikPen (U-100) Insulin) 12 unit subcut TID 02/28/23 [History Last Taken Unknown] Jardiance 10 mg tablet (empagliflozin) 10 mg PO DAILY #30 tabs 03/14/23 [Rx Last Taken Unknown] denosumab 60 mg/mL subcutaneous syringe (Prolia) 60 mg subcut [id number] bone health #1 mL 03/17/23 [Rx Last Taken Unknown] insulin degludec 100 unit/mL (3 mL) subcutaneous pen (Tresiba FlexTouch U-100 insulin) 40 unit (0.4 mL) subcut QHS #36 mL 07/11/23 [Rx Last Taken Unknown] duloxetine 60 mg capsule,delayed release See Rx Instructions .Route .COMPLEX #180 caps 08/01/23 [Rx Last Taken Unknown] cholecalciferol (vitamin D3) 1,250 mcg (50,000 unit) capsule 1,250 mcg PO QWEEK vitamin #30 caps 08/22/23 [Rx Last Taken Unknown] amitriptyline 100 mg tablet 200 mg (2 x 100 mg) PO QHS sleep #180 tabs 08/23/23 [Rx Last Taken Unknown] buspirone 10 mg tablet 10 mg PO TID mental health #270 tabs 08/23/23 [Rx Last Taken Unknown] cyclobenzaprine 10 mg tablet 5 - 10 mg (0.5 - 1 x 10 mg) PO TID PRN muscle spasm #270 tabs 08/23/23 [Rx Last Taken Unknown] loratadine 10 mg tablet 10 mg PO DAILY allergies #90 tabs 08/23/23 [Rx Last Taken Unknown] pregabalin 150 mg capsule 150 mg PO BID pain #180 caps 08/23/23 [Rx Last Taken Unknown] rimegepant 75 mg disintegrating tablet (Nurtec ODT) 75 mg PO DAILY PRN migraine headache #8 tabs 08/23/23 [Rx Last Taken Unknown] albuterol sulfate 90 mcg/actuation aerosol inhaler (Ventolin HFA) 1 - 2 puff inhalation Q4H PRN PRN Wheezing #1 inh 09/11/23 [Rx Last Taken Unknown] metoprolol tartrate 25 mg tablet 12.5 mg (1/2 x 25 mg) PO BID #30 tabs 09/22/23 [Rx Last Taken Unknown] apixaban 5 mg tablet (Eliquis) 5 mg PO BID 10/02/23 [History Last Taken Unknown] ursodiol 250 mg tablet 250 mg PO DAILY gallstones 10/02/23 [History Last Taken Unknown] Allergy/AdvReac Type Severity Reaction Status Date / Time saliva substitute Allergy Severe Angioedema Verified 09/20/23 09:31 combination no.9 [From [employer] [facility]] gemfibrozil AdvReac Severe Myalgia Verified 09/20/23 09:31 [id number] Reductase AdvReac Severe muscle pain Verified 09/20/23 09:31 Inhibitor Family History Brother Diabetes Mother Diabetes Heart disease Hypertension Grandmother Diabetes Sister Diabetes Heart disease Hypertension Thyroid disorder Father Kidney disease Grandfather Kidney disease Surgical History H/O: hysterectomy History of bilateral knee arthroplasty History of cholecystectomy History of esophagogastroduodenoscopy (EGD) Hx of colonoscopy Social History Smoking Status: Never smoker second hand exposure: No alcohol intake: never substance use type: does not use yessenia/anglican: Yarsanism seatbelt use: always ROS ROS ED ROS Narrative Unreliable answers secondary to her mental status. EXAM Physical Exam Narrative Exam Narrative: Patient lying in bed no acute distress. She will answer questions with stimulation. No obvious sign of trauma. Const Vital Signs: 10/02/23 04:14 10/02/23 04:14 10/02/23 06:06 Temperature 96.8 F L Temperature Source Temporal Pulse Rate 69 66 Respiratory Rate 17 13 Respiratory Effort Normal Non-Labored Blood Pressure 154/101 H Blood Pressure Mean 118 Blood Pressure Source Pulse Ox 91 Oxygen Delivery Method Nasal Cannula Nasal Cannula Oxygen Flow Rate (L/min) 4 4 10/02/23 06:43 10/02/23 05:00 10/02/23 05:01 Temperature 95.6 F L Temperature Source Core Pulse Rate 67 66 Respiratory Rate 14 14 Respiratory Effort Blood Pressure 74/50 L 80/51 L 79/52 L Blood Pressure Mean 58 60 61 Blood Pressure Source Monitor Pulse Ox 99 Oxygen Delivery Method Room Air Oxygen Flow Rate (L/min) 10/02/23 05:21 10/02/23 06:00 10/02/23 06:59 Temperature 95.6 F L Temperature Source Core Pulse Rate 65 67 Respiratory Rate 14 14 Respiratory Effort Blood Pressure 66/42 L 91/52 L Blood Pressure Mean 50 65 Blood Pressure Source Pulse Ox 99 100 Oxygen Delivery Method Room Air Room Air Oxygen Flow Rate (L/min) 10/02/23 07:00 10/02/23 07:15 10/02/23 07:45 Temperature Temperature Source Pulse Rate 67 63 69 Respiratory Rate 13 Respiratory Effort Blood Pressure 96/60 102/64 103/60 Blood Pressure Mean 72 76 74 Blood Pressure Source Pulse Ox 99 Oxygen Delivery Method Room Air Oxygen Flow Rate (L/min) 10/02/23 08:00 10/02/23 08:30 10/02/23 08:45 Temperature 96 F L Temperature Source Core Pulse Rate 69 68 69 Respiratory Rate 12 Respiratory Effort Blood Pressure 115/75 109/75 98/58 L Blood Pressure Mean 88 86 71 Blood Pressure Source Pulse Ox 99 Oxygen Delivery Method Room Air Oxygen Flow Rate (L/min) Positive obese Nutritional Appearance: obese HEENT Reports dry mucous membranes HEENT Narrative: Scant amount of dried blood on the lower lip. No obvious tongue injuries. Mouth ED: Yes dry mucous membranes Mouth: dry mucous membranes Eyes EOMs intact bilaterally Chest Wall inspection of chest normal and palpation of chest normal Resp normal respiratory effort and clear to auscultation bilaterally Cardio regular rate and regular rhythm GI non-tender Palpation: soft Extremity normal to inspection Extremity Narrative: No pain with logroll of the legs. Neuro Neuro Narrative: A&O x 2. Answers questions, but will give different answers when asked repeatedly. Skin no rashes or lesions noted Skin Narrative: Old appearing ecchymosis noted to the right forearm. 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 IV line initiated. EKG obtained to evaluate for cardiac arrhythmia/ischemia. Chest x-ray obtained to evaluate for acute lung pathology, cardiac size, or mediastinal abnormality. Labwork obtained to evaluate for leukocytosis, anemia, and electrolyte derangement. CT scan of the head and C-spine obtained to evaluate for trauma. ABG obtained due to concern for possible CO2 retention. History & Record Review Additional record(s) reviewed:: Prior inpatient record, Prior ED visit and Prior labs Lab Data Attestation: I reviewed the patient's lab results. Labs: Laboratory Results - last 24 hr 10/02/23 10/02/23 10/02/23 04:18 04:45 04:48 WBC 11.0 RBC 3.93 L Hgb 11.4 L Hct 36.9 L MCV 93.9 MCH 29.0 MCHC 30.9 L RDW Std Deviation 53.7 H RDW Coeff of Paulo 15.4 H Plt Count 225 MPV 11.8 Immature Gran % (Auto) 0.500 Neut % (Auto) 85.1 H Lymph % (Auto) 10.0 L [place] % (Auto) 3.6 Eos % (Auto) 0.6 Baso % (Auto) 0.2 Absolute Neuts (auto) 9.4 H Absolute Lymphs (auto) 1.10 Nucleated RBC % 0 PT 15.6 H INR 1.2 APTT 29.8 Sodium 136 Potassium 5.8 H Chloride 109 H Carbon Dioxide 19.0 L Anion Gap 8 BUN 91 H Creatinine 2.75 H Estim Creat Clear Calc 14.77 Est GFR (MDRD) Af Amer 22 L Est GFR (MDRD) Non-Af 18 L BUN/Creatinine Ratio 33.1 H Glucose 163 H Lactic Acid Calcium 9.1 Total Bilirubin 0.40 Direct Bilirubin 0.08 AST 19 ALT 25 Alkaline Phosphatase 124 H Ammonia 17.0 Troponin I High Sens 22 Total Protein 6.3 L Albumin 2.8 L Globulin 3.5 TSH 3.88 H Urine Color Urine Clarity Urine pH Ur Specific Nenzel Urine Protein Urine Glucose (UA) Urine Ketones Urine Occult Blood Urine Nitrite Urine Bilirubin Urine Urobilinogen Ur Leukocyte Esterase Urine RBC Urine WBC Ur Squamous Epith Cells Urine Bacteria Urine Mucus POC Glucose 154 H 10/02/23 10/02/23 10/02/23 05:51 06:00 06:20 WBC RBC Hgb Hct MCV MCH MCHC RDW Std Deviation RDW Coeff of Paulo Plt Count MPV Immature Gran % (Auto) Neut % (Auto) Lymph % (Auto) [place] % (Auto) Eos % (Auto) Baso % (Auto) Absolute Neuts (auto) Absolute Lymphs (auto) Nucleated RBC % PT INR APTT Sodium Potassium Chloride Carbon Dioxide Anion Gap BUN Creatinine Estim Creat Clear Calc Est GFR (MDRD) Af Amer Est GFR (MDRD) Non-Af BUN/Creatinine Ratio Glucose Lactic Acid 0.6 Calcium Total Bilirubin Direct Bilirubin AST ALT Alkaline Phosphatase Ammonia Troponin I High Sens Total Protein Albumin Globulin TSH Urine Color Yellow Urine Clarity Clear Urine pH 5.0 Ur Specific Nenzel 1.020 Urine Protein 30 H Urine Glucose (UA) 50 H Urine Ketones Negative Urine Occult Blood Negative Urine Nitrite Negative Urine Bilirubin Negative Urine Urobilinogen Normal Ur Leukocyte Esterase 500 H Urine RBC 0 SEEN Urine WBC 10-25 SEEN Ur Squamous Epith Cells 0-5 SEEN Urine Bacteria 1+ Urine Mucus 0 SEEN POC Glucose 155 H ABG Data ABG results: ABG 10/02/23 04:47 Specimen Type ART Sample Site R Radial pH 7.23 L Bicarbonate Actual 19.7 L Total CO2 21 Base Excess -8 L O2 Saturation 97 O2 % 2.0 ABG pCO2 47.2 H ABG pO2 110 H Raphael Test Positive O2 Delivery Device Cannula Vent Mode Not entered Radiography Chest X-Ray - ED: 1 View, Read by ED Physician, Chronic Changes and No Infiltrates Diagnostic Testing: Clinical Impression(s) from Imaging Studies Brain CT 10/02/23 04:25 IMPRESSION: Mucosal thickening in the paranasal sinuses. Complete opacification of the right maxillary sinus. There is no acute intracranial abnormality. Electronically Signed: Jessica Daniel MD at 6:12 EST , Cervical Spine CT 10/02/23 04:25 IMPRESSION: Multilevel degenerative changes, as described above. Electronically Signed: Jessica Daniel MD at 6:26 EST , Chest X-Ray 10/02/23 05:15 IMPRESSION: Persistent bibasilar atelectasis, no interval change since the previous study Electronically Signed: Jessica Daniel MD at 6:06 EST , EKG Initial EKG: Attestation: I personally reviewed and interpreted this EKG as follows: Interpretation: Sinus Rhythm (Sinus at 67 with no acute ischemia.) Treatment and Re-Evaluation :: Patient can ABG on arrival due to concern for possible CO2 retention. pH is 7.229, pCO2 is 47, pO2 was 109, sat is 97%. This is actually improved when compared to prior ABGs in the computer from her recent stay in August. Patient sent for CT scan of the head and C-spine. They show no evidence of acute findings. Portable chest x-ray per my interpretation reveals chronic changes with no focal infiltrate. Radiology interpretation reviewed and agrees. When the patient returned from CT I was notified by nursing staff that her blood pressures are now low in the 70s and 80s systolic. IV fluid boluses are given. Blood pressure remains low following this and she started on Levophed. Blood work reveals a normal white count at 11.0 with a hemoglobin of 11.4. 85% neutrophils noted. Coags are unremarkable other than a PT 15.6. Chemistry studies reveal a potassium of 5.8, bicarb 19, BUN 91, creatinine 2.75. Most recent creatinine is 1.47. LFTs are unremarkable. Patient's blood sugar is checked multiple times and she has not been hypoglycemic. Lactic acid is normal at 0.6. On review of the patient's assisted medications, it does appear she was given Flexeril at 115 this morning. Her MAR for September was sent along with her and she had not received that medicine prior to today. Patient continues to be obtunded. She will grimace with firm sternal rub. Nursing staff did state that when they put in the Mcmahon catheter she raised her head and said a few words. This time she will require admission to ICU for close monitoring and further testing. I will speak with hospitalist. I went back in to reexamine the patient again. With loud voice patient would open her eyes and look at me. I asked her if she knew where she was and she said no. She is on low-dose Levophed for blood pressure support and systolic pressure is currently 103. Urinalysis returns with 1+ bacteria and 10-25 white cells. Urine culture has been sent I will give her a dose of Rocephin here. Patient has been given another liter IV fluids and Levophed turned off to further monitor her blood pressure. She will be observed for short time before determining which floor patient needs to be assigned to. Discharge Plan Dx/Rx/DC Orders Clinical Impression: Encephalopathy, Altered mental status, Hypotension Disposition Disposition: Acute Care [facility]
--- OUTSIDE RECORDS SUMMARY | 2023-10-02 04:29 | XMS RPT_ITS | CCD ---
Author Name Unknown Address [id number] [place] [address] Organization [facility] Care Team Providers Care Shift Supervisor Melting Name Role Phone GAIL CUADRA Unavailable Unavailable [...] Primary Care Provider Ole Faulkner MD Unavailable [phone] Oleghe, Efewongbe B Primary Care Provider Ole Faulkner MD Unavailable [phone] Oleghe, Efewongbe B Primary Care Provider Oleghe, Efewongbe B Primary Care Provider Ole Faulkner MD Unavailable TIFFANY WALDEN Attending Unavailable OLEGHE, EFEWONGBE Primary Care Unavailable TOWANDA, OLE Attending Unavailable STEPHANIE PEREIRA Referring Unavailable [...] Date of Onset Reaction(s) [facility] ([facility] Other (See Comments) [place] (20 sources) Biotin Drug Allergy 3 Anaphylaxis [facility] (20 sources) HMG-CoA reductase inhibitor Propensity to adverse reactions 3 Other [facility] (4 sources) Sodium Fluoride Drug Allergy 3 Shortness of breath [facility] Medications Current Medications Medication Drug Class(es) [...] Problem Classification Problem Date Documented Date Episodic/Chronic Anxiety disorders (20 sources) Mixed anxiety and [...] Classification Problem Date Documented Da te Episodic/Chronic Abdominal pain (3 sources) Indigestion; Translations: [Epigastric pain] Onset: 06-23-2023 06-23-2023 Episodic Other aftercare (20 sources) Surgical follow-up; Translations: [...] Time Vital Sign Value Performing Clinician Faci [facility] 08-29-2023 11:35-0500 Diastolic blood pressure 86 mm[Hg] Ole Faulkner MD Work Phone: [email or web address] 08-29-2023 11:35-0500 Heart rate 75 /min Ole Faulkner MD Work Phone: [facility] 08-29-2023 11:35-0500 Respiratory rate 18 /min Ole Faulkner MD Work Phone: [email or web address] 08-29-2023 11:35-0500 SaO2% (BldA) [Mass fraction] 98 % Ole Faulkner MD Work Phone: [email or web address] 08-29-2023 11:35-0500 Systolic blood pressure 128 mm[Hg] Ole Faulkner MD Work Phone: [facility] 08-29-2023 11:17-0500 Body temperature 97.5 [degF] Ole Faulkner MD Work Phone: [facility] 08-08-2023 10:05-0500 Body height 154.3 cm Brent Bang MD Work Phone: [facility] 08-08-2023 10:05-0500 Body mass index (BMI) [Ratio] 43.25 kg/m2 Brent Bang MD Work Phone: [facility] 08-08-2023 10:05-0500 Body weight 102.97 kg Brent Bang MD Work Phone: [facility] 08-08-2023 10:05-0500 Diastolic blood pressure 85 mm[Hg] Brent Bang MD Work Phone: [facility] 08-08-2023 10:05-0500 Heart rate 92 /min Brent Bang MD Work Phone: [facility] 08-08-2023 10:05-0500 Systolic blood pressure 131 mm[Hg] Brent Bang MD Work Phone: [facility] 07-25-2023 09:11-0400 Body height 154.3 cm Brent Bang MD Work Phone: [facility] 07-25-2023 09:11-0400 Body mass index (BMI) [Ratio] 43.74 kg/m2 Brent Bang MD Work Phone: [facility] 07-25-2023 09:11-0400 Body weight 104.15 kg Brent Bang MD Work Phone: [facility] 07-25-2023 09:11-0400 Diastolic blood pressure 85 mm[Hg] Brent Bang MD Work Phone: [facility] 07-25-2023 09:11-0400 Heart rate 93 /min Brent Bang MD Work Phone: [facility] 07-25-2023 09:11-0400 Systolic blood pressure 127 mm[Hg] Brent Bang MD Work Phone: [facility] 06-23-2023 10:20-0400 Diastolic blood pressure 97 mm[Hg] Ole Faulkner MD Work Phone: [facility] 06-23-2023 10:20-0400 Heart rate 91 /min Ole Faulkner MD Work Phone: [facility] 06-23-2023 10:20-0400 SaO2% (BldA) [Mass fraction] 95 % Ole Faulkner MD Work Phone: [email or web address] 06-23-2023 10:20-0400 Systolic blood pressure 113 mm[Hg] Ole Faulkner MD Work Phone: [facility] 06-23-2023 09:59-0400 Body temperature 98.2 [degF] Ole Faulkner MD Work Phone: [facility] 06-23-2023 09:59-0400 Respiratory rate 16 /min Ole Faulkner MD Work Phone: [facility] 06-23-2023 09:28-0400 Body height 154.3 cm Ole Faulkner MD Work Phone: [facility] 06-23-2023 09:28-0400 Body mass index (BMI) [Ratio] 44.39 kg/m2 Ole Faulkner MD Work Phone: [email or web address] 06-23-2023 09:28-0400 Body weight 105.69 kg Ole Faulkner MD Work Phone: [facility] 02-18-2023 13:36-0400 Body height 154.[address] Work Phone: [facility] 02-18-2023 13:36-0400 Body mass index (BMI) [Ratio] 44.5 kg/m2 Estephania Winter RD Work Phone: [facility] 02-18-2023 13:36-0400 Body weight 105.[address] Work Phone: [facility] 05-20-2020 11:49-0400 BMI (Body Mass Index) 40.24 kg/m2 [facility] [place], 05-20-2020 11:49-0400 Body Temperature 98.2 [degF] [facility] [place] 05-20-2020 11:49-0400 Body weight 99.79 kg [facility] 05-20-2020 11:49-0400 BP Diastolic 89 mm[Hg] Cheng [facility] [place] [facility] 05-20-2020 11:49-0400 BP Systolic 143 mm[Hg] [facility] [place] [facility] [place] 05-20-2020 11:49-0400 Height 157.5 cm [facility] [place] [facility] [place] 05-20-2020 11:49-0400 Pulse (Heart Rate) 89 /min [facility] [place], [facility] 05-20-2020 11:49-0400 Pulse Oximetry 98 % [facility] [place] [facility] [place] 05-20-2020 11:49-0400 Respiratory Rate 16 /min [facility] Encounters Encounter Date Encounter Type Care Provider Facility Start: 09-13-[address] Work Phone: [facility] [place] Procedures Date Procedure Procedure Detail Performing Clinician Start: 09-07-2023 Adult depression scr eening assessment Genet Rizo RD Work Phone: Start: 06-30-2023 Gastric emptying cynthia ging study Bernadine Alvarado NP Work Phone: Start: 09-22-2021 Mammography Estephania ludwig [...] limited Jack Rosa Work Phone: Start: 02-26-2020 L[employer]OP[employer] WORKER EVAL [employer] TREAT ZAC DENNIS Start: 02-25-2020 Swallowing funcj w/cineradiograpy/vidradiog EDGAR DENNIS Start: 11-22-2019 Parathyroid planar i maging w/wo subtraction EDGAR DENNIS Start: 11-22-2019 Parathyroid planar i maging w/wo subtraction Edgar Dennis Work Phone: Start: 11-10-2019 Us soft tissue head & neck real time imge docm EDGARAAYUSH DENNIS Start: 11-10-2019 Echo tthrc r-t 2d w/ wom-mode compl spec&colr d EDGAR DENNIS Start: 11-10-2019 Echo transthorac r-t 2d w/wo m-mode rec comp EDGAR DENNIS Plan of Treatment Date Care Activity Detail Author Start: 09-28-2026 Colon cancer screen colonoscopy Colon cancer screen colonoscopy [facility] Work Phone: Start: 09-28-2026 Screening for malignant neoplasm of colon Colon cancer [place] [facility] [place] Start: 07-29-2026 DTaP/Tdap/Td vaccine (2 - Td) DTaP/Tdap/Td vaccine (2 - Td) [facility] Work Phone: Start: 07-29-2026 DTaP/Tdap/Td Vaccines (2 - Td or Tdap) DTaP/Tdap/Td Vaccines (2 - Td or Tdap) [facility] Start: 09-07-2024 Depression Screening Depression Screening [facility] Start: 09-05-2023 End: 09-05-2023 Telemedicine consultation with patient 09/05/2023 2:00 PM EST Telemedicine [facility] [place] [address] [place] [address] [place] [address] [facility] [place] Start: 08-29-2023 End: 08-29-2023 Admission to same day surgery center 08/29/2023 12:00 PM EST - 08/29/2023 12:[address] [facility] Endoscopy [address] [place] [address] Ole Faulkner MD [address] [place] [address] EGD WITH BIOPSY [74965 (CPT )] [facility] Endoscopy Immunizations Immunization Date Immunization Notes Care Provider Fa cility 06-26-2021 influenza virus vacc ine, unspecified formulation Brent Bang MD Work Phone: [facility] 05-27-2021 influenza virus vacc ine, unspecified formulation Estephania Winter RD Work Phone: [facility] 06-13-2019 influenza virus vacc ine, unspecified formulation [facility] Work Phone: 01-29-2019 zoster recombinant adjuvanted vaccine (SHINGRIX) 50 MCG/0.5ML SUSR injection [facility] Work Phone: 07-26-2018 Influenza Vaccine, unspecified formulation [facility] Phone: 07-26-2018 influenza, injectabl e, quadrivalent, contains preservative [facility] Phone: 08-22-2017 Influenza Vaccine, unspecified formulation [facility] Work Phone: 08-22-2017 influenza virus vacc ine, unspecified formulation [facility] Work Phone: 08-22-2017 influenza, injectabl e, quadrivalent, contains preservative [facility] Phone: 08-22-2017 pneumococcal conjuga te vaccine, 13 valent [facility] Phone: 07-29-2016 pneumococcal polysaccharide vaccine, 23 valent [facility] Work Phone: 07-29-2016 tetanus toxoid, redu sadaf diphtheria toxoid, and acellular pertussis vaccine, adsorbed [facility] Work Phone: Payers Date Payer Category Payer Medicare [employer] MEDICARE UHC AARP MEDICARE ADVANTAGE [id number] 2022-Present [phone] [address] [address] [place] [address] Medicare HMO [id number] 2019 Medicare [place] [employer] xxxxxxxxx 2019-Present xxxxxxxxx [id number] 2019 Medicare UHC MEDICARE UHC MEDICARE COMPLETE [id number] 2019-Present [id number] .[id number] 2019 Medicare [id number] .[id number] 2018 Unknown [facility] xxxxxxxxxxx 2018-Present [phone] [address] [place] [address] xxxxxxxxxxx [id number] [id number] 2018 Unknown [id number] 1955 Unknown [id number] 2.16.840.1.427238.3.579.2.182 1955 Unknown [id number] 2.16.840.1.607688.3.579.2.182 1955 Unknown [id number] 2.16.840.1.634326.3.579.2.182 1955 Unknown [id number] 2.16.840.1.445285.3.579.2.182 1955 Unknown [id number] 2.16.840.1.687318.3.579.2.182 1955 Unknown [id number] 2.16.840.1.528110.3.579.2.182 1955 Unknown [id number] 2.16.840.1.114056.3.579.2.182 1955 Unknown [id number] 2.16.840.1.071427.3.579.2.182 1955 Unknown [id number] 2.16.840.1.297634.3.579.2. 1955 Unknown [id number] 2.16.840.1.200043.3.579.2.182 1955 Unknown [id number] 2.16.840.1.755809.3.579.2.182 1955 Unknown [id number] 2.16.840.1.654051.3.579.2.182 1955 Unknown [id number] 2.16.840.1.484941.3.579.2. 1955 Unknown [id number] 2.16.840.1.948879.3.579.2.182 1955 Unknown [id number] 2.16.840.1.763805.3.579.2.182 1955 Unknown [id number] 2.16.840.1.339919.3.579.2.182 1955 Unknown [id number] 2.16.840.1.860180.3.579.2. 1955 Unknown [id number] 2.16.840.1.579535.3.579.2.182 1955 Unknown [id number] 2.16.840.1.241562.3.579.2.182 1955 Unknown [id number] 2.16.840.1.745971.3.579.2.182 Social History Date Type Detail Facility Start: 10-31-2019 End: 02-08-2023 Tobacco smoking status NHIS Never smoker [facility] Phone: Start: 10-31-2019 End: 03-27-2020 Alcohol intake Current non-drinker of alcohol (finding) [facility] Phone: Sex Assigned At Female [facility] Phone: Exposure to SARS-CoV -2 (event) Unable to assess [facility] Start: 03-27-2020 End: 02-08-2023 Tobacco use and exposure Never used [facility] Start: 05-20-2020 Alcohol intake Lifetime non-d gabriel (finding) [facility] Start: 05-20-2020 History SDOH Alcohol Frequency 1 [facility] Start: 02-08-2023 End: 05-12-2023 Exposure to SARS-CoV-2 (event) Not sure [facility] Start: 02-08-2023 Alcohol intake Ex-drinker (finding) [facility] Start: 1955 Sex Assigned At Not on file [facility] Start: 02-08-2023 End: 09-07-2023 History of Social function [facility] Start: 02-08-2023 End: 09-07-2023 Tobacco use panel [facility] Medical Equipment Procedure Code Equipment Code Equipment Origin al Text Equipment Identifier Dates Use TWICE DAILY [id number] Start: 06-20-2019 Pt test 4x daily befire meals and bedtime dx e11.65 [id number] Start: 03-26-2019 1 Device by Does not apply route 4 times daily (before meals and nightly) [id number] Start: 03-26-2019 Test 4x daily Dx E11.65 [id number] Start: 01-09-2020 Test 4 times emanuel ly before meals and bedtime [id number] Start: 01-09-2020 Use 4 times axel y (before meals and nightly) [id number] Start: 04-02-2020 Clinical Notes 04-21-2021 to 09-22-2023 Telephone Encounter - Bernadine Alvarado NP - 09/22/2023 11:06 AM ESTTelephone Encounter - Bernadine Alvarado NP - 09/22/2023 11:06 AM ESTTelephone Encounter - Genet Rizo RD - 09/22/2023 10:49 AM EST Note Date & Type Note Facility 09-22-2023 Telephone encounter Note Noted. [facility] Phone: 09-22-2023 Miscellaneous Notes Noted. Third attempt to reach patient to discuss labs and unsuccessful. Will send letter via mail asking patient to call office regarding recommended vitamin replacement therapy. Will recheck labs as needed following call back. Attempted to call patient regarding labs, however went to voicemail and mailbox is full. Will send another MyChart message to follow-up on labs. Preop TB Labs (09/01/23) Iron: 45 (L) GFR: 36 (L) -- defer to PCP Lipids -- defer to PCP Sending MyChart message to patient to discuss labs. documented in this encounter [facility] 09-22-2023 Telephone encounter Note Third attempt to reach patient to discuss labs and unsuccessful. Will send letter via mail asking patient to call office regarding recommended vitamin replacement therapy. Will recheck labs as needed following call back. [facility] Phone: 09-21-2023 Telephone encounter Note Attempted to call patient regarding labs, however went to voicemail and mailbox is full. Will send another GI Trackt message to follow-up on labs. [facility] 09-13-2023 Telephone encounter Note Preop TB Labs (09/01/23) Iron: 45 (L) GFR: 36 (L) -- defer to PCP Lipids -- defer to PCP Sending MyChart message to patient to discuss labs. [facility] 09-05-2023 History of Present illness Narrative [facility] BARIATRIC NUTRITION ASSESSMENT / DIET & EXERCISE [...] was unable to use video. Patient location: VV Patient Location: Home. This patient encounter is [...] stated that they are currently in the [facility]. If the patient is a minor, permission has been obtained by the parent or guardian for the patient to receive medical care at this visit. Bariatric Nutrition Assessment completed by: Estephania Winter RD documented in this encounter [facility] 08-29-2023 Note Patient: Shawnee das Procedure Summary Date: 08/29/23 Room / Location: [facility] / [facility] Gastroenterology Anesthesia Start: 1101 Anesthesia Stop: 111 Procedure: EGD WITH BIOPSY Diagnosis: GERD (gastroesophageal [...] once all PACU criteria has been met. [facility] 08-29-2023 Note Patient: Shawnee das Procedure Summary Date: 08/29/23 Room / Location: [place] [address] / [facility] Gastroenterology Anesthesia Start: 1101 Anesthesia Stop: 1116 Procedure: EGD WITH BIOPSY Diagnosis: GERD (gastroesophageal [...] opportunity for questions and acknowledgement of understanding. [facility] 08-29-2023 Note Endoscopy Center- [facility] Patient Name: Shawnee Mohr Procedure Date: 08/29/2023 10:57 AM Gender: Female Date of : 1955 Age: 68 Admit Type: Outpatient Note Status: Finalized Endoscopist: Ole Faulkner MD, [id number] Procedure: Upper GI endoscopy Indications: Heartburn Findings: [...] immediate complications. Procedure Code(s): --- Professional --- 46628, Esophagogastroduodenoscopy, flexible, transoral; with biopsy, single or multiple --- Technical --- 68129, Esophagogastroduodenoscopy, flexible, transoral; with biopsy, single or multiple Diagnosis Code(s): --- Professional --- K29.70, Gastritis, unspecified, without bleeding K44.9, Diaphragmatic hernia without obstruction or gangrene R12, Heartburn --- Technical --- K29.70, Gastritis, unspecified, without bleeding K44.9, Diaphragmatic hernia without obstruction or gangrene R12, Heartburn CPT copyright 2021 [employer]. All rights reserved. The codes documented in this report are preliminary and upon television installer review may be revised to meet current compliance requirements. Attending Participation: I personally performed the entire procedure. Ole Faulkner MD. Ole Faulkner MD 08/29/2023 12:32:54 PM This report has been signed electronically. Number of Addenda: 0 Note Initiated On: 08/29/2023 10:57 AM [facility] 08-29-2023 Note Patient: Shawnee das Procedure Information Date/Time: 08/29/23 1200 Procedure: EGD WITH BIOPSY - 20 mins Location: [place] [address] / [facility] Gastroenterology Providers: Ole Faulkner MD Relevant Problems [...] CHOLECYSTECTOMY Comment: Freddy MEDINA 2018: HYSTERECTOMY Comment: [place] No date: TOTAL KNEE ARTHROPLASTY; Right Comment: [...] found for this or any previous visit. [facility] 08-29-2023 Note Endoscopy History an d Physical [...] Past Surgical History: Procedure Laterality Date CHOLECYSTECTOMY [place] W [place] HYSTERECTOMY 2018 [place] TOTAL KNEE ARTHROPLASTY Right [place] [facility] [...] understanding and willingness to proceed with plan. [facility] 08-29-2023 Note Formatting of this n ote might be different from the original. [facility] Name: Shawnee Mohr Procedure Date: 08/29/2023 10:57 AM Gender: Female Date of : 1955 Age: 68 Admit Type: Outpatient Note Status: Finalized Endoscopist: Ole Faulkner MD, [id number] Procedure: Upper GI endoscopy Indications: Heartburn Findings: [...] immediate complications. Procedure Code(s): --- Professional --- 63347, Esophagogastroduodenoscopy, flexible, transoral; with biopsy, single or multiple --- Technical --- 85374, Esophagogastroduodenoscopy, flexible, transoral; with biopsy, single or multiple Diagnosis Code(s): --- Professional --- K29.70, Gastritis, unspecified, without bleeding K44.9, Diaphragmatic hernia without obstruction or gangrene R12, Heartburn --- Technical --- K29.70, Gastritis, unspecified, without bleeding K44.9, Diaphragmatic hernia without obstruction or gangrene R12, Heartburn CPT copyright 2021 [employer]. All rights reserved. The codes documented in this report are preliminary and upon television installer review may be revised to meet current compliance requirements. Attending Participation: I personally performed the entire procedure. Ole Faulkner MD. Ole Faulkner MD 08/29/2023 12:32:54 PM This report has been signed electronically. Number of Addenda: 0 Note Initiated On: 08/29/2023 10:57 AM [facility] 08-29-2023 Note Formatting of this n ote might be different from the original. [facility] Patient Name: Shawnee Mohr Procedure Date: 08/29/2023 10:57 AM Gender: Female Date of : 1955 Age: 68 Admit Type: Outpatient Note Status: Finalized Endoscopist: Ole Faulkner MD, [id number] Procedure: Upper GI endoscopy Indications: Heartburn Findings: [...] immediate complications. Procedure Code(s): --- Professional --- 95821, Esophagogastroduodenoscopy, flexible, transoral; with biopsy, single or multiple --- Technical --- 60939, Esophagogastroduodenoscopy, flexible, transoral; with biopsy, single or multiple Diagnosis Code(s): --- Professional --- K29.70, Gastritis, unspecified, without bleeding K44.9, Diaphragmatic hernia without obstruction or gangrene R12, Heartburn --- Technical --- K29.70, Gastritis, unspecified, without bleeding K44.9, Diaphragmatic hernia without obstruction or gangrene R12, Heartburn CPT copyright 2021 [employer]. All rights reserved. The codes documented in this report are preliminary and upon television installer review may be revised to meet current compliance requirements. Attending Participation: I personally performed the entire procedure. Ole Faulkner MD. Ole Faulkner MD 08/29/2023 12:32:54 PM This report has been signed electronically. Number of Addenda: 0 Note Initiated On: 08/29/2023 10:57 AM [facility] 08-29-2023 Miscellaneous Notes [facility] Patient Name: Shawnee Mohr Procedure Date: 08/29/2023 10:57 AM Gender: Female Date of : 1955 Age: 68 Admit Type: Outpatient Note Status: Finalized Endoscopist: Ole Faulkner MD, [id number] Procedure: Upper GI endoscopy Indications: Heartburn Findings: [...] immediate complications. Procedure Code(s): --- Professional --- 50302, Esophagogastroduodenoscopy, flexible, transoral; with biopsy, single or multiple --- Technical --- 03282, Esophagogastroduodenoscopy, flexible, transoral; with biopsy, single or multiple Diagnosis Code(s): --- Professional --- K29.70, Gastritis, unspecified, without bleeding K44.9, Diaphragmatic hernia without obstruction or gangrene R12, Heartburn --- Technical --- K29.70, Gastritis, unspecified, without bleeding K44.9, Diaphragmatic hernia without obstruction or gangrene R12, Heartburn CPT copyright 2021 [employer]. All rights reserved. The codes documented in this report are preliminary and upon television installer review may be revised to meet current compliance requirements. Attending Participation: I personally performed the entire procedure. Ole Faulkner MD. Ole Faulkner MD 08/29/2023 12:32:54 PM This report has been signed electronically. Number of Addenda: 0 Note Initiated On: 08/29/2023 10:57 AM documented in this encounter [facility] 08-29-2023 History and physical note Images [...] Past Surgical History: Procedure Laterality Date CHOLECYSTECTOMY [place] [facility] [place]STERECTOMY [place] TOTAL KNEE ARTHROPLASTY Right [place] [facility] [...] understanding and willingness to proceed with plan. N [facility] Work Phone: 08-29-2023 History and physical note Images [...] Past Surgical History: Procedure Laterality Date CHOLECYSTECTOMY [place] TOTAL KNEE ARTHROPLASTY Right [place] [facility] [...] proceed with plan. documented in this encounter [facility] 08-22-2023 Telephone encounter Note Spoke with this patient, she has been scheduled for phone visit for Nut with MB [facility] 08-22-2023 Miscellaneous Notes Spoke with this patient, she has been scheduled for phone visit for Nut with MB Call to patient to schedule with MB, had to [facility] asking for a call back to [...] she has been rescheduled for 07/[address] [place] [address] Bang. Please call patient to schedule d/e with Dr. Bang. Patient no showed April visit which was her 2nd. Spoke to patient on the phone and let her know that someone would reach out for scheduling. Authorization for Testing Initiated. Company Name & Number Contacted for Auth: [employer] Name of [employer]rel [employer] Matting Machine Operator: Laxmi Hernandez Name of Procedure: GES Cpt Code: 91859 Diagnosis Code: E11.9, K30 Location of Procedure: Is Auth Required: Call Reference #: [id number] Pending Case #: Clinical Reviewer: Additional Info if given: Approved Case reference: [id number] Date Range for Approved Auth: 06/28/2023 - 08/12/2023 Test scheduled 06/30/2023, last dose of Trulicty was 06/19/2023. Insurance verification - Kareen @ [phone] called and given approval #. Called pt. [...] 2 diabetes mellitus without complication, unspecified whether retirement insulin use (HCC) I have recommended proceeding [...] rreview was performed by myself. Initial New [facility] surgical patient Navigation & Financial Counseling Discussion [...] [] YES [] NO PRIMARY INSURANCE: Payor: [facility] MEDICARE / Plan: [facility] MEDICARE ADVANTAGE [id number] / Product Type: Medicare HMO / BENEFIT [...] 1) Scheduled at new pt surgeon visit: Wedding Transportation Driver (RD) for a Nutrition Assessment (BNA) and [...] and after surgery. documented in this encounter [facility] 08-10-2023 History of Present illness Narrative ENDOSCOPY ORDERS To be scheduled with: Dr. Faulkner Patient is: Pre-op/Pre-Bariatric Surgery CPT code: EGD with biopsy- CPT 01852 Diagnosis: GERD- K21.9 If pre-op, Diet & [...] for call back. documented in this encounter [facility] [facility] History of Present illness Narrative ENDOSCOPY ORDERS To be scheduled with: Dr. Faulkner Patient is: Pre-op/Pre-Bariatric Surgery CPT code: EGD with biopsy- CPT 71272 Diagnosis: GERD- K21.9 If pre-op, Diet & [...] 12:00 BCH printed documented in this encounter [facility] 08-08-2023 Note Addended by: BERNADINE JACKSON on: 08/08/2023 02:15 PM Modules accepted: Orders [facility] 08-08-2023 Note Addended by: MEGAAN BINGHAM on: 08/08/2023 02:10 PM Modules accepted: [facility] 08-08-2023 Telephone encounter Note Call to patient to schedule with MB, had to lv asking for a call back to reschedule [facility] 08-08-2023 Miscellaneous Notes Call to patient to schedule with MB, had to lvm asking for a call back to reschedule [...] she has been rescheduled for 07/[address] [place] [address] Bang. Please call patient to schedule d/e with Dr. Bang. Patient no showed April visit which was her 2nd. Spoke to patient on the phone and let her know that someone would reach out for scheduling. Authorization for Testing Initiated. Company Name & Number Contacted for Auth: [employer] Name of [employer] Mat[employer] Machine Operator: Laxmi Hernandez Name of Procedure: GES Cpt Code: 10494 Diagnosis Code: E11.9, K30 Location of Procedure: Is Auth Required: Call Reference #: [id number] Pending Case #: Clinical Reviewer: Additional Info if given: Approved Case reference: [id number] Date Range for Approved Auth: 06/28/2023 - 08/12/2023 Test scheduled 06/30/2023, last dose of Trulicty was 06/19/2023. Insurance verification - Kareen @ [phone] called and given approval #. Called pt. [...] 2 diabetes mellitus without complication, unspecified whether retirement insulin use (HCC) I have recommended proceeding [...] rreview was performed by myself. Initial [facility] surgical patient Navigation & Financial Counseling Discussion [...] INSURANCE: Payor: [employer] MEDICARE / Plan: [facility] MEDICARE ADVANTAGE [id number] / Product Type: Medicare HMO / BENEFIT [...] 1) Scheduled at new pt surgeon visit: Wedding Transportation Driver (RD) for a Nutrition Assessment (BNA) and [...] and after surgery. documented in this encounter [facility] 08-08-2023 Note Addended by: BERNADINE JACKSON on: 08/08/2023 02:15 PM Modules accepted: Orders [facility] 08-08-2023 Note Addended by: BERNADINE JACKSON on: 08/08/2023 02:15 PM Modules accepted: Orders [facility] 08-08-2023 Note Addended by: BERNADINE JACKSON on: 08/08/2023 02:15 PM Modules accepted: Orders [facility] 08-08-2023 Note Addended by: BERNADINE JACKSON on: 08/08/2023 02:15 PM Modules accepted: Orders [facility] 08-08-2023 Telephone encounter Note Nicotine order signed. [facility] 08-08-2023 Note Addended by: MEAGAN BINGHAM on: 08/08/2023 02:10 PM Modules accepted: Orders [facility] 08-08-2023 Note Addended by: MEAGAN BINGHAM on: 08/08/2023 02:10 PM Modules accepted: Orders [facility] 08-08-2023 Note Addended by: MEAGAN BINGHAM on: 08/08/2023 02:10 PM Modules accepted: Orders [facility] 08-08-2023 Note Addended by: MEAGAN BINGHAM on: 08/08/2023 02:10 PM Modules accepted: Orders [facility] 08-08-2023 Telephone encounter Note Just spoke to patient. Can you call her to schedule follow up visit with MB? Thank you! [facility] 08-08-2023 Note BARIATRIC CARE [facility] SURGICAL WEIGHT LOSS MANAGEMENT PROGRAM PROGRESS NOTE FOLLOW UP Patient: Shawnee Mohr Date of : 1955 Service Date: 08/08/2023 DE Visit number: 3 of 3 Pre Program Weight Metrics Date of Initial Consultation:@FLOWLAST(8961)@ Initial Weight: @FLOWLAST([id number])@ Initial BMI: @FLOWLAST([id number])@ Junction Body Weight: @FLOWLAST([id number])@ Excess Body Weight: @FLOWLAST([id number])@ Follow Up Weight Metrics Last Three Weights [...] home O2 Completed by: Gabrielle Foster MA [facility] 08-08-2023 History of Present illness Narrative BARIATRIC CARE [facility] SURGICAL WEIGHT LOSS MANAGEMENT PROGRAM PROGRESS NOTE FOLLOW UP Patient: Shawnee Mohr Date of : 1955 Service Date: 08/08/2023 DE Visit number: 3 of 3 Pre Program Weight Metrics Date of Initial Consultation:@FLOWLAST(8961)@ Initial Weight: @FLOWLAST([id number])@ Initial BMI: @FLOWLAST([id number])@ Junction Body Weight: @FLOWLAST([id number])@ Excess Body Weight: @FLOWLAST([id number])@ Follow Up Weight Metrics Last Three Weights [...] Mohr will discuss protein goals with her clinical investigator Dr. Alexis. --Sleep apnea: CPAP compliant --GERD: [...] continue monthly visits until authorization/surgery date obtained. (Agnes) No orders of the defined types were placed in this encounter. Current Meds Patient's Medications New Prescriptions No medications on file Previous Medications AMITRIPTYLINE (ELAVIL) 150 MG TABLET Take 150 mg by mouth Nightly. BUSPIRONE (BUSPAR) 10 MG TABLET Take 10 mg by mouth 3 times daily. CHOLECALCIFEROL (VITAMIN D-3) 1.25 MG (12257 UT) CAPSULE Take 50,000 Units by mouth [...] listed in Epic. documented in this encounter [facility] 07-25-2023 Note BARIATRIC CARE [facility] SURGICAL WEIGHT LOSS MANAGEMENT PROGRAM PROGRESS NOTE FOLLOW UP Patient: Shawnee Mohr Date of : 1955 Service Date: 07/25/2023 DE Visit number: 2 of 3 Pre Program Weight Metrics Date of Initial Consultation:@FLOWLAST(8961)@ Initial Weight: @FLOWLAST([id number])@ Initial BMI: @FLOWLAST([id number])@ Junction Body Weight: @FLOWLAST([id number])@ Excess Body Weight: @FLOWLAST([id number])@ Follow Up Weight Metrics Last Three Weights [...] home O2 Completed by: Gabrielle Foster MA [facility] 07-25-2023 History of Present illness Narrative [facility] WE[facility] MANAGEMENT PROGRAM PROGRESS NOTE FOLLOW UP Patient: Shawnee Mohr Date of : 1955 Service Date: 07/25/2023 DE Visit number: 2 of 3 Pre Program Weight Metrics Date of Initial Consultation:@FLOWLAST(8961)@ Initial Weight: @FLOWLAST([id number])@ Initial BMI: @FLOWLAST(950386638)@ Junction Body Weight: @FLOWLAST([id number])@ Excess Body Weight: @FLOWLAST([id number])@ Follow Up Weight Metrics Last Three Weights [...] Mohr will discuss protein goals with her clinical investigator Dr. Alexis. --Sleep apnea: CPAP compliant --GERD: [...] continue monthly visits until authorization/surgery date obtained. (Agnes) No orders of the defined types were placed in this encounter. Current Meds Patient's Medications New Prescriptions No medications on file Previous Medications AMITRIPTYLINE (ELAVIL) 150 MG TABLET Take 150 mg by mouth Nightly. BUSPIRONE (BUSPAR) 10 MG TABLET Take 10 mg by mouth 3 times daily. CHOLECALCIFEROL (VITAMIN D-3) 1.25 MG (78501 UT) CAPSULE Take 50,000 Units by mouth [...] listed in Epic. documented in this encounter [facility] 07-12-2023 Telephone encounter Note Got her, spoke with patient, she was confirming future appts. [facility] 07-11-2023 Telephone encounter Note Patient left me a VM, I think she is ret your call Tonja. [facility] 07-11-2023 Miscellaneous Notes Patient left me a VM, I think she is ret your call Tonja. 2nd voicemail asking for a call back for scheduling. Lvm asking patient to call us back to schedule with MB Please call patient to schedule bna fu with MB, thanks! Spoke with patient, she has been rescheduled for 07/[address] [place] [address] Bang. Please call patient to schedule d/e with Dr. Bang. Patient no showed April visit which was her 2nd. Spoke to patient on the phone and let her know that someone would reach out for scheduling. Authorization for Testing Initiated. Company Name & Number Contacted for Auth: [place] Name of [employer] Matting Machine Operator: Laxmi Hernandez Name of Procedure: GES Cpt Code: 73279 Diagnosis Code: E11.9, K30 Location of Procedure: Is Auth Required: Call Reference #: [id number] Pending Case #: Clinical Reviewer: Additional Info if given: Approved Case reference: [id number] Date Range for Approved Auth: 06/28/2023 - 08/12/2023 Test scheduled 06/30/2023, last dose of Trulicty was 06/19/2023. Insurance verification - Kareen @ [phone] called and given approval #. Called pt. [...] 2 diabetes mellitus without complication, unspecified whether intermediate accountant insulin use (HCC) I have recommended proceeding [...] rreview was performed by myself. Initial [facility] surgical patient Navigation & Financial Counseling Discussion [...] [] YES [] NO PRIMARY INSURANCE: Payor: [facility] MEDICARE / Plan: [facility] MEDICARE ADVANTAGE [id number] / Product Type: Medicare HMO / BENEFIT [...] 1) Scheduled at new pt surgeon visit: Wedding Transportation Driver (RD) for a Nutrition Assessment (BNA) and [...] and after surgery. documented in this encounter [facility] 07-08-2023 Telephone encounter Note 2nd voicemail asking for a call back for scheduling. [facility] 07-08-2023 Miscellaneous Notes 2nd voicemail asking for a call back for scheduling. Lvm asking patient to call us back to schedule with KASEY Please call patient to schedule bna fu with MB, thanks! Spoke with patient, she has been rescheduled for 07/[address] [place] [address] Bang. Please call patient to schedule d/e with Dr. Bang. Patient no showed April visit which was her 2nd. Spoke to patient on the phone and let her know that someone would reach out for scheduling. Authorization for Testing Initiated. Company Name & Number Contacted for Auth: [place] Name of [employer] Matting Machine Operator: Laxmi Hernandez Name of Procedure: GES Cpt Code: 14721 Diagnosis Code: E11.9, K30 Location of Procedure: Is Auth Required: Call Reference #: [id number] Pending Case #: Clinical Reviewer: Additional Info if given: Approved Case reference: [id number] Date Range for Approved Auth: 06/28/2023 - 08/12/2023 Test scheduled 06/30/2023, last dose of Trulicty was 06/19/2023. Insurance verification - Kareen @ [phone] called and given approval #. Called pt. [...] 2 diabetes mellitus without complication, unspecified whether intermediate accountant insulin use (HCC) I have recommended proceeding [...] rreview was performed by myself. Initial [facility] surgical patient Navigation & Financial Counseling Discussion [...] [] YES [] NO PRIMARY INSURANCE: Payor: [facility] MEDICARE / Plan: [facility] MEDICARE ADVANTAGE [id number] / Product Type: Medicare HMO / BENEFIT [...] 1) Scheduled at new pt surgeon visit: Wedding Transportation Driver (RD) for a Nutrition Assessment (BNA) and [...] and after surgery. documented in this encounter [facility] 07-06-2023 Telephone encounter Note Lvm asking patient to call us back to schedule with KASEY [facility] 07-06-2023 Miscellaneous Notes Lvm asking patient to call us back to schedule with KASEY Please call patient to schedule bna fu with MB, thanks! Spoke with patient, she has been rescheduled for 07/[address] [place] [address] Bang. Please call patient to schedule d/e with Dr. Bang. Patient no showed April visit which was her 2nd. Spoke to patient on the phone and let her know that someone would reach out for scheduling. Authorization for Testing Initiated. Company Name & Number Contacted for Auth: [place] Name of [employer] Matting Machine Operator: Fransicoangela Mary Name of Procedure: GES Cpt Code: 98506 Diagnosis Code: E11.9, K30 Location of Procedure: Is Auth Required: Call Reference #: [id number] Pending Case #: Clinical Reviewer: Additional Info if given: Approved Case reference: [id number] Date Range for Approved Auth: 06/28/2023 - 08/12/2023 Test scheduled 06/30/2023, last dose of Trulicty was 06/19/2023. Insurance verification - Kareen @ [phone] called and given approval #. Called pt. [...] 2 diabetes mellitus without complication, unspecified whether retirement insulin use (HCC) I have recommended proceeding with the evaluation and work-up for the primary procedure as outlined below: Requested records from GI Specialist Dr. Latesha Faulkner PATIENT SUMMARY Shawnee Mohr 68 y.o. female with Body mass index is 43.36 kg/m . Laparoscopic Mat-en-Y Gastric Bypass and Laparoscopic Liver Biopsy DM[x] HTN[x] BENTLEY[x] GERD[x] HL[x] OA[] Date of Surgery: TBCookie ALEXIS EPPERSON INITIAL TESTING RESULTS Labwork [x] [...] rreview was performed by myself. Initial New [facility] surgical patient Navigation & Financial Counseling Discussion [...] INSURANCE: Payor: [employer] MEDICARE / Plan: [facility] MEDICARE ADVANTAGE [id number] / Product Type: Medicare HMO / BENEFIT [...] 1) Scheduled at new pt surgeon visit: Wedding Transportation Driver (RD) for a Nutrition Assessment (BNA) and [...] and after surgery. documented in this encounter [facility] 07-05-2023 Telephone encounter Note Please call patient to schedule bna fu with KASEY, thanks! [facility] 07-05-2023 Miscellaneous Notes Please call patient to schedule bna fu with KASEY, thanks! Spoke with patient, she has been rescheduled for 07/[address] [place] [address] Bang. Please call patient to schedule d/e with Dr. Bang. Patient no showed April visit which was her 2nd. Spoke to patient on the phone and let her know that someone would reach out for scheduling. Authorization for Testing Initiated. Company Name & Number Contacted for Auth: [place] Name of [employer] Matting Machine Operator: Laxmi Hernandez Name of Procedure: GES Cpt Code: 22074 Diagnosis Code: E11.9, K30 Location of Procedure: Is Auth Required: Call Reference #: [id number] Pending Case #: Clinical Reviewer: Additional Info if given: Approved Case reference: [id number] Date Range for Approved Auth: 06/28/2023 - 08/12/2023 Test scheduled 06/30/2023, last dose of Trulicty was 06/19/2023. Insurance verification - Kareen @ [phone] called and given approval #. Called pt. [...] 2 diabetes mellitus without complication, unspecified whether retirement insulin use (HCC) I have recommended proceeding [...] rreview was performed by myself. Initial [facility] surgical patient Navigation & Financial Counseling Discussion [...] [] YES [] NO PRIMARY INSURANCE: Payor: [facility] MEDICARE / Plan: [facility] MEDICARE ADVANTAGE [id number] / Product Type: Medicare HMO / BENEFIT [...] 1) Scheduled at new pt surgeon visit: Wedding Transportation Driver (RD) for a Nutrition Assessment (BNA) and [...] and after surgery. documented in this encounter [facility] 07-01-2023 Telephone encounter Note Spoke with patient, she has been rescheduled for 07/[address] [place] [address] Bang. [facility] 07-01-2023 Miscellaneous Notes Spoke with patient, she has been rescheduled for 07/[address] [place] [address] Bang. Please call patient to schedule d/e with Dr. Bang. Patient no showed April visit which was her 2nd. Spoke to patient on the phone and let her know that someone would reach out for scheduling. Authorization for Testing Initiated. Company Name & Number Contacted for Auth: [place] Name of [employer] Matting Machine Operator: Laxmi Hernandez Name of Procedure: GES Cpt Code: 22576 Diagnosis Code: E11.9, K30 Location of Procedure: Is Auth Required: Call Reference #: [id number] Pending Case #: Clinical Reviewer: Additional Info if given: Approved Case reference: [id number] Date Range for Approved Auth: 06/28/2023 - 08/12/2023 Test scheduled 06/30/2023, last dose of Trulicty was 06/19/2023. Insurance verification - Kareen @ [phone] called and given approval #. Called pt. [...] 2 diabetes mellitus without complication, unspecified whether retirement insulin use (HCC) I have recommended proceeding [...] chart rreview was performed by myself. Initial [facility] surgical patient Navigation & Financial Counseling Discussion [...] [] YES [] NO PRIMARY INSURANCE: Payor: [facility] MEDICARE / Plan: [facility] MEDICARE ADVANTAGE [id number] / Product Type: Medicare HMO / BENEFIT [...] 1) Scheduled at new pt surgeon visit: Wedding Transportation Driver (RD) for a Nutrition Assessment (BNA) and [...] and after surgery. documented in this encounter [facility] 07-01-2023 Telephone encounter Note Please call patient to schedule d/e with Dr. Bang. Patient no showed April visit which was her 2nd. Spoke to patient on the phone and let her know that someone would reach out for scheduling. [facility] 06-30-2023 Telephone encounter Note Pt. Calling to confirm appt. for 06.30.23 at 8:00am [facility] 06-30-2023 Miscellaneous Notes Pt. Calling to confirm appt. for 06.30.23 at 8:00am documented in this encounter [facility] 06-28-2023 Telephone encounter Note Authorization for Testing Initiated. Company Name & Number Contacted for Auth: [place] Name of [employer] Matting Machine Operator: Laxmi Hernandez Name of Procedure: GES Cpt Code: 53986 Diagnosis Code: E11.9, K30 Location of Procedure: Is Auth Required: Call Reference #: [id number] Pending Case #: Clinical Reviewer: Additional Info if given: Approved Case reference: [id number] Date Range for Approved Auth: 06/28/2023 - 08/12/2023 Test scheduled 06/30/2023, last dose of Trulicty was 06/19/2023. Insurance verification - Kareen @ [phone] called and given approval #. [facility] 06-28-2023 Miscellaneous Notes Authorization for Testing Initiated. Company Name & Number Contacted for Auth: [place] Name of [employer] Matting Machine Operator: Laxmi Hernandez Name of Procedure: GES Cpt Code: 43888 Diagnosis Code: E11.9, K30 Location of Procedure: Is Auth Required: Call Reference #: [id number] Pending Case #: Clinical Reviewer: Additional Info if given: Approved Case reference: [id number] Date Range for Approved Auth: 06/28/2023 - 08/12/2023 Test scheduled 06/30/2023, last dose of Trulicty was 06/19/2023. Insurance verification - Kareen @ [phone] called and given approval #. Called pt. [...] 2 diabetes mellitus without complication, unspecified whether retirement insulin use (HCC) I have recommended proceeding [...] rreview was performed by myself. Initial [facility] surgical patient Navigation & Financial Counseling Discussion [...] INSURANCE: Payor: [employer] MEDICARE / Plan: [facility] MEDICARE ADVANTAGE [id number] / Product Type: Medicare HMO / BENEFIT [...] 1) Scheduled at new pt surgeon visit: Wedding Transportation Driver (RD) for a Nutrition Assessment (BNA) and [...] and after surgery. documented in this encounter [facility] 06-27-2023 Telephone encounter Note Called pt. Reviewed EGD findings. Discussed order for GES. To hold GLP1 dose for 7 days prior to test. Pt verbalized understanding. Given phone number for Central Scheduling. [facility] 06-27-2023 Miscellaneous Notes Called pt. Reviewed EGD [...] 2 diabetes mellitus without complication, unspecified whether retirement insulin use (HCC) I have recommended proceeding [...] rreview was performed by myself. Initial [facility] surgical patient Navigation & Financial Counseling Discussion [...] INSURANCE: Payor: [employer] MEDICARE / Plan: [facility] MEDICARE ADVANTAGE [id number] / Product Type: Medicare HMO / BENEFIT [...] 1) Scheduled at new pt surgeon visit: Wedding Transportation Driver (RD) for a Nutrition Assessment (BNA) and [...] and after surgery. documented in this encounter [facility] 06-23-2023 Note Discharged to home . Accompanied by Linda marquez . AVS and education reviewed with patient and Linda, both verbalized understanding. Mode of transportation private vehicle Belongings sent. [facility] 06-23-2023 Note Addended by: BERNADINE JACKSON on: 06/23/2023 10:09 AM Modules accepted: Orders [facility] 06-23-2023 Note Patient: Shawnee das Procedure Summary Date: 06/23/23 Room / Location: [facility] 3 / [facility] OR Anesthesia Start: 946 Anesthesia Stop: 957 Procedure: EGD WITH BIOPSY Diagnosis: Dyspepsia (Dyspepsia [R10.13]) Surgeons: Ole Faulkner MD Responsible Provider: No Anesthesiologist - Salena/MD [place] Anesthesia Type: general, [...] once all PACU criteria has been met. [facility] 06-23-2023 Note Patient: Shawnee das Procedure Summary Date: 06/23/23 Room / Location: [facility] [place] [facility] [place] Anesthesia Start: 946 Anesthesia Stop: [...] opportunity for questions and acknowledgement of understanding. [facility] 06-23-2023 Note Formatting of this n ote might be different from the original. Discharged to home . Accompanied by Linda marquez . AVS and education reviewed with patient and Linda, both verbalized understanding. Mode of transportation private vehicle Belongings sent. [facility] 06-23-2023 Miscellaneous Notes Discharged to home . Accompanied by Linda marquez . AVS and education reviewed with patient and Linda, both verbalized understanding. Mode of transportation private vehicle Belongings sent. POC blood glucose 114 in pacu Images from the original note were not included. . Shawnee Onur 1955 ESOPHAGOGASTRODUODENOSCOPY (EGD) NOTE Date of Procedure: [...] blood sugar 116 documented in this encounter [facility] 06-23-2023 Note Formatting of this n ote might be different from the original. POC blood glucose 114 in pacu [facility] 06-23-2023 Note Addended by: BERNADINE JACKSON on: 06/23/2023 10:09 AM Modules accepted: Orders [facility] 06-23-2023 Note Addended by: BERNADINE JACKSON on: 06/23/2023 10:09 AM Modules accepted: Orders [facility] 06-23-2023 Note Addended by: BERNADINE JACKSON on: 06/23/2023 10:09 AM Modules accepted: Orders [facility] 06-23-2023 Note Addended by: BERNADINE JACKSON on: 06/23/2023 10:09 AM Modules accepted: Orders [facility] 06-23-2023 Note Addended by: BERNADINE JACKSON on: 06/23/2023 10:09 AM Modules accepted: Orders [facility] 06-23-2023 Note Addended by: BERNADINE JACKSON on: 06/23/2023 10:09 AM Modules accepted: Orders T [facility] 06-23-2023 Note Addended by: BERNADINE JACKSON on: 06/23/2023 10:09 AM Modules accepted: Orders T [facility] 06-23-2023 Note Addended by: BERNADINE JACKSON on: 06/23/2023 10:09 AM Modules accepted: Orders T [facility] 06-23-2023 Note Addended by: BERNADINE JACKSON on: 06/23/2023 10:09 AM Modules accepted: Orders T [facility] 06-23-2023 Note Addended by: BERNADINE JACKSON on: 06/23/2023 10:09 AM Modules accepted: Orders [facility] 06-23-2023 Note Addended by: BERNADINE JACKSON on: 06/23/2023 10:09 AM Modules accepted: Orders [facility] 06-23-2023 Note Addended by: BERNADINE JACKSON on: 06/23/2023 10:09 AM Modules accepted: Orders T [facility] 06-23-2023 Hospital Discharge instructions Clari Mei [...] OR CALL 911 documented in this encounter [facility] 06-23-2023 Telephone encounter Note Endoscopic Findings: [...] time under anesthesia. GES ordered per TB. [facility] 06-23-2023 Note Endoscopy History an d [...] Past Surgical History: Procedure Laterality Date CHOLECYSTECTOMY [facility] [place]ERE[place] [place] TOTAL KNEE ARTHROPLASTY Right [place] [facility] [...] understanding and willingness to proceed with plan. [facility] 06-23-2023 Note Formatting of this n [...] work-up as noted in office visit note. [facility] 06-23-2023 History and physical note Images from the original note were not included. Endoscopy History and Physical HPI: Shanwee Mohr is a 68 y.o. female who [...] Past Surgical History: Procedure Laterality Date CHOLECYSTECTOMY [facility] HYSTERECTOMY 2018 [place] TOTAL KNEE ARTHROPLASTY Right [place] W [facility] [...] understanding and willingness to proceed with plan. [employer] Work Phone: 06-23-2023 History and physical note [...] Past Surgical History: Procedure Laterality Date CHOLECYSTECTOMY [facility] HYSTERECTOMY 2018 [place] TOTAL KNEE ARTHROPLASTY Right [place] [facility] [...] proceed with plan. documented in this encounter [facility] 06-23-2023 Note Formatting of this n ote might be different from the original. 0942 blood sugar 116 [facility] 06-22-2023 Note Patient: Shawnee das Procedure Information Date/Time: 06/23/23 1100 Procedure: EGD WITH BIOPSY Location: [facility] / [facility] OR Surgeons: [...] found for this or any previous visit. [facility] 05-12-2023 History of Present illness Narrative [facility] SURGICAL WEIGHT LOSS MANAGEMENT PROGRAM PHYSICIAN [...] Past Surgical History: Procedure Laterality Date CHOLECYSTECTOMY [place] [facility] [place] 2018 [place] TOTAL KNEE ARTHROPLASTY Right [place] W [facility] [...] times daily. CHOLECALCIFEROL (VITAMIN D-3) 1.25 MG (96949 UT) CAPSULE Take 50,000 Units by mouth [...] & Exercise Visit: Initial Weight: Initial BMI: Junction Body Weight: Excess Body Weight: Physical Examination: [...] DIET HISTORY FORM with patient (located in [facility]) I reviewed all of the patient's medications [...] Mohr will discuss protein goals with her clinical investigator Dr. Alexis. --Sleep apnea: CPAP compliant --GERD: [...] 05/12/2023 2:07 PM documented in this encounter [facility] 05-12-2023 History of Present illness Narrative [facility] SURGICAL WEIGHT LOSS MANAGEMENT PROGRAM PHYSICIAN [...] Past Surgical History: Procedure Laterality Date CHOLECYSTECTOMY [facility] [facility] HYSTERECTOMY 2018 [place] TOTAL KNEE ARTHROPLASTY Right [place] W [facility] [...] times daily. CHOLECALCIFEROL (VITAMIN D-3) 1.25 MG (82932 UT) CAPSULE Take 50,000 Units by mouth [...] & Exercise Visit: Initial Weight: Initial BMI: Junction Body Weight: Excess Body Weight: Physical Examination: [...] DIET HISTORY FORM with patient (located in [employer] [facility]) I reviewed all of the patient's medications [...] Mohr will discuss protein goals with her clinical investigator Dr. Alexis. --Sleep apnea: CPAP compliant --GERD: [...] 05/12/2023 2:07 PM documented in this encounter [facility] 03-02-2023 Telephone encounter Note Orders mailed [facility] 03-02-2023 Miscellaneous Notes Orders mailed Addended [...] 2 diabetes mellitus without complication, unspecified whether intermediate accountant insulin use (HCC) I have recommended proceeding [...] rreview was performed by myself. Initial New [facility] surgical patient Navigation & Financial Counseling Discussion [...] [] YES [] NO PRIMARY INSURANCE: Payor: [facility] MEDICARE / Plan: [facility] MEDICARE ADVANTAGE [id number] / Product Type: Medicare HMO / BENEFIT [...] 1) Scheduled at new pt surgeon visit: Wedding Transportation Driver (RD) for a Nutrition Assessment (BNA) and [...] and after surgery. documented in this encounter [facility] 02-28-2023 Note Addended by: BERNADINE JACKSON on: 02/28/2023 08:37 AM Modules accepted: Orders [facility] 02-28-2023 Note Addended by: BERNADINE JACKSON on: 02/28/2023 08:37 AM Modules accepted: Orders [facility] 02-28-2023 Note Addended by: BERNADINE JACKSON on: 02/28/2023 08:37 AM Modules accepted: Orders [facility] 02-28-2023 Note Addended by: BERNADNIE JACKSON on: 02/28/2023 08:37 AM Modules accepted: Orders [facility] 02-28-2023 Note Addended by: BERNADINE JACKSON on: 02/28/2023 08:37 AM Modules accepted: Orders [facility] 02-28-2023 Note Addended by: BERNADINE JACKSON on: 02/28/2023 08:37 AM Modules accepted: Orders [facility] 02-28-2023 Note Addended by: BERNADINE JACKSON on: 02/28/2023 08:37 AM Modules accepted: Orders [facility] 02-28-2023 Note Addended by: BERNADINE JACKSON on: 02/28/2023 08:37 AM Modules accepted: Orders [facility] 02-28-2023 Note Addended by: BERNADINE JACKSON on: 02/28/2023 08:37 AM Modules accepted: Orders T [facility] 02-28-2023 Note Addended by: BERNADINE JACKSON on: 02/28/2023 08:37 AM Modules accepted: Orders [facility] 02-28-2023 Note Addended by: BERNADINE JACKSON on: 02/28/2023 08:37 AM Modules accepted: Orders T [facility] 02-28-2023 Note Addended by: BERNADINE JACKSON on: 02/28/2023 08:37 AM Modules accepted: Orders [facility] 02-28-2023 Note Addended by: BERNADINE JACKSON on: 02/28/2023 08:37 AM Modules accepted: Orders [facility] 02-28-2023 Note Addended by: BERNADINE JACKSON on: 02/28/2023 08:37 AM Modules accepted: Orders [facility] 02-28-2023 Miscellaneous Notes Addended by: BERNADINE [...] 2 diabetes mellitus without complication, unspecified whether intermediate accountant insulin use (HCC) I have recommended proceeding [...] rreview was performed by myself. Initial New [facility] surgical patient Navigation & Financial Counseling Discussion [...] INSURANCE: Payor: [employer] MEDICARE / Plan: [facility] MEDICARE ADVANTAGE [id number] / Product Type: Medicare HMO / BENEFIT [...] 1) Scheduled at new pt surgeon visit: Wedding Transportation Driver (RD) for a Nutrition Assessment (BNA) and [...] and after surgery. documented in this encounter [facility] 02-28-2023 Telephone encounter Note Orders signed. Pt did have EGD 09/16. Will discuss need to repeat with TB. [facility] 02-26-2023 Note Addended by: ALLEGRA PALOMARES on: 02/26/2023 12:56 PM Modules accepted: Orders [facility] 02-26-2023 Note Addended by: ALLEGRA PALOMARES on: 02/26/2023 12:56 PM Modules accepted: Orders [facility] 02-26-2023 Note Addended by: ALLEGRA PALOMARES on: 02/26/2023 12:56 PM Modules accepted: Orders [facility] 02-26-2023 Note Addended by: ALLEGRA PALOMARES on: 02/26/2023 12:56 PM Modules accepted: Orders [facility] 02-26-2023 Note Addended by: ALLEGRA PALOMARES on: 02/26/2023 12:56 PM Modules accepted: Orders [facility] 02-26-2023 Note Addended by: ALLEGRA PALOMARES on: 02/26/2023 12:56 PM Modules accepted: Orders [facility] 02-26-2023 Note Addended by: ALLEGRA PALOMARES on: 02/26/2023 12:56 PM Modules accepted: Orders [facility] 02-26-2023 Note Addended by: ALLEGRA PALOMARES on: 02/26/2023 12:56 PM Modules accepted: Orders [facility] 02-26-2023 Note Addended by: ALLEGRA PALOMARES on: 02/26/2023 12:56 PM Modules accepted: Orders [facility] 02-26-2023 Note Addended by: ALLEGRA PALOMARES on: 02/26/2023 12:56 PM Modules accepted: Orders [facility] 02-26-2023 Note Addended by: ALLEGRA PALOMARES on: 02/26/2023 12:56 PM Modules accepted: Orders [facility] 02-26-2023 Note Addended by: ALLEGRA PALOMARES on: 02/26/2023 12:56 PM Modules accepted: Orders [facility] 02-26-2023 Note Addended by: ALLEGRA PALOMARES on: 02/26/2023 12:56 PM Modules accepted: Orders [facility] 02-26-2023 Note Addended by: ALLEGRA PALOMARES on: 02/26/2023 12:56 PM Modules accepted: Orders [facility] 02-26-2023 Note Addended by: ALLEGRA PALOMARES on: 02/26/2023 12:56 PM Modules accepted: Orders [facility] 02-26-2023 Miscellaneous Notes Addended by: ALLEGRA PALOMARES on: 02/26/2023 12:56 PM Modules accepted: Orders Orders pended, Pre-op checklist scanned, EGD order sent to [facility] Encounter Diagnoses Name Primary? BENTLEY (obstructive sleep apnea) Yes Primary hypertension Gastroesophageal reflux disease without esophagitis Type 2 diabetes mellitus without complication, unspecified whether retirement insulin use (HCC) I have recommended proceeding [...] rreview was performed by myself. Initial New [facility] surgical patient Navigation & Financial Counseling Discussion [...] [] YES [] NO PRIMARY INSURANCE: Payor: [facility] MEDICARE / Plan: [facility] MEDICARE ADVANTAGE [id number] / Product Type: Medicare HMO / BENEFIT [...] 1) Scheduled at new pt surgeon visit: Wedding Transportation Driver (RD) for a Nutrition Assessment (BNA) and [...] and after surgery. documented in this encounter [facility] 02-26-2023 History of Present illness Narrative ENDOSCOPY ORDERS To be scheduled with: Dr. Faulkner Patient is: Pre-op/Pre-Bariatric Surgery CPT code: EGD with biopsy- CPT 48521 Diagnosis: Dyspepsia- K30 If pre-op, Diet & Exercise Requirements are, and started/scheduled on 04/08/2023: 3 months Home O2: No Known Difficult Intubation: No Pt scheduled [facility] 06/23/23 at 12:30 printed documented in this encounter [facility] 02-26-2023 Telephone encounter Note Orders pended, Pre-op checklist scanned, EGD order sent to [facility] 02-26-2023 Telephone encounter Note PLAN Encounter Diagnoses Name Primary? BENTLEY (obstructive sleep apnea) Yes Primary hypertension Gastroesophageal reflux disease without esophagitis Type 2 diabetes mellitus without complication, unspecified whether intermediate accountant insulin use (HCC) I have recommended proceeding [...] full chart rreview was performed by myself. [facility] 02-18-2023 History of Present illness Narrative [facility] BARIATRIC NUTRITION ASSESSMENT / DIET & EXERCISE [...] Estephania Winter RD documented in this encounter [facility] 02-18-2023 History of Present illness Narrative [facility] BARIATRIC NUTRITION ASSESSMENT / DIET & EXERCISE [...] Estephania Winter RD documented in this encounter [facility] 02-08-2023 Note Initial New BCC surg [...] [] YES [] NO PRIMARY INSURANCE: Payor: [facility] MEDICARE / Plan: [facility] MEDICARE ADVANTAGE [id number] / Product Type: Medicare HMO / BENEFIT [...] 1) Scheduled at new pt surgeon visit: Wedding Transportation Driver (RD) for a Nutrition Assessment (BNA) and [...] and lab/testing results before and after surgery. [facility] 02-08-2023 Telephone encounter Note Initial New [facility] surgical patient Navigation & Financial Counseling Discussion [...] INSURANCE: Payor: [employer] MEDICARE / Plan: [facility] MEDICARE ADVANTAGE [id number] / Product Type: Medicare HMO / BENEFIT [...] 1) Scheduled at new pt surgeon visit: Wedding Transportation Driver (RD) for a Nutrition Assessment (BNA) and [...] and lab/testing results before and after surgery. [facility] 02-08-2023 Note BARIATRIC AND METABO LIC SURGERY [facility] INITIAL EVALUATION - HISTORY AND PHYSICAL 02/08/23 PATIENT: Shawnee Mohr DATE OF : 1955 ----- HISTORY OF PRESENT ILLNESS Chief Complaint: Morbid Obesity and associated comorbid conditions. Shawnee Mohr is a 68 y.o. female with morbid obesity and associated comorbid conditions who presents to the [facility] for evaluation for bariatric surgery. The patient stands Height: 5' 0.75 (154.3 cm) ([facility]) tall with a weight of [...] Past Surgical History: Procedure Laterality Date CHOLECYSTECTOMY [place] W [facility] HYSTERECTOMY 2018 [place] TOTAL KNEE ARTHROPLASTY Right [place] W [facility] [...] times daily. CHOLECALCIFEROL (VITAMIN D-3) 1.25 MG (89143 UT) CAPSULE Take 50,000 Units by mouth [...] BP (!) 1 (more content not included)... [facility] 04-21-2021 Note HNO ID: [id number] Author: Lebron Downing Service: ? Author Type: [...] - Type 2 diabetes, uncontrolled, with neuropathy ([facility]) Dr. Reyna - Vitamin D deficiency Current [...] ALLERGIES Allergen Reactions - Gabapentin Intolerance - B[place]-Qna-Ptu Red* Intolerance PAST SURGICAL HISTORY Procedure Laterality Date - PAST SURGICAL HISTORY OF 2006 bilateral knee replacements - REMOVAL GALLBLADDER 1994 laparoscopic cholecystectomy FAMILY HISTORY Problem Relation Age of On (more content not included)... [facility] 04-21-2021 Note HNO ID: [id number] Author: Silvia Bragg Service: ? Author Type: ? Type: Progress Notes Filed: 04/21/2021 1:51 PM Note Text: New patient. Visit for bilateral foot pain, bilateral bunion, and diabetic foot care/exam. Patient had xray prior to visit. Silvia Bragg [facility] 04-21-2021 Note HNO ID: [id number] Author: RT Turner(R) Service: Radiology Author Type: Physical Therapist Assistant Type: Progress Notes Filed: 04/21/2021 12:39 PM [...] RT Turner(R) April 21, 2021 12:38 PM [facility] documented in this encounter [facility]* Diagnosis Gastroesophageal reflux disease without esophagitis- Primary Esophageal reflux documented in this encounter [facility]* Diagnosis BENTLEY (obstructive sleep apnea) Obstructive sleep apnea (adult) (pediatric) Primary hypertension Unspecified essential hypertension Gastroesophageal reflux disease without esophagitis Esophageal reflux Type 2 diabetes mellitus without complication, unspecified whether retirement insulin use (HCC) Morbid obesity, unspecified obesity type (HCC) documented [facility] this encounter [facility]* Diagnosis Ghosh's esophagus with dysplasia- Primary BENTLEY (obstructive sleep apnea) Obstructive sleep apnea (adult) (pediatric) Primary hypertension Unspecified essential hypertension Gastroesophageal reflux disease without esophagitis Esophageal reflux Type 2 diabetes mellitus without complication, unspecified whether retirement insulin use (HCC) Morbid obesity, unspecified obesity type (HCC) documented in this encounter [facility]* Diagnosis Ghosh's esophagus with dysplasia- Primary BENTLEY (obstructive sleep apnea) Obstructive sleep apnea (adult) (pediatric) Primary hypertension Unspecified essential hypertension Gastroesophageal reflux disease without esophagitis Esophageal reflux Type 2 diabetes mellitus without complication, unspecified whether intermediate accountant insulin use (HCC) Morbid obesity, unspecified obesity type (HCC) [facility]* Diagnosis Morbid obesity due to excess calories (HCC)- Primary BENTLEY (obstructive sleep apnea) Obstructive sleep apnea (adult) (pediatric) Hypertension, unspecified type Other specified diabetes mellitus with other specified complication, unspecified whether retirement insulin use (HCC) [facility]* Diagnosis Dyspepsia Dyspepsia and other specified disorders of function of stomach documented in this encounter [facility]* Diagnosis Ghosh's esophagus with dysplasia- Primary BENTLEY (obstructive sleep apnea) Obstructive sleep apnea (adult) (pediatric) Primary hypertension Unspecified essential hypertension Gastroesophageal reflux disease without esophagitis Esophageal reflux Type 2 diabetes mellitus without complication, unspecified whether retirement insulin use (HCC) Morbid obesity, unspecified obesity type (HCC) Delayed gastric emptying Dyspepsia and other specified disorders of function of stomach documented in this encounter [facility]* Diagnosis Ghosh's esophagus with dysplasia- Primary BENTLEY (obstructive sleep apnea) Obstructive sleep apnea (adult) (pediatric) Primary hypertension Unspecified essential hypertension Gastroesophageal reflux disease without esophagitis Esophageal reflux Type 2 diabetes mellitus without complication, unspecified whether intermediate accountant insulin use (HCC) Morbid obesity, unspecified obesity type (HCC) Delayed gastric emptying Dyspepsia and other specified disorders of function of stomach documented in this encounter [facility]* Diagnosis Type 2 diabetes mellitus without complication, unspecified whether intermediate accountant insulin use (HCC) Delayed gastric emptying Dyspepsia and other specified disorders of function of stomach documented in this encounter [facility]* Diagnosis Ghosh's esophagus with dysplasia- Primary BENTLEY (obstructive sleep apnea) Obstructive sleep apnea (adult) (pediatric) Primary hypertension Unspecified essential hypertension Gastroesophageal reflux disease without esophagitis Esophageal reflux Type 2 diabetes mellitus without complication, unspecified whether retirement insulin use (HCC) Morbid obesity, unspecified obesity type (HCC) Delayed gastric emptying Dyspepsia and other specified disorders of function of stomach Type 2 diabetes mellitus without complication, unspecified whether intermediate accountant insulin use (HCC) Delayed gastric emptying Dyspepsia and other specified disorders of function of stomach documented in this encounter [facility]* Diagnosis Ghosh's esophagus with dysplasia- Primary BENTLEY (obstructive sleep apnea) Obstructive sleep apnea (adult) (pediatric) Primary hypertension Unspecified essential hypertension Gastroesophageal reflux disease without esophagitis Esophageal reflux Type 2 diabetes mellitus without complication, unspecified whether retirement insulin use (HCC) Morbid obesity, unspecified obesity type (HCC) Delayed gastric emptying Dyspepsia and other specified disorders of function of stomach Type 2 diabetes mellitus without complication, unspecified whether retirement insulin use (HCC) Delayed gastric emptying Dyspepsia and other specified disorders of function of stomach [facility]* Diagnosis Ghosh's esophagus with dysplasia- Primary BENTLEY (obstructive sleep apnea) Obstructive sleep apnea (adult) (pediatric) Primary hypertension Unspecified essential hypertension Gastroesophageal reflux disease without esophagitis Esophageal reflux Type 2 diabetes mellitus without complication, unspecified whether intermediate accountant insulin use (HCC) Morbid obesity, unspecified obesity type (HCC) Delayed gastric emptying Dyspepsia and other specified disorders of function of stomach Type 2 diabetes mellitus without complication, unspecified whether retirement insulin use (HCC) Delayed gastric emptying Dyspepsia and other specified disorders of function of stomach [facility]* Diagnosis Ghosh's esophagus with dysplasia- Primary BENTLEY (obstructive sleep apnea) Obstructive sleep apnea (adult) (pediatric) Primary hypertension Unspecified essential hypertension Gastroesophageal reflux disease without esophagitis Esophageal reflux Type 2 diabetes mellitus without complication, unspecified whether retirement insulin use (HCC) Morbid obesity, unspecified obesity type (HCC) Delayed gastric emptying Dyspepsia and other specified disorders of function of stomach Type 2 diabetes mellitus without complication, unspecified whether intermediate accountant insulin use (HCC) Delayed gastric emptying Dyspepsia and other specified disorders of function of stomach documented [facility]* Diagnosis Ghosh's esophagus with dysplasia- Primary BENTLEY (obstructive sleep apnea) Obstructive sleep apnea (adult) (pediatric) Primary hypertension Unspecified essential hypertension Gastroesophageal reflux disease without esophagitis Esophageal reflux Type 2 diabetes mellitus without complication, unspecified whether retirement insulin use (HCC) Morbid obesity, unspecified obesity type (HCC) Delayed gastric emptying Dyspepsia and other specified disorders of function of stomach Type 2 diabetes mellitus without complication, unspecified whether intermediate accountant insulin use (HCC) Delayed gastric emptying Dyspepsia and other specified disorders of function of stomach documented [facility]* Diagnosis Morbid obesity due to excess calories (HCC)- Primary Hypertension, unspecified type [facility]* Diagnosis Morbid obesity due to excess calories (HCC)- Primary Hypertension, unspecified type documented in this encounter [facility] note* Diagnosis Ghosh's esophagus with dysplasia- Primary BENTLEY (obstructive sleep apnea) Obstructive sleep apnea (adult) (pediatric) Primary hypertension Unspecified essential hypertension Gastroesophageal reflux disease without esophagitis Esophageal reflux Type 2 diabetes mellitus without complication, unspecified whether intermediate accountant insulin use (HCC) Morbid obesity, unspecified obesity type (HCC) Delayed gastric emptying Dyspepsia and other specified disorders of function of stomach Encounter for screening for tobacco use Pre-operative laboratory examination Pre-procedural laboratory examination Type 2 diabetes mellitus without complication, unspecified whether retirement insulin use (HCC) Delayed gastric emptying Dyspepsia and other specified disorders of function of stomach documented in this encounter [facility] note* Diagnosis Morbid obesity due to excess calories (HCC)- Primary Hypertension, unspecified type documented in this encounter [facility] note* Diagnosis Ghosh's esophagus with dysplasia- Primary BENTLEY (obstructive sleep apnea) Obstructive sleep apnea (adult) (pediatric) Primary hypertension Unspecified essential hypertension Gastroesophageal reflux disease without esophagitis Esophageal reflux Type 2 diabetes mellitus without complication, unspecified whether intermediate accountant insulin use (HCC) Morbid obesity, unspecified obesity type (HCC) Delayed gastric emptying Dyspepsia and other specified disorders of function of stomach Encounter for screening for tobacco use Pre-operative laboratory examination Pre-procedural laboratory examination Type 2 diabetes mellitus without complication, unspecified whether intermediate accountant insulin use (HCC) Delayed gastric emptying Dyspepsia and other specified disorders of function of stomach GERD (gastroesophageal reflux disease) Esophageal reflux documented in this encounter [facility] note* Diagnosis GERD (gastroesophageal reflux disease) Esophageal reflux documented in this encounter [facility] note* Diagnosis Gastroesophageal reflux disease without esophagitis- Primary Esophageal reflux documented in this encounter [facility] Discharge instructions* Attachments The following attachments cannot be sent through Care Everywhere. * Upper GI Endoscopy Discharge Instructions (Iraqi) * Moderate Sedation in Adults Discharge Instructions (Iraqi) documented in this [facility] for referral (narrative)* Consultation (Routine) - Pending Review Specialty Diagnoses / Procedures Referred By Adrian davies Referred To Contact Pulmonary Disease / Pulmonology Diagnoses BENTLEY (obstructive sleep apnea) Primary hypertension Morbid obesity, unspecified obesity type (HCC) Procedures [place] OFFICE/OUTPATIENT [facility] 60-74 MINUTES Bernadine Alvarado NP [address] [place] [address] [facility] [address] [place] [address] Referral ID Status Reason Start Date Expiration Date Visits Requested Visits Authorized [id number] Pending Review Specialty Services Required 02/28/2023 02/28/2024 1 1 * Consultation (Elective) - Pending Review Specialty Diagnoses / Procedures Referred By Adrian t Referred To Contact Cardiology Diagnoses Primary hypertension Type 2 diabetes mellitus without complication, unspecified whether retirement insulin use (HCC) Morbid obesity, unspecified obesity type (HCC) Procedures [place] OFFICE/OUTPATIENT NEW HIGH MDM 60-74 MINUTES Bernadine Alvarado NP [address] [place] [address] [address] [facility] [address] [place] [address] Referral ID Status Reason Start Date Expiration Date Visits Requested Visits Authorized [id number] Pending Review Specialty Services Required 02/28/2023 02/28/2024 1 1 [facility] Summary Purpose Family History No Family History Records FoundNo Family History Records FoundNo Family History Records FoundNo Family History Records FoundNo Family History Records Found Advance Directives No Advanced Directives Records FoundDocuments on File Type Date Recorded Patient 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 Matting Machine Operator Expl anation Advance Directives and Living Will Power of Network Operations Manager Latest Code Status on File Code Status Date Activated Date Inactivated Comments Full Code 03/15/2019 10:23 AM 03/15/2019 3:07 PM Documents on File Type Date Recorded Patient Barrel Rib Matting Machine Operator Expl anation Advance Directives and Living Will Power of Network Operations Manager Latest Code Status on File Code Status Date Activated Date Inactivated Comments Full Code 03/15/2019 10:23 AM 03/15/2019 3:07 PM Documents on File Type Date Recorded Patient Barrel Rib Matting Machine Operator Expl anation ACP-Advance Directive ACP-Power of Network Operations Manager Documents on File Type Date Recorded Patient Barrel Rib Matting Machine Operator Expl anation ACP-Advance Directive ACP-Power of Network Operations Manager Latest Code Status on File Code Status [...] WITH DOP/COLOR FLOW Edgar Dennis PA [address] [facility] [address] [place] [address] [address] [place] [address] Status Reason Specialty Diagnoses / Procedures Referred By Contact Referred To Contact Not Required - [facility] Radiology Diagnoses Oropharyngeal dysphagia Procedures FL Modified Barium Swallow W Video Sajan Ramos MD [address] [facility] [address] [place] [address] Status Reason Specialty Diagnoses / Procedures Re ferred By Contact Referred To Contact Not Required - Recondo Diagnoses Shortness of breath Procedures Full PFT Study With Bronchodilator Nash Cuellar MD [address] [facility] [address] [place] [address] Status Reason Specialty Diagnoses / Procedures Re ferred By Contact Referred To Contact Manual Review Required - [facility] Radiology Diagnoses Renal cyst Procedures US RETROPERITONEAL LIMITED Jack Rosa MD [address] [place] [address] Status Reason Specialty Diagnoses / Procedures Referre d By Contact Referred To Contact Closed Radiology Diagnoses Cervical radiculopathy Procedures MRI CERVICAL SPINE WO CONTRAST Sajan Ramos MD [address] [place] [address] Status Reason Specialty Diagnoses / Procedures Referre d By Contact Referred To Contact Open Radiology Diagnoses Oropharyngeal dysphagia Procedures US HEAD NECK SOFT TISSUE THYROID Edgar Dennis, EMILY [address] [place] [address] Specialty Diagnoses / Procedures Referred By Contac t Referred To Contact Radiology Diagnoses Type 2 diabetes mellitus without complication, unspecified whether intermediate accountant insulin use (HCC) Delayed gastric emptying Procedures NM gastric emptying solid Bernadine Alvarado NP [address] [place] [address] Referral ID Status Reason Start Date Expiration Date V isits Requested Visits Authorized [id number] Pending Review 06/23/2023 12/20/2023 3 3 Specialty Diagnoses / Procedures Referred By Contac t Referred To Contact Pulmonary Disease / Pulmonology Diagnoses BENTLEY (obstructive sleep apnea) Primary hypertension Morbid obesity, unspecified obesity type (HCC) Procedures NV OFFICE/OUTPATIENT NEW HIGH MDM 60-74 MINUTES Bernadine Alvarado NP [address] [place] [address] [facility] [address] [place] [address] Referral ID Status Reason Start Date Expiration Date Visits Requested Visits Authorized [id number] Pending Review Specialty Services Required 02/28/2023 02/28/2024 1 1 Specialty Diagnoses / Procedures Referred By Contac t Referred To Contact Cardiology Diagnoses Primary hypertension Type 2 diabetes mellitus without complication, unspecified whether retirement insulin use (HCC) Morbid obesity, unspecified obesity type (HCC) Procedures NV OFFICE/OUTPATIENT NEW HIGH MDM 60-74 MINUTES Bernadine Alvarado NP [address] [place] [address] [facility] [address] [place] [place] [address] Referral ID Status Reason Start Date Expiration Date V isits Requested Visits Authorized [id number] Closed Specialty Services Required 02/28/2023 02/28/2024 1 1 Referral ID Status Reason Start Date Expiration Date V isits Requested Visits Authorized [id number] Authorized 06/23/2023 12/20/2023 3 3 Assessments Diagnosis [...] phase History of Present Illness * Junito Walter, LITHOPONE MILL WORKER - 02/25/2020 1:00 PM EDT [facility] Speech Language Pathology Shawnee Mohr 1955 [...] and dated to either of our locations: [facility] [address] [address] [place], [place] [address] Thank you for your referral. Signature: documented in this encounter* Vanna Mccollum, LITHOPONE MILL WORKER - 03/04/2020 9:[address] [facility] Outpatient Speech Language Pathology Adult Daily Note Shawnee Mohr : 1955 Date: 03/04/2020 Visit Information: [employer] Medicare Total # of Visits Approved: (Medical necessity.) Total # of Visits to Date: 1 No Show: 0 Canceled Appointment: 0 Plan of care signed (Y/N): Faxed Certification Period: 02/25/2020-03/25/2020 Interventions used this date: Dysphagia Treatment and Instruction in Compensatory Strategies Subjective: Usp Goals: 1. Patient will tolerate least restrictive [...] *E-stim was recommended by evaluating therapist at [facility] Will contact doctors's office. Patient reports having [...] Mccollum SLP - 03/06/2020 8:[address] 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 Patient will tolerate least restrictive [...] *E-stim was recommended by evaluating therapist at [facility]. Doctors's office was closed on Tuesday. Secretaries [...] Mccollum SLP - 03/20/2020 9:[address] 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 Some difficulty with small pills. It is recommended that she take medication with applesauce. Usp Goals: 1. Patient will tolerate least restrictive [...] *E-stim was recommended by evaluating therapist at [facility]. 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 Total # of Visits Approved: (Medical necessity) Total # of Visits to Date: 3 No Show: 0 Canceled Appointment: 3 For today's appointment patient: Cancelled Reason given by patient: Conflicting appointment Follow-up needed: Pt has future appointments scheduled, no follow up needed Comments: Signature: documented in this encounter* Vanna Mccollum SLP - 04/01/2020 10:[address] 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 Some difficulty with small pills. It is recommended that she take medication with applesauce. Food Service Kitchen Supervisor Goals: 1. 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 Total # of Visits Approved: (medical [...] Name: Shawnee Mohr : 1955 Visit Information: LITHOPONE MILL WORKER Insurance Information: [facility] Medicare. Total # of Visits Approved: (Medical necessity.) Total # of Visits to Date: 6 No Show: 0 Canceled Appointment: 5 For today's appointment patient: Cancelled Reason given by patient: Patient ill Follow-up needed: Pt has future appointments scheduled, no follow up needed Comments: Signature: documented in this encounter* Vanna Mccollum SLP - 04/15/2020 1:[address] [facility] Speech Language Pathology Adult Daily Note Shawnee Mohr : 1955 Date: 04/15/2020 Visit Information: LITHOPONE MILL WORKER Insurance Information: [employer] Medicare.[employer] Medicare Total # of Visits to Date: 7 No Show: 0 Canceled Appointment: 4 Note cancel appointment revised. Plan of care signed (Y/N): Faxed Certification Period: 02/25/2020-03/25/2020 Interventions used this date: Dysphagia Treatment and Instruction in Compensatory Strategies Subjective: Patient reports improved swallowing. Some difficulty with small pills. It is recommended that she take medication with applesauce. Food Service Kitchen Supervisor Goals: 1. Patient will tolerate least restrictive [...] with 90% accuracy in combination with the LITHOPONE MILL WORKER using JEAN to the suprahyoidal musculature to [...] Mccollum SLP - 04/24/2020 11:[address] [facility] Speech Language Pathology Adult Daily Note Shawnee Mohr : 1955 Date: 04/24/2020 Visit Information: LITHOPONE MILL WORKER Insurance Information: [facility] Medicare.[employer] Medicare Total # of [...] recommended that she take medication with applesauce. Usp Goals: 1. Patient will tolerate least restrictive [...] with 90% accuracy in combination with the LITHOPONE MILL WORKER using JEAN to the suprahyoidal musculature to [...] Mccollum SLP - 04/29/2020 4:[address] [facility] Speech Language Pathology Adult Daily Note Shawnee Mohr : 1955 Date: 04/29/2020 Visit Information: LITHOPONE MILL WORKER Insurance Information: [facility] Medicare.[facility] Medicare Total # of Visits Approved: (medical necessity.) Total # of Visits to Date: 10 No Show: 0 Canceled Appointment: 4 Plan of care signed (Y/N): Faxed Certification Period: 04/26/2020-05/26/2020 Interventions used this date: Dysphagia Treatment and Instruction in Compensatory Strategies Subjective: Patient reports improved swallowing. Some difficulty with small pills. It is recommended that she take medication with applesauce. Food Service Kitchen Supervisor Goals: 1. Patient will tolerate least restrictive [...] with 90% accuracy in combination with the LITHOPONE MILL WORKER using JEAN to the suprahyoidal musculature to [...] Mccollum SLP - 05/01/2020 11:[address] [facility] Speech Language Pathology Adult Daily Note Shawnee Mele Mohr : 1955 Date: 05/01/2020 Visit Information: LITHOPONE MILL WORKER Insurance Information: [facility] Medicare.[facility] Medicare Total # of Visits Approved: (Medical necessity.) Total # of Visits to Date: 11 No Show: 0 Canceled Appointment: 4 Plan of care signed (Y/N): Faxed Certification Period: 04/26/2020-05/26/2020 Interventions used this date: Dysphagia Treatment and Instruction in Compensatory Strategies Subjective: Patient reports vocal quality is much better and that she has an occasional throat clear. Food Service Kitchen Supervisor Goals: 1. Patient will tolerate least restrictive [...] with 90% accuracy in combination with the LITHOPONE MILL WORKER using JEAN to the suprahyoidal musculature to [...] Mccollum SLP - 05/06/2020 9:00 AM EDT [][facility] [place] [][facility] [address] [address] [place], [place] [address] [place], [place] [address] [facility] Outpatient Speech Language Pathology Adult Discharge [...] with 90% accuracy in combination with the LITHOPONE MILL WORKER using JEAN to the suprahyoidal musculature to [...] Initial:5:CJ Electronically signed by: Vanna Mccollum M.A., CCC-LITHOPONE MILL WORKER Date: 05/06/2020, 4:21 PM * Vanna Mccollum SLP - 05/06/2020 9:00 AM EDT [facility] Speech Language Pathology Adult Daily Note Shawnee Mohr : 1955 Date: 05/06/2020 Visit Information: LITHOPONE MILL WORKER Insurance Information: [facility] Medicare.[employer] Medicare Total # of Visits Approved: (Medical necessity) Total # of Visits to Date: 12 No Show: 0 Canceled Appointment: 4 Plan of care signed (Y/N): Faxed Certification Period: 04/26/2020-05/26/2020 Interventions used this date: Dysphagia Treatment and Instruction in Compensatory Strategies Subjective: Patient reports vocal quality is much better and that she has an occasional throat clear. Food Service Kitchen Supervisor Goals: 1. Patient will tolerate least restrictive [...] with 90% accuracy in combination with the LITHOPONE MILL WORKER using JEAN to the suprahyoidal musculature to [...] Speech Therapy Cancellation/No-show Note Patient Name: Shawnee Mohr : 1955 Date: 03/11/2020 Visit Information: LITHOPONE MILL WORKER Insurance Information: [employer] Medicare. Total # [...] Other: Comments: Electronically signed by: Vanna Mccollum CCC-LITHOPONE MILL WORKER, Date: 03/11/2020, Time: 9:06 AM documented in this encounter* Vanna Mccollum SLP - 04/22/2020 9:[address] [facility] Speech Language Pathology Adult Daily Note Shawnee Mohr : 1955 Date: 04/22/2020 Visit Information: LITHOPONE MILL WORKER Insurance Information: [facility] Medicare.[employer] Medicare Total # of [...] recommended that she take medication with applesauce. Food Service Kitchen Supervisor Goals: 1. Patient will tolerate least restrictive [...] with 90% accuracy in combination with the LITHOPONE MILL WORKER using JEAN to the suprahyoidal musculature to [...] Mccollum SLP - 04/03/2020 1:[address] [facility] Speech Language Pathology Adult Daily Note Shawnee Mohr : 1955 Date: 04/03/2020 Visit Information: LITHOPONE MILL WORKER Insurance Information: [facility] Medicare.[employer] Medicare Total # of Visits Approved: (medical necessity.) Total # of Visits to Date: 5 No Show: 0 Canceled Appointment: 3 Plan of care signed (Y/N): Faxed Certification Period: 02/25/2020-03/25/2020 Interventions used this date: Dysphagia Treatment and Instruction in Compensatory Strategies Subjective: Patient reports improved swallowing. Some difficulty with small pills. It is recommended that she take medication with applesauce. Usp Goals: 1. Patient will tolerate least restrictive [...] with 90% accuracy in combination with the LITHOPONE MILL WORKER using JEAN to the suprahyoidal musculature to [...] Mccollum SLP - 03/27/2020 9:[address] [facility] Speech Language Pathology Adult Daily Note Shawnee Mohr : 1955 Date: 03/27/2020 Visit Information: LITHOPONE MILL WORKER Insurance Information: [facility] Medicare.[facility] Medicare Total # of Visits Approved: (Medically necessary) Total # of Visits to Date: 4 No Show: 0 Canceled Appointment: 3 Plan of care signed (Y/N): Faxed Certification Period: 02/25/2020-03/25/2020 Interventions used this date: Dysphagia Treatment and Instruction in Compensatory Strategies Subjective: Patient reports improved swallowing. Some difficulty with small pills. It is recommended that she take medication with applesauce. Food Service Kitchen Supervisor Goals: 1. Patient will tolerate least restrictive [...] *E-stim was recommended by evaluating therapist at [facility]. Doctors's office contacted again this date, spoke [...] sent through Care Everywhere. * Cervical: Exercises (Iraqi) documented in this encounter Additional Source Comments INFORMATION SOURCE (unrecogn ized section and content) DATE CREATED AUTHOR AUTHOR'S ORGANIZ ATION 02/15/2020 [facility] DATE CREATED AUTHOR AUTHOR'S ORGANIZ ATION 06/01/2020 [facility] DATE CREATED AUTHOR AUTHOR'S ORGANIZ ATION 10/25/2021 [facility] DATE CREATED AUTHOR AUTHOR'S ORGANIZ ATION 09/23/2023 [facility] Reason for Visit (unrecogniz ed section and content) Status Reason Specialty Diagnoses / Procedures Referred By Contact Referred To Contact Pending Status Check - [facility] Radiology Diagnoses History of hypercalcemia Hyperparathyroidism due to renal insufficiency (HCC) Parathyroid adenoma Procedures NM PARATHYORID W SPECT NM Parathyroid Scan HC NM PARATHYROID SCAN Edgar Dennis PA [address] [place] [address] Status Reason Specialty Diagnoses / Procedures Referred By Contact Referred To Contact Not Required - [facility] Radiology Diagnoses Oropharyngeal dysphagia Procedures FL Modified Barium Swallow W Video Sajan Ramos MD [address] [place] [address] Status Reason Specialty Diagnoses / Procedures Re ferred By Contact Referred To Contact Not Required - [facility] Diagnoses Shortness of breath Procedures Full PFT Study With Bronchodilator Nash Cuellar MD [address] [place] [address] Status Reason Specialty Diagnoses / Procedures Re ferred By Contact Referred To Contact Manual Review Required - [facility] Radiology Diagnoses Renal cyst Procedures US RETROPERITONEAL LIMITED Jack Rosa MD [address] [place] [address] Status Reason Specialty Diagnoses / Procedures Referred By Contact Referred To Contact Authorized Specialty Services Required Speech Pathology / Speech Therapy Diagnoses Dysarthria Procedures Visits based on medical necessity copay $35 per visits Follows medicare guidelines Effective 12/26/19 Ref#[id number] 03/03@[email or web address] spoke to tonja re: benefits/ca [employer] 06/25/2020 Sajan Ramos MD [address] [facility] [address] [place] [address] Dominik Sage, LITHOPONE MILL WORKER Status Reason Specialty Diagnoses / Procedures Referre d By Contact Referred To Contact Closed Radiology Diagnoses Cervical radiculopathy Procedures MRI CERVICAL SPINE WO CONTRAST Sajan Ramos MD [address] [facility] [address] [place] [address] Reason Comments Shoulder Pain Right upper arm, cecilio ulder, right side of neck pain x 1 week, worse yesterday Status Reason Specialty Diagnoses / Procedures Referre d By Contact Referred To Contact Open Radiology Diagnoses Oropharyngeal dysphagia Procedures US HEAD NECK SOFT TISSUE THYROID Edgar Dennis, PA [address] [facility] [address] [place] [address] Reason Comments Nutrition Counseling BNA initial Reason Onset Date Comments Financial File 02/08/2023 Financial File 2 023 Surgery Scheduling 02/08/2023 Initial Sched uling - Orders Pended Reason Onset Date Comments Financial File 02/08/2023 Financial File 2 023 Surgery Scheduling 02/08/2023 Initial Sched uling - Orders Pended Reason Comments Obesity Reason Comments EGD EGD order Specialty Diagnoses / Procedures Referred By Adrian davies Referred To Contact Diagnoses Dyspepsia Dyspepsia [R10.13] Procedures NV EGD TRANSORAL BIOPSY SINGLE/MULTIPLE EGD WITH BIOPSY Ole Faulkner MD [address] [place] [address] [address] [place] [address] [place] [address] Referral ID Status Reason Start Date Expiration Date Visits Re quested Visits Authorized [id number] 1 1 Reason Onset Date Comments Financial File 02/08/2023 Financial File 2 023 Surgery Scheduling 02/08/2023 Initial Sched uling - Orders Pended Reason Onset Date Comments Financial File 02/08/2023 Financial File 2 023 Surgery Scheduling 02/08/2023 Initial Sched uling - Orders Pended Prior Authorization 02/08/2023 GES approved Specialty Diagnoses / Procedures Referred By Adrian davies Referred To Contact Radiology Diagnoses Type 2 diabetes mellitus without complication, unspecified whether intermediate accountant insulin use (HCC) Delayed gastric emptying Procedures NM gastric emptying solid Bernadine Alvarado NP [address] [facility] [address] [place] [address] Referral ID Status Reason Start Date Expiration Date V isits Requested Visits Authorized [id number] Authorized 06/23/2023 12/20/2023 3 3 Reason Comments Weight Loss D/E 2 of 3 Reason Comments Weight Loss D/E 3 of 3 final Specialty Diagnoses / Procedures Referred By Adrian t Referred To Contact Diagnoses GERD (gastroesophageal reflux disease) GERD (gastroesophageal reflux disease) [K21.9] Procedures NV EGD TRANSORAL BIOPSY SINGLE/MULTIPLE EGD WITH BIOPSY Ole Faulkner MD [address] [facility] [address] [place] [address] [facility] [address] [place] [address] Referral ID Status Reason Start Date Expiration Date Visits Re quested Visits Authorized [id number] 1 1 Reason Comments Nutrition Counseling BNA Follow Up Reason Onset Date Comments Abnormal Lab 09/13/2023 Low iron Care Teams (unrecognized sec tion and content) Shift Supervisor Melting Relationship Specialty Start Date End Date Alexis Epperson [address] [place] [address] PCP - General Internal Medicine 01/27/23 Ole Faulkner MD [address] [facility] [address] [place] [address] Surgeon General Surgery 02/04/23 Shift Supervisor Melting Relationship Specialty Start Date End Date Aleixs Epperson B [address] [place] [address] PCP - General Internal Medicine 01/27/23 Ole Faulkner MD [address] [facility] [address] [place] [address] Surgeon General Surgery 02/04/23 Shift Supervisor Melting Relationship Specialty Start Date End Date Alexis Epperson B [address] [place] [address] PCP - General Internal Medicine 01/27/23 Ole Faulkner MD [address] [place], [place] [id number] Surgeon General Surgery 02/04/23 Shift Supervisor Melting Relationship Specialty Start Date End Date Alexis Epperson [address] [place] [address] PCP - General Internal Medicine 01/27/23 Ole Faulkner MD [address] [place] [address] [address] [place], [place] [id number] Surgeon General Surgery 02/04/23 Shift Supervisor Melting Relationship Specialty Start Date End Date Alexis Epperson PCP - General Internal Medicine 01/27/23 Ole Faulkner MD [address] [place] [address] [address] [place], [place] [id number] Surgeon General Surgery 02/04/23 Shift Supervisor Melting Relationship Specialty Start Date End Date Alexis Epperson PCP - General Internal Medicine 01/27/23 Ole Faulkner MD [address] [place] [address] [address] [place], [place] [id number] Surgeon General Surgery 02/04/23 Shift Supervisor Melting Relationship Specialty Start Date End Date Alexis Epperson PCP - General Internal Medicine 01/27/23 Ole Faulkner MD [address] [place] [address] [address] [place], [place] [id number] Surgeon General Surgery 02/04/23 Shift Supervisor Melting Relationship Specialty Start Date End Date Alexis Epperson PCP - General Internal Medicine 01/27/[address] MD [address] [place], [place] [id number] Surgeon General Surgery 02/04/23 Shift Supervisor Melting Relationship Specialty Start Date End Date MichaelarmandoAlexis christianson PCP - General Internal Medicine 01/27/23 Ole Faulkner MD [address] [place], [place] [id number] Surgeon General Surgery 02/04/23 Shift Supervisor Melting Relationship Specialty Start Date End Date MichaelarmandoAnnmarie christiansonnovamildred Hernan PCP - General Internal Medicine 01/27/23 Ole Faulkner MD [address] [place] [address] [address] [place] [address] Surgeon General Surgery 02/04/23 Shift Supervisor Melting Relationship Specialty Start Date End Date MichaelarmandoAnnmarie christiansonnovamildred Hernan PCP - General Internal Medicine 01/27/23 Ole Faulkner MD [address] [place] [address] Surgeon General Surgery 02/04/23 Shift Supervisor Melting Relationship Specialty Start Date End Date MichaelarmandoAlexis christianson PCP - General Internal Medicine 01/27/23 Ole Faulkner MD [address] [place] [address] Street [address] [place], [place] [id number] Surgeon General Surgery 02/04/23 Shift Supervisor Melting Relationship Specialty Start Date End Date Alexis Epperson PCP - General Internal Medicine 01/27/23 Ole Faulkner MD [address] [place] [address] [address] [place], [place] [id number] Surgeon General Surgery 02/04/23 Shift Supervisor Melting Relationship Specialty Start Date End Date Michaeloneil Annmarienovamildred Hernan PCP - General Internal Medicine 01/27/23 Ole Faulkner MD [address] [place] [address] Street [address] [place] [address] Surgeon General Surgery 02/04/23 Shift Supervisor Melting Relationship Specialty Start Date End Date Michaelarmandomeghan Annmarienovamildred Hernan PCP - General Internal Medicine 01/27/23 Ole Faulkner MD [address] [place] [address] Street [address] [place] [address] Surgeon General Surgery 02/04/23 Shift Supervisor Melting Relationship Specialty Start Date End Date Michaeloneil Annmariezoienatalie Hernan PCP - General Internal Medicine 01/27/23 Ole Faulkner MD [address] [place] [address] Surgeon General Surgery 02/04/23 Shift Supervisor Melting Relationship Specialty Start Date End Date Alexis Epperson Hernan PCP - General Internal Medicine 01/27/23 Ole Faulkner MD [address] [place], [place] [id number] Surgeon General Surgery 02/04/23 Shift Supervisor Melting Relationship Specialty Start Date End Date Michaelarmandomeghan Annmariezoienatalie Hernan PCP - General Internal Medicine 01/27/23 Ole Faulkner MD [address] [place], [place] [id number] Surgeon General Surgery 02/04/23 Shift Supervisor Melting Relationship Specialty Start Date End Date Annmarie Eppersonnovamildred Hernan PCP - General Internal Medicine 01/27/23 Ole Faulkner MD [address] [place] [address] Street [address] [place] [address] Surgeon General Surgery 02/04/23 Shift Supervisor Melting Relationship Specialty Start Date End Date MichaelarmandoAnnmarie christiansonzoienatalie Hernan PCP - General Internal Medicine 01/27/23 Ole Faulkner MD [address] [place] [address] Surgeon General Surgery 02/04/23 Shift Supervisor Melting Relationship Specialty Start Date End Date Annmarie Eppersonnovamildred Hernan PCP - General Internal Medicine 01/27/23 Ole Faulkner MD [address] [place] [address] Surgeon General Surgery 02/04/23 Shift Supervisor Melting Relationship Specialty Start Date End Date Alexis Epperson PCP - General Internal Medicine 01/27/23 Ole Faulkner MD [address] [place] [address] [address] [place] [address] Surgeon General Surgery 02/04/23 Shift Supervisor Melting Relationship Specialty Start Date End Date MichaelChuyita riggsnatalie Hernan [address] [facility] [address] [place] [id number] PCP - General Internal Medicine 08/25/23 Ole Faulkner MD [address] [place] [address] [address] [place] [address] Surgeon General Surgery 02/04/23 Shift Supervisor Melting Relationship Specialty Start Date End Date MichaelAlexis riggs [address] [facility] [address] [place] [phone] PCP - General Internal Medicine 08/25/23 Ole Faulkner MD [address] [place] [address] [address] [place] [address] Surgeon General Surgery 02/04/23 Shift Supervisor Melting Relationship Specialty Start Date End Date Michaeloneil Annmariezoienatalie Becerra [address] [facility] [address] [place] [phone] PCP - General Internal Medicine 08/25/23 Ole Faulkner MD [address] [place] [address] [address] [place] [address] Surgeon General Surgery 02/04/23 Continuous Active and [...] BE BASED ON THE PRIMARY CLINICAL RECORDS. [facility] [employer] [facility]. provides no warranty or guarantee of the accuracy or completeness of information in this document.
[2023-10-02 04:37] LABS: Bedside Glucose 154 mg/dL (74-106)
[2023-10-02 04:50] LABS: Allen Test Positive; Base Excess -8 mmol/L (-2 to +2); Bicarbonate 19.7 mmol/L (22-26); Blood Gas Specimen Type ART; Mode Not entered; O2 Delivery Device Cannula; PO2 110 mmHG (75-100); SITE R Radial; SO2 97 % (95-99); Total Carbon Dioxide 21 mmol/L; pCO2 47.2 mmHg (35-45); pH 7.23 (7.35-7.45)
[2023-10-02 05:01] LABS: Absolute Neutrophil Count 9.4 X10^3/uL (2.0-7.7); Basophil# 0.02 X10^3/uL; Basophil% 0.2 % (0-1); Eosinophil# 0.07 X10^3/uL; Eosinophils% 0.6 % (0-5); Hematocrit 36.9 % (37-47); Hemoglobin 11.4 g/dL (12.0-15.0); Mean Corp Hgb Conc 30.9 g/dL (32-36); Mean Corpuscular Volume 93.9 fL (81-99); Mean Platelet Vol. 11.8 fl (6.2-12.0); Monocyte% 3.6 % (0-10); NRBC Flagged by Analyzer 0 % (0-5); Neutrophil # 9.38 X10^3/uL (2.7-7.7); Neutrophil % 85.1 % (47-70); Platelet Count 225 K/mm3 (150-450); RBC Distribution Width CV 15.4 % (11.6-14.6); RBC Distribution Width SD 53.7 fl (35.1-43.9); Red Blood Count 3.93 M/mm3 (4.2-5.4)
--- NOTE | 2023-10-02 05:15 | RAD_ITS ---
INDICATION: sob EXAMINATION/TECHNIQUE: X-RAY - XR Chest 1 View COMPARISON: CR [facility] 2022 FINDINGS: EKG leads overlie the chest Lungs are expanded with persistent bibasilar atelectatic changes, no interval change since the previous study. Normal size heart. Normal mediastinum and khai. Normal visualized pulmonary arteries. Normal visualized aortic arch and descending thoracic aorta. There are diffuse degenerative changes of the visualized thoracic spine. Normal visualized ribs, clavicles, and shoulders. There is no demonstrated abnormality of the visualized soft tissue structures of the upper abdomen. RAD/Chest 1 View (Portable) IMPRESSION: Persistent bibasilar atelectasis, no interval change since the previous study Electronically Signed: Jessica Daniel MD at 6:06 EST ,
[2023-10-02 05:18] LABS: International Normalized Ratio 1.2; Partial Thromboplast Time 29.8 Seconds (24.1-36.2); Prothrombin Time (Protime)PT. 15.6 SECONDS (11.7-14.9)
[2023-10-02] MEDS: 0.9% Normal Saline (1000mL) 1,000 ML 999 ML IV ×3 (05:31→08:13)
[2023-10-02 05:55] LABS: AST(SGOT) 19 U/L (15-37); Alanine Aminotransfer ALT/SGPT 25 U/L (13-56); Albumin, Serum 2.8 g/dL (3.2-5.0); Alkaline Phosphatase 124 U/L (45-117); Anion Gap 8 (5-15); BUN 91 mg/dL (7-18); BUN/Creat Ratio 33.1 RATIO (10-20); Bilirubin, Direct 0.08 mg/dL (0.00-0.30); Calcium,Total 9.1 mg/dL (8.5-10.1); Chloride 109 mmol/L (98-107); Creatinine, Serum 2.75 mg/dL (0.55-1.02); EST Glomerular Filtration Rate 18 mL/min (>60); Est Glom Filt Rate - Afr Amer 22 mL/min (>60); Estimated Creatinine Clearance 14.77 ml/min; Globulin 3.5 g/dL (2.2-4.2); Glucose 163 mg/dL (74-106); Potassium 5.8 mmol/L (3.5-5.1); Protein, Total 6.3 g/dL (6.4-8.2); Sodium Level 136 mmol/L (136-145); Troponin-I HS 22 pg/mL (3.0-54.0)
[2023-10-02] MEDS: Albuterol 2.5 MG/3 ML VIAL.NEB. 10 MG INHALATION (06:04)
[2023-10-02 06:09] LABS: Bedside Glucose 155 mg/dL (74-106)
[2023-10-02] MEDS: Dextrose 10%-Water 250 ML 999 ML IV (06:10)
[2023-10-02] MEDS: Insulin Lispro 10 UNIT in Syringe 0 ML 6 UNIT IV (06:23)
[2023-10-02 06:25] LABS: Mucous, Urine 0 SEEN /hpf (<or=2+); Red Blood Cells-Urine 0 SEEN /hpf (0-5)
[2023-10-02 06:41] LABS: Lactic Acid 0.6 mmol/L (0.4-1.9)
[2023-10-02] MEDS: Norepinephrine 8 MG in 0.9% Normal Saline (250mL Bag) 242 ML 9.40000000000000036 MG CONT INF (06:43)
[2023-10-02] MEDS: 0.9% Normal Saline (1000mL) 1,000 ML 200 ML IV ×2 (06:48→11:48)
[2023-10-02 07:03] LABS: Color, Urine Yellow (Yellow); Glucose, Dipstick 50 mg/dl (Normal); Ketone-Dipstick Negative (Negative); Leukocyte Esterase-Dipstick 500 /ul (Negative); Nitrite-Dipstick Negative (Negative); Occult Blood-Urine Negative /ul (Negative); Protein-Dipstick 30 mg/dl (Negative); Urine Bilirubin Dipstick Negative (Negative); Urine Clarity Clear (Clear); Urine Urobilinogen Normal (Normal)
[2023-10-02 07:12] LABS: Bacteria 1+ /hpf (None Seen); Squamous Epithelial Cells - UA 0-5 SEEN /hpf (5-10); White Blood Cells 10-25 SEEN /hpf (0-5)
[2023-10-02 07:48] LABS: Thyroid Stim Hormone (TSH) 3.88 uIU/mL (0.358-3.74)
--- NOTE | 2023-10-02 07:59 | NURSING ---
DR MILLER FOR DR EDWARDS
[2023-10-02] MEDS: Ceftriaxone 1 GM/50 ML BAG IV (09:25)
--- NOTE | 2023-10-02 10:03 | NURSING ---
ICU KITTOE SEPTIC SHOCK, DEHYDRATION, CHRONIC KIDNEY DISEASE
--- NOTE | 2023-10-02 10:06 | PCM.HP.STD ---
HPI - General General Date of Admission: 10/02/23 Date of Service: 10/02/23 Chief Complaint: Altered mental status and falls HPI Narrative YVES NIÑO, is a 68 F resident of an [facility] was brought to the emergency department after he was found on the floor asleep. Patient was subsequently brought to the emergency department where patient was found to be hypotensive. Patient was resuscitated with IV fluid without much response. Patient was also noted to have acute cystitis. An assessment of septic shock with failure of response to IV fluid was made patient started on broad-spectrum antibiotic therapy started on pressor support with Levophed admitted to the intensive care unit for further management [facility] Medical History Abnormal thyroid function test Anemia Anxiety Anxiety and depression Arthritis Back pain Bilateral lower extremity edema Blackout Chronic neck and back pain CKD (chronic kidney disease), stage III CPAP (continuous positive airway pressure) dependence Depression Diabetes Dietary restriction Difficulty balancing when standing Difficulty swallowing Dizziness Essential hypertension Fatigue Fatty liver Fibromyalgia Fibrosis of liver Flu vaccine need GERD (gastroesophageal reflux disease) Glaucoma Gout Hematuria High cholesterol History of echocardiogram History of pain when walking History of renal disease History of stress test History of thyroid nodule Hx of phlebitis Hyperlipidemia Insomnia Insulin dependent diabetes mellitus Leg cramps Limb weakness Liver disease Loss of hearing Lyme disease Macular degeneration Migraine headache Morbid obesity Myositis Non-smoker Obesity BENTLEY on CPAP Osteoporosis Polymyositis Restless legs Sensorineural hearing loss of both ears Shoulder pain Sinusitis Type 2 diabetes mellitus Vitamin D deficiency Wears glasses Home Medications CPAP #1 ea 09/24/20 [History Last Taken Unknown] aspirin 81 mg tablet,delayed release 81 mg PO DAILY heart health 09/24/20 [History Last Taken Unknown] blood pressure monitor (Blood Pressure Kit) #1 ea 09/24/20 [History Last Taken Unknown] blood sugar diagnostic (Accu-Chek Christi Plus test strips) #10 ea 09/24/20 [History Last Taken Unknown] blood-glucose meter #1 ea 09/24/20 [History Last Taken Unknown] lancets (Accu-Chek Softclix Lancets) #100 ea 09/24/20 [History Last Taken Unknown] latanoprost 0.005 % eye drops 1 drp ophthalmic (eye) PRN PRN MACULAR DEGENRATION 02/24/21 [History Last Taken Unknown] simethicone 80 mg chewable tablet 80 mg PO 4X/DAY PRN Flatulence #30 tabs 12/07/21 [Rx Last Taken Unknown] vitamin E 268 mg (400 unit) capsule 800 unit PO DAILY vitamin #60 caps 02/08/22 [Rx Last Taken Unknown] Bilateral wrist splints #2 ea 06/07/22 [Rx Last Taken Unknown] Trulicity 4.5 mg/0.5 mL subcutaneous pen injector (dulaglutide) 4.5 mg (0.5 mL) subcut QWEEK diabetes #2 mL 07/27/22 [Rx Last Taken Unknown] pen needle, diabetic 32 gauge x 1/4 (Novofine 32) #200 ea 07/27/22 [Rx Last Taken Unknown] cholestyramine (with sugar) 4 gram oral powder 4 g PO DAILY digestion #348.6 grams 08/12/22 [Rx Last Taken Unknown] fluticasone propionate 50 mcg/actuation nasal spray,suspension 2 spray intranasal PRN PRN Nasal Congestion 09/06/22 [History Last Taken Unknown] lisinopril 2.5 mg tablet See Rx Instructions .Route .COMPLEX blood pressure #90 TABLETS 10/26/22 [Rx Last Taken Unknown] pantoprazole 40 mg tablet,delayed release 40 mg PO BID reflux #180 tabs 01/04/23 [Rx Last Taken Unknown] ezetimibe 10 mg tablet (Zetia) 10 mg PO DAILY #60 tabs 02/28/23 [Rx Last Taken Unknown] insulin lispro 100 unit/mL subcutaneous pen (Humalog KwikPen (U-100) Insulin) 12 unit subcut TID 02/28/23 [History Last Taken Unknown] Jardiance 10 mg tablet (empagliflozin) 10 mg PO DAILY #30 tabs 03/14/23 [Rx Last Taken Unknown] denosumab 60 mg/mL subcutaneous syringe (Prolia) 60 mg subcut [id number] bone health #1 mL 03/17/23 [Rx Last Taken Unknown] insulin degludec 100 unit/mL (3 mL) subcutaneous pen (Tresiba FlexTouch U-100 insulin) 40 unit (0.4 mL) subcut QHS #36 mL 07/11/23 [Rx Last Taken Unknown] duloxetine 60 mg capsule,delayed release See Rx Instructions .Route .COMPLEX #180 caps 08/01/23 [Rx Last Taken Unknown] cholecalciferol (vitamin D3) 1,250 mcg (50,000 unit) capsule 1,250 mcg PO QWEEK vitamin #30 caps 08/22/23 [Rx Last Taken Unknown] amitriptyline 100 mg tablet 200 mg (2 x 100 mg) PO QHS sleep #180 tabs 08/23/23 [Rx Last Taken Unknown] buspirone 10 mg tablet 10 mg PO TID mental health #270 tabs 08/23/23 [Rx Last Taken Unknown] cyclobenzaprine 10 mg tablet 5 - 10 mg (0.5 - 1 x 10 mg) PO TID PRN muscle spasm #270 tabs 08/23/23 [Rx Last Taken Unknown] loratadine 10 mg tablet 10 mg PO DAILY allergies #90 tabs 08/23/23 [Rx Last Taken Unknown] pregabalin 150 mg capsule 150 mg PO BID pain #180 caps 08/23/23 [Rx Last Taken Unknown] rimegepant 75 mg disintegrating tablet (Nurtec ODT) 75 mg PO DAILY PRN migraine headache #8 tabs 08/23/23 [Rx Last Taken Unknown] albuterol sulfate 90 mcg/actuation aerosol inhaler (Ventolin HFA) 1 - 2 puff inhalation Q4H PRN PRN Wheezing #1 inh 09/11/23 [Rx Last Taken Unknown] metoprolol tartrate 25 mg tablet 12.5 mg (1/2 x 25 mg) PO BID #30 tabs 09/22/23 [Rx Last Taken Unknown] apixaban 5 mg tablet (Eliquis) 5 mg PO BID 10/02/23 [History Last Taken Unknown] ursodiol 250 mg tablet 250 mg PO DAILY gallstones 10/02/23 [History Last Taken Unknown] Allergy/AdvReac Type Severity Reaction Status Date / Time saliva substitute Allergy Severe Angioedema Verified 09/20/23 09:31 combination no.9 [From Biotene PBF] gemfibrozil AdvReac Severe Myalgia Verified 09/20/23 09:31 [id number] Reductase AdvReac Severe muscle pain Verified 09/20/23 09:31 Inhibitor Family History Brother Diabetes Mother Diabetes Heart disease Hypertension Grandmother Diabetes Sister Diabetes Heart disease Hypertension Thyroid disorder Father Kidney disease Grandfather Kidney disease Surgical History H/O: hysterectomy History of bilateral knee arthroplasty History of cholecystectomy History of esophagogastroduodenoscopy (EGD) Hx of colonoscopy Social History Smoking Status: Never smoker second hand exposure: No alcohol intake: never substance use type: does not use yessenia/druze: Shinto seatbelt use: always ROS Review of Systems ROS Unobtainable: due to encephalopathy Vital Signs Vital Signs Vital Signs: 10/02/23 04:14 10/02/23 04:14 10/02/23 06:06 Temperature 96.8 F L Temperature Source Temporal Pulse Rate 69 66 Respiratory Rate 17 13 Respiratory Effort Normal Non-Labored Blood Pressure 154/101 H Blood Pressure Mean 118 Blood Pressure Source Pulse Ox 91 Oxygen Delivery Method Nasal Cannula Nasal Cannula Oxygen Flow Rate (L/min) 4 4 10/02/23 06:43 10/02/23 05:00 10/02/23 05:01 Temperature 95.6 F L Temperature Source Core Pulse Rate 67 66 Respiratory Rate 14 14 Respiratory Effort Blood Pressure 74/50 L 80/51 L 79/52 L Blood Pressure Mean 58 60 61 Blood Pressure Source Monitor Pulse Ox 99 Oxygen Delivery Method Room Air Oxygen Flow Rate (L/min) 10/02/23 05:21 10/02/23 06:00 10/02/23 06:59 Temperature 95.6 F L Temperature Source Core Pulse Rate 65 67 Respiratory Rate 14 14 Respiratory Effort Blood Pressure 66/42 L 91/52 L Blood Pressure Mean 50 65 Blood Pressure Source Pulse Ox 99 100 Oxygen Delivery Method Room Air Room Air Oxygen Flow Rate (L/min) 10/02/23 07:00 10/02/23 07:15 10/02/23 07:45 Temperature Temperature Source Pulse Rate 67 63 69 Respiratory Rate 13 Respiratory Effort Blood Pressure 96/60 102/64 103/60 Blood Pressure Mean 72 76 74 Blood Pressure Source Pulse Ox 99 Oxygen Delivery Method Room Air Oxygen Flow Rate (L/min) 10/02/23 08:00 10/02/23 08:30 10/02/23 08:45 Temperature 96 F L Temperature Source Core Pulse Rate 69 68 69 Respiratory Rate 12 Respiratory Effort Blood Pressure 115/75 109/75 98/58 L Blood Pressure Mean 88 86 71 Blood Pressure Source Pulse Ox 99 Oxygen Delivery Method Room Air Oxygen Flow Rate (L/min) 10/02/23 09:00 10/02/23 09:15 10/02/23 09:28 Temperature 96.0 F L Temperature Source Core Pulse Rate 68 68 Respiratory Rate 12 Respiratory Effort Blood Pressure 83/53 L 87/52 L 81/50 L Blood Pressure Mean 63 63 60 Blood Pressure Source Pulse Ox 100 Oxygen Delivery Method Room Air Oxygen Flow Rate (L/min) 10/02/23 09:42 Temperature 96 F L Temperature Source Core Pulse Rate 67 Respiratory Rate 12 Respiratory Effort Blood Pressure 78/48 L Blood Pressure Mean 58 Blood Pressure Source Pulse Ox 100 Oxygen Delivery Method Room Air Oxygen Flow Rate (L/min) Weight Weight: 107.1 kg Body Mass Index (BMI) 44.6 Physical Exam Narrative GENERAL: Significantly lethargic HEENT: Atraumatic; normocephalic EYES; Anicteric, Normal Conjunctiva NECK; supple, normal thyroid, RESPIRATORY: Diminished to auscultation CARDIOVASCULAR: Regular S1 S2, GI: soft, normoactive bowel sounds, : No Renal angle tenderness; EXTREMITIES: No edema, no clubbing, MUSCULOSKELETAL: no muscle wasting NEURO: Awake; no lateralizing signs. SKIN: No Rash PSYCH; lethargic Results Lab / Micro Data 10/02/23 04:48 10/02/23 04:48 Labs: Laboratory Results - last 24 hr 10/02/23 04:18: POC Glucose 154 H 10/02/23 04:45: PT 15.6 H, INR 1.2, APTT 29.8 10/02/23 04:48: WBC 11.0, RBC 3.93 L, Hgb 11.4 L, Hct 36.9 L, MCV 93.9, MCH 29.0, MCHC 30.9 L, RDW Std Deviation 53.7 H, RDW Coeff of Paulo 15.4 H, Plt Count 225, MPV 11.8, Immature Gran % (Auto) 0.500, Neut % (Auto) 85.1 H, Lymph % (Auto) 10.0 L, [place] % (Auto) 3.6, Eos % (Auto) 0.6, Baso % (Auto) 0.2, Absolute Neuts (auto) 9.4 H, Absolute Lymphs (auto) 1.10, Nucleated RBC % 0, Sodium 136, Potassium 5.8 H, Chloride 109 H, Carbon Dioxide 19.0 L, Anion Gap 8, BUN 91 H, Creatinine 2.75 H, Estim Creat Clear Calc 14.77, Est GFR (MDRD) Af Amer 22 L, Est GFR (MDRD) Non-Af 18 L, BUN/Creatinine Ratio 33.1 H, Glucose 163 H, Calcium 9.1, Total Bilirubin 0.40, Direct Bilirubin 0.08, AST 19, ALT 25, Alkaline Phosphatase 124 H, Ammonia 17.0, Troponin I High Sens 22, Total Protein 6.3 L, Albumin 2.8 L, Globulin 3.5, TSH 3.88 H 10/02/23 05:51: POC Glucose 155 H 10/02/23 06:00: Lactic Acid 0.6 10/02/23 06:20: Urine Color Yellow, Urine Clarity Clear, Urine pH 5.0, Ur Specific [place] 1.020, Urine Protein 30 H, Urine Glucose (UA) 50 H, Urine Ketones Negative, Urine Occult Blood Negative, Urine Nitrite Negative, Urine Bilirubin Negative, Urine Urobilinogen Normal, Ur Leukocyte Esterase 500 H, Urine RBC 0 SEEN, Urine WBC 10-25 SEEN, Ur Squamous Epith Cells 0-5 SEEN, Urine Bacteria 1+, Urine Mucus 0 SEEN ABG Data ABG results: ABG 10/02/23 04:47 Specimen Type ART Sample Site R Radial pH 7.23 L Bicarbonate Actual 19.7 L Total CO2 21 Base Excess -8 L O2 Saturation 97 O2 % 2.0 ABG pCO2 47.2 H ABG pO2 110 H Raphael Test Positive O2 Delivery Device Cannula Vent Mode Not entered Imagaing Radiology Impression Brain CT 10/02/23 04:25 IMPRESSION: Mucosal thickening in the paranasal sinuses. Complete opacification of the right maxillary sinus. There is no acute intracranial abnormality. Electronically Signed: Jessica Daniel MD at 6:12 EST , Cervical Spine CT 10/02/23 04:25 IMPRESSION: Multilevel degenerative changes, as described above. Electronically Signed: Jessica Daniel MD at 6:26 EST , Chest X-Ray 10/02/23 05:15 IMPRESSION: Persistent bibasilar atelectasis, no interval change since the previous study Electronically Signed: Jessica Daniel MD at 6:06 EST , Assessment & Plan Assessment/Plan (1) Encephalopathy: (2) Septic shock: (3) Hyperkalemia: (4) Acute cystitis: QUALIFIERS: Hematuria presence: without hematuria Qualified Code(s): N30.00 - Acute cystitis without hematuria PLAN: Plan Patient is a 68-year-old female with multiple comorbidities resident of [facility] was brought to the emergency department with acute encephalopathy 1. Acute metabolic encephalopathy ? Secondary to septic shock from UTI patient has been admitted to the intensive care unit for treatment of underlying condition 2. Septic shock ? Secondary to acute cystitis. Patient was resuscitated with IV fluid without much response necessitating patient being started on pressor support with Levophed. Patient was started on broad-spectrum antibiotic therapy after cultures have been obtained. Patient response to therapy being monitored with serial lactic acid levels as well as response to blood pressure. 3. Acute kidney injury ? Superimposed on chronic kidney disease stage III. Patient baseline creatinine ranges from 1.5-1.6. Creatinine on admission was 2.75. Potential nephrotoxic medications held patient resuscitated with IV fluid with subsequent serial monitoring of electrolytes ordered 4. Hyperkalemia ? Secondary to acute kidney injury, repeat labs ordered and if still elevated patient to be treated with Kayexalate 5. Recent diagnosis of submassive PE with right ventricular strain ? Patient is on apixaban continue 6. Essential hypertension ? Patient blood pressure low on admission her antihypertensives held 7. Depression ? Patient psychotropic medications held in view of her significant encephalopathy 8. Class III obesity with BMI of 44.6 ? Complicating care 9. Diabetes mellitus type 2 ? Patient oral hypoglycemic agent held did continue with her antihypertensives 10. Anemia - Secondary to chronic disorder monitoring H&H and transfuse if patient becomes symptomatic or hemoglobin falls below 7 11. DVT prophylaxis ? Patient is on apixaban Critical time spent in the patient's overall evaluation,decision-making process, review of diagnostic data, adjustment of management, discussion with other providers, nursing nursing and ancillary staff involved in patient's care documentation,80 Minutes Sepsis Attestation Sepsis Alert: Yes Sepsis Attestation: Agree w/Sepsis Date exam was performed: 10/02/23 Time exam was performed: 10:06 Possible Source of Sepsis: Genitourinary Sepsis Organ Dysfunction Criteria Present: SBP < 90 mmHg or MAP < 65 mmHg, Creatinine > 2.0 mg/dL and New/Unexplained change in mental status Fluid Resuscitation Fluid Resuscitation ordered: 30 ml/kg fluid bolus ordered Amount of fluid ordered: 3,500 Sepsis Note Date exam was performed: 10/02/23 Time exam was performed: 11:24 Response to fluids: Non Fluid responsive hypotension and Vasopressors started Charges/Coding Multi Select Codes Hospitalists' Procedures Procedures: 21974 Critical Care 1st Hr and [id number] Critical Care Addl 30 Min
--- NOTE | 2023-10-02 10:35 | ED.RN ---
called report to Everardo in ICU
--- OUTSIDE RECORDS SUMMARY | 2023-10-02 10:47 | XMS RPT_ITS | CCD ---
Author Name Unknown Address [address] [place] [address] Organization [facility] Care Team Providers Care Bilingual Interpreter Name Role Phone GAIL CUADRA Unavailable Unavailable CHELSEY HC Unavailable Unavailable Adedipe, Adefunke G Primary Care [...] Attending Unavailable OLEGHE, EFEWONGBE Primary Care Unavailable FIRESTONE, OLE Attending Unavailable STEPHANIE PEREIRA Referring Unavailable [...] Date of Onset Reaction(s) Facility (20 sources[facility] 0 Other (See Comments) [place], [place] (20 sources) Biotin Drug Allergy 3 Anaphylaxis [facility] (20 sources) HMG-CoA reductase inhibitor Propensity to adverse reactions 3 Other [facility] (4 sources) Sodium Fluoride Drug Allergy 3 Shortness of breath [facility] Medications Current Medications Medication Drug Class(es) [...] Time Vital Sign Value Performing Clinician [facility] 08-29-2023 11:35-0500 Diastolic blood pressure 86 mm[Hg] Ole Faulkner MD Work Phone: [employer] 08-29-2023 11:35-0500 Heart rate 75 /min Ole Faulkner MD Work Phone: [employer] 08-29-2023 11:35-0500 Respiratory rate 18 /min Ole Faulkner MD Work Phone: [employer] 08-29-2023 11:35-0500 SaO2% (BldA) [Mass fraction] 98 % Ole Faulkner MD Work Phone: [employer] 08-29-2023 11:35-0500 Systolic blood pressure 128 mm[Hg] Ole Faulkner MD Work Phone: [employer] 08-29-2023 11:17-0500 Body temperature 97.5 [degF] Ole Faulkner MD Work Phone: [employer] 08-08-2023 10:05-0500 Body height 154.3 cm Brent Bang MD Work Phone: [employer] 08-08-2023 10:05-0500 Body mass index (BMI) [Ratio] 43.25 kg/m2 Brent Bang MD Work Phone: [employer] 08-08-2023 10:05-0500 Body weight 102.97 kg Brent Bang MD Work Phone: [facility] [employer] 08-08-2023 10:05-0500 Diastolic blood pressure 85 mm[Hg] Brent Bang MD Work Phone: [facility] [employer] 08-08-2023 10:05-0500 Heart rate 92 /min Brent Bang MD Work Phone: [facility] [employer] 08-08-2023 10:05-0500 Systolic blood pressure 131 mm[Hg] Brent Bang MD Work Phone: [facility] [employer] 07-25-2023 09:11-0400 Body height 154.3 cm Brent Bang MD Work Phone: [facility] [employer] 07-25-2023 09:11-0400 Body mass index (BMI) [Ratio] 43.74 kg/m2 Brent Bang MD Work Phone: [facility] [employer] 07-25-2023 09:11-0400 Body weight 104.15 kg Brent Bang MD Work Phone: [employer] 07-25-2023 09:11-0400 Diastolic blood pressure 85 mm[Hg] Brent Bang MD Work Phone: [facility] [employer] 07-25-2023 09:11-0400 Heart rate 93 /min Brent aBng MD Work Phone: [facility] [employer] 07-25-2023 09:11-0400 Systolic blood pressure 127 mm[Hg] Brent Bang MD Work Phone: [employer] 06-23-2023 10:20-0400 Diastolic blood pressure 97 mm[Hg] Ole Faulkner MD Work Phone: [employer] 06-23-2023 10:20-0400 Heart rate 91 /min Ole Faulkner MD Work Phone: [employer] 06-23-2023 10:20-0400 SaO2% (BldA) [Mass fraction] 95 % Ole Faulkner MD Work Phone: [employer] 06-23-2023 10:20-0400 Systolic blood pressure 113 mm[Hg] Ole Faulkner MD Work Phone: [employer] 06-23-2023 09:59-0400 Body temperature 98.2 [degF] Ole Faulkner MD Work Phone: [employer] 06-23-2023 09:59-0400 Respiratory rate 16 /min Ole Faulkner MD Work Phone: [employer] 06-23-2023 09:28-0400 Body height 154.3 cm Ole Faulkner MD Work Phone: [employer] 06-23-2023 09:28-0400 Body mass index (BMI) [Ratio] 44.39 kg/m2 Ole Faulkner MD Work Phone: [employer] 06-23-2023 09:28-0400 Body weight 105.69 kg Ole Faulkner MD Work Phone: [employer] 02-18-2023 13:36-0400 Body height 154.[address] Work Phone: [employer] 02-18-2023 13:36-0400 Body mass index (BMI) [Ratio] 44.5 kg/m2 Estephania Winter RD Work Phone: [employer] 02-18-2023 13:36-0400 Body weight 105.[address] Work Phone: [employer] 05-20-2020 11:49-0400 BMI (Body Mass Index) 40.24 kg/m2 [facility] [place], 05-20-2020 11:49-0400 Body Temperature 98.2 [degF] [facility] [place] 05-20-2020 11:49-0400 Body weight 99.79 kg Axel [facility]ag[facility], [place] 05-20-2020 11:49-0400 BP Diastolic 89 mm[Hg] Cheng [facility] , [facility] 05-20-2020 11:49-0400 BP Systolic 143 mm[Hg] [facility] 05-20-2020 11:49-0400 Height 157.5 cm Cheng Mack [employer] , [facility] 05-20-2020 11:49-0400 Pulse (Heart Rate) 89 /min Cheng Mack [employer] - [place], [facility] 05-20-2020 11:49-0400 Pulse Oximetry 98 % Cheng Mack [employer] , [facility] 05-20-2020 11:49-0400 Respiratory Rate 16 /min Cheng Mack [facility] Encounters Encounter Date Encounter Type Care Provider Facility Start: 09-13-[address] Work Phone: [facility] [place] Procedures Date Procedure Procedure Detail Performing Clinician Start: 09-07-2023 Adult depression scr eening assessment Genet Rizo RD Work Phone: Start: 06-30-2023 Gastric emptying cytnhia ging study Bernadine Alvarado NP Work Phone: [...] limited Jack Rosa Work Phone: Start: 02-26-2020 SENIOR SOUS CHEF EVAL AND TREAT ZAC DENNIS Start: 02-25-2020 [...] cancer screen colonoscopy Colon cancer screen colonoscopy [facility] Work Phone: Start: 09-28-2026 Screening for malignant neoplasm of colon Colon [place] Start: 07-29-2026 DTaP/Tdap/Td vaccine (2 - Td) DTaP/Tdap/Td vaccine (2 - Td) [employer] Work Phone: Start: 07-29-2026 DTaP/Tdap/Td Vaccines (2 - Td or Tdap) DTaP/Tdap/Td Vaccines (2 - Td or Tdap) [facility] Start: 09-07-2024 Depression Screening Depression Screening [facility] Start: 09-05-2023 End: 09-05-2023 Telemedicine consultation with patient 09/05/2023 2:00 PM EST [facility] [place] [address] [place] [address] [place] [address] [facility] [place] Start: 08-29-2023 End: 08-29-2023 Admission to same day surgery center 08/29/2023 12:00 PM EST - 08/29/2023 12:20 PM EST Surgery [facility] Endoscopy [address] [place] [address] Ole Faulkner MD [address] [place] [address] EGD WITH BIOPSY [74959 (CPT )] [facility] Endoscopy Immunizations Immunization Date Immunization Notes Care Provider Fa cility 06-26-2021 influenza virus vacc ine, unspecified formulation Brent Bang MD Work Phone: [facility] [employer] 05-27-2021 influenza virus vacc ine, unspecified formulation Estephania Winter RD Work Phone: [facility] [employer] 06-13-2019 influenza virus vacc ine, unspecified formulation [facility] [employer] Work Phone: 01-29-2019 zoster recombinant adjuvanted vaccine (SHINGRIX) 50 MCG/0.5ML SUSR injection [facility] [employer] Work Phone: 07-26-2018 Influenza Vaccine, unspecified formulation [facility] [employer] Phone: 07-26-2018 influenza, injectabl e, quadrivalent, contains preservative [facility] [employer] Phone: 08-22-2017 Influenza Vaccine, unspecified formulation [facility] [employer] Work Phone: 08-22-2017 influenza virus vacc ine, unspecified formulation [facility] [employer] Work Phone: 08-22-2017 influenza, injectabl e, quadrivalent, contains preservative [facility] [employer] Phone: 08-22-2017 pneumococcal conjuga te vaccine, 13 valent [facility] [employer] Phone: 07-29-2016 pneumococcal polysaccharide vaccine, 23 valent [facility] [employer] Work Phone: 07-29-2016 tetanus toxoid, redu sadaf diphtheria toxoid, and acellular pertussis vaccine, adsorbed [facility] [employer] Work Phone: Payers Date Payer Category Payer Medicare [employer] UHC AARP MEDICARE ADVANTAGE [id number] 2022-Present [phone] [address] [address] [place] [address] Medicare HMO [id number] 2019 Medicare [facility] MEDICARE [facility] MEDICARE COMPLETE xxxxxxxxx 2019-Present xxxxxxxxx [id number] 2019 Medicare UHC MEDICARE UHC MEDICARE COMPLETE [id number] 2019-Present [id number] 2019 Medicare [id number] .[id number] 2018 Unknown YONATHAN CHAVEZ [facility] xxxxxxxxxxx 2018-Present [phone] [address] [place] [address] xxxxxxxxxxx [id number] .[id number] 2018 Unknown [id number] 1955 Unknown [id number] 2.16.840.1.344751.3.579.2.182 1955 Unknown [id number] 2.16.840.1.588161.3.579.2.182 1955 Unknown [id number] 2.16.840.1.326740.3.579.2.182 1955 Unknown [id number] 2.16.840.1.587756.3.579.2.182 1955 Unknown [id number] 2.16.840.1.620784.3.579.2.182 1955 Unknown [id number] 2.16.840.1.447773.3.579.2.182 1955 Unknown [id number] 2.16.840.1.549190.3.579.2.182 1955 Unknown [id number] 2.16.840.1.376232.3.579.2.182 1955 Unknown [id number] 2.16.840.1.831323.3.579.2. 1955 Unknown [id number] 2.16.840.1.475428.3.579.2.182 1955 Unknown [id number] 2.16.840.1.520095.3.579.2.182 1955 Unknown [id number] 2.16.840.1.281644.3.579.2.182 1955 Unknown [id number] 2.16.840.1.001594.3.579.2. 1955 Unknown [id number] 2.16.840.1.931752.3.579.2.182 1955 Unknown [id number] 2.16.840.1.652781.3.579.2.182 1955 Unknown [id number] 2.16.840.1.370263.3.579.2.182 1955 Unknown [id number] 2.16.840.1.626458.3.579.2. 1955 Unknown [id number] 2.16.840.1.764245.3.579.2.182 1955 Unknown [id number] 2.16.840.1.963079.3.579.2.182 1955 Unknown [id number] 2.16.840.1.517603.3.579.2.182 Social History Date Type Detail Facility Start: 10-31-2019 End: 02-08-2023 Tobacco smoking status NHIS Never smoker [employer] Phone: Start: 10-31-2019 End: 03-27-2020 Alcohol intake Current non-drinker of alcohol (finding) [facility] Phone: Sex Assigned At Female [employer] Phone: Exposure to SARS-CoV -2 (event) Unable to assess [facility] Start: 03-27-2020 End: 02-08-2023 Tobacco use and exposure Never used [facility] Start: 05-20-2020 Alcohol intake Lifetime non-d gabriel (finding) [facility] Start: 05-20-2020 History SDOH Alcohol Frequency 1 [facility] Start: 02-08-2023 End: 05-12-2023 Exposure to SARS-CoV-2 (event) Not sure [facility] Start: 02-08-2023 Alcohol intake Ex-drinker (finding) [facility] [employer] Start: 1955 Sex Assigned At Not on file [facility] [employer] Start: 02-08-2023 End: 09-07-2023 History of Social function [employer] Start: 02-08-2023 End: 09-07-2023 Tobacco use panel [facility] [employer] Medical Equipment Procedure Code Equipment Code Equipment Origin al Text Equipment Identifier Dates Use TWICE DAILY [id number] Start: 06-20-2019 Pt test 4x daily befire meals and bedtime dx e11.65 [id number] Start: 03-26-2019 1 Device by Does not apply route 4 times daily (before meals and nightly) [id number] Start: 03-26-2019 Test 4x daily Dx E11.65 [id number] Start: 01-09-2020 Test 4 times emanuel ly before meals and bedtime [id number] Start: 01-09-2020 Use 4 times axel y (before meals and nightly) [id number] Start: 04-02-2020 Clinical Notes 04-21-2021 to 09-22-2023 Telephone Encounter - Bernadine Alvarado NP - 09/22/2023 11:06 AM ESTTelephone Encounter - Bernadine Alvarado NP - 09/22/2023 11:06 AM ESTTelephone Encounter - Genet Rizo RD - 09/22/2023 10:49 AM EST Note Date & Type Note Facility 09-22-2023 Telephone encounter Note Noted. [facility] Phone: 09-22-2023 Miscellaneous Notes Noted. Third attempt [...] to discuss labs. documented in this encounter [employer] 09-22-2023 Telephone encounter Note Third attempt to reach patient to discuss labs and unsuccessful. Will send letter via mail asking patient to call office regarding recommended vitamin replacement therapy. Will recheck labs as needed following call back. [facility] Phone: 09-21-2023 Telephone encounter Note Attempted to call patient regarding labs, however went to voicemail and mailbox is full. Will send another [employer] message to follow-up on labs. [facility] 09-13-2023 Telephone encounter Note Preop TB Labs (09/01/23) Iron: 45 (L) GFR: 36 (L) -- defer to PCP Lipids -- defer to PCP Sending MyChart message to patient to discuss labs. [facility] 09-05-2023 History of Present illness Narrative [facility] [place] BARIATRIC NUTRITION ASSESSMENT / DIET & EXERCISE [...] stated that they are currently in the [facility]. If the patient is a minor, permission has been obtained by the parent or guardian for the patient to receive medical care at this visit. Bariatric Nutrition Assessment completed by: Estephania Winter RD documented in this encounter [facility] 08-29-2023 Note Patient: Shawnee das Procedure Summary Date: 08/29/23 Room / Location: [facility] / [facility] Gastroenterology Anesthesia Start: 1101 Anesthesia Stop: 111 [...] once all PACU criteria has been met. [facility] 08-29-2023 Note Patient: Shawnee das Procedure Summary Date: 08/29/23 Room / Location: [place] [address] / [facility] Gastroenterology Anesthesia Start: 1101 Anesthesia Stop: 1116 [...] opportunity for questions and acknowledgement of understanding. [facility] 08-29-2023 Note Endoscopy Center- [facility] Patient Name: Shawnee Mohr Procedure Date: 08/29/2023 10:57 AM Gender: Female Date of : 1955 Age: 68 Admit Type: Outpatient Note Status: Finalized Endoscopist: Ole Faulkner MD, [id number] Procedure: Upper GI endoscopy Indications: Heartburn Findings: [...] medications. - Await pathology results. Referring MD: Aelxis Epperson Medicines: Monitored Anesthesia Care Procedure: Pre-Anesthesia [...] immediate complications. Procedure Code(s): --- Professional --- 05142, Esophagogastroduodenoscopy, flexible, transoral; with biopsy, single or multiple --- Technical --- 19798, Esophagogastroduodenoscopy, flexible, transoral; with biopsy, single or multiple Diagnosis Code(s): --- Professional --- K29.70, Gastritis, unspecified, without bleeding K44.9, Diaphragmatic hernia without obstruction or gangrene R12, Heartburn --- Technical --- K29.70, Gastritis, unspecified, without bleeding K44.9, Diaphragmatic hernia without obstruction or gangrene R12, Heartburn CPT copyright 2021 [employer]. All rights reserved. The codes documented in this report are preliminary and upon pc tech review may be revised to meet current compliance requirements. Attending Participation: I personally performed the entire procedure. Ole Faulkner MD. Ole Faulkner MD 08/29/2023 12:32:54 PM This report has been signed electronically. Number of Addenda: 0 Note Initiated On: 08/29/2023 10:57 AM [facility] 08-29-2023 Note Patient: Shawnee das Procedure Information Date/Time: 08/29/23 1200 Procedure: EGD WITH BIOPSY - 20 mins Location: [place] [address] / [facility] Gastroenterology Providers: Ole Faulkner MD Relevant Problems [...] CHOLECYSTECTOMY Comment: Freddy MEDINA 2018: HYSTERECTOMY Comment: [place] No date: TOTAL KNEE ARTHROPLASTY; Right Comment: [...] found for this or any previous visit. [facility] 08-29-2023 Note Endoscopy History an d [...] Past Surgical History: Procedure Laterality Date CHO[place]STECTOMY [place] HYSTERECTOMY 2018 [place] TOTAL KNEE ARTHROPLASTY Right [place] [facility] [place] [...] understanding and willingness to proceed with plan. [facility] 08-29-2023 Note Formatting of this n ote might be different from the original. [facility] Name: Shawnee Mohr Procedure Date: 08/29/2023 10:57 AM Gender: Female Date of : 1955 Age: 68 Admit Type: Outpatient Note Status: Finalized Endoscopist: Ole Faulkner MD, [id number] Procedure: Upper GI endoscopy Indications: Heartburn Findings: [...] immediate complications. Procedure Code(s): --- Professional --- 47240, Esophagogastroduodenoscopy, flexible, transoral; with biopsy, single or multiple --- Technical --- 92795, Esophagogastroduodenoscopy, flexible, transoral; with biopsy, single or multiple Diagnosis Code(s): --- Professional --- K29.70, Gastritis, unspecified, without bleeding K44.9, Diaphragmatic hernia without obstruction or gangrene R12, Heartburn --- Technical --- K29.70, Gastritis, unspecified, without bleeding K44.9, Diaphragmatic hernia without obstruction or gangrene R12, Heartburn CPT copyright 2021 [employer]. All rights reserved. The codes documented in this report are preliminary and upon pc tech review may be revised to meet current compliance requirements. Attending Participation: I personally performed the entire procedure. Ole Faulkner MD. Ole Faulkner MD 08/29/2023 12:32:54 PM This report has been signed electronically. Number of Addenda: 0 Note Initiated On: 08/29/2023 10:57 AM [facility] 08-29-2023 Note Formatting of this n ote might be different from the original. [facility] Patient Name: Shawnee Mohr Procedure Date: 08/29/2023 10:57 AM Gender: Female Date of : 1955 Age: 68 Admit Type: Outpatient Note Status: Finalized Endoscopist: Ole Faulkner MD, [id number] Procedure: Upper GI endoscopy Indications: Heartburn Findings: [...] immediate complications. Procedure Code(s): --- Professional --- 24355, Esophagogastroduodenoscopy, flexible, transoral; with biopsy, single or multiple --- Technical --- 09573, Esophagogastroduodenoscopy, flexible, transoral; with biopsy, single or multiple Diagnosis Code(s): --- Professional --- K29.70, Gastritis, unspecified, without bleeding K44.9, Diaphragmatic hernia without obstruction or gangrene R12, Heartburn --- Technical --- K29.70, Gastritis, unspecified, without bleeding K44.9, Diaphragmatic hernia without obstruction or gangrene R12, Heartburn CPT copyright 2021 [employer]. All rights reserved. The codes documented in this report are preliminary and upon pc tech review may be revised to meet current compliance requirements. Attending Participation: I personally performed the entire procedure. Ole Faulkner MD. Ole Faulkner MD 08/29/2023 12:32:54 PM This report has been signed electronically. Number of Addenda: 0 Note Initiated On: 08/29/2023 10:57 AM [facility] 08-29-2023 Miscellaneous Notes [facility] Patient Name: Shawnee Mohr Procedure Date: 08/29/2023 10:57 AM Gender: Female Date of : 1955 Age: 68 Admit Type: Outpatient Note Status: Finalized Endoscopist: Ole Faulkner MD, [id number] Procedure: Upper GI endoscopy Indications: Heartburn Findings: [...] immediate complications. Procedure Code(s): --- Professional --- 09164, Esophagogastroduodenoscopy, flexible, transoral; with biopsy, single or multiple --- Technical --- 36986, Esophagogastroduodenoscopy, flexible, transoral; with biopsy, single or multiple Diagnosis Code(s): --- Professional --- K29.70, Gastritis, unspecified, without bleeding K44.9, Diaphragmatic hernia without obstruction or gangrene R12, Heartburn --- Technical --- K29.70, Gastritis, unspecified, without bleeding K44.9, Diaphragmatic hernia without obstruction or gangrene R12, Heartburn CPT copyright 2021 [employer]. All rights reserved. The codes documented in this report are preliminary and upon pc tech review may be revised to meet current compliance requirements. Attending Participation: I personally performed the entire procedure. Ole Faulkner MD. Ole Faulkner MD 08/29/2023 12:32:54 PM This report has been signed electronically. Number of Addenda: 0 Note Initiated On: 08/29/2023 10:57 AM documented in this encounter [facility] 08-29-2023 History and physical note Images [...] Past Surgical History: Procedure Laterality Date CHOLE[place]STECTOMY [place] HYSTERECTOMY 2018 [place] TOTAL KNEE ARTHROPLASTY Right [place] [...] and willingness to proceed with plan. N [employer] Work Phone: 08-29-2023 History and physical note [...] Past Surgical History: Procedure Laterality Date CHOLECYSTECTOMY [place] HYSTERECTOMY 2018 [place] TOTAL KNEE ARTHROPLASTY Right [place] [...] proceed with plan. documented in this encounter [facility] 08-22-2023 Telephone encounter Note Spoke with this patient, she has been scheduled for phone visit for Nut with MB [facility] 08-22-2023 Miscellaneous Notes Spoke with this patient, she has been scheduled for phone visit for Nut with MB Call to patient to schedule with MB, had to [facility] asking for a call back to reschedule [...] she has been rescheduled for 07/[address] [place] [address]. Please call patient to schedule d/e with Dr. Bang. Patient no showed April visit which was her 2nd. Spoke to patient on the phone and let her know that someone would reach out for scheduling. Authorization for Testing Initiated. Company Name & Number Contacted for Auth: [facility] Name of Mental Health Director: Laxmi Hernandez Name of Procedure: GES Cpt Code: 66327 Diagnosis Code: E11.9, K30 Location of Procedure: Is Auth Required: Call Reference #: [id number] Pending Case #: Clinical Reviewer: Additional Info if given: Approved Case reference: [id number] Date Range for Approved Auth: 06/28/2023 - 08/12/2023 Test scheduled 06/30/2023, last dose of Trulicty was 06/19/2023. Insurance verification - Kareen @ [phone] called and given approval #. Called pt. [...] 2 diabetes mellitus without complication, unspecified whether fdc insulin use (HCC) I have recommended proceeding [...] rreview was performed by myself. Initial New [facility] surgical patient Navigation & Financial Counseling Discussion [...] [] YES [] NO PRIMARY INSURANCE: Payor: [facility] MEDICARE / Plan: [facility] MEDICARE ADVANTAGE [id number] / Product Type: Medicare HMO / BENEFIT [...] 1) Scheduled at new pt surgeon visit: Patient Centered Care Specialist (RD) for a Nutrition Assessment (BNA) and [...] and after surgery. documented in this encounter [facility] 08-10-2023 History of Present illness Narrative ENDOSCOPY ORDERS To be scheduled with: Dr. Faulkner Patient is: Pre-op/Pre-Bariatric Surgery CPT code: EGD with biopsy- CPT 56815 Diagnosis: GERD- K21.9 If pre-op, Diet & [...] for call back. documented in this encounter [facility] 08-10-2023 History of Present illness Narrative ENDOSCOPY ORDERS To be scheduled with: Dr. Faulkner Patient is: Pre-op/Pre-Bariatric Surgery CPT code: EGD with biopsy- CPT 94495 Diagnosis: GERD- K21.9 If pre-op, Diet & [...] 12:00 [facility] printed documented in this encounter [facility] 08-08-2023 Note Addended by: BERNADINE JACKSON on: 08/08/2023 02:15 PM Modules accepted: Orders [facility] 08-08-2023 Note Addended by: MEAGAN BINGHAM on: 08/08/2023 02:10 PM Modules accepted: [facility] 08-08-2023 Telephone encounter Note Call to patient to schedule with MB, had to lv asking for a call back to reschedule [facility] 08-08-2023 Miscellaneous Notes Call to patient [...] she has been rescheduled for 07/[address] [place] [address] Bang. Please call patient to schedule d/e with Dr. Bang. Patient no showed April visit which was her 2nd. Spoke to patient on the phone and let her know that someone would reach out for scheduling. Authorization for Testing Initiated. Company Name & Number Contacted for Auth: [facility] Name of Mental Health Director: Laxmi Hernandez Name of Procedure: GES Cpt Code: 16523 Diagnosis Code: E11.9, K30 Location of Procedure: Is Auth Required: Call Reference #: [id number] Pending Case #: Clinical Reviewer: Additional Info if given: Approved Case reference: [id number] Date Range for Approved Auth: 06/28/2023 - 08/12/2023 Test scheduled 06/30/2023, last dose of Trulicty was 06/19/2023. Insurance verification - Kareen @ [phone] called and given approval #. Called pt. [...] 2 diabetes mellitus without complication, unspecified whether fdc insulin use (HCC) I have recommended proceeding [...] rreview was performed by myself. Initial New [facility] surgical patient Navigation & Financial Counseling Discussion [...] INSURANCE: Payor: [employer] MEDICARE / Plan: [facility] MEDICARE ADVANTAGE 99541 / Product Type: Medicare HMO / BENEFIT [...] 1) Scheduled at new pt surgeon visit: Patient Centered Care Specialist (RD) for a Nutrition Assessment (BNA) and [...] and after surgery. documented in this encounter [facility] 08-08-2023 Note Addended by: BERNADINE JACKSON on: 08/08/2023 02:15 PM Modules accepted: Orders [facility] 08-08-2023 Note Addended by: BERNADINE JACKSON on: 08/08/2023 02:15 PM Modules accepted: Orders [facility] 08-08-2023 Note Addended by: BERNADINE JACKSON on: 08/08/2023 02:15 PM Modules accepted: Orders [facility] 08-08-2023 Note Addended by: BERNADINE JACKSON on: 08/08/2023 02:15 PM Modules accepted: Orders [facility] 08-08-2023 Telephone encounter Note Nicotine order signed. [facility] 08-08-2023 Note Addended by: MEAGAN BINGHAM on: 08/08/2023 02:10 PM Modules accepted: Orders [facility] 08-08-2023 Note Addended by: MEAGAN BINGHAM on: 08/08/2023 02:10 PM Modules accepted: Orders [facility] 08-08-2023 Note Addended by: MEAGAN BINGHAM on: 08/08/2023 02:10 PM Modules accepted: Orders [facility] 08-08-2023 Note Addended by: MEAGAN BINGHAM on: 08/08/2023 02:10 PM Modules accepted: Orders [facility] 08-08-2023 Telephone encounter Note Just spoke to patient. Can you call her to schedule follow up visit with MB? Thank you! [facility] 08-08-2023 Note [facility] SURGICAL WEIGHT LOSS MANAGEMENT PROGRAM PROGRESS NOTE FOLLOW UP Patient: Shawnee Mohr Date of : 1955 Service Date: 08/08/2023 DE Visit number: 3 of 3 Pre Program Weight Metrics Date of Initial Consultation:@FLOWLAST(8961)@ Initial Weight: @FLOWLAST([id number])@ Initial BMI: @FLOWLAST([id number])@ [place] Body Weight: @FLOWLAST([id number])@ Excess Body Weight: @FLOWLAST(211017722)@ Follow Up Weight Metrics Last Three Weights [...] home O2 Completed by: Gabrielle Foster MA [facility] 08-08-2023 History of Present illness Narrative [facility] [place] SURGICAL WEIGHT LOSS MANAGEMENT PROGRAM PROGRESS NOTE FOLLOW UP Patient: Shawnee Mohr Date of : 1955 Service Date: 08/08/2023 DE Visit number: 3 of 3 Pre Program Weight Metrics Date of Initial Consultation:@FLOWLAST(8961)@ Initial Weight: @FLOWLAST([id number])@ Initial BMI: @FLOWLAST([id number])@ [place] Body Weight: @FLOWLAST(650399119)@ Excess Body Weight: @FLOWLAST(550749334)@ Follow Up Weight Metrics Last Three Weights [...] Mohr will discuss protein goals with her stock broker Dr. Alexis. --Sleep apnea: CPAP compliant --GERD: [...] times daily. CHOLECALCIFEROL (VITAMIN D-3) 1.25 MG (06822 UT) CAPSULE Take 50,000 Units by mouth [...] listed in Epic. documented in this encounter [facility] 07-25-2023 Note [facility] SURGICAL WEIGHT LOSS MANAGEMENT PROGRAM PROGRESS NOTE FOLLOW UP Patient: Shawnee Mohr Date of : 1955 Service Date: 07/25/2023 DE Visit number: 2 of 3 Pre Program Weight Metrics Date of Initial Consultation:@FLOWLAST(8961)@ Initial Weight: @FLOWLAST([id number])@ Initial BMI: @FLOWLAST(140603416)@ [place] Body Weight: @FLOWLAST(586298929)@ Excess Body Weight: @FLOWLAST(455046452)@ Follow Up Weight Metrics Last Three Weights [...] home O2 Completed by: Gabrielle Foster MA [facility] 07-25-2023 History of Present illness Narrative [facility] SURGICAL WEIGHT LOSS MANAGEMENT PROGRAM PROGRESS NOTE FOLLOW UP Patient: Shawnee Mohr Date of : 1955 Service Date: 07/25/2023 DE Visit number: 2 of 3 Pre Program Weight Metrics Date of Initial Consultation:@FLOWLAST(8961)@ Initial Weight: @FLOWLAST([id number])@ Initial BMI: @FLOWLAST(371443164)@ [place] Body Weight: @FLOWLAST(760690555)@ Excess Body Weight: @FLOWLAST(275593086)@ Follow Up Weight Metrics Last Three Weights [...] Mohr will discuss protein goals with her stock broker Dr. Alexis. --Sleep apnea: CPAP compliant --GERD: [...] times daily. CHOLECALCIFEROL (VITAMIN D-3) 1.25 MG (30100 UT) CAPSULE Take 50,000 Units by mouth [...] listed in Epic. documented in this encounter [facility] [employer] 07-12-2023 Telephone encounter Note Got her, spoke with patient, she was confirming future appts. [facility] [employer] 07-11-2023 Telephone encounter Note Patient left me a VM, I think she is ret your call Tonja. [facility] 07-11-2023 Miscellaneous Notes Patient left me a VM, I think she is ret your call Tonja. 2nd voicemail asking for a call back for scheduling. Lvm asking patient to call us back to schedule with MB Please call patient to schedule bna fu with MB, thanks! Spoke with patient, she has been rescheduled for 07/[address] [place] [address] Bang. Please call patient to schedule d/e with Dr. Bang. Patient no showed April visit which was her 2nd. Spoke to patient on the phone and let her know that someone would reach out for scheduling. Authorization for Testing Initiated. Company Name & Number Contacted for Auth: [facility] Name of Mental Health Director: Laxmi Hernandez Name of Procedure: GES Cpt Code: 01219 Diagnosis Code: E11.9, K30 Location of Procedure: Is Auth Required: Call Reference #: [id number] Pending Case #: Clinical Reviewer: Additional Info if given: Approved Case reference: [id number] Date Range for Approved Auth: 06/28/2023 - 08/12/2023 Test scheduled 06/30/2023, last dose of Trulicty was 06/19/2023. Insurance verification - Kareen @ [phone] called and given approval #. Called pt. [...] 2 diabetes mellitus without complication, unspecified whether intermodal customer service insulin use (HCC) I have recommended proceeding [...] rreview was performed by myself. Initial New [facility] surgical patient Navigation & Financial Counseling Discussion [...] [] YES [] NO PRIMARY INSURANCE: Payor: [facility] MEDICARE / Plan: [facility] MEDICARE ADVANTAGE [id number] / Product Type: Medicare HMO / BENEFIT [...] 1) Scheduled at new pt surgeon visit: Patient Centered Care Specialist (RD) for a Nutrition Assessment (BNA) and [...] and after surgery. documented in this encounter [facility] 07-08-2023 Telephone encounter Note 2nd voicemail asking for a call back for scheduling. [facility] 07-08-2023 Miscellaneous Notes 2nd voicemail asking for a call back for scheduling. Lvm asking patient to call us back to schedule with KASEY Please call patient to schedule bna fu with MB, thanks! Spoke with patient, she has been rescheduled for 07/[address] [place] [address] Bang. Please call patient to schedule d/e with Dr. Bang. Patient no showed April visit which was her 2nd. Spoke to patient on the phone and let her know that someone would reach out for scheduling. Authorization for Testing Initiated. Company Name & Number Contacted for Auth: [facility] Name of Mental Health Director: Laxmi Hernandez Name of Procedure: GES Cpt Code: 75436 Diagnosis Code: E11.9, K30 Location of Procedure: Is Auth Required: Call Reference #: [id number] Pending Case #: Clinical Reviewer: Additional Info if given: Approved Case reference: [id number] Date Range for Approved Auth: 06/28/2023 - 08/12/2023 Test scheduled 06/30/2023, last dose of Trulicty was 06/19/2023. Insurance verification - Kareen @ [phone] called and given approval #. Called pt. [...] 2 diabetes mellitus without complication, unspecified whether intermodal customer service insulin use (HCC) I have recommended proceeding [...] rreview was performed by myself. Initial New [facility] surgical patient Navigation & Financial Counseling Discussion [...] [] YES [] NO PRIMARY INSURANCE: Payor: [facility] MEDICARE / Plan: [facility] MEDICARE ADVANTAGE 13812 / Product Type: Medicare HMO / BENEFIT [...] 1) Scheduled at new pt surgeon visit: Patient Centered Care Specialist (RD) for a Nutrition Assessment (BNA) and [...] and after surgery. documented in this encounter [facility] 07-06-2023 Telephone encounter Note Lvm asking patient to call us back to schedule with KASEY [facility] 07-06-2023 Miscellaneous Notes Lvm asking patient to call us back to schedule with KASEY Please call patient to schedule bna fu with MB, thanks! Spoke with patient, she has been rescheduled for 07/[address] [place] [address] Bang. Please call patient to schedule d/e with Dr. Bang. Patient no showed April visit which was her 2nd. Spoke to patient on the phone and let her know that someone would reach out for scheduling. Authorization for Testing Initiated. Company Name & Number Contacted for Auth: [facility] Name of Mental Health Director: Fransicoangela Mary Name of Procedure: GES Cpt Code: 63134 Diagnosis Code: E11.9, K30 Location of Procedure: Is Auth Required: Call Reference #: [id number] Pending Case #: Clinical Reviewer: Additional Info if given: Approved Case reference: [id number] Date Range for Approved Auth: 06/28/2023 - 08/12/2023 Test scheduled 06/30/2023, last dose of Trulicty was 06/19/2023. Insurance verification - Kareen @ [phone] called and given approval #. Called pt. [...] 2 diabetes mellitus without complication, unspecified whether fdc insulin use (HCC) I have recommended proceeding [...] rreview was performed by myself. Initial New [facility] surgical patient Navigation & Financial Counseling Discussion [...] INSURANCE: Payor: [employer] MEDICARE / Plan: [facility] MEDICARE ADVANTAGE [id number] / Product Type: Medicare HMO / BENEFIT [...] 1) Scheduled at new pt surgeon visit: Patient Centered Care Specialist (RD) for a Nutrition Assessment (BNA) and [...] and after surgery. documented in this encounter [facility] 07-05-2023 Telephone encounter Note Please call patient to schedule bna fu with KASEY, thanks! [facility] 07-05-2023 Miscellaneous Notes Please call patient to schedule bna fu with KASEY, thanks! Spoke with patient, she has been rescheduled for 07/[address] [place] [address] Bang. Please call patient to schedule d/e with Dr. Bang. Patient no showed April visit which was her 2nd. Spoke to patient on the phone and let her know that someone would reach out for scheduling. Authorization for Testing Initiated. Company Name & Number Contacted for Auth: [facility] Name of Mental Health Director: Laxmi Hernandez Name of Procedure: GES Cpt Code: 06525 Diagnosis Code: E11.9, K30 Location of Procedure: Is Auth Required: Call Reference #: [id number] Pending Case #: Clinical Reviewer: Additional Info if given: Approved Case reference: [id number] Date Range for Approved Auth: 06/28/2023 - 08/12/2023 Test scheduled 06/30/2023, last dose of Trulicty was 06/19/2023. Insurance verification - Kareen @ [phone] called and given approval #. Called pt. [...] 2 diabetes mellitus without complication, unspecified whether fdc insulin use (HCC) I have recommended proceeding [...] rreview was performed by myself. Initial New [facility] surgical patient Navigation & Financial Counseling Discussion [...] [] YES [] NO PRIMARY INSURANCE: Payor: [facility] MEDICARE / Plan: [facility] MEDICARE ADVANTAGE 65624 / Product Type: Medicare HMO / BENEFIT [...] 1) Scheduled at new pt surgeon visit: Patient Centered Care Specialist (RD) for a Nutrition Assessment (BNA) and [...] and after surgery. documented in this encounter [facility] 07-01-2023 Telephone encounter Note Spoke with patient, she has been rescheduled for 07/[address] [place] [address] Bang. [facility] 07-01-2023 Miscellaneous Notes Spoke with patient, she has been rescheduled for 07/[address] [place] [address] Bang. Please call patient to schedule d/e with Dr. Bang. Patient no showed April visit which was her 2nd. Spoke to patient on the phone and let her know that someone would reach out for scheduling. Authorization for Testing Initiated. Company Name & Number Contacted for Auth: [facility] Name of Mental Health Director: Laxmi Hernandez Name of Procedure: GES Cpt Code: 60225 Diagnosis Code: E11.9, K30 Location of Procedure: Is Auth Required: Call Reference #: [id number] Pending Case #: Clinical Reviewer: Additional Info if given: Approved Case reference: [id number] Date Range for Approved Auth: 06/28/2023 - 08/12/2023 Test scheduled 06/30/2023, last dose of Trulicty was 06/19/2023. Insurance verification - Kareen @ [phone] called and given approval #. Called pt. [...] 2 diabetes mellitus without complication, unspecified whether fdc insulin use (HCC) I have recommended proceeding [...] rreview was performed by myself. Initial [facility] surgical patient Navigation & Financial Counseling [...] [] YES [] NO PRIMARY INSURANCE: Payor: [facility] MEDICARE / Plan: [facility] MEDICARE ADVANTAGE [id number] / Product Type: Medicare HMO / BENEFIT [...] 1) Scheduled at new pt surgeon visit: Patient Centered Care Specialist (RD) for a Nutrition Assessment (BNA) and [...] and after surgery. documented in this encounter [facility] 07-01-2023 Telephone encounter Note Please call patient to schedule d/e with Dr. Bang. Patient no showed April visit which was her 2nd. Spoke to patient on the phone and let her know that someone would reach out for scheduling. [facility] 06-30-2023 Telephone encounter Note Pt. Calling to confirm appt. for 06.30.23 at 8:00am [facility] 06-30-2023 Miscellaneous Notes Pt. Calling to confirm appt. for 06.30.23 at 8:00am documented in this encounter [facility] 06-28-2023 Telephone encounter Note Authorization for Testing Initiated. Company Name & Number Contacted for Auth: [facility] Name of Mental Health Director: Laxmi Hernandez Name of Procedure: GES Cpt Code: 39928 Diagnosis Code: E11.9, K30 Location of Procedure: Is Auth Required: Call Reference #: [id number] Pending Case #: Clinical Reviewer: Additional Info if given: Approved Case reference: [id number] Date Range for Approved Auth: 06/28/2023 - 08/12/2023 Test scheduled 06/30/2023, last dose of Trulicty was 06/19/2023. Insurance verification - Kareen @ [phone] called and given approval #. [facility] [employer] 06-28-2023 Miscellaneous Notes Authorization for Testing Initiated. Company Name & Number Contacted for Auth: [facility] Name of Mental Health Director: Laxmi Hernandez Name of Procedure: GES Cpt Code: 14799 Diagnosis Code: E11.9, K30 Location of Procedure: Is Auth Required: Call Reference #: [id number] Pending Case #: Clinical Reviewer: Additional Info if given: Approved Case reference: [id number] Date Range for Approved Auth: 06/28/2023 - 08/12/2023 Test scheduled 06/30/2023, last dose of Trulicty was 06/19/2023. Insurance verification - Kareen @ [phone] called and given approval #. Called pt. [...] 2 diabetes mellitus without complication, unspecified whether fdc insulin use (HCC) I have recommended proceeding [...] rreview was performed by myself. Initial New [facility] surgical patient Navigation & Financial Counseling Discussion [...] INSURANCE: Payor: [employer] MEDICARE / Plan: [facility] MEDICARE ADVANTAGE 70036 / Product Type: Medicare HMO / BENEFIT [...] 1) Scheduled at new pt surgeon visit: Patient Centered Care Specialist (RD) for a Nutrition Assessment (BNA) and [...] and after surgery. documented in this encounter [facility] 06-27-2023 Telephone encounter Note Called pt. Reviewed EGD findings. Discussed order for GES. To hold GLP1 dose for 7 days prior to test. Pt verbalized understanding. Given phone number for Central Scheduling. [facility] 06-27-2023 Miscellaneous Notes Called pt. Reviewed [...] 2 diabetes mellitus without complication, unspecified whether fdc insulin use (HCC) I have recommended proceeding [...] rreview was performed by myself. Initial New [facility] surgical patient Navigation & Financial Counseling Discussion [...] INSURANCE: Payor: [employer] MEDICARE / Plan: [facility] MEDICARE ADVANTAGE [id number] / Product Type: Medicare HMO / BENEFIT [...] 1) Scheduled at new pt surgeon visit: Patient Centered Care Specialist (RD) for a Nutrition Assessment (BNA) and [...] and after surgery. documented in this encounter [facility] 06-23-2023 Note Discharged to home . Accompanied by Linda marquez . AVS and education reviewed with patient and Linda, both verbalized understanding. Mode of transportation private vehicle Belongings sent. [facility] 06-23-2023 Note Addended by: BERNADINE JACKSON on: 06/23/2023 10:09 AM Modules accepted: Orders [facility] 06-23-2023 Note Patient: Shawnee das Procedure Summary Date: 06/23/23 Room / Location: [facility] 3 / [facility] OR Anesthesia [...] once all PACU criteria has been met. [facility] 06-23-2023 Note Patient: Shawnee das Procedure Summary Date: 06/23/23 Room / Location: [facility] Anesthesia Start: 946 Anesthesia Stop: [...] opportunity for questions and acknowledgement of understanding. [facility] 06-23-2023 Note Formatting of this n ote might be different from the original. Discharged to home . Accompanied by Linda marquez . AVS and education reviewed with patient and Linda, both verbalized understanding. Mode of transportation private vehicle Belongings sent. [facility] 06-23-2023 Miscellaneous Notes Discharged to home [...] blood sugar 116 documented in this encounter [facility] 06-23-2023 Note Formatting of this n ote might be different from the original. POC blood glucose 114 in pacu [facility] 06-23-2023 Note Addended by: BERNADINE JACKSON on: 06/23/2023 10:09 AM Modules accepted: Orders [facility] 06-23-2023 Note Addended by: BERNADINE JACKSON on: 06/23/2023 10:09 AM Modules accepted: Orders [facility] 06-23-2023 Note Addended by: BERNADINE JACKSON on: 06/23/2023 10:09 AM Modules accepted: Orders [facility] 06-23-2023 Note Addended by: BERNADINE JACKSON on: 06/23/2023 10:09 AM Modules accepted: Orders [facility] 06-23-2023 Note Addended by: BERNADINE JACKSON on: 06/23/2023 10:09 AM Modules accepted: Orders [facility] 06-23-2023 Note Addended by: BERNADINE JACKSON on: 06/23/2023 10:09 AM Modules accepted: Orders T [facility] 06-23-2023 Note Addended by: BERNADINE JACKSON on: 06/23/2023 10:09 AM Modules accepted: Orders T [facility] 06-23-2023 Note Addended by: BERNADINE JACKSON on: 06/23/2023 10:09 AM Modules accepted: Orders T [facility] 06-23-2023 Note Addended by: BERNADINE JACKSON on: 06/23/2023 10:09 AM Modules accepted: Orders T [facility] 06-23-2023 Note Addended by: BERNADINE JACKSON on: 06/23/2023 10:09 AM Modules accepted: Orders [facility] 06-23-2023 Note Addended by: BERNADINE JACKSON on: 06/23/2023 10:09 AM Modules accepted: Orders [facility] [employer] 06-23-2023 Note Addended by: BERNADINE JACKSON on: 06/23/2023 10:09 AM Modules accepted: Orders T [facility] 06-23-2023 Hospital Discharge instructions Clari Mei [...] OR CALL 911 documented in this encounter [facility] 06-23-2023 Telephone encounter Note Endoscopic Findings: [...] time under anesthesia. GES ordered per TB. [facility] 06-23-2023 Note Endoscopy History an d [...] Past Surgical History: Procedure Laterality Date [facility] [facility] 2018 [place] TOTAL KNEE ARTHROPLASTY Right [place] [facility] [...] understanding and willingness to proceed with plan. [facility] 06-23-2023 Note Formatting of this n [...] work-up as noted in office visit note. [facility] 06-23-2023 History and physical note Images [...] Past Surgical History: Procedure Laterality Date CHOLECYSTECTOMY [place] [facility] HYSTERECTOMY 2018 [place] TOTAL KNEE ARTHROPLASTY Right [place] [facility] [...] understanding and willingness to proceed with plan. [employer] Work Phone: 06-23-2023 History and physical note [...] Past Surgical History: Procedure Laterality Date CHOLECYSTECTOMY [place] [facility] HYSTERECTOMY 2018 [place] TOTAL KNEE ARTHROPLASTY Right [place] [facility] [...] proceed with plan. documented in this encounter [facility] [employer] 06-23-2023 Note Formatting of this n ote might be different from the original. 0942 blood sugar 116 [facility] [employer] 06-22-2023 Note Patient: Shawnee das Procedure Information Date/Time: 06/23/23 1100 Procedure: EGD WITH BIOPSY Location: [facility] / [facility] OR Surgeons: [...] found for this or any previous visit. [facility] 05-12-2023 History of Present illness Narrative [...] Past Surgical History: Procedure Laterality Date CHOLECYSTECTOMY [place] [facility] HYSTERE[facility]OMY 2018 [place] TOTAL KNEE ARTHROPLASTY Right [place] [facility] [...] times daily. CHOLECALCIFEROL (VITAMIN D-3) 1.25 MG (52945 UT) CAPSULE Take 50,000 Units by mouth [...] & Exercise Visit: Initial Weight: Initial BMI: [place] Body Weight: Excess Body Weight: Physical Examination: [...] DIET HISTORY FORM with patient (located in [facility]) I reviewed all of the patient's medications [...] Mohr will discuss protein goals with her stock broker Dr. Alexis. --Sleep apnea: CPAP compliant --GERD: [...] 05/12/2023 2:07 PM documented in this encounter [facility] 05-12-2023 History of Present illness Narrative [...] Past Surgical History: Procedure Laterality Date CHOLECYSTECTOMY [place] [facility] HYSTERECTOMY 2018 [place] TOTAL KNEE ARTHROPLASTY Right [place] [facility] [...] times daily. CHOLECALCIFEROL (VITAMIN D-3) 1.25 MG (12420 UT) CAPSULE Take 50,000 Units by mouth [...] & Exercise Visit: Initial Weight: Initial BMI: [place] Body Weight: Excess Body Weight: Physical Examination: [...] DIET HISTORY FORM with patient (located in [facility]) I reviewed all of the patient's medications [...] Mohr will discuss protein goals with her stock broker Dr. Alexis. --Sleep apnea: CPAP compliant --GERD: [...] 05/12/2023 2:07 PM documented in this encounter [facility] 03-02-2023 Telephone encounter Note Orders mailed [facility] 03-02-2023 Miscellaneous Notes Orders mailed Addended [...] 2 diabetes mellitus without complication, unspecified whether intermodal customer service insulin use (HCC) I have recommended proceeding [...] rreview was performed by myself. Initial New [facility] surgical patient Navigation & Financial Counseling Discussion [...] [] YES [] NO PRIMARY INSURANCE: Payor: [facility] MED[facility] / Plan: [facility] MEDICARE ADVANTAGE [id number] / Product Type: Medicare HMO / BENEFIT [...] 1) Scheduled at new pt surgeon visit: Patient Centered Care Specialist (RD) for a Nutrition Assessment (BNA) and [...] and after surgery. documented in this encounter [facility] [employer] 02-28-2023 Note Addended by: BERNADINE JACKSON on: 02/28/2023 08:37 AM Modules accepted: Orders [facility] [employer] 02-28-2023 Note Addended by: BERNADINE JACKSON on: 02/28/2023 08:37 AM Modules accepted: Orders [facility] 02-28-2023 Note Addended by: BERNADINE JACKSON on: 02/28/2023 08:37 AM Modules accepted: Orders [facility] [employer] 02-28-2023 Note Addended by: BERNADINE JACKSON on: 02/28/2023 08:37 AM Modules accepted: Orders [facility] [employer] 02-28-2023 Note Addended by: BERNADINE JACKSON on: 02/28/2023 08:37 AM Modules accepted: Orders [facility] 02-28-2023 Note Addended by: BERNADINE JACKSON on: 02/28/2023 08:37 AM Modules accepted: Orders [facility] 02-28-2023 Note Addended by: BERNADINE JACKSON on: 02/28/2023 08:37 AM Modules accepted: Orders [facility] 02-28-2023 Note Addended by: BERNADINE JACKSON on: 02/28/2023 08:37 AM Modules accepted: Orders [facility] 02-28-2023 Note Addended by: BERNADINE JACKSON on: 02/28/2023 08:37 AM Modules accepted: Orders T [facility] 02-28-2023 Note Addended by: BERNADINE JACKSON on: 02/28/2023 08:37 AM Modules accepted: Orders [facility] 02-28-2023 Note Addended by: BERNADINE JACKSON on: 02/28/2023 08:37 AM Modules accepted: Orders T [facility] 02-28-2023 Note Addended by: BERNADINE JACKSON on: 02/28/2023 08:37 AM Modules accepted: Orders [facility] 02-28-2023 Note Addended by: BERNADINE JACKSON on: 02/28/2023 08:37 AM Modules accepted: Orders [facility] 02-28-2023 Note Addended by: BERNADINE JACKSON on: 02/28/2023 08:37 AM Modules accepted: Orders [facility] 02-28-2023 Miscellaneous Notes Addended by: BERNADINE [...] 2 diabetes mellitus without complication, unspecified whether intermodal customer service insulin use (HCC) I have recommended proceeding [...] rreview was performed by myself. Initial New [facility] surgical patient Navigation & Financial Counseling Discussion [...] INSURANCE: Payor: [employer] MEDICARE / Plan: [facility] MEDICARE ADVANTAGE [id number] / Product Type: Medicare HMO / BENEFIT [...] 1) Scheduled at new pt surgeon visit: Patient Centered Care Specialist (RD) for a Nutrition Assessment (BNA) and [...] and after surgery. documented in this encounter [facility] 02-28-2023 Telephone encounter Note Orders signed. Pt did have EGD 09/16. Will discuss need to repeat with TB. [facility] 02-26-2023 Note Addended by: ALLEGRA PALOMARES on: 02/26/2023 12:56 PM Modules accepted: Orders [facility] 02-26-2023 Note Addended by: ALLEGRA PALOMARES on: 02/26/2023 12:56 PM Modules accepted: Orders [facility] 02-26-2023 Note Addended by: ALLEGRA PALOMARES on: 02/26/2023 12:56 PM Modules accepted: Orders [facility] 02-26-2023 Note Addended by: ALLEGRA PALOMARES on: 02/26/2023 12:56 PM Modules accepted: Orders [facility] 02-26-2023 Note Addended by: ALLEGRA PALOMARES on: 02/26/2023 12:56 PM Modules accepted: Orders [facility] 02-26-2023 Note Addended by: ALLEGRA PALOMARES on: 02/26/2023 12:56 PM Modules accepted: Orders [facility] 02-26-2023 Note Addended by: ALLEGRA PALOMARES on: 02/26/2023 12:56 PM Modules accepted: Orders [facility] 02-26-2023 Note Addended by: ALLEGRA PALOMARES on: 02/26/2023 12:56 PM Modules accepted: Orders [facility] 02-26-2023 Note Addended by: ALLEGRA PALOMARES on: 02/26/2023 12:56 PM Modules accepted: Orders [facility] 02-26-2023 Note Addended by: ALLEGRA PALOMARES on: 02/26/2023 12:56 PM Modules accepted: Orders [facility] 02-26-2023 Note Addended by: ALLEGRA PALOMARES on: 02/26/2023 12:56 PM Modules accepted: Orders [facility] 02-26-2023 Note Addended by: ALLEGRA PALOMARES on: 02/26/2023 12:56 PM Modules accepted: Orders [facility] 02-26-2023 Note Addended by: ALLEGRA PALOMARES on: 02/26/2023 12:56 PM Modules accepted: Orders [facility] 02-26-2023 Note Addended by: ALLEGRA PALOMARES on: 02/26/2023 12:56 PM Modules accepted: Orders [facility] 02-26-2023 Note Addended by: ALLEGRA PALOMARES on: 02/26/2023 12:56 PM Modules accepted: Orders [facility] 02-26-2023 Miscellaneous Notes Addended by: ALLEGRA PALOMARES on: 02/26/2023 12:56 PM Modules accepted: Orders Orders pended, Pre-op checklist scanned, EGD order sent to [facility] Encounter Diagnoses Name Primary? BENTLEY (obstructive sleep apnea) Yes Primary hypertension Gastroesophageal reflux disease without esophagitis Type 2 diabetes mellitus without complication, unspecified whether fdc insulin use (HCC) I have recommended proceeding [...] rreview was performed by myself. Initial New [facility] surgical patient Navigation & Financial Counseling Discussion [...] [] YES [] NO PRIMARY INSURANCE: Payor: [facility] MEDIC[facility] / Plan: [facility] MEDICARE ADVANTAGE [id number] / Product Type: Medicare HMO / BENEFIT [...] 1) Scheduled at new pt surgeon visit: Patient Centered Care Specialist (RD) for a Nutrition Assessment (BNA) and [...] and after surgery. documented in this encounter [facility] [employer] 02-26-2023 History of Present illness Narrative ENDOSCOPY ORDERS To be scheduled with: Dr. Faulkner Patient is: Pre-op/Pre-Bariatric Surgery CPT code: EGD with biopsy- CPT 55209 Diagnosis: Dyspepsia- K30 If pre-op, Diet & Exercise Requirements are, and started/scheduled on 04/08/2023: 3 months Home O2: No Known Difficult Intubation: No Pt scheduled [facility] 06/23/23 at 12:30 printed documented in this encounter [facility] [employer] 02-26-2023 Telephone encounter Note Orders pended, Pre-op checklist scanned, [facility] order [facility] to [facility] 02-26-2023 Telephone encounter Note PLAN Encounter Diagnoses Name Primary? BENTLEY (obstructive sleep apnea) Yes Primary hypertension Gastroesophageal reflux disease without esophagitis Type 2 diabetes mellitus without complication, unspecified whether intermodal customer service insulin use (HCC) I have recommended proceeding [...] full chart rreview was performed by myself. [facility] 02-18-2023 History of Present illness Narrative [facility] BARIATRIC NUTRITION ASSESSMENT [...] Estephania Winter RD documented in this encounter [facility] 02-18-2023 History of Present illness Narrative [facility] BARIATRIC NUTRITION ASSESSMENT [...] Estephania Winter RD documented in this encounter [facility] 02-08-2023 Note Initial New BCC surg [...] [] YES [] NO PRIMARY INSURANCE: Payor: [facility] MEDICARE / Plan: [facility] MEDICARE ADVANTAGE [id number] / Product Type: Medicare HMO / BENEFIT [...] 1) Scheduled at new pt surgeon visit: Patient Centered Care Specialist (RD) for a Nutrition Assessment (BNA) and [...] and lab/testing results before and after surgery. [facility] 02-08-2023 Telephone encounter Note Initial New [facility] surgical patient Navigation & Financial Counseling Discussion [...] INSURANCE: Payor: [employer] MEDICARE / Plan: [facility] MEDICARE ADVANTAGE [id number] / Product Type: Medicare HMO / BENEFIT [...] 1) Scheduled at new pt surgeon visit: Patient Centered Care Specialist (RD) for a Nutrition Assessment (BNA) and [...] and lab/testing results before and after surgery. [facility] 02-08-2023 Note BARIATRIC AND METABO LIC SURGERY [facility] INITIAL EVALUATION - HISTORY [...] patient stands Height: 5' 0.75 (154.3 cm) ([facility] HGT CHK) tall with a weight of [...] Past Surgical History: Procedure Laterality Date CHOLE[place]ST[facility]OM[place] [facility] HYSTERECTOM[facility] 2018 [place] TOTAL KNEE ARTHROPLASTY [place] [facility] [...] times daily. CHOLECALCIFEROL (VITAMIN D-3) 1.25 MG (41151 UT) CAPSULE Take 50,000 Units by mouth [...] BP (!) 1 (more content not included)... [facility] 04-21-2021 Note HNO ID: [id number] Author: Lebron Downing Service: ? Author Type: [...] - Type 2 diabetes, uncontrolled, with neuropathy ([facility]) Dr. Reyna - Vitamin D [...] ALLERGIES Allergen Reactions - Gabapentin Intolerance - Zwfuhcw-Bgu-Bnd Red* Intolerance PAST SURGICAL HISTORY Procedure Laterality Date - PAST SURGICAL HISTORY OF 2006 bilateral knee replacements - REMOVAL GALLBLADDER 1994 laparoscopic cholecystectomy FAMILY HISTORY Problem Relation Age of On (more content not included)... [facility] 04-21-2021 Note HNO ID: [id number] Author: Silvia Bragg Service: ? Author Type: ? Type: Progress Notes Filed: 04/21/2021 1:51 PM Note Text: New patient. Visit for bilateral foot pain, bilateral bunion, and diabetic foot care/exam. Patient had xray prior to visit. Silvia Bragg [facility] 04-21-2021 Note HNO ID: [id number] Author: RT Turner(R) Service: Radiology Author Type: Calenderer Type: Progress Notes Filed: 04/21/2021 12:39 PM [...] RT Turner(R) April 21, 2021 12:38 PM [facility] documented in this encounter [facility]* Diagnosis Gastroesophageal reflux disease without esophagitis- Primary Esophageal reflux documented in this encounter [facility]* Diagnosis BENTLEY (obstructive sleep apnea) Obstructive sleep apnea (adult) (pediatric) Primary hypertension Unspecified essential hypertension Gastroesophageal reflux disease without esophagitis Esophageal reflux Type 2 diabetes mellitus without complication, unspecified whether fdc insulin use (HCC) Morbid obesity, unspecified obesity type (HCC) documented in this encounter [facility]* Diagnosis Ghosh's esophagus with dysplasia- Primary BENTLEY (obstructive sleep apnea) Obstructive sleep apnea (adult) (pediatric) Primary hypertension Unspecified essential hypertension Gastroesophageal reflux disease without esophagitis Esophageal reflux Type 2 diabetes mellitus without complication, unspecified whether fdc insulin use (HCC) Morbid obesity, unspecified obesity type (HCC) documented in this encounter [facility]* Diagnosis Ghosh's esophagus with dysplasia- Primary BENTLEY (obstructive sleep apnea) Obstructive sleep apnea (adult) (pediatric) Primary hypertension Unspecified essential hypertension Gastroesophageal reflux disease without esophagitis Esophageal reflux Type 2 diabetes mellitus without complication, unspecified whether intermodal customer service insulin use (HCC) Morbid obesity, unspecified obesity type (HCC) [facility]* Diagnosis Morbid obesity due to excess calories (HCC)- Primary BENTLEY (obstructive sleep apnea) Obstructive sleep apnea (adult) (pediatric) Hypertension, unspecified type Other specified diabetes mellitus with other specified complication, unspecified whether fdc insulin use (HCC) [facility] Diagnosis Dyspepsia Dyspepsia and other specified disorders of function of stomach documented in this encounter [facility]* Diagnosis Ghosh's esophagus with dysplasia- Primary BENTLEY (obstructive sleep apnea) Obstructive sleep apnea (adult) (pediatric) Primary hypertension Unspecified essential hypertension Gastroesophageal reflux disease without esophagitis Esophageal reflux Type 2 diabetes mellitus without complication, unspecified whether fdc insulin use (HCC) Morbid obesity, unspecified obesity type (HCC) Delayed gastric emptying Dyspepsia and other specified disorders of function of stomach documented in this encounter [facility]* Diagnosis Ghosh's esophagus with dysplasia- Primary BENTLEY (obstructive sleep apnea) Obstructive sleep apnea (adult) (pediatric) Primary hypertension Unspecified essential hypertension Gastroesophageal reflux disease without esophagitis Esophageal reflux Type 2 diabetes mellitus without complication, unspecified whether intermodal customer service insulin use (HCC) Morbid obesity, unspecified obesity type (HCC) Delayed gastric emptying Dyspepsia and other specified disorders of function of stomach documented in this encounter [facility]* Diagnosis Type 2 diabetes mellitus without complication, unspecified whether intermodal customer service insulin use (HCC) Delayed gastric emptying Dyspepsia and other specified disorders of function of stomach documented in this encounter [facility]* Diagnosis Ghosh's esophagus with dysplasia- Primary BENTLEY (obstructive sleep apnea) Obstructive sleep apnea (adult) (pediatric) Primary hypertension Unspecified essential hypertension Gastroesophageal reflux disease without esophagitis Esophageal reflux Type 2 diabetes mellitus without complication, unspecified whether fdc insulin use (HCC) Morbid obesity, unspecified obesity type (HCC) Delayed gastric emptying Dyspepsia and other specified disorders of function of stomach Type 2 diabetes mellitus without complication, unspecified whether intermodal customer service insulin use (HCC) Delayed gastric emptying Dyspepsia and other specified disorders of function of stomach documented in this encounter [facility]* Diagnosis Ghosh's esophagus with dysplasia- Primary BENTLEY (obstructive sleep apnea) Obstructive sleep apnea (adult) (pediatric) Primary hypertension Unspecified essential hypertension Gastroesophageal reflux disease without esophagitis Esophageal reflux Type 2 diabetes mellitus without complication, unspecified whether fdc insulin use (HCC) Morbid obesity, unspecified obesity type (HCC) Delayed gastric emptying Dyspepsia and other specified disorders of function of stomach Type 2 diabetes mellitus without complication, unspecified whether fdc insulin use (HCC) Delayed gastric emptying Dyspepsia and other specified disorders of function of stomach [facility]* Diagnosis Ghosh's esophagus with dysplasia- Primary BENTLEY (obstructive sleep apnea) Obstructive sleep apnea (adult) (pediatric) Primary hypertension Unspecified essential hypertension Gastroesophageal reflux disease without esophagitis Esophageal reflux Type 2 diabetes mellitus without complication, unspecified whether intermodal customer service insulin use (HCC) Morbid obesity, unspecified obesity type (HCC) Delayed gastric emptying Dyspepsia and other specified disorders of function of stomach Type 2 diabetes mellitus without complication, unspecified whether fdc insulin use (HCC) Delayed gastric emptying Dyspepsia and other specified disorders of function of stomach documented [facility]* Diagnosis Ghosh's esophagus with dysplasia- Primary BENTLEY (obstructive sleep apnea) Obstructive sleep apnea (adult) (pediatric) Primary hypertension Unspecified essential hypertension Gastroesophageal reflux disease without esophagitis Esophageal reflux Type 2 diabetes mellitus without complication, unspecified whether fdc insulin use (HCC) Morbid obesity, unspecified obesity type (HCC) Delayed gastric emptying Dyspepsia and other specified disorders of function of stomach Type 2 diabetes mellitus without complication, unspecified whether intermodal customer service insulin use (HCC) Delayed gastric emptying Dyspepsia and other specified disorders of function of stomach documented [facility]* Diagnosis Ghosh's esophagus with dysplasia- Primary BENTLEY (obstructive sleep apnea) Obstructive sleep apnea (adult) (pediatric) Primary hypertension Unspecified essential hypertension Gastroesophageal reflux disease without esophagitis Esophageal reflux Type 2 diabetes mellitus without complication, unspecified whether fdc insulin use (HCC) Morbid obesity, unspecified obesity type (HCC) Delayed gastric emptying Dyspepsia and other specified disorders of function of stomach Type 2 diabetes mellitus without complication, unspecified whether intermodal customer service insulin use (HCC) Delayed gastric emptying Dyspepsia and other specified disorders of function of stomach documented [facility]* Diagnosis Morbid obesity due to excess calories (HCC)- Primary Hypertension, unspecified type [facility]* Diagnosis Morbid obesity due to excess calories (HCC)- Primary Hypertension, unspecified type documented in this encounter [facility] note* Diagnosis Ghosh's esophagus with dysplasia- Primary BENTLEY (obstructive sleep apnea) Obstructive sleep apnea (adult) (pediatric) Primary hypertension Unspecified essential hypertension Gastroesophageal reflux disease without esophagitis Esophageal reflux Type 2 diabetes mellitus without complication, unspecified whether intermodal customer service insulin use (HCC) Morbid obesity, unspecified obesity type (HCC) Delayed gastric emptying Dyspepsia and other specified disorders of function of stomach Encounter for screening for tobacco use Pre-operative laboratory examination Pre-procedural laboratory examination Type 2 diabetes mellitus without complication, unspecified whether fdc insulin use (HCC) Delayed gastric emptying Dyspepsia and other specified disorders of function of stomach documented in this encounter [facility] note* Diagnosis Morbid obesity due to excess calories (HCC)- Primary Hypertension, unspecified type documented in this encounter [facility] note* Diagnosis Ghosh's esophagus with dysplasia- Primary BENTLEY (obstructive sleep apnea) Obstructive sleep apnea (adult) (pediatric) Primary hypertension Unspecified essential hypertension Gastroesophageal reflux disease without esophagitis Esophageal reflux Type 2 diabetes mellitus without complication, unspecified whether intermodal customer service insulin use (HCC) Morbid obesity, unspecified obesity type (HCC) Delayed gastric emptying Dyspepsia and other specified disorders of function of stomach Encounter for screening for tobacco use Pre-operative laboratory examination Pre-procedural laboratory examination Type 2 diabetes mellitus without complication, unspecified whether intermodal customer service insulin use (HCC) Delayed gastric emptying Dyspepsia and other specified disorders of function of stomach GERD (gastroesophageal reflux disease) Esophageal reflux documented in this encounter [facility] note* Diagnosis GERD (gastroesophageal reflux disease) Esophageal reflux documented in this encounter [facility] note* Diagnosis Gastroesophageal reflux disease without esophagitis- Primary Esophageal reflux documented in this encounter [facility] Discharge instructions* Attachments The following attachments cannot be sent through Care Everywhere. * Upper GI Endoscopy Discharge Instructions (Dominican) * Moderate Sedation in Adults Discharge Instructions (Dominican) [facility] (n[facility]ative)* Consultation (Routine) - Pending Review Specialty Diagnoses / Procedures Referred By Adrian davise Referred To Contact Pulmonary Disease / Pulmonology Diagnoses BENTLEY (obstructive sleep apnea) Primary hypertension Morbid obesity, unspecified obesity type (HCC) Procedures RI OFFICE/OUTPATIENT [facility] 60-74 MINUTES Bernadine Alvarado NP [address] [facility] [address] [place] [address] [facility] [address] [place] [address] Referral ID Status Reason Start Date Expiration Date Visits Requested Visits Authorized [id number] Pending Review Specialty Services Required 02/28/2023 02/28/2024 1 1 * Consultation (Elective) - Pending Review Specialty Diagnoses / Procedures Referred By Adrian t Referred To Contact Cardiology Diagnoses Primary hypertension Type 2 diabetes mellitus without complication, unspecified whether fdc insulin use (HCC) Morbid obesity, unspecified obesity type (HCC) Procedures RI OFFICE/OUTPATIENT NEW HIGH MDM 60-74 MINUTES Bernadine Alvarado NP [address] [place] [address] [address] [facility] [address] [place] [address] Referral ID Status Reason Start Date Expiration Date Visits Requested Visits Authorized [id number] Pending Review Specialty Services Required 02/28/2023 02/28/2024 1 1 [facility] Summary Purpose Family History No Family History Records FoundNo Family History Records FoundNo Family History Records FoundNo Family History Records FoundNo Family History Records Found Advance Directives No Advanced Directives Records FoundDocuments on File Type Date Recorded Patient Mental Health Director Expl anation Advance Directives and Living Will Power of [employer] Administrator Latest Code Status on File Code Status Date Activated Date Inactivated Comments Full Code 03/15/2019 10:23 AM 03/15/2019 3:07 PM Documents on File Type Date Recorded Patient Mental Health Director Expl anation Advance Directives and Living Will Power of [employer] Administrator Latest Code Status on File Code Status Date Activated Date Inactivated Comments Full Code 03/15/2019 10:23 AM 03/15/2019 3:07 PM Documents on File Type Date Recorded Patient Mental Health Director Expl anation ACP-Advance Directive ACP-Power of [employer] Administrator Documents on File Type Date Recorded Patient Mental Health Director Expl anation ACP-Advance Directive ACP-Power of [employer] Administrator Latest Code Status on File Code Status [...] PA [address] [facility] [address] [place] [address] [address] [place] [address] Status Reason Specialty Diagnoses / Procedures Referred By Contact Referred To Contact Not Required - [facility] Radiology Diagnoses Oropharyngeal dysphagia Procedures FL Modified Barium Swallow W Video Sajan Ramos MD [address] [facility] [place] [address] Status Reason Specialty Diagnoses / Procedures Re ferred By Contact Referred To Contact Not Required - [facility] Diagnoses Shortness of breath Procedures Full PFT Study With Bronchodilator Nash Cuellar MD [address] [place] [address] Status Reason Specialty Diagnoses / Procedures Re ferred By Contact Referred To Contact Manual Review Required - [facility] Radiology Diagnoses Renal cyst Procedures US RETROPERITONEAL LIMITED Jack Rosa MD [address] [place] [address] Status Reason Specialty Diagnoses / Procedures Referre d By Contact Referred To Contact Closed Radiology Diagnoses Cervical radiculopathy Procedures MRI CERVICAL SPINE WO CONTRAST Sajan Ramos MD [address] [place] [address] Status Reason Specialty Diagnoses / Procedures Referre d By Contact Referred To Contact Open Radiology Diagnoses Oropharyngeal dysphagia Procedures US HEAD NECK SOFT TISSUE THYROID Edgar Dennis, EMILY [address] [place] [address] Specialty Diagnoses / Procedures Referred By Contac t Referred To Contact Radiology Diagnoses Type 2 diabetes mellitus without complication, unspecified whether intermodal customer service insulin use (HCC) Delayed gastric emptying Procedures NM gastric emptying solid Bernadine Alvarado NP [address] [place] [address] Referral ID Status Reason Start Date Expiration Date V isits Requested Visits Authorized [id number] Pending Review 06/23/2023 12/20/2023 3 3 Specialty Diagnoses / Procedures Referred By Contac t Referred To Contact Pulmonary Disease / Pulmonology Diagnoses BENTLEY (obstructive sleep apnea) Primary hypertension Morbid obesity, unspecified obesity type (HCC) Procedures RI OFFICE/OUTPATIENT NEW HIGH MDM 60-74 MINUTES Bernadine Alvarado NP [address] [place] [address] [facility] [address] [place] [address] Referral ID Status Reason Start Date Expiration Date Visits Requested Visits Authorized [id number] Pending Review Specialty Services Required 02/28/2023 02/28/2024 1 1 Specialty Diagnoses / Procedures Referred By Contac t Referred To Contact Cardiology Diagnoses Primary hypertension Type 2 diabetes mellitus without complication, unspecified whether fdc insulin use (HCC) Morbid obesity, unspecified obesity type (HCC) Procedures RI OFFICE/OUTPATIENT NEW HIGH MDM 60-74 MINUTES Bernadine Alvarado NP [address] [place] [address] [facility] [address] [place] [address] Referral ID Status Reason Start Date Expiration Date V isits Requested Visits Authorized [id number] Closed Specialty Services Required 02/28/2023 02/28/2024 1 1 Referral ID Status Reason Start Date Expiration Date V isits Requested Visits Authorized [id number] Authorized 06/23/2023 12/20/2023 3 3 Assessments Diagnosis [...] History of Present Illness * Junito Walter, SENIOR SOUS CHEF - 02/25/2020 1:00 PM EDT [facility] Speech Language Pathology Shawnee Mohr 1955 [...] and dated to either of our locations: [facility] [address] [address] [place], [place] [address] Thank you for your referral. Signature: documented in this encounter* Vanna Mccollum, SENIOR SOUS CHEF - 03/04/2020 9:00 AM EDT [facility] Outpatient Speech Language Pathology Adult Daily Note Shawnee Mohr : 1955 Date: 03/04/2020 Visit Information: [employer] Medicare Total # of Visits Approved: (Medical necessity.) Total # of Visits to Date: 1 No Show: 0 Canceled Appointment: 0 Plan of care signed (Y/N): Faxed Certification Period: 02/25/2020-03/25/2020 Interventions used this date: Dysphagia Treatment and Instruction in Compensatory Strategies Subjective: Senior Care Goals: 1. Patient will tolerate least restrictive [...] *E-stim was recommended by evaluating therapist at [facility]. Will contact doctors's office. Patient reports having [...] Mccollum SLP - 03/06/2020 8:00 AM EDT [facility] Outpatient Speech Language Pathology Adult Daily Note Shawnee Mohr : 1955 Date: 03/06/2020 Visit Information: SENIOR SOUS CHEF Insurance Information: [facility] Medicare.[employer] Medicare Total # of Visits Approved: (Medical necessity.) Total # of Visits to Date: 2 No Show: 0 Canceled Appointment: 0 Plan of care signed (Y/N): Faxed Certification Period: 02/25/2020-03/25/2020 Interventions used this date: Dysphagia Treatment and Instruction in Compensatory Strategies Subjective: Senior Care Goals: 1. Patient will tolerate least restrictive [...] *E-stim was recommended by evaluating therapist at [facility]. Doctors's office was closed on Tuesday. Secretaries [...] Mccollum SLP - 03/20/2020 9:00 AM EDT [facility] Outpatient Speech Language Pathology Adult Daily Note Shawnee Mohr : 1955 Date: 03/20/2020 Visit Information: SENIOR SOUS CHEF Insurance Information: [facility] Medicare.[employer] Medicare Total # [...] recommended that she take medication with applesauce. Senior Care Goals: 1. Patient will tolerate least restrictive [...] *E-stim was recommended by evaluating therapist at [facility]. Doctors's office contacted again this date regarding [...] Name: Shawnee Mohr : 1955 Visit Information: SENIOR SOUS CHEF Insurance Information: [facility] [facility] Medicare. Total # of Visits [...] Name: Shawnee Mohr : 1955 Visit Information: SENIOR SOUS CHEF Insurance Information: [facility] Medicare. Total # of Visits Approved: (Medical necessity) Total # of Visits to Date: 3 No Show: 0 Canceled Appointment: 3 For today's appointment patient: Cancelled Reason given by patient: Conflicting appointment Follow-up needed: Pt has future appointments scheduled, no follow up needed Comments: Signature: documented in this encounter* Vanna Mccollum SLP - 04/01/2020 10:00 AM EDT [facility] Outpatient Speech Language Pathology Adult Daily Note Shawnee Shabazz Onur : 1955 Date: 04/01/2020 Visit Information: SENIOR SOUS CHEF Insurance Information: [employer] Medicare.[facility] Medicare Total # of Visits Approved: (Medical necessity.) Total # of Visits to Date: 4 No Show: 0 Canceled Appointment: 3 Plan of care signed (Y/N): Faxed Certification Period: 02/25/2020-03/25/2020 Interventions used this date: Dysphagia Treatment and Instruction in Compensatory Strategies Subjective: Patient reports improved swallowing. Some difficulty with small pills. It is recommended that she take medication with applesauce. Scratcher Goals: 1. Patient will tolerate least restrictive [...] with 90% accuracy in combination with the SENIOR SOUS CHEF using JEAN to the suprahyoidal musculature to [...] Name: Shawnee Mohr : 1955 Visit Information: SENIOR SOUS CHEF Insurance Information: [facility] Medicare. Total # of Visits [...] Name: Shawnee Mohr : 1955 Visit Information: SENIOR SOUS CHEF Insurance Information: [facility] Medicare. Total # of Visits Approved: (Medical necessity.) Total # of Visits to Date: 6 No Show: 0 Canceled Appointment: 5 For today's appointment patient: Cancelled Reason given by patient: Patient ill Follow-up needed: Pt has future appointments scheduled, no follow up needed Comments: Signature: documented in this encounter* Vanna Mccollum SLP - 04/15/2020 1:00 PM EDT [facility] Outpatient Speech Language Pathology Adult Daily Note Shawnee Mohr : 1955 Date: 04/15/2020 Visit Information: SENIOR SOUS CHEF Insurance Information: [employer] Medicare.[employer] Medicare Total # of Visits to Date: 7 No Show: 0 Canceled Appointment: 4 Note cancel appointment revised. Plan of care signed (Y/N): Faxed Certification Period: 02/25/2020-03/25/2020 Interventions used this date: Dysphagia Treatment and Instruction in Compensatory Strategies Subjective: Patient reports improved swallowing. Some difficulty with small pills. It is recommended that she take medication with applesauce. Scratcher Goals: 1. Patient will tolerate least restrictive [...] with 90% accuracy in combination with the SENIOR SOUS CHEF using JEAN to the suprahyoidal musculature to [...] Mccollum SLP - 04/24/2020 11:00 AM EDT [facility] Outpatient Speech Language Pathology Adult Daily Note Shawnee Mohr : 1955 Date: 04/24/2020 Visit Information: SENIOR SOUS CHEF Insurance Information: [facility] Medicare.[employer] Medicare Total # [...] recommended that she take medication with applesauce. Senior Care Goals: 1. Patient will tolerate least restrictive [...] with 90% accuracy in combination with the SENIOR SOUS CHEF using JEAN to the suprahyoidal musculature to facilitate muscle reeducation and strength to establish a more effective swallow. Patient completed the [place] 10 x. Ilsa 10x. *Recommend that the Patient see an [...] Mccollum SLP - 04/29/2020 4:00 PM EDT [facility] Outpatient Speech Language Pathology Adult Daily Note Shawnee Mohr : 1955 Date: 04/29/2020 Visit Information: SENIOR SOUS CHEF Insurance Information: [facility] Medicare.[facility] Medicare Total # of Visits Approved: (medical necessity.) Total # of Visits to Date: 10 No Show: 0 Canceled Appointment: 4 Plan of care signed (Y/N): Faxed Certification Period: 04/26/2020-05/26/2020 Interventions used this date: Dysphagia Treatment and Instruction in Compensatory Strategies Subjective: Patient reports improved swallowing. Some difficulty with small pills. It is recommended that she take medication with applesauce. Scratcher Goals: 1. Patient will tolerate least restrictive [...] complete pharyngeal strengthening exercises (such as the Lias, Effortful swallow, etc)with 90% accuracy in order [...] with 90% accuracy in combination with the SENIOR SOUS CHEF using JEAN to the suprahyoidal musculature to [...] Mccollum SLP - 05/01/2020 11:00 AM EDT [facility] Outpatient Speech Language Pathology Adult Daily Note Shawnee Mele Mohr : 1955 Date: 05/01/2020 Visit Information: SENIOR SOUS CHEF Insurance Information: [facility] Medicare.[facility] Medicare Total # of Visits Approved: (Medical necessity.) Total # of Visits to Date: 11 No Show: 0 Canceled Appointment: 4 Plan of care signed (Y/N): Faxed Certification Period: 04/26/2020-05/26/2020 Interventions used this date: Dysphagia Treatment and Instruction in Compensatory Strategies Subjective: Patient reports vocal quality is much better and that she has an occasional throat clear. Scratcher Goals: 1. Patient will tolerate least restrictive [...] with 90% accuracy in combination with the SENIOR SOUS CHEF using JEAN to the suprahyoidal musculature to [...] Mccollum SLP - 05/06/2020 9:00 AM EDT [][facility] [address] [address] [place] [address] [place] [address] [facility] Outpatient Speech Language Pathology Adult Discharge [...] with 90% accuracy in combination with the SENIOR SOUS CHEF using JEAN to the suprahyoidal musculature to [...] Initial:5:CJ Electronically signed by: Vanna Mccollum M.A., CCC-SENIOR SOUS CHEF Date: 05/06/2020, 4:21 PM * Vanna Mccollum SLP - 05/06/2020 9:00 AM EDT [facility] Speech Language Pathology Adult Daily Note Shawnee Mohr : 1955 Date: 05/06/2020 Visit Information: SENIOR SOUS CHEF Insurance Information: [facility] Medicare.[employer] Medicare Total # of Visits Approved: (Medical necessity) Total # of Visits to Date: 12 No Show: 0 Canceled Appointment: 4 Plan of care signed (Y/N): Faxed Certification Period: 04/26/2020-05/26/2020 Interventions used this date: Dysphagia Treatment and Instruction in Compensatory Strategies Subjective: Patient reports vocal quality is much better and that she has an occasional throat clear. Scratcher Goals: 1. Patient will tolerate least restrictive [...] with 90% accuracy in combination with the SENIOR SOUS CHEF using JEAN to the suprahyoidal musculature to [...] Mohr : 1955 Date: 03/11/2020 Visit Information: SENIOR SOUS CHEF Insurance Information: [employer] Medicare. Total # [...] Other: Comments: Electronically signed by: Vanna Mccollum CCC-SENIOR SOUS CHEF, Date: 03/11/2020, Time: 9:06 AM documented in this encounter* Vanna Mccollum SLP - 04/22/2020 9:00 AM EDT [facility] Outpatient Speech Language Pathology Adult Daily Note Shawnee Mohr : 1955 Date: 04/22/2020 Visit Information: SENIOR SOUS CHEF Insurance Information: [facility] Medicare.[employer] Medicare Total # [...] recommended that she take medication with applesauce. Scratcher Goals: 1. Patient will tolerate least restrictive [...] with 90% accuracy in combination with the SENIOR SOUS CHEF using JEAN to the suprahyoidal musculature to [...] Mccollum SLP - 04/03/2020 1:00 PM EDT [facility] Outpatient Speech Language Pathology Adult Daily Note Shawnee Mohr : 1955 Date: 04/03/2020 Visit Information: SENIOR SOUS CHEF Insurance Information: [facility] Medicare.[employer] Medicare Total # [...] recommended that she take medication with applesauce. Senior Care Goals: 1. Patient will tolerate least restrictive [...] with 90% accuracy in combination with the SENIOR SOUS CHEF using JEAN to the suprahyoidal musculature to [...] Mccollum SLP - 03/27/2020 9:00 AM EDT [facility] Outpatient Speech Language Pathology Adult Daily Note Shawnee Mohr : 1955 Date: 03/27/2020 Visit Information: SENIOR SOUS CHEF Insurance Information: [facility] Medicare.[facility] Medicare Total # of Visits Approved: (Medically necessary) Total # of Visits to Date: 4 No Show: 0 Canceled Appointment: 3 Plan of care signed (Y/N): Faxed Certification Period: 02/25/2020-03/25/2020 Interventions used this date: Dysphagia Treatment and Instruction in Compensatory Strategies Subjective: Patient reports improved swallowing. Some difficulty with small pills. It is recommended that she take medication with applesauce. Scratcher Goals: 1. Patient will tolerate least restrictive [...] *E-stim was recommended by evaluating therapist at [facility]. Doctors's office contacted again this date, spoke [...] sent through Care Everywhere. * Cervical: Exercises (Dominican) documented in this encounter Additional Source Comments INFORMATION SOURCE (unrecogn ized section and content) DATE CREATED AUTHOR AUTHOR'S ORGANIZ ATION 02/15/2020 [facility] DATE CREATED AUTHOR AUTHOR'S ORGANIZ ATION 06/01/2020 [facility] DATE CREATED AUTHOR AUTHOR'S ORGANIZ ATION 10/25/2021 [facility] DATE CREATED AUTHOR AUTHOR'S ORGANIZ ATION 09/23/2023 [facility] Reason for Visit (unrecogniz ed section and content) Status Reason Specialty Diagnoses / Procedures Referred By Contact Referred To Contact Pending Status Check - [facility] Radiology Diagnoses History of hypercalcemia Hyperparathyroidism due to renal insufficiency (HCC) Parathyroid adenoma Procedures NM PARATHYORID W SPECT NM Parathyroid Scan HC NM PARATHYROID SCAN Edgar Dennis PA [address] [place] [address] Status Reason Specialty Diagnoses / Procedures Referred By Contact Referred To Contact Not Required - [facility] Radiology Diagnoses Oropharyngeal dysphagia Procedures FL Modified Barium Swallow W Video Sajan Ramos MD [address] [place] [address] Status Reason Specialty Diagnoses / Procedures Re ferred By Contact Referred To Contact Not Required - [facility] Diagnoses Shortness of breath Procedures Full PFT Study With Bronchodilator Nash Cuellar MD [address] [place] [address] Status Reason Specialty Diagnoses / Procedures Re ferred By Contact Referred To Contact Manual Review Required - [facility] Radiology Diagnoses Renal cyst Procedures US RETROPERITONEAL LIMITED Jack Rosa MD [address] [place] [address] Status Reason Specialty Diagnoses / Procedures Referred By Contact Referred To Contact Authorized Specialty Services Required Speech Pathology / Speech Therapy Diagnoses Dysarthria Procedures Visits based on medical necessity copay $35 per visits Follows medicare guidelines Effective 12/26/19 Ref#[id number] 03/03@155 spoke to tonja re: benefits/ca [employer] 06/25/2020 Sajan Ramos MD [address] [facility] [address] [place] [address] Dominik Sage, SENIOR SOUS CHEF Status Reason Specialty Diagnoses / Procedures Referre d By Contact Referred To Contact Closed Radiology Diagnoses Cervical radiculopathy Procedures MRI CERVICAL SPINE WO CONTRAST Sajan Ramos MD [address] [facility] [address] [place] [address] Reason Comments Shoulder Pain Right upper arm, cecilio ulder, right side of neck pain x 1 week, worse yesterday Status Reason Specialty Diagnoses / Procedures Referre d By Contact Referred To Contact Open Radiology Diagnoses Oropharyngeal dysphagia Procedures US HEAD NECK SOFT TISSUE THYROID Edgar Dennis, PA [address] [facility] [address] [place] [address] Reason Comments Nutrition Counseling BNA initial Reason [...] To Contact Diagnoses Dyspepsia Dyspepsia [R10.13] Procedures RI EGD TRANSORAL BIOPSY SINGLE/MULTIPLE EGD WITH BIOPSY Ole Faulkner MD [address] [place] [address] [address] [place] [address] [place] [address] Referral ID Status Reason Start Date Expiration Date Visits Re quested Visits Authorized [id number] 1 1 Reason Onset Date Comments Financial [...] 2 diabetes mellitus without complication, unspecified whether intermodal customer service insulin use (HCC) Delayed gastric emptying Procedures NM gastric emptying solid Bernadine Alvarado NP [address] [facility] [address] [place] [address] Referral ID Status Reason Start Date Expiration Date V isits Requested Visits Authorized [id number] Authorized 06/23/2023 12/20/2023 3 3 Reason Comments Weight Loss D/E 2 of 3 Reason Comments Weight Loss D/E 3 of 3 final Specialty Diagnoses / Procedures Referred By Adrian t Referred To Contact Diagnoses GERD (gastroesophageal reflux disease) GERD (gastroesophageal reflux disease) [K21.9] Procedures RI EGD TRANSORAL BIOPSY SINGLE/MULTIPLE EGD WITH BIOPSY Ole Faulkner MD [address] [facility] [address] [place] [address] [facility] [address] [place] [address] Referral ID Status Reason Start Date Expiration Date Visits Re quested Visits Authorized [id number] 1 1 Reason Comments Nutrition Counseling BNA Follow Up Reason Onset Date Comments Abnormal Lab 09/13/2023 Low iron Care Teams (unrecognized sec tion and content) Bilingual Interpreter Relationship Specialty Start Date End Date Alexis Epperson [address] [place] [id number] PCP - General Internal Medicine 01/27/23 Ole Faulkner MD [address] [facility] [address] [place] [address] Surgeon General Surgery 02/04/23 Bilingual Interpreter Relationship Specialty Start Date End Date Alexis Epperson B [address] [place] [address] PCP - General Internal Medicine 01/27/23 Ole Faulkner MD [address] [facility] [address] [place] [address] Surgeon General Surgery 02/04/23 Bilingual Interpreter Relationship Specialty Start Date End Date Alexis Epperson B [address] [place] [id number] PCP - General Internal Medicine 01/27/23 Ole Faulkner MD [address] [place], [place] [id number] Surgeon General Surgery 02/04/23 Bilingual Interpreter Relationship Specialty Start Date End Date Alexis Epperson [address] [address] PCP - General Internal Medicine 01/27/23 Ole Faulkner MD [address] [place] [address] [address] [place], [place] [id number] Surgeon General Surgery 02/04/23 Bilingual Interpreter Relationship Specialty Start Date End Date Alexis Epperson PCP - General Internal Medicine 01/27/23 Ole Faulkner MD [address] [place] [address] [address] [place], [place] [id number] Surgeon General Surgery 02/04/23 Bilingual Interpreter Relationship Specialty Start Date End Date Alexis Epperson PCP - General Internal Medicine 01/27/23 Ole Faulkner MD [address] [place] [address] [address] [place], [place] [id number] Surgeon General Surgery 02/04/23 Bilingual Interpreter Relationship Specialty Start Date End Date Alexis Epperson PCP - General Internal Medicine 01/27/23 Ole Faulkner MD [address] [place] [address] [address] [place], [place] [id number] Surgeon General Surgery 02/04/23 Bilingual Interpreter Relationship Specialty Start Date End Date Alexis Epperson PCP - General Internal Medicine 01/27/23 Ole Faulkner MD [address] [place], [place] [id number] Surgeon General Surgery 02/04/23 Bilingual Interpreter Relationship Specialty Start Date End Date MichaelarmandoAlexis christianson PCP - General Internal Medicine 01/27/23 Ole Faulkner MD [address] [place], [place] [id number] Surgeon General Surgery 02/04/23 Bilingual Interpreter Relationship Specialty Start Date End Date MichaelarmandoAnnmarie christiansonnovamildred [place] PCP - General Internal Medicine 01/27/23 Ole Faulkner MD [address] [place] [address] [address] [place] [address] Surgeon General Surgery 02/04/23 Bilingual Interpreter Relationship Specialty Start Date End Date MichaelarmandoAnnmarie christiansonnovamildred [place]an PCP - General Internal Medicine 01/27/23 Ole Faulkner MD [address] [place] [address] Surgeon General Surgery 02/04/23 Bilingual Interpreter Relationship Specialty Start Date End Date MichaelarmandoAlexis christianson PCP - General Internal Medicine 01/27/23 Ole Faulkner MD [address] [place] [address] [address] [place], [place] [id number] Surgeon General Surgery 02/04/23 Bilingual Interpreter Relationship Specialty Start Date End Date Alexis Epperson PCP - General Internal Medicine 01/27/23 Ole Faulkner MD [address] [place] [address] [address] [place], [place] [id number] Surgeon General Surgery 02/04/23 Bilingual Interpreter Relationship Specialty Start Date End Date Michaeloneil Annmarienovamildred Hernan PCP - General Internal Medicine 01/27/23 Ole Faulkner MD [address] [place] [address] [address] [place] [address] Surgeon General Surgery 02/04/23 Bilingual Interpreter Relationship Specialty Start Date End Date Michaelarmandomeghan Annmarienovamildred Hernan PCP - General Internal Medicine 01/27/23 Ole Faulkner MD [address] [place] [address] [address] [place] [address] Surgeon General Surgery 02/04/23 Bilingual Interpreter Relationship Specialty Start Date End Date Michaeloneil Annmariezoienatalie Hernan PCP - General Internal Medicine 01/27/23 Ole Faulkner MD [address] [place] [address] Surgeon General Surgery 02/04/23 Bilingual Interpreter Relationship Specialty Start Date End Date Alexis Epperson [place] PCP - General Internal Medicine 01/27/23 Ole Faulkner MD [address] [place], [place] [id number] Surgeon General Surgery 02/04/23 Bilingual Interpreter Relationship Specialty Start Date End Date Michaelarmandomeghan Annmariezoienatalie Hernan PCP - General Internal Medicine 01/27/23 Ole Faulkner MD [address] [place], [place] [id number] Surgeon General Surgery 02/04/23 Bilingual Interpreter Relationship Specialty Start Date End Date Annmarie Eppersonnovamildred Hernan PCP - General Internal Medicine 01/27/23 Ole Faulkner MD [address] [place] [address] [address] [place] [address] Surgeon General Surgery 02/04/23 Bilingual Interpreter Relationship Specialty Start Date End Date MichaelarmandoAnnmarie christiansonzoienatalie Hernan PCP - General Internal Medicine 01/27/23 Ole Fa[address] MD [address] [place] [address] Surgeon General Surgery 02/04/23 Bilingual Interpreter Relationship Specialty Start Date End Date Annmarie Eppersonnovamildred Hernan PCP - General Internal Medicine 01/27/23 Ole Faulkner MD [address] [place] [address] Surgeon General Surgery 02/04/23 Bilingual Interpreter Relationship Specialty Start Date End Date Alexis Epperson PCP - General Internal Medicine 01/27/23 Ole Faulkner MD [address] [place] [address] [address] [place] [address] Surgeon General Surgery 02/04/23 Bilingual Interpreter Relationship Specialty Start Date End Date MichaelChuyita riggsnatalie Hernan [address] [facility] [address] [place] [phone] PCP - General Internal Medicine 08/25/23 Ole Faulkner MD [address] [place] [address] [address] [place] [address] Surgeon General Surgery 02/04/23 Bilingual Interpreter Relationship Specialty Start Date End Date MichaelAlexis riggs [address] [facility] [address] [place] [phone] PCP - General Internal Medicine 08/25/23 Ole Faulkner MD [address] [place] [address] [address] [place] [address] Surgeon General Surgery 02/04/23 Bilingual Interpreter Relationship Specialty Start Date End Date Michaeloneil Annmariezoienatalie Becerra [address] [facility] [address] [place] [phone] PCP - General Internal Medicine 08/25/23 Ole Faulkner MD [address] [place] [address] [address] [place] [address] Surgeon General Surgery 02/04/23 Continuous Active and [...] BE BASED ON THE PRIMARY CLINICAL RECORDS. [facility] [employer] [facility]. provides no warranty or guarantee of the accuracy or completeness of information in this document.
[2023-10-02 10:53] LABS: Lactic Acid 0.7 mmol/L (0.4-1.9)
--- NOTE | 2023-10-02 12:47 | EX.PCM.CONCC ---
Assessment & Plan Assessment/Plan (1) Acute cystitis: QUALIFIERS: Hematuria presence: without hematuria Qualified Code(s): N30.00 - Acute cystitis without hematuria (2) Hyperkalemia: (3) Altered mental status: (4) Encephalopathy: (5) Pulmonary emboli: PLAN: Plan Assessment and plan Sepsis with transient hypotension currently improved no longer on Levophed. Patient received a total of 3 L IV fluid hydration. Her blood pressure improved. She is no longer on Levophed. MARIO on CKD. Her baseline creatinine is around 1.6. Continue IV fluid hydration Metabolic acidosis Hyperkalemia patient was medically treated. Repeat BMP is pending. Avoid normal saline as patient is acidotic and normal saline will likely cause none anion gap metabolic acidosis and increase her risk of hyperkalemia as well. Will maintain her on LR at 75 acute cystitis UA shows elevated leukocyte esterase. She is on Rocephin Acute metabolic encephalopathy may be secondary to sepsis. Per chart review patient has had waxing and waning mental status since her stroke on the last admission. Recent PE without RV strain currently on Eliquis Recent CVA Chronic conditions fatty liver, diabetes, hypertension, gout, depression and morbid obesity BMI 44.6. Chronic conditions complicate management, recovery, prognosis and care HPI Consult Data Date of Consult: 10/02/23 HPI Narrative Reason for Consultation: ICU care HPI Narrative: YVES NIÑO, is a 68 F with past medical history of fatty liver, diabetes, hypertension, gout, depression and morbid obesity BMI 44.6. Patient was recently admitted on 09/21/23 until 09/28 after she suffered COVID-19 infection completed remdesivir and Decadron, patient also had a CVA and PE and was d.sadaf on eliquis. Pt was d/.sadaf to [place] and she presented today from [place] with AMS and hypotension and concern for UTI and MARIO. She was started on peripheral low dose Levophed and given Rocephin as well as 3L of IV fluid hydration. when she arrived to the ICU her mental status was slightly better and she was off levo maintaining her BP [facility] Medical History Abnormal thyroid function test Anemia Anxiety Anxiety and depression Arthritis Back pain Bilateral lower extremity edema Blackout Chronic neck and back pain CKD (chronic kidney disease), stage III CPAP (continuous positive airway pressure) dependence Depression Diabetes Dietary restriction Difficulty balancing when standing Difficulty swallowing Dizziness Essential hypertension Fatigue Fatty liver Fibromyalgia Fibrosis of liver Flu vaccine need GERD (gastroesophageal reflux disease) Glaucoma Gout Hematuria High cholesterol History of echocardiogram History of pain when walking History of renal disease History of stress test History of thyroid nodule Hx of phlebitis Hyperlipidemia Insomnia Insulin dependent diabetes mellitus Leg cramps Limb weakness Liver disease Loss of hearing Lyme disease Macular degeneration Migraine headache Morbid obesity Myositis Non-smoker Obesity BENTLEY on CPAP Osteoporosis Polymyositis Restless legs Sensorineural hearing loss of both ears Shoulder pain Sinusitis Type 2 diabetes mellitus Vitamin D deficiency Wears glasses Home Medications CPAP #1 ea 09/24/20 [History Last Taken Unknown] aspirin 81 mg tablet,delayed release 81 mg PO DAILY heart health 09/24/20 [History Last Taken Unknown] blood pressure monitor (Blood Pressure Kit) #1 ea 09/24/20 [History Last Taken Unknown] blood sugar diagnostic (Accu-Chek Christi Plus test strips) #10 ea 09/24/20 [History Last Taken Unknown] blood-glucose meter #1 ea 09/24/20 [History Last Taken Unknown] lancets (Accu-Chek Softclix Lancets) #100 ea 09/24/20 [History Last Taken Unknown] latanoprost 0.005 % eye drops 1 drp ophthalmic (eye) PRN PRN MACULAR DEGENRATION 02/24/21 [History Last Taken Unknown] simethicone 80 mg chewable tablet 80 mg PO 4X/DAY PRN Flatulence #30 tabs 12/07/21 [Rx Last Taken Unknown] vitamin E 268 mg (400 unit) capsule 800 unit PO DAILY vitamin #60 caps 02/08/22 [Rx Last Taken Unknown] Bilateral wrist splints #2 ea 06/07/22 [Rx Last Taken Unknown] Trulicity 4.5 mg/0.5 mL subcutaneous pen injector (dulaglutide) 4.5 mg (0.5 mL) subcut QWEEK diabetes #2 mL 07/27/22 [Rx Last Taken Unknown] pen needle, diabetic 32 gauge x 1/4 (Novofine 32) #200 ea 07/27/22 [Rx Last Taken Unknown] cholestyramine (with sugar) 4 gram oral powder 4 g PO DAILY digestion #348.6 grams 08/12/22 [Rx Last Taken Unknown] fluticasone propionate 50 mcg/actuation nasal spray,suspension 2 spray intranasal PRN PRN Nasal Congestion 09/06/22 [History Last Taken Unknown] lisinopril 2.5 mg tablet See Rx Instructions .Route .COMPLEX blood pressure #90 TABLETS 10/26/22 [Rx Last Taken Unknown] pantoprazole 40 mg tablet,delayed release 40 mg PO BID reflux #180 tabs 01/04/23 [Rx Last Taken Unknown] ezetimibe 10 mg tablet (Zetia) 10 mg PO DAILY #60 tabs 02/28/23 [Rx Last Taken Unknown] insulin lispro 100 unit/mL subcutaneous pen (Humalog KwikPen (U-100) Insulin) 12 unit subcut TID 02/28/23 [History Last Taken Unknown] Jardiance 10 mg tablet (empagliflozin) 10 mg PO DAILY #30 tabs 03/14/23 [Rx Last Taken Unknown] denosumab 60 mg/mL subcutaneous syringe (Prolia) 60 mg subcut [id number] bone health #1 mL 03/17/23 [Rx Last Taken Unknown] insulin degludec 100 unit/mL (3 mL) subcutaneous pen (Tresiba FlexTouch U-100 insulin) 40 unit (0.4 mL) subcut QHS #36 mL 07/11/23 [Rx Last Taken Unknown] duloxetine 60 mg capsule,delayed release See Rx Instructions .Route .COMPLEX #180 caps 08/01/23 [Rx Last Taken Unknown] cholecalciferol (vitamin D3) 1,250 mcg (50,000 unit) capsule 1,250 mcg PO QWEEK vitamin #30 caps 08/22/23 [Rx Last Taken Unknown] amitriptyline 100 mg tablet 200 mg (2 x 100 mg) PO QHS sleep #180 tabs 08/23/23 [Rx Last Taken Unknown] buspirone 10 mg tablet 10 mg PO TID mental health #270 tabs 08/23/23 [Rx Last Taken Unknown] cyclobenzaprine 10 mg tablet 5 - 10 mg (0.5 - 1 x 10 mg) PO TID PRN muscle spasm #270 tabs 08/23/23 [Rx Last Taken Unknown] loratadine 10 mg tablet 10 mg PO DAILY allergies #90 tabs 08/23/23 [Rx Last Taken Unknown] pregabalin 150 mg capsule 150 mg PO BID pain #180 caps 08/23/23 [Rx Last Taken Unknown] rimegepant 75 mg disintegrating tablet (Nurtec ODT) 75 mg PO DAILY PRN migraine headache #8 tabs 08/23/23 [Rx Last Taken Unknown] albuterol sulfate 90 mcg/actuation aerosol inhaler (Ventolin HFA) 1 - 2 puff inhalation Q4H PRN PRN Wheezing #1 inh 09/11/23 [Rx Last Taken Unknown] metoprolol tartrate 25 mg tablet 12.5 mg (1/2 x 25 mg) PO BID #30 tabs 09/22/23 [Rx Last Taken Unknown] apixaban 5 mg tablet (Eliquis) 5 mg PO BID 10/02/23 [History Last Taken Unknown] ursodiol 250 mg tablet 250 mg PO DAILY gallstones 10/02/23 [History Last Taken Unknown] Allergy/AdvReac Type Severity Reaction Status Date / Time saliva substitute Allergy Severe Angioedema Verified 09/20/23 09:31 combination no.9 [From Deehubs PBF] gemfibrozil AdvReac Severe Myalgia Verified 09/20/23 09:31 Hncacxr-TAA-IdI Reductase AdvReac Severe muscle pain Verified 09/20/23 09:31 Inhibitor Family History Brother Diabetes Mother Diabetes Heart disease Hypertension Grandmother Diabetes Sister Diabetes Heart disease Hypertension Thyroid disorder Father Kidney disease Grandfather Kidney disease Surgical History H/O: hysterectomy History of bilateral knee arthroplasty History of cholecystectomy History of esophagogastroduodenoscopy (EGD) Hx of colonoscopy Social History Smoking Status: Never smoker second hand exposure: No alcohol intake: never substance use type: does not use yessenia/mandaeism: Congregation seatbelt use: always ROS ROS Narrative Unable to obtain due to pt's current status Physical Exam Narrative General lethargic but arousable. HEENT. Normocephalic atraumatic, pupils equal and reactive Respiratory reduced air entry bilaterally, no wheeze, no crackles Cardiac S1-S2, regular rate and rhythm GI abdomen obese soft and nontender MSK mild b/l le extremity edema Neuro moves all extremities, no dysarthria, no facial droop Lab / Micro Data 10/02/23 04:48 10/02/23 04:48 Labs: Laboratory Results - last 24 hr 10/02/23 04:18: POC Glucose 154 H 10/02/23 04:45: PT 15.6 H, INR 1.2, APTT 29.8 10/02/23 04:48: WBC 11.0, RBC 3.93 L, Hgb 11.4 L, Hct 36.9 L, MCV 93.9, MCH 29.0, MCHC 30.9 L, RDW Std Deviation 53.7 H, RDW Coeff of Paulo 15.4 H, Plt Count 225, MPV 11.8, Immature Gran % (Auto) 0.500, Neut % (Auto) 85.1 H, Lymph % (Auto) 10.0 L, [place] % (Auto) 3.6, Eos % (Auto) 0.6, Baso % (Auto) 0.2, Absolute Neuts (auto) 9.4 H, Absolute Lymphs (auto) 1.10, Nucleated RBC % 0, Sodium 136, Potassium 5.8 H, Chloride 109 H, Carbon Dioxide 19.0 L, Anion Gap 8, BUN 91 H, Creatinine 2.75 H, Estim Creat Clear Calc 14.77, Est GFR (MDRD) Af Amer 22 L, Est GFR (MDRD) Non-Af 18 L, BUN/Creatinine Ratio 33.1 H, Glucose 163 H, Calcium 9.1, Total Bilirubin 0.40, Direct Bilirubin 0.08, AST 19, ALT 25, Alkaline Phosphatase 124 H, Ammonia 17.0, Troponin I High Sens 22, Total Protein 6.3 L, Albumin 2.8 L, Globulin 3.5, TSH 3.88 H 10/02/23 05:51: POC Glucose 155 H 10/02/23 06:00: Lactic Acid 0.6 10/02/23 06:20: Urine Color Yellow, Urine Clarity Clear, Urine pH 5.0, Ur Specific Russell 1.020, Urine Protein 30 H, Urine Glucose (UA) 50 H, Urine Ketones Negative, Urine Occult Blood Negative, Urine Nitrite Negative, Urine Bilirubin Negative, Urine Urobilinogen Normal, Ur Leukocyte Esterase 500 H, Urine RBC 0 SEEN, Urine WBC 10-25 SEEN, Ur Squamous Epith Cells 0-5 SEEN, Urine Bacteria 1+, Urine Mucus 0 SEEN 10/02/23 10:22: Lactic Acid 0.7 ABG Data ABG results: ABG 10/02/23 04:47 Specimen Type ART Sample Site R Radial pH 7.23 L Bicarbonate Actual 19.7 L Total CO2 21 Base Excess -8 L O2 Saturation 97 O2 % 2.0 ABG pCO2 47.2 H ABG pO2 110 H Raphael Test Positive O2 Delivery Device Cannula Vent Mode Not entered Imagaing Radiology Impression Brain CT 10/02/23 04:25 IMPRESSION: Mucosal thickening in the paranasal sinuses. Complete opacification of the right maxillary sinus. There is no acute intracranial abnormality. Electronically Signed: Jessica Daniel MD at 6:12 EST , Cervical Spine CT 10/02/23 04:25 IMPRESSION: Multilevel degenerative changes, as described above. Electronically Signed: Jessica Daniel MD at 6:26 EST , Chest X-Ray 10/02/23 05:15 IMPRESSION: Persistent bibasilar atelectasis, no interval change since the previous study Electronically Signed: Jessica Daniel MD at 6:06 EST , Charges/Coding Visit Charges Inpatient E&M: 71296 Init Hosp L3
[2023-10-02 13:03] LABS: ALB/GLOB Ratio 0.7 RATIO (0.9-2.4); AST(SGOT) 23 U/L (15-37); Alanine Aminotransfer ALT/SGPT 23 U/L (13-56); Albumin, Serum 2.5 g/dL (3.2-5.0); Alkaline Phosphatase 123 U/L (45-117); Anion Gap 3 (5-15); BUN 77 mg/dL (7-18); BUN/Creat Ratio 31.4 RATIO (10-20); Calcium,Total 9.1 mg/dL (8.5-10.1); Chloride 116 mmol/L (98-107); Creatinine, Serum 2.45 mg/dL (0.55-1.02); EST Glomerular Filtration Rate 21 mL/min (>60); Est Glom Filt Rate - Afr Amer 25 mL/min (>60); Estimated Creatinine Clearance 16.58 ml/min; Globulin 3.6 g/dL (2.2-4.2); Glucose 102 mg/dL (74-106); Potassium 5.5 mmol/L (3.5-5.1); Protein, Total 6.1 g/dL (6.4-8.2); Sodium Level 139 mmol/L (136-145)
[2023-10-02] MEDS: Lactated Ringers 1,000 ML 75 ML IV (13:15)
[2023-10-02 14:02] LABS: Bedside Glucose 76 mg/dL (74-106)
[2023-10-02] MEDS: Ezetimibe 10 MG Tablet PO (14:36)
[2023-10-02] MEDS: Loratadine 10 MG Tablet PO (14:37)
[2023-10-02] MEDS: Aspirin E.C. 81 MG Tablet PO (14:37)
[2023-10-02] MEDS: Pantoprazole Sodium 40 MG Tablet PO ×2 (14:37→22:00)
[2023-10-02] MEDS: APIXABAN 5 MG TABLET PO ×2 (14:37→22:00)
[2023-10-02] MEDS: Ursodiol 250 MG Tablet PO (14:38)
[2023-10-02 17:20] LABS: Bedside Glucose 50 mg/dL (74-106)
--- NOTE | 2023-10-02 20:50 | CPS ---
Pt refused CPAP to wear at night.
[2023-10-02 22:11] LABS: Bedside Glucose 49 mg/dL (74-106)
[2023-10-02] MEDS: Miconazole Nitrate 43 GM Bottle 1 APPLIC TOPICAL (22:11)
[2023-10-02 22:26] LABS: Bedside Glucose 97 mg/dL (74-106)
[2023-10-02] MEDS: Acetaminophen 325 MG Tablet 650 MG PO (23:51)
[2023-10-03] VITALS (15 sets, daily range): BP systolic 95–125; BP diastolic 46–97; PULSE 77–95; RESP 14–23; TEMP 36.9–38.2; O2SAT 94–100; BMI 43.3
[2023-10-03 00:22] LABS: Bedside Glucose 70 mg/dL (74-106)
[2023-10-03] MEDS: Lactated Ringers 1,000 ML 75 ML IV ×2 (02:40→16:34)
[2023-10-03 05:33] LABS: Absolute Lymphocyte Count 1.87 X10^3/uL (0.83-4.51); Absolute Neutrophil Count 4.7 X10^3/uL (2.0-7.7); Basophil# 0.01 X10^3/uL; Basophil% 0.1 % (0-1); Eosinophil# 0.28 X10^3/uL; Eosinophils% 3.8 % (0-5); Hematocrit 33.7 % (37-47); Hemoglobin 10.4 g/dL (12.0-15.0); Lymphocyte # 1.87 X10^3/ul (0.83-4.51); Lymphocyte % 25.6 % (19-41); Mean Corp Hgb Conc 30.9 g/dL (32-36); Mean Corpuscular Hgb 28.7 pg (27.0-32.0); Mean Corpuscular Volume 92.8 fL (81-99); Mean Platelet Vol. 11.4 fl (6.2-12.0); Monocyte# 0.47 X10^3/uL; Monocyte% 6.4 % (0-10); NRBC Flagged by Analyzer 0 % (0-5); Neutrophil # 4.65 X10^3/uL (2.7-7.7); Neutrophil % 63.7 % (47-70); Platelet Count 195 K/mm3 (150-450); RBC Distribution Width CV 15.4 % (11.6-14.6); RBC Distribution Width SD 51.9 fl (35.1-43.9); Red Blood Count 3.63 M/mm3 (4.2-5.4); White Blood Count 7.3 K/mm3 (4.4-11.0)
[2023-10-03 05:50] LABS: AST(SGOT) 21 U/L (15-37); Alanine Aminotransfer ALT/SGPT 21 U/L (13-56); Albumin, Serum 2.4 g/dL (3.2-5.0); Alkaline Phosphatase 114 U/L (45-117); Anion Gap 8 (5-15); BUN 56 mg/dL (7-18); BUN/Creat Ratio 36.1 RATIO (10-20); Bilirubin, Direct 0.09 mg/dL (0.00-0.30); Calcium,Total 8.8 mg/dL (8.5-10.1); Chloride 115 mmol/L (98-107); Creatinine, Serum 1.55 mg/dL (0.55-1.02); EST Glomerular Filtration Rate 35 mL/min (>60); Est Glom Filt Rate - Afr Amer 43 mL/min (>60); Estimated Creatinine Clearance 27.47 ml/min; Globulin 3.1 g/dL (2.2-4.2); Glucose 82 mg/dL (74-106); Magnesium 1.9 mg/dL (1.6-2.6); Phosphorus 2.8 mg/dL (2.5-4.9); Potassium 5.2 mmol/L (3.5-5.1); Protein, Total 5.5 g/dL (6.4-8.2); Sodium Level 141 mmol/L (136-145)
--- NOTE | 2023-10-03 06:46 | PCM.PN.INT ---
Assessment & Plan Assessment/Plan (1) Sepsis: PLAN: Plan RECOMMENDATIONS: 1. Continue antimicrobials pending finalized culture results. 2. Continue Eliquis. 3. Encourage incentive spirometer use and mobilize patient as tolerated. 4. The patient is medically stable for transfer out of the intensive care unit. IMPRESSIONS: 1. Sepsis The patient presented to the hospital sepsis sepsis due to suspected urinary tract source of infection with acute sepsis related organ dysfunction as evidenced by altered mental status and acute kidney injury. The patient remains hemodynamically stable this morning. She does not require any vasopressor support. The patient will be continued on broad-spectrum antimicrobials, pending infectious workup. 2. Acute kidney injury Most likely prerenal in etiology in the setting #1. Creatinine has improved with volume expansion. Continue to monitor urine output for now. No current indication for renal replacement therapy. 3. Recent diagnosis of pulmonary embolism in the setting of COVID-19 Continue Eliquis as prescribed with tentative plans to complete 3 months of therapy. 4. History of morbid obesity/diabetes mellitus/depression/hypertension/gout Complicates care, management, recovery and prognosis. Continue home medications as indicated. This note was generated with [employer] dictation software. It may contain incorrect words, spelling, and punctuation that were not noted in checking the note before signing. Subjective Subjective The patient was seen and examined at the bedside this morning. Events from the last 24 hours have been reviewed. The patient is currently afebrile, hemodynamically stable and maintaining appropriate oxygen saturations on room air. The patient has not required any vasopressor support. She is documented to be overall net +2.8 L for the hospitalization. Potassium is elevated at 5.2 with a bicarbonate of 18 and creatinine of 1.5, which has improved from 2.45 yesterday. Objective Data Objective Data The patient's most recent lab work, culture data and imaging studies have all been personally reviewed. Surface echocardiogram completed on September 20 demonstrated an ejection fraction of 45 to 50%. COVID PCR was positive on October 02. Blood and urine cultures are pending. Vital Signs: Vital Signs Temp Pulse Resp BP Pulse Ox O2 Del Method O2 Flow Rate 98.6 F 77 15 103/72 98 Room Air 4 10/03/23 06:00 10/03/23 06:00 10/03/23 06:00 10/03/23 06:00 10/03/23 06:00 10/03/23 06:00 10/02/23 04:14 Oxygen Flow Rate (L/min) 4 Oxygen Delivery Method Room Air Weight: 237 lb Body Mass Index (BMI) 43.3 Intake & Output: Intake and Output for Last 24 Hours 10/01/23 10/02/23 10/03/23 23:59 23:59 23:59 Intake Total 4853.97 / 4853.97 1240 / 1240 Output Total 2500 / 2750 835 / 835 Balance 2353.97 / 2103.97 405 / 405 Lab / Micro Data Attestation: I reviewed the patient's lab results. 10/03/23 05:24 10/03/23 05:24 Labs: Laboratory Results - last 24 hr 10/02/23 04:48: TSH 3.88 H 10/02/23 06:20: Urine Color Yellow, Urine Clarity Clear, Urine pH 5.0, Ur Specific Stanwood 1.020, Urine Protein 30 H, Urine Glucose (UA) 50 H, Urine Ketones Negative, Urine Occult Blood Negative, Urine Nitrite Negative, Urine Bilirubin Negative, Urine Urobilinogen Normal, Ur Leukocyte Esterase 500 H, Urine RBC 0 SEEN, Urine WBC 10-25 SEEN, Ur Squamous Epith Cells 0-5 SEEN, Urine Bacteria 1+, Urine Mucus 0 SEEN 10/02/23 10:22: Lactic Acid 0.7 10/02/23 12:40: Sodium 139, Potassium 5.5 H, Chloride 116 H, Carbon Dioxide 20.0 L, Anion Gap 3 L, BUN 77 H, Creatinine 2.45 H, Estim Creat Clear Calc 16.58, Est GFR (MDRD) Af Amer 25 L, Est GFR (MDRD) Non-Af 21 L, BUN/Creatinine Ratio 31.4 H, Glucose 102, Calcium 9.1, Total Bilirubin 0.10 L, AST 23, ALT 23, Alkaline Phosphatase 123 H, Total Protein 6.1 L, Albumin 2.5 L, Globulin 3.6, Albumin/Globulin Ratio 0.7 L 10/02/23 13:10: POC Glucose 76 10/02/23 16:48: POC Glucose 50 L 10/02/23 17:32: POC Glucose 49 L 10/02/23 18:12: POC Glucose 70 L 10/02/23 21:57: POC Glucose 97 10/03/23 05:24: WBC 7.3, RBC 3.63 L, Hgb 10.4 L, Hct 33.7 L, MCV 92.8, MCH 28.7, MCHC 30.9 L, RDW Std Deviation 51.9 H, RDW Coeff of Paulo 15.4 H, Plt Count 195, MPV 11.4, Immature Gran % (Auto) 0.400, Neut % (Auto) 63.7, Lymph % (Auto) 25.6, Grainger % (Auto) 6.4, Eos % (Auto) 3.8, Baso % (Auto) 0.1, Absolute Neuts (auto) 4.7, Absolute Lymphs (auto) 1.87, Nucleated RBC % 0, Sodium 141, Potassium 5.2 H, Chloride 115 H, Carbon Dioxide 18.0 L, Anion Gap 8, BUN 56 H, Creatinine 1.55 H, Estim Creat Clear Calc 27.47, Est GFR (MDRD) Af Amer 43 L, Est GFR (MDRD) Non-Af 35 L, BUN/Creatinine Ratio 36.1 H, Glucose 82, Calcium 8.8, Phosphorus 2.8, Magnesium 1.9, Total Bilirubin 0.30, Direct Bilirubin 0.09, AST 21, ALT 21, Alkaline Phosphatase 114, Total Protein 5.5 L, Albumin 2.4 L, Globulin 3.1 Micro: Microbiology 10/02/23 13:18 Mucosa - Nasopharyngeal SARS-CoV-2, Influenza & RSV (PCR) - Final SARS-CoV-2 (COVID 19 PCR) Physical Exam Const alert and no apparent distress General Appearance: cooperative HEENT normocephalic and head/scalp atraumatic Eyes PERRL, EOMs intact bilaterally and conjunctivae normal Neck supple General: trachea midline Chest inspection of chest normal Resp normal respiratory effort Auscultation: Negative for rales, rhonchi or wheezes Cardio regular rate, regular rhythm, S1 normal heart sound and S2 normal heart sound GI normal to inspection, nondistended, normoactive bowel sounds Extremity no clubbing, cyanosis or edema Skin no rashes or lesions noted Neuro no focal motor deficits Psych cooperative and affect normal Charges/Coding Visit Charges Inpatient E&M: 45112 Subs Hosp L2
[2023-10-03 06:59] LABS: Bedside Glucose 50 mg/dL (74-106)
[2023-10-03 07:18] LABS: Bedside Glucose 55 mg/dL (74-106)
--- NOTE | 2023-10-03 07:22 | PCM.PN.HOSP ---
Reason for Visit Reason for Visit: Diagnoses Sepsis, unspecified organism (10/02/23) Hyperkalemia (10/02/23) Encephalopathy, unspecified (10/02/23) Other pulmonary embolism without acute cor pulmonale (10/02/23) Acute cystitis without hematuria (10/02/23) Altered mental status, unspecified (10/02/23) Severe sepsis with septic shock (10/02/23) Subjective Subjective Patient is a 68-year-old female with multiple comorbidities resident of [facility] was brought to the emergency department with acute encephalopathy. An assessment of septic shock secondary to acute cystitis was made admitted to the intensive care unit where patient was managed Objective Data Objective Data Vital Signs: Vital Signs Temp Pulse Resp BP Pulse Ox O2 Del Method O2 Flow Rate 98.6 F 77 15 103/72 98 Room Air 4 10/03/23 06:00 10/03/23 06:00 10/03/23 06:00 10/03/23 06:00 10/03/23 06:00 10/03/23 06:00 10/02/23 04:14 Oxygen Flow Rate (L/min) 4 Oxygen Delivery Method Room Air Weight: 107.501 kg Body Mass Index (BMI) 43.3 Intake & Output: Intake and Output for Last 24 Hours 10/01/23 10/02/23 10/03/23 23:59 23:59 23:59 Intake Total 4853.97 / 4853.97 1240 / 1240 Output Total 2500 / 2750 835 / 835 Balance 2353.97 / 2103.97 405 / 405 Lab / Micro Data 10/03/23 05:24 10/03/23 05:24 Labs: Laboratory Results - last 24 hr 10/02/23 04:48: TSH 3.88 H 10/02/23 10:22: Lactic Acid 0.7 10/02/23 12:40: Sodium 139, Potassium 5.5 H, Chloride 116 H, Carbon Dioxide 20.0 L, Anion Gap 3 L, BUN 77 H, Creatinine 2.45 H, Estim Creat Clear Calc 16.58, Est GFR (MDRD) Af Amer 25 L, Est GFR (MDRD) Non-Af 21 L, BUN/Creatinine Ratio 31.4 H, Glucose 102, Calcium 9.1, Total Bilirubin 0.10 L, AST 23, ALT 23, Alkaline Phosphatase 123 H, Total Protein 6.1 L, Albumin 2.5 L, Globulin 3.6, Albumin/Globulin Ratio 0.7 L 10/02/23 13:10: POC Glucose 76 10/02/23 16:48: POC Glucose 50 L 10/02/23 17:32: POC Glucose 49 L 10/02/23 18:12: POC Glucose 70 L 10/02/23 21:57: POC Glucose 97 10/03/23 05:24: WBC 7.3, RBC 3.63 L, Hgb 10.4 L, Hct 33.7 L, MCV 92.8, MCH 28.7, MCHC 30.9 L, RDW Std Deviation 51.9 H, RDW Coeff of Paulo 15.4 H, Plt Count 195, MPV 11.4, Immature Gran % (Auto) 0.400, Neut % (Auto) 63.7, Lymph % (Auto) 25.6, [place] % (Auto) 6.4, Eos % (Auto) 3.8, Baso % (Auto) 0.1, Absolute Neuts (auto) 4.7, Absolute Lymphs (auto) 1.87, Nucleated RBC % 0, Sodium 141, Potassium 5.2 H, Chloride 115 H, Carbon Dioxide 18.0 L, Anion Gap 8, BUN 56 H, Creatinine 1.55 H, Estim Creat Clear Calc 27.47, Est GFR (MDRD) Af Amer 43 L, Est GFR (MDRD) Non-Af 35 L, BUN/Creatinine Ratio 36.1 H, Glucose 82, Calcium 8.8, Phosphorus 2.8, Magnesium 1.9, Total Bilirubin 0.30, Direct Bilirubin 0.09, AST 21, ALT 21, Alkaline Phosphatase 114, Total Protein 5.5 L, Albumin 2.4 L, Globulin 3.1 10/03/23 06:32: POC Glucose 50 L 10/03/23 07:00: POC Glucose 55 L Micro: Microbiology 10/02/23 13:18 Mucosa - Nasopharyngeal SARS-CoV-2, Influenza & RSV (PCR) - Final SARS-CoV-2 (COVID 19 PCR) Physical Exam Narrative GENERAL: Cooperative HEENT: Atraumatic; normocephalic EYES; Anicteric, Normal Conjunctiva NECK; supple, normal thyroid, RESPIRATORY: Diminished to auscultation CARDIOVASCULAR: Regular S1 S2, GI: soft, normoactive bowel sounds, : No Renal angle tenderness; EXTREMITIES: No edema, no clubbing, MUSCULOSKELETAL: no muscle wasting NEURO: Awake; no lateralizing signs. SKIN: No Rash PSYCH; flat affect Assessment & Plan Assessment/Plan (1) Encephalopathy: (2) Septic shock: (3) Hyperkalemia: (4) Acute cystitis: QUALIFIERS: Hematuria presence: without hematuria Qualified Code(s): N30.00 - Acute cystitis without hematuria PLAN: Plan Patient is a 68-year-old female with multiple comorbidities resident of [facility] was brought to the emergency department with acute encephalopathy 1. Acute metabolic encephalopathy ? Secondary to septic shock from UTI patient has been admitted to the intensive care unit for treatment of underlying condition ? 10/03/2023; acute encephalopathy resolved patient back to baseline 2. Septic shock ? Secondary to acute cystitis. Patient was resuscitated with IV fluid without much response necessitating patient being started on pressor support with Levophed. Patient was started on broad-spectrum antibiotic therapy after cultures have been obtained. Patient response to therapy being monitored with serial lactic acid levels as well as response to blood pressure. ? 10/03/2023; patient was weaned off Levophed after arriving in the ICU 3. Acute kidney injury ? Superimposed on chronic kidney disease stage III. Patient baseline creatinine ranges from 1.5-1.6. Creatinine on admission was 2.75. Potential nephrotoxic medications held patient resuscitated with IV fluid with subsequent serial monitoring of electrolytes ordered ? 10/03/2023; creatinine down to 1.55 4. Hyperkalemia ? Secondary to acute kidney injury, repeat labs ordered and if still elevated patient to be treated with Kayexalate ? 10/03/2023; patient did not require Kayexalate, potassium down to 5.2 5. Recent diagnosis of submassive PE with right ventricular strain ? Patient is on apixaban continue 6. Essential hypertension ? Patient blood pressure low on admission her antihypertensives held 7. Depression ? Patient psychotropic medications held in view of her significant encephalopathy 8. Class III obesity with BMI of 44.6 ? Complicating care 9. Diabetes mellitus type 2 ? Patient oral hypoglycemic agent held did continue with her antihypertensives 10. Anemia - Secondary to chronic disorder monitoring H&H and transfuse if patient becomes symptomatic or hemoglobin falls below 7 11. DVT prophylaxis ? Patient is on apixaban Time spent in the patient's overall evaluation,decision-making process, review of diagnostic data, adjustment of management, discussion with other providers, nursing nursing and ancillary staff involved in patient's care documentation 55 Minutes Charges/Coding Visit Charges Inpatient E&M: 84442 Subs Hosp L3
[2023-10-03] MEDS: Dextrose 50%-Water 25 GM/50 ML DISP.SYRIN IV (07:54)
[2023-10-03] MEDS: Aspirin E.C. 81 MG Tablet PO (08:01)
[2023-10-03] MEDS: Miconazole Nitrate 43 GM Bottle 1 APPLIC TOPICAL ×2 (08:01→22:17)
[2023-10-03] MEDS: APIXABAN 5 MG TABLET PO ×2 (08:01→22:17)
[2023-10-03] MEDS: Loratadine 10 MG Tablet PO (08:01)
[2023-10-03] MEDS: Pantoprazole Sodium 40 MG Tablet PO ×2 (08:02→22:17)
[2023-10-03] MEDS: Ursodiol 250 MG Tablet PO (08:02)
[2023-10-03] MEDS: Ezetimibe 10 MG Tablet PO (08:02)
[2023-10-03 08:05] LABS: Bedside Glucose 62 mg/dL (74-106)
[2023-10-03] MEDS: Ceftriaxone 1 GM/50 ML BAG IV (09:52)
--- NOTE | 2023-10-03 10:08 | CASEMGMT ---
Social Work Pt does not have LW/POA, pt may be interested in completing the documents. SW inquired who she would want to put, initially pt states her significant other Chau. However, pt also mentioned that his health is not good, and hospice may be getting involved soon. Her son is disabled, so may want to do POA papers and make her brother her healthcare POA. SW let [facility] know to follow up w/pt on this, as pt is not fully alert and oriented at this time. NICOLASA Chavez
[2023-10-03 10:16] LABS: Bedside Glucose 170 mg/dL (74-106)
--- NOTE | 2023-10-03 10:17 | CASEMGMT ---
Social Work SW met w/pt in room in regard to discharge plan. Pt confirmed would like to return to [facility] at discharge, does not need a list of other facilities. She then asked about going back on hospice. Upon further discussion, pt explained that her significant other Chau who is also at [facility] may need hospice. She states the plan is for both of them to go back to [facility]. She thought Chau was also in the hospital. She states does not remember how she got to the hospital. SW reviewed the ED information, SW let her know they found her next to her chair at [facility] and they sent her into the hospital. Pt normally lives w/her son Oliver Mohr, who she states has autism, schizoaffective disorder and bipolar. She states he is 23, he does not drive. She states she was supposed to go pick him up to bring him to visit, but isn't clear on what happened. SW explained that she likely cannot drive right now. Pt agreed with this. She states she adopted her son from [facility]. She thinks she is his guardian. She has never gotten him involved w/[facility]. She states that she needed to give them dates for things and doesn't know the dates so could not get him involved there. She states he is managing fine at home, she checks on him and her brother also checks on him. She states her brother door dashed him some groceries. SW asked about LW/POA, pt has not completed these documents. Initially she mentioned Chau as who she wanted to be POA. However upon further discussion she thought he may not be able to make decisions for her, and mentioned her brother Abraham Story in [place] as a possibility. SW encouraged her to speak w/Abraham about it. PITER called [facility], spoke w/Marisa. SW inquired about pt's son, she state the son has been in to visit, seems to be high functioning and managing fine at home. She does not think pt is actually his guardian. SW asked them to follow up w/pt about LW/POA when she returns and pt is more clear mentally, and that pt mentioned making her brother POA. PITER let [facility]isa know pt would like to return at discharge, and we will send updates later today. She is going to look for son's number as pt wants to call him but does not have his number. SW will continue to follow, plan will be for pt to return to [facility] at discharge. A new precert will be needed in order for pt to return. NICOLASA Chavez
--- NOTE | 2023-10-03 10:23 | CASEMGMT ---
Discharge Planning Updates sent to [place] via [facility]. Cherelle Vo, Discharge Planning Asst.
[2023-10-03] MEDS: Metoprolol Tartrate 25 MG Tablet 12.5 MG PO ×2 (12:06→22:17)
[2023-10-03] MEDS: Acetaminophen 325 MG Tablet 650 MG PO (12:06)
[2023-10-03 13:20] LABS: Bedside Glucose 148 mg/dL (74-106)
--- NOTE | 2023-10-03 14:12 | CHAPLAIN ---
Type of Pastoral Visit _x__ Initial Visit ___ Follow-up Visit ___ On-call Visit ___ General Patient Visit ___ Spiritual Assessment ___ Family Conference ___ Bereavement ___ Rapid Response ___ Code Blue ___ Other (describe below) Pastoral Care Referral From _x__ Patient ___ Family ___ Nurse ___ Physician ___ Bean Picker Machine Operator ___ Research Neuropsychologist ___ Other (describe below) Sacrament/Intervention _x__ Active listening ___ Anointing ___ Oriental Orthodox ___ Bereavement ___ Communion ___ Pamella exploration ___ _x__ Life review _x__ Prayer ___ Reconciliation ___ Sacrament of Sick _x__ Supportive presence ___ Wedding ___ Other (describe below) Pastoral Comments patient says that she remembers this instrument and control technician from previous visits to her SO that has been a patient here many times; pt states that she does not remember how she got here and that I got dropped off at the door ; RN reminds pt that she was brought to hospital by squad from the SNF she was in'; pt says that she believes her son will be in to visit today and that her brother made sure that son had something to eat; pt can describe a future surgery for esophageal cancer that she expects to have soon; pt welcomes a prayer and asks specifically that she can remember things that are not there ;
--- NOTE | 2023-10-03 16:25 | NURSING ---
REVEIVED CALL FROM PCU LIBRARY MEDIA ASSISTANT WHO STATES, PT'S BROTHER CALLED IN TO SAY THAT HE IS PLANNING ON COMING UP FROM OUT OF STATE TO COMPLETE POA PAPERWORK. BROTHER REQUESTED THAT PT NOT BE TOLD AT THIS TIME. WILL REFER BROTHER TO CABLE CUTTER AND SWAGER UPON ARRIVAL.
[2023-10-03 17:01] LABS: Bedside Glucose 104 mg/dL (74-106)
[2023-10-03] MEDS: Latanoprost 0.005% 1 Bottle 1 DRP OPHTHALMIC (22:16)
[2023-10-03] MEDS: Pregabalin 75 MG Capsule 150 MG PO (22:20)
[2023-10-03 22:56] LABS: Bedside Glucose 114 mg/dL (74-106)
[2023-10-04] VITALS (8 sets, daily range): BP systolic 93–132; BP diastolic 62–95; PULSE 72–93; RESP 17–20; TEMP 36.9–38.2; O2SAT 94–98; BMI 42.6
[2023-10-04 05:36] LABS: Absolute Lymphocyte Count 2.03 X10^3/uL (0.83-4.51); Absolute Neutrophil Count 4.5 X10^3/uL (2.0-7.7); Basophil# 0.02 X10^3/uL; Basophil% 0.3 % (0-1); Eosinophil# 0.37 X10^3/uL; Eosinophils% 4.9 % (0-5); Hematocrit 31.5 % (37-47); Hemoglobin 9.8 g/dL (12.0-15.0); Lymphocyte # 2.03 X10^3/ul (0.83-4.51); Lymphocyte % 26.9 % (19-41); Mean Corp Hgb Conc 31.1 g/dL (32-36); Mean Corpuscular Hgb 28.4 pg (27.0-32.0); Mean Corpuscular Volume 91.3 fL (81-99); Mean Platelet Vol. 11.5 fl (6.2-12.0); Monocyte% 7.9 % (0-10); NRBC Flagged by Analyzer 0 % (0-5); Neutrophil % 59.6 % (47-70); Platelet Count 174 K/mm3 (150-450); RBC Distribution Width CV 15.5 % (11.6-14.6); Red Blood Count 3.45 M/mm3 (4.2-5.4); White Blood Count 7.6 K/mm3 (4.4-11.0)
[2023-10-04 05:50] LABS: Anion Gap 4 (5-15); BUN 54 mg/dL (7-18); BUN/Creat Ratio 38.6 RATIO (10-20); Calcium,Total 9.1 mg/dL (8.5-10.1); Chloride 116 mmol/L (98-107); EST Glomerular Filtration Rate 40 mL/min (>60); Est Glom Filt Rate - Afr Amer 48 mL/min (>60); Estimated Creatinine Clearance 30.42 ml/min; Glucose 101 mg/dL (74-106); Potassium 5.8 mmol/L (3.5-5.1); Sodium Level 140 mmol/L (136-145)
--- NOTE | 2023-10-04 07:19 | PCM.PN.INT ---
Assessment & Plan Assessment/Plan (1) Sepsis: PLAN: Plan RECOMMENDATIONS: 1. Continue antimicrobials pending finalized culture results. 2. Continue Eliquis. 3. Encourage incentive spirometer use and mobilize patient as tolerated. IMPRESSIONS: 1. Sepsis The patient presented to the hospital sepsis sepsis due to suspected urinary tract source of infection with acute sepsis related organ dysfunction as evidenced by altered mental status and acute kidney injury. The patient remains hemodynamically stable. She remains on empiric broad-spectrum antimicrobials, pending finalized culture results. 2. Acute kidney injury Most likely prerenal in etiology in the setting #1. Creatinine has improved with volume expansion. Continue to monitor urine output for now. No current indication for renal replacement therapy. 3. Recent diagnosis of pulmonary embolism in the setting of COVID-19 Continue Eliquis as prescribed with tentative plans to complete 3 months of therapy. 4. History of morbid obesity/diabetes mellitus/depression/hypertension/gout Complicates care, management, recovery and prognosis. Continue home medications as indicated. This note was generated with [employer] dictation software. It may contain incorrect words, spelling, and punctuation that were not noted in checking the note before signing. Subjective Subjective The patient was seen and examined at the bedside this morning. Events from the last 24 hours have been reviewed. The patient is currently afebrile, hemodynamically stable and maintaining appropriate oxygen saturations on room air. No overnight issues were identified by the nursing staff. The patient is documented to be overall net +2.6 L for the hospitalization. Creatinine has improved to 1.4. Objective Data Objective Data The patient's most recent lab work, culture data and imaging studies have all been personally reviewed. Surface echocardiogram completed on September 20 demonstrated an ejection fraction of 45 to 50%. COVID PCR was positive on October 02. Urine culture is positive for presumptive E. coli. Vital Signs: Vital Signs Temp Pulse Resp BP Pulse Ox O2 Del Method O2 Flow Rate 99.6 F H 77 20 H 93/62 94 Room Air 4 10/04/23 02:00 10/04/23 02:00 10/04/23 02:00 10/04/23 02:00 10/04/23 02:00 10/04/23 02:00 10/02/23 04:14 Oxygen Flow Rate (L/min) 4 Oxygen Delivery Method Room Air Weight: 233 lb 3.985 oz Body Mass Index (BMI) 42.6 Intake & Output: Intake and Output for Last 24 Hours 10/02/23 10/03/23 10/04/23 23:59 23:59 23:59 Intake Total 4853.97 / 4853.97 2301.25 / 2301.25 Output Total 2500 / 2750 2034 / 2034 1000 / 1000 Balance 2353.97 / 2103.97 266.25 / 266.25 -1000 / -1000 Lab / Micro Data Attestation: I reviewed the patient's lab results. 10/04/23 05:27 10/04/23 05:27 Labs: Laboratory Results - last 24 hr 10/03/23 07:46: POC Glucose 62 L 10/03/23 09:53: POC Glucose 170 H 10/03/23 13:02: POC Glucose 148 H 10/03/23 16:32: POC Glucose 104 10/03/23 22:34: POC Glucose 114 H 10/04/23 05:27: WBC 7.6, RBC 3.45 L, Hgb 9.8 L, Hct 31.5 L, MCV 91.3, MCH 28.4, MCHC 31.1 L, RDW Std Deviation 51.0 H, RDW Coeff of Paulo 15.5 H, Plt Count 174, MPV 11.5, Immature Gran % (Auto) 0.400, Neut % (Auto) 59.6, Lymph % (Auto) 26.9, [place] % (Auto) 7.9, Eos % (Auto) 4.9, Baso % (Auto) 0.3, Absolute Neuts (auto) 4.5, Absolute Lymphs (auto) 2.03, Nucleated RBC % 0, Sodium 140, Potassium 5.8 H, Chloride 116 H, Carbon Dioxide 20.0 L, Anion Gap 4 L, BUN 54 H, Creatinine 1.40 H, Estim Creat Clear Calc 30.42, Est GFR (MDRD) Af Amer 48 L, Est GFR (MDRD) Non-Af 40 L, BUN/Creatinine Ratio 38.6 H, Glucose 101, Calcium 9.1 Micro: Microbiology 10/02/23 06:20 Urine, Catheterized Urine Culture - Final Presumptive E. coli 10/02/23 13:18 Mucosa - Nasopharyngeal SARS-CoV-2, Influenza & RSV (PCR) - Final SARS-CoV-2 (COVID 19 PCR) Physical Exam Const alert and no apparent distress General Appearance: cooperative HEENT normocephalic and head/scalp atraumatic Eyes PERRL, EOMs intact bilaterally and conjunctivae normal Neck supple General: trachea midline Chest inspection of chest normal Resp normal respiratory effort Auscultation: Negative for rales, rhonchi or wheezes Cardio regular rate, regular rhythm, S1 normal heart sound and S2 normal heart sound GI normal to inspection, nondistended, normoactive bowel sounds Extremity no clubbing, cyanosis or edema Skin no rashes or lesions noted Neuro no focal motor deficits Psych cooperative and affect normal Charges/Coding Visit Charges Inpatient E&M: 22528 Subs Hosp L2
[2023-10-04] MEDS: Lactated Ringers 1,000 ML 75 ML IV (07:37)
--- NOTE | 2023-10-04 07:44 | PCM.PN.HOSP ---
Reason for Visit Reason for Visit: Diagnoses Sepsis, unspecified organism (10/02/23) Hyperkalemia (10/02/23) Encephalopathy, unspecified (10/02/23) Other pulmonary embolism without acute cor pulmonale (10/02/23) Acute cystitis without hematuria (10/02/23) Altered mental status, unspecified (10/02/23) Severe sepsis with septic shock (10/02/23) Subjective Subjective Patient urine cultures came back positive for E. coli currently on appropriate antibiotic therapy Objective Data Objective Data Vital Signs: Vital Signs Temp Pulse Resp BP Pulse Ox O2 Del Method O2 Flow Rate 99.6 F H 77 20 H 93/62 94 Room Air 4 10/04/23 02:00 10/04/23 02:00 10/04/23 02:00 10/04/23 02:00 10/04/23 02:00 10/04/23 02:00 10/02/23 04:14 Oxygen Flow Rate (L/min) 4 Oxygen Delivery Method Room Air Weight: 105.8 kg Body Mass Index (BMI) 42.6 Intake & Output: Intake and Output for Last 24 Hours 10/02/23 10/03/23 10/04/23 23:59 23:59 23:59 Intake Total 4853.97 / 4853.97 2301.25 / 2301.25 1000 / 1000 Output Total 2500 / 2750 2035 / 2035 1000 / 1000 Balance 2353.97 / 2103.97 266.25 / 266.25 0 / 0 Lab / Micro Data 10/04/23 05:27 10/04/23 05:27 Labs: Laboratory Results - last 24 hr 10/03/23 07:46: POC Glucose 62 L 10/03/23 09:53: POC Glucose 170 H 10/03/23 13:02: POC Glucose 148 H 10/03/23 16:32: POC Glucose 104 10/03/23 22:34: POC Glucose 114 H 10/04/23 05:27: WBC 7.6, RBC 3.45 L, Hgb 9.8 L, Hct 31.5 L, MCV 91.3, MCH 28.4, MCHC 31.1 L, RDW Std Deviation 51.0 H, RDW Coeff of Paulo 15.5 H, Plt Count 174, MPV 11.5, Immature Gran % (Auto) 0.400, Neut % (Auto) 59.6, Lymph % (Auto) 26.9, [place] % (Auto) 7.9, Eos % (Auto) 4.9, Baso % (Auto) 0.3, Absolute Neuts (auto) 4.5, Absolute Lymphs (auto) 2.03, Nucleated RBC % 0, Sodium 140, Potassium 5.8 H, Chloride 116 H, Carbon Dioxide 20.0 L, Anion Gap 4 L, BUN 54 H, Creatinine 1.40 H, Estim Creat Clear Calc 30.42, Est GFR (MDRD) Af Amer 48 L, Est GFR (MDRD) Non-Af 40 L, BUN/Creatinine Ratio 38.6 H, Glucose 101, Calcium 9.1 Micro: Microbiology 10/02/23 06:20 Urine, Catheterized Urine Culture - Final Presumptive E. coli 10/02/23 13:18 Mucosa - Nasopharyngeal SARS-CoV-2, Influenza & RSV (PCR) - Final SARS-CoV-2 (COVID 19 PCR) Physical Exam Narrative GENERAL: Cooperative HEENT: Atraumatic; normocephalic EYES; Anicteric, Normal Conjunctiva NECK; supple, normal thyroid, RESPIRATORY: Diminished to auscultation CARDIOVASCULAR: Regular S1 S2, GI: soft, normoactive bowel sounds, : No Renal angle tenderness; EXTREMITIES: No edema, no clubbing, MUSCULOSKELETAL: no muscle wasting NEURO: Awake; no lateralizing signs. SKIN: No Rash PSYCH; flat affect Assessment & Plan Assessment/Plan (1) Encephalopathy: (2) Septic shock: (3) Hyperkalemia: (4) Acute cystitis: QUALIFIERS: Hematuria presence: without hematuria Qualified Code(s): N30.00 - Acute cystitis without hematuria PLAN: Plan Patient is a 68-year-old female with multiple comorbidities resident [facility] was brought to the emergency department with acute encephalopathy 1. Acute metabolic encephalopathy ? Secondary to septic shock from UTI patient has been admitted to the intensive care unit for treatment of underlying condition ? 10/03/2023; acute encephalopathy resolved patient back to baseline 2. Septic shock ? Secondary to acute cystitis. Patient was resuscitated with IV fluid without much response necessitating patient being started on pressor support with Levophed. Patient was started on broad-spectrum antibiotic therapy after cultures have been obtained. Patient response to therapy being monitored with serial lactic acid levels as well as response to blood pressure. ? 10/03/2023; patient was weaned off Levophed after arriving in the ICU ? 10/04/2023; urine cultures came back positive for E. coli patient on appropriate antibiotic therapy. Blood cultures pending 3. Acute kidney injury ? Superimposed on chronic kidney disease stage III. Patient baseline creatinine ranges from 1.5-1.6. Creatinine on admission was 2.75. Potential nephrotoxic medications held patient resuscitated with IV fluid with subsequent serial monitoring of electrolytes ordered ? 10/03/2023; creatinine down to 1.55 ? 10/04/2023; creatinine down to 1.4 4. Hyperkalemia ? Secondary to acute kidney injury, repeat labs ordered and if still elevated patient to be treated with Kayexalate ? 10/03/2023; patient did not require Kayexalate, potassium down to 5.2 ? 10/04/2023; calcium up to 5.8 patient given 30 g of Kayexalate repeat potassium ordered for later on in the day 5. Recent diagnosis of submassive PE with right ventricular strain ? Patient is on apixaban continue 6. Essential hypertension ? Patient blood pressure low on admission her antihypertensives held 7. Depression ? Patient psychotropic medications held in view of her significant encephalopathy 8. Class III obesity with BMI of 44.6 ? Complicating care 9. Diabetes mellitus type 2 ? Patient oral hypoglycemic agent held did continue with her antihypertensives 10. Anemia - Secondary to chronic disorder monitoring H&H and transfuse if patient becomes symptomatic or hemoglobin falls below 7 11. DVT prophylaxis ? Patient is on apixaban Time spent in the patient's overall evaluation,decision-making process, review of diagnostic data, adjustment of management, discussion with other providers, nursing nursing and ancillary staff involved in patient's care documentation 50 Minutes Charges/Coding Visit Charges Inpatient E&M: 20990 [facility] Hosp L3
[2023-10-04] MEDS: Aspirin E.C. 81 MG Tablet PO (08:44)
[2023-10-04] MEDS: Ursodiol 250 MG Tablet PO (08:44)
[2023-10-04] MEDS: Pantoprazole Sodium 40 MG Tablet PO ×2 (08:44→21:06)
[2023-10-04] MEDS: Loratadine 10 MG Tablet PO (08:44)
[2023-10-04] MEDS: Ezetimibe 10 MG Tablet PO (08:44)
[2023-10-04] MEDS: Metoprolol Tartrate 25 MG Tablet 12.5 MG PO ×2 (08:44→21:05)
[2023-10-04] MEDS: Insulin Glargine-YFGN 100 UNIT/ML Pen 10 UNIT SC (08:45)
[2023-10-04] MEDS: APIXABAN 5 MG TABLET PO ×2 (08:45→21:06)
[2023-10-04] MEDS: Miconazole Nitrate 43 GM Bottle 1 APPLIC TOPICAL ×2 (08:49→21:06)
[2023-10-04] MEDS: Pregabalin 75 MG Capsule 150 MG PO ×2 (08:49→21:04)
[2023-10-04] MEDS: Ceftriaxone 1 GM/50 ML BAG IV (09:44)
[2023-10-04 11:35] LABS: Bedside Glucose 80 mg/dL (74-106)
[2023-10-04] MEDS: Sodium Polystyrene Sulfonate 15 GM/60 ML UDC 30 GM PO (12:32)
[2023-10-04 15:19] LABS: Bedside Glucose 96 mg/dL (74-106)
[2023-10-04 17:34] LABS: Potassium 5.4 mmol/L (3.5-5.1)
[2023-10-04] MEDS: Acetaminophen 325 MG Tablet 650 MG PO (21:04)
[2023-10-04] MEDS: Latanoprost 0.005% 1 Bottle 1 DRP OPHTHALMIC (21:06)
[2023-10-04 21:29] LABS: Bedside Glucose 107 mg/dL (74-106)
[2023-10-04 23:44] LABS: Bedside Glucose 111 mg/dL (74-106)
[2023-10-05] VITALS (11 sets, daily range): BP systolic 94–147; BP diastolic 51–94; PULSE 70–80; RESP 16–18; TEMP 36.6–37.4; O2SAT 85–96; BMI 42.4
[2023-10-05] MEDS: Acetaminophen 325 MG Tablet 650 MG PO ×2 (04:42→21:12)
[2023-10-05 04:46] LABS: Absolute Lymphocyte Count 1.61 X10^3/uL (0.83-4.51); Absolute Neutrophil Count 4.2 X10^3/uL (2.0-7.7); Basophil# 0.02 X10^3/uL; Basophil% 0.3 % (0-1); Eosinophil# 0.43 X10^3/uL; Eosinophils% 6.4 % (0-5); Hematocrit 35.2 % (37-47); Hemoglobin 11.1 g/dL (12.0-15.0); Lymphocyte # 1.61 X10^3/ul (0.83-4.51); Lymphocyte % 23.8 % (19-41); Mean Corp Hgb Conc 31.5 g/dL (32-36); Mean Corpuscular Hgb 28.8 pg (27.0-32.0); Mean Corpuscular Volume 91.4 fL (81-99); Mean Platelet Vol. 11.6 fl (6.2-12.0); Monocyte% 7.4 % (0-10); NRBC Flagged by Analyzer 0 % (0-5); Neutrophil # 4.18 X10^3/uL (2.7-7.7); Neutrophil % 61.8 % (47-70); Platelet Count 215 K/mm3 (150-450); RBC Distribution Width SD 50.5 fl (35.1-43.9); Red Blood Count 3.85 M/mm3 (4.2-5.4); White Blood Count 6.8 K/mm3 (4.4-11.0)
[2023-10-05 05:08] LABS: Anion Gap 3 (5-15); BUN 42 mg/dL (7-18); BUN/Creat Ratio 31.3 RATIO (10-20); Chloride 112 mmol/L (98-107); Creatinine, Serum 1.34 mg/dL (0.55-1.02); EST Glomerular Filtration Rate 42 mL/min (>60); Est Glom Filt Rate - Afr Amer 51 mL/min (>60); Estimated Creatinine Clearance 45.76 ml/min; Glucose 133 mg/dL (74-106); Potassium 4.9 mmol/L (3.5-5.1); Sodium Level 139 mmol/L (136-145)
--- NOTE | 2023-10-05 07:30 | PN.HOSP_ITS ---
Reason for Visit Reason for Visit: Diagnoses Sepsis, unspecified organism (10/02/23) Hyperkalemia (10/02/23) Encephalopathy, unspecified (10/02/23) Other pulmonary embolism without acute cor pulmonale (10/02/23) Acute cystitis without hematuria (10/02/23) Altered mental status, unspecified (10/02/23) Severe sepsis with septic shock (10/02/23) Subjective Subjective Patient seen potassium levels improved. Kidney function also improved. Plan is for patient to be assessed for possible discharge Objective Data Objective Data Vital Signs: Vital Signs Temp Pulse Resp BP Pulse Ox O2 Del Method O2 Flow Rate 99.4 F H 77 17 94/51 L 93 Room Air 4 10/05/23 02:00 10/05/23 02:00 10/05/23 02:00 10/05/23 02:00 10/05/23 02:00 10/05/23 02:00 10/02/23 04:14 Oxygen Flow Rate (L/min) 4 Oxygen Delivery Method Room Air Weight: 105.2 kg Body Mass Index (BMI) 42.4 Intake & Output: Intake and Output for Last 24 Hours 10/03/23 10/04/23 10/05/23 23:59 23:59 23:59 Intake Total 2301.25 / 2301.25 1261.25 / 1261.25 500 / 500 Output Total 2035 / 2035 1350 / 1350 1100 / 1100 Balance 266.25 / 266.25 -88.75 / -88.75 -600 / -600 Lab / Micro Data 10/05/23 04:35 10/05/23 04:35 Labs: Laboratory Results - last 24 hr 10/04/23 05:32: POC Glucose 96 10/04/23 11:11: POC Glucose 80 10/04/23 16:50: Potassium 5.4 H 10/04/23 17:07: POC Glucose 111 H 10/04/23 21:01: POC Glucose 107 H 10/05/23 04:35: WBC 6.8, RBC 3.85 L, Hgb 11.1 L, Hct 35.2 L, MCV 91.4, MCH 28.8, MCHC 31.5 L, RDW Std Deviation 50.5 H, RDW Coeff of Paulo 15.0 H, Plt Count 215, MPV 11.6, Immature Gran % (Auto) 0.300, Neut % (Auto) 61.8, Lymph % (Auto) 23.8, [place] % (Auto) 7.4, Eos % (Auto) 6.4 H, Baso % (Auto) 0.3, Absolute Neuts (auto) 4.2, Absolute Lymphs (auto) 1.61, Nucleated RBC % 0, Sodium 139, Potassium 4.9, Chloride 112 H, Carbon Dioxide 24.0, Anion Gap 3 L, BUN 42 H, Creatinine 1.34 H, Estim Creat Clear Calc 45.76, Est GFR (MDRD) Af Amer 51 L, Est GFR (MDRD) Non-Af 42 L, BUN/Creatinine Ratio 31.3 H, Glucose 133 H, Calcium 10.0 Micro: Microbiology 10/02/23 06:20 Urine, Catheterized Urine Culture - Final Presumptive E. coli 10/02/23 13:18 Mucosa - Nasopharyngeal SARS-CoV-2, Influenza & RSV (PCR) - Final SARS-CoV-2 (COVID 19 PCR) Physical Exam Narrative GENERAL: Cooperative HEENT: Atraumatic; normocephalic EYES; Anicteric, Normal Conjunctiva NECK; supple, normal thyroid, RESPIRATORY: Diminished to auscultation CARDIOVASCULAR: Regular S1 S2, GI: soft, normoactive bowel sounds, : No Renal angle tenderness; EXTREMITIES: No edema, no clubbing, MUSCULOSKELETAL: no muscle wasting NEURO: Awake; no lateralizing signs. SKIN: No Rash PSYCH; flat affect Assessment & Plan Assessment/Plan (1) Encephalopathy: (2) Septic shock: (3) Hyperkalemia: (4) Acute cystitis: QUALIFIERS: Hematuria presence: without hematuria Qualified Code(s): N30.00 - Acute cystitis without hematuria PLAN: Plan Patient is a 68-year-old female with multiple comorbidities [facility] was brought to the emergency department with acute encephalopathy 1. Acute metabolic encephalopathy ? Secondary to septic shock from UTI patient has been admitted to the intensive care unit for treatment of underlying condition ? 10/03/2023; acute encephalopathy resolved patient back to baseline 2. Septic shock ? Secondary to acute cystitis. Patient was resuscitated with IV fluid without much response necessitating patient being started on pressor support with Levophed. Patient was started on broad-spectrum antibiotic therapy after cultures have been obtained. Patient response to therapy being monitored with serial lactic acid levels as well as response to blood pressure. ? 10/03/2023; patient was weaned off Levophed after arriving in the ICU ? 10/04/2023; urine cultures came back positive for E. coli patient on appropriate antibiotic therapy. Blood cultures pending 3. Acute kidney injury ? Superimposed on chronic kidney disease stage III. Patient baseline creatinine ranges from 1.5-1.6. Creatinine on admission was 2.75. Potential nephrotoxic medications held patient resuscitated with IV fluid with subsequent serial monitoring of electrolytes ordered ? 10/03/2023; creatinine down to 1.55 ? 10/04/2023; creatinine down to 1.4 4. Hyperkalemia ? Secondary to acute kidney injury, repeat labs ordered and if still elevated patient to be treated with Kayexalate ? 10/03/2023; patient did not require Kayexalate, potassium down to 5.2 ? 10/04/2023; calcium up to 5.8 patient given 30 g of Kayexalate repeat potassium ordered for later on in the day ? 10/05/2023; hyperkalemia resolved 5. Recent diagnosis of submassive PE with right ventricular strain ? Patient is on apixaban continue 6. Essential hypertension ? Patient blood pressure low on admission her antihypertensives held 7. Depression ? Patient psychotropic medications held in view of her significant encephalopathy 8. Class III obesity with BMI of 44.6 ? Complicating care 9. Diabetes mellitus type 2 ? Patient oral hypoglycemic agent held did continue with her antihypertensives 10. Anemia - Secondary to chronic disorder monitoring H&H and transfuse if patient becomes symptomatic or hemoglobin falls below 7 11. DVT prophylaxis ? Patient is on apixaban Time spent in the patient's overall evaluation,decision-making process, review of diagnostic data, adjustment of management, discussion with other providers, nursing nursing and ancillary staff involved in patient's care documentation 50 Minutes Charges/Coding Visit Charges Inpatient E&M: 09597 Subs Hosp L2
--- NOTE | 2023-10-05 07:38 | PCM.DC.SUM ---
Providers Date of Admission: 10/02/23 Date of Discharge: 10/05/23 Primary Care Physician: Dr. Rizwan Clark MD Consultations 10/02/23 11:24 Consult: Quantitative Analyst / Pulmonary Medicine Routine Consulting Provider: Pulmonary Medicine kaden Ceballos Reason for Consult: septic shock EMERGENT Consult: No MD Notified: Yes Date Notified: 10/02/23 Time Notified: 10:02 Method of Notification: Text Reason For Visit: SEPTIC SHOCK Diagnosis Discharge Diagnosis (1) Encephalopathy: Status: Acute Code(s): G93.40 - Encephalopathy, unspecified (2) Septic shock: Status: Acute Code(s): A41.9 - Sepsis, unspecified organism; R65.21 - Severe sepsis with septic shock (3) Hyperkalemia: Status: Acute Code(s): E87.5 - Hyperkalemia (4) Acute cystitis: Status: Acute Code(s): N30.00 - Acute cystitis without hematuria Qualifiers: Hematuria presence: without hematuria Qualified Code(s): N30.00 - Acute cystitis without hematuria Plan Patient is a 68-year-old female with multiple comorbidities resident of [facility] was brought to the emergency department with acute encephalopathy 1. Acute metabolic encephalopathy ? Secondary to septic shock from UTI patient has been admitted to the intensive care unit for treatment of underlying condition ? 10/03/2023; acute encephalopathy resolved patient back to baseline 2. Septic shock ? Secondary to acute cystitis. Patient was resuscitated with IV fluid without much response necessitating patient being started on pressor support with Levophed. Patient was started on broad-spectrum antibiotic therapy after cultures have been obtained. Patient response to therapy being monitored with serial lactic acid levels as well as response to blood pressure. ? 10/03/2023; patient was weaned off Levophed after arriving in the ICU ? 10/04/2023; urine cultures came back positive for E. coli patient on appropriate antibiotic therapy. Blood cultures pending 3. Acute kidney injury ? Superimposed on chronic kidney disease stage III. Patient baseline creatinine ranges from 1.5-1.6. Creatinine on admission was 2.75. Potential nephrotoxic medications held patient resuscitated with IV fluid with subsequent serial monitoring of electrolytes ordered ? 10/03/2023; creatinine down to 1.55 ? 10/04/2023; creatinine down to 1.4 4. Hyperkalemia ? Secondary to acute kidney injury, repeat labs ordered and if still elevated patient to be treated with Kayexalate ? 10/03/2023; patient did not require Kayexalate, potassium down to 5.2 ? 10/04/2023; calcium up to 5.8 patient given 30 g of Kayexalate repeat potassium ordered for later on in the day ? 10/05/2023; hyperkalemia resolved was on lisinopril discontinued on discharge 5. Recent diagnosis of submassive PE with right ventricular strain ? Patient is on apixaban continue 6. Essential hypertension ? Patient blood pressure low on admission her antihypertensives held 7. Depression ? Patient psychotropic medications held in view of her significant encephalopathy 8. Class III obesity with BMI of 44.6 ? Complicating care 9. Diabetes mellitus type 2 ? Patient oral hypoglycemic agent held did continue with her antihypertensives 10. Anemia - Secondary to chronic disorder monitoring H&H and transfuse if patient becomes symptomatic or hemoglobin falls below 7 11. DVT prophylaxis ? Patient is on apixaban Time spent in the patient's overall evaluation,decision-making process, review of diagnostic data, adjustment of management, discussion with other providers, nursing nursing and ancillary staff involved in patient's care documentation 35 Minutes Medications at Discharge Home Medications CPAP #1 ea 09/24/20 aspirin 81 mg tablet,delayed release 81 mg PO DAILY heart health 09/24/20 blood pressure monitor (Blood Pressure Kit) #1 ea 09/24/20 blood sugar diagnostic (Accu-Chek Christi Plus test strips) #10 ea 09/24/20 blood-glucose meter #1 ea 09/24/20 lancets (Accu-Chek Softclix Lancets) #100 ea 09/24/20 latanoprost 0.005 % eye drops 1 drp ophthalmic (eye) QHS MACULAR DEGENRATION 02/24/21 simethicone 80 mg chewable tablet 80 mg PO 4X/DAY PRN Flatulence #30 tabs 12/07/21 vitamin E 268 mg (400 unit) capsule 800 unit PO DAILY vitamin #60 caps 02/08/22 Bilateral wrist splints #2 ea 06/07/22 Trulicity 4.5 mg/0.5 mL subcutaneous pen injector (dulaglutide) 4.5 mg (0.5 mL) subcut QWEEK diabetes #2 mL 07/27/22 pen needle, diabetic 32 gauge x 1/4 (Novofine 32) #200 ea 07/27/22 cholestyramine (with sugar) 4 gram oral powder 4 g PO DAILY digestion #348.6 grams 08/12/22 fluticasone propionate 50 mcg/actuation nasal spray,suspension 2 spray intranasal DAILY PRN PRN Nasal Congestion 09/06/22 pantoprazole 40 mg tablet,delayed release 40 mg PO BID reflux #180 tabs 01/04/23 ezetimibe 10 mg tablet (Zetia) 10 mg PO DAILY #60 tabs 02/28/23 insulin lispro 100 unit/mL subcutaneous pen (Humalog KwikPen (U-100) Insulin) 12 unit subcut TID 02/28/23 Jardiance 10 mg tablet (empagliflozin) 10 mg PO DAILY #30 tabs 03/14/23 denosumab 60 mg/mL subcutaneous syringe (Prolia) 60 mg subcut [id number] bone health #1 mL 03/17/23 insulin degludec 100 unit/mL (3 mL) subcutaneous pen (Tresiba FlexTouch U-100 insulin) 40 unit (0.4 mL) subcut QHS #36 mL 07/11/23 duloxetine 60 mg capsule,delayed release See Rx Instructions .Route .COMPLEX #180 caps 08/01/23 cholecalciferol (vitamin D3) 1,250 mcg (50,000 unit) capsule 1,250 mcg PO QWEEK vitamin #30 caps 08/22/23 loratadine 10 mg tablet 10 mg PO DAILY allergies #90 tabs 08/23/23 pregabalin 150 mg capsule 150 mg PO BID pain #180 caps 08/23/23 rimegepant 75 mg disintegrating tablet (Nurtec ODT) 75 mg PO DAILY PRN migraine headache #8 tabs 08/23/23 albuterol sulfate 90 mcg/actuation aerosol inhaler (Ventolin HFA) 1 - 2 puff inhalation Q4H PRN PRN Wheezing #1 inh 09/11/23 metoprolol tartrate 25 mg tablet 12.5 mg (1/2 x 25 mg) PO BID #30 tabs 09/22/23 apixaban 5 mg tablet (Eliquis) 5 mg PO BID 10/02/23 omega-3 250 al-gdp-xwf-lutein 2.5 mg-zeaxanthin 0.5 mg capsule 1 cap PO DAILY supplement 10/02/23 ursodiol 250 mg tablet 250 mg PO DAILY gallstones 10/02/23 linaclotide 145 mcg capsule (Linzess) 145 mcg PO .QAM BOWELS 10/03/23 amitriptyline 100 mg tablet 100 mg PO QHS sleep #180 tabs 10/05/23 cefdinir 300 mg capsule 300 mg PO BID #14 caps 10/05/23 Hospital Course Summary of Care Provided Minutes Spent on Discharge: 35 Physical Exam Narrative GENERAL: Cooperative HEENT: Atraumatic; normocephalic EYES; Anicteric, Normal Conjunctiva NECK; supple, normal thyroid, RESPIRATORY: Diminished to auscultation CARDIOVASCULAR: Regular S1 S2, GI: soft, normoactive bowel sounds, : No Renal angle tenderness; EXTREMITIES: No edema, no clubbing, MUSCULOSKELETAL: no muscle wasting NEURO: Awake; no lateralizing signs. SKIN: No Rash PSYCH; flat affect Weight / BMI Weight Weight: 105.2 kg Body Mass Index (BMI) 42.4 ABG / Lab / Microbiology Data 10/05/23 04:35 10/05/23 04:35 Laboratory: Laboratory Results - last 24 hr 10/04/23 05:32: POC Glucose 96 10/04/23 11:11: POC Glucose 80 10/04/23 16:50: Potassium 5.4 H 10/04/23 17:07: POC Glucose 111 H 10/04/23 21:01: POC Glucose 107 H 10/05/23 04:35: WBC 6.8, RBC 3.85 L, Hgb 11.1 L, Hct 35.2 L, MCV 91.4, MCH 28.8, MCHC 31.5 L, RDW Std Deviation 50.5 H, RDW Coeff of Paulo 15.0 H, Plt Count 215, MPV 11.6, Immature Gran % (Auto) 0.300, Neut % (Auto) 61.8, Lymph % (Auto) 23.8, [place] % (Auto) 7.4, Eos % (Auto) 6.4 H, Baso % (Auto) 0.3, Absolute Neuts (auto) 4.2, Absolute Lymphs (auto) 1.61, Nucleated RBC % 0, Sodium 139, Potassium 4.9, Chloride 112 H, Carbon Dioxide 24.0, Anion Gap 3 L, BUN 42 H, Creatinine 1.34 H, Estim Creat Clear Calc 45.76, Est GFR (MDRD) Af Amer 51 L, Est GFR (MDRD) Non-Af 42 L, BUN/Creatinine Ratio 31.3 H, Glucose 133 H, Calcium 10.0 Microbiology: Microbiology 10/02/23 06:20 Urine, Catheterized Urine Culture - Final Presumptive E. coli 10/02/23 13:18 Mucosa - Nasopharyngeal SARS-CoV-2, Influenza & RSV (PCR) - Final SARS-CoV-2 (COVID 19 PCR) D/C Instructions Discharge Diet: 1800 Calorie Control Diet Discharge Activity: Return to Normal Activity Call your doctor if you observe: Fever of 101 or Higher, Shortness of breath, Fainting spells and Chest pain Meaningful Use Info Meaningful Use Diagnoses (Choose all that apply): None applicable Discharge Plan Admission Admit Date/Time: 10/02/23 09:57 Attending Provider: Fernando Lindo Primary Care Provider: Rizwan Clark Discharge Orders/Prescriptions Prescriptions: New cefdinir 300 mg capsule 300 mg PO BID Qty: 14 0RF Continued (DME) lancets [Accu-Chek Softclix Lancets] Misc See Rx Instructions .ROUTE .MEDSUPPLY Qty: 100 Rx Instructions: As directed, Test 4 times daily before meals and at bedtime (DME) Accu-Chek Christi Plus test strp Strip See Rx Instructions .ROUTE .MEDSUPPLY Qty: 10 Rx Instructions: As directed; Test 4 times daily before meals and at bedtime (DME) CPAP See Rx Instructions .Route .MEDSUPPLY Qty: 1 Rx Instructions: 14 cm H2O (DME) blood-glucose meter Misc See Rx Instructions .ROUTE .MEDSUPPLY Qty: 1 Rx Instructions: As directed (DME) blood pressure monitor [Blood Pressure Kit] Kit See Rx Instructions .ROUTE .MEDSUPPLY Qty: 1 Rx Instructions: As directed aspirin 81 mg tablet,delayed release (DR/EC) 81 mg PO DAILY latanoprost 0.005 % drops 1 drp ophthalmic (eye) QHS vitamin E 400 unit capsule 800 unit PO DAILY Qty: 60 5RF (DME) pen needle, diabetic [Novofine 32] 32 gauge x 1/4 needle See Rx Instructions .ROUTE .MEDSUPPLY Qty: 200 6RF Rx Instructions: As directed; 4x/day Trulicity 4.5 mg/0.5 mL pen injector 4.5 mg subcut QWEEK Qty: 2 4RF (DME) Bilateral wrist splints See Rx Instructions .Route .MEDSUPPLY Qty: 2 0RF Rx Instructions: As directed insulin lispro [Humalog KwikPen Insulin] 100 unit/mL insulin pen 12 unit subcut TID Rx Instructions: 12u with meals, 6u with snacks. +SSI 180-210+2; 211-240+3; 241-300+5; >300 +7 MDD 50 pantoprazole 40 mg tablet,delayed release (DR/EC) 40 mg PO BID Qty: 180 1RF loratadine 10 mg tablet 10 mg PO DAILY Qty: 90 1RF Nurtec ODT 75 mg tablet,disintegrating 75 mg PO DAILY PRN (Reason: migraine headache) Qty: 8 5RF pregabalin 150 mg capsule 150 mg PO BID Qty: 180 1RF fluticasone propionate 50 mcg/actuation spray,suspension 2 spray INTRANASAL DAILY PRN PRN (Reason: Nasal Congestion) Rx Instructions: administer into each nostril albuterol sulfate [Ventolin HFA] 90 mcg/actuation HFA aerosol inhaler 1 - 2 puff inhalation Q4H PRN PRN (Reason: Wheezing) Qty: 1 0RF metoprolol tartrate 25 mg tablet 12.5 mg PO BID Qty: 30 1RF ursodiol 250 mg tablet 250 mg PO DAILY Eliquis 5 mg Tablet 5 mg PO BID [id number]-keqmrnuiga 250-2.5-0.5 mg capsule 1 cap PO DAILY Linzess 145 mcg capsule 145 mcg PO .QAM Patient Comments: TAKE 1 CAPSULE BY MOUTH IN THE MORNING simethicone 80 mg tablet,chewable 80 mg PO 4X/DAY PRN (Reason: Flatulence) Qty: 30 1RF cholestyramine (with sugar) 4 gram powder 4 g PO DAILY Qty: 348.6 0RF Rx Instructions: administer w/meal; avoid other meds within 1hr before or 4-6hr after dose ezetimibe [Zetia] 10 mg tablet 10 mg PO DAILY Qty: 60 2RF Jardiance 10 mg tablet 10 mg PO DAILY Qty: 30 6RF Prolia 60 mg/mL syringe 60 mg subcut [id number] Qty: 1 0RF Tresiba FlexTouch U-100 100 unit/mL (3 mL) insulin pen 40 unit SC QHS Qty: 36 1RF duloxetine 60 mg capsule,delayed release(DR/EC) See Rx Instructions .ROUTE .COMPLEX Qty: 180 1RF Dose Instruction: TAKE 2 CAPSULES BY MOUTH DAILY Rx Instructions: TAKE 2 CAPSULES BY MOUTH DAILY cholecalciferol (vitamin D3) 1,250 mcg (50,000 unit) capsule 1,250 mcg PO QWEEK Qty: 30 1RF Changed amitriptyline 100 mg tablet 100 mg PO QHS Qty: 180 1RF Discontinued buspirone 10 mg tablet 10 mg PO TID Qty: 270 1RF cyclobenzaprine 10 mg tablet 5 - 10 mg PO TID PRN (Reason: muscle spasm) Qty: 270 1RF lisinopril 2.5 mg tablet See Rx Instructions .ROUTE .COMPLEX Qty: 90 2RF Dose Instruction: TAKE 1 TABLET BY MOUTH EVERY DAY Rx Instructions: TAKE 1 TABLET BY MOUTH EVERY DAY Referrals / Follow Up: Rizwan Clark MD [Primary Care Provider] - Within 2 Weeks Disposition Disposition (needs filled in before D/C Order can be placed): Nursing Home Facility Charges/Coding Visit Charges Inpatient E&M: 48550 Disch Hosp >30min
--- NOTE | 2023-10-05 08:03 | CASEMGMT ---
Patient needs a pre-cert to return to [facility]. Therapy was not ordered. SW just noticed and ordered therapy. Katrin Dan DIRECTOR OF [employer]
[2023-10-05 08:14] LABS: Bedside Glucose 97 mg/dL (74-106)
[2023-10-05] MEDS: Aspirin E.C. 81 MG Tablet PO (08:23)
[2023-10-05] MEDS: APIXABAN 5 MG TABLET PO ×2 (08:23→21:02)
[2023-10-05] MEDS: Insulin Glargine-YFGN 100 UNIT/ML Pen 10 UNIT SC (08:23)
[2023-10-05] MEDS: Loratadine 10 MG Tablet PO (08:23)
[2023-10-05] MEDS: Miconazole Nitrate 43 GM Bottle 1 APPLIC TOPICAL ×2 (08:23→21:02)
[2023-10-05] MEDS: Metoprolol Tartrate 25 MG Tablet 12.5 MG PO ×2 (08:24→21:02)
[2023-10-05] MEDS: Ezetimibe 10 MG Tablet PO (08:25)
[2023-10-05] MEDS: Ursodiol 250 MG Tablet PO (08:25)
[2023-10-05] MEDS: 0.9% Saline Lock 10 ML Syringe IV (08:25)
[2023-10-05] MEDS: Pantoprazole Sodium 40 MG Tablet PO ×2 (08:25→21:02)
[2023-10-05] MEDS: Pregabalin 75 MG Capsule 150 MG PO ×2 (08:27→21:12)
[2023-10-05] MEDS: Ceftriaxone 1 GM/50 ML BAG IV (08:27)
--- NOTE | 2023-10-05 10:36 | CASEMGMT ---
Therapy saw patient. SW sent PT/OT evals to [facility] and asked that they start pre-cert. Katrin Dan [employer]
[2023-10-05 12:10] LABS: Bedside Glucose 99 mg/dL (74-106)
[2023-10-05 17:19] LABS: Bedside Glucose 98 mg/dL (74-106)
--- NOTE | 2023-10-05 20:52 | CPS ---
Pt refused PAP therapy for the night.
[2023-10-05] MEDS: Latanoprost 0.005% 1 Bottle 1 DRP OPHTHALMIC (21:03)
[2023-10-05 21:28] LABS: Bedside Glucose 70 mg/dL (74-106)
[2023-10-06] VITALS (7 sets, daily range): BP systolic 107–128; BP diastolic 66–90; PULSE 66–81; RESP 16–18; TEMP 35.8–36.9; O2SAT 95–99; BMI 42.5
[2023-10-06 03:40] LABS: Absolute Lymphocyte Count 1.91 X10^3/uL (0.83-4.51); Absolute Neutrophil Count 4.4 X10^3/uL (2.0-7.7); Basophil# 0.02 X10^3/uL; Basophil% 0.3 % (0-1); Eosinophil# 0.57 X10^3/uL; Eosinophils% 7.7 % (0-5); Hematocrit 34.9 % (37-47); Hemoglobin 10.7 g/dL (12.0-15.0); Lymphocyte # 1.91 X10^3/ul (0.83-4.51); Mean Corp Hgb Conc 30.7 g/dL (32-36); Mean Corpuscular Hgb 28.2 pg (27.0-32.0); Mean Corpuscular Volume 92.1 fL (81-99); Mean Platelet Vol. 11.7 fl (6.2-12.0); Monocyte# 0.47 X10^3/uL; Monocyte% 6.4 % (0-10); NRBC Flagged by Analyzer 0 % (0-5); Neutrophil # 4.37 X10^3/uL (2.7-7.7); Neutrophil % 59.3 % (47-70); Platelet Count 216 K/mm3 (150-450); RBC Distribution Width CV 14.9 % (11.6-14.6); RBC Distribution Width SD 50.4 fl (35.1-43.9); Red Blood Count 3.79 M/mm3 (4.2-5.4); White Blood Count 7.4 K/mm3 (4.4-11.0)
[2023-10-06 03:53] LABS: Anion Gap 3 (5-15); BUN 40 mg/dL (7-18); BUN/Creat Ratio 32.8 RATIO (10-20); Calcium,Total 10.4 mg/dL (8.5-10.1); Chloride 109 mmol/L (98-107); Creatinine, Serum 1.22 mg/dL (0.55-1.02); EST Glomerular Filtration Rate 47 mL/min (>60); Est Glom Filt Rate - Afr Amer 56 mL/min (>60); Estimated Creatinine Clearance 50.26 ml/min; Glucose 136 mg/dL (74-106); Potassium 4.5 mmol/L (3.5-5.1); Sodium Level 138 mmol/L (136-145)
[2023-10-06 06:33] LABS: Bedside Glucose 109 mg/dL (74-106)
--- NOTE | 2023-10-06 07:19 | PN.HOSP_ITS ---
Reason for Visit Reason for Visit: Diagnoses Sepsis, unspecified organism (10/02/23) Hyperkalemia (10/02/23) Encephalopathy, unspecified (10/02/23) Other pulmonary embolism without acute cor pulmonale (10/02/23) Acute cystitis without hematuria (10/02/23) Altered mental status, unspecified (10/02/23) Severe sepsis with septic shock (10/02/23) Subjective Subjective Seen kidney function continues to improve creatinine down to 1.22. Awaiting ins urance precertification prior to transfer back to his senior care facility Objective Data Objective Data Vital Signs: Vital Signs Temp Pulse Resp BP Pulse Ox O2 Del Method O2 Flow Rate
--- NOTE | 2023-10-06 07:19 | PCM.PN.HOSP ---
Reason for Visit Reason for Visit: Diagnoses Sepsis, unspecified organism (10/02/23) Hyperkalemia (10/02/23) Encephalopathy, unspecified (10/02/23) Other pulmonary embolism without acute cor pulmonale (10/02/23) Acute cystitis without hematuria (10/02/23) Altered mental status, unspecified (10/02/23) Severe sepsis with septic shock (10/02/23) Subjective Subjective Seen kidney function continues to improve creatinine down to 1.22. Awaiting insurance precertification prior to transfer back to his care home facility Objective Data Objective Data Vital Signs: Vital Signs Temp Pulse Resp BP Pulse Ox O2 Del Method O2 Flow Rate 98.5 F 66 16 112/66 98 Nasal Cannula 2 10/06/23 03:30 10/06/23 03:30 10/06/23 03:30 10/06/23 03:30 10/06/23 03:30 10/06/23 04:34 10/06/23 04:34 Oxygen Flow Rate (L/min) 2 Oxygen Delivery Method Nasal Cannula Weight: 105.5 kg Body Mass Index (BMI) 42.5 Intake & Output: Intake and Output for Last 24 Hours 10/04/23 10/05/23 10/06/23 23:59 23:59 23:59 Intake Total 1261.25 / 1261.25 1510 / 1510 Output Total 1350 / 1350 2525 / 2525 Balance -88.75 / -88.75 -1015 / -1015 Lab / Micro Data 10/06/23 03:25 10/06/23 03:25 Labs: Laboratory Results - last 24 hr 10/05/23 07:52: POC Glucose 97 10/05/23 11:51: POC Glucose 99 10/05/23 17:01: POC Glucose 98 10/05/23 21:05: POC Glucose 70 L 10/06/23 03:25: WBC 7.4, RBC 3.79 L, Hgb 10.7 L, Hct 34.9 L, MCV 92.1, MCH 28.2, MCHC 30.7 L, RDW Std Deviation 50.4 H, RDW Coeff of Paulo 14.9 H, Plt Count 216, MPV 11.7, Immature Gran % (Auto) 0.300, Neut % (Auto) 59.3, Lymph % (Auto) 26.0, [place] % (Auto) 6.4, Eos % (Auto) 7.7 H, Baso % (Auto) 0.3, Absolute Neuts (auto) 4.4, Absolute Lymphs (auto) 1.91, Nucleated RBC % 0, Sodium 138, Potassium 4.5, Chloride 109 H, Carbon Dioxide 26.0, Anion Gap 3 L, BUN 40 H, Creatinine 1.22 H, Estim Creat Clear Calc 50.26, Est GFR (MDRD) Af Amer 56 L, Est GFR (MDRD) Non-Af 47 L, BUN/Creatinine Ratio 32.8 H, Glucose 136 H, Calcium 10.4 H 10/06/23 06:16: POC Glucose 109 H Micro: Microbiology 10/02/23 06:20 Urine, Catheterized Urine Culture - Final Presumptive E. coli 10/02/23 13:18 Mucosa - Nasopharyngeal SARS-CoV-2, Influenza & RSV (PCR) - Final SARS-CoV-2 (COVID 19 PCR) Physical Exam Narrative GENERAL: Cooperative HEENT: Atraumatic; normocephalic EYES; Anicteric, Normal Conjunctiva NECK; supple, normal thyroid, RESPIRATORY: Diminished to auscultation CARDIOVASCULAR: Regular S1 S2, GI: soft, normoactive bowel sounds, : No Renal angle tenderness; EXTREMITIES: No edema, no clubbing, MUSCULOSKELETAL: no muscle wasting NEURO: Awake; no lateralizing signs. SKIN: No Rash PSYCH; flat affect Assessment & Plan Assessment/Plan (1) MARIO (acute kidney injury): PLAN: Plan Patient is a 68-year-old female with multiple comorbidities resident of [facility] was brought to the emergency department with acute encephalopathy 1. Acute metabolic encephalopathy ? Secondary to septic shock from UTI patient has been admitted to the intensive care unit for treatment of underlying condition ? 10/03/2023; acute encephalopathy resolved patient back to baseline 2. Septic shock ? Secondary to acute cystitis. Patient was resuscitated with IV fluid without much response necessitating patient being started on pressor support with Levophed. Patient was started on broad-spectrum antibiotic therapy after cultures have been obtained. Patient response to therapy being monitored with serial lactic acid levels as well as response to blood pressure. ? 10/03/2023; patient was weaned off Levophed after arriving in the ICU ? 10/04/2023; urine cultures came back positive for E. coli patient on appropriate antibiotic therapy. Blood cultures pending 3. Acute kidney injury ? Superimposed on chronic kidney disease stage III. Patient baseline creatinine ranges from 1.5-1.6. Creatinine on admission was 2.75. Potential nephrotoxic medications held patient resuscitated with IV fluid with subsequent serial monitoring of electrolytes ordered ? 10/03/2023; creatinine down to 1.55 ? 10/04/2023; creatinine down to 1.4 9 ?1 08/15/2024; creatinine down to 1.22 4. Hyperkalemia ? Secondary to acute kidney injury, repeat labs ordered and if still elevated patient to be treated with Kayexalate ? 10/03/2023; patient did not require Kayexalate, potassium down to 5.2 ? 10/04/2023; calcium up to 5.8 patient given 30 g of Kayexalate repeat potassium ordered for later on in the day ? 10/05/2023; hyperkalemia resolved ? 10/06/2023; potassium down to 4.5 5. Recent diagnosis of submassive PE with right ventricular strain ? Patient is on apixaban continue 6. Essential hypertension ? Patient blood pressure low on admission her antihypertensives held 7. Depression ? Patient psychotropic medications held in view of her significant encephalopathy 8. Class III obesity with BMI of 44.6 ? Complicating care 9. Diabetes mellitus type 2 ? Patient oral hypoglycemic agent held did continue with her antihypertensives 10. Anemia - Secondary to chronic disorder monitoring H&H and transfuse if patient becomes symptomatic or hemoglobin falls below 7 11. DVT prophylaxis ? Patient is on apixaban 12. Physical deconditioning - Requested for PT OT eval and case management social worker to assist with discharge planning Time spent in the patient's overall evaluation,decision-making process, review of diagnostic data, adjustment of management, discussion with other providers, nursing nursing and ancillary staff involved in patient's care documentation 35 Minutes Charges/Coding Visit Charges Inpatient E&M: 44530 Subs Hosp L2
[2023-10-06] MEDS: APIXABAN 5 MG TABLET PO (09:11)
[2023-10-06] MEDS: Loratadine 10 MG Tablet PO (09:11)
[2023-10-06] MEDS: Aspirin E.C. 81 MG Tablet PO (09:11)
[2023-10-06] MEDS: Miconazole Nitrate 43 GM Bottle 1 APPLIC TOPICAL (09:11)
[2023-10-06] MEDS: Ursodiol 250 MG Tablet PO (09:11)
[2023-10-06] MEDS: Pantoprazole Sodium 40 MG Tablet PO (09:11)
[2023-10-06] MEDS: Insulin Glargine-YFGN 100 UNIT/ML Pen 10 UNIT SC (09:12)
[2023-10-06] MEDS: Ezetimibe 10 MG Tablet PO (09:12)
[2023-10-06] MEDS: Metoprolol Tartrate 25 MG Tablet 12.5 MG PO (09:16)
[2023-10-06] MEDS: Pregabalin 75 MG Capsule 150 MG PO (09:16)
[2023-10-06] MEDS: Ceftriaxone 1 GM/50 ML BAG IV (09:23)
--- NOTE | 2023-10-06 10:42 | CASEMGMT ---
Discharge Planning [facility] has received precert. SW updated. Cherelle Vo, Discharge Planning Asst.
--- NOTE | 2023-10-06 10:58 | CASEMGMT ---
Patient was approved and will return to [facility] today. Plan: d/c back to [facility] under skilled level of care. Physicians will transport patient via wheelchair van. Katrin TAYLOR
--- NOTE | 2023-10-06 10:59 | DS.PCM_ITS ---
Providers Date of Admission: 10/02/23 Date of Discharge: 10/06/23 Primary Care Physician: Dr. Rizwan Clark MD Consultations 10/02/23 11:24 Consult: Central Control Room Operator / Pulmonary Medicine Routine Consulting Provider: Pulmonary Medicine kaden Ceballos Reason for Consult: septic shock EMERGENT Consult: No MD Notified: Yes Date Notified: 10/02/23 Time Notified: 10:02 Method of Notification: Text Reason For Visit: SEPTIC SHOCK Diagnosis Discharge Diagnosis (1) MARIO (acute kidney injury): Status: Acute Code(s): N17.9 - Acute kidney failure, unspecified Plan Patient is a 68-year-old female with multiple comorbidities resident of [facility] was brought to the emergency department with acute encephalopathy 1. Acute metabolic encephalopathy ? Secondary to septic shock from UTI patient has been admitted to the intensive care unit for treatment of underlying condition ? 10/03/2023; acute encephalopathy resolved patient back to baseline 2. Septic shock ? Secondary to acute cystitis. Patient was resuscitated with IV fluid without much response necessitating patient being started on pressor support with Levophed. Patient was started on broad-spectrum antibiotic therapy after cultures have been obtained. Patient response to therapy being monitored with serial lactic acid levels as well as response to blood pressure. ? 10/03/2023; patient was weaned off Levophed after arriving in the ICU ? 10/04/2023; urine cultures came back positive for E. coli patient on appropriate antibiotic therapy. Blood cultures pending 3. Acute kidney injury ? Superimposed on chronic kidney disease stage III. Patient baseline creatinine ranges from 1.5-1.6. Creatinine on admission was 2.75. Potential nephrotoxic medications held patient resuscitated with IV fluid with subsequent serial monitoring of electrolytes ordered ? 10/03/2023; creatinine down to 1.55 ? 10/04/2023; creatinine down to 1.4 9 ?1 08/15/2024; creatinine down to 1.22 4. Hyperkalemia ? Secondary to acute kidney injury, repeat labs ordered and if still elevated patient to be treated with Kayexalate ? 10/03/2023; patient did not require Kayexalate, potassium down to 5.2 ? 10/04/2023; calcium up to 5.8 patient given 30 g of Kayexalate repeat potassium ordered for later on in the day ? 10/05/2023; hyperkalemia resolved ? 10/06/2023; potassium down to 4.5 5. Recent diagnosis of submassive PE with right ventricular strain ? Patient is on apixaban continue 6. Essential hypertension ? Patient blood pressure low on admission her antihypertensives held 7. Depression ? Patient psychotropic medications held in view of her significant encephalopathy 8. Class III obesity with BMI of 44.6 ? Complicating care 9. Diabetes mellitus type 2 ? Patient oral hypoglycemic agent held did continue with her antihypertensives 10. Anemia - Secondary to chronic disorder monitoring H&H and transfuse if patient becomes symptomatic or hemoglobin falls below 7 11. DVT prophylaxis ? Patient is on apixaban 12. Physical deconditioning - Requested for PT OT eval and social worker masters to assist with discharge planning Time spent in the patient's overall evaluation,decision-making process, review of diagnostic data, adjustment of management, discussion with other providers, nursing nursing and ancillary staff involved in patient's care documentation 35 Minutes Medications at Discharge Home Medications CPAP #1 ea 09/24/20 aspirin 81 mg tablet,delayed release 81 mg PO DAILY heart health 09/24/20 blood pressure monitor (Blood Pressure Kit) #1 ea 09/24/20 blood sugar diagnostic (Accu-Chek Christi Plus test strips) #10 ea 09/24/20 blood-glucose meter #1 ea 09/24/20 lancets (Accu-Chek Softclix Lancets) #100 ea 09/24/20 latanoprost 0.005 % eye drops 1 drp ophthalmic (eye) QHS MACULAR DEGENRATION 02/24/21 simethicone 80 mg chewable tablet 80 mg PO 4X/DAY PRN Flatulence #30 tabs 12/07/21 vitamin E 268 mg (400 unit) capsule 800 unit PO DAILY vitamin #60 caps 02/08/22 Bilateral wrist splints #2 ea 06/07/22 Trulicity 4.5 mg/0.5 mL subcutaneous pen injector (dulaglutide) 4.5 mg (0.5 mL) subcut QWEEK diabetes #2 mL 07/27/22 pen needle, diabetic 32 gauge x 1/4 (Novofine 32) #200 ea 07/27/22 cholestyramine (with sugar) 4 gram oral powder 4 g PO DAILY digestion #348.6 grams 08/12/22 fluticasone propionate 50 mcg/actuation nasal spray,suspension 2 spray intranasal DAILY PRN PRN Nasal Congestion 09/06/22 pantoprazole 40 mg tablet,delayed release 40 mg PO BID reflux #180 tabs 01/04/23 ezetimibe 10 mg tablet (Zetia) 10 mg PO DAILY #60 tabs 02/28/23 insulin lispro 100 unit/mL subcutaneous pen (Humalog KwikPen (U-100) Insulin) 12 unit subcut TID 02/28/23 Jardiance 10 mg tablet (empagliflozin) 10 mg PO DAILY #30 tabs 03/14/23 denosumab 60 mg/mL subcutaneous syringe (Prolia) 60 mg subcut [id number] bone hea lth #1 mL 03/17/23 insulin degludec 100 unit/mL (3 mL) subcutaneous pen (Tresiba FlexTouch U-100 in sulin) 40 unit (0.4 mL) subcut QHS #36 mL 07/11/23 duloxetine 60 mg capsule,delayed release See Rx Instructions .Route .COMPLEX #180 caps 08/01/23 cholecalciferol (vitamin D3) 1,250 mcg (50,000 unit) capsule 1,250 mcg PO QWEEK vitamin #30 caps 08/22/23 loratadine 10 mg tablet 10 mg PO DAILY allergies #90 tabs 08/23/23 pregabalin 150 mg capsule 150 mg PO BID pain #180 caps 08/23/23 rimegepant 75 mg disintegrating tablet (Nurtec ODT) 75 mg PO DAILY PRN migraine headache #8 tabs 08/23/23 albuterol sulfate 90 mcg/actuation aerosol inhaler (Ventolin HFA) 1 - 2 puff inhalation Q4H PRN PRN Wheezing #1 inh 09/11/23 metoprolol tartrate 25 mg tablet 12.5 mg (1/2 x 25 mg) PO BID #30 tabs 09/22/23 apixaban 5 mg tablet (Eliquis) 5 mg PO BID 10/02/23 omega-3 250 sb-slk-ran-lutein 2.5 mg-zeaxanthin 0.5 mg capsule 1 cap PO DAILY supplement 10/02/23 ursodiol 250 mg tablet 250 mg PO DAILY gallstones 10/02/23 linaclotide 145 mcg capsule (Linzess) 145 mcg PO .QAM BOWELS 10/03/23 amitriptyline 100 mg tablet 100 mg PO QHS sleep #180 tabs 10/05/23 cefdinir 300 mg capsule 300 mg PO BID #14 caps 10/05/23 Hospital Course Summary of Care Provided Minutes Spent on Discharge: 35 Physical Exam Narrative GENERAL: Cooperative HEENT: Atraumatic; normocephalic EYES; Anicteric, Normal Conjunctiva NECK; supple, normal thyroid, RESPIRATORY: Diminished to auscultation CARDIOVASCULAR: Regular S1 S2, GI: soft, normoactive bowel sounds, : No Renal angle tenderness; EXTREMITIES: No edema, no clubbing, MUSCULOSKELETAL: no muscle wasting NEURO: Awake; no lateralizing signs. SKIN: No Rash PSYCH; flat affect Weight / BMI Weight Weight: 105.5 kg Body Mass Index (BMI) 42.5 ABG / Lab / Microbiology Data 10/06/23 03:25 10/06/23 03:25 Laboratory: Laboratory Results - last 24 hr 10/05/23 11:51: POC Glucose 99 10/05/23 17:01: POC Glucose 98 10/05/23 21:05: POC Glucose 70 L 10/06/23 03:25: WBC 7.4, RBC 3.79 L, Hgb 10.7 L, Hct 34.9 L, MCV 92.1, MCH 28.2, MCHC 30.7 L, RDW Std Deviation 50.4 H, RDW Coeff of Paulo 14.9 H, Plt Count 216, MPV 11.7, Immature Gran % (Auto) 0.300, Neut % (Auto) 59.3, Lymph % (Auto) 26.0, Toole % (Auto) 6.4, Eos % (Auto) 7.7 H, Baso % (Auto) 0.3, Absolute Neuts (auto) 4.4, Absolute Lymphs (auto) 1.91, Nucleated RBC % 0, Sodium 138, Potassium 4.5, Chloride 109 H, Carbon Dioxide 26.0, Anion Gap 3 L, BUN 40 H, Creatinine 1.22 H, Estim Creat Clear Calc 50.26, Est GFR (MDRD) Af Amer 56 L, Est GFR (MDRD) Non-Af 47 L, BUN/Creatinine Ratio 32.8 H, Glucose 136 H, Calcium 10.4 H 10/06/23 06:16: POC Glucose 109 H Microbiology: Microbiology 10/02/23 06:20 Urine, Catheterized Urine Culture - Final Presumptive E. coli 10/02/23 13:18 Mucosa - Nasopharyngeal SARS-CoV-2, Influenza & RSV (PCR) - Final SARS-CoV-2 (COVID 19 PCR) D/C Instructions Discharge Diet: 1800 Calorie Control Diet Discharge Activity: Return to Normal Activity Call your doctor if you observe: Fever of 101 or Higher, Shortness of breath, Fa inting spells and Chest pain Meaningful Use Info Meaningful Use Diagnoses (Choose all that apply): None applicable Discharge Plan Admission Admit Date/Time: 10/02/23 09:57 Attending Provider: Fernando Lindo Primary Care Provider: Rizwan Clark Discharge Orders/Prescriptions Prescriptions: New cefdinir 300 mg capsule 300 mg PO BID Qty: 14 0RF Continued (DME) lancets [Accu-Chek Softclix Lancets] Misc See Rx Instructions .ROUTE .MEDSUPPLY Qty: 100 Rx Instructions: As directed, Test 4 times daily before meals and at bedtime (DME) Accu-Chek Christi Plus test strp Strip See Rx Instructions .ROUTE .MEDSUPPLY Qty: 10 Rx Instructions: As directed; Test 4 times daily before meals and at bedtime (DME) CPAP See Rx Instructions .Route .MEDSUPPLY Qty: 1 Rx Instructions: 14 cm H2O (DME) blood-glucose meter Misc See Rx Instructions .ROUTE .MEDSUPPLY Qty: 1 Rx Instructions: As directed (DME) blood pressure monitor [Blood Pressure Kit] Kit See Rx Instructions .ROUTE .MEDSUPPLY Qty: 1 Rx Instructions: As directed aspirin 81 mg tablet,delayed release (DR/EC) 81 mg PO DAILY latanoprost 0.005 % drops 1 drp ophthalmic (eye) QHS vitamin E 400 unit capsule 800 unit PO DAILY Qty: 60 5RF (DME) pen needle, diabetic [Novofine 32] 32 gauge x 1/4 needle See Rx Instructions .ROUTE .MEDSUPPLY Qty: 200 6RF Rx Instructions: As directed; 4x/day Trulicity 4.5 mg/0.5 mL pen injector 4.5 mg subcut QWEEK Qty: 2 4RF (DME) Bilateral wrist splints See Rx Instructions .Route .MEDSUPPLY Qty: 2 0RF Rx Instructions: As directed insulin lispro [Humalog KwikPen Insulin] 100 unit/mL insulin pen 12 unit subcut TID Rx Instructions: 12u with meals, 6u with snacks. +SSI 180-210+2; 211-240+3; 241-300+5; >300 +7 MDD 50 pantoprazole 40 mg tablet,delayed release (DR/EC) 40 mg PO BID Qty: 180 1RF loratadine 10 mg tablet 10 mg PO DAILY Qty: 90 1RF Nurtec ODT 75 mg tablet,disintegrating 75 mg PO DAILY PRN (Reason: migraine headache) Qty: 8 5RF pregabalin 150 mg capsule 150 mg PO BID Qty: 180 1RF fluticasone propionate 50 mcg/actuation spray,suspension 2 spray INTRANASAL DAILY PRN PRN (Reason: Nasal Congestion) Rx Instructions: administer into each nostril albuterol sulfate [Ventolin HFA] 90 mcg/actuation HFA aerosol inhaler 1 - 2 puff inhalation Q4H PRN PRN (Reason: Wheezing) Qty: 1 0RF metoprolol tartrate 25 mg tablet 12.5 mg PO BID Qty: 30 1RF ursodiol 250 mg tablet 250 mg PO DAILY Eliquis 5 mg Tablet 5 mg PO BID [id number] 250-2.5-0.5 mg capsule 1 cap PO DAILY Linzess 145 mcg capsule 145 mcg PO .QAM Patient Comments: TAKE 1 CAPSULE BY MOUTH IN THE MORNING simethicone 80 mg tablet,chewable 80 mg PO 4X/DAY PRN (Reason: Flatulence) Qty: 30 1RF cholestyramine (with sugar) 4 gram powder 4 g PO DAILY Qty: 348.6 0RF Rx Instructions: administer w/meal; avoid other meds within 1hr before or 4-6hr after dose ezetimibe [Zetia] 10 mg tablet 10 mg PO DAILY Qty: 60 2RF Jardiance 10 mg tablet 10 mg PO DAILY Qty: 30 6RF Prolia 60 mg/mL syringe 60 mg subcut [id number] Qty: 1 0RF Tresiba FlexTouch U-100 100 unit/mL (3 mL) insulin pen 40 unit SC QHS Qty: 36 1RF duloxetine 60 mg capsule,delayed release(DR/EC) See Rx Instructions .ROUTE .COMPLEX Qty: 180 1RF Dose Instruction: TAKE 2 CAPSULES BY MOUTH DAILY Rx Instructions: TAKE 2 CAPSULES BY MOUTH DAILY cholecalciferol (vitamin D3) 1,250 mcg (50,000 unit) capsule 1,250 mcg PO QWEEK Qty: 30 1RF Changed amitriptyline 100 mg tablet 100 mg PO QHS Qty: 180 1RF Discontinued buspirone 10 mg tablet 10 mg PO TID Qty: 270 1RF cyclobenzaprine 10 mg tablet 5 - 10 mg PO TID PRN (Reason: muscle spasm) Qty: 270 1RF lisinopril 2.5 mg tablet See Rx Instructions .ROUTE .COMPLEX Qty: 90 2RF Dose Instruction: TAKE 1 TABLET BY MOUTH EVERY DAY Rx Instructions: TAKE 1 TABLET BY MOUTH EVERY DAY Referrals / Follow Up: Rizwan Clark MD [Primary Care Provider] - Within 2 Weeks Disposition Disposition (needs filled in before D/C Order can be placed): Care Home Facility Charges/Coding Visit Charges Inpatient E&M: 35478 Disch Hosp >30min
[2023-10-06] MEDS: Senna/Docusate Sodium 1 Tablet 2 TABLET PO ×2 (11:09→12:26)
--- NOTE | 2023-10-06 11:30 | NURSING ---
Report given to Manisha BASS, all questions and concerns answered.
[2023-10-06 11:43] LABS: Bedside Glucose 74 mg/dL (74-106)
--- NOTE | 2023-10-06 12:01 | CASEMGMT ---
Discharge Planning Discharge orders, signed med list, and transport time sent to [facility]. [facility] will transport patient by wheelchair at 1p. Nursing, SW, and patient updated. Cherelle Vo, Discharge Planning Asst.
[2023-10-14 15:35] LABS: Bedside Glucose 51 mg/dL (74-106)
== END 2023-10-06 14:15 | disposition skilled nursing facility (03) | DRG 871 ==
LOC: ED 07:18 → ICU 10:43
PROVIDERS: Admitting Provider Internal Medicine; Emergency Provider Emergency Medicine; PCP Family Medicine; Visit Provider Internal Medicine
DX: A41.51 Sepsis due to Escherichia coli [E. coli] (principal); R65.21 Severe sepsis with septic shock; G93.41 Metabolic encephalopathy; U07.1 COVID-19; Z68.41 Body mass index [BMI] 40.0-44.9, adult; N17.9 Acute kidney failure, unspecified; E11.22 Type 2 diabetes mellitus with diabetic chronic kidney disease; N18.30 Chronic kidney disease, stage 3 unspecified; E66.01 Morbid (severe) obesity due to excess calories; Z79.4 Long term (current) use of insulin; F32.A Depression, unspecified; I12.9 Hypertensive chronic kidney disease with stage 1 through stage 4 chronic kidney disease, or unspecified chronic kidney disease; K76.0 Fatty (change of) liver, not elsewhere classified; E87.5 Hyperkalemia; M79.7 Fibromyalgia; E78.00 Pure hypercholesterolemia, unspecified; M10.9 Gout, unspecified; R03.1 Nonspecific low blood-pressure reading; Z79.01 Long term (current) use of anticoagulants; Z79.82 Long term (current) use of aspirin; Z79.85 Long-term (current) use of injectable non-insulin antidiabetic drugs; Z86.711 Personal history of pulmonary embolism; Z86.73 Personal history of transient ischemic attack (TIA), and cerebral infarction without residual deficits
CPT/HCPCS: 36415; 36600; 70450; 71045; 72125; 80048; 80053; 80076; 81001; 82140; 82803; 82962; 83605; 83735; 84100; 84132; 84443; 84484; 85025; 85610; 85730; 87040; 87086; 87088; 87186; 87631; 93005; 94640; 94668; 94762; 97116; 97162; 97166; 99285; J7030; J7050; J7120; A4216

== ENCOUNTER 2023-11-01 10:57 | Inpatient (IN) | payer MEDICARE, SELFPAY ==
[2023-11-01] VITALS (7 sets, daily range): BP systolic 125–162; BP diastolic 81–97; PULSE 64–100; RESP 16; TEMP 36.3–36.8; O2SAT 94–99; BMI 41.5; BMI 44.0
--- NOTE | 2023-11-01 11:15 | EDS_ITS ---
HPI History of Present Illness Chief Complaint: Lower Extremity Injury Detail of Chief Complaint: Left ankle pain and swelling Informant: patient Narrative Narrative: Patient presents with left ankle pain and swelling that started last evening. Patient recalls getting into a car 3 days ago and had a losing her balance with catching herself. She did not fall. She did not have pain initially. She denies fevers or chills or sweats. She does have history of gout but normally gets pain in her great toe. Patient currently on Eliquis for history of DVT and PE. Patient has been compliant with her medications. [facility] Medical History Abnormal thyroid function test Anemia Anxiety Anxiety and depression Arthritis Back pain Bilateral lower extremity edema Blackout Chronic neck and back pain CKD (chronic kidney disease), stage III CPAP (continuous positive airway pressure) dependence Depression Diabetes Dietary restriction Difficulty balancing when standing Difficulty swallowing Dizziness Essential hypertension Fatigue Fatty liver Fibromyalgia Fibrosis of liver Flu vaccine need GERD (gastroesophageal reflux disease) Glaucoma Gout Hematuria High cholesterol History of echocardiogram History of pain when walking History of renal disease History of stress test History of thyroid nodule Hx of phlebitis Hyperlipidemia Insomnia Insulin dependent diabetes mellitus Leg cramps Limb weakness Liver disease Loss of hearing Lyme disease Macular degeneration Migraine headache Morbid obesity Myositis Non-smoker Obesity BENTLEY on CPAP Osteoporosis Polymyositis Restless legs Sensorineural hearing loss of both ears Shoulder pain Sinusitis Type 2 diabetes mellitus Vitamin D deficiency Wears glasses Home Medications CPAP #1 ea 09/24/20 [History Last Taken Unknown] aspirin 81 mg tablet,delayed release 81 mg PO DAILY heart health 09/24/20 [History Last Taken Unknown] blood pressure monitor (Blood Pressure Kit) #1 ea 09/24/20 [History Last Taken Unknown] blood sugar diagnostic (Accu-Chek Christi Plus test strips) #10 ea 09/24/20 [History Last Taken Unknown] blood-glucose meter #1 ea 09/24/20 [History Last Taken Unknown] lancets (Accu-Chek Softclix Lancets) #100 ea 09/24/20 [History Last Taken Unknown] latanoprost 0.005 % eye drops 1 drp ophthalmic (eye) QHS MACULAR DEGENRATION 02/24/21 [History Last Taken Unknown] simethicone 80 mg chewable tablet 80 mg PO 4X/DAY PRN Flatulence #30 tabs 03/14/22 [Rx Last Taken Unknown] vitamin E 268 mg (400 unit) capsule 800 unit PO DAILY vitamin #60 caps 02/08/22 [Rx Last Taken Unknown] Bilateral wrist splints #2 ea 06/07/22 [Rx Last Taken Unknown] Trulicity 4.5 mg/0.5 mL subcutaneous pen injector (dulaglutide) 4.5 mg (0.5 mL) subcut QWEEK diabetes #2 mL 07/27/22 [Rx Last Taken Unknown] pen needle, diabetic 32 gauge x 1/4 (Novofine 32) #200 ea 07/27/22 [Rx Last Taken Unknown] cholestyramine (with sugar) 4 gram oral powder 4 g PO DAILY digestion #348.6 grams 08/12/22 [Rx Last Taken Unknown] fluticasone propionate 50 mcg/actuation nasal spray,suspension 2 spray intranasal DAILY PRN PRN Nasal Congestion 09/06/22 [History Last Taken Unknown] pantoprazole 40 mg tablet,delayed release 40 mg PO BID reflux #180 tabs 01/04/23 [Rx Last Taken Unknown] ezetimibe 10 mg tablet (Zetia) 10 mg PO DAILY #60 tabs 02/28/23 [Rx Last Taken Unknown] insulin lispro 100 unit/mL subcutaneous pen (Humalog KwikPen (U-100) Insulin) 12 unit subcut TID 02/28/23 [History Last Taken Unknown] Jardiance 10 mg tablet (empagliflozin) 10 mg PO DAILY #30 tabs 03/14/23 [Rx Last Taken Unknown] denosumab 60 mg/mL subcutaneous syringe (Prolia) 60 mg subcut [id number] bone health #1 mL 03/17/23 [Rx Last Taken Unknown] insulin degludec 100 unit/mL (3 mL) subcutaneous pen (Tresiba FlexTouch U-100 insulin) 40 unit (0.4 mL) subcut QHS #36 mL 07/11/23 [Rx Last Taken Unknown] duloxetine 60 mg capsule,delayed release See Rx Instructions .Route .COMPLEX #180 caps 08/01/23 [Rx Last Taken Unknown] cholecalciferol (vitamin D3) 1,250 mcg (50,000 unit) capsule 1,250 mcg PO QWEEK vitamin #30 caps 08/22/23 [Rx Last Taken Unknown] loratadine 10 mg tablet 10 mg PO DAILY allergies #90 tabs 08/23/23 [Rx Last Taken Unknown] pregabalin 150 mg capsule 150 mg PO BID pain #180 caps 08/23/23 [Rx Last Taken Unknown] rimegepant 75 mg disintegrating tablet (Nurtec ODT) 75 mg PO DAILY PRN migraine headache #8 tabs 08/23/23 [Rx Last Taken Unknown] metoprolol tartrate 25 mg tablet 12.5 mg (1/2 x 25 mg) PO BID #30 tabs 09/22/23 [Rx Last Taken Unknown] apixaban 5 mg tablet (Eliquis) 5 mg PO BID BLOOD THINNER 10/02/23 [History Last Taken Unknown] omega-3 250 vn-jir-rlx-lutein 2.5 mg-zeaxanthin 0.5 mg capsule 1 cap PO DAILY supplement 10/02/23 [History Last Taken Unknown] ursodiol 250 mg tablet 250 mg PO DAILY gallstones 10/02/23 [History Last Taken Unknown] linaclotide 145 mcg capsule (Linzess) 145 mcg PO .QAM BOWELS 10/03/23 [History Last Taken Unknown] amitriptyline 100 mg tablet 100 mg PO QHS sleep #180 tabs 10/05/23 [Rx Last Taken Unknown] cefdinir 300 mg capsule 300 mg PO BID #14 caps 10/05/23 [Rx Last Taken Unknown] albuterol sulfate 90 mcg/actuation aerosol inhaler (Ventolin HFA) 1 - 2 puff inhalation Q4H PRN Wheezing 11/01/23 [History Last Taken Unknown] oxycodone 5 mg tablet mg 11/01/23 [History Last Taken Unknown] sennosides 8.6 mg-docusate sodium 50 mg tablet (Stimulant Laxative Plus) 1 tab- cap PO DAILY PRN STIMULANT 11/01/23 [History Last Taken Unknown] Allergy/AdvReac Type Severity Reaction Status Date / Time saliva substitute Allergy Severe Angioedema Verified 11/01/23 10:58 combination no.9 [From Biotene PBF] gemfibrozil AdvReac Severe Myalgia Verified 11/01/23 10:58 [id number] Reductase AdvReac Severe muscle pain Verified 11/01/23 10:58 Inhibitor Family History Brother Diabetes Mother Diabetes Heart disease Hypertension Grandmother Diabetes Sister Diabetes Heart disease Hypertension Thyroid disorder Father Kidney disease Grandfather Kidney disease Surgical History H/O: hysterectomy History of bilateral knee arthroplasty History of cholecystectomy History of esophagogastroduodenoscopy (EGD) Hx of colonoscopy Social History Smoking Status: Never smoker second hand exposure: No alcohol intake: never substance use type: does not use yessenia/buddhist: Mandaen seatbelt use: always ROS ROS ED Review of Systems ROS Unobtainable: other Constitutional Constitutional ED: Reports lethargy; Denies chills, fever(s), sweats or weight loss Eyes Eyes: Denies blurry vision, change in vision or diplopia ENT ENT ED: Denies rhinorrhea or sore throat Cardiovascular Cardiovascular: Reports chest pain and racing heartbeat; Denies orthopnea Respiratory/Chest Respiratory/Chest: Reports dyspnea and dyspnea on exertion; Denies cough, orthopnea or sputum Gastrointestinal Gastrointestinal: Denies abdominal pain, diarrhea, nausea or vomiting Genitourinary Genitourinary ED: Denies dysuria, hematuria or urinary frequency Musculoskeletal Musculoskeletal: Reports other Details: Left ankle pain and swelling ; Denies arthralgias, back pain, myalgias or neck pain Integumentary Reports other Details: Erythema to the lateral aspect of left ankle ; Denies abscess, Abrasions or rash Neurologic Neurologic: Denies headache(s) or weakness Psychiatric Psychiatric: Denies anxiety, depression or suicidal thoughts Endocrine Endocrinology: Denies polydipsia, polyphagia or polyuria Hematologic/Lymphatic Hematologic/Lymphatic: Denies easy bleeding, easy bruising or lymphadenopathy Allergic/Immunologic Allergic/Immunologic ED: Denies mouth swelling, tongue swelling or urticaria EXAM Physical Exam Const Vital Signs: 11/01/23 10:59 Temperature 97.3 F L Temperature Source Temporal Pulse Rate 92 Respiratory Rate 16 Blood Pressure 156/97 H Blood Pressure Mean 116 Pulse Ox 98 Oxygen Delivery Method Room Air Positive well nourished and well developed General Appearance ED: well developed and NAD HEENT Reports TM's clear and moist mucous membranes normocephalic and atraumatic; Negative for trauma or tenderness Tympanic Membrane ED: Yes TM's clear Eyes PERRL and EOMs intact bilaterally General Eye ED: Negative for pale conjunctiva or scleral icterus Neck no lymphadenopathy, supple and no JVD General: Negative for tenderness Chest Wall inspection of chest normal and palpation of chest normal Chest: Negative for tenderness Resp normal respiratory effort and clear to auscultation bilaterally Effort and Inspection: Negative for respiratory distress or pain with movement Auscultation: Negative for rhonchi, wheezes or diminished lung sounds Cardio regular rate, regular rhythm, S1 normal heart sound, S2 normal heart sound and no murmurs Peripheral Pulses: pulses 2+ throughout GI normal to inspection, nondistended, normoactive bowel sounds, soft to palpation, non-tender, non-distended and no masses Back/Spine no CVA tenderness and no thoracic nor lumbar tenderness Extremity Extremity Narrative: Patient with diffuse edema about the left ankle with cellulitic changes and erythema to the lateral aspect and onto the dorsal lateral aspect of the foot. Neurovascularly intact distally. No ecchymosis or bruising noted. General Extremety ED: Negative for edema General Extremity: Negative for edema Neuro oriented x3, CN's II-XII intact bilaterally, no sensory deficits noted and gait normal Sensorium / Orientation: awake, alert, oriented to person, oriented to place and oriented to time Motor Exam: strength 5/5 throughout and strength abnormal Psych mental status grossly normal Skin no rashes or lesions noted and no wounds MDM MDM Lab Data Attestation: I reviewed the patient's lab results. Lab results narrative: Patient presents with redness and swelling to the left ankle with warmth to the area. She has history of gout. She had some vague injury 3 days ago. X-rays of the left ankle obtained interpreted by myself as no evidence of fracture dislocation. CBC with differential obtained showed a white count of 9.5 with hemoglobin 10.9 and platelet count of 218. Chemistries unremarkable. BUN 17 and creatinine 1.49. I did discuss case with Dr. Keene who is on for foot and ankle. He agreed felt more likely this is gout. He was comfortable with prednisone not for which I did order for patient. I also started her on Unasyn 3 g IV. Discussed case with hospitalist will evaluate patient for admission. Cannot rule out completely cellulitis or septic joint. Dr. Keene will consult. Labs: Laboratory Results - last 24 hr 11/01/23 11:30 WBC 9.5 RBC 3.83 L Hgb 10.9 L Hct 35.1 L MCV 91.6 MCH 28.5 MCHC 31.1 L RDW Std Deviation 50.6 H RDW Coeff of Paulo 15.2 H Plt Count 218 MPV 10.3 Immature Gran % (Auto) 0.500 Neut % (Auto) 68.7 Lymph % (Auto) 17.7 L Posey % (Auto) 9.7 Eos % (Auto) 3.0 Baso % (Auto) 0.4 Absolute Neuts (auto) 6.5 Absolute Lymphs (auto) 1.69 Nucleated RBC % 0 Sodium 137 Potassium 3.5 Chloride 106 Carbon Dioxide 30.0 Anion Gap 1 L BUN 17 Creatinine 1.49 H Estim Creat Clear Calc 39.13 Est GFR (MDRD) Af Amer 45 L Est GFR (MDRD) Non-Af 37 L BUN/Creatinine Ratio 11.4 Glucose 82 Lactic Acid 0.8 Uric Acid 8.7 H Calcium 9.4 Radiography Diagnostic Testing: Clinical Impression(s) from Imaging Studies Ankle X-Ray 11/01/23 11:16 IMPRESSION: Soft tissue swelling. No acute fracture seen. Electronically Signed: Bernardo Queen MD at 12:19 EST , Three-view x-rays left ankle obtained interpreted by myself as soft tissue swelling diffusely without evidence of fracture or dislocation. Radiology in agreement. Discharge Plan Triage Chief Complaint: Lower Extremity Injury ED Provider: Dom Lipscomb Dx/Rx/DC Orders Clinical Impression: Gout, Cellulitis, Acute left ankle pain Prescriptions: No Action (DME) lancets [Accu-Chek Softclix Lancets] Misc See Rx Instructions .ROUTE .MEDSUPPLY Qty: 100 Rx Instructions: As directed, Test 4 times daily before meals and at bedtime (DME) Accu-Chek Christi Plus test strp Strip See Rx Instructions .ROUTE .MEDSUPPLY Qty: 10 Rx Instructions: As directed; Test 4 times daily before meals and at bedtime (DME) CPAP See Rx Instructions .Route .MEDSUPPLY Qty: 1 Rx Instructions: 14 cm H2O (DME) blood-glucose meter Misc See Rx Instructions .ROUTE .MEDSUPPLY Qty: 1 Rx Instructions: As directed (DME) blood pressure monitor [Blood Pressure Kit] Kit See Rx Instructions .ROUTE .MEDSUPPLY Qty: 1 Rx Instructions: As directed aspirin 81 mg tablet,delayed release (DR/EC) 81 mg PO DAILY latanoprost 0.005 % drops 1 drp ophthalmic (eye) QHS vitamin E 400 unit capsule 800 unit PO DAILY Qty: 60 5RF (DME) pen needle, diabetic [Novofine 32] 32 gauge x 1/4 needle See Rx Instructions .ROUTE .MEDSUPPLY Qty: 200 6RF Rx Instructions: As directed; 4x/day Trulicity 4.5 mg/0.5 mL pen injector 4.5 mg subcut QWEEK Qty: 2 4RF (DME) Bilateral wrist splints See Rx Instructions .Route .MEDSUPPLY Qty: 2 0RF Rx Instructions: As directed insulin lispro [Humalog KwikPen Insulin] 100 unit/mL insulin pen 12 unit subcut TID Rx Instructions: 12u with meals, 6u with snacks. +SSI 180-210+2; 211-240+3; 241-300+5; >300 +7 MDD 50 pantoprazole 40 mg tablet,delayed release (DR/EC) 40 mg PO BID Qty: 180 1RF loratadine 10 mg tablet 10 mg PO DAILY Qty: 90 1RF Nurtec ODT 75 mg tablet,disintegrating 75 mg PO DAILY PRN (Reason: migraine headache) Qty: 8 5RF pregabalin 150 mg capsule 150 mg PO BID Qty: 180 1RF fluticasone propionate 50 mcg/actuation spray,suspension 2 spray INTRANASAL DAILY PRN PRN (Reason: Nasal Congestion) Rx Instructions: administer into each nostril albuterol sulfate [Ventolin HFA] 90 mcg/actuation HFA aerosol inhaler 1 - 2 puff inhalation Q4H PRN PRN (Reason: Wheezing) Qty: 1 0RF metoprolol tartrate 25 mg tablet 12.5 mg PO BID Qty: 30 1RF ursodiol 250 mg tablet 250 mg PO DAILY Eliquis 5 mg Tablet 5 mg PO BID [id number] 250-2.5-0.5 mg capsule 1 cap PO DAILY Linzess 145 mcg capsule 145 mcg PO .QAM Patient Comments: TAKE 1 CAPSULE BY MOUTH IN THE MORNING cefdinir 300 mg capsule 300 mg PO BID Qty: 14 0RF amitriptyline 100 mg tablet 100 mg PO QHS Qty: 180 1RF simethicone 80 mg tablet,chewable 80 mg PO 4X/DAY PRN (Reason: Flatulence) Qty: 30 1RF cholestyramine (with sugar) 4 gram powder 4 g PO DAILY Qty: 348.6 0RF Rx Instructions: administer w/meal; avoid other meds within 1hr before or 4-6hr after dose ezetimibe [Zetia] 10 mg tablet 10 mg PO DAILY Qty: 60 2RF Jardiance 10 mg tablet 10 mg PO DAILY Qty: 30 6RF Prolia 60 mg/mL syringe 60 mg subcut [id number] Qty: 1 0RF Tresiba FlexTouch U-100 100 unit/mL (3 mL) insulin pen 40 unit SC QHS Qty: 36 1RF duloxetine 60 mg capsule,delayed release(DR/EC) See Rx Instructions .ROUTE .COMPLEX Qty: 180 1RF Dose Instruction: TAKE 2 CAPSULES BY MOUTH DAILY Rx Instructions: TAKE 2 CAPSULES BY MOUTH DAILY cholecalciferol (vitamin D3) 1,250 mcg (50,000 unit) capsule 1,250 mcg PO QWEEK Qty: 30 1RF Primary Care Provider: Rizwan Clark Referrals: Rizwan Clark MD [Primary Care Provider] - Disposition Disposition: Acute Care Hospital [facility]
--- NOTE | 2023-11-01 11:16 | RAD_ITS ---
STUDY: X-RAY - LEFT ANKLE REASON FOR EXAM: Female, 68 years old. Pain, swelling TECHNIQUE: 3 view(s) of the ankle. COMPARISON: None. FINDINGS: Normal visualized distal tibia and fibula. Old avulsion fracture of the medial malleolus. Normal tibiotalar articulation and ankle mortise. Normal visualized talus and calcaneus. The visualized subtalar, talonavicular, calcaneocuboid and tarsal articulations are normal. Soft tissue swelling. RAD/Ankle min 3 Views IMPRESSION: Soft tissue swelling. No acute fracture seen. Electronically Signed: Bernardo Queen MD at 12:19 EST ,
[2023-11-01] MEDS: 0.9% Normal Saline (1000mL) 1,000 ML 150 ML IV ×2 (11:27→15:32)
[2023-11-01 11:49] LABS: Absolute Lymphocyte Count 1.69 X10^3/uL (0.83-4.51); Absolute Neutrophil Count 6.5 X10^3/uL (2.0-7.7); Basophil# 0.04 X10^3/uL; Basophil% 0.4 % (0-1); Eosinophil# 0.29 X10^3/uL; Hematocrit 35.1 % (37-47); Hemoglobin 10.9 g/dL (12.0-15.0); Lymphocyte # 1.69 X10^3/ul (0.83-4.51); Lymphocyte % 17.7 % (19-41); Mean Corp Hgb Conc 31.1 g/dL (32-36); Mean Corpuscular Hgb 28.5 pg (27.0-32.0); Mean Corpuscular Volume 91.6 fL (81-99); Mean Platelet Vol. 10.3 fl (6.2-12.0); Monocyte# 0.92 X10^3/uL; Monocyte% 9.7 % (0-10); NRBC Flagged by Analyzer 0 % (0-5); Neutrophil # 6.54 X10^3/uL (2.7-7.7); Neutrophil % 68.7 % (47-70); Platelet Count 218 K/mm3 (150-450); RBC Distribution Width CV 15.2 % (11.6-14.6); RBC Distribution Width SD 50.6 fl (35.1-43.9); Red Blood Count 3.83 M/mm3 (4.2-5.4); White Blood Count 9.5 K/mm3 (4.4-11.0)
[2023-11-01 11:58] LABS: Anion Gap 1 (5-15); BUN 17 mg/dL (7-18); BUN/Creat Ratio 11.4 RATIO (10-20); Calcium,Total 9.4 mg/dL (8.5-10.1); Chloride 106 mmol/L (98-107); Creatinine, Serum 1.49 mg/dL (0.55-1.02); EST Glomerular Filtration Rate 37 mL/min (>60); Est Glom Filt Rate - Afr Amer 45 mL/min (>60); Estimated Creatinine Clearance 39.13 ml/min; Glucose 82 mg/dL (74-106); Potassium 3.5 mmol/L (3.5-5.1); Sodium Level 137 mmol/L (136-145); Uric Acid 8.7 mg/dL (2.6-6.0)
[2023-11-01 12:02] LABS: Lactic Acid 0.8 mmol/L (0.4-1.9)
[2023-11-01] MEDS: Ondansetron 4 MG/2 ML Vial IV (12:20)
[2023-11-01] MEDS: Morphine 4 MG/ML Syringe IV (12:20)
[2023-11-01] MEDS: Ampicillin/Sulbactam 3 GM in 0.9% Normal Saline (100mL MB+) 100 ML IV (12:51)
--- NOTE | 2023-11-01 13:26 | HP.PCM.HOS_ITS ---
HPI - General General Date of Admission: 11/01/23 Date of Service: 11/01/23 Chief Complaint: Left ankle swelling and pain HPI Narrative YVES NIÑO, is a 68-year-old female history of GERD, Chronic hypoxic resp failure on 2L home O2, diabetes, anxiety, gout, IBS, CKD, BENTLEY, VTE on Eliquis who presented to [facility] ED 11/01/2023 for left ankle pain and swelling that started last evening. She was trying to get into a car 3 days ago and lost her balance and caught herself, did not fall and did not have pain initially but pain did begin develop last night. In the ED lab workup unremarkable and x-ray demonstrated soft tissue swelling with old avulsion fracture medial malleolus but no acute fracture seen. Uric acid slightly elevated and podiatry contacted regarding gout versus infection versus injury, they agreed to antibiotics and steroids and advised that they would see her in consultation. Patient unable to ambulate and unable to be discharged so hospitalist contacted for admission. Patient seen at bedside. She endorses history as above and that she was in her usual health until she began to get pain last night in her left ankle that continued to worsen, feels slightly better with interventions in the ED though still with significant pain. Feels cold but does not note any fevers, does report she has been on oxygen since August but no changes in her breathing, has not been using her CPAP because she was instructed to use O2 and she cannot wear both of them together, denies any other focal complaints. Does note that she has had gout in multiple joints including ankles but that this feels different. [facility] Medical History Abnormal thyroid function test Anemia Anxiety Anxiety and depression Arthritis Back pain Bilateral lower extremity edema Blackout Chronic neck and back pain CKD (chronic kidney disease), stage III CPAP (continuous positive airway pressure) dependence Depression Diabetes Dietary restriction Difficulty balancing when standing Difficulty swallowing Dizziness Essential hypertension Fatigue Fatty liver Fibromyalgia Fibrosis of liver Flu vaccine need GERD (gastroesophageal reflux disease) Glaucoma Gout Hematuria High cholesterol History of echocardiogram History of pain when walking History of renal disease History of stress test History of thyroid nodule Hx of phlebitis Hyperlipidemia Insomnia Insulin dependent diabetes mellitus Leg cramps Limb weakness Liver disease Loss of hearing Lyme disease Macular degeneration Migraine headache Morbid obesity Myositis Non-smoker Obesity BENTLEY on CPAP Osteoporosis Polymyositis Restless legs Sensorineural hearing loss of both ears Shoulder pain Sinusitis Type 2 diabetes mellitus Vitamin D deficiency Wears glasses Home Medications CPAP #1 ea 09/24/20 [History Last Taken Unknown] aspirin 81 mg tablet,delayed release 81 mg PO DAILY heart health 09/24/20 [History Last Taken Unknown] blood pressure monitor (Blood Pressure Kit) #1 ea 09/24/20 [History Last Taken Unknown] blood sugar diagnostic (Accu-Chek Christi Plus test strips) #10 ea 09/24/20 [History Last Taken Unknown] blood-glucose meter #1 ea 09/24/20 [History Last Taken Unknown] lancets (Accu-Chek Softclix Lancets) #100 ea 09/24/20 [History Last Taken Unknown] latanoprost 0.005 % eye drops 1 drp ophthalmic (eye) QHS MACULAR DEGENRATION 02/24/21 [History Last Taken Unknown] simethicone 80 mg chewable tablet 80 mg PO 4X/DAY PRN Flatulence #30 tabs 12/07/21 [Rx Last Taken Unknown] vitamin E 268 mg (400 unit) capsule 800 unit PO DAILY vitamin #60 caps 02/08/22 [Rx Last Taken Unknown] Bilateral wrist splints #2 ea 06/07/22 [Rx Last Taken Unknown] Trulicity 4.5 mg/0.5 mL subcutaneous pen injector (dulaglutide) 4.5 mg (0.5 mL) subcut QWEEK diabetes #2 mL 07/27/22 [Rx Last Taken Unknown] pen needle, diabetic 32 gauge x 1/4 (Novofine 32) #200 ea 07/27/22 [Rx Last Taken Unknown] cholestyramine (with sugar) 4 gram oral powder 4 g PO DAILY digestion #348.6 grams 08/12/22 [Rx Last Taken Unknown] fluticasone propionate 50 mcg/actuation nasal spray,suspension 2 spray intranasal DAILY PRN PRN Nasal Congestion 09/06/22 [History Last Taken Unknown] pantoprazole 40 mg tablet,delayed release 40 mg PO BID reflux #180 tabs 01/04/23 [Rx Last Taken Unknown] ezetimibe 10 mg tablet (Zetia) 10 mg PO DAILY #60 tabs 02/28/23 [Rx Last Taken Unknown] insulin lispro 100 unit/mL subcutaneous pen (Humalog KwikPen (U-100) Insulin) 12 unit subcut TID 02/28/23 [History Last Taken Unknown] Jardiance 10 mg tablet (empagliflozin) 10 mg PO DAILY #30 tabs 03/14/23 [Rx Last Taken Unknown] denosumab 60 mg/mL subcutaneous syringe (Prolia) 60 mg subcut [id number] bone health #1 mL 03/17/23 [Rx Last Taken Unknown] insulin degludec 100 unit/mL (3 mL) subcutaneous pen (Tresiba FlexTouch U-100 insulin) 40 unit (0.4 mL) subcut QHS #36 mL 07/11/23 [Rx Last Taken Unknown] duloxetine 60 mg capsule,delayed release See Rx Instructions .Route .COMPLEX #180 caps 08/01/23 [Rx Last Taken Unknown] cholecalciferol (vitamin D3) 1,250 mcg (50,000 unit) capsule 1,250 mcg PO QWEEK vitamin #30 caps 08/22/23 [Rx Last Taken Unknown] loratadine 10 mg tablet 10 mg PO DAILY allergies #90 tabs 08/23/23 [Rx Last Taken Unknown] pregabalin 150 mg capsule 150 mg PO BID pain #180 caps 08/23/23 [Rx Last Taken Unknown] rimegepant 75 mg disintegrating tablet (Nurtec ODT) 75 mg PO DAILY PRN migraine headache #8 tabs 08/23/23 [Rx Last Taken Unknown] metoprolol tartrate 25 mg tablet 12.5 mg (1/2 x 25 mg) PO BID #30 tabs 09/22/23 [Rx Last Taken Unknown] apixaban 5 mg tablet (Eliquis) 5 mg PO BID BLOOD THINNER 10/02/23 [History Last Taken Unknown] omega-3 250 zu-zqv-fns-lutein 2.5 mg-zeaxanthin 0.5 mg capsule 1 cap PO DAILY supplement 10/02/23 [History Last Taken Unknown] ursodiol 250 mg tablet 250 mg PO DAILY gallstones 10/02/23 [History Last Taken Unknown] linaclotide 145 mcg capsule (Linzess) 145 mcg PO .QAM BOWELS 10/03/23 [History Last Taken Unknown] amitriptyline 100 mg tablet 100 mg PO QHS sleep #180 tabs 10/05/23 [Rx Last Taken Unknown] cefdinir 300 mg capsule 300 mg PO BID #14 caps 10/05/23 [Rx Last Taken Unknown] albuterol sulfate 90 mcg/actuation aerosol inhaler (Ventolin HFA) 1 - 2 puff inhalation Q4H PRN Wheezing 11/01/23 [History Last Taken Unknown] oxycodone 5 mg tablet mg 11/01/23 [History Last Taken Unknown] sennosides 8.6 mg-docusate sodium 50 mg tablet (Stimulant Laxative Plus) 1 tab- cap PO DAILY PRN STIMULANT 11/01/23 [History Last Taken Unknown] Allergy/AdvReac Type Severity Reaction Status Date / Time saliva substitute Allergy Severe Angioedema Verified 11/01/23 10:58 combination no.9 [From AlchemyAPI PBF] gemfibrozil AdvReac Severe Myalgia Verified 11/01/23 10:58 Qztaagn-FOW-RqV Reductase AdvReac Severe muscle pain Verified 11/01/23 10:58 Inhibitor Family History Brother Diabetes Mother Diabetes Heart disease Hypertension Grandmother Diabetes Sister Diabetes Heart disease Hypertension Thyroid disorder Father Kidney disease Grandfather Kidney disease Surgical History H/O: hysterectomy History of bilateral knee arthroplasty History of cholecystectomy History of esophagogastroduodenoscopy (EGD) Hx of colonoscopy Social History Smoking Status: Never smoker second hand exposure: No alcohol intake: never substance use type: does not use yessenia/mosque: Restorationism seatbelt use: always ROS ROS Narrative General: Denies fever/chills HENT: Denies headache, denies stuffy nose, denies sore throat EYES: Denies changes in vision Resp: Denies cough, chronic shortness of breath Cardiac: Denies chest pain GI: Denies abdominal pain, denies changes in bowel, denies nausea/vomiting : Denies changes in urination Extremity: Swelling in left ankle extending onto the foot and up until leg MSK: Denies weakness Neuro: Denies any numbness/tingling Heme: Denies any bleeding or bruising Skin: Some erythema and warmth of left ankle and leg more so on the lateral aspect Psychiatric: No complaints voiced Vital Signs Vital Signs Vital Signs: 11/01/23 10:59 Temperature 97.3 F L Temperature Source Temporal Pulse Rate 92 Respiratory Rate 16 Blood Pressure 156/97 H Blood Pressure Mean 116 Pulse Ox 98 Oxygen Delivery Method Room Air Weight Weight: 99.79 kg Body Mass Index (BMI) 41.5 Physical Exam Narrative General: Alert, oriented, no apparent distress HEENT: Atraumatic, normocephalic Eyes: Anicteric, normal conjunctiva, extraocular movements grossly intact Neck: Supple Respiratory: Slight increased work of breathing, somewhat diminished at the bases Cardiovascular: Regular rate and rhythm GI: Soft, nontender, nondistended Extremities: Left ankle up and calf edematous Musculoskeletal: Moving all extremities, can move left ankle but it is painful, also pain on palpation especially over lateral aspect/joint that does have some tenderness going up to mid calf and onto the foot Neuro: No overt focal neurological deficits Skin: Some erythema up onto the mid calf and into the foot especially on lateral aspect Psych: Cooperative Results Lab / Micro Data 11/01/23 11:30 11/01/23 11:30 Labs: Laboratory Results - last 24 hr 11/01/23 11:30: WBC 9.5, RBC 3.83 L, Hgb 10.9 L, Hct 35.1 L, MCV 91.6, MCH 28.5, MCHC 31.1 L, RDW Std Deviation 50.6 H, RDW Coeff of Paulo 15.2 H, Plt Count 218, MPV 10.3, Immature Gran % (Auto) 0.500, Neut % (Auto) 68.7, Lymph % (Auto) 17.7 L, Blount % (Auto) 9.7, Eos % (Auto) 3.0, Baso % (Auto) 0.4, Absolute Neuts (auto) 6.5, Absolute Lymphs (auto) 1.69, Nucleated RBC % 0, Sodium 137, Potassium 3.5, Chloride 106, Carbon Dioxide 30.0, Anion Gap 1 L, BUN 17, Creatinine 1.49 H, Estim Creat Clear Calc 39.13, Est GFR (MDRD) Af Amer 45 L, Est GFR (MDRD) Non-Af 37 L, BUN/Creatinine Ratio 11.4, Glucose 82, Lactic Acid 0.8, Uric Acid 8.7 H, Calcium 9.4 Imaging Radiology Impression Ankle X-Ray 11/01/23 11:16 IMPRESSION: Soft tissue swelling. No acute fracture seen. Electronically Signed: Bernardo Queen MD at 12:19 EST , Assessment & Plan Assessment/Plan (1) Acute left ankle pain: (2) Cellulitis: (3) CKD (chronic kidney disease), stage III: QUALIFIERS: Chronic kidney disease stage 3 subtype: stage 3b (GFR 30-44) Qualified Code(s): N18.32 - Chronic kidney disease, stage 3b (4) Essential hypertension: (5) GERD (gastroesophageal reflux disease): (6) Gout: (7) BENTLEY on CPAP: (8) Pulmonary emboli: (9) Type 2 diabetes mellitus: QUALIFIERS: Diabetes mellitus fci insulin use: with superintendent container terminal use Diabetes mellitus complication status: with hyperglycemia Qualified Code(s): E11.65 - Type 2 diabetes mellitus with hyperglycemia; Z79.4 - senior living (current) use of insulin PLAN: Plan #Left ankle swelling -Gout versus injury versus infection -May be gout but also appears somewhat cellulitic and cannot rule out infectious process at this time especially given erythema is more lateral and goes up into the leg and down into the foot -Will continue antibiotics, given diabetes will place on broad-spectrum and check MRSA swab to de-escalate vancomycin if applicable -Will obtain ESR, CRP, Pro-[place]bin[place] -Will consult podiatry, may need joint aspiration to assess for crystals or infection but will defer to podiatry -Given high concern for cellulitis/infection will hold further steroids and continue antibiotics pending podiatry eval -PT/OT -Pain control -Also schedule Tylenol -Patient started on IV fluids in ED -Do not suspect blood clot given asymmetric erythema and patient compliance with Eliquis #Type 2 diabetes mellitus -Glucose checks and sliding scale insulin -Hold oral hypoglycemics # History of DVT/PE -Patient reports compliance with her Eliquis -Continue Eliquis #GERD -Continue PPI # Anxiety -Continue home duloxetine and amitriptyline # BENTLEY/chronic hypoxic respiratory failure on 2 L home O2 -Continue home CPAP with O2 bleed nightly, patient swelling and wearing O2 at home due to not being able to use this with the CPAP, will likely need it hooked up for CPAP with O2 bleed so patient can do both at home -Albuterol as needed # CKD stage IIIb -Appears to be at baseline -Avoid nephrotoxic agents -Daily BMPs # Chronic normocytic anemia -Likely secondary to chronic disease -Appears to be at baseline #DVT ppx: Epifanio Silva MD Charges/Coding Visit Charges Inpatient E&M: 73299 Init Hosp L2
--- NOTE | 2023-11-01 13:54 | NURSING ---
MED SURG STOUT LEFT ANKLE PAIN, GOUT, CELLULITIS
[2023-11-01] MEDS: predniSONE 20 MG Tablet 40 MG PO (14:09)
[2023-11-01 14:57] LABS: Erythrocyte Sedimentation Rate 27 mm/hr (0-30)
[2023-11-01] MEDS: Piperacil/Tazobactam 4.5 GM in 0.9% Normal Saline (100mL MB+) 100 ML IV (15:32)
[2023-11-01] MEDS: Acetaminophen 500 MG Tablet 1000 MG PO ×2 (15:36→22:26)
[2023-11-01] MEDS: Vancomycin HCl 2,000 MG in 0.9% Normal Saline (500mL Bag) 500 ML 250 MG IV (16:13)
--- NOTE | 2023-11-01 16:20 | PCM.RX.CS ---
Consult Antibiotic Management Pharmacy has been consulted to manage selected antibiotic: Vancomycin Type of Intervention Type of Consult: New start Suspected Infection Suspected Infection: Skin/Soft tissue Prior Doses of Antibiotics Prior Doses of Antibiotics Received/Current Regimen: Vancomycin 2000 mg IV given 11/01/23 @ 1613 Labs Labs: Sodium 137 mmol/L (136-145) 11/01/23 11:30 Potassium 3.5 mmol/L (3.5-5.1) 11/01/23 11:30 Chloride 106 mmol/L (98-107) 11/01/23 11:30 Carbon Dioxide 30.0 mmol/L (21.0-32.0) 11/01/23 11:30 Anion Gap 1 (5-15) L 11/01/23 11:30 BUN 17 mg/dL (7-18) 11/01/23 11:30 Creatinine 1.49 mg/dL (0.55-1.02) H 11/01/23 11:30 Est GFR (MDRD) Af Amer 45 mL/min (>60) L 11/01/23 11:30 Est GFR (MDRD) Non-Af 37 mL/min (>60) L 11/01/23 11:30 BUN/Creatinine Ratio 11.4 RATIO (10-20) 11/01/23 11:30 Glucose 82 mg/dL (74-106) 11/01/23 11:30 Dosing Weight Weight used for dosin.8 kg Estimated Creatinine Clearance Estimated Creatinine Clearance: ~39 Goal Trough Goal Trough: 15-20 mcg/mL Pharmacy Plan for Drug Dosing Pharmacy Plan for Drug Dosing: Vancomycin 2000 mg IV x 1, followed by 1500 mg IV Q24H. Pharmacy Service will continue to monitor and adjust dosing as required. Follow-Up Labs Follow-Up Labs: Trough: Vancomycin Date/Time Labs Ordered Labs to be done on [date and time ordered]: 11/03/23 @ 0594
[2023-11-01 16:33] LABS: Bedside Glucose 75 mg/dL (74-106)
[2023-11-01 16:33] LABS: Bedside Glucose 52 mg/dL (74-106)
--- NOTE | 2023-11-01 18:11 | CPS ---
talked to patient about home CPAP, pt states she does not wear her CPAP at night, she only wears 2-3 L O2 at night
[2023-11-01] MEDS: Pregabalin 75 MG Capsule 150 MG PO (22:26)
[2023-11-01] MEDS: Insulin Glargine-YFGN 100 UNIT/ML Pen 20 UNIT SC (22:27)
[2023-11-01] MEDS: Insulin Lispro 100 UNIT/ML INSULN.PEN SC (22:27)
[2023-11-01] MEDS: Piperacil/Tazobactam 3.375 GM in 0.9% Normal Saline (50mL MB+) 50 ML IV (22:28)
[2023-11-01] MEDS: Amitriptyline 100 MG Tablet PO (22:29)
[2023-11-01] MEDS: Pantoprazole Sodium 40 MG Tablet PO (22:29)
[2023-11-01] MEDS: Metoprolol Tartrate 25 MG Tablet 12.5 MG PO (22:30)
[2023-11-01] MEDS: APIXABAN 5 MG TABLET PO (22:32)
[2023-11-01 22:58] LABS: Bedside Glucose 229 mg/dL (74-106)
[2023-11-02] MEDS: Acetaminophen 500 MG Tablet 1000 MG PO ×3 (05:12→22:00)
[2023-11-02] MEDS: 0.9% Normal Saline (250mL Bag) 250 ML 15 ML IV (05:13)
[2023-11-02] MEDS: Piperacil/Tazobactam 3.375 GM in 0.9% Normal Saline (50mL MB+) 50 ML IV ×3 (05:13→21:59)
[2023-11-02 05:25] VITALS: BP 120/83; PULSE 73; RESP 16; TEMP 36.4; O2SAT 97
[2023-11-02 06:54] LABS: Bedside Glucose 143 mg/dL (74-106)
--- NOTE | 2023-11-02 07:59 | CON.PCM_ITS ---
Assessment & Plan Assessment/Plan (1) Acute left ankle pain: PLAN: Exam performed Radiographs negative for acute trauma Clinical picture is unclear. At this time I am not ruling out cellulitis versus gout flare versus Charcot event. Patient's symptoms have significantly improved overnight. Due to elevated uric acid and history of no long-term uric acid lowering medication is more than likely an acute gout flare. Patient does not have any open wounds which would constitute access for cellulitis. Patient does have a subtle history of trauma several days prior which could constitute the initiation of a Charcot event. Patient does have elevated uric acid and clinical signs of gout. I recommend continue nonweightbearing to the left lower extremity. Recommend continued IV antibiotics and corticosteroids. Due to anticoagulation and poor localization, will not aspirate at current. If symptoms do not improve and clinical syringes and scenario does not clarify then we will consider aspiration or MRI. If patient is having a Charcot event she may require prolonged immobilization and nonweightbearing to left lower extremity which may or may require SNF placement. Will plan to reevaluate the patient tomorrow. (2) Cellulitis: QUALIFIERS: Site of cellulitis: extremity Site of cellulitis of extremity: lower extremity Laterality: left Qualified Code(s): L03.116 - Cellulitis of left lower limb (3) Gout: QUALIFIERS: Gout site: ankle Encounter type: initial encounter Laterality: left Presence of tophus: without tophus Chronicity: chronic HPI Consult Data Date of Consult: 11/02/23 HPI Narrative HPI Narrative: YEVS NIÑO, is a 68 F who presents with acute onset left ankle pain redness swelling in setting of diabetic neuropathy, history of gout, subtle trauma 3 days prior. Patient noticed yesterday morning increased redness swelling and inability to bear weight to her left foot. Patient patient was taken to the emergency room and evaluated. Patient had elevated uric acid in the emergency room and has a history of gout, patient is not on any long-term uric acid lowering medication. Patient also has a history of diabetic neuropathy and recent trauma, Charcot cannot be ruled out. Patient has no open wounds. Patient does note improvement in pain swelling and redness today. Patient has aching pain 4-5/10 at rest. No other complaints. No issues overnight. Patient does have esophageal cancer and is on long-term anticoagulation. [facility] Medical History Abnormal thyroid function test Anemia Anxiety Anxiety and depression Arthritis Back pain Bilateral lower extremity edema Blackout Chronic neck and back pain CKD (chronic kidney disease), stage III COVID-19 CPAP (continuous positive airway pressure) dependence Depression Diabetes Diabetes Dietary restriction Difficulty balancing when standing Difficulty swallowing Dizziness DVT (deep venous thrombosis) Elevated troponin Essential hypertension Fatigue Fatty liver Fibromyalgia Fibrosis of liver Flu vaccine need GERD (gastroesophageal reflux disease) Glaucoma Gout Hematuria High cholesterol History of echocardiogram History of pain when walking History of renal disease History of stress test History of thyroid nodule Hx of phlebitis Hyperlipidemia Hypertension Insomnia Insulin dependent diabetes mellitus Leg cramps Limb weakness Liver disease Loss of hearing Lyme disease Macular degeneration Migraine headache Morbid obesity Myositis Non-smoker Obesity On home oxygen therapy [place] on CPAP Osteoporosis Polymyositis Respiratory failure Restless legs Sensorineural hearing loss of both ears Shoulder pain Sinusitis Sleep apnea Stroke/cerebrovascular accident Type 2 diabetes mellitus Vitamin D deficiency Wears glasses Home Medications CPAP #1 ea 09/24/20 [History Last Taken Unknown] aspirin 81 mg tablet,delayed release 81 mg PO DAILY heart health 09/24/20 [History Last Taken 11/01/23] blood pressure monitor (Blood Pressure Kit) #1 ea 09/24/20 [History Last Taken Unknown] blood sugar diagnostic (Accu-Chek Christi Plus test strips) #10 ea 09/24/20 [History Last Taken Unknown] blood-glucose meter #1 ea 09/24/20 [History Last Taken Unknown] lancets (Accu-Chek Softclix Lancets) #100 ea 09/24/20 [History Last Taken Unknown] latanoprost 0.005 % eye drops 1 drp ophthalmic (eye) QHS MACULAR DEGENRATION 02/24/21 [History Last Taken Unknown] simethicone 80 mg chewable tablet 80 mg PO 4X/DAY PRN Flatulence #30 tabs 12/07/21 [Rx Last Taken Unknown] vitamin E 268 mg (400 unit) capsule 800 unit PO DAILY vitamin #60 caps 02/08/22 [Rx Last Taken 11/01/23] Bilateral wrist splints #2 ea 06/07/22 [Rx Last Taken Unknown] pen needle, diabetic 32 gauge x 1/4 (Novofine 32) #200 ea 07/27/22 [Rx Last Taken Unknown] cholestyramine (with sugar) 4 gram oral powder 4 g PO DAILY digestion #348.6 grams 08/12/22 [Rx Last Taken Unknown] fluticasone propionate 50 mcg/actuation nasal spray,suspension 2 spray intrana kelly DAILY PRN Nasal Congestion 09/06/22 [History Last Taken Unknown] pantoprazole 40 mg tablet,delayed release 40 mg PO BID reflux #180 tabs 01/04/23 [Rx Last Taken 11/01/23] ezetimibe 10 mg tablet (Zetia) 10 mg PO DAILY #60 tabs 02/28/23 [Rx Last Taken 11/01/23] insulin lispro 100 unit/mL subcutaneous pen (Humalog KwikPen (U-100) Insulin) 12 unit subcut TID 02/28/23 [History Last Taken 10/31/23] Jardiance 10 mg tablet (empagliflozin) 10 mg PO DAILY #30 tabs 03/14/23 [Rx Last Taken 11/01/23] denosumab 60 mg/mL subcutaneous syringe (Prolia) 60 mg subcut [id number] bone health #1 mL 03/17/23 [Rx Last Taken Unknown] duloxetine 60 mg capsule,delayed release See Rx Instructions .Route .COMPLEX #180 caps 08/01/23 [Rx Last Taken 10/31/23] loratadine 10 mg tablet 10 mg PO DAILY allergies #90 tabs 08/23/23 [Rx Last Taken 11/01/23] pregabalin 150 mg capsule 150 mg PO BID pain #180 caps 08/23/23 [Rx Last Taken 11/01/23] rimegepant 75 mg disintegrating tablet (Nurtec ODT) 75 mg PO DAILY PRN migraine headache #8 tabs 08/23/23 [Rx Last Taken Unknown] metoprolol tartrate 25 mg tablet 12.5 mg (1/2 x 25 mg) PO BID #30 tabs 09/22/23 [Rx Last Taken 11/01/23] apixaban 5 mg tablet (Eliquis) 5 mg PO BID BLOOD THINNER 10/02/23 [History Last Taken 11/01/23] ursodiol 250 mg tablet 250 mg PO DAILY gallstones 10/02/23 [History Last Taken 11/01/23] linaclotide 145 mcg capsule (Linzess) 145 mcg PO DAILY BOWELS 10/03/23 [History Last Taken 10/25/23] albuterol sulfate 90 mcg/actuation aerosol inhaler (Ventolin HFA) 1 - 2 puff inhalation Q4H PRN Wheezing 11/01/23 [History Last Taken 09/19/23] amitriptyline 100 mg tablet 200 mg PO QHS sleep 11/01/23 [History Last Taken 10/31/23] cholecalciferol (vitamin D3) 1,250 mcg (50,000 unit) capsule 1,250 mcg PO LUCIO vitamin 11/01/23 [History Last Taken 10/23/23] insulin degludec 100 unit/mL (3 mL) subcutaneous pen (Tresiba FlexTouch U-100 insulin) 35 unit subcut QHS 11/01/23 [History Last Taken 10/31/23] oxycodone 5 mg tablet 2.5 mg PO Q4H PRN pain or shortness of breath 11/01/23 [History Last Taken 10/31/23] sennosides 8.6 mg-docusate sodium 50 mg tablet (Stimulant Laxative Plus) 1 tab- cap PO DAILY PRN STIMULANT 11/01/23 [History Last Taken Unknown] Allergy/AdvReac Type Severity Reaction Status Date / Time saliva substitute Allergy Severe Angioedema Verified 11/01/23 10:58 combination no.9 [From Biotene PBF] gemfibrozil AdvReac Severe Myalgia Verified 11/01/23 10:58 Axmeawo-BWS-YmL Reductase AdvReac Severe muscle pain Verified 11/01/23 10:58 Inhibitor Family History Brother Diabetes Mother Diabetes Heart disease Hypertension Grandmother Diabetes Sister Diabetes Heart disease Hypertension Thyroid disorder Father Kidney disease Grandfather Kidney disease Surgical History H/O: hysterectomy History of bilateral knee arthroplasty History of cholecystectomy History of esophagogastroduodenoscopy (EGD) Hx of colonoscopy Social History Smoking Status: Never smoker second hand exposure: No alcohol intake: never substance use type: does not use yessenia/mormon: Sikh seatbelt use: always ROS Constitutional Constitutional: Denies change in weight, chills or headache(s) Eyes Eyes: Denies acute decrease in peripheral vision, change in eye color or discongugate gaze ENT HEENT: Denies bleeding gums, ear pain or epistaxis Cardiovascular Cardiovascular: Denies chest pain at rest, dizziness or dyspnea Respiratory/Chest Respiratory/Chest: Denies change in phlegm color, dyspnea or inability to speak Physical Exam Narrative Vascular: Dorsalis pedis posterior tibial pulses palpable 2 out of 4 bilateral lower extremity. Capillary fill brisk to lesser digits. Absent digital hair growth noted. Neurologic: Light touch protective sensation absent to bilateral feet. Dermatologic: Erythema and edema noted to the lateral left ankle with focal increase in warmth. Tenderness to palpation noted diffusely to the lateral ankle. No evidence of ecchymosis. Musculoskeletal: Pain to palpation lateral ankle diffusely extending into lateral midfoot. No focal area of pain. No gross deformity noted. No sign DVT. Const alert and oriented x3 Lab / Micro Data 11/01/23 11:30 11/01/23 11:30 Labs: Laboratory Results - last 24 hr 11/01/23 11:30: WBC 9.5, RBC 3.83 L, Hgb 10.9 L, Hct 35.1 L, MCV 91.6, MCH 28.5, MCHC 31.1 L, RDW Std Deviation 50.6 H, RDW Coeff of Paulo 15.2 H, Plt Count 218, MPV 10.3, Immature Gran % (Auto) 0.500, Neut % (Auto) 68.7, Lymph % (Auto) 17.7 L, [place] % (Auto) 9.7, Eos % (Auto) 3.0, Baso % (Auto) 0.4, Absolute Neuts (auto) 6.5, Absolute Lymphs (auto) 1.69, Nucleated RBC % 0, ESR 27, Sodium 137, Potassium 3.5, Chloride 106, Carbon Dioxide 30.0, Anion Gap 1 L, BUN 17, Creatinine 1.49 H, Estim Creat Clear Calc 39.13, Est GFR (MDRD) Af Amer 45 L, Est GFR (MDRD) Non-Af 37 L, BUN/Creatinine Ratio 11.4, Glucose 82, Lactic Acid 0.8, Uric Acid 8.7 H, Calcium 9.4, C-React Prot Ext Range 50.80 H 11/01/23 15:25: Procalcitonin 0.10 H 11/01/23 15:40: POC Glucose 52 L 11/01/23 16:12: POC Glucose 75 11/01/23 22:12: POC Glucose 229 H 11/02/23 06:31: POC Glucose 143 H Imaging Radiology Impression Ankle X-Ray 11/01/23 11:16 IMPRESSION: Soft tissue swelling. No acute fracture seen. Electronically Signed: Bernardo Queen MD at 12:19 EST ,
[2023-11-02] MEDS: Aspirin E.C. 81 MG Tablet PO (08:04)
[2023-11-02 08:10] LABS: Absolute Lymphocyte Count 1.42 X10^3/uL (0.83-4.51); Absolute Neutrophil Count 7.4 X10^3/uL (2.0-7.7); Basophil# 0.04 X10^3/uL; Basophil% 0.4 % (0-1); Eosinophil# 0.02 X10^3/uL; Eosinophils% 0.2 % (0-5); Hematocrit 31.5 % (37-47); Hemoglobin 9.7 g/dL (12.0-15.0); Lymphocyte # 1.42 X10^3/ul (0.83-4.51); Lymphocyte % 14.1 % (19-41); Mean Corp Hgb Conc 30.8 g/dL (32-36); Mean Corpuscular Hgb 28.2 pg (27.0-32.0); Mean Corpuscular Volume 91.6 fL (81-99); Mean Platelet Vol. 10.7 fl (6.2-12.0); Monocyte# 1.12 X10^3/uL; Monocyte% 11.1 % (0-10); NRBC Flagged by Analyzer 0 % (0-5); Neutrophil # 7.41 X10^3/uL (2.7-7.7); Neutrophil % 73.6 % (47-70); Platelet Count 211 K/mm3 (150-450); RBC Distribution Width CV 15.2 % (11.6-14.6); RBC Distribution Width SD 51.3 fl (35.1-43.9); Red Blood Count 3.44 M/mm3 (4.2-5.4); White Blood Count 10.1 K/mm3 (4.4-11.0)
[2023-11-02 08:36] LABS: ALB/GLOB Ratio 0.7 RATIO (0.9-2.4); AST(SGOT) 19 U/L (15-37); Alanine Aminotransfer ALT/SGPT 27 U/L (13-56); Albumin, Serum 2.3 g/dL (3.2-5.0); Alkaline Phosphatase 120 U/L (45-117); Anion Gap 1 (5-15); BUN 27 mg/dL (7-18); BUN/Creat Ratio 18.5 RATIO (10-20); Calcium,Total 8.9 mg/dL (8.5-10.1); Chloride 110 mmol/L (98-107); Creatinine, Serum 1.46 mg/dL (0.55-1.02); EST Glomerular Filtration Rate 38 mL/min (>60); Est Glom Filt Rate - Afr Amer 46 mL/min (>60); Estimated Creatinine Clearance 41.31 ml/min; Globulin 3.3 g/dL (2.2-4.2); Glucose 137 mg/dL (74-106); Potassium 3.7 mmol/L (3.5-5.1); Protein, Total 5.6 g/dL (6.4-8.2); Sodium Level 137 mmol/L (136-145)
--- NOTE | 2023-11-02 08:36 | WOUNDNOTE ---
In to see patient this am with Dr Keene. some mild redness to the left lateral ankle with pitting edema. patient able to move foot/ankle. denies much discomfort today. will monitor. applied RAMA wrap from the base of the toes to just below the knee per Dr Keene order.
--- NOTE | 2023-11-02 09:16 | PN.HOSP_ITS ---
Reason for Visit Reason for Visit: Diagnoses Type 2 diabetes mellitus with hyperglycemia (11/01/23) Obstructive sleep apnea (adult) (pediatric) (11/01/23) Essential (primary) hypertension (11/01/23) Other pulmonary embolism without acute cor pulmonale (11/01/23) Gastro-esophageal reflux disease without esophagitis (11/01/23) Cellulitis of left lower limb (11/01/23) Cellulitis, unspecified (11/01/23) Gout, unspecified (11/01/23) Pain in left ankle and joints of left foot (11/01/23) Chronic kidney disease, stage 3b (11/01/23) USP (current) use of insulin (11/01/23) Dependence on other enabling machines and devices (11/01/23) Subjective Subjective Patient is a 68-year-old lady who presented with left ankle swelling Objective Data Objective Data Vital Signs: Vital Signs Temp Pulse Resp BP Pulse Ox O2 Del Method O2 Flow Rate 97.6 F L 73 16 120/83 H 97 Nasal Cannula 2 11/02/23 05:25 11/02/23 05:25 11/02/23 05:25 11/02/23 05:25 11/02/23 05:25 11/02/23 05:25 11/02/23 05:25 Oxygen Flow Rate (L/min) 2 Oxygen Delivery Method Nasal Cannula Weight: 105.687 kg Body Mass Index (BMI) 44.0 Intake & Output: Intake and Output for Last 24 Hours 10/31/23 11/01/23 11/02/23 23:59 23:59 23:59 Intake Total 2427.0 / 2427.0 450 / 450 Output Total 150 / 150 400 / 400 Balance 2277.0 / 2277.0 50 / 50 Lab / Micro Data 11/02/23 07:32 11/02/23 07:32 Labs: Laboratory Results - last 24 hr 11/01/23 11:30: WBC 9.5, RBC 3.83 L, Hgb 10.9 L, Hct 35.1 L, MCV 91.6, MCH 28.5, MCHC 31.1 L, RDW Std Deviation 50.6 H, RDW Coeff of Paulo 15.2 H, Plt Count 218, MPV 10.3, Immature Gran % (Auto) 0.500, Neut % (Auto) 68.7, Lymph % (Auto) 17.7 L, [place] % (Auto) 9.7, Eos % (Auto) 3.0, Baso % (Auto) 0.4, Absolute Neuts (auto) 6.5, Absolute Lymphs (auto) 1.69, Nucleated RBC % 0, ESR 27, Sodium 137, P otassium 3.5, Chloride 106, Carbon Dioxide 30.0, Anion Gap 1 L, BUN 17, Creatinine 1.49 H, Estim Creat Clear Calc 39.13, Est GFR (MDRD) Af Amer 45 L, Est GFR (MDRD) Non-Af 37 L, BUN/Creatinine Ratio 11.4, Glucose 82, Lactic Acid 0.8, Uric Acid 8.7 H, Calcium 9.4, C-React Prot Ext Range 50.80 H 11/01/23 15:25: Procalcitonin 0.10 H 11/01/23 15:40: POC Glucose 52 L 11/01/23 16:12: POC Glucose 75 11/01/23 22:12: POC Glucose 229 H 11/02/23 06:31: POC Glucose 143 H 11/02/23 07:32: WBC 10.1, RBC 3.44 L, Hgb 9.7 L, Hct 31.5 L, MCV 91.6, MCH 28.2, MCHC 30.8 L, RDW Std Deviation 51.3 H, RDW Coeff of Paulo 15.2 H, Plt Count 211, MPV 10.7, Immature Gran % (Auto) 0.600, Neut % (Auto) 73.6 H, Lymph % (Auto) 14.1 L, [place] % (Auto) 11.1 H, Eos % (Auto) 0.2, Baso % (Auto) 0.4, Absolute Neuts (auto) 7.4, Absolute Lymphs (auto) 1.42, Nucleated RBC % 0, Sodium 137, Potassium 3.7, Chloride 110 H, Carbon Dioxide 26.0, Anion Gap 1 L, BUN 27 H, Creatinine 1.46 H, Estim Creat Clear Calc 41.31, Est GFR (MDRD) Af Amer 46 L, Est GFR (MDRD) Non-Af 38 L, BUN/Creatinine Ratio 18.5, Glucose 137 H, Calcium 8.9, Total Bilirubin 0.50, AST 19, ALT 27, Alkaline Phosphatase 120 H, Total Protein 5.6 L, Albumin 2.3 L, Globulin 3.3, Albumin/Globulin Ratio 0.7 L Radiography Diagnostic Testing: Radiology Impression Ankle X-Ray 11/01/23 11:16 IMPRESSION: Soft tissue swelling. No acute fracture seen. Electronically Signed: Bernardo Queen MD at 12:19 EST , Physical Exam Narrative GENERAL: cooperative HEENT: Atraumatic; normocephalic EYES; Anicteric, Normal Conjunctiva NECK; supple, normal thyroid, RESPIRATORY: Diminished to auscultation CARDIOVASCULAR: Regular S1 S2, GI: soft, normoactive bowel sounds, : No Renal angle tenderness; EXTREMITIES: No edema, no clubbing, MUSCULOSKELETAL: Some tenderness over the left ankle NEURO: Awake; no lateralizing signs. SKIN: No Rash PSYCH; Flat affect Assessment & Plan Assessment/Plan (1) Cellulitis: QUALIFIERS: Site of cellulitis: extremity Site of cellulitis of extremity: lower extremity Laterality: left Qualified Code(s): L03.116 - Cellulitis of left lower limb (2) Gout: QUALIFIERS: Gout site: ankle Encounter type: initial encounter Chronicity: chronic Laterality: left Presence of tophus: without tophus PLAN: Plan Patient is a 68-year-old lady who presented with left ankle swelling 1. Left ankle swelling ? Suspected to be secondary to acute gouty arthritis admitted to regular nursing floor for symptom management. There was also a question of possible cellulitis patient placed on antibiotics cultures sent 2. Chronic kidney disease stage IIIb ? Kidney function at baseline 3. History of submassive PE with right ventricular strain ? Patient is on apixaban continue 4. Essential hypertension ? Patient blood pressure low on admission her antihypertensives held 5. Depression ? Patient psychotropic medications held in view of her significant encephalopathy 6. Class III obesity with BMI of 44.6 ? Complicating care ? Weight loss advised 7. Diabetes mellitus type II -patient's oral hypoglycemics held. Placed on long acting insulin, Accu-Cheks a.c. and at bedtime and covered with sliding scale insulin 8. Anemia - Secondary to chronic disorder monitoring H&H and transfuse if patient becomes symptomatic or hemoglobin falls below 7 9. Chronic hypoxic respiratory failure ? Multifactorial including obesity hypoventilation syndrome patient is on baseline 2 L at rest 10. Obstructive sleep apnea ? CPAP therapy at night 11. Depression with anxiety ? Patient is on duloxetine as well as amitriptyline did continue 12. DVT prophylaxis ? Patient is on apixaban Time spent in the patient's overall evaluation,decision-making process, review of diagnostic data, adjustment of management, discussion with other providers, nursing nursing and ancillary staff involved in patient's care documentation 50 Minutes Charges/Coding Visit Charges Inpatient E&M: [address] [facility] Hosp L3
[2023-11-02] MEDS: 0.9% Normal Saline (1000mL) 1,000 ML 150 ML IV ×2 (09:54→11:21)
[2023-11-02] MEDS: Pantoprazole Sodium 40 MG Tablet PO ×2 (09:54→22:00)
[2023-11-02] MEDS: DULoxetine Hcl 60 MG Capsule 120 MG PO (09:54)
[2023-11-02] MEDS: APIXABAN 5 MG TABLET PO ×2 (09:54→21:59)
[2023-11-02 09:55] VITALS: BP 105/70; PULSE 71
[2023-11-02] MEDS: Metoprolol Tartrate 25 MG Tablet 12.5 MG PO ×2 (09:55→22:00)
[2023-11-02] MEDS: Ezetimibe 10 MG Tablet PO (09:55)
[2023-11-02] MEDS: Ursodiol 250 MG Tablet PO (09:55)
[2023-11-02 10:00] VITALS: BP 105/70; PULSE 71; RESP 18; TEMP 36.6; O2SAT 97
[2023-11-02] MEDS: Pregabalin 75 MG Capsule 150 MG PO ×2 (10:01→22:00)
[2023-11-02] MEDS: Cholestyramine/Sucrose 4 GM/PACKET PO (11:48)
[2023-11-02 12:20] LABS: Bedside Glucose 105 mg/dL (74-106)
--- NOTE | 2023-11-02 14:34 | CHAPLAIN ---
Type of Pastoral Visit _x__ Initial Visit ___ Follow-up Visit ___ On-call Visit ___ General Patient Visit ___ Spiritual Assessment ___ Family Conference ___ Bereavement ___ Rapid Response ___ Code Blue ___ Other (describe below) Pastoral Care Referral From _x__ Patient ___ Family ___ Nurse ___ Physician ___ Roving Weight Gauger ___ Naval Science Teacher ___ Other (describe below) Sacrament/Intervention _x__ Active listening ___ Anointing ___ Nondenominational _x__ Bereavement ___ Communion ___ [place] exploration ___ _x__ Life review _x__ Prayer ___ Reconciliation ___ Sacrament of Sick _x__ Supportive presence ___ Wedding ___ Other (describe below) Pastoral Comments after a brief update on health issues by this patient who has been seen previously, the patient reveals that her SO last night; SO had been a frequent patient in this hospital and was often visited by this patient financial representative; most of the discussion that followed revolved around her own life story and her past grief experiences; questions were asked about this patient's coping ability and support; pt is to have another major surgery but it is not yet scheduled; pt is relaxed and shows no concern about having that surgery delayed; pt welcomes the presence and prayers of this patient financial representative at this critical time
--- NOTE | 2023-11-02 15:20 | CASEMGMT ---
KALI ZAMORA chart review: Patient was admitted 10/02-10/06/23 for septic shock and 09/20/23-09/28/23 for PE. Patient was discharged to [facility]. See assessment from 09/21/23. Patient returned to [facility] ED 11/01/23 left ankle pain and swelling. Podiatry consulted and suspect acute goat flare, questionable cellulitis. Currently on IV Vanco and Zosyn. KALI ZAMORA in to discuss discharge and readmission with patient. Patient states she was discharged from [facility] 2 weeks ago. Patient declined need for HHC. Patient states she has not seen PCP yet. Patient states she had been taking medications as prescribed. Patient declines HHC at discharge. Patient to discharge home with son with follow-up plans in place.
[2023-11-02 15:59] VITALS: BP 116/75; PULSE 76; RESP 18; TEMP 36.4; O2SAT 94
[2023-11-02 16:11] LABS: Bedside Glucose 82 mg/dL (74-106)
[2023-11-02] MEDS: Vancomycin HCl 1,500 MG in 0.9% Normal Saline (500mL Bag) 500 ML 250 MG IV (18:16)
--- NOTE | 2023-11-02 21:22 | CPS ---
Patient refused PAP therapy for the night.
[2023-11-02 21:47] VITALS: BP 122/79; PULSE 76; RESP 18; TEMP 36.4; O2SAT 94
[2023-11-02] MEDS: Amitriptyline 100 MG Tablet PO (21:59)
[2023-11-02 22:00] VITALS: BP 122/79; PULSE 76
[2023-11-02] MEDS: Insulin Glargine-YFGN 100 UNIT/ML Pen 20 UNIT SC (22:06)
[2023-11-02 22:45] LABS: Bedside Glucose 123 mg/dL (74-106)
[2023-11-03 03:50] VITALS: BP 126/74; PULSE 78; RESP 18; TEMP 36.3; O2SAT 98
[2023-11-03] MEDS: Acetaminophen 500 MG Tablet 1000 MG PO (06:20)
[2023-11-03] MEDS: Piperacil/Tazobactam 3.375 GM in 0.9% Normal Saline (50mL MB+) 50 ML IV (06:21)
[2023-11-03 07:30] LABS: Basophil# 0.03 X10^3/uL; Basophil% 0.4 % (0-1); Eosinophil# 0.83 X10^3/uL; Eosinophils% 11.6 % (0-5); Hematocrit 32.2 % (37-47); Hemoglobin 9.8 g/dL (12.0-15.0); Lymphocyte % 22.4 % (19-41); Mean Corp Hgb Conc 30.4 g/dL (32-36); Mean Corpuscular Hgb 28.7 pg (27.0-32.0); Mean Corpuscular Volume 94.4 fL (81-99); Mean Platelet Vol. 11.4 fl (6.2-12.0); Monocyte% 9.8 % (0-10); NRBC Flagged by Analyzer 0 % (0-5); Neutrophil # 3.95 X10^3/uL (2.7-7.7); Neutrophil % 55.2 % (47-70); Platelet Count 191 K/mm3 (150-450); RBC Distribution Width CV 15.3 % (11.6-14.6); RBC Distribution Width SD 52.6 fl (35.1-43.9); Red Blood Count 3.41 M/mm3 (4.2-5.4); White Blood Count 7.2 K/mm3 (4.4-11.0)
--- NOTE | 2023-11-03 07:32 | PCM.PN.HOSP ---
Reason for Visit Reason for Visit: Diagnoses Type 2 diabetes mellitus with hyperglycemia (11/01/23) Obstructive sleep apnea (adult) (pediatric) (11/01/23) Essential (primary) hypertension (11/01/23) Other pulmonary embolism without acute cor pulmonale (11/01/23) Gastro-esophageal reflux disease without esophagitis (11/01/23) Cellulitis of left lower limb (11/01/23) Cellulitis, unspecified (11/01/23) Gout, unspecified (11/01/23) Pain in left ankle and joints of left foot (11/01/23) Chronic kidney disease, stage 3b (11/01/23) USP (current) use of insulin (11/01/23) Dependence on other enabling machines and devices (11/01/23) Subjective Subjective Patient seen admit to some improvement in the left ankle swelling and pain. Plan is for patient to be discharged home Objective Data Objective Data Vital Signs: Vital Signs Temp Pulse Resp BP Pulse Ox O2 Del Method O2 Flow Rate 97.4 F L 78 18 126/74 H 98 Nasal Cannula 2 11/03/23 03:50 11/03/23 03:50 11/03/23 03:50 11/03/23 03:50 11/03/23 03:50 11/03/23 04:25 11/03/23 04:25 Oxygen Flow Rate (L/min) 2 Oxygen Delivery Method Nasal Cannula Weight: 105.687 kg Body Mass Index (BMI) 44.0 Intake & Output: Intake and Output for Last 24 Hours 11/01/23 11/02/23 11/03/23 23:59 23:59 23:59 Intake Total 2427.0 / 2427.0 2680.0 / 2680.0 1450 / 1450 Output Total 150 / 150 700 / 700 600 / 600 Balance 2277.0 / 2277.0 1980.0 / 1980.0 850 / 850 Lab / Micro Data 11/03/23 06:54 11/03/23 06:54 Labs: Laboratory Results - last 24 hr 11/02/23 07:32: WBC 10.1, RBC 3.44 L, Hgb 9.7 L, Hct 31.5 L, MCV 91.6, MCH 28.2, MCHC 30.8 L, RDW Std Deviation 51.3 H, RDW Coeff of Paulo 15.2 H, Plt Count 211, MPV 10.7, Immature Gran % (Auto) 0.600, Neut % (Auto) 73.6 H, Lymph % (Auto) 14.1 L, [place] % (Auto) 11.1 H, Eos % (Auto) 0.2, Baso % (Auto) 0.4, Absolute Neuts (auto) 7.4, Absolute Lymphs (auto) 1.42, Nucleated RBC % 0, Sodium 137, Potassium 3.7, Chloride 110 H, Carbon Dioxide 26.0, Anion Gap 1 L, BUN 27 H, Creatinine 1.46 H, Estim Creat Clear Calc 41.31, Est GFR (MDRD) Af Amer 46 L, Est GFR (MDRD) Non-Af 38 L, BUN/Creatinine Ratio 18.5, Glucose 137 H, Calcium 8.9, Total Bilirubin 0.50, AST 19, ALT 27, Alkaline Phosphatase 120 H, Total Protein 5.6 L, Albumin 2.3 L, Globulin 3.3, Albumin/Globulin Ratio 0.7 L 11/02/23 11:45: POC Glucose 105 11/02/23 15:49: POC Glucose 82 11/02/23 22:05: POC Glucose 123 H 11/03/23 06:54: WBC 7.2, RBC 3.41 L, Hgb 9.8 L, Hct 32.2 L, MCV 94.4, MCH 28.7, MCHC 30.4 L, RDW Std Deviation 52.6 H, RDW Coeff of Paulo 15.3 H, Plt Count 191, MPV 11.4, Immature Gran % (Auto) 0.600, Neut % (Auto) 55.2, Lymph % (Auto) 22.4, [place] % (Auto) 9.8, Eos % (Auto) 11.6 H, Baso % (Auto) 0.4, Absolute Neuts (auto) 4.0, Absolute Lymphs (auto) 1.60, Nucleated RBC % 0 Physical Exam Narrative GENERAL: cooperative HEENT: Atraumatic; normocephalic EYES; Anicteric, Normal Conjunctiva NECK; supple, normal thyroid, RESPIRATORY: Diminished to auscultation CARDIOVASCULAR: Regular S1 S2, GI: soft, normoactive bowel sounds, : No Renal angle tenderness; EXTREMITIES: No edema, no clubbing, MUSCULOSKELETAL: Some tenderness over the left ankle NEURO: Awake; no lateralizing signs. SKIN: No Rash PSYCH; Flat affect Assessment & Plan Assessment/Plan (1) Cellulitis: QUALIFIERS: Laterality: left Site of cellulitis: extremity Site of cellulitis of extremity: lower extremity Qualified Code(s): L03.116 - Cellulitis of left lower limb (2) Gout: QUALIFIERS: Chronicity: chronic Encounter type: initial encounter Gout site: ankle Laterality: left Presence of tophus: without tophus PLAN: Plan Patient is a 68-year-old lady who presented with left ankle swelling 1. Left ankle swelling ? Suspected to be secondary to acute gouty arthritis admitted to regular nursing floor for symptom management. There was also a question of possible cellulitis patient placed on antibiotics cultures sent ? Significant improvement in patient swelling and pain plan is for patient to be discharged home with allopurinol as well as prednisone and cefdinir for 5 days 2. Chronic kidney disease stage IIIb ? Kidney function at baseline 3. History of submassive PE with right ventricular strain ? Patient is on apixaban continue 4. Essential hypertension ? Patient blood pressure low on admission her antihypertensives held 7. Class III obesity with BMI of 44.6 ? Complicating care ? Weight loss advised 7. Diabetes mellitus type II -patient's oral hypoglycemics held. Placed on long acting insulin, Accu-Cheks a.c. and at bedtime and covered with sliding scale insulin 8. Anemia - Secondary to chronic disorder monitoring H&H and transfuse if patient becomes symptomatic or hemoglobin falls below 7 9. Chronic hypoxic respiratory failure ? Multifactorial including obesity hypoventilation syndrome patient is on baseline 2 L at rest 10. Obstructive sleep apnea ? CPAP therapy at night 11. Depression with anxiety ? Patient is on duloxetine as well as amitriptyline did continue 12. DVT prophylaxis ? Patient is on apixaban Time spent in the patient's overall evaluation,decision-making process, review of diagnostic data, adjustment of management, discussion with other providers, nursing nursing and ancillary staff involved in patient's care documentation 50 Minutes
[2023-11-03 07:57] LABS: Anion Gap 1 (5-15); BUN 27 mg/dL (7-18); BUN/Creat Ratio 16.9 RATIO (10-20); Calcium,Total 9.4 mg/dL (8.5-10.1); Chloride 116 mmol/L (98-107); EST Glomerular Filtration Rate 34 mL/min (>60); Est Glom Filt Rate - Afr Amer 41 mL/min (>60); Estimated Creatinine Clearance 37.69 ml/min; Glucose 111 mg/dL (74-106); Phosphorus 3.6 mg/dL (2.5-4.9); Potassium 4.2 mmol/L (3.5-5.1); Sodium Level 142 mmol/L (136-145)
[2023-11-03 08:01] LABS: Bedside Glucose 110 mg/dL (74-106)
[2023-11-03 09:25] VITALS: BP 131/89; PULSE 75; RESP 16; TEMP 36.5; O2SAT 95
[2023-11-03] MEDS: Aspirin E.C. 81 MG Tablet PO (09:37)
[2023-11-03] MEDS: DULoxetine Hcl 60 MG Capsule 120 MG PO (09:37)
[2023-11-03] MEDS: Ezetimibe 10 MG Tablet PO (09:38)
[2023-11-03] MEDS: APIXABAN 5 MG TABLET PO (09:38)
[2023-11-03] MEDS: Ursodiol 250 MG Tablet PO (09:38)
[2023-11-03] MEDS: Pantoprazole Sodium 40 MG Tablet PO (09:38)
[2023-11-03 09:43] VITALS: PULSE 75
[2023-11-03] MEDS: Pregabalin 75 MG Capsule 150 MG PO (09:43)
[2023-11-03] MEDS: Metoprolol Tartrate 25 MG Tablet 12.5 MG PO (09:43)
--- NOTE | 2023-11-03 10:10 | DS.PCM_ITS ---
Providers Date of Admission: 11/01/23 Date of Discharge: 11/03/23 Primary Care Physician: Dr. Rizwan Clark MD Consultations 11/01/23 14:49 Consult: Podiatry Routine Consulting Provider: Mart Keene Reason for Consult: left ankle swelling and pain, ifxn vs gout EMERGENT Consult: No MD Notified: Yes Date Notified: 11/01/23 Time Notified: 13:36 Method of Notification: ED Physician Initiated Reason For Visit: LEFT ANKLE SWELLING AND PAIN Diagnosis Discharge Diagnosis (1) Cellulitis: Status: Acute Code(s): L03.90 - Cellulitis, unspecified Qualifiers: Site of cellulitis: extremity Site of cellulitis of extremity: lower extremity Laterality: left Qualified Code(s): L03.116 - Cellulitis of left lower limb (2) Gout: Status: Acute Code(s): M10.9 - Gout, unspecified Qualifiers: Gout site: ankle Encounter type: initial encounter Chronicity: chronic Laterality: left Presence of tophus: without tophus Plan Patient is a 68-year-old lady who presented with left ankle swelling 1. Left ankle swelling ? Suspected to be secondary to acute gouty arthritis admitted to regular nursing floor for symptom management. There was also a question of possible cellulitis patient placed on antibiotics cultures sent ? Significant improvement in patient swelling and pain plan is for patient to be discharged home with allopurinol as well as prednisone and cefdinir for 5 days 2. Chronic kidney disease stage IIIb ? Kidney function at baseline 3. History of submassive PE with right ventricular strain ? Patient is on apixaban continue 4. Essential hypertension ? Patient blood pressure low on admission her antihypertensives held 7. Class III obesity with BMI of 44.6 ? Complicating care ? Weight loss advised 7. Diabetes mellitus type II -patient's oral hypoglycemics held. Placed on long acting insulin, Accu-Cheks a.c. and at bedtime and covered with sliding scale insulin 8. Anemia - Secondary to chronic disorder monitoring H&H and transfuse if patient becomes symptomatic or hemoglobin falls below 7 9. Chronic hypoxic respiratory failure ? Multifactorial including obesity hypoventilation syndrome patient is on baseline 2 L at rest 10. Obstructive sleep apnea ? CPAP therapy at night 11. Depression with anxiety ? Patient is on duloxetine as well as amitriptyline did continue 12. DVT prophylaxis ? Patient is on apixaban Time spent in the patient's overall evaluation,decision-making process, review of diagnostic data, adjustment of management, discussion with other providers, nursing nursing and ancillary staff involved in patient's care documentation 50 Minutes Medications at Discharge Home Medications CPAP #1 ea 09/24/20 aspirin 81 mg tablet,delayed release 81 mg PO DAILY heart health 09/24/20 blood pressure monitor (Blood Pressure Kit) #1 ea 09/24/20 blood sugar diagnostic (Accu-Chek Christi Plus test strips) #10 ea 09/24/20 blood-glucose meter #1 ea 09/24/20 lancets (Accu-Chek Softclix Lancets) #100 ea 09/24/20 latanoprost 0.005 % eye drops 1 drp ophthalmic (eye) QHS MACULAR DEGENRATION 02/24/21 simethicone 80 mg chewable tablet 80 mg PO 4X/DAY PRN Flatulence #30 tabs 12/07/21 vitamin E 268 mg (400 unit) capsule 800 unit PO DAILY vitamin #60 caps 02/08/22 Bilateral wrist splints #2 ea 06/07/22 pen needle, diabetic 32 gauge x 1/4 (Novofine 32) #200 ea 07/27/22 cholestyramine (with sugar) 4 gram oral powder 4 g PO DAILY digestion #348.6 grams 08/12/22 fluticasone propionate 50 mcg/actuation nasal spray,suspension 2 spray intranasal DAILY PRN Nasal Congestion 09/06/22 pantoprazole 40 mg tablet,delayed release 40 mg PO BID reflux #180 tabs 01/04/23 ezetimibe 10 mg tablet (Zetia) 10 mg PO DAILY #60 tabs 02/28/23 insulin lispro 100 unit/mL subcutaneous pen (Humalog KwikPen (U-100) Insulin) 12 unit subcut TID 02/28/23 Jardiance 10 mg tablet (empagliflozin) 10 mg PO DAILY #30 tabs 03/14/23 denosumab 60 mg/mL subcutaneous syringe (Prolia) 60 mg subcut [id number] bone health #1 mL 03/17/23 duloxetine 60 mg capsule,delayed release See Rx Instructions .Route .COMPLEX #180 caps 08/01/23 loratadine 10 mg tablet 10 mg PO DAILY allergies #90 tabs 08/23/23 pregabalin 150 mg capsule 150 mg PO BID pain #180 caps 08/23/23 rimegepant 75 mg disintegrating tablet (Nurtec ODT) 75 mg PO DAILY PRN migraine headache #8 tabs 08/23/23 metoprolol tartrate 25 mg tablet 12.5 mg (1/2 x 25 mg) PO BID #30 tabs 09/22/23 apixaban 5 mg tablet (Eliquis) 5 mg PO BID BLOOD THINNER 10/02/23 ursodiol 250 mg tablet 250 mg PO DAILY gallstones 10/02/23 linaclotide 145 mcg capsule (Linzess) 145 mcg PO DAILY BOWELS 10/03/23 albuterol sulfate 90 mcg/actuation aerosol inhaler (Ventolin HFA) 1 - 2 puff inhalation Q4H PRN Wheezing 11/01/23 amitriptyline 100 mg tablet 200 mg PO QHS sleep 11/01/23 cholecalciferol (vitamin D3) 1,250 mcg (50,000 unit) capsule 1,250 mcg PO LUCIO vitamin 11/01/23 insulin degludec 100 unit/mL (3 mL) subcutaneous pen (Tresiba FlexTouch U-100 insulin) 35 unit subcut QHS 11/01/23 oxycodone 5 mg tablet 2.5 mg PO Q4H PRN pain or shortness of breath 11/01/23 sennosides 8.6 mg-docusate sodium 50 mg tablet (Stimulant Laxative Plus) 1 tab- cap PO DAILY PRN STIMULANT 11/01/23 allopurinol 100 mg tablet 100 mg PO DAILY #60 tabs 11/03/23 cefdinir 300 mg capsule 300 mg PO BID #10 caps 11/03/23 prednisone 20 mg tablet 20 mg PO BID #14 tabs 11/03/23 Physical Exam Narrative GENERAL: cooperative HEENT: Atraumatic; normocephalic EYES; Anicteric, Normal Conjunctiva NECK; supple, normal thyroid, RESPIRATORY: Diminished to auscultation CARDIOVASCULAR: Regular S1 S2, GI: soft, normoactive bowel sounds, : No Renal angle tenderness; EXTREMITIES: No edema, no clubbing, MUSCULOSKELETAL: Some tenderness over the left ankle NEURO: Awake; no lateralizing signs. SKIN: No Rash PSYCH; Flat affect Weight / BMI Weight Weight: 105.687 kg Body Mass Index (BMI) 44.0 ABG / Lab / Microbiology Data 11/03/23 06:54 11/03/23 06:54 Laboratory: Laboratory Results - last 24 hr 11/02/23 11:45: POC Glucose 105 11/02/23 15:49: POC Glucose 82 11/02/23 22:05: POC Glucose 123 H 11/03/23 06:26: POC Glucose 110 H 11/03/23 06:54: WBC 7.2, RBC 3.41 L, Hgb 9.8 L, Hct 32.2 L, MCV 94.4, MCH 28.7, MCHC 30.4 L, RDW Std Deviation 52.6 H, RDW Coeff of Paulo 15.3 H, Plt Count 191, MPV 11.4, Immature Gran % (Auto) 0.600, Neut % (Auto) 55.2, Lymph % (Auto) 22.4, Tompkins % (Auto) 9.8, Eos % (Auto) 11.6 H, Baso % (Auto) 0.4, Absolute Neuts (auto) 4.0, Absolute Lymphs (auto) 1.60, Nucleated RBC % 0, Sodium 142, Potassium 4.2, Chloride 116 H, Carbon Dioxide 25.0, Anion Gap 1 L, BUN 27 H, Creatinine 1.60 H, Estim Creat Clear Calc 37.69, Est GFR (MDRD) Af Amer 41 L, Est GFR (MDRD) Non-Af 34 L, BUN/Creatinine Ratio 16.9, Glucose 111 H, Calcium 9.4, Phosphorus 3.6, Magnesium 2.0 D/C Instructions Discharge Diet: 1800 Calorie Control Diet Discharge Activity: Return to Normal Activity Call your doctor if you observe: Fever of 101 or Higher, Shortness of breath, Fainting spells and Chest pain Meaningful Use Info Meaningful Use Diagnoses (Choose all that apply): None applicable Discharge Plan Admission Admit Date/Time: 11/01/23 13:26 Attending Provider: Fernando Lindo Primary Care Provider: Rizwan Clark Consulting Providers: Mart Keene; Micki Silva Discharge Orders/Prescriptions Prescriptions: New allopurinol 100 mg tablet 100 mg PO DAILY Qty: 60 0RF prednisone 20 mg tablet 20 mg PO BID Qty: 14 0RF cefdinir 300 mg capsule 300 mg PO BID Qty: 10 0RF Continued (DME) lancets [Accu-Chek Softclix Lancets] Misc See Rx Instructions .ROUTE .MEDSUPPLY Qty: 100 Rx Instructions: As directed, Test 4 times daily before meals and at bedtime (DME) Accu-Chek Christi Plus test strp Strip See Rx Instructions .ROUTE .MEDSUPPLY Qty: 10 Rx Instructions: As directed; Test 4 times daily before meals and at bedtime (DME) CPAP See Rx Instructions .Route .MEDSUPPLY Qty: 1 Rx Instructions: 14 cm H2O (DME) blood-glucose meter Misc See Rx Instructions .ROUTE .MEDSUPPLY Qty: 1 Rx Instructions: As directed (DME) blood pressure monitor [Blood Pressure Kit] Kit See Rx Instructions .ROUTE .MEDSUPPLY Qty: 1 Rx Instructions: As directed aspirin 81 mg tablet,delayed release (DR/EC) 81 mg PO DAILY latanoprost 0.005 % drops 1 drp ophthalmic (eye) QHS vitamin E 400 unit capsule 800 unit PO DAILY Qty: 60 5RF (DME) pen needle, diabetic [Novofine 32] 32 gauge x 1/4 needle See Rx Instructions .ROUTE .MEDSUPPLY Qty: 200 6RF Rx Instructions: As directed; 4x/day (DME) Bilateral wrist splints See Rx Instructions .Route .MEDSUPPLY Qty: 2 0RF Rx Instructions: As directed insulin lispro [Humalog KwikPen Insulin] 100 unit/mL insulin pen 12 unit subcut TID Patient Comments: PT STATES SHE ONLY TAKES 12 UNITS IF HER BS IS 150+. DOES NOT DO SLIDING SCALE Rx Instructions: 12u with meals, 6u with snacks. +SSI 180-210+2; 211-240+3; 241-300+5; >300 +7 MDD 50 pantoprazole 40 mg tablet,delayed release (DR/EC) 40 mg PO BID Qty: 180 1RF loratadine 10 mg tablet 10 mg PO DAILY Qty: 90 1RF Nurtec ODT 75 mg tablet,disintegrating 75 mg PO DAILY PRN (Reason: migraine headache) Qty: 8 5RF pregabalin 150 mg capsule 150 mg PO BID Qty: 180 1RF fluticasone propionate 50 mcg/actuation spray,suspension 2 spray INTRANASAL DAILY PRN (Reason: Nasal Congestion) Rx Instructions: administer into each nostril sennosides-docusate sodium [Stimulant Laxative Plus] 8.6-50 mg tablet 1 tab-cap PO DAILY PRN (Reason: STIMULANT) Patient Comments: PT TAKES WITH OXYCODONE oxycodone 5 mg tablet 2.5 mg PO Q4H PRN (Reason: pain or shortness of breath) albuterol sulfate [Ventolin HFA] 90 mcg/actuation HFA aerosol inhaler 1 - 2 puff inhalation Q4H PRN (Reason: Wheezing) amitriptyline 100 mg tablet 200 mg PO QHS Patient Comments: PT STATES SHE USUALLY ONLY TAKES 100MG AT BEDTIME. cholecalciferol (vitamin D3) 1,250 mcg (50,000 unit) capsule 1,250 mcg PO LUCIO insulin degludec [Tresiba FlexTouch U-100] 100 unit/mL (3 mL) insulin pen 35 unit SC QHS metoprolol tartrate 25 mg tablet 12.5 mg PO BID Qty: 30 1RF ursodiol 250 mg tablet 250 mg PO DAILY Eliquis 5 mg Tablet 5 mg PO BID Linzess 145 mcg capsule 145 mcg PO DAILY Rx Instructions: TAKE 1 CAPSULE BY MOUTH IN THE MORNING simethicone 80 mg tablet,chewable 80 mg PO 4X/DAY PRN (Reason: Flatulence) Qty: 30 1RF cholestyramine (with sugar) 4 gram powder 4 g PO DAILY Qty: 348.6 0RF Rx Instructions: administer w/meal; avoid other meds within 1hr before or 4-6hr after dose ezetimibe [Zetia] 10 mg tablet 10 mg PO DAILY Qty: 60 2RF Jardiance 10 mg tablet 10 mg PO DAILY Qty: 30 6RF Prolia 60 mg/mL syringe 60 mg subcut [id number] Qty: 1 0RF duloxetine 60 mg capsule,delayed release(DR/EC) See Rx Instructions .ROUTE .COMPLEX Qty: 180 1RF Dose Instruction: TAKE 2 CAPSULES BY MOUTH DAILY Rx Instructions: TAKE 2 CAPSULES BY MOUTH DAILY Referrals / Follow Up: Rizwan Clark MD [Primary Care Provider] - Disposition Disposition (needs filled in before D/C Order can be placed): Home Health Service Charges/Coding Visit Charges Inpatient E&M: 30119 Disch Hosp >30min
[2023-11-03] MEDS: Cholestyramine/Sucrose 4 GM/PACKET PO (11:43)
--- NOTE | 2023-11-03 11:59 | CASEMGMT ---
Patient has order for discharge today. RN CM in to discuss needs at discharge. Patient denies needs or help at discharge. Patient states she lives with son. Patient states she will follow-up with PCP. Patient had no further questions or concerns.
[2023-11-03 12:04] LABS: Bedside Glucose 110 mg/dL (74-106)
--- NOTE | 2023-11-03 12:22 | CASEMGMT ---
Social Work - Grief/Loss Notified by staff that patient's halfway partner this week. Met with patient in room, introducing to self and social work role; reason for visit to check in on patient relating to loss of partner Chau. Patient talkative, and reports Chau on Tuesday (day of patient's admission). Patient reports relationship with Chau for 8 years, and that Chau at [facility], while under hospice care. Patient shared history of loss and grief from patient's father who due to complication from a MVA, patient's mother to [place], patient's first , and then patient's partner Chau. Much supportive listening provided to patient, discussed grief, and importance of self care. Patient reports it hasn't hit me yet, regarding Chau's passing but voiced understanding that may have a hard time down the road. Patient reports has been told before by doctors that patient has codependency issues, and thrives on being needed. Gently broached with patient that counseling and additional support may be of benefit to patient as patient processes loss, grief and life changes in not having Chau as a focus of care. Supportive listening and emotional support offered to patient. Provided patient with list of counselors, 24 hour hotline number for mental health, as well as information on local bereavement services through hospice. Patient accepted information and thanked mental health social worker for time. Patient verbally agrees to call for help if develops emotional distress. Patient does report plan to slowly get home back in order and sort through Chau's things. Patient denies any needs for home going. Reports to have a son who is supportive. Reports can order food delivery if does not feel up to going out of the house for a time, as patient recuperates from this illness. -TOMMIE Quinteros
--- NOTE | 2023-11-03 12:48 | PHA.DC_ITS ---
Pharmacy [facility] has performed discharge medication reconciliation and counseling for this patient. The patient's discharge medication list was reviewed for discrepancies and discrepancies were resolved. The patient was counseled on the following discharge medications and changes in medications for homegoing were reviewed. 1. ALLOPURINOL 2. PREDNISONE 3. OMNICEF The Reason for Use, instructions for use, and potential side effects were reviewed for all new medications. The patient's questions regarding all of their medications were answered. The patient was able to verbally demonstrate an understanding of their discharge medications. Medications at Discharge Home Medications CPAP #1 ea 09/24/20 aspirin 81 mg tablet,delayed release 81 mg PO DAILY heart health 09/24/20 blood pressure monitor (Blood Pressure Kit) #1 ea 09/24/20 blood sugar diagnostic (Accu-Chek Christi Plus test strips) #10 ea 09/24/20 blood-glucose meter #1 ea 09/24/20 lancets (Accu-Chek Softclix Lancets) #100 ea 09/24/20 latanoprost 0.005 % eye drops 1 drp ophthalmic (eye) QHS MACULAR DEGENRATION 02/24/21 simethicone 80 mg chewable tablet 80 mg PO 4X/DAY PRN Flatulence #30 tabs 12/07/21 vitamin E 268 mg (400 unit) capsule 800 unit PO DAILY vitamin #60 caps 02/08/22 Bilateral wrist splints #2 ea 06/07/22 pen needle, diabetic 32 gauge x 1/4 (Novofine 32) #200 ea 07/27/22 cholestyramine (with sugar) 4 gram oral powder 4 g PO DAILY digestion #348.6 grams 08/12/22 fluticasone propionate 50 mcg/actuation nasal spray,suspension 2 spray intranasal DAILY PRN Nasal Congestion 09/06/22 pantoprazole 40 mg tablet,delayed release 40 mg PO BID reflux #180 tabs 01/04/23 ezetimibe 10 mg tablet (Zetia) 10 mg PO DAILY #60 tabs 02/28/23 insulin lispro 100 unit/mL subcutaneous pen (Humalog KwikPen (U-100) Insulin) 12 unit subcut TID 02/28/23 Jardiance 10 mg tablet (empagliflozin) 10 mg PO DAILY #30 tabs 03/14/23 denosumab 60 mg/mL subcutaneous syringe (Prolia) 60 mg subcut [id number] bone health #1 mL 03/17/23 duloxetine 60 mg capsule,delayed release See Rx Instructions .Route .COMPLEX #180 caps 08/01/23 loratadine 10 mg tablet 10 mg PO DAILY allergies #90 tabs 08/23/23 pregabalin 150 mg capsule 150 mg PO BID pain #180 caps 08/23/23 rimegepant 75 mg disintegrating tablet (Nurtec ODT) 75 mg PO DAILY PRN migraine headache #8 tabs 08/23/23 metoprolol tartrate 25 mg tablet 12.5 mg (1/2 x 25 mg) PO BID #30 tabs 09/22/23 apixaban 5 mg tablet (Eliquis) 5 mg PO BID BLOOD THINNER 10/02/23 ursodiol 250 mg tablet 250 mg PO DAILY gallstones 10/02/23 linaclotide 145 mcg capsule (Linzess) 145 mcg PO DAILY BOWELS 10/03/23 albuterol sulfate 90 mcg/actuation aerosol inhaler (Ventolin HFA) 1 - 2 puff inhalation Q4H PRN Wheezing 11/01/23 amitriptyline 100 mg tablet 200 mg PO QHS sleep 11/01/23 cholecalciferol (vitamin D3) 1,250 mcg (50,000 unit) capsule 1,250 mcg PO LUCOI vitamin 11/01/23 insulin degludec 100 unit/mL (3 mL) subcutaneous pen (Tresiba FlexTouch U-100 insulin) 35 unit subcut QHS 11/01/23 oxycodone 5 mg tablet 2.5 mg PO Q4H PRN pain or shortness of breath 11/01/23 sennosides 8.6 mg-docusate sodium 50 mg tablet (Stimulant Laxative Plus) 1 tab- cap PO DAILY PRN STIMULANT 11/01/23 allopurinol 100 mg tablet 100 mg PO DAILY #60 tabs 11/03/23 cefdinir 300 mg capsule 300 mg PO BID #10 caps 11/03/23 prednisone 20 mg tablet 20 mg PO BID #14 tabs 11/03/23
== END 2023-11-03 13:11 | disposition home health service (06) | DRG 554 ==
LOC: ED 13:15 → MS3 13:42
PROVIDERS: Admitting Provider Internal Medicine; Emergency Provider Emergency Medicine; PCP Family Medicine; Visit Provider Internal Medicine
DX: M10.072 Idiopathic gout, left ankle and foot (principal); J96.11 Chronic respiratory failure with hypoxia; E66.2 Morbid (severe) obesity with alveolar hypoventilation; L03.116 Cellulitis of left lower limb; Z68.41 Body mass index [BMI] 40.0-44.9, adult; D63.8 Anemia in other chronic diseases classified elsewhere; E11.22 Type 2 diabetes mellitus with diabetic chronic kidney disease; N18.32 Chronic kidney disease, stage 3b; E11.40 Type 2 diabetes mellitus with diabetic neuropathy, unspecified; Z79.4 Long term (current) use of insulin; I12.9 Hypertensive chronic kidney disease with stage 1 through stage 4 chronic kidney disease, or unspecified chronic kidney disease; F32.A Depression, unspecified; M1A.9XX0 Chronic gout, unspecified, without tophus (tophi); K21.9 Gastro-esophageal reflux disease without esophagitis; E78.00 Pure hypercholesterolemia, unspecified; F41.9 Anxiety disorder, unspecified; M79.7 Fibromyalgia; Z79.01 Long term (current) use of anticoagulants; Z79.82 Long term (current) use of aspirin; Z79.84 Long term (current) use of oral hypoglycemic drugs; Z99.81 Dependence on supplemental oxygen; Z86.16 Personal history of COVID-19; Z86.718 Personal history of other venous thrombosis and embolism; Z86.711 Personal history of pulmonary embolism
CPT/HCPCS: 36415; 73610; 80048; 80053; 82962; 83605; 83735; 84100; 84145; 84550; 85025; 85652; 86140; 87040; 97162; 97166; 99284; J7030; J7040; J7050; A4216; J0295; J2405

== ENCOUNTER → 2023-11-16 | Outpatient (CLI) | payer MEDICARE, SELFPAY ==
[2023-11-16 13:02] LABS: Vitamin B12 611 pg/mL (211-911); Vitamin D,25 Hydroxy 42.8 ng/mL
[2023-11-16 13:04] LABS: Anion Gap 3 (5-15); BUN 29 mg/dL (7-18); BUN/Creat Ratio 19.1 RATIO (10-20); Calcium,Total 11.4 mg/dL (8.5-10.1); Chloride 107 mmol/L (98-107); Creatinine, Serum 1.52 mg/dL (0.55-1.02); EST Glomerular Filtration Rate 36 mL/min (>60); Est Glom Filt Rate - Afr Amer 44 mL/min (>60); Glucose 154 mg/dL (74-106); Potassium 4.4 mmol/L (3.5-5.1); Sodium Level 138 mmol/L (136-145)
== END | disposition home or self-care (01) ==
LOC: BIMLAB 10:16
PROVIDERS: PCP Internal Medicine; Visit Provider Internal Medicine
DX: Z13.21 Encounter for screening for nutritional disorder (principal); E11.65 Type 2 diabetes mellitus with hyperglycemia; Z79.4 Long term (current) use of insulin; M81.0 Age-related osteoporosis without current pathological fracture; M10.9 Gout, unspecified
CPT/HCPCS: 36415; 80048; 82306; 82607; 83036; 84550

== ENCOUNTER → 2023-11-25 | Outpatient (CLI) | payer MEDICARE, SELFPAY ==
[2023-11-25 16:32] LABS: PTHIN 239.7 pg/mL (18.4-80.1)
== END | disposition home or self-care (01) ==
LOC: BIMLAB 13:17
PROVIDERS: PCP Internal Medicine; Visit Provider Internal Medicine
DX: E83.52 Hypercalcemia (principal)
CPT/HCPCS: 36415; 83970

== ENCOUNTER 2023-12-05 09:47 | Emergency (ER) | payer MEDICARE, SELFPAY ==
[2023-12-05 09:48] VITALS: BP 133/84; PULSE 68; PULSE 89; RESP 14; RESP 16; TEMP 36.4; O2SAT 96; O2SAT 97; BMI 41.8
--- NOTE | 2023-12-05 10:22 | EX.ED.DYSGE1 ---
HPI History of Present Illness Chief Complaint: Shortness of Breath Informant: patient Onset/Context/Timing Onset: Today Context: Gradual Onset Timing: Waxes and wanes Quality: Stabbing Location: Parasternal Worsened by: Deep breathing, coughing Relieved by: Nothing Narrative Narrative: Patient presents with chest pain and shortness of breath that began today. Patient states she woke up and was having some pain in her chest. Patient states it is over the parasternal area. Patient describes it as stabbing. Patient states it is worse with deep breathing and with coughing. Patient states that has been waxing and waning throughout the day. Patient admits to some shortness of breath with it. Patient denies any nausea or vomiting. Patient denies any diaphoresis. Patient denies any fevers or chills. Patient has a history of DVT and PE. Patient is currently on apixaban for this. [facility] Medical History Abnormal thyroid function test Anemia Anxiety Anxiety and depression Arthritis Back pain Bilateral lower extremity edema Blackout Chronic neck and back pain CKD (chronic kidney disease), stage III COVID-19 CPAP (continuous positive airway pressure) dependence Depression Diabetes Diabetes Dietary restriction Difficulty balancing when standing Difficulty swallowing Dizziness DVT (deep venous thrombosis) Elevated troponin Encounter for vitamin deficiency screening Essential hypertension Fatigue Fatty liver Fibromyalgia Fibrosis of liver Flu vaccine need GERD (gastroesophageal reflux disease) Glaucoma Gout Grief reaction Hematuria High cholesterol History of echocardiogram History of pain when walking History of renal disease History of stress test History of thyroid nodule Hx of phlebitis Hypercalcemia Hyperlipidemia Hypertension Insomnia Insulin dependent diabetes mellitus Leg cramps Limb weakness Liver disease Loss of hearing Lyme disease Macular degeneration Migraine headache Morbid obesity Myositis Non-smoker Obesity On home oxygen therapy [place] on CPAP Osteoporosis Polymyositis Respiratory failure Restless legs Sensorineural hearing loss of both ears Shoulder pain Sinusitis Sleep apnea Stroke/cerebrovascular accident Type 2 diabetes mellitus Vitamin D deficiency Wears glasses Home Medications CPAP #1 ea 09/24/20 [History Last Taken Unknown] blood pressure monitor (Blood Pressure Kit) #1 ea 09/24/20 [History Last Taken Unknown] blood sugar diagnostic (Accu-Chek Christi Plus test strips) #10 ea 09/24/20 [History Last Taken Unknown] blood-glucose meter #1 ea 09/24/20 [History Last Taken Unknown] lancets (Accu-Chek Softclix Lancets) #100 ea 09/24/20 [History Last Taken Unknown] latanoprost 0.005 % eye drops 1 drp ophthalmic (eye) QHS MACULAR DEGENRATION 02/24/21 [History Last Taken Unknown] simethicone 80 mg chewable tablet 80 mg PO 4X/DAY PRN Flatulence #30 tabs 12/07/21 [Rx Last Taken Unknown] vitamin E 268 mg (400 unit) capsule 800 unit PO DAILY vitamin #60 caps 02/08/22 [Rx Last Taken 11/01/23] Bilateral wrist splints #2 ea 06/07/22 [Rx Last Taken Unknown] pen needle, diabetic 32 gauge x 1/4 (Novofine 32) #200 ea 07/27/22 [Rx Last Taken Unknown] cholestyramine (with sugar) 4 gram oral powder 4 g PO DAILY digestion #348.6 grams 08/12/22 [Rx Last Taken Unknown] fluticasone propionate 50 mcg/actuation nasal spray,suspension 2 spray intranasal DAILY PRN Nasal Congestion 09/06/22 [History Last Taken Unknown] pantoprazole 40 mg tablet,delayed release 40 mg PO BID reflux #180 tabs 01/04/23 [Rx Last Taken 11/01/23] ezetimibe 10 mg tablet (Zetia) 10 mg PO DAILY #60 tabs 02/28/23 [Rx Last Taken 11/01/23] insulin lispro 100 unit/mL subcutaneous pen (Humalog KwikPen (U-100) Insulin) 12 unit subcut TID 02/28/23 [History Last Taken 10/31/23] Jardiance 10 mg tablet (empagliflozin) 10 mg PO DAILY #30 tabs 03/14/23 [Rx Last Taken 11/01/23] denosumab 60 mg/mL subcutaneous syringe (Prolia) 60 mg subcut [id number] bone health #1 mL 03/17/23 [Rx Last Taken Unknown] duloxetine 60 mg capsule,delayed release See Rx Instructions .Route .COMPLEX #180 caps 08/01/23 [Rx Last Taken 10/31/23] loratadine 10 mg tablet 10 mg PO DAILY allergies #90 tabs 08/23/23 [Rx Last Taken 11/01/23] pregabalin 150 mg capsule 150 mg PO BID pain #180 caps 08/23/23 [Rx Last Taken 11/01/23] rimegepant 75 mg disintegrating tablet (Nurtec ODT) 75 mg PO DAILY PRN migraine headache #8 tabs 08/23/23 [Rx Last Taken Unknown] albuterol sulfate 90 mcg/actuation aerosol inhaler (Ventolin HFA) 1 - 2 puff inhalation Q4H PRN Wheezing 11/01/23 [History Last Taken 09/19/23] insulin degludec 100 unit/mL (3 mL) subcutaneous pen (Tresiba FlexTouch U-100 insulin) 35 unit subcut QHS 11/01/23 [History Last Taken 10/31/23] allopurinol 100 mg tablet 100 mg PO DAILY #60 tabs 11/03/23 [Rx Last Taken Unknown] apixaban 5 mg tablet (Eliquis) 5 mg PO BID BLOOD THINNER #180 tabs 11/16/23 [Rx Last Taken Unknown] atorvastatin 40 mg tablet 40 mg PO QHS 11/16/23 [History Last Taken Unknown] cholecalciferol (vitamin D3) 1,250 mcg (50,000 unit) capsule 1,250 mcg PO LUCIO vitamin #14 caps 11/16/23 [Rx Last Taken Unknown] linaclotide 145 mcg capsule (Linzess) 145 mcg PO DAILY BOWELS #90 caps 11/16/23 [Rx Last Taken Unknown] omega-3 fatty acids 1,000 mg capsule 1,000 mg PO DAILY #90 caps 11/16/23 [Rx Last Taken Unknown] metoprolol tartrate 25 mg tablet 12.5 mg (1/2 x 25 mg) PO BID #60 tabs 11/21/23 [Rx Last Taken Unknown] ursodiol 250 mg tablet 250 mg PO BID gallstones 11/21/23 [History Last Taken Unknown] Allergy/AdvReac Type Severity Reaction Status Date / Time saliva substitute Allergy Severe Angioedema Verified 12/05/23 09:48 combination no.9 [From Biotene PBF] gemfibrozil AdvReac Severe Myalgia Verified 12/05/23 09:48 [id number] Reductase AdvReac Severe muscle pain Verified 12/05/23 09:48 Inhibitor Family History Brother Diabetes Mother Diabetes Heart disease Hypertension Grandmother Diabetes Sister Diabetes Heart disease Hypertension Thyroid disorder Father Kidney disease Grandfather Kidney disease Surgical History H/O: hysterectomy History of bilateral knee arthroplasty History of cholecystectomy History of esophagogastroduodenoscopy (EGD) Hx of colonoscopy Social History Smoking Status: Never smoker second hand exposure: No alcohol intake: never substance use type: does not use yessenia/quaker: Gnosticist seatbelt use: always ROS ROS ED Constitutional Constitutional ED: Denies chills or fever(s) Eyes Eyes: Denies blurry vision or change in vision ENT ENT ED: Denies rhinorrhea or sore throat Cardiovascular Cardiovascular: Reports chest pain; Denies palpitations Respiratory/Chest Respiratory/Chest: Reports dyspnea; Denies cough Gastrointestinal Gastrointestinal: Denies nausea or vomiting Genitourinary Genitourinary ED: Denies dysuria or hematuria Musculoskeletal Musculoskeletal: Reports back pain; Denies neck pain Integumentary Denies abscess or rash Neurologic Neurologic: Denies headache(s) or weakness Allergic/Immunologic Allergic/Immunologic ED: Denies mouth swelling or urticaria EXAM Physical Exam Const Vital Signs: 12/05/23 09:48 12/05/23 09:48 12/05/23 09:48 Temperature 97.6 F L Temperature Source Temporal Pulse Rate 89 68 Respiratory Rate 16 14 Respiratory Effort Short of Breath Respiratory Depth Normal Respiratory Pattern Normal Blood Pressure 133/84 H Blood Pressure Mean 100 Pulse Ox 96 96 Oxygen Delivery Method Room Air Room Air Room Air 12/05/23 11:48 Temperature Temperature Source Pulse Rate 79 Respiratory Rate 18 Respiratory Effort Respiratory Depth Respiratory Pattern Blood Pressure 119/68 Blood Pressure Mean 85 Pulse Ox 97 Oxygen Delivery Method Room Air Positive well nourished, well developed and obese General Appearance ED: well developed and NAD Nutritional Appearance: obese HEENT Reports moist mucous membranes Neck supple and no JVD Chest Wall Chest Narrative: There is tenderness over the parasternal areas bilaterally. There is no edema or ecchymosis. There is no bony crepitance or step-off noted. Resp normal respiratory effort and clear to auscultation bilaterally Cardio regular rate and regular rhythm GI non-tender and non-distended Palpation: soft Neuro oriented x3, CN's II-XII intact bilaterally and no sensory deficits noted Sensorium / Orientation: alert Motor Exam: strength 5/5 throughout Psych mental status grossly normal MDM MDM MDM Narrative Medical decision making narrative: Differential diagnosis includes musculoskeletal pain, anxiety, cardiac dysrhythmia, cardiac ischemia, pneumonia, pneumothorax, and electrolyte abnormality. Patient is currently on apixaban. I do not feel this is from a pulmonary embolism. EKG will be obtained to assess for cardiac dysrhythmia and cardiac ischemia. Chest x-ray will be obtained to assess for pneumonia and pneumothorax. CBC will be obtained to assess for leukocytosis and anemia. Basic metabolic profile will be obtained to assess for electrolyte abnormality and renal function. PT was INR and PTT will be obtained to assess for coagulopathy. High-sensitivity troponin will be obtained to assess for cardiac ischemia. Lab Data Attestation: I reviewed the patient's lab results. Lab results narrative: CBC was reviewed. There is a mild anemia with a hemoglobin of 11.7 and hematocrit 36.5. This was improved compared to previous results. PT with INR and PTT were reviewed. Pro time was 15.7 and INR is 1.3. PTT was normal at 29.4. Basic metabolic profile was reviewed. BUN was slightly elevated at 32 and creatinine was 1.19. These are improved compared to previous results. High-sensitivity troponin was reviewed and was normal at 12. Labs: Laboratory Results - last 24 hr 12/05/23 10:40 WBC 7.3 RBC 4.05 L Hgb 11.7 L Hct 36.5 L MCV 90.1 MCH 28.9 MCHC 32.1 RDW Std Deviation 49.1 H RDW Coeff of Paulo 14.9 H Plt Count 182 MPV 11.3 Immature Gran % (Auto) 0.500 Neut % (Auto) 59.5 Lymph % (Auto) 22.4 [place] % (Auto) 9.4 Eos % (Auto) 7.8 H Baso % (Auto) 0.4 Absolute Neuts (auto) 4.3 Absolute Lymphs (auto) 1.64 Nucleated RBC % 0 PT 15.7 H INR 1.3 APTT 29.4 Sodium 139 Potassium 4.3 Chloride 110 H Carbon Dioxide 24.0 Anion Gap 5 BUN 32 H Creatinine 1.19 H Estim Creat Clear Calc 49.17 Est GFR (MDRD) Af Amer 58 L Est GFR (MDRD) Non-Af 48 L BUN/Creatinine Ratio 26.9 H Glucose 108 H Calcium 9.5 Troponin I High Sens 12 Radiography Chest X-Ray - ED: 2 View, Read by ED Physician, Read by Radiologist and No Acute Disease Diagnostic Testing: Clinical Impression(s) from Imaging Studies Chest X-Ray 12/05/23 10:50 IMPRESSION: Mild degree of residual increased markings at the left lung base. Electronically Signed: Bernardo Queen MD at 11:38 EDT , PA and lateral chest x-ray was obtained. There are 2 views. On my independent interpretation, lung gardner show atelectasis at the left lung base. There is normal cardiac silhouette. Bony thorax is normal. There is no acute process noted. Radiologist also interpreted the x-ray and agrees. EKG Initial EKG: Attestation: I personally reviewed and interpreted this EKG as follows: Interpretation: Sinus Rhythm (With occasional PACs with a rate of 86) and No Acute Injury Pattern Comments: EKG was obtained. On my independent interpretation, it showed a normal sinus rhythm with occasional PACs with a rate of 86. NE interval, QRS interval, and QTc intervals were all normal. There is left axis deviation at -27. There are no acute ST or T wave changes. Prior EKG tracings: available for review Prior: Unchanged (10/02/2023) Differential Diagnosis Chest pain/SOB: pulmonary embolism Reason(s) PE less likely: Positive for not tachycardic, not hypoxic and patient taking oral anticoagulants Treatment and Re-Evaluation :: Patient is resting comfortably on reevaluation. Patient was advised of her findings. Patient has a HEART score of 2. Patient was advised that this is low risk for acute cardiac event. Patient was instructed to follow-up with her primary care physician in 5 to 7 days. Patient understood and was agreeable with the plan. All questions were answered. Discharge Plan Triage Chief Complaint: Shortness of Breath ED Provider: Salvador Brennan Dx/Rx/DC Orders Clinical Impression: Dyspnea, Chest pain Instructions: ED Chest Pain, Uncertain Cause, ED Dyspnea Prescriptions: No Action (DME) lancets [Accu-Chek Softclix Lancets] Misc See Rx Instructions .ROUTE .MEDSUPPLY Qty: 100 Rx Instructions: As directed, Test 4 times daily before meals and at bedtime (DME) Accu-Chek Christi Plus test strp Strip See Rx Instructions .ROUTE .MEDSUPPLY Qty: 10 Rx Instructions: As directed; Test 4 times daily before meals and at bedtime (DME) CPAP See Rx Instructions .Route .MEDSUPPLY Qty: 1 Rx Instructions: 14 cm H2O (DME) blood-glucose meter Misc See Rx Instructions .ROUTE .MEDSUPPLY Qty: 1 Rx Instructions: As directed (DME) blood pressure monitor [Blood Pressure Kit] Kit See Rx Instructions .ROUTE .MEDSUPPLY Qty: 1 Rx Instructions: As directed latanoprost 0.005 % drops 1 drp ophthalmic (eye) QHS vitamin E 400 unit capsule 800 unit PO DAILY Qty: 60 5RF (DME) pen needle, diabetic [Novofine 32] 32 gauge x 1/4 needle See Rx Instructions .ROUTE .MEDSUPPLY Qty: 200 6RF Rx Instructions: As directed; 4x/day (DME) Bilateral wrist splints See Rx Instructions .Route .MEDSUPPLY Qty: 2 0RF Rx Instructions: As directed insulin lispro [Humalog KwikPen Insulin] 100 unit/mL insulin pen 12 unit subcut TID Patient Comments: PT STATES SHE ONLY TAKES 12 UNITS IF HER BS IS 150+. DOES NOT DO SLIDING SCALE Rx Instructions: 12u with meals, 6u with snacks. +SSI 180-210+2; 211-240+3; 241-300+5; >300 +7 MDD 50 pantoprazole 40 mg tablet,delayed release (DR/EC) 40 mg PO BID Qty: 180 1RF loratadine 10 mg tablet 10 mg PO DAILY Qty: 90 1RF Nurtec ODT 75 mg tablet,disintegrating 75 mg PO DAILY PRN (Reason: migraine headache) Qty: 8 5RF pregabalin 150 mg capsule 150 mg PO BID Qty: 180 1RF atorvastatin 40 mg tablet 40 mg PO QHS Linzess 145 mcg capsule 145 mcg PO DAILY Qty: 90 0RF Rx Instructions: TAKE 1 CAPSULE BY MOUTH IN THE MORNING omega-3 fatty acids 1,000 mg capsule 1,000 mg PO DAILY Qty: 90 0RF Eliquis 5 mg tablet 5 mg PO BID Qty: 180 1RF cholecalciferol (vitamin D3) 1,250 mcg (50,000 unit) capsule 1,250 mcg PO LUCIO Qty: 14 1RF fluticasone propionate 50 mcg/actuation spray,suspension 2 spray INTRANASAL DAILY PRN (Reason: Nasal Congestion) Rx Instructions: administer into each nostril albuterol sulfate [Ventolin HFA] 90 mcg/actuation HFA aerosol inhaler 1 - 2 puff inhalation Q4H PRN (Reason: Wheezing) insulin degludec [Tresiba FlexTouch U-100] 100 unit/mL (3 mL) insulin pen 35 unit SC QHS allopurinol 100 mg tablet 100 mg PO DAILY Qty: 60 0RF simethicone 80 mg tablet,chewable 80 mg PO 4X/DAY PRN (Reason: Flatulence) Qty: 30 1RF cholestyramine (with sugar) 4 gram powder 4 g PO DAILY Qty: 348.6 0RF Rx Instructions: administer w/meal; avoid other meds within 1hr before or 4-6hr after dose ezetimibe [Zetia] 10 mg tablet 10 mg PO DAILY Qty: 60 2RF Jardiance 10 mg tablet 10 mg PO DAILY Qty: 30 6RF Prolia 60 mg/mL syringe 60 mg subcut [id number] Qty: 1 0RF duloxetine 60 mg capsule,delayed release(DR/EC) See Rx Instructions .ROUTE .COMPLEX Qty: 180 1RF Dose Instruction: TAKE 2 CAPSULES BY MOUTH DAILY Rx Instructions: TAKE 2 CAPSULES BY MOUTH DAILY metoprolol tartrate 25 mg tablet 12.5 mg PO BID Qty: 60 1RF ursodiol 250 mg tablet 250 mg PO BID Primary Care Provider: Vamsi Epperson Referrals: Vamsi Epperson MD [Primary Care Provider] - 3-5 Days Disposition Disposition: Home, Self Care
--- NOTE | 2023-12-05 10:32 | EKG12_ITS ---
Test Reason : CP Blood Pressure : / mmHG Vent. Rate : 086 BPM Atrial Rate : 086 BPM P-R Int : 144 ms QRS Dur : 082 ms QT Int : 346 ms P-R-T Axes : 036 -27 013 degrees QTc Int : 414 ms Sinus rhythm with Premature supraventricular complexes Minimal voltage criteria for LVH, may be normal variant ( R in aVL ) Borderline ECG Confirmed by Cem Rios ([id number]), society editor ALEXANDER HUNTER ([id number]) on 12/06/2023 11:18:08 AM Referred By: PAULETTE/MARY Confirmed By:Cem Rios
--- NOTE | 2023-12-05 10:50 | RAD_ITS ---
STUDY: X-RAY CHEST REASON FOR EXAM: Female, 68 years old. Chest pain TECHNIQUE: History of pulmonary emboli. COMPARISON: Comparison is made with prior study dated October 02, 2023. FINDINGS: EKG electrodes are seen. Minimal residual increased markings are seen at the left lung base suggestive of basilar atelectasis. Calcified granulomas. There is no demonstrated pleural abnormality. Normal size heart. Normal mediastinum and khai. Normal visualized pulmonary arteries. There is atherosclerotic calcification of the aortic arch with tortuosity. There are diffuse degenerative changes of the visualized thoracic spine. Normal visualized ribs, clavicles, and shoulders. There is no demonstrated abnormality of the visualized soft tissue structures of the upper abdomen. RAD/Chest PA and Lateral IMPRESSION: Mild degree of residual increased markings at the left lung base. Electronically Signed: Bernardo Queen MD at 11:38 EDT ,
[2023-12-05 10:51] LABS: Absolute Lymphocyte Count 1.64 X10^3/uL (0.83-4.51); Absolute Neutrophil Count 4.3 X10^3/uL (2.0-7.7); Basophil# 0.03 X10^3/uL; Basophil% 0.4 % (0-1); Eosinophil# 0.57 X10^3/uL; Eosinophils% 7.8 % (0-5); Hematocrit 36.5 % (37-47); Hemoglobin 11.7 g/dL (12.0-15.0); Lymphocyte # 1.64 X10^3/ul (0.83-4.51); Lymphocyte % 22.4 % (19-41); Mean Corp Hgb Conc 32.1 g/dL (32-36); Mean Corpuscular Hgb 28.9 pg (27.0-32.0); Mean Corpuscular Volume 90.1 fL (81-99); Mean Platelet Vol. 11.3 fl (6.2-12.0); Monocyte# 0.69 X10^3/uL; Monocyte% 9.4 % (0-10); NRBC Flagged by Analyzer 0 % (0-5); Neutrophil # 4.34 X10^3/uL (2.7-7.7); Neutrophil % 59.5 % (47-70); Platelet Count 182 K/mm3 (150-450); RBC Distribution Width CV 14.9 % (11.6-14.6); RBC Distribution Width SD 49.1 fl (35.1-43.9); Red Blood Count 4.05 M/mm3 (4.2-5.4); White Blood Count 7.3 K/mm3 (4.4-11.0)
[2023-12-05 10:58] LABS: International Normalized Ratio 1.3; Prothrombin Time (Protime)PT. 15.7 SECONDS (11.7-14.9)
[2023-12-05 10:59] LABS: Partial Thromboplast Time 29.4 Seconds (24.1-36.2)
[2023-12-05 11:48] VITALS: BP 119/68; PULSE 79; RESP 18; O2SAT 97
[2023-12-05 12:03] LABS: Anion Gap 5 (5-15); BUN 32 mg/dL (7-18); BUN/Creat Ratio 26.9 RATIO (10-20); Calcium,Total 9.5 mg/dL (8.5-10.1); Chloride 110 mmol/L (98-107); Creatinine, Serum 1.19 mg/dL (0.55-1.02); EST Glomerular Filtration Rate 48 mL/min (>60); Est Glom Filt Rate - Afr Amer 58 mL/min (>60); Estimated Creatinine Clearance 49.17 ml/min; Glucose 108 mg/dL (74-106); Potassium 4.3 mmol/L (3.5-5.1); Sodium Level 139 mmol/L (136-145); Troponin-I HS 12 pg/mL (3.0-54.0)
[2023-12-05 13:00] VITALS: BP 118/76; PULSE 89; RESP 16; O2SAT 99
[2023-12-05 14:03] VITALS: BP 124/64; PULSE 64; RESP 16; TEMP 36.4; O2SAT 99
== END 2023-12-05 14:05 | disposition home or self-care (01) ==
PROVIDERS: Emergency Provider Emergency Medicine; PCP Internal Medicine; Visit Provider Emergency Medicine
DX: R07.89 Other chest pain (principal); E11.22 Type 2 diabetes mellitus with diabetic chronic kidney disease; N18.30 Chronic kidney disease, stage 3 unspecified; R06.02 Shortness of breath; Z79.01 Long term (current) use of anticoagulants; E78.00 Pure hypercholesterolemia, unspecified; I12.9 Hypertensive chronic kidney disease with stage 1 through stage 4 chronic kidney disease, or unspecified chronic kidney disease; Z79.899 Other long term (current) drug therapy; E66.9 Obesity, unspecified
CPT/HCPCS: 71046; 80048; 84484; 85025; 85610; 85730; 93005; 99284

== ENCOUNTER → 2023-12-23 | Outpatient (CLI) | payer MEDICARE, SELFPAY ==
[2023-12-23 12:26] LABS: Absolute Lymphocyte Count 2.34 X10^3/uL (0.83-4.51); Absolute Neutrophil Count 6.3 X10^3/uL (2.0-7.7); Basophil# 0.03 X10^3/uL; Basophil% 0.3 % (0-1); Eosinophil# 0.52 X10^3/uL; Eosinophils% 5.3 % (0-5); Hematocrit 42.2 % (37-47); Hemoglobin 13.1 g/dL (12.0-15.0); Lymphocyte # 2.34 X10^3/ul (0.83-4.51); Lymphocyte % 23.6 % (19-41); Mean Corpuscular Hgb 28.5 pg (27.0-32.0); Mean Corpuscular Volume 91.7 fL (81-99); Mean Platelet Vol. 12.4 fl (6.2-12.0); Monocyte% 7.1 % (0-10); NRBC Flagged by Analyzer 0 % (0-5); Neutrophil # 6.28 X10^3/uL (2.7-7.7); Neutrophil % 63.4 % (47-70); Platelet Count 307 K/mm3 (150-450); RBC Distribution Width CV 14.7 % (11.6-14.6); RBC Distribution Width SD 49.1 fl (35.1-43.9); White Blood Count 9.9 K/mm3 (4.4-11.0)
[2023-12-23 12:27] LABS: Erythrocyte Sedimentation Rate 23 mm/hr (0-30)
[2023-12-23 13:36] LABS: Uric Acid 6.7 mg/dL (2.6-6.0)
== END | disposition home or self-care (01) ==
LOC: BIMLAB 09:57
PROVIDERS: PCP Internal Medicine; Referring Provider Nurse Practitioner; Visit Provider Nurse Practitioner
DX: M79.89 Other specified soft tissue disorders (principal)
CPT/HCPCS: 84550; 85025; 85652; 86140; 87040

== ENCOUNTER → 2023-12-29 | Outpatient (CLI) | payer MEDICARE, SELFPAY ==
--- NOTE | 2023-12-29 08:16 | MRI_ITS ---
STUDY: MRI LEFT MIDFOOT REASON FOR EXAM: Female, 68 years old. Left foot pain, erythema, swelling - evaluate for diabetic neuroarthropathy. TECHNIQUE: Standardized fat and water weighted pulse sequences were obtained in all 3 orthogonal planes. COMPARISON: Left foot radiographs dated 03/19/2021. Left ankle radiographs dated 11/01/2023. FINDINGS: Normal talonavicular articulation. Normal calcaneocuboid articulation. Normal navicular-cuneiform articulations. Normal intercuneiform articulations. Normal first tarsometatarsal articulation. Normal Lisfranc ligament. Intact second and third tarsometatarsal articulations. Intact cuboid fourth and cuboid fifth tarsometatarsal articulation. Intact first through fifth metatarsi. There is no demonstrated fracture of the metatarsal bones. There is patchy marrow edema in the first metatarsal head, second metatarsal head, bases of the second through fourth metatarsals, and medial cuneiform. Normal tibialis anterior tendon. Normal extensor hallucis longus tendon. Normal extensor digitorum longus tendons. Normal peroneus longus tendon and distal insertion. Normal peroneus brevis tendon and distal insertion. Normal intrinsic muscles of the mid and forefoot region. Normal extensor digitorum brevis muscle. There is moderate to severe subcutaneous soft tissue edema along the dorsum of the foot. There is no demonstrated soft tissue mass lesion. MRI/Lower Ext/No Jt/w/o IMPRESSION: Patchy marrow edema in the first metatarsal head, second metatarsal head, bases of the second through fourth metatarsals, and medial cuneiform. Moderate to severe subcutaneous soft tissue edema along the dorsum of the foot. Electronically Signed: Srinath Lovell MD at 10:40 EDT ,
== END | disposition home or self-care (01) ==
LOC: MRI 07:40
PROVIDERS: PCP Internal Medicine; Referring Provider Nurse Practitioner; Visit Provider Nurse Practitioner
DX: M79.89 Other specified soft tissue disorders (principal); M79.605 Pain in left leg
CPT/HCPCS: 73718

== ENCOUNTER → 2023-12-30 | Outpatient (CLI) | payer MEDICARE, SELFPAY ==
--- NOTE | 2023-12-30 10:21 | VDLE_ITS ---
Reason For Study: Bilateral leg swelling RIGHT LEFT GSV is normal. GSV is normal. CFV is compressible, spontaneous, phasic, CFV is compressible, spontaneous, phasic, competent and demonstrates normal competent, and demonstrates normal augmentation. augmentation. FV is compressible, spontaneous, phasic, FV is compressible, spontaneous, phasic, competent and demonstrates normal competent and demonstrates normal augmentation. augmentation. POP V is compressible, spontaneous, phasic, POP V is compressible, spontaneous, phasic, competent and demonstrates normal competent and demonstrates normal augmentation. augmentation. T/P Trunk and GastrocV are partially T/P Trunk is compressible. compressible with bright intraluminal echoes PTV is compressible. consistent with Chronic DVT. Venous flow PeroV is partially compressible with bright noted. intraluminal echoes consistent with Chronic PTV is compressible. DVT. Venous flow noted. RT PerV is compressible. Procedure This is a venous duplex using B-mode, color flow and spectral Doppler. Exam performed in department. A preliminary report was called and/or faxed to Dr. Keene. VL/Venous Duplex US - Willem Extrem Interpretation Summary Chronic deep venous thrombosis right tibioperoneal trunk and gastrocnemius vein s Chronic deep venous thrombosis left peroneal vein Patent and compressible bilateral great saphenous veins Ordering Physician: Mart Keene Referring Physician: Vamsi Epperson Performed By: Carri Whyte RVT
== END | disposition home or self-care (01) ==
LOC: CVS 10:20
PROVIDERS: PCP Internal Medicine; Referring Provider Podiatrist; Visit Provider Podiatrist
DX: M79.604 Pain in right leg (principal); M79.605 Pain in left leg; R22.41 Localized swelling, mass and lump, right lower limb; R22.42 Localized swelling, mass and lump, left lower limb
CPT/HCPCS: 93970

== ENCOUNTER → 2024-01-17 | Outpatient (CLI) | payer MEDICARE, SELFPAY ==
[2024-01-17 12:20] LABS: Absolute Lymphocyte Count 2.31 X10^3/uL (0.83-4.51); Absolute Neutrophil Count 6.2 X10^3/uL (2.0-7.7); Basophil# 0.03 X10^3/uL; Basophil% 0.3 % (0-1); Eosinophil# 0.59 X10^3/uL; Hematocrit 41.4 % (37-47); Hemoglobin 12.9 g/dL (12.0-15.0); Lymphocyte # 2.31 X10^3/ul (0.83-4.51); Lymphocyte % 23.5 % (19-41); Mean Corp Hgb Conc 31.2 g/dL (32-36); Mean Corpuscular Hgb 27.7 pg (27.0-32.0); Mean Corpuscular Volume 88.8 fL (81-99); Mean Platelet Vol. 11.4 fl (6.2-12.0); Monocyte% 7.1 % (0-10); NRBC Flagged by Analyzer 0 % (0-5); Neutrophil # 6.18 X10^3/uL (2.7-7.7); Neutrophil % 62.7 % (47-70); Platelet Count 232 K/mm3 (150-450); RBC Distribution Width CV 15.2 % (11.6-14.6); RBC Distribution Width SD 49.7 fl (35.1-43.9); Red Blood Count 4.66 M/mm3 (4.2-5.4); White Blood Count 9.9 K/mm3 (4.4-11.0)
[2024-01-17 12:31] LABS: ALB/GLOB Ratio 0.8 RATIO (0.9-2.4); AST(SGOT) 35 U/L (15-37); Alanine Aminotransfer ALT/SGPT 24 U/L (13-56); Albumin, Serum 3.2 g/dL (3.2-5.0); Alkaline Phosphatase 169 U/L (45-117); Anion Gap 5 (5-15); BUN 30 mg/dL (7-18); Calcium,Total 10.9 mg/dL (8.5-10.1); Chloride 107 mmol/L (98-107); EST Glomerular Filtration Rate 47 mL/min (>60); Est Glom Filt Rate - Afr Amer 57 mL/min (>60); Glucose 123 mg/dL (74-106); Potassium 4.9 mmol/L (3.5-5.1); Protein, Total 7.2 g/dL (6.4-8.2); Sodium Level 138 mmol/L (136-145)
== END | disposition home or self-care (01) ==
LOC: BIMLAB 10:08
PROVIDERS: PCP Internal Medicine; Visit Provider Nurse Practitioner
DX: R10.9 Unspecified abdominal pain (principal); N39.0 Urinary tract infection, site not specified; R06.00 Dyspnea, unspecified
CPT/HCPCS: 36415; 80053; 85025; 87086; 87088; 87186

== ENCOUNTER 2024-01-19 18:44 | Emergency (ER) | payer MEDICARE, SELFPAY ==
[2024-01-19 18:51] VITALS: BP 152/98; PULSE 89; RESP 18; TEMP 35.8; O2SAT 100
[2024-01-19 18:53] VITALS: BMI 41.7
--- NOTE | 2024-01-19 19:29 | EDS_ITS ---
<Statement entered by Allegra Juan MD - 01/19/24 23:21> I have personally performed a face to face assessment of the patient and have reviewed the IRAM Note. Patient presents secondary to foot pain and slight erythema with concern for cellulitis. She is also currently on an antibiotic for UTI but is still having some mild dysuria although symptoms are improving. Patient sitting upright in bed in no acute distress. She is talking on her phone. Head neck examination unremarkable. Heart is regular rate and rhythm. Lung sounds are clear. Abdomen soft nontender. Lower extremity examination feels mild erythema and slight warmth over the medial and lateral malleoli of the left ankle. No tenderness or redness on her foot or streaking up her leg. No open wounds. CBC and chemistry studies are unremarkable. Urinalysis reveals 5-10 white cells with 0 bacteria. Urine culture from her recent infection was reviewed. We will switch her to Keflex which will cover both her urine as well as cellulitis. Patient is happy with the plan. Return instructions given. HPI History of Present Illness Chief Complaint: Lower Extremity Injury Narrative Narrative: Patient is a 69-year-old female with history of pulmonary emboli on Eliquis, CAD, diabetes, hypertension who presents to the emergency department for worsening left foot pain, dysuria. Patient is currently on ciprofloxacin for her urine that she is been on for 2 to 3 days, she states that is improving however she still having dysuria, she also states the left foot is getting worse over the last 2 to 3 days. She states that she does have history of cellulitis that she is concerned it is acting up. 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 She denies any fever chills nausea or vomiting. [facility] Medical History (Updated 01/19/24 @ 20:59 by KRYSTIN Kim) Abnormal thyroid function test Anemia Anxiety Anxiety and depression Arthritis Back pain Bilateral lower extremity edema Blackout Chronic neck and back pain CKD (chronic kidney disease), stage III COVID-19 CPAP (continuous positive airway pressure) dependence Depression Diabetes Diabetes Dietary restriction Difficulty balancing when standing Difficulty swallowing Dizziness DVT (deep venous thrombosis) Elevated troponin Encounter for vitamin deficiency screening Essential hypertension Fatigue Fatty liver Fibromyalgia Fibrosis of liver Flu vaccine need GERD (gastroesophageal reflux disease) Glaucoma Gout Grief reaction Hematuria High cholesterol History of echocardiogram History of pain when walking History of renal disease History of stress test History of thyroid nodule Hx of phlebitis Hypercalcemia Hyperlipidemia Hypertension Insomnia Insulin dependent diabetes mellitus Leg cramps Limb weakness Liver disease Loss of hearing Lyme disease Macular degeneration Migraine headache Morbid obesity Myositis Non-smoker Obesity On home oxygen therapy [place] on CPAP Osteoporosis Polymyositis Respiratory failure Restless legs Sensorineural hearing loss of both ears Shoulder pain Sinusitis Sleep apnea Stroke/cerebrovascular accident Type 2 diabetes mellitus UTI (urinary tract infection) Vitamin D deficiency Wears glasses Home Medications CPAP #1 ea 09/24/20 [History Last Taken Unknown] blood pressure monitor (Blood Pressure Kit) #1 ea 09/24/20 [History Last Taken Unknown] blood sugar diagnostic (Accu-Chek Christi Plus test strips) #10 ea 09/24/20 [History Last Taken Unknown] blood-glucose meter #1 ea 09/24/20 [History Last Taken Unknown] lancets (Accu-Chek Softclix Lancets) #100 ea 09/24/20 [History Last Taken Unknown] latanoprost 0.005 % eye drops 1 drp ophthalmic (eye) QHS MACULAR DEGENRATION 02/24/21 [History Last Taken Unknown] simethicone 80 mg chewable tablet 80 mg PO 4X/DAY PRN Flatulence #30 tabs 12/07/21 [Rx Last Taken Unknown] vitamin E 268 mg (400 unit) capsule 800 unit PO DAILY vitamin #60 caps 02/08/22 [Rx Last Taken 11/01/23] Bilateral wrist splints #2 ea 06/07/22 [Rx Last Taken Unknown] pen needle, diabetic 32 gauge x 1/4 (Novofine 32) #200 ea 07/27/22 [Rx Last Taken Unknown] cholestyramine (with sugar) 4 gram oral powder 4 g PO DAILY digestion #348.6 grams 08/12/22 [Rx Last Taken Unknown] fluticasone propionate 50 mcg/actuation nasal spray,suspension 2 spray intranasal DAILY PRN Nasal Congestion 09/06/22 [History Last Taken Unknown] insulin lispro 100 unit/mL subcutaneous pen (Humalog KwikPen (U-100) Insulin) 12 unit subcut TID 02/28/23 [History Last Taken 10/31/23] Jardiance 10 mg tablet (empagliflozin) 10 mg PO DAILY #30 tabs 03/14/23 [Rx Last Taken 11/01/23] denosumab 60 mg/mL subcutaneous syringe (Prolia) 60 mg subcut [id number] bone health #1 mL 03/17/23 [Rx Last Taken Unknown] loratadine 10 mg tablet 10 mg PO DAILY allergies #90 tabs 08/23/23 [Rx Last Taken 11/01/23] pregabalin 150 mg capsule 150 mg PO BID pain #180 caps 08/23/23 [Rx Last Taken 11/01/23] rimegepant 75 mg disintegrating tablet (Nurtec ODT) 75 mg PO DAILY PRN migraine headache #8 tabs 08/23/23 [Rx Last Taken Unknown] albuterol sulfate 90 mcg/actuation aerosol inhaler (Ventolin HFA) 1 - 2 puff inhalation Q4H PRN Wheezing 11/01/23 [History Last Taken 09/19/23] insulin degludec 100 unit/mL (3 mL) subcutaneous pen (Tresiba FlexTouch U-100 insulin) 35 unit subcut QHS 11/01/23 [History Last Taken 10/31/23] apixaban 5 mg tablet (Eliquis) 5 mg PO BID BLOOD THINNER #180 tabs 11/16/23 [Rx Last Taken Unknown] cholecalciferol (vitamin D3) 1,250 mcg (50,000 unit) capsule 1,250 mcg PO LUCIO vitamin #14 caps 11/16/23 [Rx Last Taken Unknown] linaclotide 145 mcg capsule (Linzess) 145 mcg PO DAILY BOWELS #90 caps 11/16/23 [Rx Last Taken Unknown] omega-3 fatty acids 1,000 mg capsule 1,000 mg PO DAILY #90 caps 11/16/23 [Rx Last Taken Unknown] metoprolol tartrate 25 mg tablet 12.5 mg (1/2 x 25 mg) PO BID #60 tabs 11/21/23 [Rx Last Taken Unknown] duloxetine 60 mg capsule,delayed release See Rx Instructions .Route .COMPLEX #180 caps 12/23/23 [Rx Last Taken Unknown] ezetimibe 10 mg tablet (Zetia) 10 mg PO DAILY #60 tabs 12/23/23 [Rx Last Taken Unknown] lorazepam 0.5 mg tablet 0.5 mg PO Q4 PRN anxiety 12/23/23 [History Last Taken Unknown] oxycodone 5 mg tablet 2.5 mg PO Q4 PRN 12/23/23 [History Last Taken Unknown] rosuvastatin 5 mg tablet 5 mg PO DAILY #60 tabs 12/23/23 [Rx Last Taken Unknown] ursodiol 250 mg tablet 250 mg PO BID gallstones #90 tabs 12/23/23 [Rx Last Taken Unknown] allopurinol 200 mg tablet 200 mg PO DAILY #30 tabs 12/27/23 [Rx Last Taken Unknown] pantoprazole 40 mg tablet,delayed release 40 mg PO BID reflux #180 tabs 01/16/24 [Rx Last Taken Unknown] ciprofloxacin HCl 250 mg tablet 250 mg PO Q12H 7 days #14 tabs 01/17/24 [Rx Last Taken Unknown] cephalexin 500 mg capsule 500 mg PO Q6 #28 CAPSULES 01/19/24 [Rx Last Taken Unknown] Allergy/AdvReac Type Severity Reaction Status Date / Time saliva substitute Allergy Severe Angioedema Verified 01/19/24 18:51 combination no.9 [From [employer] gemfibrozil AdvReac Severe Myalgia Verified 01/19/24 18:51 [id number] Reductase AdvReac Severe muscle pain Verified 01/19/24 18:51 Inhibitor Family History Brother Diabetes Mother Diabetes Heart disease Hypertension Grandmother Diabetes Sister Diabetes Heart disease Hypertension Thyroid disorder Father Kidney disease Grandfather Kidney disease Surgical History H/O: hysterectomy History of bilateral knee arthroplasty History of cholecystectomy History of esophagogastroduodenoscopy (EGD) Hx of colonoscopy Social History Smoking Status: Never smoker second hand exposure: No alcohol intake: never substance use type: does not use yessenia/yazdanism: [employer] seatbelt use: always ROS ROS ED ROS Narrative Constitutional: Negative for fever, chills, weight loss, weakness Eyes: Negative for vision loss, vision change, double vision ENT: Negative for any sore throat, ear pain, congestion Cardiovascular: Negative for any chest pain, tightness, palpitations Respiratory: Negative for any cough, sputum production, hemoptysis, dyspnea, dyspnea on exertion, orthopnea Gastrointestinal: Negative for any abdominal pain, nausea, vomiting, diarrhea, constipation, blood in stool, blood in vomit : Negative for any urinary frequency, retention, blood in urine. Positive dysuria Muscle skeletal: Negative for any neck pain, back pain. Positive left foot pain Neurological: Negative for any headache, syncope, dizziness Skin: Negative for any rashes, itching, abrasions, lacerations Psychiatric: Negative for any depression, anxiety, stress, suicidal ideation, homicidal ideation Hematologic: Negative for any excessive bruising, easy bleeding EXAM Physical Exam Narrative Exam Narrative: Vital signs reviewed. HEET: Head normocephalic atraumatic, TMs clear bilaterally. Posterior pharynx is clear, moist mucous membranes. Nares clear bilaterally. Neck: Supple with no lymphadenopathy or tenderness. No signs of meningismus. Cardiac: Regular rate and rhythm no murmurs gallops or rubs, equal peripheral pulses bilaterally. Respiratory: Lungs clear to auscultation bilaterally. No chest tenderness. Abdomen: Soft, nontender, nondistended. No abdominal bruit or pulsatile masses. No hepatosplenomegaly Extremities: Patient does have some edema to the left foot, some redness to the medial aspect of the left foot as well as to the lateral malleolus. Pain on palpation. +2 pedal pulse. No signs of gross trauma or deformity. Active full range of motion of all extremities. Neuro: Cranial nerves II through XII intact, no focal neurological deficits. Skin: Clean dry and intact with no rash, purpura, petechiae, vesicles or pustules. Backs/flank: No CVA tenderness, no midline spinal tenderness, no deformity. Psych: Normal mood and affect. No SI, HI or acute psychosis. Const Vital Signs: 01/19/24 18:51 01/19/24 20:00 Temperature 96.5 F L 97 F L Temperature Source Temporal Temporal Pulse Rate 89 88 Respiratory Rate 18 16 Blood Pressure 152/98 H 150/90 H Blood Pressure Mean 116 110 Pulse Ox 100 97 Oxygen Delivery Method Room Air Room Air Positive well nourished and well developed General Appearance ED: well developed MDM MDM Lab Data Labs: Laboratory Results - last 24 hr 01/19/24 01/19/24 19:35 20:01 WBC 9.4 RBC 4.44 Hgb 12.2 Hct 39.0 MCV 87.8 MCH 27.5 MCHC 31.3 L RDW Std Deviation 47.7 H RDW Coeff of Paulo 14.8 H Plt Count 250 MPV 10.6 Immature Gran % (Auto) 0.300 Neut % (Auto) 63.7 Lymph % (Auto) 22.2 [place] % (Auto) 8.6 Eos % (Auto) 4.9 Baso % (Auto) 0.3 Absolute Neuts (auto) 6.0 Absolute Lymphs (auto) 2.09 Nucleated RBC % 0 Sodium 139 Potassium 4.4 Chloride 106 Carbon Dioxide 29.0 Anion Gap 4 L BUN 23 H Creatinine 1.04 H Est GFR (MDRD) Af Amer 68 Est GFR (MDRD) Non-Af 56 L BUN/Creatinine Ratio 22.1 H Glucose 83 Calcium 10.0 Urine Color Yellow Urine Clarity Clear Urine pH 5.0 Ur Specific [place] 1.025 Urine Protein 100 H Urine Glucose (UA) 250 H Urine Ketones Negative Urine Occult Blood 50 H Urine Nitrite Negative Urine Bilirubin Negative Urine Urobilinogen Normal Ur Leukocyte Esterase 25 H Urine RBC 0 SEEN Urine WBC 5-10 SEEN Ur Squamous Epith Cells 0-5 SEEN Urine Bacteria 0 SEEN Urine Mucus 0 SEEN Treatment and Re-Evaluation :: Differential diagnosis includes however is not limited to: UTI, failed outpatient therapy, DVT, foot injury, cellulitis Patient appears to be in no obvious respiratory distress vital signs are stable. Presenting to the emergency department with complaints of feet pain resolved dysuria. Patient recent basic laboratory values look for CBC BMP, patient will also receive urinalysis to ensure that there is no significant worsening infection. Patient's laboratory values showed normal CBC, no leukocytosis. Chemistries were unremarkable. Patient's urinalysis shows no bacteria, I do believe the patient is on the correct antibiotic with Cipro, I did look at the culture, did reveal E. coli and Cipro was sensitive. At this time, patient be diagnosed with cellulitis to the left foot. She will place on Keflex 4 times a day for 1 week. She can stop taking the Cipro as Keflex is also sensitive to E. coli. She is agreeable with the plan, she was given strict return precaution, stable for discharge. Discharge Plan Triage Chief Complaint: Lower Extremity Injury Other Complaint: Complaint ED Midlevel Provider: Rizwan Paige ED Provider: Allegra Juan Dx/Rx/DC Orders Clinical Impression: Dysuria, Cellulitis of foot Instructions: ED Cellulitis, ED Dysuria, Uncertain Cause (Adult) Prescriptions: New cephalexin 500 mg capsule 500 mg PO Q6 Qty: 28 0RF No Action (DME) lancets [Accu-Chek Softclix Lancets] Misc See Rx Instructions .ROUTE .MEDSUPPLY Qty: 100 Rx Instructions: As directed, Test 4 times daily before meals and at bedtime (DME) Accu-Chek Christi Plus test strp Strip See Rx Instructions .ROUTE .MEDSUPPLY Qty: 10 Rx Instructions: As directed; Test 4 times daily before meals and at bedtime (DME) CPAP See Rx Instructions .Route .MEDSUPPLY Qty: 1 Rx Instructions: 14 cm H2O (DME) blood-glucose meter Misc See Rx Instructions .ROUTE .MEDSUPPLY Qty: 1 Rx Instructions: As directed (DME) blood pressure monitor [Blood Pressure Kit] Kit See Rx Instructions .ROUTE .MEDSUPPLY Qty: 1 Rx Instructions: As directed latanoprost 0.005 % drops 1 drp ophthalmic (eye) QHS vitamin E 400 unit capsule 800 unit PO DAILY Qty: 60 5RF (DME) pen needle, diabetic [Novofine 32] 32 gauge x 1/4 needle See Rx Instructions .ROUTE .MEDSUPPLY Qty: 200 6RF Rx Instructions: As directed; 4x/day (DME) Bilateral wrist splints See Rx Instructions .Route .MEDSUPPLY Qty: 2 0RF Rx Instructions: As directed insulin lispro [Humalog KwikPen Insulin] 100 unit/mL insulin pen 12 unit subcut TID Patient Comments: PT STATES SHE ONLY TAKES 12 UNITS IF HER BS IS 150+. DOES NOT DO SLIDING SCALE Rx Instructions: 12u with meals, 6u with snacks. +SSI 180-210+2; 211-240+3; 241-300+5; >300 +7 MDD 50 loratadine 10 mg tablet 10 mg PO DAILY Qty: 90 1RF Nurtec ODT 75 mg tablet,disintegrating 75 mg PO DAILY PRN (Reason: migraine headache) Qty: 8 5RF pregabalin 150 mg capsule 150 mg PO BID Qty: 180 1RF Linzess 145 mcg capsule 145 mcg PO DAILY Qty: 90 0RF Rx Instructions: TAKE 1 CAPSULE BY MOUTH IN THE MORNING omega-3 fatty acids 1,000 mg capsule 1,000 mg PO DAILY Qty: 90 0RF Eliquis 5 mg tablet 5 mg PO BID Qty: 180 1RF cholecalciferol (vitamin D3) 1,250 mcg (50,000 unit) capsule 1,250 mcg PO LUCIO Qty: 14 1RF lorazepam 0.5 mg tablet 0.5 mg PO Q4 PRN (Reason: anxiety) oxycodone 5 mg tablet 2.5 mg PO Q4 PRN duloxetine 60 mg capsule,delayed release(DR/EC) See Rx Instructions .ROUTE .COMPLEX Qty: 180 1RF Dose Instruction: TAKE 2 CAPSULES BY MOUTH DAILY Rx Instructions: TAKE 2 CAPSULES BY MOUTH DAILY ursodiol 250 mg tablet 250 mg PO BID Qty: 90 1RF ezetimibe [Zetia] 10 mg tablet 10 mg PO DAILY Qty: 60 2RF rosuvastatin 5 mg tablet 5 mg PO DAILY Qty: 60 0RF ciprofloxacin HCl 250 mg tablet 250 mg PO Q12H 7 Days Qty: 14 0RF fluticasone propionate 50 mcg/actuation spray,suspension 2 spray INTRANASAL DAILY PRN (Reason: Nasal Congestion) Rx Instructions: administer into each nostril albuterol sulfate [Ventolin HFA] 90 mcg/actuation HFA aerosol inhaler 1 - 2 puff inhalation Q4H PRN (Reason: Wheezing) insulin degludec [Tresiba FlexTouch U-100] 100 unit/mL (3 mL) insulin pen 35 unit SC QHS simethicone 80 mg tablet,chewable 80 mg PO 4X/DAY PRN (Reason: Flatulence) Qty: 30 1RF cholestyramine (with sugar) 4 gram powder 4 g PO DAILY Qty: 348.6 0RF Rx Instructions: administer w/meal; avoid other meds within 1hr before or 4-6hr after dose Jardiance 10 mg tablet 10 mg PO DAILY Qty: 30 6RF Prolia 60 mg/mL syringe 60 mg subcut [id number] Qty: 1 0RF metoprolol tartrate 25 mg tablet 12.5 mg PO BID Qty: 60 1RF allopurinol 200 mg tablet 200 mg PO DAILY Qty: 30 0RF pantoprazole 40 mg tablet,delayed release (DR/EC) 40 mg PO BID Qty: 180 1RF Primary Care Provider: Vamsi Epperson Referrals: Vamsi Epperson MD [Primary Care Provider] - Activity Restrictions/Additional Instructions: You may stop taking the Cipro and start the Keflex. Your urine did look improved, the Keflex will treat both your urine as well as your cellulitis. Return for worsening symptoms. Disposition Disposition: Home, Self Care
[2024-01-19 19:41] LABS: Absolute Lymphocyte Count 2.09 X10^3/uL (0.83-4.51); Basophil# 0.03 X10^3/uL; Basophil% 0.3 % (0-1); Eosinophil# 0.46 X10^3/uL; Eosinophils% 4.9 % (0-5); Hemoglobin 12.2 g/dL (12.0-15.0); Lymphocyte # 2.09 X10^3/ul (0.83-4.51); Lymphocyte % 22.2 % (19-41); Mean Corp Hgb Conc 31.3 g/dL (32-36); Mean Corpuscular Hgb 27.5 pg (27.0-32.0); Mean Corpuscular Volume 87.8 fL (81-99); Mean Platelet Vol. 10.6 fl (6.2-12.0); Monocyte# 0.81 X10^3/uL; Monocyte% 8.6 % (0-10); NRBC Flagged by Analyzer 0 % (0-5); Neutrophil # 5.98 X10^3/uL (2.7-7.7); Neutrophil % 63.7 % (47-70); Platelet Count 250 K/mm3 (150-450); RBC Distribution Width CV 14.8 % (11.6-14.6); RBC Distribution Width SD 47.7 fl (35.1-43.9); Red Blood Count 4.44 M/mm3 (4.2-5.4); White Blood Count 9.4 K/mm3 (4.4-11.0)
[2024-01-19 19:59] LABS: Anion Gap 4 (5-15); BUN 23 mg/dL (7-18); BUN/Creat Ratio 22.1 RATIO (10-20); Chloride 106 mmol/L (98-107); Creatinine, Serum 1.04 mg/dL (0.55-1.02); EST Glomerular Filtration Rate 56 mL/min (>60); Est Glom Filt Rate - Afr Amer 68 mL/min (>60); Glucose 83 mg/dL (74-106); Potassium 4.4 mmol/L (3.5-5.1); Sodium Level 139 mmol/L (136-145)
[2024-01-19 20:00] VITALS: BP 150/90; PULSE 88; RESP 16; TEMP 36.1; O2SAT 97
[2024-01-19 20:15] LABS: Bacteria 0 SEEN /hpf (None Seen); Mucous, Urine 0 SEEN /hpf (<or=2+); Red Blood Cells-Urine 0 SEEN /hpf (0-5)
[2024-01-19 20:16] LABS: Color, Urine Yellow (Yellow); Glucose, Dipstick 250 mg/dl (Normal); Ketone-Dipstick Negative (Negative); Leukocyte Esterase-Dipstick 25 /ul (Negative); Nitrite-Dipstick Negative (Negative); Occult Blood-Urine 50 /ul (Negative); Protein-Dipstick 100 mg/dl (Negative); Specific Gravity, Urine 1.025 (1.002-1.030); Urine Bilirubin Dipstick Negative (Negative); Urine Clarity Clear (Clear); Urine Urobilinogen Normal (Normal)
[2024-01-19 20:34] LABS: Squamous Epithelial Cells - UA 0-5 SEEN /hpf (5-10); White Blood Cells 5-10 SEEN /hpf (0-5)
[2024-01-19 20:44] VITALS: BP 150/82; PULSE 88; RESP 17; O2SAT 97
[2024-01-19] MEDS: Cephalexin 250 MG Capsule 500 MG PO (21:05)
[2024-01-19 21:06] VITALS: BP 150/82; PULSE 88; RESP 17; TEMP 36.1; O2SAT 97
== END 2024-01-19 21:30 | disposition home or self-care (01) ==
PROVIDERS: Nurse Practitioner; Emergency Provider Emergency Medicine; PCP Internal Medicine; Visit Provider Emergency Medicine
DX: L03.116 Cellulitis of left lower limb (principal); E11.22 Type 2 diabetes mellitus with diabetic chronic kidney disease; Z79.4 Long term (current) use of insulin; N18.30 Chronic kidney disease, stage 3 unspecified; R30.0 Dysuria; I25.10 Atherosclerotic heart disease of native coronary artery without angina pectoris; I12.9 Hypertensive chronic kidney disease with stage 1 through stage 4 chronic kidney disease, or unspecified chronic kidney disease; Z79.01 Long term (current) use of anticoagulants; Z86.711 Personal history of pulmonary embolism; E78.00 Pure hypercholesterolemia, unspecified; K21.9 Gastro-esophageal reflux disease without esophagitis; Z79.899 Other long term (current) drug therapy; N39.0 Urinary tract infection, site not specified
CPT/HCPCS: 80048; 81001; 85025; 99284; A4216

== ENCOUNTER 2024-01-26 19:30 | Emergency (ER) | payer MEDICARE, SELFPAY ==
[2024-01-26 19:31] VITALS: BP 150/104; PULSE 84; RESP 16; TEMP 36.6; O2SAT 98; BMI 43.2
[2024-01-26 19:37] VITALS: BP 150/104; PULSE 85; RESP 16; TEMP 36.6; O2SAT 98
--- NOTE | 2024-01-26 19:55 | EKG12_ITS ---
Test Reason : DYSRHYTHMIA Blood Pressure : / mmHG Vent. Rate : 081 BPM Atrial Rate : 081 BPM P-R Int : 158 ms QRS Dur : 084 ms QT Int : 358 ms P-R-T Axes : 066 -25 017 degrees QTc Int : 415 ms Normal sinus rhythm Minimal voltage criteria for LVH, may be normal variant ( R in aVL ) Borderline ECG Confirmed by ADELINA MORENO MD ([id number]), editorial clerk ALEXANDER HUNTER ([id number]) on 01/27/2024 10:29:12 AM Referred By: MARY CARMEN Confirmed By:ADELINA MORENO MD
--- NOTE | 2024-01-26 19:56 | EX.ED.UPPERE ---
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 History of diabetes and stroke. History of gout. Atraumatic left wrist pain for the last several days. No falls or trauma. No fever or chills. Currently on antibiotic Keflex for UTI and leg cellulitis. She is on allopurinol. She has had gout in his left wrist before. Chief Complaint: Edema Informant: patient Occured/Mechanism Mechanism/Context: No injury and No blunt trauma Onset/Context/Timing Onset: Days Context: Gradual Onset Timing: Continuous Quality of Pain: Dull and Aching Current Severity: Moderate Maximum Severity: Moderate Associated Symptoms Associated Symptoms: Negative for Parasthesia, Weakness or Loss of Funtion Narrative Narrative: 69-year-old female atraumatic left wrist pain with history of gout. No fever or chills. No trauma. Prior similar symptoms: Yes Recent Illness/Hospitalization: Yes PFSH PFSH Medical History Abnormal thyroid function test Anemia Anxiety Anxiety and depression Arthritis Back pain Bilateral lower extremity edema Blackout Chronic neck and back pain CKD (chronic kidney disease), stage III COVID-19 CPAP (continuous positive airway pressure) dependence Depression Diabetes Diabetes Dietary restriction Difficulty balancing when standing Difficulty swallowing Dizziness DVT (deep venous thrombosis) Elevated troponin Encounter for vitamin deficiency screening Essential hypertension Fatigue Fatty liver Fibromyalgia Fibrosis of liver Flu vaccine need GERD (gastroesophageal reflux disease) Glaucoma Gout Grief reaction Hematuria High cholesterol History of echocardiogram History of pain when walking History of renal disease History of stress test History of thyroid nodule Hx of phlebitis Hypercalcemia Hyperlipidemia Hypertension Insomnia Insulin dependent diabetes mellitus Leg cramps Limb weakness Liver disease Loss of hearing Lyme disease Macular degeneration Migraine headache Morbid obesity Myositis Non-smoker Obesity On home oxygen therapy [place] on CPAP Osteoporosis Polymyositis Respiratory failure Restless legs Sensorineural hearing loss of both ears Shoulder pain Sinusitis Sleep apnea Stroke/cerebrovascular accident Type 2 diabetes mellitus UTI (urinary tract infection) Vitamin D deficiency Wears glasses Home Medications CPAP #1 ea 09/24/20 [History Last Taken Unknown] blood pressure monitor (Blood Pressure Kit) #1 ea 09/24/20 [History Last Taken Unknown] blood sugar diagnostic (Accu-Chek Christi Plus test strips) #10 ea 09/24/20 [History Last Taken Unknown] blood-glucose meter #1 ea 09/24/20 [History Last Taken Unknown] lancets (Accu-Chek Softclix Lancets) #100 ea 09/24/20 [History Last Taken Unknown] latanoprost 0.005 % eye drops 1 drp ophthalmic (eye) QHS MACULAR DEGENRATION 02/24/21 [History Last Taken Unknown] simethicone 80 mg chewable tablet 80 mg PO 4X/DAY PRN Flatulence #30 tabs 12/07/21 [Rx Last Taken Unknown] vitamin E 268 mg (400 unit) capsule 800 unit PO DAILY vitamin #60 caps 02/08/22 [Rx Last Taken 11/01/23] Bilateral wrist splints #2 ea 06/07/22 [Rx Last Taken Unknown] pen needle, diabetic 32 gauge x 1/4 (Novofine 32) #200 ea 07/27/22 [Rx Last Taken Unknown] cholestyramine (with sugar) 4 gram oral powder 4 g PO DAILY digestion #348.6 grams 08/12/22 [Rx Last Taken Unknown] fluticasone propionate 50 mcg/actuation nasal spray,suspension 2 spray intranasal DAILY PRN Nasal Congestion 09/06/22 [History Last Taken Unknown] insulin lispro 100 unit/mL subcutaneous pen (Humalog KwikPen (U-100) Insulin) 12 unit subcut TID 02/28/23 [History Last Taken 10/31/23] Jardiance 10 mg tablet (empagliflozin) 10 mg PO DAILY #30 tabs 03/14/23 [Rx Last Taken 11/01/23] denosumab 60 mg/mL subcutaneous syringe (Prolia) 60 mg subcut [id number] bone health #1 mL 03/17/23 [Rx Last Taken Unknown] loratadine 10 mg tablet 10 mg PO DAILY allergies #90 tabs 08/23/23 [Rx Last Taken 11/01/23] pregabalin 150 mg capsule 150 mg PO BID pain #180 caps 08/23/23 [Rx Last Taken 11/01/23] rimegepant 75 mg disintegrating tablet (Nurtec ODT) 75 mg PO DAILY PRN migraine headache #8 tabs 08/23/23 [Rx Last Taken Unknown] albuterol sulfate 90 mcg/actuation aerosol inhaler (Ventolin HFA) 1 - 2 puff inhalation Q4H PRN Wheezing 11/01/23 [History Last Taken 12/25/23] insulin degludec 100 unit/mL (3 mL) subcutaneous pen (Tresiba FlexTouch U-100 insulin) 35 unit subcut QHS 11/01/23 [History Last Taken 10/31/23] apixaban 5 mg tablet (Eliquis) 5 mg PO BID BLOOD THINNER #180 tabs 11/16/23 [Rx Last Taken Unknown] cholecalciferol (vitamin D3) 1,250 mcg (50,000 unit) capsule 1,250 mcg PO LUCIO vitamin #14 caps 11/16/23 [Rx Last Taken Unknown] linaclotide 145 mcg capsule (Linzess) 145 mcg PO DAILY BOWELS #90 caps 11/16/23 [Rx Last Taken Unknown] omega-3 fatty acids 1,000 mg capsule 1,000 mg PO DAILY #90 caps 11/16/23 [Rx Last Taken Unknown] metoprolol tartrate 25 mg tablet 12.5 mg (1/2 x 25 mg) PO BID #60 tabs 11/21/23 [Rx Last Taken Unknown] duloxetine 60 mg capsule,delayed release See Rx Instructions .Route .COMPLEX #180 caps 12/23/23 [Rx Last Taken Unknown] ezetimibe 10 mg tablet (Zetia) 10 mg PO DAILY #60 tabs 12/23/23 [Rx Last Taken Unknown] lorazepam 0.5 mg tablet 0.5 mg PO Q4 PRN anxiety 12/23/23 [History Last Taken Unknown] oxycodone 5 mg tablet 2.5 mg PO Q4 PRN 12/23/23 [History Last Taken Unknown] rosuvastatin 5 mg tablet 5 mg PO DAILY #60 tabs 12/23/23 [Rx Last Taken Unknown] ursodiol 250 mg tablet 250 mg PO BID gallstones #90 tabs 12/23/23 [Rx Last Taken Unknown] allopurinol 200 mg tablet 200 mg PO DAILY #30 tabs 12/27/23 [Rx Last Taken Unknown] pantoprazole 40 mg tablet,delayed release 40 mg PO BID reflux #180 tabs 01/16/24 [Rx Last Taken Unknown] cephalexin 500 mg capsule 500 mg PO Q6 #28 CAPSULES 01/19/24 [Rx Last Taken Unknown] prednisone 20 mg tablet 40 mg (2 x 20 mg) PO DAILY 7 days #14 tabs 01/26/24 [Rx Last Taken Unknown] Allergy/AdvReac Type Severity Reaction Status Date / Time saliva substitute Allergy Severe Angioedema Verified 01/26/24 19:32 combination no.9 [From Biotene PBF] gemfibrozil AdvReac Severe Myalgia Verified 01/26/24 19:32 [id number] Reductase AdvReac Severe muscle pain Verified 01/26/24 19:32 Inhibitor Family History Brother Diabetes Mother Diabetes Heart disease Hypertension Grandmother Diabetes Sister Diabetes Heart disease Hypertension Thyroid disorder Father Kidney disease Grandfather Kidney disease Surgical History H/O: hysterectomy History of bilateral knee arthroplasty History of cholecystectomy History of esophagogastroduodenoscopy (EGD) Hx of colonoscopy Social History Smoking Status: Never smoker second hand exposure: No alcohol intake: never substance use type: does not use yessenia/roman catholic: Sabianist seatbelt use: always ROS ROS ED ROS Narrative Denies recent illness. Denies fever or chills. Denies redness to the wrist. Mild atraumatic wrist swelling. Review of Systems ROS Unobtainable: Denies due to encephalopathy Constitutional Constitutional ED: Denies chills or fever(s) Eyes Eyes: Denies blurry vision ENT ENT ED: Denies ear pain Cardiovascular Cardiovascular: Denies chest pain Respiratory/Chest Respiratory/Chest: Denies cough or dyspnea Gastrointestinal Gastrointestinal: Denies abdominal pain Genitourinary Genitourinary ED: Denies dysuria or hematuria Musculoskeletal Musculoskeletal: Denies back pain or myalgias Integumentary Denies abscess or Abrasions Neurologic Neurologic: Denies headache(s) Psychiatric Psychiatric: Denies anxiety or depression Endocrine Endocrinology: Denies cold intolerance Hematologic/Lymphatic Hematologic/Lymphatic: Denies lymphadenopathy Allergic/Immunologic Allergic/Immunologic ED: Denies mouth swelling or tongue swelling EXAM Physical Exam Narrative Exam Narrative: Well-appearing 69-year-old female. Vital signs stable afebrile. Does not look septic toxic. No distress. H EENT exam unremarkable. Mytrex members. Neck nontender no JVD. No lymphadenopathy. Lungs clear to auscultation. Heart regular rhythm rate about 80 no murmur. Chest wall and ribs nontender. Abdomen soft nontender. Moving all 4 extremities. Her left wrist has mild swelling. No cellulitis. No septic joint. Pain with flexion extension of the wrist. No bony deformity. Normal radial pulse. Normal train conductor strength. No lymphangitic streaking. Elbow and shoulder nontender. No axillary lymphadenopathy. His exam is consistent with possible gout. There is no signs of infection to the wrist. Neurologically she is awake alert. Answering questions following commands. Const Vital Signs: 01/26/24 19:31 01/26/24 19:31 01/26/24 19:37 Temperature 98 F 98 F Temperature Source Temporal Temporal Pulse Rate 84 85 Respiratory Rate 16 16 Respiratory Effort Normal Non-Labored Respiratory Pattern Normal Blood Pressure 150/104 H 150/104 H Blood Pressure Mean 119 119 Pulse Ox 98 98 Oxygen Delivery Method Room Air Room Air Positive well nourished and well developed; Negative for cachectic, contractures or unkempt General Appearance ED: well developed and NAD; Negative for unkempt, cachectic, contractures, cyanotic or diaphoretic Nutritional Appearance: Negative for cachectic HEENT Reports moist mucous membranes normocephalic and atraumatic; Negative for trauma or tenderness Eyes PERRL and EOMs intact bilaterally General Eye ED: Negative for other Neck full ROM and supple General: Negative for tenderness Lymph Lymphatic: Negative for other Chest Wall inspection of chest normal and palpation of chest normal Chest: Negative for other Resp normal respiratory effort and clear to auscultation bilaterally Effort and Inspection: Negative for pain with movement Auscultation: Negative for rales, rhonchi or wheezes Cardio regular rate, regular rhythm, S1 normal heart sound, S2 normal heart sound and no murmurs Rate: Negative for bradycardia or tachycardic Rhythm: Negative for abnormal rhythm GI non-tender, non-distended and no masses Inspection: Negative for abdominal distention Palpation: soft; Negative for tender, guarding or rebound tenderness present Back/Spine no CVA tenderness Extremity normal to inspection and full ROM Extremity Narrative: Except left wrist. Mild swelling. Pain with range of motion. No cellulitis. No redness. No deformity. No lymphangitic streaking. No axillary lymphadenopathy. Left elbow and shoulder nontender normal range of motion. They can order exam consistent with gout. General Extremety ED: Yes edema General Extremity: edema Neuro oriented x3, CN's II-XII intact bilaterally and moves all extremities Sensorium / Orientation: alert, oriented to person, oriented to place and oriented to time Motor Exam: strength 5/5 throughout Psych mental status grossly normal Appearance: Negative for unkempt Attitude: No agitated Mood & Affect: Negative for depressed, anxious or tearful Skin General Skin Exam: Negative for petechiae Lesions: no lesions Rashes: no rashes Trauma: no lacerations or abrasions; Negative for abrasion or laceration MDM MDM MDM Narrative Medical decision making narrative: 69-year-old female atraumatic left wrist pain and swelling history of gout very well may be gout. Does not look like a septic joint. There is no history of trauma. X-ray and labs are being obtained. She will be given Tylenol for pain. She did not want anything more than that and is on chronic anticoagulation so I did not want to give her ibuprofen. Repeat exam at 9:03 PM patient doing well. Wrist exam unchanged. Again not red nor cellulitic nor septic. Patient I discussed her test results this to be treated as gout. She will be placed on prednisone 40 mg a day for a week. First dose given in the ER. Follow-up if not improving. Return if any signs of infection which we discussed. History & Record Review Discussion w/independent historian: Patient Additional record(s) reviewed:: Prior inpatient record, Prior outpatient record, Prior ED visit and Prior labs Lab Data Attestation: I reviewed the patient's lab results. Lab results narrative: CBC shows no acute abnormality. Normal white count of 10. H&H 12 and 40. Electrolytes unremarkable. Normal gap. Normal BUN and creatinine. Calcium slightly elevated 10.2 prior history of elevated calcium. Uric acid is normal at 5.1. Radiography Diagnostic Testing: Left wrist x-ray, 3 views, interpreted by myself shows no acute fracture. Mild soft tissue swelling. Chronic arthritic changes. Rhythm Strip Rhythm Strip: Sinus Rhythm Rate: 81 Ectopy: None EKG Initial EKG: Attestation: I personally reviewed and interpreted this EKG as follows: Interpretation: Sinus Rhythm and No Acute Injury Pattern Comments: Normal sinus rhythm rate 81 No acute signs of SC, ischemia or dysrhythmia. Discharge Plan Triage Chief Complaint: Edema ED Provider: Robert Gottlieb Dx/Rx/DC Orders Clinical Impression: History of blood clots, Chronic anticoagulation, Gout attack, History of diabetes mellitus Instructions: ED Gout Prescriptions: New prednisone 20 mg tablet 40 mg PO DAILY 7 Days Qty: 14 0RF No Action (DME) lancets [Accu-Chek Softclix Lancets] Misc See Rx Instructions .ROUTE .MEDSUPPLY Qty: 100 Rx Instructions: As directed, Test 4 times daily before meals and at bedtime (DME) Accu-Chek Christi Plus test strp Strip See Rx Instructions .ROUTE .MEDSUPPLY Qty: 10 Rx Instructions: As directed; Test 4 times daily before meals and at bedtime (DME) CPAP See Rx Instructions .Route .MEDSUPPLY Qty: 1 Rx Instructions: 14 cm H2O (DME) blood-glucose meter Misc See Rx Instructions .ROUTE .MEDSUPPLY Qty: 1 Rx Instructions: As directed (DME) blood pressure monitor [Blood Pressure Kit] Kit See Rx Instructions .ROUTE .MEDSUPPLY Qty: 1 Rx Instructions: As directed latanoprost 0.005 % drops 1 drp ophthalmic (eye) QHS vitamin E 400 unit capsule 800 unit PO DAILY Qty: 60 5RF (DME) pen needle, diabetic [Novofine 32] 32 gauge x 1/4 needle See Rx Instructions .ROUTE .MEDSUPPLY Qty: 200 6RF Rx Instructions: As directed; 4x/day (DME) Bilateral wrist splints See Rx Instructions .Route .MEDSUPPLY Qty: 2 0RF Rx Instructions: As directed insulin lispro [Humalog KwikPen Insulin] 100 unit/mL insulin pen 12 unit subcut TID Patient Comments: PT STATES SHE ONLY TAKES 12 UNITS IF HER BS IS 150+. DOES NOT DO SLIDING SCALE Rx Instructions: 12u with meals, 6u with snacks. +SSI 180-210+2; 211-240+3; 241-300+5; >300 +7 MDD 50 loratadine 10 mg tablet 10 mg PO DAILY Qty: 90 1RF Nurtec ODT 75 mg tablet,disintegrating 75 mg PO DAILY PRN (Reason: migraine headache) Qty: 8 5RF pregabalin 150 mg capsule 150 mg PO BID Qty: 180 1RF Linzess 145 mcg capsule 145 mcg PO DAILY Qty: 90 0RF Rx Instructions: TAKE 1 CAPSULE BY MOUTH IN THE MORNING omega-3 fatty acids 1,000 mg capsule 1,000 mg PO DAILY Qty: 90 0RF Eliquis 5 mg tablet 5 mg PO BID Qty: 180 1RF cholecalciferol (vitamin D3) 1,250 mcg (50,000 unit) capsule 1,250 mcg PO LUCIO Qty: 14 1RF lorazepam 0.5 mg tablet 0.5 mg PO Q4 PRN (Reason: anxiety) oxycodone 5 mg tablet 2.5 mg PO Q4 PRN duloxetine 60 mg capsule,delayed release(DR/EC) See Rx Instructions .ROUTE .COMPLEX Qty: 180 1RF Dose Instruction: TAKE 2 CAPSULES BY MOUTH DAILY Rx Instructions: TAKE 2 CAPSULES BY MOUTH DAILY ursodiol 250 mg tablet 250 mg PO BID Qty: 90 1RF ezetimibe [Zetia] 10 mg tablet 10 mg PO DAILY Qty: 60 2RF rosuvastatin 5 mg tablet 5 mg PO DAILY Qty: 60 0RF fluticasone propionate 50 mcg/actuation spray,suspension 2 spray INTRANASAL DAILY PRN (Reason: Nasal Congestion) Rx Instructions: administer into each nostril albuterol sulfate [Ventolin HFA] 90 mcg/actuation HFA aerosol inhaler 1 - 2 puff inhalation Q4H PRN (Reason: Wheezing) insulin degludec [Tresiba FlexTouch U-100] 100 unit/mL (3 mL) insulin pen 35 unit SC QHS cephalexin 500 mg capsule 500 mg PO Q6 Qty: 28 0RF simethicone 80 mg tablet,chewable 80 mg PO 4X/DAY PRN (Reason: Flatulence) Qty: 30 1RF cholestyramine (with sugar) 4 gram powder 4 g PO DAILY Qty: 348.6 0RF Rx Instructions: administer w/meal; avoid other meds within 1hr before or 4-6hr after dose Jardiance 10 mg tablet 10 mg PO DAILY Qty: 30 6RF Prolia 60 mg/mL syringe 60 mg subcut [id number] Qty: 1 0RF metoprolol tartrate 25 mg tablet 12.5 mg PO BID Qty: 60 1RF allopurinol 200 mg tablet 200 mg PO DAILY Qty: 30 0RF pantoprazole 40 mg tablet,delayed release (DR/EC) 40 mg PO BID Qty: 180 1RF Primary Care Provider: Vamsi Epperson Referrals: Vamsi Epperson MD [Primary Care Provider] - 1 Week if not improving Activity Restrictions/Additional Instructions: I think your wrist pain and swelling is from a gout flareup. Do not ice the wrist that will make it worse. Tylenol for pain. The steroid prednisone 40 mg once a day for a week. Follow-up with your doctor if not improving. If your wrist gets red or you develop a fever return. Otherwise follow-up with your physician if not improving. Disposition Disposition: Home, Self Care
--- NOTE | 2024-01-26 19:58 | RAD_ITS ---
STUDY: X-RAY - LEFT WRIST REASON FOR EXAM: Female, 69 years old. pain TECHNIQUE: 3 view(s) of the wrist were obtained. COMPARISON: None. FINDINGS: There is demineralization of the radius and ulna. Normal radiocarpal articulation. Normal distal radioulnar articulation. Normal carpal bones. Normal carpal articulations. There is degenerative arthrosis of the carpometacarpal articulation of the thumb. Normal second through fifth carpometacarpal articulations. Normal visualized metacarpal bones. There is diffuse soft tissue swelling. There is no demonstrated acute fracture. RAD/Wrist min 3 Views IMPRESSION: Diffuse demineralization. No fracture or dislocation seen. Electronically Signed: Mauricio Rider MD at 20:33 EDT ,
[2024-01-26] MEDS: Acetaminophen 500 MG Tablet 1000 MG PO (20:05)
[2024-01-26 20:25] LABS: Absolute Lymphocyte Count 1.52 X10^3/uL (0.83-4.51); Absolute Neutrophil Count 7.6 X10^3/uL (2.0-7.7); Anion Gap 5 (5-15); BUN 15 mg/dL (7-18); BUN/Creat Ratio 16.3 RATIO (10-20); Basophil# 0.03 X10^3/uL; Basophil% 0.3 % (0-1); Calcium,Total 10.2 mg/dL (8.5-10.1); Chloride 105 mmol/L (98-107); Creatinine, Serum 0.92 mg/dL (0.55-1.02); EST Glomerular Filtration Rate 65 mL/min (>60); Est Glom Filt Rate - Afr Amer 78 mL/min (>60); Estimated Creatinine Clearance 63.98 ml/min; Glucose 81 mg/dL (74-106); Hematocrit 40.8 % (37-47); Hemoglobin 12.8 g/dL (12.0-15.0); Lymphocyte # 1.52 X10^3/ul (0.83-4.51); Mean Corp Hgb Conc 31.4 g/dL (32-36); Mean Corpuscular Hgb 27.2 pg (27.0-32.0); Mean Corpuscular Volume 86.8 fL (81-99); Mean Platelet Vol. 11.4 fl (6.2-12.0); Monocyte# 0.61 X10^3/uL; NRBC Flagged by Analyzer 0 % (0-5); Neutrophil # 7.61 X10^3/uL (2.7-7.7); Neutrophil % 75.3 % (47-70); Platelet Count 298 K/mm3 (150-450); Potassium 3.5 mmol/L (3.5-5.1); RBC Distribution Width CV 14.4 % (11.6-14.6); RBC Distribution Width SD 45.6 fl (35.1-43.9); Sodium Level 138 mmol/L (136-145); Uric Acid 5.1 mg/dL (2.6-6.0); White Blood Count 10.1 K/mm3 (4.4-11.0)
[2024-01-26 20:31] VITALS: PULSE 81
[2024-01-26 20:37] VITALS: BP 155/87; PULSE 81; RESP 17; TEMP 36.7; O2SAT 98
[2024-01-26 21:00] VITALS: BP 174/81; PULSE 82; RESP 14; O2SAT 98
[2024-01-26] MEDS: predniSONE 20 MG Tablet 40 MG PO (21:41)
[2024-01-26 21:43] VITALS: BP 174/82; PULSE 78; RESP 14; TEMP 36.6; O2SAT 97
== END 2024-01-26 21:50 | disposition home or self-care (01) ==
PROVIDERS: Emergency Provider Emergency Medicine; PCP Internal Medicine; Visit Provider Emergency Medicine
DX: M10.9 Gout, unspecified (principal); E11.22 Type 2 diabetes mellitus with diabetic chronic kidney disease; N18.30 Chronic kidney disease, stage 3 unspecified; R60.9 Edema, unspecified; M79.7 Fibromyalgia; Z86.718 Personal history of other venous thrombosis and embolism; Z86.711 Personal history of pulmonary embolism; Z86.73 Personal history of transient ischemic attack (TIA), and cerebral infarction without residual deficits; N39.0 Urinary tract infection, site not specified; Z79.899 Other long term (current) drug therapy; M25.532 Pain in left wrist
CPT/HCPCS: 73110; 80048; 84550; 85025; 93005; 99283; A4216

== ENCOUNTER 2024-03-13 11:00 | Outpatient (RCR) | payer MEDICARE, SELFPAY ==
[2024-02-28 09:20] VITALS: BP 177/100; PULSE 77; RESP 18; TEMP 35.3; BMI 38.5
--- NOTE | 2024-02-28 10:10 | PCM.WC.HP ---
History of Present Illness Date of Service: 02/28/24 Progress of Wound: Patient history of bilateral lower extremity swelling in setting of lymphedema. 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 Patient is anticoagulated with Eliquis currently. Patient denies any chest pain calf pain shortness of breath. Patient has no open wounds at current. [facility] Medical History UTI (urinary tract infection) Hypercalcemia Grief reaction Encounter for vitamin deficiency screening Diabetes Sleep apnea On home oxygen therapy Hypertension DVT (deep venous thrombosis) Stroke/cerebrovascular accident Elevated troponin Respiratory failure COVID-19 Flu vaccine need Anxiety and depression Essential hypertension Fibrosis of liver Polymyositis Hematuria Depression Anxiety Fatty liver Difficulty swallowing Obesity Bilateral lower extremity edema Myositis Chronic neck and back pain Limb weakness Difficulty balancing when standing Liver disease Shoulder pain Abnormal thyroid function test Fatigue Dizziness Loss of hearing Wears glasses Insulin dependent diabetes mellitus Arthritis History of renal disease Anemia Hx of phlebitis Restless legs Back pain Migraine headache Blackout Dietary restriction Non-smoker CPAP (continuous positive airway pressure) dependence Leg cramps History of pain when walking History of echocardiogram History of stress test Sinusitis Hyperlipidemia High cholesterol Diabetes Glaucoma Vitamin D deficiency Type 2 diabetes mellitus Sensorineural hearing loss of both ears Osteoporosis BENTLEY on CPAP Morbid obesity Macular degeneration Lyme disease Insomnia History of thyroid nodule Gout GERD (gastroesophageal reflux disease) Fibromyalgia CKD (chronic kidney disease), stage III Home Medications ?Medication ?Instructions ?Recorded ?Last Taken ?Type CPAP #1 ea 09/24/20 Unknown History blood pressure monitor (Blood #1 ea 09/24/20 Unknown History Pressure Kit) blood sugar diagnostic (Accu-Chek #10 ea 09/24/20 Unknown History Christi Plus test strips) blood-glucose meter #1 ea 09/24/20 Unknown History lancets (Accu-Chek Softclix #100 ea 09/24/20 Unknown History Lancets) latanoprost 0.005 % eye drops 1 drp ophthalmic (eye) QHS MACULAR 02/24/21 Unknown History DEGENRATION simethicone 80 mg chewable tablet 80 mg PO 4X/DAY PRN Flatulence #30 12/07/21 Unknown Rx tabs vitamin E 268 mg (400 unit) capsule 800 unit PO DAILY vitamin #60 caps 02/08/22 11/01/23 Rx Bilateral wrist splints #2 ea 06/07/22 Unknown Rx pen needle, diabetic 32 gauge x #200 ea 07/27/22 Unknown Rx 1/4 (Novofine 32) fluticasone propionate 50 2 spray intranasal DAILY PRN Nasal 09/06/22 Unknown History mcg/actuation nasal Congestion spray,suspension insulin lispro 100 unit/mL 12 unit subcut TID 02/28/23 10/31/23 History subcutaneous pen (Humalog KwikPen (U-100) Insulin) loratadine 10 mg tablet 10 mg PO DAILY allergies #90 tabs 08/23/23 11/01/23 Rx pregabalin 150 mg capsule 150 mg PO BID pain #180 caps 08/23/23 11/01/23 Rx rimegepant 75 mg disintegrating 75 mg PO DAILY PRN migraine 08/23/23 Unknown Rx tablet (Nurtec ODT) headache #8 tabs albuterol sulfate 90 mcg/actuation 1 - 2 puff inhalation Q4H PRN 11/01/23 09/19/23 History aerosol inhaler (Ventolin HFA) Wheezing apixaban 5 mg tablet (Eliquis) 5 mg PO BID BLOOD THINNER #180 tabs 11/16/23 Unknown Rx cholecalciferol (vitamin D3) 1,250 1,250 mcg PO LUCIO vitamin #14 caps 11/16/23 Unknown Rx mcg (50,000 unit) capsule linaclotide 145 mcg capsule 145 mcg PO DAILY BOWELS #90 caps 11/16/23 Unknown Rx (Linzess) omega-3 fatty acids 1,000 mg 1,000 mg PO DAILY #90 caps 11/16/23 Unknown Rx capsule metoprolol tartrate 25 mg tablet 12.5 mg (1/2 x 25 mg) PO BID #60 11/21/23 Unknown Rx tabs duloxetine 60 mg capsule,delayed See Rx Instructions .Route 12/23/23 Unknown Rx release .COMPLEX #180 caps ezetimibe 10 mg tablet (Zetia) 10 mg PO DAILY #60 tabs 12/23/23 Unknown Rx lorazepam 0.5 mg tablet 0.5 mg PO Q4 PRN anxiety 12/23/23 Unknown History ursodiol 250 mg tablet 250 mg PO BID gallstones #90 tabs 12/23/23 Unknown Rx allopurinol 200 mg tablet 200 mg PO DAILY #30 tabs 12/27/23 Unknown Rx pantoprazole 40 mg tablet,delayed 40 mg PO BID reflux #180 tabs 01/16/24 Unknown Rx release insulin degludec 100 unit/mL (3 45 unit subcut QHS 02/16/24 Unknown History mL) subcutaneous pen (Tresiba FlexTouch U-100 insulin) Allergy/AdvReac Type Severity Reaction Status Date / Time saliva substitute Allergy Severe Angioedema Verified 02/16/24 15:18 combination no.9 (From [facility]) gemfibrozil AdvReac Severe Myalgia Verified 02/16/24 15:18 [id number] Reductase AdvReac Severe muscle pain Verified 02/16/24 15:18 Inhibitor Family History Brother Diabetes Mother Diabetes Heart disease Hypertension Grandmother Diabetes Sister Diabetes Heart disease Hypertension Thyroid disorder Father Kidney disease Grandfather Kidney disease Surgical History History of esophagogastroduodenoscopy (EGD) Hx of colonoscopy History of bilateral knee arthroplasty H/O: hysterectomy History of cholecystectomy Social History Smoking Status: Never smoker second hand exposure: No alcohol intake: never substance use type: does not use yessenia/samaritan: Restoration seatbelt use: always ROS Constitutional Constitutional: Denies body ache(s), change in weight or excessive sweating Eyes Eyes: Denies acute decrease in peripheral vision, blurry vision or burning ENT HEENT: Denies abnormal hearing, bleeding gums or dry mouth Cardiovascular Cardiovascular: Denies abdominal bloating, abdominal edema or bluish discoloration of hand/feet Respiratory/Chest Respiratory/Chest: Denies change in mental status, chest tightness or cough Gastrointestinal Gastrointestinal: Denies abdominal pain, anorexia or change in stool character Genitourinary Genitourinary: Denies abdominal discomfort, anuria or change in urinary stream Musculoskeletal Musculoskeletal: Denies abnormal gait, arthralgias or extremity pain Vital Signs Vital Signs Vital Signs: 02/28/24 09:20 Temperature 95.6 F L Temperature Source Temporal Pulse Rate 77 Respiratory Rate 18 Blood Pressure 177/100 H Blood Pressure Mean 125 Blood Pressure Source Monitor Blood Pressure Position Semi-Fowlers Blood Pressure Location Left Arm Weight Weight: 92.533 kg Body Mass Index (BMI) 38.5 Physical Exam Narrative Vascular: Dorsalis pedis posterior tibial pulses palpable 2 out of 4. Capillary fill time brisk to all digits bilaterally. Digital hair growth noted bilateral feet. +2 pitting edema to bilateral lower extremity marked at HARDIK malleoli region. Neurologic: Light touch protective sensation intact bilateral feet. Dermatologic: No open wounds. Skin well-hydrated and intact. Musculoskeletal: No pain with calf squeeze. Muscular strength full to bilateral lower extremity compartments. No wound forming deformities noted. Debridement Note Debridement Note Post-Debridement Measurements and Additional Note: Post-Debridement Measurements/Treatment - Nurse 1 - General Ulcer Assessment Start: 02/28/24 09:16 Freq: Status: Active Protocol: LOWEXT Activity Type Activity Date Activity User E-sign Co-sign Detail Recorded Client Recorded Date Recorded By Document 02/28/24 09:20 RB wound center 02/28/24 09:25 RB 02/28/24 09:20 - Today's Visit Information Type of service Initial Visit Arrival Mode Ambulatory, Walker Transfer Assistance None Patient Identification Verified (Name & Yes ) Patient Requires Transmission-Based No Precautions Height and Weight Height 5 ft 1 in Weight 92.533 kg Weight in Pounds 204.0 lbs Body Mass Index (BMI) 38.5 BMI Classification Obese BSA - Bhargav 1.91 Vital Signs Temperature (97.8 F-99.1 F) 95.6 F L Temperature Source Temporal Pulse Rate (60-100) 77 Pulse Location Monitor Respiratory Rate (12-18) 18 Respiratory rate source Observation Blood Pressure (90/60-120/80) 177/100 H Blood Pressure Mean (mm Hg) 125 Source Monitor Position Semi-Fowlers Blood Pressure Location Left Arm Pain Scale: 0-10 Numeric Is Patient Pain Free? No bilat LE -Description Aching -Intensity 3 -Duration (hours) Acute -Pain Behavior Rubbing Site -Pain Aggravating Factors Walking -Alleviating Factors/Interventions Medication -Effectiveness of Alleviating Factor/ Moderately Intervention effective Lower Extremity Assessment/ Foot Assessment/ Toe Nail Assessment Right -Posterior Tibial Palpable Yes -Posterior Tibial Doppler Multiphasic -Dorsalis Pedis Palpable Yes -Dorsalis Pedis Doppler Multiphasic -Hair Growth on Legs Yes -Hair Growth on Toes No -Temperature of Extremity Warm -Capillary Refill Greater than 3 Seconds -Dependent Rubor No -Blanched when Elevated No -Lipodermatosclerosis No -Other Deformity No -Prior Foot Ulcer No -Charcot Joint No -Prior Amputation No -Thick No -Discolored No -Deformed No -Improper Length & Hygeine Yes Left -Posterior Tibial Palpable Yes -Posterior Tibial Doppler Multiphasic -Dorsalis Pedis Palpable Yes -Dorsalis Pedis Doppler Multiphasic -Extremity Color Normal -Hair Growth on Legs Yes -Hair Growth on Toes No -Temperature of Extremity Warm -Capillary Refill Greater than 3 Seconds -Dependent Rubor No -Blanched when Elevated No -Lipodermatosclerosis No -Thick No -Discolored No -Deformed No -Improper Length & Hygeine Yes Neuropathy Assessment Feet - Top Side and Bottom <Entered> (a) Communication Assessment Preferred language Bengali Multiple Pressure Riveter Operator Required No Able to Read Yes Able to Write Yes Communication Tools None Caregiver Communication Skills No Impairment Impairment Right Hearing Abillity Normal Left Hearing Abillity Normal Visual Assistive Devices Glasses Teaching Assessment Preferences Verbal,Written, Demonstration Barriers to Learning None Readiness To Learn Good Willingness to Engage in Self Management Med Activies Readiness to Engage in Self Management Med Activities Anxiety Level Calm Cooperation Cooperative Perception Coherent Interest in Health Problem Asks Questions Education Importance Acknowledges Need Does Patient Smoke tobacco or other No substances Smoking Status Never smoker Is Patient Diabetic Yes Functional Assessment Recent Decline in Ability to Perform Denies Any Declines Assistive Device With Patient No Culture/Confucianist/Trailer Sections Assembler Cultural/Confucianist Needs that may affect No Treatment Plan Would you allow our hospital certified addiction counselor to No meet you for the purpose of spiritual/ emotional support? Trailer Sections Assembler to contact place of gnosticism No Teaching: Wound Center *Welcome to the Wound Center -Person Taught Patient -Teaching Method Discussion -Response to teaching Verbalize understanding (a) 1 - + throughout - Nurse 1 - General Ulcer Measurement Start: 02/28/24 09:16 Freq: Status: Active Protocol: Activity Type Activity Date Activity User E-sign Co-sign Detail Recorded Client Recorded Date Recorded By Document 02/28/24 09:20 RB wound center 02/28/24 09:25 RB 02/28/24 09:20 Wound Center Nurse 1 Lower Limb Edema Present Yes Right Calf (cm) 40 Right Ankle (cm) 21.5 Left Calf (cm) 35 Left Ankle (cm) 22 WC - Nurse 2 - General Ulcer CM Notes Start: 02/28/24 09:16 Freq: Status: Active Protocol: Activity Type Activity Date Activity User E-sign Co-sign Detail Recorded Client Recorded Date Recorded By Document 02/28/24 09:30 [id number] [id number] 02/28/24 09:31 JF 02/28/24 09:30 Pain Scale: 0-10 Numeric Is Patient Pain Free? Yes WC - Nurse 3 - General Ulcer D/C NN Start: 02/28/24 09:16 Freq: Status: Active Protocol: Activity Type Activity Date Activity User E-sign Co-sign Detail Recorded Client Recorded Date Recorded By Document 02/28/24 09:46 KW wound center 02/28/24 09:47 KW 02/28/24 09:46 Wound Care Center Nurse 3 Right -Tubular Bandage Double Layer -Size of Tubigrip Used Size F -Size F ($) 2 Left -Tubular Bandage Double Layer -Size of Tubigrip Used Size F -Size F ($) 2 Pain Scale: 0-10 Numeric Is Patient Pain Free? Yes WC - Visit Discharge Discharge Condition Stable Ambulatory Status Ambulatory, Walker Transportation Private Auto Medication Reconcilliation completed & No provided to patient/care provider Clinical Summary of Care Provided Yes Assessment/Plan Assessment/Plan (1) Lymphedema, not elsewhere classified: CODE(S): I89.0 - Lymphedema, not elsewhere classified PLAN: Exam performed Patient has bilateral lymphedema. Will plan for lymphedema pumps. Patient has compression stockings at home has difficulty wearing. Will plan for compression and elevation exercise for edema management. At current we will plan for double Tubigrip to bilateral lower extremity. Patient follow-up weekly.
--- NOTE | 2024-03-13 08:41 | ART_ITS ---
Reason For Study: LE Wound Procedure A bilateral lower extremity continuous wave Doppler with analog waveform analysis,segmental pressures,and ankle brachial indexes without exercise. Left Segmental Pressures Left brachial= 161mmHg. Left posterior tibial artery = 182mmHg. Left dorsalis pedis artery = 167mmHg. Left digit = 147 mmHg. The left posterior tibial artery waveforms are triphasic. The left dorsalis pedis waveforms are triphasic. Right Segmental Pressures Right brachial= 157mmHg. Right posterior tibial artery = 176mmHg. Right dorsalis pedis artery = 184mmHg. Right digit = 160 mmHg. The right posterior tibial artery waveforms are triphasic. The right dorsalis pedis waveforms are triphasic. Indices The right ankle brachial index by the posterior tibial artery is 1.09. The right ankle brachial index by the dorsalis pedis is 1.14. The right digital-brachial index is 0.99. The left ankle brachial index by the posterior tibial artery is 1.13. The left ankle brachial index by the dorsalis pedis is 1.04. The left digital-brachial index is 0.91. VL/Lower Ext Art Exam w/o Exercis Interpretation Summary Triphasic Doppler waveforms are noted at ankle level bilaterally. Pulse-volume recordings appear satisfactory at all levels bilaterally. Resting ankle-brachial indices are norm al bilaterally. Digital-brachial indices are normal bilaterally. There is no evidence of significant arterial occlusive disease in the lower ext remities bilaterally. Ordering Physician: Mart Keene Referring Physician: Vamsi Epperson Performed By: Armaan Eaton RVT
[2024-03-13 10:14] VITALS: BP 140/84; PULSE 73; RESP 18; TEMP 35.9; BMI 38.5
--- NOTE | 2024-03-13 10:25 | PN.PCM_ITS ---
History of Present Illness Date of Service: 03/13/24 Progress of Wound: Patient history of bilateral lower extremity swelling in setting of lymphedema. 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 Patient is anticoagulated with Eliquis currently. Patient denies any chest pain calf pain shortness of breath. Patient has no open wounds at current. Objective Data Objective Data Vital Signs: Vital Signs Temp Pulse Resp BP 96.6 F L 73 18 140/84 H 03/13/24 10:14 03/13/24 10:14 03/13/24 10:14 03/13/24 10:14 Weight: 92.533 kg Body Mass Index (BMI) 38.5 Physical Exam Narrative Vascular: Dorsalis pedis posterior tibial pulses palpable 2 out of 4. Capillary fill time brisk to all digits bilaterally. Digital hair growth noted bilateral feet. +2 pitting edema to bilateral lower extremity marked at HARDIK malleoli region. Neurologic: Light touch protective sensation intact bilateral feet. Dermatologic: No open wounds. Skin well-hydrated and intact. Musculoskeletal: No pain with calf squeeze. Muscular strength full to bilateral lower extremity compartments. No wound forming deformities noted. Debridement Note Debridement Note Post-Debridement Measurements and Additional Note: Post-Debridement Measurements/Treatment - Nurse 1 - General Ulcer Assessment Start: 02/28/24 09:16 Freq: Status: Active Protocol: .LOWEXT Activity Type Activity Date Activity User E-sign Co-sign Detail Recorded Client Recorded Date Recorded By Document 02/28/24 09:20 wound center 02/28/24 09:25 RB Document 03/13/24 10:14 RB wound 03/13/24 10:15 RB 02/28/24 03/13/24 09:20 10:14 - Today's Visit Information Type of service Initial Visit Follow-up Visit (Physician/RETAIL LEASING AGENT ) Arrival Mode Ambulatory, Ambulatory Walker Transfer Assistance None None Patient Identification Verified (Name & Yes Yes ) Patient Requires Transmission-Based No No Precautions Height and Weight Height 5 ft 1 in Weight 92.533 kg Weight in Pounds 204.0 lbs Body Mass Index (BMI) 38.5 38.5 BMI Classification Obese Obese BSA - Bhargav 1.91 Vital Signs Temperature (97.8 F-99.1 F) 95.6 F L 96.6 F L Temperature Source Temporal Temporal Pulse Rate (60-100) 77 73 Pulse Location Monitor Monitor Respiratory Rate (12-18) 18 18 Respiratory rate source Observation Observation Blood Pressure (90/60-120/80) 177/100 H 140/84 H Blood Pressure Mean (mm Hg) 125 102 Source Monitor Monitor Position Semi-Fowlers Semi-Fowlers Blood Pressure Location Left Arm Left Arm History Since Last Visit- (Skip if this is Patient's initial visit) Have you changed medications since your No last visit? Any new allergies or adverse reactions No Had a fall/change in ADL's that may No increase risk of falls Signs or symptoms of abuse and/or No neglect since last visit Have you been in the hospital since your No last visit? Has dressing in place as prescribed No Has compression in place as prescribed Yes Has offloadiing in place as prescribed No Experienced any changes in pain level or No management Pain Scale: 0-10 Numeric Is Patient Pain Free? No Yes bilat LE -Description Aching -Intensity 3 -Duration (hours) Acute -Pain Behavior Rubbing Site -Pain Aggravating Factors Walking -Alleviating Factors/Interventions Medication -Effectiveness of Alleviating Factor/ Moderately Intervention effective Lower Extremity Assessment/ Foot Assessment/ Toe Nail Assessment Right -Posterior Tibial Palpable Yes -Posterior Tibial Doppler Multiphasic -Dorsalis Pedis Palpable Yes -Dorsalis Pedis Doppler Multiphasic -Hair Growth on Legs Yes -Hair Growth on Toes No -Temperature of Extremity Warm -Capillary Refill Greater than 3 Seconds -Dependent Rubor No -Blanched when Elevated No -Lipodermatosclerosis No -Other Deformity No -Prior Foot Ulcer No -Charcot Joint No -Prior Amputation No -Thick No -Discolored No -Deformed No -Improper Length & Hygeine Yes Left -Posterior Tibial Palpable Yes -Posterior Tibial Doppler Multiphasic -Dorsalis Pedis Palpable Yes -Dorsalis Pedis Doppler Multiphasic -Extremity Color Normal -Hair Growth on Legs Yes -Hair Growth on Toes No -Temperature of Extremity Warm -Capillary Refill Greater than 3 Seconds -Dependent Rubor No -Blanched when Elevated No -Lipodermatosclerosis No -Thick No -Discolored No -Deformed No -Improper Length & Hygeine Yes Neuropathy Assessment Feet - Top Side and Bottom <Entered> (a) Communication Assessment Preferred language Bengali Reset Merchandiser Required No Able to Read Yes Able to Write Yes Communication Tools None Caregiver Communication Skills No Impairment Impairment Right Hearing Abillity Normal Left Hearing Abillity Normal Visual Assistive Devices Glasses Teaching Assessment Preferences Verbal,Written, Demonstration Barriers to Learning None Readiness To Learn Good Willingness to Engage in Self Management Med Activies Readiness to Engage in Self Management Med Activities Anxiety Level Calm Cooperation Cooperative Perception Coherent Interest in Health Problem Asks Questions Education Importance Acknowledges Need Does Patient Smoke tobacco or other No substances Smoking Status Never smoker Is Patient Diabetic Yes Functional Assessment Recent Decline in Ability to Perform Denies Any Declines Assistive Device With Patient No Culture/Gnosticist/Business Systems Analyst Cultural/Gnosticist Needs that may affect No Treatment Plan Would you allow our [facility] account assistant to No meet you for the purpose of spiritual/ emotional support? Business Systems Analyst to contact place of mandaen No Teaching: Wound Center *Welcome to the Wound Center -Person Taught Patient -Teaching Method Discussion -Response to teaching Verbalize understanding (a) 1 - + throughout - Nurse 1 - General Ulcer Measurement Start: 02/28/24 09:16 Freq: Status: Active Protocol: Activity Type Activity Date Activity User E-sign Co-sign Detail Recorded Client Recorded Date Recorded By Document 02/28/24 09:20 RB wound center 02/28/24 09:25 RB Document 03/13/24 10:14 RB wound 03/13/24 10:15 RB 02/28/24 03/13/24 09:20 10:14 Wound Center Nurse 1 Lower Limb Edema Present Yes Yes Right Calf (cm) 40 37 Right Ankle (cm) 21.5 22.8 Left Calf (cm) 35 35 Left Ankle (cm) 22 22.7 - Nurse 2 - General Ulcer CM Notes Start: 02/28/24 09:16 Freq: Status: Active Protocol: Activity Type Activity Date Activity User E-sign Co-sign Detail Recorded Client Recorded Date Recorded By Document 02/28/24 09:30 JF [id number] 02/28/24 09:31 JF 02/28/24 09:30 Pain Scale: 0-10 Numeric Is Patient Pain Free? Yes - Nurse 3 - General Ulcer D/C NN Start: 02/28/24 09:16 Freq: Status: Active Protocol: Activity Type Activity Date Activity User E-sign Co-sign Detail Recorded Client Recorded Date Recorded By Document 02/28/24 09:46 KW wound center 02/28/24 09:47 KW 02/28/24 09:46 Wound Care Center Nurse 3 Right -Tubular Bandage Double Layer -Size of Tubigrip Used Size F -Size F ($) 2 Left -Tubular Bandage Double Layer -Size of Tubigrip Used Size F -Size F ($) 2 Pain Scale: 0-10 Numeric Is Patient Pain Free? Yes WC - Visit Discharge Discharge Condition Stable Ambulatory Status Ambulatory, Walker Transportation Private Auto Medication Reconcilliation completed & No provided to patient/care provider Clinical Summary of Care Provided Yes Assessment/Plan Assessment/Plan (1) Lymphedema, not elsewhere classified: CODE(S): I89.0 - Lymphedema, not elsewhere classified PLAN: Exam performed Patient has bilateral lymphedema. Will plan for lymphedema pumps. Today swelling is improved with compression elevation and exercise. Patient has compression stockings at home has difficulty wearing. Will plan for compression and elevation exercise for edema management. At current we will plan for double Tubigrip to bilateral lower extremity. Patient follow-up weekly.
== END 2024-03-25 23:59 | disposition home or self-care (01) ==
LOC: WC 11:00
PROVIDERS: PCP Internal Medicine; Referring Provider Podiatrist; Visit Provider Podiatrist
DX: E11.59 Type 2 diabetes mellitus with other circulatory complications (principal); E11.40 Type 2 diabetes mellitus with diabetic neuropathy, unspecified; E11.22 Type 2 diabetes mellitus with diabetic chronic kidney disease; Z79.4 Long term (current) use of insulin; N18.30 Chronic kidney disease, stage 3 unspecified; I89.0 Lymphedema, not elsewhere classified; Z79.01 Long term (current) use of anticoagulants; R60.0 Localized edema; I12.9 Hypertensive chronic kidney disease with stage 1 through stage 4 chronic kidney disease, or unspecified chronic kidney disease; E78.00 Pure hypercholesterolemia, unspecified; Z86.16 Personal history of COVID-19; M79.7 Fibromyalgia; G47.33 Obstructive sleep apnea (adult) (pediatric); K21.9 Gastro-esophageal reflux disease without esophagitis; Z99.89 Dependence on other enabling machines and devices; Z86.73 Personal history of transient ischemic attack (TIA), and cerebral infarction without residual deficits; Z86.718 Personal history of other venous thrombosis and embolism
CPT/HCPCS: 93923; 99213; G0463

== ENCOUNTER 2024-03-17 19:42 | Inpatient (IN) | payer MEDICARE, SELFPAY ==
[2024-03-17] VITALS (8 sets, daily range): BP systolic 179–191; BP diastolic 111–124; PULSE 93–118; RESP 13–22; TEMP 36.6; O2SAT 95–97; BMI 43.4
--- NOTE | 2024-03-17 20:20 | EKG12_ITS ---
Test Reason : CP Blood Pressure : / mmHG Vent. Rate : 093 BPM Atrial Rate : 093 BPM P-R Int : 148 ms QRS Dur : 088 ms QT Int : 362 ms P-R-T Axes : 045 -35 036 degrees QTc Int : 450 ms Normal sinus rhythm Left axis deviation Moderate voltage criteria for LVH, may be normal variant ( R in aVL , [place] product ) Abnormal ECG Confirmed by Cem Rios ([id number]), market editor ALEXANDER HUNTER ([id number]) on 03/19/2024 9:41:16 AM Referred By: HANSEL Confirmed By:Cem Rios
--- NOTE | 2024-03-17 20:22 | EDS_ITS ---
HPI History of Present Illness Chief Complaint: Chest Pain Informant: patient Narrative Narrative: Patient is a 69-year-old female with history of gout, CKD 4, lower extremity edema, DVT (on Eliquis), stroke and headaches as well as fibromyalgia presenting with chest discomfort as well as left wrist pain. Patient states she has not been feeling good the past few days and woke up today with chest tightness. She feels slightly short of breath and she is concerned that maybe she has fluid in her lungs. She notes that she did have a fever today when her son checked her temperature but she does not recall what it was. She did take Tylenol before coming in. In addition when she woke up today she noticed that her left wrist and hand was swollen and hurting. She thinks maybe she is having a gout flare. Denies associated nausea vomiting or abdominal pain. Does have urinary frequency and notes a history of urinary tract infections. States has been compliant with her Eliquis. Denies any trauma or injury to her left arm/hand. PFSH [facility] Medical History UTI (urinary tract infection) Hypercalcemia Grief reaction Encounter for vitamin deficiency screening Diabetes Sleep apnea On home oxygen therapy Hypertension DVT (deep venous thrombosis) Stroke/cerebrovascular accident Elevated troponin Respiratory failure COVID-19 Flu vaccine need Anxiety and depression Essential hypertension Fibrosis of liver Polymyositis Hematuria Depression Anxiety Fatty liver Difficulty swallowing Obesity Bilateral lower extremity edema Myositis Chronic neck and back pain Limb weakness Difficulty balancing when standing Liver disease Shoulder pain Abnormal thyroid function test Fatigue Dizziness Loss of hearing Wears glasses Insulin dependent diabetes mellitus Arthritis History of renal disease Anemia Hx of phlebitis Restless legs Back pain Migraine headache Blackout Dietary restriction Non-smoker CPAP (continuous positive airway pressure) dependence Leg cramps History of pain when walking History of echocardiogram History of stress test Sinusitis Hyperlipidemia High cholesterol Diabetes Glaucoma Vitamin D deficiency Type 2 diabetes mellitus Sensorineural hearing loss of both ears Osteoporosis BENTLEY on CPAP Morbid obesity Macular degeneration Lyme disease Insomnia History of thyroid nodule Gout GERD (gastroesophageal reflux disease) Fibromyalgia CKD (chronic kidney disease), stage III Home Medications ?Medication ?Instructions ?Recorded ?Last Taken ?Type CPAP #1 ea 09/24/20 Unknown History blood pressure monitor (Blood #1 ea 09/24/20 Unknown History Pressure Kit) blood sugar diagnostic (Accu-Chek #10 ea 09/24/20 Unknown History Christi Plus test strips) blood-glucose meter #1 ea 09/24/20 Unknown History lancets (Accu-Chek Softclix #100 ea 09/24/20 Unknown History Lancets) latanoprost 0.005 % eye drops 1 drp ophthalmic (eye) QHS MACULAR 02/24/21 Unknown History DEGENRATION simethicone 80 mg chewable tablet 80 mg PO 4X/DAY PRN Flatulence #30 12/07/21 Unknown Rx tabs vitamin E 268 mg (400 unit) capsule 800 unit PO DAILY vitamin #60 caps 02/08/22 11/01/23 Rx Bilateral wrist splints #2 ea 06/07/22 Unknown Rx pen needle, diabetic 32 gauge x #200 ea 07/27/22 Unknown Rx 1/4 (Novofine 32) fluticasone propionate 50 2 spray intranasal DAILY PRN Nasal 09/06/22 Unknown History mcg/actuation nasal Congestion spray,suspension insulin lispro 100 unit/mL 12 unit subcut TID 02/28/23 10/31/23 History subcutaneous pen (Humalog KwikPen (U-100) Insulin) loratadine 10 mg tablet 10 mg PO DAILY allergies #90 tabs 08/23/23 11/01/23 Rx pregabalin 150 mg capsule 150 mg PO BID pain #180 caps 08/23/23 11/01/23 Rx rimegepant 75 mg disintegrating 75 mg PO DAILY PRN migraine 08/23/23 Unknown Rx tablet (Nurtec ODT) headache #8 tabs albuterol sulfate 90 mcg/actuation 1 - 2 puff inhalation Q4H PRN 11/01/23 09/19/23 History aerosol inhaler (Ventolin HFA) Wheezing apixaban 5 mg tablet (Eliquis) 5 mg PO BID BLOOD THINNER #180 tabs 11/16/23 Unknown Rx cholecalciferol (vitamin D3) 1,250 1,250 mcg PO LUCIO vitamin #14 caps 11/16/23 Unknown Rx mcg (50,000 unit) capsule linaclotide 145 mcg capsule 145 mcg PO DAILY BOWELS #90 caps 11/16/23 Unknown Rx (Linzess) omega-3 fatty acids 1,000 mg 1,000 mg PO DAILY #90 caps 11/16/23 Unknown Rx capsule metoprolol tartrate 25 mg tablet 12.5 mg (1/2 x 25 mg) PO BID #60 11/21/23 Unknown Rx tabs duloxetine 60 mg capsule,delayed See Rx Instructions .Route 12/23/23 Unknown Rx release .COMPLEX #180 caps ezetimibe 10 mg tablet (Zetia) 10 mg PO DAILY #60 tabs 12/23/23 Unknown Rx lorazepam 0.5 mg tablet 0.5 mg PO Q4 PRN anxiety 12/23/23 Unknown History ursodiol 250 mg tablet 250 mg PO BID gallstones #90 tabs 12/23/23 Unknown Rx allopurinol 200 mg tablet 200 mg PO DAILY #30 tabs 12/27/23 Unknown Rx pantoprazole 40 mg tablet,delayed 40 mg PO BID reflux #180 tabs 01/16/24 Unknown Rx release insulin degludec 100 unit/mL (3 45 unit subcut QHS 02/16/24 Unknown History mL) subcutaneous pen (Tresiba FlexTouch U-100 insulin) Allergy/AdvReac Type Severity Reaction Status Date / Time saliva substitute Allergy Severe Angioedema Verified 03/17/24 19:45 combination no.9 (From [facility]) gemfibrozil AdvReac Severe Myalgia Verified 03/17/24 19:45 [id number] Reductase AdvReac Severe muscle pain Verified 03/17/24 19:45 Inhibitor Family History Brother Diabetes Mother Diabetes Heart disease Hypertension Grandmother Diabetes Sister Diabetes Heart disease Hypertension Thyroid disorder Father Kidney disease Grandfather Kidney disease Surgical History History of esophagogastroduodenoscopy (EGD) Hx of colonoscopy History of bilateral knee arthroplasty H/O: hysterectomy History of cholecystectomy Social History Smoking Status: Never smoker second hand exposure: No alcohol intake: never substance use type: does not use yessenia/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: [employer] seatbelt use: always ROS ROS ED Constitutional Constitutional ED: Reports chills and fever(s) ENT ENT ED: Denies sore throat Cardiovascular Cardiovascular: Reports as per HPI and chest pain; Denies palpitations Respiratory/Chest Respiratory/Chest: Reports cough; Denies dyspnea or sputum Gastrointestinal Gastrointestinal: Denies abdominal pain, nausea or vomiting Genitourinary Genitourinary ED: Reports dysuria and urinary frequency Musculoskeletal Musculoskeletal: Reports myalgias and other Details: Left wrist and hand pain Integumentary Denies Abrasions or rash Neurologic Neurologic: Reports headache(s) and other Details: Reports daily headaches since her stroke in September 2023 ; Denies paresthesias or weakness Psychiatric Psychiatric: Reports anxiety Hematologic/Lymphatic Hematologic/Lymphatic: Reports easy bleeding and other Details: On Eliquis EXAM Physical Exam Const Vital Signs: 03/17/24 19:45 03/17/24 19:51 03/17/24 20:15 Temperature 97.9 F Temperature Source Temporal Pulse Rate 94 Respiratory Rate 20 H Respiratory Effort Normal Non-Labored Blood Pressure 188/120 H 191/113 H Blood Pressure Mean 142 137 Pulse Ox 96 Oxygen Delivery Method Room Air 03/17/24 20:45 03/17/24 21:00 03/17/24 21:15 Temperature Temperature Source Pulse Rate 95 93 118 H Respiratory Rate 20 H 13 22 H Respiratory Effort Blood Pressure Blood Pressure Mean Pulse Ox 97 96 Oxygen Delivery Method 03/17/24 22:00 03/17/24 23:00 03/18/24 00:00 Temperature Temperature Source Pulse Rate 100 99 100 Respiratory Rate 14 20 H Respiratory Effort Blood Pressure 179/111 H 182/124 H Blood Pressure Mean 125 143 Pulse Ox 97 96 Oxygen Delivery Method Room Air Room Air 03/18/24 00:18 Temperature 97 F L Temperature Source Pulse Rate 99 Respiratory Rate 21 H Respiratory Effort Blood Pressure 174/103 H Blood Pressure Mean 126 Pulse Ox 94 Oxygen Delivery Method Positive well nourished and well developed General Appearance ED: well developed and NAD HEENT Reports moist mucous membranes normocephalic and atraumatic Eyes PERRL Neck supple and no JVD Chest Wall inspection of chest normal Resp normal respiratory effort Resp Narrative: Fine crackles appreciated at the right lung base Effort and Inspection: Negative for respiratory distress Auscultation: Negative for diminished lung sounds Cardio regular rate and regular rhythm Peripheral Pulses: radial pulses present and posterior tibial pulses present GI normal to inspection, nondistended, normoactive bowel sounds and soft to palpation Extremity Extremity Narrative: No significant peripheral edema of the lower extremities. On the left upper extremity patient has swelling and warmth localized around her left wrist. She has pain with range of motion of the left wrist as well as range of motion of the third through fifth fingers at the MCPs. There is some subtle edema of the hands noted as well. No obvious deformity. Normal range of motion of the elbow and proximal forearm. General Extremety ED: Negative for edema General Extremity: Negative for edema Neuro oriented x3 Sensorium / Orientation: awake and alert Psych mental status grossly normal Skin no rashes or lesions noted Skin Narrative: There is subtle petechia noted to the dorsal aspect of the left hand diffusely MDM MDM MDM Narrative Medical decision making narrative: Patient is evaluated for worsening cough, fever today and heaviness in her chest. In addition she complained of some left hand/arm pain with a history of gout. While in the ER she does start to complain of more of a headache as well. She did have any focal neurologic deficits and states she gets daily headaches since her stroke. She normally takes Nurtec at home. Workup looking for cardiopulmonary cause of her symptoms is performed including infectious etiology. Patient has a normal white blood cell count and is afebrile in the emergency room however she states she did take Tylenol prior to coming in. Her vital signs are significant for borderline tachycardia and hypertension. She is not requiring supplemental oxygen but does dip to 94% in the emergency room. CMP largely normal with a mild elevation of creatinine of 1.05 however this is her baseline. High sensitive troponin is normal at 17 and her BNP is also normal at 50. Urinalysis is not consistent with infection. 2 view chest x-ray viewed by myself as well as radiology is concerning for right lower lobe infiltrate. This matches her clinical exam and HPI. 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 This reviewed by myself as well as radiology. Patient is initially given Reglan, IV fluids and then Toradol for her headache. On repeat evaluation overall she is feeling better. We attempted to ambulate the patient for pulse ox however she could not take more than a few steps before feeling that her legs were weak and she had too much pain in the bottom of her feet. Patient lives home with her disabled son. She does not feel comfortable going home tonight. Will admit for IV antibiotics and evaluation for weakness. I do think patient would at least benefit from some home health and likely case management consult. Case discussed with admitting physician, Dr. Pringle. Patient is given first dose of antibiotics in the emergency room (Rocephin and azithromycin). She is also given 10 mg IV labetalol as she is mildly tachycardic and hypertensive but did not take her evening metoprolol. History & Record Review Additional record(s) reviewed:: Prior labs Lab Data Attestation: I reviewed the patient's lab results. Labs: Laboratory Results - last 24 hr 03/17/24 03/17/24 20:25 21:26 WBC 10.3 RBC 5.09 Hgb 13.5 Hct 43.7 MCV 85.9 MCH 26.5 L MCHC 30.9 L RDW Std Deviation 49.2 H RDW Coeff of Paulo 15.6 H Plt Count 238 MPV 11.8 Immature Gran % (Auto) 0.300 Neut % (Auto) 73.4 H Lymph % (Auto) 15.8 L [place] % (Auto) 7.4 Eos % (Auto) 2.7 Baso % (Auto) 0.4 Absolute Neuts (auto) 7.6 Absolute Lymphs (auto) 1.62 Nucleated RBC % 0 Sodium 136 Potassium 3.9 Chloride 104 Carbon Dioxide 27.0 Anion Gap 5 BUN 18 Creatinine 1.05 H Estim Creat Clear Calc 56.23 Est GFR (MDRD) Af Amer 67 Est GFR (MDRD) Non-Af 55 L BUN/Creatinine Ratio 17.1 Glucose 106 Calcium 10.0 Total Bilirubin 0.70 AST 29 ALT 19 Alkaline Phosphatase 199 H Troponin I High Sens 17 B-Natriuretic Peptide 50.1 Total Protein 7.1 Albumin 3.1 L Globulin 4.0 Albumin/Globulin Ratio 0.8 L Urine Color Yellow Urine Clarity Clear Urine pH 7.0 Ur Specific [place] 1.015 Urine Protein 500 H Urine Glucose (UA) Normal Urine Ketones Negative Urine Occult Blood 25 H Urine Nitrite Negative Urine Bilirubin Negative Urine Urobilinogen Normal Ur Leukocyte Esterase 25 H Urine RBC 0-5 SEEN Urine WBC 0-5 SEEN Ur Squamous Epith Cells 0-5 SEEN Amorphous Sediment 1+ PHOS Urine Bacteria 0 SEEN Urine Mucus 0 SEEN Radiography Chest X-Ray - ED: 2 View, Read by ED Physician, Read by Radiologist and Right Infiltrate Diagnostic Testing: Clinical Impression(s) from Imaging Studies Chest X-Ray 03/17/24 20:45 IMPRESSION: Concern for posterior right lower lobe pneumonia. Correlate with exam. CT could further evaluate as clinically indicated.. Otherwise radiographic follow-up recommended in 6 weeks after treatment to ensure resolution. Electronically Signed: Lebron Dill MD at 22:02 EDT Reading Location ID and State: [facility] / [place] Tel , Service support , Hand X-Ray 03/17/24 20:45 IMPRESSION: Distal forearm and hand edema. No acute osseous finding.. Osteopenia and first carpometacarpal joint osteoarthritis Electronically Signed: Lebron Dill MD at 21:58 EDT Reading Location ID and State: [facility] / [place] Tel , Service support , Wrist X-Ray 03/17/24 20:45 IMPRESSION: No evidence of acute injury. Severe osteoarthritis along the first carpometacarpal joint.. Electronically Signed: Lebron Dill MD at 21:51 EDT Reading Location ID and State: [facility] / [place] Tel , Service support , Rhythm Strip Rhythm Strip: Sinus Rhythm Rate: 93 Ectopy: None EKG Initial EKG: Attestation: I personally reviewed and interpreted this EKG as follows: Interpretation: Sinus Rhythm Comments: Normal sinus rhythm at a rate of 93 bpm Left axis deviation Moderate voltage criteria for LVH Normal ST segments Differential Diagnosis Chest pain/SOB: pulmonary embolism Reason(s) PE less likely: Positive for not hypoxic and patient taking oral anticoagulants Management Discussion w/another healthcare provider: Hospitalist Discharge Plan Triage Chief Complaint: Chest Pain ED Provider: Tennille Farrar Dx/Rx/DC Orders Clinical Impression: Right lower lobe pneumonia, Difficulty in walking, Swelling of left hand, History of gout Prescriptions: No Action (DME) lancets [Accu-Chek Softclix Lancets] Misc See Rx Instructions .ROUTE .MEDSUPPLY Qty: 100 Rx Instructions: As directed, Test 4 times daily before meals and at bedtime (DME) Accu-Chek Christi Plus test strp Strip See Rx Instructions .ROUTE .MEDSUPPLY Qty: 10 Rx Instructions: As directed; Test 4 times daily before meals and at bedtime (DME) CPAP See Rx Instructions .Route .MEDSUPPLY Qty: 1 Rx Instructions: 14 cm H2O (DME) blood-glucose meter Misc See Rx Instructions .ROUTE .MEDSUPPLY Qty: 1 Rx Instructions: As directed (DME) blood pressure monitor [Blood Pressure Kit] Kit See Rx Instructions .ROUTE .MEDSUPPLY Qty: 1 Rx Instructions: As directed latanoprost 0.005 % drops 1 drp ophthalmic (eye) QHS vitamin E 400 unit capsule 800 unit PO DAILY Qty: 60 5RF (DME) pen needle, diabetic [Novofine 32] 32 gauge x 1/4 needle See Rx Instructions .ROUTE .MEDSUPPLY Qty: 200 6RF Rx Instructions: As directed; 4x/day (DME) Bilateral wrist splints See Rx Instructions .Route .MEDSUPPLY Qty: 2 0RF Rx Instructions: As directed insulin lispro [Humalog KwikPen Insulin] 100 unit/mL insulin pen 12 unit subcut TID Patient Comments: PT STATES SHE ONLY TAKES 12 UNITS IF HER BS IS 150+. DOES NOT DO SLIDING SCALE Rx Instructions: 12u with meals, 6u with snacks. +SSI 180-210+2; 211-240+3; 241-300+5; >300 +7 MDD 50 loratadine 10 mg tablet 10 mg PO DAILY Qty: 90 1RF Nurtec ODT 75 mg tablet,disintegrating 75 mg PO DAILY PRN (Reason: migraine headache) Qty: 8 5RF pregabalin 150 mg capsule 150 mg PO BID Qty: 180 1RF Linzess 145 mcg capsule 145 mcg PO DAILY Qty: 90 0RF Rx Instructions: TAKE 1 CAPSULE BY MOUTH IN THE MORNING omega-3 fatty acids 1,000 mg capsule 1,000 mg PO DAILY Qty: 90 0RF Eliquis 5 mg tablet 5 mg PO BID Qty: 180 1RF cholecalciferol (vitamin D3) 1,250 mcg (50,000 unit) capsule 1,250 mcg PO LUCIO Qty: 14 1RF lorazepam 0.5 mg tablet 0.5 mg PO Q4 PRN (Reason: anxiety) duloxetine 60 mg capsule,delayed release(DR/EC) See Rx Instructions .ROUTE .COMPLEX Qty: 180 1RF Dose Instruction: TAKE 2 CAPSULES BY MOUTH DAILY Rx Instructions: TAKE 2 CAPSULES BY MOUTH DAILY ursodiol 250 mg tablet 250 mg PO BID Qty: 90 1RF ezetimibe [Zetia] 10 mg tablet 10 mg PO DAILY Qty: 60 2RF fluticasone propionate 50 mcg/actuation spray,suspension 2 spray INTRANASAL DAILY PRN (Reason: Nasal Congestion) Rx Instructions: administer into each nostril albuterol sulfate [Ventolin HFA] 90 mcg/actuation HFA aerosol inhaler 1 - 2 puff inhalation Q4H PRN (Reason: Wheezing) insulin degludec [Tresiba FlexTouch U-100] 100 unit/mL (3 mL) insulin pen 45 unit SC QHS simethicone 80 mg tablet,chewable 80 mg PO 4X/DAY PRN (Reason: Flatulence) Qty: 30 1RF metoprolol tartrate 25 mg tablet 12.5 mg PO BID Qty: 60 1RF allopurinol 200 mg tablet 200 mg PO DAILY Qty: 30 0RF pantoprazole 40 mg tablet,delayed release (DR/EC) 40 mg PO BID Qty: 180 1RF Primary Care Provider: Vamsi Epperson Referrals: Vamsi Epperson MD [Primary Care Provider] - Print Language: German Disposition Disposition: Acute Care Hospital [facility]
[2024-03-17] MEDS: Metoclopramide 10 MG/2 ML Vial 5 MG IV (20:30)
[2024-03-17 20:31] LABS: Absolute Lymphocyte Count 1.62 X10^3/uL (0.83-4.51); Absolute Neutrophil Count 7.6 X10^3/uL (2.0-7.7); Basophil# 0.04 X10^3/uL; Basophil% 0.4 % (0-1); Eosinophil# 0.28 X10^3/uL; Eosinophils% 2.7 % (0-5); Hematocrit 43.7 % (37-47); Hemoglobin 13.5 g/dL (12.0-15.0); Lymphocyte # 1.62 X10^3/ul (0.83-4.51); Lymphocyte % 15.8 % (19-41); Mean Corp Hgb Conc 30.9 g/dL (32-36); Mean Corpuscular Hgb 26.5 pg (27.0-32.0); Mean Corpuscular Volume 85.9 fL (81-99); Mean Platelet Vol. 11.8 fl (6.2-12.0); Monocyte# 0.76 X10^3/uL; Monocyte% 7.4 % (0-10); NRBC Flagged by Analyzer 0 % (0-5); Neutrophil # 7.55 X10^3/uL (2.7-7.7); Neutrophil % 73.4 % (47-70); Platelet Count 238 K/mm3 (150-450); RBC Distribution Width CV 15.6 % (11.6-14.6); RBC Distribution Width SD 49.2 fl (35.1-43.9); Red Blood Count 5.09 M/mm3 (4.2-5.4); White Blood Count 10.3 K/mm3 (4.4-11.0)
--- NOTE | 2024-03-17 20:45 | RAD_ITS ---
INDICATION: sob, chest pain EXAMINATION/TECHNIQUE: X-RAY - XR Chest 2 Views COMPARISON: CT September 20, 2023. FINDINGS: LINES/DEVICES: None. LUNGS: Small patchy retrocardiac retrodiaphragmatic opacities on lateral view, favor right-sided. Additional lateral left lower lobe atelectasis. No florid edema or effusion. No pneumothorax. MEDIASTINUM AND CARDIOVASCULAR STRUCTURES: Cardiac silhouette not enlarged. BONES AND SOFT TISSUES: Unremarkable. RAD/Chest PA and Lateral IMPRESSION: Concern for posterior right lower lobe pneumonia. Correlate with exam. CT could further evaluate as clinically indicated.. Otherwise radiographic follow-up recommended in 6 weeks after treatment to ensure resolution. Electronically Signed: Lebron Dill MD at 22:02 EDT ,
--- NOTE | 2024-03-17 20:45 | RAD_ITS ---
INDICATION: Injury/Pain EXAMINATION/TECHNIQUE: X-RAY - LEFT XR Hand Min 3 Views 3 VIEWS COMPARISON: Wrist radiograph on same day FINDINGS: SOFT TISSUES: Distal forearm and hand edema. No radiopaque foreign body. BONES/JOINTS: No acute fracture or subluxation.. Normal alignment. Severe first metacarpal phalangeal joint osteoarthritis... No aggressive osseous lesion. Osteopenia RAD/Hand Min 3 Views IMPRESSION: Distal forearm and hand edema. No acute osseous finding.. Osteopenia and first carpometacarpal joint osteoarthritis Electronically Signed: Lebron Dill MD at 21:58 EDT ,
--- NOTE | 2024-03-17 20:45 | RAD_ITS ---
INDICATION: Injury/Pain EXAMINATION/TECHNIQUE: X-RAY - LEFT XR Wrist Min 3 Views 3 VIEWS COMPARISON: Hand radiograph on same day FINDINGS: SOFT TISSUES: Trace mineralization along the triangular fibrocartilage complex and lunotriquetral ligament. No soft tissue swelling or gas. No radiopaque foreign body. BONES/JOINTS: Severe first carpal metacarpal joint osteoarthritis.. Normal alignment. .. No sclerotic or destructive changes observed. RAD/Wrist min 3 Views IMPRESSION: No evidence of acute injury. Severe osteoarthritis along the first carpometacarpal joint.. Electronically Signed: Lebron Dill MD at 21:51 EDT ,
[2024-03-17 20:53] LABS: ALB/GLOB Ratio 0.8 RATIO (0.9-2.4); AST(SGOT) 29 U/L (15-37); Alanine Aminotransfer ALT/SGPT 19 U/L (13-56); Albumin, Serum 3.1 g/dL (3.2-5.0); Alkaline Phosphatase 199 U/L (45-117); Anion Gap 5 (5-15); BNP,B-Type NATRIURETIC PEPTIDE 50.1 pg/mL (0-100); BUN 18 mg/dL (7-18); BUN/Creat Ratio 17.1 RATIO (10-20); Chloride 104 mmol/L (98-107); Creatinine, Serum 1.05 mg/dL (0.55-1.02); EST Glomerular Filtration Rate 55 mL/min (>60); Est Glom Filt Rate - Afr Amer 67 mL/min (>60); Estimated Creatinine Clearance 56.23 ml/min; Glucose 106 mg/dL (74-106); Potassium 3.9 mmol/L (3.5-5.1); Protein, Total 7.1 g/dL (6.4-8.2); Sodium Level 136 mmol/L (136-145); Troponin-I HS 17 pg/mL (3.0-54.0)
[2024-03-17 21:44] LABS: Bacteria 0 SEEN /hpf (None Seen); Mucous, Urine 0 SEEN /hpf (<or=2+)
[2024-03-17 21:54] LABS: Color, Urine Yellow (Yellow); Glucose, Dipstick Normal (Normal); Ketone-Dipstick Negative (Negative); Leukocyte Esterase-Dipstick 25 /ul (Negative); Nitrite-Dipstick Negative (Negative); Occult Blood-Urine 25 /ul (Negative); Protein-Dipstick 500 mg/dl (Negative); Specific Gravity, Urine 1.015 (1.002-1.030); Urine Bilirubin Dipstick Negative (Negative); Urine Clarity Clear (Clear); Urine Urobilinogen Normal (Normal)
[2024-03-17 22:43] LABS: Amorphous Sediment 1+ PHOS; Red Blood Cells-Urine 0-5 SEEN /hpf (0-5); Squamous Epithelial Cells - UA 0-5 SEEN /hpf (5-10); White Blood Cells 0-5 SEEN /hpf (0-5)
[2024-03-17] MEDS: Ketorolac 15 MG/ML Vial IV (22:52)
--- NOTE | 2024-03-17 23:57 | PCM.HP.STD ---
[facility] - General General Date of Admission: 03/18/24 Date of Service: 03/17/24 Chief Complaint: Fever, Cough, SOB and Generalized Weakness. HPI Narrative YVES NIÑO, is a 69 F with a past medical history of essential hypertension, hyperlipidemia; on ezetimibe, morbid obesity; with BMI of 43.5 this admission, BENTLEY; on CPAP, history of NAFLD; with hepatosplenomegaly, history of pulmonary fibrosis, DM-2; of unknown control, diabetic neuropathy, history of DVT/PE; on Eliquis, history of CVA (September 2023), migraine headaches; on as needed Nurtec ODT, history of CKD; stage III-IV, macular degeneration, history of polymyositis, depression with anxiety, fibromyalgia, history of UTI, history of cellulitis, history of Lyme disease, GERD; with history of Jasso's esophagus, history of gastric atrophy, chronic constipation, history of cholecystectomy, history of hysterectomy, osteoporosis, history of bilateral CTS, gout and OA; with history of bilateral total knee arthroplasty and chronic back pain who lives at home with her disabled son who presents to [facility] ER complaining of fever, cough, shortness of breath and generalized weakness. Ms. Niño reports her symptoms began approximately 2 to 3 days prior to admission with a gradual onset of dyspnea on exertion with nonproductive cough. Then she woke up on the morning of March 17, 2024 with a sensation of tightness in her chest and she became concerned that she may have fluid in her lungs with subjective fever and chills. She also complains of Left wrist pain and swelling but denies any history of trauma or recent overuse which she suspects is due to an acute flare of her gout. She states she has been taking her Eliquis and other medications as prescribed. She denies associated nausea, vomiting, abdominal pain, diarrhea or constipation but she is not sure if she had a fever she did take Tylenol prior to coming to the ER. In the ER she was noted to have x-ray evidence of Right lower lobe infiltrate consistent with suspected community-acquired pneumonia complicated by clinical evidence of respiratory insufficiency and generalized weakness with ambulatory dysfunction compounded by suspected gout flare in the Left wrist with corresponding hyperuricemia of 7.5 mg/dL present on admission and she was then admitted to the general medical floor for ongoing care for stay that is suspected to extend beyond 2 midnights. [facility] Medical History UTI (urinary tract infection) Hypercalcemia Grief reaction Encounter for vitamin deficiency screening Diabetes Sleep apnea On home oxygen therapy Hypertension DVT (deep venous thrombosis) Stroke/cerebrovascular accident Elevated troponin Respiratory failure COVID-19 Flu vaccine need Anxiety and depression Essential hypertension Fibrosis of liver Polymyositis Hematuria Depression Anxiety Fatty liver Difficulty swallowing Obesity Bilateral lower extremity edema Myositis Chronic neck and back pain Limb weakness Difficulty balancing when standing Liver disease Shoulder pain Abnormal thyroid function test Fatigue Dizziness Loss of hearing Wears glasses Insulin dependent diabetes mellitus Arthritis History of renal disease Anemia Hx of phlebitis Restless legs Back pain Migraine headache Blackout Dietary restriction Non-smoker CPAP (continuous positive airway pressure) dependence Leg cramps History of pain when walking History of echocardiogram History of stress test Sinusitis Hyperlipidemia High cholesterol Diabetes Glaucoma Vitamin D deficiency Type 2 diabetes mellitus Sensorineural hearing loss of both ears Osteoporosis BENTLEY on CPAP Morbid obesity Macular degeneration Lyme disease Insomnia History of thyroid nodule Gout GERD (gastroesophageal reflux disease) Fibromyalgia CKD (chronic kidney disease), stage III Home Medications ?Medication ?Instructions ?Recorded ?Last Taken ?Type CPAP #1 ea 09/24/20 Unknown History blood pressure monitor (Blood #1 ea 09/24/20 Unknown History Pressure Kit) blood sugar diagnostic (Accu-Chek #10 ea 09/24/20 Unknown History Christi Plus test strips) blood-glucose meter #1 ea 09/24/20 Unknown History lancets (Accu-Chek Softclix #100 ea 09/24/20 Unknown History Lancets) latanoprost 0.005 % eye drops 1 drp ophthalmic (eye) QHS MACULAR 02/24/21 Unknown History DEGENRATION simethicone 80 mg chewable tablet 80 mg PO 4X/DAY PRN Flatulence #30 12/07/21 Unknown Rx tabs vitamin E 268 mg (400 unit) capsule 800 unit PO DAILY vitamin #60 caps 02/08/22 11/01/23 Rx Bilateral wrist splints #2 ea 06/07/22 Unknown Rx pen needle, diabetic 32 gauge x #200 ea 07/27/22 Unknown Rx 1/4 (Novofine 32) fluticasone propionate 50 2 spray intranasal DAILY PRN Nasal 09/06/22 Unknown History mcg/actuation nasal Congestion spray,suspension insulin lispro 100 unit/mL 12 unit subcut TID 02/28/23 10/31/23 History subcutaneous pen (Humalog KwikPen (U-100) Insulin) loratadine 10 mg tablet 10 mg PO DAILY allergies #90 tabs 08/23/23 11/01/23 Rx pregabalin 150 mg capsule 150 mg PO BID pain #180 caps 08/23/23 11/01/23 Rx rimegepant 75 mg disintegrating 75 mg PO DAILY PRN migraine 08/23/23 Unknown Rx tablet (Nurtec ODT) headache #8 tabs albuterol sulfate 90 mcg/actuation 1 - 2 puff inhalation Q4H PRN 11/01/23 09/19/23 History aerosol inhaler (Ventolin HFA) Wheezing apixaban 5 mg tablet (Eliquis) 5 mg PO BID BLOOD THINNER #180 tabs 11/16/23 Unknown Rx cholecalciferol (vitamin D3) 1,250 1,250 mcg PO LUCIO vitamin #14 caps 11/16/23 Unknown Rx mcg (50,000 unit) capsule linaclotide 145 mcg capsule 145 mcg PO DAILY BOWELS #90 caps 11/16/23 Unknown Rx (Linzess) omega-3 fatty acids 1,000 mg 1,000 mg PO DAILY #90 caps 11/16/23 Unknown Rx capsule metoprolol tartrate 25 mg tablet 12.5 mg (1/2 x 25 mg) PO BID #60 11/21/23 Unknown Rx tabs duloxetine 60 mg capsule,delayed See Rx Instructions .Route 12/23/23 Unknown Rx release .COMPLEX #180 caps ezetimibe 10 mg tablet (Zetia) 10 mg PO DAILY #60 tabs 12/23/23 Unknown Rx lorazepam 0.5 mg tablet 0.5 mg PO Q4 PRN anxiety 12/23/23 Unknown History ursodiol 250 mg tablet 250 mg PO BID gallstones #90 tabs 12/23/23 Unknown Rx allopurinol 200 mg tablet 200 mg PO DAILY #30 tabs 12/27/23 Unknown Rx pantoprazole 40 mg tablet,delayed 40 mg PO BID reflux #180 tabs 01/16/24 Unknown Rx release insulin degludec 100 unit/mL (3 45 unit subcut QHS 02/16/24 Unknown History mL) subcutaneous pen (Tresiba FlexTouch U-100 insulin) Allergy/AdvReac Type Severity Reaction Status Date / Time saliva substitute Allergy Severe Angioedema Verified 03/17/24 19:45 combination no.9 (From Tapru BANNER) gemfibrozil AdvReac Severe Myalgia Verified 03/17/24 19:45 [id number] Reductase AdvReac Severe muscle pain Verified 03/17/24 19:45 Inhibitor Family History Brother Diabetes Mother Diabetes Heart disease Hypertension Grandmother Diabetes Sister Diabetes Heart disease Hypertension Thyroid disorder Father Kidney disease Grandfather Kidney disease Surgical History History of esophagogastroduodenoscopy (EGD) Hx of colonoscopy History of bilateral knee arthroplasty H/O: hysterectomy History of cholecystectomy Social History Smoking Status: Never smoker second hand exposure: No alcohol intake: never substance use type: does not use yessenia/shinto: Anabaptist seatbelt use: always ROS ROS Narrative Review of systems: General: Patient reports fever and chills as per HPI. HENT: Denies headache, denies stuffy nose, denies sore throat EYES: Denies changes in vision or discharge from eyes. Resp: Patient admits to shortness of breath and nonproductive cough. Cardiac: Patient admits to pleuritic type chest pain but she denies palpitations or heart racing. GI: Denies abdominal pain, denies changes in bowel, denies nausea or vomiting. : Denies changes in urination Extremity: Denies swelling Musculoskeletal: Feels somewhat generally weak and unwell with myalgias but arthralgias from the Left wrist. Neuro: Patient admits to headache that is better after Toradol in the ER. She denies associated paresthesias or focal neurologic deficits. Heme: Denies any bleeding or bruising Skin: Denies rashes Psychiatric: No complaints voiced related uncontrolled depression or anxiety. Endocrine: No polyuria, polydipsia or polyphagia. The rest of the 14 point ROS was negative except for positives in HPI. Vital Signs Vital Signs Vital Signs: 03/17/24 19:45 03/17/24 19:51 03/17/24 20:15 Temperature 97.9 F Temperature Source Temporal Pulse Rate 94 Respiratory Rate 20 H Respiratory Effort Normal Non-Labored Blood Pressure 188/120 H 191/113 H Blood Pressure Mean 142 137 Pulse Ox 96 Oxygen Delivery Method Room Air 03/17/24 20:45 03/17/24 21:00 03/17/24 21:15 Temperature Temperature Source Pulse Rate 95 93 118 H Respiratory Rate 20 H 13 22 H Respiratory Effort Blood Pressure Blood Pressure Mean Pulse Ox 97 96 Oxygen Delivery Method 03/17/24 22:00 03/17/24 23:00 Temperature Temperature Source Pulse Rate 100 99 Respiratory Rate 14 20 H Respiratory Effort Blood Pressure 179/111 H 182/124 H Blood Pressure Mean 125 143 Pulse Ox 97 96 Oxygen Delivery Method Room Air Room Air Weight Weight: 230 lb 2.601 oz Body Mass Index (BMI) 43.4 Physical Exam Const alert and oriented x3 Constitutional Narrative: Mild distress noted with patient appearing acutely ill in setting of morbid obesity. General Appearance: cooperative HEENT normocephalic, head/scalp atraumatic and hearing grossly normal bilaterally HEENT Narrative: Mucous membranes dry. Eyes PERRL and EOMs intact bilaterally Neck no lymphadenopathy and supple Resp Resp Narrative: Diminished breath sounds at Right base with crackles. Auscultation: crackles Cardio regular rate and regular rhythm GI normal to inspection, nondistended, normoactive bowel sounds, soft to palpation, non-tender and non-distended GI Narrative: Morbidly obese. Extremity normal to inspection and full ROM Skin Skin Narrative: Patient has no evidence of jaundice, rash or abscess. Neuro oriented x3, CN's II-XII intact bilaterally, moves all extremities and no focal motor deficits Sensorium / Orientation: awake, alert, oriented to person, oriented to place and oriented to time Speech: speech normal Psych affect normal Results Medical Records Data Attestation: I reviewed the patient's medical records Lab / Micro Data Attestation: I reviewed the patient's lab results. 03/17/24 20:25 03/17/24 20:25 Labs: Laboratory Results - last 24 hr 03/17/24 20:25: WBC 10.3, RBC 5.09, Hgb 13.5, Hct 43.7, MCV 85.9, MCH 26.5 L, MCHC 30.9 L, RDW Std Deviation 49.2 H, RDW Coeff of Paulo 15.6 H, Plt Count 238, MPV 11.8, Immature Gran % (Auto) 0.300, Neut % (Auto) 73.4 H, Lymph % (Auto) 15.8 L, [place] % (Auto) 7.4, Eos % (Auto) 2.7, Baso % (Auto) 0.4, Absolute Neuts (auto) 7.6, Absolute Lymphs (auto) 1.62, Nucleated RBC % 0, Sodium 136, Potassium 3.9, Chloride 104, Carbon Dioxide 27.0, Anion Gap 5, BUN 18, Creatinine 1.05 H, Estim Creat Clear Calc 56.23, Est GFR (MDRD) Af Amer 67, Est GFR (MDRD) Non-Af 55 L, BUN/Creatinine Ratio 17.1, Glucose 106, Calcium 10.0, Total Bilirubin 0.70, AST 29, ALT 19, Alkaline Phosphatase 199 H, Troponin I High Sens 17, B-Natriuretic Peptide 50.1, Total Protein 7.1, Albumin 3.1 L, Globulin 4.0, Albumin/Globulin Ratio 0.8 L 03/17/24 21:26: Urine Color Yellow, Urine Clarity Clear, Urine pH 7.0, Ur Specific [place] 1.015, Urine Protein 500 H, Urine Glucose (UA) Normal, Urine Ketones Negative, Urine Occult Blood 25 H, Urine Nitrite Negative, Urine Bilirubin Negative, Urine Urobilinogen Normal, Ur Leukocyte Esterase 25 H, Urine RBC 0-5 SEEN, Urine WBC 0-5 SEEN, Ur Squamous Epith Cells 0-5 SEEN, Amorphous Sediment 1+ PHOS, Urine Bacteria 0 SEEN, Urine Mucus 0 SEEN Micro: Microbiology 03/17/24 20:25 Mucosa - Nasopharyngeal Coronavirus COVID-19 PCR - Final Imaging Radiology Impression Chest X-Ray 03/17/24 20:45 IMPRESSION: Concern for posterior right lower lobe pneumonia. Correlate with exam. CT could further evaluate as clinically indicated.. Otherwise radiographic follow-up recommended in 6 weeks after treatment to ensure resolution. Electronically Signed: Lebron Dill MD at 22:02 EDT , Hand X-Ray 03/17/24 20:45 IMPRESSION: Distal forearm and hand edema. No acute osseous finding.. Osteopenia and first carpometacarpal joint osteoarthritis Electronically Signed: Lebron Dill MD at 21:58 EDT , Wrist X-Ray 03/17/24 20:45 IMPRESSION: No evidence of acute injury. Severe osteoarthritis along the first carpometacarpal joint.. Electronically Signed: Lebron Dill MD at 21:51 EDT , Assessment & Plan Assessment/Plan (1) Right lower lobe pneumonia: QUALIFIERS: Pneumonia type: due to unspecified organism Qualified Code(s): J18.9 - Pneumonia, unspecified organism (2) Respiratory insufficiency: (3) Pulmonary fibrosis: (4) Morbid obesity with BMI of 40.0-44.9, adult: (5) Obstructive sleep apnea: (6) Generalized weakness: (7) Ambulatory dysfunction: (8) Gout flare: QUALIFIERS: Gout etiology: unspecified cause Gout site: wrist Laterality: left Qualified Code(s): M10.9 - Gout, unspecified (9) Hyperuricemia: PLAN: Plan 1. Right lower lobe infiltrate consistent with suspected community-acquired pneumonia in the setting of previously known pulmonary fibrosis - Admit to general medical floor. Continue broad-spectrum antibiotics with IV Rocephin and IV azithromycin began in the ER and await culture and sensitivity data. Check urinary antigens to Legionella and Streptococcus pneumonia. Give scheduled Mucinex 1200 mg p.o. twice daily. Give nebulizers as needed. Give Tylenol as needed [id number] (level 1-5 out of 10) pain or fever. Give [place] as needed for severe (level 6-10 out of 10) pain. 2. Acute respiratory insufficiency due to #1 - Wean supplemental oxygen as tolerated. 3. Generalized weakness with ambulatory dysfunction arising from #1 & #2 in the setting of previously known OA; with history of bilateral total knee arthroplasty and chronic back pain - PT/OT and case management consult and treat on rounds in the a.m. for further recommendations with help appreciated in advance. 4. Severe atraumatic Left wrist pain and swelling due to suspected gout flare with corresponding hyperuricemia of 7.5 mg/dL present on admission complicating #1 - #3 - Start prednisone taper plus scheduled colchicine and monitor for improvement. 5. Morbid obesity; with a BMI of 43.5 this admission plus obstructive sleep apnea adding to the pathology of #1 - #4 - Weight loss will be recommended. Resume nocturnal CPAP as previous. This complicates her case and may hamper recovery. 6. Essential hypertension - Continue home medications as previous plus give as needed IV hydralazine for systolic blood pressure greater than 160 mmHg. 7. Hyperlipidemia; on ezetimibe - Resume ezetimibe. 8. History of NAFLD; with hepatosplenomegaly - Noted. 9. DM-2; of unknown control with diabetic neuropathy - ADA diet. FSBS AC/HS plus SSI. Check hemoglobin A1c to objectively evaluate quality of diabetic control. Resume gabapentin as previous. 10. History of DVT/PE; on Eliquis - Continue Eliquis as previous. 11. History of CKD; stage III-IV - Stable with estimated GFR 55 mL/min and normal creatinine of 1.05 mg/dL this admission. 12. Macular degeneration - Stable. Resume eye drops as previous. 13. History of polymyositis - Noted. 14. Depression with anxiety - Continue home regimen. 15. Fibromyalgia - Stable. 16. History of CVA (September 2023) with subsequent Migraine headaches; on as needed Nurtec ODT - Current treatment to continue. 17. History of UTI - Noted with UA negative for infection this admission. 18. History of cellulitis - Noted with no signs of recurrence at this time. 19. History of Lyme disease - Noted. 20. GERD; with history of Jasso's esophagus and history of gastric atrophy - Noted. Continue Protonix 40 mg BID. 21. Chronic constipation - Stable. Give laxatives prn and resume Linactolide as previous. 22. History of cholecystectomy - Noted. 23. History of hysterectomy - Noted. 24. Osteoporosis - Stable. 25. History of bilateral CTS - Noted. 26. DVT prophylaxis - Patient is already on Eliquis for #10 which will be continued. Total time: Approximately 75 minutes. Charges/Coding Visit Charges Inpatient E&M: 51552 Init Hosp L3
[2024-03-18] VITALS (9 sets, daily range): BP systolic 141–174; BP diastolic 90–103; PULSE 78–100; RESP 16–21; TEMP 36.1–36.6; O2SAT 93–98
[2024-03-18] MEDS: Azithromycin 250 MG Tablet 500 MG PO (00:40)
[2024-03-18] MEDS: Ceftriaxone 1 GM/50 ML BAG IV ×2 (00:41→19:52)
[2024-03-18] MEDS: Labetalol (Compound) 20 MG/4 ML SYRINGE 10 MG IV (00:57)
[2024-03-18 01:15] LABS: Uric Acid 7.5 mg/dL (2.6-6.0)
[2024-03-18 02:09] LABS: Hemoglobin A1c 6.4 % (3.8-5.6)
--- NOTE | 2024-03-18 02:40 | CPS ---
Patient set up with sleep lab PAP machine for the night. CPAP of 14 and medium sized nasal pillows.
[2024-03-18] MEDS: Ascorbic Acid 500 MG Tablet 1000 MG PO ×2 (07:55→18:28)
[2024-03-18] MEDS: predniSONE 20 MG Tablet 60 MG PO (07:55)
[2024-03-18] MEDS: Ursodiol 250 MG Tablet PO ×2 (07:56→18:27)
[2024-03-18 09:14] LABS: Hematocrit 38.7 % (37-47); Hemoglobin 11.7 g/dL (12.0-15.0); Mean Corp Hgb Conc 30.2 g/dL (32-36); Mean Corpuscular Hgb 25.8 pg (27.0-32.0); Mean Corpuscular Volume 85.2 fL (81-99); Mean Platelet Vol. 10.3 fl (6.2-12.0); Platelet Count 249 K/mm3 (150-450); RBC Distribution Width CV 15.7 % (11.6-14.6); RBC Distribution Width SD 48.6 fl (35.1-43.9); Red Blood Count 4.54 M/mm3 (4.2-5.4); White Blood Count 7.5 K/mm3 (4.4-11.0)
[2024-03-18 09:36] LABS: Bedside Glucose 116 mg/dL (74-106)
[2024-03-18 09:57] LABS: Anion Gap 4 (5-15); BUN 23 mg/dL (7-18); BUN/Creat Ratio 19.2 RATIO (10-20); Calcium,Total 9.8 mg/dL (8.5-10.1); Chloride 105 mmol/L (98-107); EST Glomerular Filtration Rate 47 mL/min (>60); Est Glom Filt Rate - Afr Amer 57 mL/min (>60); Glucose 116 mg/dL (74-106); Potassium 3.9 mmol/L (3.5-5.1); Sodium Level 135 mmol/L (136-145)
[2024-03-18] MEDS: Lactobacillis Acidophilus 2 CAP PO ×2 (10:11→19:45)
[2024-03-18] MEDS: Colchicine 0.6 MG TABLET PO ×2 (10:12→19:45)
[2024-03-18] MEDS: Loratadine 10 MG Tablet PO (10:12)
[2024-03-18] MEDS: DULoxetine Hcl 60 MG Capsule 120 MG PO (10:13)
[2024-03-18] MEDS: guaiFENesin 1,200 MG Tablet 1200 MG PO ×2 (10:14→19:45)
[2024-03-18] MEDS: APIXABAN 5 MG TABLET PO ×2 (10:14→19:45)
[2024-03-18] MEDS: Metoprolol Tartrate 25 MG Tablet 12.5 MG PO ×2 (10:15→19:46)
[2024-03-18] MEDS: Omega-3 Acid Ethyl Esters 1 GM Capsule PO (10:21)
[2024-03-18] MEDS: Ezetimibe 10 MG Tablet PO (10:22)
[2024-03-18] MEDS: Pantoprazole Sodium 40 MG Tablet PO ×2 (10:22→19:45)
[2024-03-18] MEDS: Ergocalciferol 1.25 MG (50, 000 UNIT) Capsule PO (10:23)
[2024-03-18] MEDS: Zinc Sulfate 50 mg zinc (220 mg) ORAL capsule PO (10:24)
[2024-03-18] MEDS: Vitamin E 400 UNITS Capsule 800 UNITS PO (10:24)
[2024-03-18] MEDS: Pregabalin 75 MG Capsule 150 MG PO ×2 (10:26→19:52)
--- NOTE | 2024-03-18 11:03 | PCM.PN.HOSP ---
Reason for Visit Reason for Visit: Diagnoses Morbid (severe) obesity due to excess calories (03/18/24) Hyperuricemia without signs of inflammatory arthritis and tophaceous disease (03/18/24) Obstructive sleep apnea (adult) (pediatric) (03/18/24) Pneumonia, unspecified organism (03/18/24) Pulmonary fibrosis, unspecified (03/18/24) Gout, unspecified (03/18/24) Other abnormalities of breathing (03/18/24) Difficulty in walking, not elsewhere classified (03/18/24) Weakness (03/18/24) Body mass index [BMI] 40.0-44.9, adult (03/18/24) Subjective Subjective Patient admitted overnight for several concerns including fever, cough, shortness of breath, weakness and concern for left wrist gout. Saw patient at bedside this morning. Patient was sitting up in bed and appeared very comfortable. She was breathing comfortably on room air at rest with good oxygen saturations. Her left wrist did appear somewhat more swollen than her right wrist but she had good movement of the wrist and hand. Patient reported feeling moderately better this morning than last days. She does have mild chest tightness currently but this is improved. She had not worked with therapy yet when I saw her. No other new concerns this morning. Objective Data Objective Data Vital Signs: Vital Signs Temp Pulse Resp BP Pulse Ox O2 Del Method FiO2 97.9 F 80 18 165/96 H 96 Room Air 21 03/18/24 07:37 03/18/24 10:15 03/18/24 07:37 03/18/24 07:37 03/18/24 07:37 03/18/24 07:37 03/18/24 04:46 Oxygen Delivery Method Room Air Weight: 104.4 kg Body Mass Index (BMI) 43.4 Intake & Output: Intake and Output for Last 24 Hours 03/16/24 03/17/24 03/18/24 23:59 23:59 23:59 Intake Total 50 / 50 Balance 50 / 50 Lab / Micro Data 03/18/24 09:05 03/18/24 09:05 Labs: Laboratory Results - last 24 hr 03/17/24 20:25: WBC 10.3, RBC 5.09, Hgb 13.5, Hct 43.7, MCV 85.9, MCH 26.5 L, MCHC 30.9 L, RDW Std Deviation 49.2 H, RDW Coeff of Paulo 15.6 H, Plt Count 238, MPV 11.8, Immature Gran % (Auto) 0.300, Neut % (Auto) 73.4 H, Lymph % (Auto) 15.8 L, [place] % (Auto) 7.4, Eos % (Auto) 2.7, Baso % (Auto) 0.4, Absolute Neuts (auto) 7.6, Absolute Lymphs (auto) 1.62, Nucleated RBC % 0, Sodium 136, Potassium 3.9, Chloride 104, Carbon Dioxide 27.0, Anion Gap 5, BUN 18, Creatinine 1.05 H, Estim Creat Clear Calc 56.23, Est GFR (MDRD) Af Amer 67, Est GFR (MDRD) Non-Af 55 L, BUN/Creatinine Ratio 17.1, Glucose 106, Uric Acid 7.5 H, Calcium 10.0, Phosphorus 3.0, Magnesium 2.0, Total Bilirubin 0.70, AST 29, ALT 19, Alkaline Phosphatase 199 H, Troponin I High Sens 17, B-Natriuretic Peptide 50.1, Total Protein 7.1, Albumin 3.1 L, Globulin 4.0, Albumin/Globulin Ratio 0.8 L 03/17/24 21:26: Urine Color Yellow, Urine Clarity Clear, Urine pH 7.0, Ur Specific [place] 1.015, Urine Protein 500 H, Urine Glucose (UA) Normal, Urine Ketones Negative, Urine Occult Blood 25 H, Urine Nitrite Negative, Urine Bilirubin Negative, Urine Urobilinogen Normal, Ur Leukocyte Esterase 25 H, Urine RBC 0-5 SEEN, Urine WBC 0-5 SEEN, Ur Squamous Epith Cells 0-5 SEEN, Amorphous Sediment 1+ PHOS, Urine Bacteria 0 SEEN, Urine Mucus 0 SEEN 03/18/24 01:25: Hemoglobin A1c 6.4 H 03/18/24 07:51: POC Glucose 116 H 03/18/24 09:05: WBC 7.5, RBC 4.54, Hgb 11.7 L, Hct 38.7, MCV 85.2, MCH 25.8 L, MCHC 30.2 L, RDW Std Deviation 48.6 H, RDW Coeff of Paulo 15.7 H, Plt Count 249, MPV 10.3, Sodium 135 L, Potassium 3.9, Chloride 105, Carbon Dioxide 26.0, Anion Gap 4 L, BUN 23 H, Creatinine 1.20 H, Estim Creat Clear Calc 49.20, Est GFR (MDRD) Af Amer 57 L, Est GFR (MDRD) Non-Af 47 L, BUN/Creatinine Ratio 19.2, Glucose 116 H, Calcium 9.8 Micro: Microbiology 03/18/24 09:45 Urine, Clean Catch Legionella Antigen - Final 03/18/24 09:45 Urine, Clean Catch Streptococcus pneumoniae Antigen (M - Final 03/18/24 02:05 Mucosa - Nasopharyngeal Respiratory Panel (PCR) - Final 03/17/24 20:25 Mucosa - Nasopharyngeal Coronavirus COVID-19 PCR - Final Radiography Diagnostic Testing: Radiology Impression Chest X-Ray 03/17/24 20:45 IMPRESSION: Concern for posterior right lower lobe pneumonia. Correlate with exam. CT could further evaluate as clinically indicated.. Otherwise radiographic follow-up recommended in 6 weeks after treatment to ensure resolution. Electronically Signed: Lebron Dill MD at 22:02 EDT Reading Location ID and State: [facility] / [place] Tel , Service support , Hand X-Ray 03/17/24 20:45 IMPRESSION: Distal forearm and hand edema. No acute osseous finding.. Osteopenia and first carpometacarpal joint osteoarthritis Electronically Signed: Lebron Dill MD at 21:58 EDT Reading Location ID and State: [facility] / [place] Tel , Service support , Wrist X-Ray 03/17/24 20:45 IMPRESSION: No evidence of acute injury. Severe osteoarthritis along the first carpometacarpal joint.. Electronically Signed: Lebron Dill MD at 21:51 EDT , Rhythm Strip Rhythm Strip: Sinus Rhythm Rate: 93 Ectopy: None Physical Exam Const alert, oriented x3 and no apparent distress Constitutional Narrative: Pleasant elderly female, morbidly obese, sitting up comfortably in bed, conversing normally, no acute distress. General Appearance: cooperative and comfortable HEENT normocephalic, head/scalp atraumatic, hearing grossly normal bilaterally, nasal mucous membranes and turbinates normal and moist oral mucous membranes Eyes PERRL, EOMs intact bilaterally and conjunctivae normal Neck full ROM Chest inspection of chest normal Resp normal respiratory effort and no use of accessory muscles Resp Narrative: Mildly decreased breath sounds bilaterally throughout, suspect due to body habitus. No wheezing or crackles noted. Breathing comfortably on room air at rest with good oxygen saturations. Cardio regular rate, regular rhythm, no murmurs and peripheral pulses 2+ throughout GI normal to inspection, nondistended, normoactive bowel sounds, soft to palpation, non-tender and non-distended Back/Spine normal ROM Extremity Extremity Narrative: Left wrist with mild to moderate swelling noted. Mild tenderness to palpation. Otherwise only mildly decreased range of motion and no significant pain with movement. Neuro no focal motor deficits and no sensory deficits noted Speech: speech normal Psych mental status grossly normal Assessment & Plan Assessment/Plan (1) Right lower lobe pneumonia: QUALIFIERS: Pneumonia type: due to unspecified organism Qualified Code(s): J18.9 - Pneumonia, unspecified organism (2) Ambulatory dysfunction: (3) Gout flare: QUALIFIERS: Gout site: wrist Gout etiology: unspecified cause Laterality: left Qualified Code(s): M10.9 - Gout, unspecified PLAN: Plan Patient is a 69-year-old female who presented [facility] on 03/15/2024 with chest discomfort, shortness of breath and worsening left wrist pain. 1. Concern for right lower lobe pneumonia in setting of known mild pulmonary fibrosis with mild hypoxia with exertion ? Chest x-ray on admit showed concern for posterior right lower lobe pneumonia. Patient afebrile and hemodynamically stable since admission, no leukocytosis. COVID PCR, respiratory PCR panel and urine antigens negative. Patient with mild hypoxia on admission, now stable on room air at rest. Will continue ceftriaxone and azithromycin for now and plan to complete a 5-day course of antibiotics total. Will have patient complete oxygen qualification testing tomorrow morning in anticipation of likely discharge home tomorrow. 2. Mild acute on chronic debility ? PT/OT/case management following. Lives at home with her son; son is disabled but has good functional status and can assist patient with cooking and shopping. Patient only mildly debilitated from baseline, suspect she will need either home health care or outpatient physical therapy on discharge. 3. Left wrist pain and swelling with history of gout ? Prior history of gout and per patient previous gout flares were similar to her current presentation. Uric acid elevated at 7.5 on admit. Treating with prednisone and colchicine with improvement, will plan to complete 5 to 7-day course total. Hold home allopurinol for now. Chronic medical conditions: ? Morbid obesity: BMI 43 on admit. Complicates hospital course, care and prognosis. ? BENTLEY: Continue home nocturnal CPAP. ? Type 2 diabetes mellitus: Home regimen of insulin degludec 45 units at night and lispro 12 units with meals. Treating with Lantus 35 units at night and lispro 12 units with meals plus sliding scale insulin. Patient notably is on steroids as above, will adjust insulin regimen accordingly. ? Anxiety/depression/fibromyalgia: Stable. Continue home duloxetine, Ativan 3 times daily as needed, pregabalin. ? 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 ? Hypertension: Continue home Lopressor. ? Hyperlipidemia: Continue home ezetimibe. ? GERD: Continue home PPI. ? History of NAFLD: Continue home ursodiol. ? CKD stage III: Creatinine 1.05 on admit, at baseline. Stable. DVT prophylaxis: Not indicated, on therapeutic Eliquis CODE STATUS: Full code, verified Expected disposition: Home, 1 to 2 days Total clinical time spent by myself addressing the patient's medical issues, reviewing all the data, and collaborating with patient's care team: 35 minutes. Charges/Coding Visit Charges Inpatient E&M: 94061 Subs Hosp L2
[2024-03-18 12:02] LABS: Bedside Glucose 257 mg/dL (74-106)
[2024-03-18] MEDS: Insulin Lispro 100 UNIT/ML INSULN.PEN 12 UNIT SC ×2 (12:58→18:29)
[2024-03-18] MEDS: Insulin Lispro 100 UNIT/ML INSULN.PEN SC ×2 (12:59→18:30)
[2024-03-18 16:38] LABS: Bedside Glucose 246 mg/dL (74-106)
[2024-03-18] MEDS: Latanoprost 0.005% 1 Bottle 1 DRP OPHTHALMIC (19:46)
[2024-03-18] MEDS: Azithromycin 500 MG in Dextrose 5%-Water (250mL Bag) 250 ML 250 MG IV (21:13)
[2024-03-18] MEDS: Insulin Glargine-YFGN 100 UNIT/ML Pen 35 UNIT SC (21:17)
[2024-03-18 21:41] LABS: Bedside Glucose 232 mg/dL (74-106)
[2024-03-19 03:28] VITALS: BP 153/91; PULSE 84; RESP 16; TEMP 36.8; O2SAT 96
--- NOTE | 2024-03-19 05:59 | RAD_ITS ---
HISTORY: Pneumonia-486. TECHNIQUE: XR Chest 2 Views. COMPARISON: 03/17/2024. FINDINGS: LINES/TUBES: None. CARDIOMEDIASTINAL BORDERS: Stable. LUNGS: Low lung volumes with mild linear left basilar opacity again seen, likely atelectasis. PLEURA: Unchanged mild left pleural effusion or pleural scarring. RAD/Chest PA and Lateral IMPRESSION: No significant interval change. Electronically Signed: Giovanna Lowe MD at 8:45 EDT ,
[2024-03-19 07:22] VITALS: O2SAT 92; O2SAT 96
[2024-03-19] MEDS: Insulin Lispro 100 UNIT/ML INSULN.PEN 12 UNIT SC ×3 (08:41→16:33)
[2024-03-19] MEDS: Ursodiol 250 MG Tablet PO (08:44)
[2024-03-19] MEDS: Ascorbic Acid 500 MG Tablet 1000 MG PO (08:44)
[2024-03-19] MEDS: predniSONE 20 MG Tablet 40 MG PO (08:44)
[2024-03-19 09:45] VITALS: BP 163/103; PULSE 93; RESP 18; TEMP 36.3; O2SAT 97
[2024-03-19] MEDS: Ezetimibe 10 MG Tablet PO (09:56)
[2024-03-19] MEDS: Omega-3 Acid Ethyl Esters 1 GM Capsule PO (09:56)
[2024-03-19] MEDS: Pantoprazole Sodium 40 MG Tablet PO (09:57)
[2024-03-19] MEDS: Colchicine 0.6 MG TABLET PO (09:57)
[2024-03-19] MEDS: Zinc Sulfate 50 mg zinc (220 mg) ORAL capsule PO (09:57)
[2024-03-19] MEDS: guaiFENesin 1,200 MG Tablet 1200 MG PO (09:58)
[2024-03-19] MEDS: DULoxetine Hcl 60 MG Capsule 120 MG PO (09:58)
[2024-03-19] MEDS: Vitamin E 400 UNITS Capsule 800 UNITS PO (09:58)
[2024-03-19] MEDS: APIXABAN 5 MG TABLET PO (09:58)
[2024-03-19] MEDS: Lactobacillis Acidophilus 2 CAP PO (09:59)
[2024-03-19] MEDS: Loratadine 10 MG Tablet PO (09:59)
[2024-03-19] MEDS: Pregabalin 75 MG Capsule 150 MG PO (10:06)
[2024-03-19 10:16] VITALS: PULSE 93
[2024-03-19] MEDS: Metoprolol Tartrate 25 MG Tablet 12.5 MG PO (10:16)
--- NOTE | 2024-03-19 10:44 | CASEMGMT ---
Discharge Planning A list of HH providers including quality and resource use data and consistent with the patient's preferred geographic region, medical needs, and insurance network was created in [employer] Guide.? This list was provided to the RN NOAH Vo, Discharge Planning Asst.
--- NOTE | 2024-03-19 11:10 | CASEMGMT ---
KALI ZAMORA Assessment: Face to Face with pt for initial transition planning/care coordination assessment. KALI ZAMORA introduced self and role at [facility], pt voices understanding and consents to assessment. Pt sitting up in bed in no distress. Pt is A&O x4 and answers all questions appropriately at this time. Care providers, pharmacy, and demographics verified/updated. Admitting Dx: PLL Pneumonia, Respiratory Insufficiency PCP: Zhou Specialists: [place] - GI, [place] - Podiatry, [place] - medical sociologist, Nas - nephrology, Genet Burnette - DM. Preferred Pharmacy: [facility] Insurance: [facility] Prescription Benefit: yes LNOK: Abraham - brother, Oliver - son Living Arrangements: Pt lives with son who is disabled in a 1 story home with no steps to enter. Pt states I with ADLs and needs assistance with IADLs. Transportation: Pt drives self and denies concerns with transportation. DME: Wheeled walker, Rollator, Bedside Commode HHC/SNF: Hx of SNF - [facility], denies Hx of HHC. Pt states would like to receive HHC services. Provided pt with list of local HHC agencies covered by her insurance. Pt selected [facility] as ageny of choice. Pt states she is concerned with finances and has difficulty paying for groceries. Pt states sometimes I have to decide on groceries or paying for medications, it's really hard right now. Pt would like to speak with SW about assistance programs available, KALI ZAMORA informed SW of this. CM to follow. Advised pt to ask CM if any further question/concerns/needs arise, voices understanding. Pt Goal: Home with HHC Plan: Home with HHC iMchelle BASS CM
--- NOTE | 2024-03-19 11:31 | DS.PCM_ITS ---
Providers Date of Admission: 03/18/24 Date of Discharge: 03/19/24 Primary Care Physician: Dr. Vamsi Epperson MD Reason For Visit: RLL PNEUMONIA, RESPIRATORY INSUFFICIENCY, Diagnosis Discharge Diagnosis (1) Right lower lobe pneumonia: Status: Acute Code(s): J18.9 - Pneumonia, unspecified organism Qualifiers: Pneumonia type: due to unspecified organism Qualified Code(s): J18.9 - Pneumonia, unspecified organism (2) Ambulatory dysfunction: Status: Acute Code(s): R26.2 - Difficulty in walking, not elsewhere classified (3) Gout flare: Status: Acute Code(s): M10.9 - Gout, unspecified Qualifiers: Gout etiology: unspecified cause Gout site: wrist Laterality: left Q ualified Code(s): M10.9 - Gout, unspecified Medications at Discharge Home Medications CPAP #1 ea 09/24/20 blood pressure monitor (Blood Pressure Kit) #1 ea 09/24/20 blood sugar diagnostic (Accu-Chek Christi Plus test strips) #10 ea 09/24/20 blood-glucose meter #1 ea 09/24/20 lancets (Accu-Chek Softclix Lancets) #100 ea 09/24/20 latanoprost 0.005 % eye drops 1 drp ophthalmic (eye) QHS MACULAR DEGENRATION 02/24/21 simethicone 80 mg chewable tablet 80 mg PO 4X/DAY PRN Flatulence #30 tabs 12/07/21 vitamin E 268 mg (400 unit) capsule 800 unit PO DAILY vitamin #60 caps 02/08/22 Bilateral wrist splints #2 ea 06/07/22 pen needle, diabetic 32 gauge x 1/4 (Novofine 32) #200 ea 07/27/22 fluticasone propionate 50 mcg/actuation nasal spray,suspension 2 spray intranasal DAILY PRN Nasal Congestion 09/06/22 insulin lispro 100 unit/mL subcutaneous pen (Humalog KwikPen (U-100) Insulin) 12 unit subcut TID 02/28/23 loratadine 10 mg tablet 10 mg PO DAILY allergies #90 tabs 08/23/23 pregabalin 150 mg capsule 150 mg PO BID pain #180 caps 08/23/23 rimegepant 75 mg disintegrating tablet (Nurtec ODT) 75 mg PO DAILY PRN migraine headache #8 tabs 08/23/23 albuterol sulfate 90 mcg/actuation aerosol inhaler (Ventolin HFA) 1 - 2 puff inhalation Q4H PRN Wheezing 11/01/23 apixaban 5 mg tablet (Eliquis) 5 mg PO BID BLOOD THINNER #180 tabs 11/16/23 cholecalciferol (vitamin D3) 1,250 mcg (50,000 unit) capsule 1,250 mcg PO LUCIO vitamin #14 caps 11/16/23 linaclotide 145 mcg capsule (Linzess) 145 mcg PO DAILY BOWELS #90 caps 11/16/23 omega-3 fatty acids 1,000 mg capsule 1,000 mg PO DAILY #90 caps 11/16/23 metoprolol tartrate 25 mg tablet 12.5 mg (1/2 x 25 mg) PO BID #60 tabs 11/21/23 duloxetine 60 mg capsule,delayed release See Rx Instructions .Route .COMPLEX #180 caps 12/23/23 ezetimibe 10 mg tablet (Zetia) 10 mg PO DAILY #60 tabs 12/23/23 lorazepam 0.5 mg tablet 0.5 mg PO Q4 PRN anxiety 12/23/23 ursodiol 250 mg tablet 250 mg PO BID gallstones #90 tabs 12/23/23 allopurinol 200 mg tablet 200 mg PO DAILY #30 tabs 12/27/23 pantoprazole 40 mg tablet,delayed release 40 mg PO BID reflux #180 tabs 01/16/24 insulin degludec 100 unit/mL (3 mL) subcutaneous pen (Tresiba FlexTouch U-100 insulin) 45 unit subcut QHS 02/16/24 amoxicillin 875 mg-potassium clavulanate 125 mg tablet 1 tab PO BID 3 days #6 tabs 03/19/24 colchicine 0.6 mg capsule 0.6 mg PO BID 5 days #10 caps 03/19/24 prednisone 20 mg tablet 40 mg (2 x 20 mg) PO DAILYCM 5 days #10 tabs 03/19/24 Hospital Course Operations None Procedures EKG and - (Chest x-ray, left hand/wrist x-ray) Summary of Care Provided Minutes Spent on Discharge: 35 Hospital Course: Patient is a 69-year-old female who presented [facility] on 03/15/2024 with chest discomfort, shortness of breath and worsening left wrist pain. Hospital course as noted below. Patient discharged home with home health care in stable condition on 03/19. 1. Mild community-acquired right lower lobe pneumonia in setting of known mild pulmonary fibrosis with mild hypoxia with exertion ? Chest x-ray on admit showed concern for posterior right lower lobe pneumonia. Patient afebrile and hemodynamically stable since admission, no leukocytosis. COVID PCR, respiratory PCR panel and urine antigens negative. Patient with mild hypoxia on admission, now stable on room air at rest. Completed home O2 testing on day of discharge and did not require any supplemental oxygen. Treated with ceftriaxone and azithromycin while inpatient, discharged on Augmentin to complete 5-day course of antibiotics total. 2. Mild acute on chronic debility ? PT/OT/case management followed. Lives at home with her son; son is disabled but has good functional status and can assist patient with cooking and shopping. Patient only mildly debilitated from baseline. Stable for discharge home with home health care on 03/19. 3. Left wrist pain and swelling with history of gout ? Prior history of gout and left wrist and per patient previous gout flares were similar to her current presentation. Uric acid elevated at 7.5 on admit. Wrist/hand x-ray on admit showed distal forearm and hand edema, no acute osseous finding, known osteopenia and first carpometacarpal joint osteoarthritis. Treated with prednisone and colchicine while inpatient with mild to moderate improvement, discharged on these medications to complete 7-day courses total. Recommended that patient hold home allopurinol until completing courses of prednisone and colchicine. Chronic medical conditions: ? Morbid obesity: BMI 43 on admit. Complicated hospital course, care and prognosis. ? BENTLEY: Continue home nocturnal CPAP. ? Type 2 diabetes mellitus: Home regimen of insulin degludec 45 units at night and lispro 12 units with meals. Treated with Lantus 35 units at night and lispro 12 units with meals plus sliding scale insulin while inpatient, okay to resume home regimen on discharge. ? Anxiety/depression/fibromyalgia: Stable. Continue home duloxetine, Ativan 3 times daily as needed, pregabalin. ? 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 ? Hypertension: Continue home Lopressor. ? Hyperlipidemia: Continue home ezetimibe. ? GERD: Continue home PPI. ? History of NAFLD: Continue home ursodiol. ? CKD stage III: Creatinine 1.05 on admit, at baseline. Stable. Total clinical time spent by myself addressing the patient's medical issues, reviewing all the data, and collaborating with patient's care team: 35 minutes. Physical Exam Const alert, oriented x3 and no apparent distress Constitutional Narrative: Pleasant elderly female, morbidly obese, sitting up comfortably in bed, conversing normally, no acute distress. General Appearance: cooperative and comfortable HEENT normocephalic, head/scalp atraumatic, hearing grossly normal bilaterally, nasal mucous membranes and turbinates normal and moist oral mucous membranes Eyes PERRL, EOMs intact bilaterally and conjunctivae normal Neck full ROM Chest inspection of chest normal Resp normal respiratory effort and no use of accessory muscles Resp Narrative: Mildly decreased breath sounds bilaterally throughout, suspect due to body habitus. No wheezing or crackles noted. Breathing comfortably on room air at rest with good oxygen saturations. Stable. Cardio regular rate, regular rhythm, no murmurs and peripheral pulses 2+ throughout GI normal to inspection, nondistended, normoactive bowel sounds, soft to palpation, non-tender and non-distended Back/Spine normal ROM Extremity Extremity Narrative: Left wrist with mild to moderate swelling noted. Mild tenderness to palpation. Otherwise only mildly decreased range of motion and no significant pain with movement. Stable. Neuro no focal motor deficits and no sensory deficits noted Speech: speech normal Psych mental status grossly normal Weight / BMI Weight Weight: 104.4 kg Body Mass Index (BMI) 43.4 ABG / Lab / Microbiology Data 03/18/24 09:05 03/18/24 09:05 Laboratory: Laboratory Results - last 24 hr 03/18/24 11:39: POC Glucose 257 H 03/18/24 16:13: POC Glucose 246 H 03/18/24 21:15: POC Glucose 232 H Microbiology: Microbiology 03/18/24 09:45 Urine, Clean Catch Legionella Antigen - Final 03/18/24 09:45 Urine, Clean Catch Streptococcus pneumoniae Antigen (M - Final 03/18/24 02:05 Mucosa - Nasopharyngeal Respiratory Panel (PCR) - Final 03/17/24 20:25 Mucosa - Nasopharyngeal Coronavirus COVID-19 PCR - Final Radiography Diagnostic Testing: Radiology Impression Chest X-Ray 03/19/24 05:59 IMPRESSION: No significant interval change. Electronically Signed: Giovanna Lowe MD at 8:45 EDT Reading Location ID and State: [facility] / [place] Tel , Service support , Meaningful Use Info Meaningful Use Meaningful Use Diagnoses (Choose all that apply): None applicable Ischemic Stroke Statin Dosing Therapy Reference: STATIN DOSE THERAPY REFERENCE: * Patients > 75 years receive moderate or high dose statin therapy. * Patients 75 years or YOUNGER should receive HIGH intensity statin dose unless contraindicated. You will be required to document reason for non-treatment if statin daily dose does not meet guidelines. HIGH DOSE STATIN THERAPY DAILY Atorvastatin > than or = to 40 mg Rosuvastatin > than or = to 20 mg Amlodipine + Atorvastatin > than or = to 2.5/40 mg Ezetimibe + Simvastatin 10/80 mg Simvastatin 80mg Discharge Plan Admission Admit Date/Time: 03/18/24 00:38 Primary Reason for Your Visit: Shortness of breath and left wrist pain Attending Provider: Kimani Huynh Primary Care Provider: Vamsi Epperson Consulting Providers: Fernando Campa Instructions Additional Instructions / Restrictions: Please take 5 more days of colchicine and prednisone as Discharge Orders/Prescriptions Prescriptions: New prednisone 20 mg Tablet 40 mg PO DAILYCM 5 Days Qty: 10 0RF colchicine 0.6 mg Capsule 0.6 mg PO BID 5 Days Qty: 10 0RF amoxicillin-pot clavulanate 875-125 mg tablet 1 tab PO BID 3 Days Qty: 6 0RF Continued (DME) lancets [Accu-Chek Softclix Lancets] Misc See Rx Instructions .ROUTE .MEDSUPPLY Qty: 100 Rx Instructions: As directed, Test 4 times daily before meals and at bedtime (DME) Accu-Chek Christi Plus test strp Strip See Rx Instructions .ROUTE .MEDSUPPLY Qty: 10 Rx Instructions: As directed; Test 4 times daily before meals and at bedtime (DME) CPAP See Rx Instructions .Route .MEDSUPPLY Qty: 1 Rx Instructions: 14 cm H2O (DME) blood-glucose meter Misc See Rx Instructions .ROUTE .MEDSUPPLY Qty: 1 Rx Instructions: As directed (DME) blood pressure monitor [Blood Pressure Kit] Kit See Rx Instructions .ROUTE .MEDSUPPLY Qty: 1 Rx Instructions: As directed latanoprost 0.005 % drops 1 drp ophthalmic (eye) QHS vitamin E 400 unit capsule 800 unit PO DAILY Qty: 60 5RF (DME) pen needle, diabetic [Novofine 32] 32 gauge x 1/4 needle See Rx Instructions .ROUTE .MEDSUPPLY Qty: 200 6RF Rx Instructions: As directed; 4x/day (DME) Bilateral wrist splints See Rx Instructions .Route .MEDSUPPLY Qty: 2 0RF Rx Instructions: As directed insulin lispro [Humalog KwikPen Insulin] 100 unit/mL insulin pen 12 unit subcut TID Patient Comments: PT STATES SHE ONLY TAKES 12 UNITS IF HER BS IS 150+. DOES NOT DO SLIDING SCALE Rx Instructions: 12u with meals, 6u with snacks. +SSI 180-210+2; 211-240+3; 241-300+5; >300 +7 MDD 50 loratadine 10 mg tablet 10 mg PO DAILY Qty: 90 1RF Nurtec ODT 75 mg tablet,disintegrating 75 mg PO DAILY PRN (Reason: migraine headache) Qty: 8 5RF pregabalin 150 mg capsule 150 mg PO BID Qty: 180 1RF Linzess 145 mcg capsule 145 mcg PO DAILY Qty: 90 0RF Rx Instructions: TAKE 1 CAPSULE BY MOUTH IN THE MORNING omega-3 fatty acids 1,000 mg capsule 1,000 mg PO DAILY Qty: 90 0RF Eliquis 5 mg tablet 5 mg PO BID Qty: 180 1RF cholecalciferol (vitamin D3) 1,250 mcg (50,000 unit) capsule 1,250 mcg PO LUCIO Qty: 14 1RF lorazepam 0.5 mg tablet 0.5 mg PO Q4 PRN (Reason: anxiety) duloxetine 60 mg capsule,delayed release(DR/EC) See Rx Instructions .ROUTE .COMPLEX Qty: 180 1RF Dose Instruction: TAKE 2 CAPSULES BY MOUTH DAILY Rx Instructions: TAKE 2 CAPSULES BY MOUTH DAILY ursodiol 250 mg tablet 250 mg PO BID Qty: 90 1RF ezetimibe [Zetia] 10 mg tablet 10 mg PO DAILY Qty: 60 2RF fluticasone propionate 50 mcg/actuation spray,suspension 2 spray INTRANASAL DAILY PRN (Reason: Nasal Congestion) Rx Instructions: administer into each nostril albuterol sulfate [Ventolin HFA] 90 mcg/actuation HFA aerosol inhaler 1 - 2 puff inhalation Q4H PRN (Reason: Wheezing) insulin degludec [Tresiba FlexTouch U-100] 100 unit/mL (3 mL) insulin pen 45 unit SC QHS simethicone 80 mg tablet,chewable 80 mg PO 4X/DAY PRN (Reason: Flatulence) Qty: 30 1RF metoprolol tartrate 25 mg tablet 12.5 mg PO BID Qty: 60 1RF pantoprazole 40 mg tablet,delayed release (DR/EC) 40 mg PO BID Qty: 180 1RF Held allopurinol 200 mg tablet 200 mg PO DAILY Qty: 30 0RF Hold Instructions: Resume on 03/26/24. Referrals / Follow Up: Vamsi Epperson MD [Primary Care Provider] - Disposition Disposition (needs filled in before D/C Order can be placed): Home Health Service Charges/Coding Visit Charges Inpatient E&M: 73251 Disch Hosp >30min
[2024-03-19 11:40] LABS: Bedside Glucose 126 mg/dL (74-106)
[2024-03-19 13:00] LABS: Bedside Glucose 136 mg/dL (74-106)
--- NOTE | 2024-03-19 13:43 | CASEMGMT ---
Bernadine with [facility] called and stated they will accept patient, would like to add SW to order. Informed Bernadine DC today, she stated SOC will be 03/22/24.
--- NOTE | 2024-03-19 13:55 | CASEMGMT ---
KALI CM into pt room, pt sitting in chair in no distress. Informed pt [facility] accepted her and SOC will be 03/22/24.
--- NOTE | 2024-03-19 14:33 | PHA.DC.MC.R ---
Pharmacy [facility] has performed discharge medication reconciliation and counseling for this patient. 1. AUGMENTIN 875MG PO BID X 3 DAYS 2. COLCHICINE 0.6MG PO BID x 5 DAYS 3. PREDNISONE 40MG PO DAILY X 5 DAYS 4. HOLD ALLOPURINOL UNTIL 03/26 The patient's discharge medication list was reviewed for discrepancies and discrepancies were resolved. The patient was counseled on the following discharge medications and changes in medications for homegoing were reviewed. The Reason for Use, instructions for use, and potential side effects were reviewed for all new medications. The patient's questions regarding all of their medications were answered. The patient was able to verbally demonstrate an understanding of their discharge medications. Patient counseled by clinical pharmacy coordinatorCarly. Medications at Discharge Home Medications CPAP #1 ea 09/24/20 blood pressure monitor (Blood Pressure Kit) #1 ea 09/24/20 blood sugar diagnostic (Accu-Chek Christi Plus test strips) #10 ea 09/24/20 blood-glucose meter #1 ea 09/24/20 lancets (Accu-Chek Softclix Lancets) #100 ea 09/24/20 latanoprost 0.005 % eye drops 1 drp ophthalmic (eye) QHS MACULAR DEGENRATION 02/24/21 simethicone 80 mg chewable tablet 80 mg PO 4X/DAY PRN Flatulence #30 tabs 12/07/21 vitamin E 268 mg (400 unit) capsule 800 unit PO DAILY vitamin #60 caps 02/08/22 Bilateral wrist splints #2 ea 06/07/22 pen needle, diabetic 32 gauge x 1/4 (Novofine 32) #200 ea 07/27/22 fluticasone propionate 50 mcg/actuation nasal spray,suspension 2 spray intranasal DAILY PRN Nasal Congestion 09/06/22 insulin lispro 100 unit/mL subcutaneous pen (Humalog KwikPen (U-100) Insulin) 12 unit subcut TID 02/28/23 loratadine 10 mg tablet 10 mg PO DAILY allergies #90 tabs 08/23/23 pregabalin 150 mg capsule 150 mg PO BID pain #180 caps 08/23/23 rimegepant 75 mg disintegrating tablet (Nurtec ODT) 75 mg PO DAILY PRN migraine headache #8 tabs 08/23/23 albuterol sulfate 90 mcg/actuation aerosol inhaler (Ventolin HFA) 1 - 2 puff inhalation Q4H PRN Wheezing 11/01/23 apixaban 5 mg tablet (Eliquis) 5 mg PO BID BLOOD THINNER #180 tabs 11/16/23 cholecalciferol (vitamin D3) 1,250 mcg (50,000 unit) capsule 1,250 mcg PO LUCIO vitamin #14 caps 11/16/23 linaclotide 145 mcg capsule (Linzess) 145 mcg PO DAILY BOWELS #90 caps 11/16/23 omega-3 fatty acids 1,000 mg capsule 1,000 mg PO DAILY #90 caps 11/16/23 metoprolol tartrate 25 mg tablet 12.5 mg (1/2 x 25 mg) PO BID #60 tabs 11/21/23 duloxetine 60 mg capsule,delayed release See Rx Instructions .Route .COMPLEX #180 caps 12/23/23 ezetimibe 10 mg tablet (Zetia) 10 mg PO DAILY #60 tabs 12/23/23 lorazepam 0.5 mg tablet 0.5 mg PO Q4 PRN anxiety 12/23/23 ursodiol 250 mg tablet 250 mg PO BID gallstones #90 tabs 12/23/23 allopurinol 200 mg tablet 200 mg PO DAILY #30 tabs 12/27/23 pantoprazole 40 mg tablet,delayed release 40 mg PO BID reflux #180 tabs 01/16/24 insulin degludec 100 unit/mL (3 mL) subcutaneous pen (Tresiba FlexTouch U-100 insulin) 45 unit subcut QHS 02/16/24 amoxicillin 875 mg-potassium clavulanate 125 mg tablet 1 tab PO BID 3 days #6 tabs 03/19/24 colchicine 0.6 mg capsule 0.6 mg PO BID 5 days #10 caps 03/19/24 prednisone 20 mg tablet 40 mg (2 x 20 mg) PO DAILYCM 5 days #10 tabs 03/19/24
[2024-03-19 15:50] VITALS: BP 171/106; PULSE 85; RESP 16; TEMP 36.7; O2SAT 95
[2024-03-19] MEDS: Insulin Lispro 100 UNIT/ML INSULN.PEN SC (16:33)
[2024-03-19 16:53] LABS: Bedside Glucose 208 mg/dL (74-106)
== END 2024-03-19 18:00 | disposition home health service (06) | DRG 194 ==
LOC: ED 03-18 00:28 → MS3 03-18 00:37
PROVIDERS: Admitting Provider Internal Medicine; Emergency Provider Emergency Medicine; PCP Internal Medicine; Visit Provider Hospitalist
DX: J18.9 Pneumonia, unspecified organism (principal); Z68.41 Body mass index [BMI] 40.0-44.9, adult; E11.22 Type 2 diabetes mellitus with diabetic chronic kidney disease; J84.10 Pulmonary fibrosis, unspecified; N18.30 Chronic kidney disease, stage 3 unspecified; Z79.4 Long term (current) use of insulin; E66.01 Morbid (severe) obesity due to excess calories; I12.9 Hypertensive chronic kidney disease with stage 1 through stage 4 chronic kidney disease, or unspecified chronic kidney disease; G47.33 Obstructive sleep apnea (adult) (pediatric); M18.10 Unilateral primary osteoarthritis of first carpometacarpal joint, unspecified hand; H35.30 Unspecified macular degeneration; F41.8 Other specified anxiety disorders; R26.2 Difficulty in walking, not elsewhere classified; E78.5 Hyperlipidemia, unspecified; G43.909 Migraine, unspecified, not intractable, without status migrainosus; K21.9 Gastro-esophageal reflux disease without esophagitis; M79.7 Fibromyalgia; M10.9 Gout, unspecified; K59.09 Other constipation; R09.02 Hypoxemia; Z86.16 Personal history of COVID-19; Z79.01 Long term (current) use of anticoagulants; M81.0 Age-related osteoporosis without current pathological fracture; Z86.718 Personal history of other venous thrombosis and embolism; Z86.711 Personal history of pulmonary embolism; Z87.440 Personal history of urinary (tract) infections; Z86.73 Personal history of transient ischemic attack (TIA), and cerebral infarction without residual deficits; Z90.49 Acquired absence of other specified parts of digestive tract
CPT/HCPCS: 36415; 71046; 73110; 73130; 80048; 80053; 81001; 82962; 83036; 83735; 83880; 84100; 84484; 84550; 85025; 85027; 87449; 87633; 87635; 93005; 94660; 97161; 97165; 97530; 99285; J7050; A4216

== ENCOUNTER → 2024-03-23 | Outpatient (CLI) | payer MEDICARE, SELFPAY ==
--- NOTE | 2024-03-23 10:02 | VDLE_ITS ---
Reason For Study: BLE Swelling RIGHT LEFT CFV is compressible, spontaneous, phasic, CFV is compressible, spontaneous, phasic, competent and demonstrates normal competent, and demonstrates normal augmentation. augmentation. FV is compressible, spontaneous, phasic, FV is compressible, spontaneous, phasic, competent and demonstrates normal competent and demonstrates normal augmentation. augmentation. POP V is compressible, spontaneous, phasic, POP V is compressible, spontaneous, phasic, competent and demonstrates normal competent and demonstrates normal augmentation. augmentation. T/P Trunk appears partially compressible with T/P Trunk is compressible. bright intraluminal echoes consistent with PTV is compressible. Chronic DVT. PeroV is partially compressible with bright PTV is compressible. intraluminal echoes consistent with Chronic RT PerV is compressible. DVT. SFJ is competent and measures 0.75 cm. SFJ is competent and measures 0.81 cm. GSV proximal thigh measures 0.37 x 0.35 cm. GSV proximal thigh measures 0.40 x 0.40 cm. GSV at knee measures 0.23 x 0.26 cm. GSV at knee measures 0.30 x 0.32 cm. GSV is competent throughout. GSV is competent throughout. SSV proximal calf is competent and measures SSV proximal calf is competent and measures 0.17 x 0.18 cm. 0.19 x 0.18 cm. Procedure Exam performed in department. This is a venous duplex using B-mode, color flow and spectral Doppler. The exam was diagnostic. VL/Venous Duplex US - Willem Extrem Interpretation Summary Chronic deep vein thrombosis is noted in the right tibio-peroneal trunk vein. Chronic deep vein thrombosis is noted in the left peroneal vein. Negative for reflux bilateral. Ordering Physician: Didi Palmer Referring Physician: Vamsi Epperson Performed By: Armaan Eaton, RVT
== END | disposition home or self-care (01) ==
LOC: CVS 10:01
PROVIDERS: PCP Internal Medicine; Visit Provider Physician Assistant
DX: R60.0 Localized edema (principal)
CPT/HCPCS: 93970

== ENCOUNTER 2024-03-27 10:17 | Emergency (ER) | payer MEDICARE, SELFPAY ==
[2024-03-27] VITALS (7 sets, daily range): BP systolic 164–194; BP diastolic 101–121; PULSE 77–102; RESP 14–21; TEMP 36.1–36.6; O2SAT 96–99; BMI 43.4
--- NOTE | 2024-03-27 10:34 | ED.RN ---
pt states she has been dizzy and experiencing blurry vision since this morning. also c/o mild headache for several days. sent in from Dr. Keene's office for hypertension.
--- NOTE | 2024-03-27 10:36 | EKG12_ITS ---
Test Reason : HTN Blood Pressure : / mmHG Vent. Rate : 092 BPM Atrial Rate : 092 BPM P-R Int : 144 ms QRS Dur : 088 ms QT Int : 364 ms P-R-T Axes : 049 -34 061 degrees QTc Int : 450 ms Normal sinus rhythm Left axis deviation Moderate voltage criteria for LVH, may be normal variant ( R in aVL , [place] product ) Abnormal ECG Confirmed by Cem Rios ([id number]), website/blog editor EN GUTIERREZ ([id number]) on 03/30/2024 9:15:47 AM Referred By: GARCIA/JAKOB Confirmed By:Cem Rios
--- NOTE | 2024-03-27 11:26 | EX.ED.DYSGE1 ---
HPI History of Present Illness Chief Complaint: Hypertension Informant: patient Narrative Narrative: Patient is a 69-year-old female with history of hypertension (on metoprolol 12.5 mg twice daily) with recent mission to the hospital for debility as well as pneumonia presenting for elevated blood pressure and wound care. She states she has appointment see her primary care doctor tomorrow. She states she ran out of her blood pressure medicine and there is no refills for it. She notes that she has been having a mild headache but not as bad today. She is her blood pressure was elevated while she was in the hospital as well. Since discharge she did have an episode of coughing up thick mucus but that is since resolved. She is not having chest tightness/heaviness but again this been going on since her hospitalization. Since her discharge home she has had a 10 to 15 pound weight gain is not sure if this is fluid. She is worried that maybe there is fluid in her lungs that is why her blood pressure is elevated. Denies any fever or chills. No other complaints or concerns reported at this time. [facility] Medical History (Updated 03/28/24 @ 10:[address] Vamsi Epperson MD) Obstructive sleep apnea Morbid obesity with BMI of 40.0-44.9, adult Pulmonary fibrosis History of gout UTI (urinary tract infection) Hypercalcemia Grief reaction Encounter for vitamin deficiency screening Diabetes Sleep apnea On home oxygen therapy Hypertension DVT (deep venous thrombosis) Stroke/cerebrovascular accident Elevated troponin Respiratory failure COVID-19 Flu vaccine need Anxiety and depression Essential hypertension Fibrosis of liver Polymyositis Hematuria Depression Anxiety Fatty liver Difficulty swallowing Obesity Bilateral lower extremity edema Myositis Chronic neck and back pain Limb weakness Difficulty balancing when standing Liver disease Shoulder pain Abnormal thyroid function test Fatigue Dizziness Loss of hearing Wears glasses Insulin dependent diabetes mellitus Arthritis History of renal disease Anemia Hx of phlebitis Restless legs Back pain Migraine headache Blackout Dietary restriction Non-smoker CPAP (continuous positive airway pressure) dependence Leg cramps History of pain when walking History of echocardiogram History of stress test Sinusitis Hyperlipidemia High cholesterol Diabetes Glaucoma Vitamin D deficiency Type 2 diabetes mellitus Sensorineural hearing loss of both ears Osteoporosis BENTLEY on CPAP Morbid obesity Macular degeneration Lyme disease Insomnia History of thyroid nodule Gout GERD (gastroesophageal reflux disease) Fibromyalgia CKD (chronic kidney disease), stage III Home Medications ?Medication ?Instructions ?Recorded ?Last Taken ?Type CPAP #1 ea 09/24/20 Unknown History blood pressure monitor (Blood #1 ea 09/24/20 Unknown History Pressure Kit) blood sugar diagnostic (Accu-Chek #10 ea 09/24/20 Unknown History Christi Plus test strips) blood-glucose meter #1 ea 09/24/20 Unknown History lancets (Accu-Chek Softclix #100 ea 09/24/20 Unknown History Lancets) latanoprost 0.005 % eye drops 1 drp ophthalmic (eye) QHS MACULAR 02/24/21 Unknown History DEGENRATION simethicone 80 mg chewable tablet 80 mg PO 4X/DAY PRN Flatulence #30 12/07/21 Unknown Rx tabs Bilateral wrist splints #2 ea 06/07/22 Unknown Rx pen needle, diabetic 32 gauge x #200 ea 07/27/22 Unknown Rx 1/4 (Novofine 32) fluticasone propionate 50 2 spray intranasal DAILY PRN Nasal 09/06/22 Unknown History mcg/actuation nasal Congestion spray,suspension insulin lispro 100 unit/mL 15 unit subcut TID blood sugar 02/28/23 10/31/23 History subcutaneous pen (Humalog KwikPen (U-100) Insulin) loratadine 10 mg tablet 10 mg PO DAILY allergies #90 tabs 08/23/23 11/01/23 Rx pregabalin 150 mg capsule 150 mg PO BID pain #180 caps 08/23/23 11/01/23 Rx rimegepant 75 mg disintegrating 75 mg PO DAILY PRN migraine 08/23/23 Unknown Rx tablet (Nurtec ODT) headache #8 tabs albuterol sulfate 90 mcg/actuation 1 - 2 puff inhalation Q4H PRN 11/01/23 09/19/23 History aerosol inhaler (Ventolin HFA) Wheezing apixaban 5 mg tablet (Eliquis) 5 mg PO BID BLOOD THINNER #180 tabs 11/16/23 Unknown Rx cholecalciferol (vitamin D3) 1,250 1,250 mcg PO LUCIO vitamin #14 caps 11/16/23 Unknown Rx mcg (50,000 unit) capsule linaclotide 145 mcg capsule 145 mcg PO DAILY BOWELS #90 caps 11/16/23 Unknown Rx (Linzess) omega-3 fatty acids 1,000 mg 1,000 mg PO DAILY #90 caps 11/16/23 Unknown Rx capsule duloxetine 60 mg capsule,delayed See Rx Instructions .Route 12/23/23 Unknown Rx release .COMPLEX #180 caps ezetimibe 10 mg tablet (Zetia) 10 mg PO DAILY #60 tabs 12/23/23 Unknown Rx lorazepam 0.5 mg tablet 0.5 mg PO Q4 PRN anxiety 12/23/23 Unknown History ursodiol 250 mg tablet 250 mg PO BID gallstones #90 tabs 12/23/23 Unknown Rx allopurinol 200 mg tablet 200 mg PO DAILY #30 tabs 12/27/23 Unknown Rx pantoprazole 40 mg tablet,delayed 40 mg PO BID reflux #180 tabs 01/16/24 Unknown Rx release insulin degludec 100 unit/mL (3 45 unit subcut QHS blood sugar 02/16/24 Unknown History mL) subcutaneous pen (Tresiba FlexTouch U-100 insulin) colchicine 0.6 mg capsule 0.6 mg PO BID 5 days #10 caps 03/19/24 Unknown Rx vitamin E 268 mg (400 unit) capsule 400 unit PO BID vitamin 03/19/24 Unknown History buspirone 10 mg tablet 10 mg PO TID #270 tabs 03/22/24 Unknown Rx pregabalin 150 mg capsule 150 mg PO BID #180 caps 03/22/24 Unknown Rx metoprolol tartrate 25 mg tablet 12.5 mg (1/2 x 25 mg) PO BID #30 03/27/24 Unknown Rx tabs valsartan 80 mg tablet 80 mg PO BID #60 tabs 03/28/24 Unknown Rx Allergy/AdvReac Type Severity Reaction Status Date / Time saliva substitute Allergy Severe Angioedema Verified 03/28/24 09:56 combination no.9 (From Cream Style [facility]) gemfibrozil AdvReac Severe Myalgia Verified 03/28/24 09:56 Hoetywk-CKH-RgV Reductase AdvReac Severe muscle pain Verified 03/28/24 09:56 Inhibitor Family History Brother Diabetes Mother Diabetes Heart disease Hypertension Grandmother Diabetes Sister Diabetes Heart disease Hypertension Thyroid disorder Father Kidney disease Grandfather Kidney disease Surgical History History of esophagogastroduodenoscopy (EGD) Hx of colonoscopy History of bilateral knee arthroplasty H/O: hysterectomy History of cholecystectomy Social History Smoking Status: Never smoker second hand exposure: No alcohol intake: never substance use type: does not use yessenia/presybeterian: Amish seatbelt use: always ROS ROS ED Constitutional Constitutional ED: Denies chills or fever(s) Cardiovascular Cardiovascular: Reports chest pain Respiratory/Chest Respiratory/Chest: Reports cough and dyspnea Gastrointestinal Gastrointestinal: Denies abdominal pain, nausea or vomiting Musculoskeletal Musculoskeletal: Denies arthralgias or myalgias Integumentary Denies rash Neurologic Neurologic: Reports headache(s); Denies weakness EXAM Physical Exam Const Vital Signs: 03/27/24 10:17 03/27/24 10:17 03/27/24 10:29 Temperature 96.9 F L Temperature Source Temporal Pulse Rate 102 H 99 Respiratory Rate 16 14 Respiratory Effort Short of Breath Respiratory Pattern Tachypnea Blood Pressure 189/110 H 194/107 H Blood Pressure Mean 136 136 Pulse Ox 97 99 Oxygen Delivery Method Room Air Room Air 03/27/24 11:06 03/27/24 11:45 03/27/24 12:22 Temperature Temperature Source Pulse Rate 94 92 77 Respiratory Rate 21 H 19 H Respiratory Effort Respiratory Pattern Blood Pressure 186/121 H 176/103 H 164/105 H Blood Pressure Mean 142 127 124 Pulse Ox 96 98 Oxygen Delivery Method Room Air Room Air 03/27/24 13:18 Temperature Temperature Source Pulse Rate 81 Respiratory Rate Respiratory Effort Respiratory Pattern Blood Pressure 187/115 H Blood Pressure Mean 139 Pulse Ox Oxygen Delivery Method Positive well nourished and well developed General Appearance ED: well developed and NAD HEENT Reports moist mucous membranes Eyes PERRL Neck supple and no JVD Chest Wall inspection of chest normal and palpation of chest normal Resp normal respiratory effort and clear to auscultation bilaterally Resp Narrative: No crackles appreciated Auscultation: Negative for rhonchi or wheezes Cardio regular rate and regular rhythm GI normal to inspection, nondistended, normoactive bowel sounds, non-tender and non-distended Extremity Extremity Narrative: Chronic appearing edema and chronic wounds of the lower extremities General Extremety ED: Yes edema General Extremity: edema Neuro oriented x3 Sensorium / Orientation: alert Motor Exam: Negative for general weakness Psych mental status grossly normal MDM MDM MDM Narrative Medical decision making narrative: Patient presented to the emergency room for elevated blood pressure at wound care. Patient is completely asymptomatic at this time. Notes that since her recent discharge from the hospital she ran out of her metoprolol 12.5 mg that she would normally take twice a day. She states it was never refilled so she was not sure if she was still supposed to be taking it. Patient is given a dose of labetalol in the ER and then oral metoprolol with improvement of her blood pressure however she still hypertensive. Chart review shows that patient was hypertensive during her entire last admission to the hospital. Workup otherwise unremarkable with a normal high sensitivity troponin, normal CBC and grossly normal BMP with very mild baseline elevation of her creatinine and a very mild hypokalemia with a potassium of 3.4. 2 view chest x-ray viewed by myself as well as radiology does not show any acute process. EKG does not show any acute ischemic changes. Is patient's blood pressure is improved while in the emergency room and she is otherwise asymptomatic I do not think this is a hypertensive emergency. Will be discharged home with a prescription for her metoprolol. Given return precautions. She verbalized agreement understand this plan. Discharged home in stable condition. Lab Data Attestation: I reviewed the patient's lab results. Labs: Laboratory Results - last 24 hr 03/27/24 11:43 WBC 10.0 RBC 4.82 Hgb 12.6 Hct 40.7 MCV 84.4 MCH 26.1 L MCHC 31.0 L RDW Std Deviation 49.1 H RDW Coeff of Paulo 15.9 H Plt Count 307 MPV 10.0 Immature Gran % (Auto) 0.500 Neut % (Auto) 59.5 Lymph % (Auto) 27.8 [place] % (Auto) 6.6 Eos % (Auto) 5.2 H Baso % (Auto) 0.4 Absolute Neuts (auto) 5.9 Absolute Lymphs (auto) 2.77 Nucleated RBC % 0 Sodium 141 Potassium 3.4 L Chloride 108 H Carbon Dioxide 28.0 Anion Gap 5 BUN 27 H Creatinine 1.10 H Est GFR (MDRD) Af Amer 63 Est GFR (MDRD) Non-Af 52 L BUN/Creatinine Ratio 24.5 H Glucose 56 L Calcium 10.1 Troponin I High Sens 24 Radiography Diagnostic Testing: Clinical Impression(s) from Imaging Studies Chest X-Ray 03/27/24 11:59 IMPRESSION: Stable chest with no acute or active cardiopulmonary disease. Electronically Signed: Sterling Casanova MD at 12:34 EDT Reading Location ID and State: [address] [place] [address] , Service support , Rhythm Strip Rhythm Strip: Sinus Rhythm Rate: 92 Ectopy: None EKG Initial EKG: Attestation: I personally reviewed and interpreted this EKG as follows: Interpretation: Sinus Rhythm Comments: Normal sinus rhythm rate of 92 bpm Left axis deviation Normal voltage criteria for LVH Normal ST segments Compared to prior EKG on 03/17/2024, no acute changes Discharge Plan Triage Chief Complaint: Hypertension ED Provider: Tennille Farrar Dx/Rx/DC Orders Clinical Impression: Essential hypertension Instructions: ED Hypertension, Established Prescriptions: Continued metoprolol tartrate 25 mg tablet 12.5 mg PO BID Qty: 30 1RF No Action (DME) lancets [Accu-Chek Softclix Lancets] Misc See Rx Instructions .ROUTE .MEDSUPPLY Qty: 100 Rx Instructions: As directed, Test 4 times daily before meals and at bedtime (DME) Accu-Chek Christi Plus test strp Strip See Rx Instructions .ROUTE .MEDSUPPLY Qty: 10 Rx Instructions: As directed; Test 4 times daily before meals and at bedtime (DME) CPAP See Rx Instructions .Route .MEDSUPPLY Qty: 1 Rx Instructions: 14 cm H2O (DME) blood-glucose meter Misc See Rx Instructions .ROUTE .MEDSUPPLY Qty: 1 Rx Instructions: As directed (DME) blood pressure monitor [Blood Pressure Kit] Kit See Rx Instructions .ROUTE .MEDSUPPLY Qty: 1 Rx Instructions: As directed latanoprost 0.005 % drops 1 drp ophthalmic (eye) QHS (DME) pen needle, diabetic [Novofine 32] 32 gauge x 1/4 needle See Rx Instructions .ROUTE .MEDSUPPLY Qty: 200 6RF Rx Instructions: As directed; 4x/day (DME) Bilateral wrist splints See Rx Instructions .Route .MEDSUPPLY Qty: 2 0RF Rx Instructions: As directed insulin lispro [Humalog KwikPen Insulin] 100 unit/mL insulin pen 15 unit subcut TID Patient Comments: pt states she takes 15 units, not 12 as previously recorded Rx Instructions: 15u with meals, 6u with snacks. +SSI 180-210+2; 211-240+3; 241-300+5; >300 +7 MDD 50 loratadine 10 mg tablet 10 mg PO DAILY Qty: 90 1RF Nurtec ODT 75 mg tablet,disintegrating 75 mg PO DAILY PRN (Reason: migraine headache) Qty: 8 5RF pregabalin 150 mg capsule 150 mg PO BID Qty: 180 1RF Linzess 145 mcg capsule 145 mcg PO DAILY Qty: 90 0RF Rx Instructions: TAKE 1 CAPSULE BY MOUTH IN THE MORNING omega-3 fatty acids 1,000 mg capsule 1,000 mg PO DAILY Qty: 90 0RF Eliquis 5 mg tablet 5 mg PO BID Qty: 180 1RF cholecalciferol (vitamin D3) 1,250 mcg (50,000 unit) capsule 1,250 mcg PO LUCIO Qty: 14 1RF lorazepam 0.5 mg tablet 0.5 mg PO Q4 PRN (Reason: anxiety) duloxetine 60 mg capsule,delayed release(DR/EC) See Rx Instructions .ROUTE .COMPLEX Qty: 180 1RF Dose Instruction: TAKE 2 CAPSULES BY MOUTH DAILY Rx Instructions: TAKE 2 CAPSULES BY MOUTH DAILY ursodiol 250 mg tablet 250 mg PO BID Qty: 90 1RF ezetimibe [Zetia] 10 mg tablet 10 mg PO DAILY Qty: 60 2RF valsartan 80 mg tablet 80 mg PO BID Qty: 60 1RF Rx Instructions: Take daily x 2 weeks then increase to BID fluticasone propionate 50 mcg/actuation spray,suspension 2 spray INTRANASAL DAILY PRN (Reason: Nasal Congestion) Rx Instructions: administer into each nostril albuterol sulfate [Ventolin HFA] 90 mcg/actuation HFA aerosol inhaler 1 - 2 puff inhalation Q4H PRN (Reason: Wheezing) insulin degludec [Tresiba FlexTouch U-100] 100 unit/mL (3 mL) insulin pen 45 unit SC QHS colchicine 0.6 mg Capsule 0.6 mg PO BID 5 Days Qty: 10 0RF vitamin E 400 unit capsule 400 unit PO BID Patient Comments: pt takes 1 tab BID simethicone 80 mg tablet,chewable 80 mg PO 4X/DAY PRN (Reason: Flatulence) Qty: 30 1RF allopurinol 200 mg tablet 200 mg PO DAILY Qty: 30 0RF pantoprazole 40 mg tablet,delayed release (DR/EC) 40 mg PO BID Qty: 180 1RF buspirone 10 mg tablet 10 mg PO TID Qty: 270 1RF pregabalin 150 mg capsule 150 mg PO BID Qty: 180 0RF Primary Care Provider: Vamsi Epperson Referrals: Vamsi Epperson MD [Primary Care Provider] - Activity Restrictions/Additional Instructions: Take your blood pressure medicine as prescribed. Follow-up with your primary care doctor tomorrow. Please discuss further blood pressure management and if you need any diuretics with your primary care doctor tomorrow. Print Language: Solomon Islander Disposition Disposition: Home, Self Care Discharge Date/Time: 03/27/24 14:20
[2024-03-27] MEDS: Labetalol (Prefilled) 20 MG/4 ML 10 MG IV (11:43)
--- NOTE | 2024-03-27 11:59 | RAD_ITS ---
STUDY: X-RAY CHEST REASON FOR EXAM: Female, 69 years old. Shortness of breath. TECHNIQUE: Frontal and lateral views of the chest. COMPARISON: March 19, 2024 FINDINGS: Stable low volume inspiration with minimal bibasilar atelectasis, right greater than left. There is no demonstrated pleural abnormality. Cardiomegaly unchanged. Normal mediastinum and khai. Normal visualized pulmonary arteries. Stable aortic tortuosity. Thoracic osteopenia with diffuse moderate thoracic spondylosis unchanged. Normal visualized ribs, clavicles, and shoulders. No abnormality of the visualized soft tissue structures of the upper abdomen. RAD/Chest PA and Lateral IMPRESSION: Stable chest with no acute or active cardiopulmonary disease. Electronically Signed: Sterling Casanova MD at 12:34 EDT ,
[2024-03-27 12:00] LABS: Absolute Lymphocyte Count 2.77 X10^3/uL (0.83-4.51); Absolute Neutrophil Count 5.9 X10^3/uL (2.0-7.7); Basophil# 0.04 X10^3/uL; Basophil% 0.4 % (0-1); Eosinophil# 0.52 X10^3/uL; Eosinophils% 5.2 % (0-5); Hematocrit 40.7 % (37-47); Hemoglobin 12.6 g/dL (12.0-15.0); Lymphocyte # 2.77 X10^3/ul (0.83-4.51); Lymphocyte % 27.8 % (19-41); Mean Corpuscular Hgb 26.1 pg (27.0-32.0); Mean Corpuscular Volume 84.4 fL (81-99); Monocyte# 0.66 X10^3/uL; Monocyte% 6.6 % (0-10); NRBC Flagged by Analyzer 0 % (0-5); Neutrophil # 5.93 X10^3/uL (2.7-7.7); Neutrophil % 59.5 % (47-70); Platelet Count 307 K/mm3 (150-450); RBC Distribution Width CV 15.9 % (11.6-14.6); RBC Distribution Width SD 49.1 fl (35.1-43.9); Red Blood Count 4.82 M/mm3 (4.2-5.4)
[2024-03-27 12:05] LABS: Anion Gap 5 (5-15); BUN 27 mg/dL (7-18); BUN/Creat Ratio 24.5 RATIO (10-20); Calcium,Total 10.1 mg/dL (8.5-10.1); Chloride 108 mmol/L (98-107); EST Glomerular Filtration Rate 52 mL/min (>60); Est Glom Filt Rate - Afr Amer 63 mL/min (>60); Glucose 56 mg/dL (74-106); Potassium 3.4 mmol/L (3.5-5.1); Sodium Level 141 mmol/L (136-145); Troponin-I HS 24 pg/mL (3.0-54.0)
[2024-03-27] MEDS: Metoprolol Tartrate 25 MG Tablet 12.5 MG PO (13:20)
== END 2024-03-27 14:20 | disposition home or self-care (01) ==
PROVIDERS: Emergency Provider Emergency Medicine; PCP Internal Medicine; Visit Provider Emergency Medicine
DX: I12.9 Hypertensive chronic kidney disease with stage 1 through stage 4 chronic kidney disease, or unspecified chronic kidney disease (principal); E11.22 Type 2 diabetes mellitus with diabetic chronic kidney disease; N18.30 Chronic kidney disease, stage 3 unspecified; E87.6 Hypokalemia; E78.00 Pure hypercholesterolemia, unspecified; Z79.899 Other long term (current) drug therapy; K21.9 Gastro-esophageal reflux disease without esophagitis; R51.9 Headache, unspecified; R07.9 Chest pain, unspecified; R06.00 Dyspnea, unspecified
CPT/HCPCS: 71046; 80048; 84484; 85025; 93005; 96374; 99283; A4216

== ENCOUNTER → 2024-04-12 | Outpatient (CLI) | payer MEDICARE, SELFPAY ==
[2024-04-12 17:02] LABS: Anion Gap 5 (5-15); BUN 25 mg/dL (7-18); BUN/Creat Ratio 19.2 RATIO (10-20); Calcium,Total 11.1 mg/dL (8.5-10.1); Chloride 105 mmol/L (98-107); EST Glomerular Filtration Rate 43 mL/min (>60); Est Glom Filt Rate - Afr Amer 52 mL/min (>60); Glucose 149 mg/dL (74-106); Potassium 5.5 mmol/L (3.5-5.1); Sodium Level 137 mmol/L (136-145); Uric Acid 7.9 mg/dL (2.6-6.0)
[2024-04-13 12:47] LABS: Cholesterol 247 mg/dL (200); High Density Lipoprotein 50 mg/dL; Triglycerides 259 mg/dL; Very Low Density Lipoprotein 52 mg/dL (5-40)
== END | disposition home or self-care (01) ==
LOC: BIMLAB 15:05
PROVIDERS: Physician Assistant; PCP Internal Medicine; Referring Provider Internal Medicine; Visit Provider Internal Medicine
DX: M10.9 Gout, unspecified (principal); E78.5 Hyperlipidemia, unspecified
CPT/HCPCS: 36415; 80048; 80061; 84550

== ENCOUNTER 2024-04-17 09:45 | Outpatient (RCR) | payer MEDICARE, SELFPAY ==
[2024-03-26 00:08] VITALS: BP 140/84; PULSE 73; RESP 18; TEMP 35.9; BMI 38.5
[2024-03-27 09:36] VITALS: BP 183/117; PULSE 95; RESP 18; TEMP 36.2; BMI 38.5
[2024-03-27 09:47] VITALS: BP 192/120; BMI 38.5
--- NOTE | 2024-03-27 10:31 | PN.PCM_ITS ---
History of Present Illness Date of Service: 03/27/24 Progress of Wound: Patient history of bilateral lower extremity swelling in setting of lymphedema. 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 Patient is anticoagulated with Eliquis currently. Patient denies any chest pain calf pain shortness of breath. Patient has no open wounds at current. Objective Data Objective Data Vital Signs: Vital Signs Temp Pulse Resp BP O2 Del Method 97.2 F L 95 18 192/120 H Room Air 03/27/24 09:36 03/27/24 09:36 03/27/24 09:36 03/27/24 09:47 03/27/24 09:36 Oxygen Delivery Method Room Air Weight: 92.533 kg Body Mass Index (BMI) 38.5 Physical Exam Narrative Vascular: Dorsalis pedis posterior tibial pulses palpable 2 out of 4. Capillary fill time brisk to all digits bilaterally. Digital hair growth noted bilateral feet. +2 pitting edema to bilateral lower extremity marked at HARDIK malleoli region. Neurologic: Light touch protective sensation intact bilateral feet. Dermatologic: No open wounds. Skin well-hydrated and intact. Musculoskeletal: No pain with calf squeeze. Muscular strength full to bilateral lower extremity compartments. No wound forming deformities noted. 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 ) Arrival Mode Ambulatory,Cane Patient Identification Verified (Name & Yes ) Finger Stick Blood Sugar(mg/dl) (if 129 indicated): Blood Sugar Stated by Patient Height and Weight Body Mass Index (BMI) 38.5 38.5 BMI Classification Obese Obese Vital Signs Temperature (97.8 F-99.1 F) 97.2 F L Temperature Source Temporal Pulse Rate (60-100) 95 Pulse Location Monitor Respiratory Rate (12-18) 18 Respiratory rate source Observation Oxygen Delivery Method Room Air Blood Pressure (90/60-120/80) 183/117 H 192/120 H Blood Pressure Mean (mm Hg) 139 144 Source Monitor Manual Position Semi-Fowlers Semi-Fowlers Blood Pressure Location Left Arm Left Arm History Since Last Visit- (Skip if this is Patient's initial visit) Have you changed medications since your No last visit? Any new allergies or adverse reactions No Had a fall/change in ADL's that may No increase risk of falls Signs or symptoms of abuse and/or No neglect since last visit Have you been in the hospital since your No last visit? Has dressing in place as prescribed No Has compression in place as prescribed Yes Has offloadiing in place as prescribed N/A Experienced any changes in pain level or No management Pain Scale: 0-10 Numeric Is Patient Pain Free? Yes No headache -Description Dull -Intensity 5 -Pain Behavior VS Changes -Alleviating Factors/Interventions None -Comments Patient was strongly encouraged to report to ER for elevated BP . - Nurse 2 - General Ulcer CM Notes Start: 03/27/24 09:36 Freq: Status: Active Protocol: Activity Type Activity Date Activity User E-sign Co-sign Detail Recorded Client Recorded Date Recorded By Document 03/27/24 10:06 [id number] 03/27/24 10:07 03/27/24 10:06 Pain Scale: 0-10 Numeric Is Patient Pain Free? Yes - Nurse 3 - General Ulcer D/C NN Start: 03/27/24 09:36 Freq: Status: Active Protocol: Activity Type Activity Date Activity User E-sign Co-sign Detail Recorded Client Recorded Date Recorded By Document 03/27/24 09:51 JF [id number] 03/27/24 09:52 03/27/24 09:51 Wound Care Center Nurse 3 Right -Tubular Bandage Double Layer -Size of Tubigrip Used Size E -Size E ($) 2 Left -Tubular Bandage Double Layer -Size of Tubigrip Used Size E -Size E ($) 2 Pain Scale: 0-10 Numeric Is Patient Pain Free? Yes WC - Visit Discharge Discharge Condition Stable Ambulatory Status Ambulatory Transportation Private Auto Medication Reconcilliation completed & Yes provided to patient/care provider Clinical Summary of Care Provided Yes Notes: Patient verbalizes understanding to report to ER , no squad needed per Dr Keene. Patient drove herself here and okay to drive to ER herself. She is by herself. Assessment/Plan Assessment/Plan (1) Lymphedema, not elsewhere classified: CODE(S): I89.0 - Lymphedema, not elsewhere classified PLAN: Exam performed Patient has bilateral lymphedema. Will plan for lymphedema pumps. Today swelling is improved with compression elevation and exercise. Patient has compression stockings at home has difficulty wearing. Will plan for compression and elevation exercise for edema management. At current we will plan for double Tubigrip to bilateral lower extremity. Patient follow-up weekly. Due to blood pressure greater than 180/110 and headache as well as blurred vision I recommended ER visit.
[2024-04-17 10:38] VITALS: BP 134/70; PULSE 97; RESP 18; TEMP 36.2; BMI 38.5
--- NOTE | 2024-04-17 11:00 | PCM.WC.PN ---
History of Present Illness Date of Service: 04/17/24 Progress of Wound: Patient history of bilateral lower extremity swelling in setting of lymphedema. 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 Patient is anticoagulated with Eliquis currently. Patient denies any chest pain calf pain shortness of breath. Patient has no open wounds at current. Objective Data Objective Data Vital Signs: Vital Signs Temp Pulse Resp BP O2 Del Method 97.1 F L 97 18 134/70 H Room Air 04/17/24 10:38 04/17/24 10:38 04/17/24 10:38 04/17/24 10:38 04/17/24 10:38 Oxygen Delivery Method Room Air Weight: 92.533 kg Body Mass Index (BMI) 38.5 Physical Exam Narrative Vascular: Dorsalis pedis posterior tibial pulses palpable 2 out of 4. Capillary fill time brisk to all digits bilaterally. Digital hair growth noted bilateral feet. +2 pitting edema to bilateral lower extremity marked at HARDIK malleoli region. Neurologic: Light touch protective sensation intact bilateral feet. Dermatologic: No open wounds. Skin well-hydrated and intact. Musculoskeletal: No pain with calf squeeze. Muscular strength full to bilateral lower extremity compartments. No wound forming deformities noted. Debridement Note Debridement Note Post-Debridement Measurements and Additional Note: Post-Debridement Measurements/Treatment - Nurse 1 - General Ulcer Assessment Start: 03/27/24 09:36 Freq: Status: Active Protocol: .LOWEXT Activity Type Activity Date Activity User E-sign Co-sign Detail Recorded Client Recorded Date Recorded By Document 03/27/24 09:36 KW z 03/27/24 09:41 KW Document 03/27/24 09:47 [id number] 03/27/24 09:49 JF Document 04/17/24 10:38 DS 1 04/17/24 10:41 DS 03/27/24 03/27/24 04/17/24 09:36 09:47 10:38 - Today's Visit Information Type of service Follow-up Visit Follow-up Visit (Physician/OUTREACH DIRECTOR (Physician/OUTREACH DIRECTOR ) ) Arrival Mode Ambulatory,Cane Ambulatory Patient Identification Verified (Name & Yes ) Safety Precautions Fall Prevention Finger Stick Blood Sugar(mg/dl) (if 129 indicated): Blood Sugar Stated by Patient Height and Weight Body Mass Index (BMI) 38.5 38.5 38.5 BMI Classification Obese Obese Obese Vital Signs Temperature (97.8 F-99.1 F) 97.2 F L 97.1 F L Temperature Source Temporal Temporal Pulse Rate (60-100) 95 97 Pulse Location Monitor Monitor Respiratory Rate (12-18) 18 18 Respiratory rate source Observation Observation Oxygen Delivery Method Room Air Room Air Blood Pressure (90/60-120/80) 183/117 H 192/120 H 134/70 H Blood Pressure Mean (mm Hg) 139 144 91 Source Monitor Manual Monitor Position Semi-Fowlers Semi-Fowlers Sitting Blood Pressure Location Left Arm Left Arm Right Arm History Since Last Visit- (Skip if this is Patient's initial visit) Have you changed medications since your No Yes last visit? Any new allergies or adverse reactions No No Had a fall/change in ADL's that may No No increase risk of falls Signs or symptoms of abuse and/or No No neglect since last visit Have you been in the hospital since your No Yes last visit? Has dressing in place as prescribed No Yes Has compression in place as prescribed Yes Yes Has offloadiing in place as prescribed N/A N/A Experienced any changes in pain level or No No management Left Footwear Regular Shoe Right Footwear Regular Shoe Pain Scale: 0-10 Numeric Is Patient Pain Free? Yes No Yes headache -Description Dull -Intensity 5 -Pain Behavior VS Changes -Alleviating Factors/Interventions None -Comments Patient was strongly encouraged to report to ER for elevated BP . WC - Nurse 1 - General Ulcer Measurement Start: 03/27/24 09:36 Freq: Status: Active Protocol: Activity Type Activity Date Activity User E-sign Co-sign Detail Recorded Client Recorded Date Recorded By Document 04/17/24 10:38 DS 1 04/17/24 10:41 DS 04/17/24 10:38 Wound Center Nurse 1 Right Calf (cm) 38.0 Right Ankle (cm) 22.5 Left Calf (cm) 35.8 Left Ankle (cm) 21.5 WC - Nurse 2 - General Ulcer CM Notes Start: 03/27/24 09:36 Freq: Status: Active Protocol: Activity Type Activity Date Activity User E-sign Co-sign Detail Recorded Client Recorded Date Recorded By Document 03/27/24 10:06 [id number] 03/27/24 10:07 JF Document 04/17/24 10:53 JF 0000 04/17/24 10:53 03/27/24 04/17/24 10:06 10:53 Pain Scale: 0-10 Numeric Is Patient Pain Free? Yes Yes - Nurse 3 - General Ulcer D/C NN Start: 03/27/24 09:36 Freq: Status: Active Protocol: Activity Type Activity Date Activity User E-sign Co-sign Detail Recorded Client Recorded Date Recorded By Document 03/27/24 09:51 [id number] 03/27/24 09:52 03/27/24 09:51 Wound Care Center Nurse 3 Right -Tubular Bandage Double Layer -Size of Tubigrip Used Size E -Size E ($) 2 Left -Tubular Bandage Double Layer -Size of Tubigrip Used Size E -Size E ($) 2 Pain Scale: 0-10 Numeric Is Patient Pain Free? Yes WC - Visit Discharge Discharge Condition Stable Ambulatory Status Ambulatory Transportation Private Auto Medication Reconcilliation completed & Yes provided to patient/care provider Clinical Summary of Care Provided Yes Notes: Patient verbalizes understanding to report to ER , no squad needed per Dr Keene. Patient drove herself here and okay to drive to ER herself. She is by herself. Assessment/Plan Assessment/Plan (1) Lymphedema, not elsewhere classified: CODE(S): I89.0 - Lymphedema, not elsewhere classified PLAN: Exam performed Patient has bilateral lymphedema. Will plan for lymphedema pumps. Today swelling is improved with compression elevation and exercise. Patient has compression stockings at home has difficulty wearing. Will plan for compression and elevation exercise for edema management. At current we will plan for double Tubigrip to bilateral lower extremity. Patient follow-up weekly.
== END 2024-04-25 23:59 | disposition home or self-care (01) ==
LOC: WC 09:45
PROVIDERS: PCP Internal Medicine; Referring Provider Podiatrist; Visit Provider Podiatrist
DX: I89.0 Lymphedema, not elsewhere classified (principal); Z79.01 Long term (current) use of anticoagulants; Z86.718 Personal history of other venous thrombosis and embolism; Z86.711 Personal history of pulmonary embolism
CPT/HCPCS: 99213; G0463

== ENCOUNTER → 2024-05-03 | Outpatient (CLI) | payer MEDICARE, SELFPAY ==
[2024-05-03 17:00] LABS: BNP,B-Type NATRIURETIC PEPTIDE 3.7 pg/mL (0-100)
[2024-05-03 17:00] LABS: PTHIN 246.7 pg/mL (18.4-80.1)
[2024-05-03 17:04] LABS: Vitamin D,25 Hydroxy 59.3 ng/mL
[2024-05-03 17:06] LABS: ALB/GLOB Ratio 0.8 RATIO (0.9-2.4); AST(SGOT) 40 U/L (15-37); Alanine Aminotransfer ALT/SGPT 32 U/L (13-56); Albumin, Serum 3.2 g/dL (3.2-5.0); Alkaline Phosphatase 146 U/L (45-117); Anion Gap 4 (5-15); BUN 27 mg/dL (7-18); BUN/Creat Ratio 19.7 RATIO (10-20); Calcium,Total 10.4 mg/dL (8.5-10.1); Chloride 110 mmol/L (98-107); Creatinine, Serum 1.37 mg/dL (0.55-1.02); EST Glomerular Filtration Rate 41 mL/min (>60); Est Glom Filt Rate - Afr Amer 49 mL/min (>60); Globulin 3.8 g/dL (2.2-4.2); Glucose 121 mg/dL (74-106); Potassium 4.5 mmol/L (3.5-5.1); Sodium Level 139 mmol/L (136-145)
== END | disposition home or self-care (01) ==
LOC: BIMLAB 15:24
PROVIDERS: Nurse Practitioner Family; PCP Internal Medicine; Referring Provider Internal Medicine; Visit Provider Internal Medicine
DX: I50.9 Heart failure, unspecified (principal); E83.52 Hypercalcemia
CPT/HCPCS: 36415; 80053; 82306; 83880; 83970

== ENCOUNTER → 2024-05-08 | Outpatient (CLI) | payer MEDICARE, SELFPAY ==
[2024-05-08 13:29] LABS: PTHIN 455.4 pg/mL (18.4-80.1)
[2024-05-08 13:36] LABS: Vitamin D,25 Hydroxy 60.7 ng/mL
[2024-05-08 15:08] LABS: Protein, Urine (Random) 65.1 mg/dL (<11.9); Protein:Creat Ratio 1695 mg/g CRE (0-200)
[2024-05-10 13:08] LABS: ANTINUCLEAR ANTIBODIES DIRECT Negative (Negative)
== END | disposition home or self-care (01) ==
LOC: LAB 12:39
PROVIDERS: PCP Internal Medicine; Referring Provider Internal Medicine Nephrology; Visit Provider Internal Medicine Nephrology
DX: E83.52 Hypercalcemia (principal); R80.9 Proteinuria, unspecified
CPT/HCPCS: 36415; 82306; 82570; 83970; 84156; 86038

== ENCOUNTER 2024-05-15 10:04 | Outpatient (RCR) | payer MEDICARE, SELFPAY ==
[2024-04-26 00:33] VITALS: BP 140/84; PULSE 73; RESP 18; TEMP 35.9; BMI 38.5
[2024-05-15 10:47] VITALS: BP 122/83; PULSE 87; RESP 18; TEMP 35.4; BMI 38.5
--- NOTE | 2024-05-15 11:34 | PN.PCM_ITS ---
History of Present Illness Date of Service: 04/17/24 Progress of Wound: Patient history of bilateral lower extremity swelling in setting of lymphedema. 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 Patient is anticoagulated with Eliquis currently. Patient denies any chest pain calf pain shortness of breath. Patient has no open wounds at current. Objective Data Objective Data Vital Signs: Vital Signs Temp Pulse Resp BP 95.8 F L 87 18 122/83 H 05/15/24 10:47 05/15/24 10:47 05/15/24 10:47 05/15/24 10:47 Weight: 92.533 kg Body Mass Index (BMI) 38.5 Physical Exam Narrative Vascular: Dorsalis pedis posterior tibial pulses palpable 2 out of 4. Capillary fill time brisk to all digits bilaterally. Digital hair growth noted bilateral feet. Resolved pitting edema to bilateral lower extremity marked at HARDIK malleoli region. Neurologic: Light touch protective sensation intact bilateral feet. Dermatologic: No open wounds. Skin well-hydrated and intact. Musculoskeletal: No pain with calf squeeze. Muscular strength full to bilateral lower extremity compartments. No wound forming deformities noted. Debridement Note Debridement Note Post-Debridement Measurements and Additional Note: Post-Debridement Measurements/Treatment - Nurse 1 - General Ulcer Assessment Start: 05/15/24 10:47 Freq: Status: Active Protocol: [email or web address].[email or web address] Activity Type Activity Date Activity User E-sign Co-sign Detail Recorded Client Recorded Date Recorded By Document 05/15/24 10:47 DARRELL [id number] 05/15/24 10:49 DARRELL 05/15/24 10:47 - Today's Visit Information Type of service Follow-up Visit (Physician/PUBLIC TRANSIT SPECIALIST ) Arrival Mode Ambulatory Transfer Assistance None,Other Patient Identification Verified (Name & Yes ) Patient Requires Transmission-Based No Precautions Height and Weight Body Mass Index (BMI) 38.5 BMI Classification Obese Vital Signs Temperature (97.8 F-99.1 F) 95.8 F L Temperature Source Temporal Pulse Rate (60-100) 87 Pulse Location Monitor Respiratory Rate (12-18) 18 Respiratory rate source Observation Blood Pressure (90/60-120/80) 122/83 H Blood Pressure Mean (mm Hg) 96 Source Monitor Position Semi-Fowlers Blood Pressure Location Right Arm History Since Last Visit- (Skip if this is Patient's initial visit) Have you changed medications since your No last visit? Any new allergies or adverse reactions No Had a fall/change in ADL's that may No increase risk of falls Signs or symptoms of abuse and/or No neglect since last visit Have you been in the hospital since your No last visit? Has dressing in place as prescribed No Has compression in place as prescribed Yes Has offloadiing in place as prescribed No Experienced any changes in pain level or No management Pain Scale: 0-10 Numeric Is Patient Pain Free? Yes - Nurse 1 - General Ulcer Measurement Start: 05/15/24 10:47 Freq: Status: Active Protocol: Activity Type Activity Date Activity User E-sign Co-sign Detail Recorded Client Recorded Date Recorded By Document 05/15/24 10:47 RB [id number] 05/15/24 10:49 RB 05/15/24 10:47 Wound Center Nurse 1 Lower Limb Edema Present Yes Right Calf (cm) 38.5 Right Ankle (cm) 22 Left Calf (cm) 36.5 Left Ankle (cm) 22 - Nurse 2 - General Ulcer CM Notes Start: 05/15/24 10:47 Freq: Status: Active Protocol: Activity Type Activity Date Activity User E-sign Co-sign Detail Recorded Client Recorded Date Recorded By Document 05/15/24 11:21 JF [id number] 05/15/24 11:22 JF 05/15/24 11:21 Pain Scale: 0-10 Numeric Is Patient Pain Free? Yes - Nurse 3 - General Ulcer D/C NN Start: 05/15/24 10:47 Freq: Status: Active Protocol: Activity Type Activity Date Activity User E-sign Co-sign Detail Recorded Client Recorded Date Recorded By Document 05/15/24 11:32 KW [id number] 05/15/24 11:32 KW 05/15/24 11:32 Wound Care Center Nurse 3 Right -Tubular Bandage Single Layer -Size of Tubigrip Used Size D -Size D ($) 1 Left -Tubular Bandage Single Layer -Size of Tubigrip Used Size D -Size D ($) 1 Pain Scale: 0-10 Numeric Is Patient Pain Free? Yes Assessment/Plan Assessment/Plan (1) Lymphedema, not elsewhere classified: CODE(S): I89.0 - Lymphedema, not elsewhere classified PLAN: Exam performed Patient has bilateral lymphedema. Will plan for lymphedema pumps. Today swelling is improved with compression elevation and exercise. Patient has compression stockings at home has difficulty wearing. Will plan for compression and elevation exercise for edema management. Patient has received lymphedema pumps and using daily. Patient initially was using 3 times a day but noted some fluid accumulation in the lungs. She has since decreased to 1 time a day and is taking a diuretic per primary care doctor. As there is resolution of fluid accumulation patient will increase usage of lymphedema pumps. Other than that I recommend continued use of compression stockings with elevation and exercise management. Patient follow-up weekly.
== END 2024-05-26 23:59 | disposition home or self-care (01) ==
LOC: WC 10:04
PROVIDERS: PCP Internal Medicine; Referring Provider Podiatrist; Visit Provider Podiatrist
DX: I89.0 Lymphedema, not elsewhere classified (principal); Z79.01 Long term (current) use of anticoagulants; Z86.718 Personal history of other venous thrombosis and embolism; Z86.711 Personal history of pulmonary embolism
CPT/HCPCS: 99212; G0463

== ENCOUNTER → 2024-05-22 | Outpatient (CLI) | payer MEDICARE, SELFPAY ==
--- NOTE | 2024-05-22 09:57 | US_ITS ---
STUDY: ABDOMINAL ULTRASOUND REASON FOR EXAM: Female, 69 years old. ABD PAIN TECHNIQUE: Transabdominal ultrasound was performed with real-time and static monzon scale imaging. TECHNICAL QUALITY: Adequate. COMPARISON: Comparison is made with prior study January 11, 2023. FINDINGS: Liver: The liver measures 16.5 cm. There is increased echogenicity consistent with fatty infiltration. The bile ducts are within normal limits. There is hepatic color flow. The direction of portal flow is hepatopetal. There is no demonstrated mass lesion. Gallbladder: The patient is status post cholecystectomy. Common Bile Duct (C.B.D.): The common bile duct measures 4.3 mm. Pancreas: Normal size of the head, body and tail of the pancreas. There is normal echogenicity of the pancreas. There is no demonstrated pancreatic mass or cyst. Spleen: Normal size of the spleen. The spleen measures 12 cm x 5.8 cm x 5.8 cm. Right Kidney: Normal size of the right kidney. The right kidney measures 10.1 cm x 4.6 cm x 4.7 cm. Normal renal cortex. The right cortex measures 1.2 cm. There is a 1.4 cm x 1.3 cm x 1.1 cm cyst. There is no right hydronephrosis. Left Kidney: Normal size of the left kidney. The left kidney measures 9.1 cm x 4.7 cm x 5.2 cm. Normal renal cortex. The left cortex measures 1.1 cm. There is a 1.2 cm x 1.4 cm x 1.2 cm cyst in the lower pole. There is no left hydronephrosis. There is a 5 mm x 6 mm x 5 mm nonobstructive calculus. Aorta: Unremarkable I.V.C.: The IVC is patent. There is no ascites. US/Abdomen Complete IMPRESSION: Fatty infiltration of the liver. Status post cholecystectomy. Small bilateral renal cysts. Nonobstructive, this in the left kidney. Electronically Signed: Bernardo Queen MD at 14:24 EDT ,
== END | disposition home or self-care (01) ==
LOC: US 09:54
PROVIDERS: PCP Internal Medicine
DX: G47.33 Obstructive sleep apnea (adult) (pediatric) (principal); E66.01 Morbid (severe) obesity due to excess calories; E11.9 Type 2 diabetes mellitus without complications; I10 Essential (primary) hypertension; K21.9 Gastro-esophageal reflux disease without esophagitis; R10.84 Generalized abdominal pain
CPT/HCPCS: 76700

== ENCOUNTER → 2024-06-04 | Outpatient (CLI) | payer MEDICARE, SELFPAY ==
--- NOTE | 2024-06-04 09:01 | NM_ITS ---
CLINICAL: 69-year-old female with history of clinical hyperparathyroidism. 99m Tc SESTAMIBI DUAL PHASE PARATHYROID SCINTIGRAPHY COMPARISON: None available FINDINGS: Following the intravenous administration of 28.0 mCi of 99m Tc sestamibi, image acquisitions of the anterior neck at 15 minutes and 3.0 hours post radiopharmaceutical provision reveal: 1. Immediate static blood pool acquisitions demonstrate minimal visualization of the radiopharmaceutical in the left and to a lesser extent right lobe thyroid colloid. 2. Delayed images depict washout of the radiotracer from the previously defined right and left thyroid beds without evidence of focal retention on delayed imaging. NM/Parathyroid Scan IMPRESSION: 1. NEGATIVE 99m Tc SESTAMIBI PARATHYROID IMAGING DUAL PHASE EXAMINATION. 2. There is no scintigraphic evidence of parathyroid adenoma on the present evaluation. Electronically Signed: Haja Winn DO at 10:33 EDT ,
== END | disposition home or self-care (01) ==
LOC: NM 08:55
PROVIDERS: PCP Internal Medicine; Referring Provider Internal Medicine Nephrology; Visit Provider Internal Medicine Nephrology
DX: E21.3 Hyperparathyroidism, unspecified (principal)
CPT/HCPCS: 78070; A9500

== ENCOUNTER → 2024-06-20 | Outpatient (CLI) | payer MEDICARE, SELFPAY ==
[2024-06-20 16:25] LABS: Albumin, Serum 3.2 g/dL (3.2-5.0); BUN 52 mg/dL (7-18); BUN/Creat Ratio 29.5 RATIO (10-20); Calcium,Total 10.7 mg/dL (8.5-10.1); Chloride 110 mmol/L (98-107); Creatinine, Serum 1.76 mg/dL (0.55-1.02); EST Glomerular Filtration Rate 30 mL/min (>60); Est Glom Filt Rate - Afr Amer 37 mL/min (>60); Glucose 109 mg/dL (74-106); Phosphorus 4.1 mg/dL (2.5-4.9); Potassium 5.2 mmol/L (3.5-5.1); Sodium Level 140 mmol/L (136-145)
== END | disposition home or self-care (01) ==
LOC: LAB 13:54
PROVIDERS: PCP Internal Medicine; Referring Provider Internal Medicine Nephrology; Visit Provider Internal Medicine Nephrology
DX: N18.32 Chronic kidney disease, stage 3b (principal)
CPT/HCPCS: 36415; 80069

== ENCOUNTER → 2024-06-26 | Outpatient (CLI) | payer MEDICARE, SELFPAY ==
--- NOTE | 2024-06-26 08:07 | MRI_ITS ---
EXAM: MR ABDOMEN WITHOUT AND WITH INTRAVENOUS CONTRAST CLINICAL INDICATION: RENAL MASS,CYST, COMPARE TO ULTRASOUND TECHNIQUE: Multiplanar and multisequence MR images of the abdomen without and with intravenous contrast. CONTRAST: IV 30ML CLARISCAN COMPARISON: No relevant prior studies available. FINDINGS: LOWER THORAX: Normal. No pleural effusion. LIVER: Liver is mildly prominent in size without focal space-occupying lesion. GALLBLADDER AND BILE DUCTS: Cholecystectomy. No intra- or extrahepatic biliary ductal dilation. PANCREAS: Normal. No focal cystic or solid mass. SPLEEN: Spleen is top normal size. ADRENALS: Normal. No nodules. KIDNEYS AND URETERS: Several small bilateral simple appearing renal cysts are noted largest one measuring 15 mm within the upper pole of the left kidney. An additional 8 mm nonenhancing lesion within the upper pole of the left kidney demonstrating increased T1 signal intensity suggestive of complex cyst related to hemorrhage or proteinaceous material. No solid or contrast enhancing renal masses identified. Normal renal size and position. INTRAPERITONEAL SPACE: Normal. No ascites or other fluid collection. No free air. VASCULATURE: Normal. Abdominal aorta is non-dilated. LYMPH NODES: No enlarged lymph nodes. MRI/MRI Abd WITH and W/O Contrast IMPRESSION: 1. No evidence of a solid renal mass. 2. Mild hepatomegaly. Electronically Signed: Oscar Snider MD at 16:09 EDT ,
[2024-06-26 08:56] LABS: CREATININE FINGERSTICK 1.4 mg/dL (0.55-1.02)
== END | disposition home or self-care (01) ==
LOC: MRI 08:00
PROVIDERS: PCP Internal Medicine
DX: Z01.812 Encounter for preprocedural laboratory examination (principal); N28.1 Cyst of kidney, acquired
CPT/HCPCS: 74183; A9575

== ENCOUNTER → 2024-06-29 | Outpatient (CLI) | payer MEDICARE, SELFPAY ==
--- NOTE | 2024-06-29 12:48 | ECHOD_ITS ---
Reason For Study: CHF Procedure This was a 2D Doppler, Color Flow transthoracic echocardiogram. Exam performed in department. Left Ventricle Normal LV size. The estimated ejection fraction is 60 %. No evidence for diastolic dysfunction. No regional wall motion abnormalities noted. Right Ventricle Normal RV size. Normal systolic function. Atria The left and right atria are normal. No doppler evidence for ASD. Mitral Valve There is no mitral valve stenosis. No mitral valve insufficiency. Tricuspid Valve There is no tricuspid stenosis. Unable to estimate RV systolic pressure due to inadequate jet, pulmonary artery pressure probably normal. Aortic Valve Trisinus/trileaflet aortic valve. There is no aortic stenosis. No aortic valve insufficiency. Pulmonic Valve There is no pulmonic valvular stenosis. No pulmonic valve insufficiency. Great Vessels Normal aortic root. Pericardium/Pleural No pericardial effusion. MMode/2D Measurements & Calculations LVIDd: 3.9 cm IVSd: 0.88 cm Ao root diam: 3.0 cm LVIDs: 2.8 cm LVPWd: 0.99 cm RVDd: 3.1 cm FS: 28.9 % LAV(MOD-bp): 25.7 ml LVAd ap4: 27.7 cm2 SV(MOD-sp4): 46.2 ml LAV(MOD-bp) Indexed: 12.8 ml/m2 LVLd ap4: 8.1 cm LAV(MOD-sp2): 27.4 ml EDV(MOD-sp4): 80.2 ml LAV(MOD-sp4): 24.7 ml EDV(sp4-el): 79.9 ml LVAs ap4: 15.2 cm2 LVLs ap4: 6.1 cm ESV(MOD-sp4): 34.0 ml ESV(sp4-el): 32.3 ml EF(MOD-sp4): 57.6 % EF(sp4-el): 59.6 % SV(sp4-el): 47.6 ml LA A4 area: 11.8 cm2 LA dimension(2D): 3.2 cm RA A4 area: 10.1 cm2 TAPSE: 2.3 cm Time Measurements MV dec time: 0.24 sec Doppler Measurements & Calculations MV E max sae: 69.8 cm/sec Lat Peak E' Sae: 10.5 cm/sec Med Peak E' Sae: 7.8 cm/sec MV A max sae: 102.7 cm/sec E/E' lat: 6.6 E/E' med: 8.9 MV E/A: 0.68 Ao V2 max: 130.4 cm/sec LV V1 max: 118.0 cm/sec PA V2 max: 123.6 cm/sec Ao max P.8 mmHg LV V1 max P.6 mmHg TR max sae: 266.6 cm/sec TR max P.4 mmHg ECHO/Echo Complete Interpretation Summary The estimated ejection fraction is 60 %. No evidence for diastolic dysfunction. Ordering Physician: Vamsi Epperson Referring Physician: Vamsi Epperson Performed By: Stephanie Arredondo, RDCOCO
== END | disposition home or self-care (01) ==
LOC: CVS 12:42
PROVIDERS: PCP Internal Medicine; Referring Provider Internal Medicine; Visit Provider Internal Medicine
DX: R06.02 Shortness of breath (principal)
CPT/HCPCS: 93306

== ENCOUNTER → 2024-07-02 | Outpatient (CLI) | payer MEDICARE, SELFPAY ==
--- NOTE | 2024-07-02 14:42 | CT_ITS ---
STUDY: CT ABDOMEN AND PELVIS WITH CONTRAST REASON FOR EXAM: Female, 69 years old. BARIATRIC SURGERY RADIATION DOSAGE (If Supplied By Facility): CTDIvol = ( 34.11 ) mGy, DLP = ( 1232.17 ) mGycm TECHNIQUE: Transaxial images were obtained from the dome of the diaphragm to the symphysis pubis without oral contrast. IV 95mL Isovue-300 was administered. Sagittal and coronal images were reconstructed. Individualized dose optimization techniques were used for this CT. COMPARISON: 2020 FINDINGS: There are chronic interstitial fibrotic changes of the lung bases. The visualized portions of the heart are within normal limits. Normal liver. There are surgical clips in the gallbladder fossa consistent with a prior cholecystectomy. Normal spleen, stable 1 cm accessory spleen again noted.. Normal pancreas. Normal bilateral adrenal glands. No obstructive uropathy, or suspicious solid renal lesion, there are stable renal cysts and a nonobstructing left renal stone. Normal visualized stomach. Normal small intestine. Retained stool noted throughout the colon. The appendix is visualized and appears normal. Appendix seen on coronal recon images 64 through 69. Normal abdominal aorta. Normal inferior vena cava. Normal retroperitoneum. Normal urinary bladder. Normal abdominal wall. There are diffuse degenerative changes of the visualized lumbar spine, and pelvis CT/Abdomen/Pelvis WITH Contrast IMPRESSION: No suspicious solid organ abnormality, stable simple renal cysts, nonobstructing left renal stone, no specific follow-up needed. Retained stool throughout the colon No free intraperitoneal fluid, air, or suspicious adenopathy, normal appendix visualized No significant interval change since 2020 Electronically Signed: Chencho Desai MD at 8:35 EDT ,
== END | disposition home or self-care (01) ==
LOC: CT 14:38
PROVIDERS: PCP Internal Medicine
DX: N28.1 Cyst of kidney, acquired (principal)
CPT/HCPCS: 74177; Q9967

== ENCOUNTER → 2024-08-06 | Outpatient (CLI) | payer MEDICARE, SELFPAY ==
[2024-08-06 15:45] LABS: ALB/GLOB Ratio 0.8 RATIO (0.9-2.4); AST(SGOT) 45 U/L (15-37); Alanine Aminotransfer ALT/SGPT 52 U/L (13-56); Albumin, Serum 3.4 g/dL (3.2-5.0); Alkaline Phosphatase 199 U/L (45-117); Anion Gap 6 (5-15); BUN 34 mg/dL (7-18); BUN/Creat Ratio 22.1 RATIO (10-20); Calcium,Total 11.1 mg/dL (8.5-10.1); Chloride 106 mmol/L (98-107); Creatinine, Serum 1.54 mg/dL (0.55-1.02); EST Glomerular Filtration Rate 35 mL/min (>60); Est Glom Filt Rate - Afr Amer 43 mL/min (>60); Globulin 4.3 g/dL (2.2-4.2); Glucose 83 mg/dL (74-106); Potassium 4.9 mmol/L (3.5-5.1); Protein, Total 7.7 g/dL (6.4-8.2); Sodium Level 139 mmol/L (136-145)
== END | disposition home or self-care (01) ==
LOC: BIMLAB 13:53
PROVIDERS: PCP Internal Medicine; Referring Provider Internal Medicine; Visit Provider Internal Medicine
DX: I10 Essential (primary) hypertension (principal); K75.81 Nonalcoholic steatohepatitis (NASH)
CPT/HCPCS: 36415; 80053

== ENCOUNTER 2024-08-08 07:35 | Outpatient (CLI) | payer MEDICARE, SELFPAY ==
--- NOTE | 2024-08-08 17:32 | STRESSREP ---
Stress Test Report Pharmacologic myocardial perfusion stress test. 69-year-old for preoperative cardiac evaluation Resting EKG demonstrates sinus rhythm with a rate of 73 bpm. Resting blood pressure is 132/82 mmHg. 0.4 mg of regadenoson was infused per usual protocol followed by rapid intravenous saline flush injection. Continuous EKG monitoring was performed. The maximum heart rate was 82 bpm which was 54% of max impacted heart rate the maximum workload was 1 metabolic equivalent. At rest there were no ST or T wave changes noted to suggest ischemia and at peak infusion nonspecific ST changes were noted which did not meet the criteria for ischemia. No clinical angina is noted. The final blood pressure was 118/78 mmHg. Myocardial perfusion protocol. 13 point mCi of technetium 99m sestamibi was injected at rest. 0.4 mg of regadenoson was infused per usual protocol. At peak infusion 44.1 mCi of technetium 99m sestamibi was injected stress images were obtained stress and rest images were reconstructed and compared in the short axis vertical long and horizontal long axis. Gated images were also obtained. Perfusion SPECT analysis: Review of the stress images demonstrate normal uptake of tracer noted in all areas of the myocardium. The resting images similar demonstrated normal uptake of tracer noted in all areas of the myocardium. No areas of reversibility are noted to suggest ischemia and no previous infarct is noted. Gated SPECT analysis: The gated ejection fraction is 68%. Conclusion: Normal pharmacologic myocardial perfusion stress test. Preserved ejection fraction.
== END 2024-08-08 23:59 | disposition home or self-care (01) ==
LOC: CVS 07:35
PROVIDERS: PCP Internal Medicine; Referring Provider Nurse Practitioner Gerontology; Visit Provider Nurse Practitioner Gerontology
DX: Z01.810 Encounter for preprocedural cardiovascular examination (principal)
CPT/HCPCS: 78452; 93017; A9500; A4216; J2785

== ENCOUNTER → 2024-09-03 | Outpatient (CLI) | payer MEDICARE, SELFPAY ==
[2024-09-03 12:22] LABS: Hematocrit 36.1 % (37-47); Hemoglobin 11.1 g/dL (12.0-15.0); Mean Corp Hgb Conc 30.7 g/dL (32-36); Mean Corpuscular Hgb 28.8 pg (27.0-32.0); Mean Corpuscular Volume 93.5 fL (81-99); Mean Platelet Vol. 12.9 fl (6.2-12.0); Platelet Count 161 K/mm3 (150-450); RBC Distribution Width CV 14.8 % (11.6-14.6); RBC Distribution Width SD 51.3 fl (35.1-43.9); Red Blood Count 3.86 M/mm3 (4.2-5.4); White Blood Count 9.5 K/mm3 (4.4-11.0)
[2024-09-03 12:38] LABS: Uric Acid 10.7 mg/dL (2.6-6.0)
[2024-09-03 12:48] LABS: Vitamin B12 616 pg/mL (211-911); Vitamin D,25 Hydroxy 26.3 ng/mL
[2024-09-03 12:52] LABS: ALB/GLOB Ratio 0.8 RATIO (0.9-2.4); AST(SGOT) 37 U/L (15-37); Alanine Aminotransfer ALT/SGPT 49 U/L (13-56); Albumin, Serum 3.1 g/dL (3.2-5.0); Alkaline Phosphatase 126 U/L (45-117); Anion Gap 4 (5-15); BUN 58 mg/dL (7-18); BUN/Creat Ratio 30.9 RATIO (10-20); Calcium,Total 10.4 mg/dL (8.5-10.1); Chloride 108 mmol/L (98-107); Cholesterol 184 mg/dL (200); Creatinine, Serum 1.88 mg/dL (0.55-1.02); EST Glomerular Filtration Rate 28 mL/min (>60); Est Glom Filt Rate - Afr Amer 34 mL/min (>60); Ferritin 35 ng/mL (8-252); Glucose 82 mg/dL (74-106); High Density Lipoprotein 47 mg/dL; Iron 27 ug/dL (50-170); Magnesium 2.2 mg/dL (1.6-2.6); Phosphorus 2.6 mg/dL (2.5-4.9); Potassium 5.1 mmol/L (3.5-5.1); Protein, Total 7.1 g/dL (6.4-8.2); Sodium Level 139 mmol/L (136-145); Triglycerides 208 mg/dL; Very Low Density Lipoprotein 42 mg/dL (5-40)
[2024-09-03 13:33] LABS: Hemoglobin A1c 6.3 % (3.8-5.6)
[2024-09-13 10:07] LABS: Cotinine Screen Blood <1.0 ng/mL (.); Nicotine Blood <1.0 ng/mL (.); Vitamin B1, Thiamine 123.7 nmol/L (66.5-200.0); Zinc, Plasma or Serum 111 ug/dL (44-115)
== END | disposition home or self-care (01) ==
LOC: BIMLAB 11:04
PROVIDERS: PCP Internal Medicine
DX: Z01.812 Encounter for preprocedural laboratory examination (principal); E66.01 Morbid (severe) obesity due to excess calories; E11.22 Type 2 diabetes mellitus with diabetic chronic kidney disease; N18.32 Chronic kidney disease, stage 3b; G47.33 Obstructive sleep apnea (adult) (pediatric); I12.9 Hypertensive chronic kidney disease with stage 1 through stage 4 chronic kidney disease, or unspecified chronic kidney disease; K21.9 Gastro-esophageal reflux disease without esophagitis
CPT/HCPCS: 36415; 80053; 80061; 80323; 82306; 82607; 82728; 82746; 83036; 83540; 83735; 84100; 84425; 84443; 84550; 84630; 85027; G0480

== ENCOUNTER → 2024-09-04 | Outpatient (CLI) | payer MEDICARE, SELFPAY ==
[2024-09-10 09:21] LABS: H. PYLORI STOOL AG Negative (Negative)
== END | disposition home or self-care (01) ==
PROVIDERS: PCP Internal Medicine
DX: Z01.812 Encounter for preprocedural laboratory examination (principal); E66.01 Morbid (severe) obesity due to excess calories; E11.9 Type 2 diabetes mellitus without complications; G47.33 Obstructive sleep apnea (adult) (pediatric); I10 Essential (primary) hypertension; K21.9 Gastro-esophageal reflux disease without esophagitis
CPT/HCPCS: 87338

== ENCOUNTER → 2024-09-11 | Outpatient (CLI) | payer MEDICARE, SELFPAY ==
--- NOTE | 2024-09-11 12:31 | BI_ITS ---
MAMMOGRAPHY - BILATERAL SCREENING REASON FOR EXAM: Female, 69 years old. Routine annual screening examination. PERTINENT HISTORY: Sister with breast cancer. TECHNIQUE: Digital bilateral breast mikala (3D mammographic acquisition) in the CC and MLO projections. 2-D mediolateral oblique (MLO) and craniocaudad (CC) views of both breasts were obtained. CAD: Full Field Digital Mammography with Computer Added Detection was performed. COMPARISON: Comparison is made with prior study dated September 22, 2021. FINDINGS: Breast Composition: There are scattered areas of fibroglandular density. There are no dominant masses or suspicious calcifications. There is a 3.6 mm well-defined nodule in the central aspect of the left breast. Correlation with ultrasound recommended. No other significant abnormalities are identified. BI/SCRN MAMM (CAD)W/MIKALA BILAT IMPRESSION: 3.6 mm well-defined nodule in the central aspect of the left breast as described. Correlation with ultrasound is recommended. ASSESSMENT CATEGORY: BIRADS Category 0: Incomplete. Need additional imaging evaluation. A letter regarding these results will be sent to the patient by the facility within 30 days. Approximately 10% of breast cancers are not detected by mammography. A normal mammogram should not delay biopsy of a clinically suspicious abnormality. [id number] Electronically Signed: Bernardo Queen MD at 14:38 EST ,
--- NOTE | 2024-09-11 12:43 | BD_ITS ---
STUDY: DUAL ENERGY X-RAY ABSORPTIOMETRY / DXA REASON FOR EXAM: Female, 69 years old. Post menopausal TECHNIQUE: Bone Mineral Density (BMD) measurements of lumbar spine and bilateral hips were obtained. COMPARISON: Comparison is made with prior study dated September 22, 2021. FINDINGS: Lumbar Spine (L1-L4): g/cm2 (0.885) / T-score (-2.0) / Z-score (0.2) Findings are suggestive of osteopenia with a high fracture risk. Left Femur Total: g/cm2 (0.821) / T-score (-1.0) / Z-score (0.5) Left Femoral Neck: g/cm2 (0.605) / T-score (-2.2) / Z-score (-0.4) Right Femur Total: g/cm2 (0.845) / T-score (-0.8) / Z-score (0.7) Right Femoral Neck: g/cm2 (0.597) / T-score (-2.3) / Z-score (-0.5) The T-Scores on the most recent prior examination were: Lumbar Spine (L1-L4): There has been worsening of bone density since the previous examination. Left Femur Total: which represents a worsening of 3.9%. Right Femur Total: which represents a worsening of 0.9%. BD/Dexa Bone Density Study IMPRESSION: The patient is considered osteopenic as outlined below according to World Fidel Organization (WHO) criteria with a high fracture risk. There has been worsening of bone density since the previous examination. Reference Information: The T-score is the number of standard deviations above or below the standard which is normal for young adults at their peak bone mineral density. The World Health Organization (WHO) interprets the T-scores as follows: Above -1 Normal bone density Between -1 and -2.5 Osteopenia Equal to / or below -2.5 Osteoporosis As a practical clinical guideline, osteopenia may be graded as follows: Mild -1 through -1.5 Moderate -1.6 through -2.0 Severe -2.1 through -2.4 The Z-score is the number of standard deviations above or below age-matched controls. A Z-score of less than -1.5 would be considered abnormal. References: 1. NIH Osteoporosis and Related Bone Diseases www osteo.org 2. International Society for Clinical Densitometry www iscd.org 3. National Osteoporosis Foundation www nof.org Electronically Signed: Bernardo Queen MD at 8:46 EST ,
== END | disposition home or self-care (01) ==
LOC: OPBD 12:31
PROVIDERS: PCP Internal Medicine; Referring Provider Internal Medicine; Visit Provider Internal Medicine
DX: Z12.31 Encounter for screening mammogram for malignant neoplasm of breast (principal); Z78.0 Asymptomatic menopausal state
CPT/HCPCS: 77063; 77067; 77080

== ENCOUNTER → 2024-09-13 | Outpatient (CLI) | payer MEDICARE, SELFPAY ==
--- NOTE | 2024-09-13 11:07 | US_ITS ---
STUDY: ULTRASOUND BREAST - LEFT REASON FOR EXAM: Female, 69 years old. Abnormal screening mammogram. TECHNIQUE: Axial and longitudinal images of the LEFT breast were performed with a high resolution ultrasound transducer. # OF IMAGES: 37 COMPARISON: Comparison is made with prior mammogram dated September 11, 2024. FINDINGS: LEFT Breast: The upper outer quadrant of the left breast was examined with ultrasound. There is a 6 mm x 4 mm x 2 mm hypoechoic relatively well-defined nodule at the 2:00 position of the breast and 5 cm from the nipple. Increased vascularity is seen. Biopsy recommended. There is also evidence of a 5 mm x 5 mm x 2 mm focal well-defined nodule at the 2:00 position breast 6 cm from nipple. No vascularity is seen. US/Breast Limited Unilateral IMPRESSION: 6 mm x 4 mm x 2 mm hypoechoic relatively well-defined nodule at the 2:00 position of the breast at 5 cm from the nipple. This evidence of increased vascularity. Biopsy recommended. ASSESSMENT CATEGORY: BIRADS Category 4: Suspicious - Biopsy Should Be Considered. A letter regarding these results will be sent to the patient by the facility within 30 days. Electronically Signed: Bernardo Queen MD at 13:16 EST ,
== END | disposition home or self-care (01) ==
LOC: OPUS 11:05
PROVIDERS: PCP Internal Medicine; Referring Provider Internal Medicine; Visit Provider Internal Medicine
DX: N63.21 Unspecified lump in the left breast, upper outer quadrant (principal); R92.8 Other abnormal and inconclusive findings on diagnostic imaging of breast
CPT/HCPCS: 76642

== ENCOUNTER → 2024-10-05 | Outpatient (CLI) | payer MEDICARE, SELFPAY ==
--- NOTE | 2024-10-05 | BRBX_PTH ---
PATIENT: YVES NIÑO LOC: [facility] U#:[id number] AGE/SX: 69/F ROOM: RE10/05/[address]: Dr. Kan Donaldson MD : 1955 BED: DIS: 10/05/2024 SPEC #: [id number] RECD: 10/05/24 10:11 STATUS: JEF DIAZ #: [id number] RHYS: 10/05/24 00:[address]: Kan Donaldson DEPT: SURGICAL PATHOLOGY RECD BY: Flori Card ENTERED: 10/05/24 11:45 SP TYPE: BREAST BX OTHR DR: Dr. Vamsi Epperson MD Tissues: Left breast, NOS Procedures: Surgery Specimen Level IV HEADER OPERATION: Ultrasound guided breast biopsy PRE-OP DIAGNOSIS: Left breast lesion x5 passes TISSUE SUBMITTED: Left breast lesion MICROSCOPIC DIAGNOSIS Left breast lesion, ultrasound guided core biopsy: Fragments of fatty benign breast tissue with minimal intraductal hyperplasia without atypia. Negative for malignancy. See comment. 10/08/2024 COMMENT Correlation with clinical, radiologic findings and appropriate follow up are necessary. MICROSCOPIC DESCRIPTION Slides are reviewed. GROSS DESCRIPTION Received in fixative is one container labeled with the patient's name and designated Left breast. The specimen consists of multiple elongated fragments of light bella soft tissue that in aggregate measure 2.5 x 2.0 x 0.1 cm. The specimen is totally submitted in one cassette. 10/05/2024 TC:5 CPT:72303
--- NOTE | 2024-10-05 07:43 | US_ITS ---
STUDY: ULTRASOUND BREAST - LEFT REASON FOR EXAM: Female, 69 years old. Left breast biopsy. TECHNIQUE: Axial and longitudinal images of the LEFT breast were performed with a high resolution ultrasound transducer. # OF IMAGES: 29 COMPARISON: Comparison is made with prior sonogram of the left breast dated September 13, 2024. FINDINGS: LEFT Breast: Under direct sonographic guidance, the surgeon performed core biopsies of the 5 mm x 4 mm x 2 mm hypoechoic solid nodule at the 2:00 position of the breast at 5 cm from the nipple. US/US Breast Biopsy 1st Lesion IMPRESSION: Ultrasound-guided breast biopsy as described. Electronically Signed: Bernardo Queen MD at 13:09 EST ,
--- NOTE | 2024-10-05 09:27 | BI_ITS ---
MAMMOGRAPHY - UNILATERAL DIAGNOSTIC: LEFT BREAST REASON FOR EXAM: Female, 69 years old. Placement following biopsy. PERTINENT HISTORY: TECHNIQUE: Mediolateral oblique and craniocaudad views were obtained. CAD: Full Field Digital Mammography with Computer Added Detection was performed. COMPARISON: Comparison is made with prior study dated September 11, 2024. FINDINGS: Breast Composition: There are scattered areas of fibroglandular density. There are no dominant masses or suspicious calcifications. A tissue clip marker is seen in the central aspect of the left breast. This is within a tiny nodule. No other significant abnormalities are identified. BI/DIAG MAMM W/CAD, UNILAT IMPRESSION: Stable unilateral diagnostic mammogram. One year follow-up mammogram recommended. (A) ASSESSMENT CATEGORY: BIRADS Category 2: Benign. A letter regarding these results will be sent to the patient by the facility within 30 days. Approximately 10% of breast cancers are not detected by mammography. A normal mammogram should not delay biopsy of a clinically suspicious abnormality. Electronically Signed: Bernardo Queen MD at 11:49 EST ,
--- NOTE | 2024-10-05 09:53 | PCM.OPRPT ---
Problems Associated Problem List Diagnoses (1) Unspecified lump in the left breast, upper outer quadrant: Procedures Integumentary [id number]: [id number] Bx breast 1st lesion us imag Operative Report (Standard) Operative Information Date of Procedure: 10/05/24 Pre-Operative Diagnosis: Abnormal left breast mammogram and ultrasound Post-Operative Diagnosis: Same Surgery/Procedure Performed: Left breast ultrasound-guided mammotome suction biopsy credit collection specialist: No Type of Anesthesia: Local Procedure Start Time: 09:00 Procedure Stop Time: :20 Select all DRAINS/GRAFTS/IMPLANTS that apply: Implanted device Implanted device details: Marking clip was placed at the completion of the biopsy Special Medications: None Estimated Blood Loss: Minimal Fluids Replaced: None Specimen collected: Yes Description of specimen(s) removed: Left breast tissue Description of surgery: After obtaining informed consent, the patient was placed supine on the procedure room cart. The supply chain tech was able to locate the lesion in question. This was very difficult to identify due to its small size and other similar appearing structures in the area. Once we were very confident that we had found the lesion in question, the area was then prepped and draped in the usual sterile manner. Local anesthetic with epinephrine was injected into the area. A #11 blade was then used to make a small incision. The mammotome device was then inserted and was positioned under ultrasound guidance such that the lesion in question was adjacent to the suction biopsy trough. At this point, a total of about 5 passes were made at the small lesion to ensure that this was adequately biopsy. This seemed to disappear as biopsying was performed. Patient tolerated this portion well. A marking clip was then deployed also under ultrasound guidance. A dressing consisting of Mastisol and Steri-Strips and an OpSite were applied as dressing. She tolerated the procedure very well. I will contact her once results become available Surgical Findings: See operative note Complications Complications: No Admit VTE Documentation VTE Present on Admission: No VTE Mechan Device Prophylaxis: None VTE Pharm Prophylaxis ordered?: No Reason prophylaxis not ordered: Treatment Not Indicated
== END | disposition home or self-care (01) ==
PROVIDERS: PCP Internal Medicine; Referring Provider Surgery; Visit Provider Surgery
DX: N62 Hypertrophy of breast (principal); R92.8 Other abnormal and inconclusive findings on diagnostic imaging of breast
CPT/HCPCS: 19083

== ENCOUNTER → 2024-12-07 | Outpatient (CLI) | payer MEDICARE, SELFPAY ==
[2024-12-07 15:04] LABS: Hematocrit 36.1 % (37-47); Hemoglobin 11.2 g/dL (12.0-15.0); Mean Corpuscular Hgb 28.4 pg (27.0-32.0); Mean Corpuscular Volume 91.4 fL (81-99); Mean Platelet Vol. 13.6 fl (6.2-12.0); Platelet Count 203 K/mm3 (150-450); RBC Distribution Width CV 17.2 % (11.6-14.6); RBC Distribution Width SD 58.2 fl (35.1-43.9); Red Blood Count 3.95 M/mm3 (4.2-5.4); White Blood Count 6.3 K/mm3 (4.4-11.0)
[2024-12-07 16:20] LABS: ALB/GLOB Ratio 1.3 RATIO (0.9-2.4); AST(SGOT) 30 U/L (<=31); Alanine Aminotransfer ALT/SGPT 26 U/L (<=34); Albumin, Serum 3.8 g/dL (3.4-4.8); Alkaline Phosphatase 139 U/L (35-104); Anion Gap 14 (5-15); BUN 24 mg/dL (4-19); BUN/Creat Ratio 17.4 RATIO (10-20); Calcium,Total 10.8 mg/dL (7.6-11.0); Carbon Dioxide 20.7 mmol/L (21.0-32.0); Chloride 105 mmol/L (98-108); EST Glomerular Filtration Rate 41 (>60); Ferritin 43 ng/mL (22-378); Globulin 2.9 g/dL (2.2-4.2); Glucose 133 mg/dL (70-99); Iron 40 ug/dL (50-170); Magnesium 1.4 mg/dL (1.5-2.2); Potassium 4.2 mmol/L (3.3-5.1); Protein, Total 6.7 g/dL (5.9-8.4); Sodium Level 140 mmol/L (133-145); Total Bilirubin 0.47 mg/dL (0.00-1.30); Vitamin B12 1485 pg/mL (180-914)
[2024-12-07 16:22] LABS: FOLATES,SERUM (FOLIC ACID) 5.39 ng/mL (4.60-34.80)
[2024-12-07 18:57] LABS: Cholesterol 163 mg/dL (<=200); High Density Lipoprotein 38 mg/dL; Low Density Lipoprotein Calc. 85 mg/dL; Triglycerides 203 mg/dL; Uric Acid 11.7 mg/dL (2.6-6.0); Very Low Density Lipoprotein 41 mg/dL (5-40); cholesterol:hdl ratio screen 4.34
[2024-12-12 16:09] LABS: Zinc, Plasma or Serum 129 ug/dL (44-115)
== END | disposition home or self-care (01) ==
LOC: BIMLAB 11:56
PROVIDERS: Registered Nurse Nephrology; PCP Internal Medicine; Referring Provider Internal Medicine; Visit Provider Internal Medicine
DX: E61.7 Deficiency of multiple nutrient elements (principal); E66.01 Morbid (severe) obesity due to excess calories; Z68.41 Body mass index [BMI] 40.0-44.9, adult; E11.9 Type 2 diabetes mellitus without complications; K90.9 Intestinal malabsorption, unspecified; Z98.84 Bariatric surgery status; G47.33 Obstructive sleep apnea (adult) (pediatric); E78.5 Hyperlipidemia, unspecified; M10.9 Gout, unspecified
CPT/HCPCS: 36415; 80053; 80061; 82607; 82728; 82746; 83036; 83540; 83735; 84550; 84630; 85027